=== PATIENT | male | born 1940 | race Caucasian/White ===

== ENCOUNTER → 2016-11-02 | Outpatient (CLI) | payer MEDICARE ==
[2016-11-02 12:49] LABS: Blood Urea Nitrogen 19 mg/dL (9-20); Non-African American GFR(MDRD) 57 (>60 ml/min/1.73 sqM)
--- NOTE | 2016-11-02 14:07 | CT ---
EXAMINATION TYPE: CT chest w con DATE OF EXAM: 11/02/2016 1:39 PM COMPARISON: 08/01/2016 HISTORY: Lung CA CT DLP: 489.7 mGycm Automated exposure control for dose reduction was used. CONTRAST: CT scan of the chest is performed with IV Contrast, patient injected with 80 mL of Visipaque 320. FINDINGS: LUNGS: Upper thoracic right paraspinal mass is again noted and currently measures 2.9 x 1.7 cm versus 2.8 x 1.7 cm previously. No additional paraspinal masses are seen. The lungs are grossly clear, ther e is no concerning parenchymal mass or nodule identified. Continued a partially loculated left-sided pleural effusion with associated pleural thickening. The tracheobronchial tree is patent. MEDIASTINUM: There are no greater than 1 cm hilar or mediastinal lymph nodes. No pericardial effusi on is seen. Thoracic aorta is of normal caliber. The heart is not enlarged. UPPER ABDOMEN: No significant abnormality appreciated. OTHER: 4.5 cm left renal cyst. IMPRESSION: 1. Essentially stable evaluation of the chest with stable right paraspinal mass and stable left basil ar partially loculated effusion.
== END | disposition home or self-care (01) ==
LOC: RADCTMAIN 12:01
PROVIDERS: ATTEND Internal Medicine Hematology & Oncology
DX: J90 Pleural effusion, not elsewhere classified (principal); C34.11 Malignant neoplasm of upper lobe, right bronchus or lung
CPT/HCPCS: 82565; 84520; 71260; 36415; Q9967

== ENCOUNTER → 2017-01-16 | Outpatient (CLI) | payer MEDICARE ==
[2017-01-16 09:24] LABS: Blood Urea Nitrogen 22 mg/dL (9-20); Non-African American GFR(MDRD) 59 (>60 ml/min/1.73 sqM)
--- NOTE | 2017-01-16 10:51 | CT ---
EXAMINATION TYPE: CT chest w con DATE OF EXAM: 01/16/2017 10:13 AM COMPARISON: 11/02/2016 HISTORY: Patient has no complaints at time of study. Follow up study for known lung CA. CT DLP: 424.3 mGycm, Automated exposure control for dose reduction was used. CONTRAST: Performed injected with 80 mL of Visipaque 320. TECHNIQUE: Axial images were obtained at 5 mm thick sections. Reconstructed images are reviewed on [facility] computer in the coronal plane. FINDINGS: Portion of the thyroid visualized is normal. There is a nodular density in the posterior medial right lung apex measuring 1.7 x 2.6 cm versus 2.9 x 1.7 previously. No enlargement is evident. There is a 1.0 cm lymph node anterior to the ascending thoracic aorta which is smaller from prior. T ascending aorta diameter at the level of the main pulmonary artery is 4.0 cm. The main pulmonary artery diameter at the bifurcation is 3.0 cm. Coronary artery calcifications present. There is a small left pleural fluid collection may be smaller than prior study. Limited CT sections are obtained through the upper abdomen. Abdomen is essentially unremarkable. IMPRESSIONS: 1. Slight diminished size of the paraspinal mass and borderline size superior mediastinal lymph node comparison of October 2016.
== END | disposition home or self-care (01) ==
LOC: RADCTMAIN 08:42
PROVIDERS: ATTEND Internal Medicine Hematology & Oncology
DX: C34.11 Malignant neoplasm of upper lobe, right bronchus or lung (principal)
CPT/HCPCS: 82565; 84520; 71260; 36415; Q9967

== ENCOUNTER → 2017-04-10 | Outpatient (CLI) | payer MEDICARE ==
--- NOTE | 2017-04-10 14:59 | CT ---
EXAMINATION TYPE: CT chest wo con DATE OF EXAM: 04/10/2017 COMPARISON: 01/16/2017 HISTORY: Patient complains of chest tightness with known history of chest CA. CT DLP: 452.[address] of the chest was performed with lung and mediastinal window settings submitted. Contras t was not utilized given abnormal renal function testing. The lack of contrast limits evaluation of t he vascular, mediastinal and parenchymal structures including the upper abdomen. LUNGS: Right paraspinal mass of indeterminate etiology is unchanged and measures 1.6 x 2.6 cm versus 2.6 x 1.7 cm previously. Stable loculated pleural effusion small in size left lower lobe and associat ed left basilar density. No evidence for left lower lobe mass. Stable right lower lobe pulmonary nodu le measuring 3 mm. No additional nodules seen at this time. MEDIASTINUM/HENRIETTA: Ectasia and atheromatous change of the thoracic aorta. The heart is mildly enlarged . No evidence for mediastinal mass. Stable mediastinal lymph nodes. UPPER ABDOMEN: No significant abnormality is seen. OTHER: No significant other abnormality. IMPRESSION: 1. Stable appearance of the chest with loculated left basilar effusion with adjacent parenchymal sca rring or atelectasis and mild pleural thickening. 2. Smoothly marginated right paraspinal mass is also unchanged as is a right lower lobe pulmonary nod ule.
== END | disposition home or self-care (01) ==
LOC: RADCTMAIN 13:20
PROVIDERS: ATTEND Internal Medicine Hematology & Oncology
DX: C34.11 Malignant neoplasm of upper lobe, right bronchus or lung (principal); J91.0 Malignant pleural effusion
CPT/HCPCS: 71250; 82565; 84520

== ENCOUNTER 2017-08-17 12:20 | Emergency (ER) | payer MEDICARE ==
[2017-08-17] MEDS ORDERED: SODIUM CHLORIDE 0.9% 500 ML IV ONE (12:48)
[2017-08-17] MEDS ORDERED: ACETAMINOPHEN TAB 325 MG TAB PO STA (12:48)
--- NOTE | 2017-08-17 12:48 | ED ---
URI HPI - General Chief Complaint: Upper Respiratory Infection Stated Complaint: COUGH/CA PT Time Seen by Provider: 08/17/17 12:28 Source: patient Mode of arrival: ambulatory Limitations: no limitations - History of Present Illness Initial Comments: 77-year-old male patient presents to the emergency department today for evaluation of cough, congestion, and upper respiratory symptoms. Patient states that symptoms started approximately 2 days ago. Patient states he has felt chilled and feverish with this. Patient states that his is sick with similar symptoms. He states that he does get mildly short of breath with activity. States he does have some left-sided chest pain with coughing. 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 His only treatment has been thoracentesis to drain fluid. He states that additionally at 1 month ago he slipped on the ice, breaking a rib on the left side. Patient reports that he is coughing of dark colored sputum. The states he does have nasal congestion. He denies taking anything for pain or fever today. He reports he does receive the influenza and pneumonia vaccines. Patient denies any recent rash, abdominal pain, nausea, vomiting, diarrhea, constipation, back pain, numbness, tingling, dizziness, weakness, hematuria, dysuria, urinary urgency, urinary frequency, headache, visual changes, or any other complaints. - Related Data Home Medications Medication Instructions Recorded Confirmed FLUoxetine HCL [PROzac] 20 mg PO DAILY 08/05/14 12/02/15 Fluticasone Propionate [Flonase] 1 - 2 spray EA NOSTRIL DAILY 08/05/14 12/02/15 Fluticasone/Salmeterol [Advair 1 inhalation PO BID 08/05/14 12/02/15 250-50 Diskus] Levothyroxine Sodium [Synthroid] 50 mcg PO DAILY 08/05/14 12/02/15 Montelukast [Singulair] 10 mg PO HS 08/05/14 12/02/15 Omeprazole [PriLOSEC] 40 mg PO DAILY 08/05/14 12/02/15 Pravastatin Sodium [Pravachol] 40 mg PO HS 08/05/14 12/02/15 Tamsulosin [Flomax] 0.4 mg PO DAILY 08/05/14 12/02/15 amLODIPine BESYLATE [Norvasc] 10 mg PO DAILY 08/05/14 12/02/15 Cetirizine HCl [Zyrtec] 10 mg PO DAILY 11/24/15 12/02/15 Clopidogrel Bisulfate [Clopidogrel] 75 mg PO DAILY 12/02/15 12/03/15 Previous Rx's Medication Instructions Recorded ALPRAZolam [Xanax] 0.25 mg PO Q8H PRN #20 tab 11/26/15 HYDROcodone/APAP 5-325MG [[place] 1 each PO Q6HR PRN #20 tab 11/26/15 5-325] Ipratropium Nebulized [Atrovent 0.5 mg INHALATION QID #120 neb 11/26/15 Nebulized] Levalbuterol Nebulized [Xopenex 1.25 mg INHALATION QID #120 ml 11/26/15 Nebulized] Multivitamins, Thera [Multivitamin 1 each PO DAILY@1200 #30 tab 11/26/15 (formulary)] Azithromycin [Zithromax] 500 mg PO DAILY #7 tab 11/27/15 Cefuroxime Axetil [Ceftin] 500 mg PO BID #14 tablet 11/27/15 predniSONE 10 mg PO DIRECTED #30 tab 11/27/15 Benzonatate [Tessalon Perles] 100 mg PO TID PRN #15 capsule 08/17/17 Oseltamivir [Tamiflu] 75 mg PO Q12HR #10 cap 08/17/17 Allergies Allergy/AdvReac Type Severity Reaction Status Date / Time No Known Allergies Allergy Verified 08/17/17 12:26 Review of Systems ROS Statement: Those systems with pertinent positive or pertinent negative responses have been documented in the HPI. ROS Other: All systems not noted in ROS Statement are negative. Past Medical History Past Medical History: Asthma, Cancer, COPD, GERD/Reflux, Osteoarthritis (OA), Pneumonia, Sleep Apnea/CPAP/BIPAP Additional Past Medical History / Comment(s): DIVERTICULITIS,GERD, PAST SMALL BOWEL OBSTRUCTION(HAS SX), BRONCHITIS, STATED HAS BEEN TO PAIN MANAGMENT FOR BACK PAIN, SHINGLES 1970'S, DOES'NT USE CPAP MACHINE FOR HIS SLEEP APNEA.PROSTATE CANCER 2006-HAD RADIATION [place] History of Any Multi-Drug Resistant Organisms: None Reported Past Surgical History: Bowel Resection, Heart Catheterization With Stent, Orthopedic Surgery, Tonsillectomy Additional Past Surgical History / Comment(s): SOL EAR SX,SINUS SX X2, PT STATED HE AHD SX FOR GERD/HIATAL HERNIA, BOWEL RESECTON D/T RUPTUR-HAD TEMPROARY COLOSTOMY-SINCE REVERSED, BOWEL SX FOR SBO, SOL SHOULDER REPLACMENT, SOL KNEE REPLACMENT. Past Anesthesia/Blood Transfusion Reactions: Motion Sickness Date of Last Stent Placement:: UNK Past Psychological History: No Psychological Hx Reported Smoking Status: Former smoker Past Alcohol Use History: Rare Past Drug Use History: None Reported - Past Family History Mother Family Medical History: Cancer Additional Family Medical History / Comment(s): MULTIPLE MEYLOMA Father Family Medical History: Cancer Additional Family Medical History / Comment(s): LUNG CANCER Sister(s) Family Medical History: Cancer Son(s) Family Medical History: Cancer General Exam Limitations: no limitations General appearance: alert, in no apparent distress, other (This is a well- developed, well-nourished elderly male patient in no acute distress. Vital signs upon presentation are temperature 99.0F, pulse 104, respirations 17, blood pressure 133/86, pulse ox 94% on room air.) Eye exam: Present: normal appearance, PERRL, EOMI. Absent: scleral icterus, conjunctival injection, periorbital swelling ENT exam: Present: normal exam, normal oropharynx, mucous membranes moist, TM's normal bilaterally Neck exam: Present: normal inspection. Absent: tenderness, meningismus, lymphadenopathy Respiratory exam: Present: normal lung sounds bilaterally, chest wall tenderness (Left sided). Absent: respiratory distress, wheezes, rales, rhonchi , stridor Cardiovascular Exam: Present: normal rhythm, tachycardia, normal heart sounds. Absent: systolic murmur, diastolic murmur, rubs, gallop, clicks GI/Abdominal exam: Present: soft, normal bowel sounds. Absent: distended, tenderness, guarding, rebound, rigid Neurological exam: Present: alert, oriented X3, CN II-XII intact Psychiatric exam: Present: normal affect, normal mood Skin exam: Present: warm, dry, intact, normal color. Absent: rash Course Vital Signs 08/17/17 08/17/17 08/17/17 12:21 13:00 14:19 Temperature 99.0 F 99 F Pulse Rate 104 H 100 95 Respiratory 17 24 18 Rate Blood Pressure 133/86 131/82 150/88 O2 Sat by Pulse 94 L 94 L 95 Oximetry Medical Decision Making - Medical Decision Making 77-year-old male patient presented to the emergency department today with complaints of upper respiratory symptoms and cough 2 days. Patient physical examination was unremarkable. Lungs are clear. Temperature was mildly elevated with some tachycardia. Patient was given IV fluids and antipyretics. Vital signs did improve during stay. Patient lab work was reviewed and did show a positive influenza A. Patient will be treated with Tamiflu and Tessalon Perles for cough. He is instructed to increase fluids, rest, and follow-up with his doctor in 2 days for recheck. He is instructed to return here immediate for any new, worsening, or concerning symptoms. He verbalizes understanding and agrees with this plan. - Lab Data Result diagrams: 08/17/17 12:55 08/17/17 12:55 Lab Results 08/17/17 08/17/17 08/17/17 Range/Units 12:55 12:55 12:55 WBC 7.1 (3.8-10.6) k/uL RBC 4.50 (4.30-5.90) m/uL Hgb 13.2 (13.0-17.5) gm/dL Hct 40.6 (39.0-53.0) % MCV 90.3 (80.0-100.0) fL MCH 29.3 (25.0-35.0) pg MCHC 32.4 (31.0-37.0) g/dL RDW 15.6 H (11.5-15.5) % Plt Count 172 (150-450) k/uL Neutrophils % 84 % Lymphocytes % 6 % Monocytes % 6 % Eosinophils % 3 % Basophils % 0 % Neutrophils # 5.9 (1.3-7.7) k/uL Lymphocytes # 0.4 L (1.0-4.8) k/uL Monocytes # 0.4 (0-1.0) k/uL Eosinophils # 0.2 (0-0.7) k/uL Basophils # 0.0 (0-0.2) k/uL Sodium 135 L (137-145) mmol/L Potassium 4.4 (3.5-5.1) mmol/L Chloride 102 (98-107) mmol/L Carbon Dioxide 23 (22-30) mmol/L Anion Gap 10 mmol/L BUN 15 (9-20) mg/dL Creatinine 1.10 (0.66-1.25) mg/dL Est GFR (MDRD) Af Amer >60 (>60 ml/min/1.73 sqM) Est GFR (MDRD) Non-Af >60 (>60 ml/min/1.73 sqM) Glucose 109 H (74-99) mg/dL Plasma Lactic Acid Vel (0.7-2.0) mmol/L Calcium 10.0 (8.4-10.2) mg/dL Influenza Type A RNA Detected H (Not Detectd) Influenza Type B (PCR) Not Detected (Not Detectd) 08/17/17 Range/Units 12:55 WBC (3.8-10.6) k/uL RBC (4.30-5.90) m/uL Hgb (13.0-17.5) gm/dL Hct (39.0-53.0) % MCV (80.0-100.0) fL MCH (25.0-35.0) pg MCHC (31.0-37.0) g/dL RDW (11.5-15.5) % Plt Count (150-450) k/uL Neutrophils % % Lymphocytes % % Monocytes % % Eosinophils % % Basophils % % Neutrophils # (1.3-7.7) k/uL Lymphocytes # (1.0-4.8) k/uL Monocytes # (0-1.0) k/uL Eosinophils # (0-0.7) k/uL Basophils # (0-0.2) k/uL Sodium (137-145) mmol/L Potassium (3.5-5.1) mmol/L Chloride (98-107) mmol/L Carbon Dioxide (22-30) mmol/L Anion Gap mmol/L BUN (9-20) mg/dL Creatinine (0.66-1.25) mg/dL Est GFR (MDRD) Af Amer (>60 ml/min/1.73 sqM) Est GFR (MDRD) Non-Af (>60 ml/min/1.73 sqM) Glucose (74-99) mg/dL Plasma Lactic Acid Vel 1.6 (0.7-2.0) mmol/L Calcium (8.4-10.2) mg/dL Influenza Type A RNA (Not Detectd) Influenza Type B (PCR) (Not Detectd) - Radiology Data Radiology results: report reviewed, image reviewed Two-view x-ray of the chest was obtained, impression by Dr. Cedillo shows chronic parenchymal change or tiny left pleural effusion associated left basilar scarring and/or atelectasis redemonstrated. No no infiltrate is seen. No significant change from the most recent study or CT noted. Disposition Clinical Impression: Influenza A Disposition: HOME SELF-CARE Condition: Good Instructions: Influenza (ED) Additional Instructions: Rest, increase fluids, take medications as directed. Follow-up with your primary care physician for recheck in 1-2 days. Return here immediately for any new, worsening, or concerning symptoms. Prescriptions: Benzonatate [Tessalon Perles] 100 mg PO TID PRN #15 capsule PRN Reason: Cough Oseltamivir [Tamiflu] 75 mg PO Q12HR #10 cap Referrals: Roxie Melendez DO [Primary Care Provider] - 1-2 days Time of Disposition: 13:53
[2017-08-17 13:13] LABS: Basophils % (A) 0 %; CH 30.5; CHCM 33.9; Eosinophils # (A) 0.2 k/uL (0-0.7); Eosinophils % (A) 3 %; HCT 40.6 % (39.0-53.0); HDW 2.55; HGB 13.2 gm/dL (13.0-17.5); Luc # (Auto) 0.11; Luc % (Auto) 2; Lymphocytes # (A) 0.4 k/uL (1.0-4.8); Lymphocytes % (A) 6 %; MCH 29.3 pg (25.0-35.0); MCHC 32.4 g/dL (31.0-37.0); MCV 90.3 fL (80.0-100.0); Mean Platelet Volume 7.4; Monocytes # (A) 0.4 k/uL (0-1.0); Monocytes % (A) 6 %; Neutrophils # (A) 5.9 k/uL (1.3-7.7); Neutrophils % (A) 84 %; RDW 15.6 % (11.5-15.5); WBC 7.1 k/uL (3.8-10.6); WBC (Perox) 7.26
--- NOTE | 2017-08-17 13:29 | XR ---
EXAMINATION TYPE: XR chest 2V DATE OF EXAM: 08/17/2017 COMPARISON: CT chest April 10, 2017 2 view chest x-ray January 20, 2016 HISTORY: Chest pain per order. Cough for a few days. TECHNIQUE: Frontal and lateral views of the chest are obtained. FINDINGS: Metallic hardware from bilateral shoulder surgery is partially imaged. Cardiac silhouette size is stable and upper limits of normal with atherosclerotic and ectatic thoracic aorta. There is c hronic parenchymal change with persistent tiny left pleural effusion and associated left basilar atel ectasis and/or scarring, this is improved from prior chest x-ray not significant change from recent C T. Right lung remains clear. IMPRESSION: Chronic parenchymal change with tiny left pleural effusion and associated left basilar s carring and/or atelectasis redemonstrated. No new infiltrate is seen. No significant change from most recent study or CT noted.
[2017-08-17 13:34] LABS: Anion Gap 10 mmol/L; Blood Urea Nitrogen 15 mg/dL (9-20); Carbon Dioxide 23 mmol/L (22-30); Chloride 102 mmol/L (98-107); Glucose 109 mg/dL (74-99); Non-African American GFR(MDRD) >60 (>60 ml/min/1.73 sqM); Potassium 4.4 mmol/L (3.5-5.1); Sodium 135 mmol/L (137-145)
[2017-08-17 14:20] VITALS: BP 150/88; PULSE 95; RESP 18; TEMP 99
== END 2017-08-17 14:19 | disposition home or self-care (01) ==
LOC: EC 12:20
DX: J10.1 Influenza due to other identified influenza virus with other respiratory manifestations (principal); R00.0 Tachycardia, unspecified; J44.9 Chronic obstructive pulmonary disease, unspecified; K21.9 Gastro-esophageal reflux disease without esophagitis; G47.30 Sleep apnea, unspecified; Z99.89 Dependence on other enabling machines and devices; Z85.46 Personal history of malignant neoplasm of prostate; Z87.891 Personal history of nicotine dependence; Z87.01 Personal history of pneumonia (recurrent); Z79.51 Long term (current) use of inhaled steroids; Z79.899 Other long term (current) drug therapy
CPT/HCPCS: 36415; 71020; 80048; 83605; 85025; 87040; 87502; 93005; 96360; 99284

== ENCOUNTER → 2017-09-04 | Outpatient (CLI) | payer MEDICARE ==
[2017-09-04 08:21] LABS: Blood Urea Nitrogen 25 mg/dL (9-20)
--- NOTE | 2017-09-04 09:19 | CT ---
EXAMINATION TYPE: CT chest w con DATE OF EXAM: 09/04/2017 COMPARISON: 04/10/2017 HISTORY: Lung cancer CT DLP: 527 mGycm Automated exposure control for dose reduction was used. CONTRAST: CT scan of the chest is performed with IV Contrast, patient injected with 100 ml mL of Omnipaque 300. FINDINGS: LUNGS: Right paraspinal mass of indeterminate etiology is unchanged and measures 1.6 x 2.6 cm versus 2.6 x 1.7 cm previously. Stable loculated pleural effusion small in size left lower lobe and associat ed left basilar density. No evidence for left lower lobe mass. Stable right lower lobe pulmonary nodu le measuring 3 mm. No additional nodules seen at this time. Additional 3 mm nodule in the right upper lobe and perihilar region stable relative to the previous axial image 30. Emphysematous changes sugg est COPD. MEDIASTINUM: Ectasia and atheromatous change of the thoracic aorta. The heart is mildly enlarged. No evidence for mediastinal mass. Stable mediastinal lymph nodes. Dense coronary artery calcification no moody and there is a trace of pericardial fluid or thickening. Shotty mediastinal and hilar adenopathy. OTHER: Hypertrophic and degenerative change of the spine. Stable upper pole left renal cyst measurin g 1 Hounsfield unit. Postsurgical change left shoulder. IMPRESSION: 1. Stable appearance of the chest with loculated left basilar effusion with adjacent parenchymal scar ring or atelectasis and mild pleural thickening. 2. Smoothly marginated right paraspinal mass is also unchanged as is a right lower lobe pulmonary nod ule.
== END | disposition home or self-care (01) ==
LOC: RADCTMAIN 07:40
PROVIDERS: ATTEND Internal Medicine Hematology & Oncology
DX: C34.11 Malignant neoplasm of upper lobe, right bronchus or lung (principal); J91.0 Malignant pleural effusion; R91.1 Solitary pulmonary nodule
CPT/HCPCS: 82565; 84520; 71260; 36415; Q9967

== ENCOUNTER 2018-02-12 09:44 | Emergency (ER) | payer MEDICARE ==
[2018-02-12 09:51] VITALS: BP 128/72; PULSE 64; RESP 20; TEMP 97.5
[2018-02-12] MEDS ORDERED: predniSONE 20 MG TAB PO STA (10:33)
[2018-02-12] MEDS ORDERED: FAMOTIDINE 20 MG TAB PO STA (10:33)
--- NOTE | 2018-02-12 10:36 | ED ---
General Adult HPI - General Chief complaint: Skin/Abscess/Foreign Body Stated complaint: swelling to back of neck Time Seen by Provider: 02/12/18 10:14 Source: patient Mode of arrival: ambulatory Limitations: no limitations - History of Present Illness Initial comments: Patient is a 77-year-old male who presents with a chief complaint of a skin rash and itching on the back of his neck. This has been going on since Monday when he went to a wedding. The patient cannot identify any inciting incidences though he does state he was wearing a collar sure that was buttoned tightly that he has not worn in several years. The patient denies knowledge of being stung or bit by anything. The patient states that he does not have any pain to the area however it is just itchy. Patient has tried Benadryl which is offered some relief. There are no aggravating or alleviating factors. The patient denies drainage, fever, nausea, vomiting - Related Data Home Medications Medication Instructions Recorded Confirmed FLUoxetine HCL [PROzac] 20 mg PO DAILY 08/05/14 12/02/15 Fluticasone Propionate [Flonase] 1 - 2 spray EA NOSTRIL DAILY 08/05/14 12/02/15 Fluticasone/Salmeterol [Advair 1 inhalation PO BID 08/05/14 12/02/15 250-50 Diskus] Levothyroxine Sodium [Synthroid] 50 mcg PO DAILY 08/05/14 12/02/15 Montelukast [Singulair] 10 mg PO HS 08/05/14 12/02/15 Omeprazole [PriLOSEC] 40 mg PO DAILY 08/05/14 12/02/15 Pravastatin Sodium [Pravachol] 40 mg PO HS 08/05/14 12/02/15 Tamsulosin [Flomax] 0.4 mg PO DAILY 08/05/14 12/02/15 amLODIPine BESYLATE [Norvasc] 10 mg PO DAILY 08/05/14 12/02/15 Cetirizine HCl [Zyrtec] 10 mg PO DAILY 11/24/15 12/02/15 Clopidogrel Bisulfate [Clopidogrel] 75 mg PO DAILY 12/02/15 12/03/15 Previous Rx's Medication Instructions Recorded ALPRAZolam [Xanax] 0.25 mg PO Q8H PRN #20 tab 11/26/15 HYDROcodone/APAP 5-325MG [[place] 1 each PO Q6HR PRN #20 tab 11/26/15 5-325] Ipratropium Nebulized [Atrovent 0.5 mg INHALATION QID #120 neb 11/26/15 Nebulized] Levalbuterol Nebulized [Xopenex 1.25 mg INHALATION QID #120 ml 11/26/15 Nebulized] Multivitamins, Thera [Multivitamin 1 each PO DAILY@1200 #30 tab 11/26/15 (formulary)] Azithromycin [Zithromax] 500 mg PO DAILY #7 tab 11/27/15 Cefuroxime Axetil [Ceftin] 500 mg PO BID #14 tablet 11/27/15 predniSONE 10 mg PO DIRECTED #30 tab 11/27/15 Benzonatate [Tessalon Perles] 100 mg PO TID PRN #15 capsule 08/17/17 Oseltamivir [Tamiflu] 75 mg PO Q12HR #10 cap 08/17/17 Allergies Allergy/AdvReac Type Severity Reaction Status Date / Time No Known Allergies Allergy Verified 02/12/18 09:51 Review of Systems ROS Statement: Those systems with pertinent positive or pertinent negative responses have been documented in the HPI. ROS Other: All systems not noted in ROS Statement are negative. Skin: Reports: rash, lesions Past Medical History Past Medical History: Asthma, Cancer, COPD, GERD/Reflux, Osteoarthritis (OA), Pneumonia, Sleep Apnea/CPAP/BIPAP Additional Past Medical History / Comment(s): DIVERTICULITIS,GERD, PAST SMALL BOWEL OBSTRUCTION(HAS SX), BRONCHITIS, STATED HAS BEEN TO PAIN MANAGMENT FOR BACK PAIN, SHINGLES , DOES'NT USE CPAP MACHINE FOR HIS SLEEP APNEA.PROSTATE CANCER 2006-HAD RADIATION [place] History of Any Multi-Drug Resistant Organisms: None Reported Past Surgical History: Bowel Resection, Heart Catheterization With Stent, Orthopedic Surgery, Tonsillectomy Additional Past Surgical History / Comment(s): SOL EAR SX,SINUS SX X2, PT STATED HE AHD SX FOR GERD/HIATAL HERNIA, BOWEL RESECTON D/T RUPTUR-HAD TEMPROARY COLOSTOMY-SINCE REVERSED, BOWEL SX FOR SBO, SOL SHOULDER REPLACMENT, SOL KNEE REPLACMENT. Past Anesthesia/Blood Transfusion Reactions: Motion Sickness Date of Last Stent Placement:: UNK Past Psychological History: No Psychological Hx Reported Smoking Status: Former smoker Past Alcohol Use History: Rare Past Drug Use History: None Reported - Past Family History Mother Family Medical History: Cancer Additional Family Medical History / Comment(s): MULTIPLE MEYLOMA Father Family Medical History: Cancer Additional Family Medical History / Comment(s): LUNG CANCER Sister(s) Family Medical History: Cancer Son(s) Family Medical History: Cancer General Exam Limitations: no limitations General appearance: alert, in no apparent distress Head exam: Present: atraumatic, normocephalic Eye exam: Present: normal appearance, PERRL ENT exam: Present: normal exam, mucous membranes moist Neck exam: Present: other (Patient has a mildly erythematous area spanning from C7 to the occiput. The affected area is limited to the posterior neck. There is no fluctuance, drainage, or warmth noted. There is a small lesion that is perhaps consistent with an insect bite or sting manipulation of the area is unable to produce any drainage.) Respiratory exam: Present: normal lung sounds bilaterally. Absent: respiratory distress Cardiovascular Exam: Present: regular rate, normal rhythm GI/Abdominal exam: Present: soft. Absent: distended, tenderness Rectal exam: Present: deferred Extremities exam: Present: normal inspection Back exam: Present: normal inspection Neurological exam: Present: alert, oriented X3 Psychiatric exam: Present: normal affect, normal mood Skin exam: Present: warm, dry, intact Course Vital Signs 02/12/18 09:49 Temperature 97.5 F L Pulse Rate 64 Respiratory 20 Rate Blood Pressure 128/72 O2 Sat by Pulse 96 Oximetry Medical Decision Making - Medical Decision Making Patient presents with a chief complaint of urticaria to the back of the neck. On initial evaluation, vitals are stable, patient is in no acute distress. Patient denies any fever, chills, night sweats, nausea or vomiting. The area is indurated however there is no warmth or extensive erythema. There is no tenderness to palpation of the area. There is no fluctuance noted. Physical exam is more consistent with an ALLERGIC process rather than an infectious process. At this time, the patient was instructed to continue taking Benadryl as needed. He was prescribed Pepcid, and prednisone, and was given his first dose of both of those medications in the emergency department. I do not believe that the area is infected however I did write a prescription for Bactrim and instructed the patient not to fill the prescription unless concerning signs arise, which point the patient should start taking the antibiotic and be immediately re-examined. Patient and his are agreeable with this care plan. Disposition Clinical Impression: Contact dermatitis, Urticaria Disposition: HOME SELF-CARE Condition: Good Instructions: Contact Dermatitis (ED) Is patient prescribed a controlled substance at d/c from ED?: No Referrals: Roxie Melendez DO [Primary Care Provider] - 1-2 days
== END 2018-02-12 10:56 | disposition home or self-care (01) ==
LOC: EC 09:44
DX: L25.9 Unspecified contact dermatitis, unspecified cause (principal); L50.9 Urticaria, unspecified; J44.9 Chronic obstructive pulmonary disease, unspecified; K21.9 Gastro-esophageal reflux disease without esophagitis; G47.30 Sleep apnea, unspecified; Z99.89 Dependence on other enabling machines and devices; Z85.46 Personal history of malignant neoplasm of prostate; Z95.5 Presence of coronary angioplasty implant and graft; Z87.891 Personal history of nicotine dependence; Z79.51 Long term (current) use of inhaled steroids; Z79.02 Long term (current) use of antithrombotics/antiplatelets; Z79.899 Other long term (current) drug therapy
CPT/HCPCS: 99283; J7512

== ENCOUNTER → 2018-02-26 | Outpatient (CLI) | payer MEDICARE ==
--- NOTE | 2018-02-26 10:03 | CT ---
EXAMINATION TYPE: CT chest w con DATE OF EXAM: 02/26/2018 COMPARISON: Prior chest CT 09/04/[address] 04/18/2016 HISTORY: Lung CA CT DLP: 658 mGycm Automated exposure control for dose reduction was used. CONTRAST: CT scan of the chest is performed with IV Contrast, patient injected with 80 mL of Isovue 300. FINDINGS: LUNGS: There is been interval development of bilateral groundglass nodules within the lingula and rig ht lower lobe axial image 43 on the right, 32 through 30 on the left. Left lower lobe shows thickened parenchymal bands, pleural thickening similar to prior exam, some scarring suggested. Axial image 41 shows a stable soft tissue nodule measuring 4 mm. There is some scarring at the right costophrenic a ngle. MEDIASTINUM: There are stable mediastinal lymph nodes. No pericardial effusion is seen. Suspect a small hiatal hernia. Coronary artery calcifications are present. AORTA: No additional significant abnormality is seen. OTHER: The right-sided paraspinal soft tissue mass is stable. Bilateral prosthetic noted within the shoulders. Old posterior right rib fractures on the right prior ununited at the ninth and 10th ribs. Cortical cyst again noted at the upper pole of the left kidney, liver shows low attenuation as on ander or. IMPRESSION: New groundglass nodules are present bilaterally, there is some increase in density at po ssible scarring at the left lung base or possibly post treatment change. Metastasis is not excluded.
== END | disposition home or self-care (01) ==
LOC: RADCTMAIN 08:12
PROVIDERS: ATTEND Internal Medicine Hematology & Oncology
DX: R91.8 Other nonspecific abnormal finding of lung field (principal); C34.11 Malignant neoplasm of upper lobe, right bronchus or lung; E78.2 Mixed hyperlipidemia
CPT/HCPCS: 80061; 82565; 84450; 84460; 84520; 71260; 36415; Q9967

== ENCOUNTER → 2018-08-24 | Outpatient (CLI) | payer MEDICARE ==
--- NOTE | 2018-08-24 10:44 | CT ---
EXAMINATION TYPE: CT chest w con DATE OF EXAM: 08/24/2018 COMPARISON: Prior chest CT February 26, [address] studies. HISTORY: Lung cancer diagnosed 3 years ago with history of chemotherapy CT DLP: 617 mGycm. Automated Exposure Control for Dose Reduction was Utilized. TECHNIQUE: CT scan of the thorax is performed following with IV Contrast, patient injected with 100 ml mL of Isovue 300. FINDINGS: LUNGS: There is persistent small to tiny left pleural effusion. There is worsening moderate left lowe r lobe peribronchial wall thickening with ill-defined opacities and consolidation throughout the left lower lobe becoming larger and more confluent in appearance. There is interval improvement or resolution of greater than 1 cm groundglass nodule right lower lobe axial image 43. Some reticulonodular opacities with more mild peribronchial wall thickening in the ri ght lower lung near diaphragm remains present with some progression identified from prior CT. A few s cattered micronodules are seen, for reference is 4 to 5 mm nodule superior posterior right lower lobe axial image 41 that is stable from 2016 CT presumed benign. MEDIASTINUM: There are no greater than 1 cm hilar or mediastinal lymph nodes. Stable small to tiny pe ricardial effusion is seen. Mild cardiomegaly is seen. Severe three-vessel coronary artery calcifica tions redemonstrated. Moderate calcified plaque throughout the aorta is redemonstrated. There is stable 1.9 x 1.5 cm right paravertebral mass axial image [address] presumed benign. OTHER: There is partial visualization of of metallic hardware in the bilateral shoulders causing stre ak artifact limiting evaluation of supraclavicular regions. Old posterior lower right rib fractures are redemonstrated. There is simple appearing exophytic 2.8 cm cyst upper pole level left kidney. Dep endent density in gallbladder favor small stones and/or gallbladder sludge. Liver remains hypodense s ystem with fatty infiltration. Small degree of bilateral gynecomastia is again seen. IMPRESSION: 1. Worsening left basilar moderate peribronchial wall thickening with ill-defined opacities and conso lidation becoming larger and more confluent, cannot exclude recurrent neoplasm. Correlate clinically to exclude acute infectious process. Consider bronchoscopy to further evaluate. Some worsening findin gs right lung base also noted but less prominent versus opposite left side.
== END ==
LOC: RADCTMAIN 08:24
PROVIDERS: ATTEND Internal Medicine Hematology & Oncology
DX: C34.11 Malignant neoplasm of upper lobe, right bronchus or lung (principal); R91.8 Other nonspecific abnormal finding of lung field
CPT/HCPCS: 82565; 84520; 71260; 36415; Q9967

== ENCOUNTER 2018-09-11 08:17 | Day surgery (SDC) | payer MEDICARE ==
[2018-09-10 12:41] VITALS: BMI 29.1
[~2018-09-11 08:17] MED LIST: LACTATED RINGERS 1,000 ML IV SCH; LIDOCAINE 1% 20 ML VIAL (10MG/ML) FOR IV START INTRADERMA PRN
[2018-09-11] MEDS: KETOROLAC 0.5% OPHTH DROPS 5 ML BTL OP ONE ×3 (09:11→09:29)
[2018-09-11] MEDS: PHENYLEPHRINE 10% OPHTH DROPS 5 ML BTL OP ONE ×3 (09:14→09:32)
[2018-09-11] MEDS: CYCLOPENTOLATE 1% OPHTH SOLN 2 ML BTL OP ONE ×3 (09:17→09:35)
[2018-09-11 09:29] VITALS: RESP 16; TEMP 97.8
[2018-09-11 09:39] LABS: Glucose,Whole Blood 95 mg/dL (75-99)
[2018-09-11] MEDS ORDERED: PROPOFOL 10 MG/ML 20 ML VIAL IV ONE (09:50)
[2018-09-11] MEDS ORDERED: HYALURONATE SODIUM INTRAOCULAR 1 EACH SYRINGE (10MG/ML) INTRAOCULA ONE (10:08)
[2018-09-11] MEDS ORDERED: BALANCED SALT IRRIG SOLN COMB2 15 ML IRRIG.SOLN IRRIGATION ONE (10:08)
[2018-09-11] MEDS ORDERED: EPINEPHrine (PF) 0.5 ML in BALANCED SALT IRRIG SOLN COMB2 500 ML IRRIGATION ONE (10:09)
--- NOTE | 2018-09-11 10:21 | P.OP ---
Date of Procedure: 09/11/18 Procedure(s) Performed: PREOPERATIVE DIAGNOSIS: Cataract, left eye. POSTOPERATIVE DIAGNOSIS: Cataract, left eye. OPERATION: Phacoemulsification of cataract, intraocular lens placement, left eye. DESCRIPTION OF PROCEDURE: The patient was taken to the operating room. Intravenous Propofol was given so as to bring about sedation. The following mixture was given for local anesthesia: 5 mL of 2% lidocaine, 5 mL of 0.75% Marcaine, and 1 mL of Wydase. Approximately 4 mL was injected in the retrobulbar space of the surgical eye. Additional 1 mL was then directed to the temporal area of the surgical eye. This was performed to allow adequate neurological block of the facial muscles. The patient was revived. The patient was prepped and draped in the usual sterile manner for the operative eye. A lid speculum was put into position. The conjunctiva was resected back from the limbus in the 12 o'clock position. Bleeding was controlled with electrocautery. A #69 blade was then used and a half-thickness scleral incision approximately 1-mm posterior to the limbus was made on bare sclera. This was shelved in the clear cornea using a crescent knife. Next a 15-degree blade was used to make a stab incision at the 3 o'clock position at the corneolimbal interface. A keratome blade was then used and the superior wound was extended into the anterior chamber. Viscoelastic was injected into the anterior chamber to maintain its form. A cystotome was used and a continuous anterior capsulotomy was made. Hydrodissection of the lens cortex using a blunt cannula and BSS was performed. A phaco probe was then introduced and a groove extending from 12 to 6 o'clock in the lens was created. A Deo wand was used through the stab incision and used to perform a divide and conquer dismantling of the cataract. An irrigation aspiration probe was utilized and any residual cortex was removed from the eye. Again, viscoelastic was injected into the anterior chamber. An Lucian posterior chamber lens implant was placed in a delivery cartridge and injected into the anterior chamber. A Sinskey hook was utilized to spin the lens into position within the capsular bag. The irrigation and aspiration probe was again introduced and any residual viscoelastic was removed from the eye. BSS was injected via blunt canula into the limbal stab incision and the anterior chamber was re-inflated. The conjunctiva was reapproximated using electrocautery. One drop of 0.25% Timoptic was placed over the corneal along with an antibiotic ophthalmic ointment. Two sterile patches and a Omalley eye shield were taped into position. The patient was transported to the recovery room in stable condition. Pathology: none sent Condition: stable Disposition: same day
[2018-09-11 10:39] VITALS: BP 160/97; PULSE 59
[2018-09-11] MEDS ORDERED: BUPIVACAINE (PF) 0.75% 5 ML, HYALURONIDASE, HUMAN RECOMB 150 UNIT, LIDOCAINE 2% (PF) 10... MISCELLANE ONE ×3 (23:00)
[2018-09-11] MEDS ORDERED: TIMOLOL 0.5% OPHTH DROPS 5 ML BTL OP ONE (23:00)
[2018-09-11] MEDS ORDERED: GENTAMICIN/PREDNISOL AC OPHTH OINT 3.5GM OPHTHALMIC ONE (23:00)
== END 2018-09-11 10:56 | disposition home or self-care (01) ==
LOC: OR 08:17
PROVIDERS: ATTEND Ophthalmology
DX: H26.9 Unspecified cataract (principal); I10 Essential (primary) hypertension; K21.9 Gastro-esophageal reflux disease without esophagitis; Z85.9 Personal history of malignant neoplasm, unspecified; F41.1 Generalized anxiety disorder; J44.9 Chronic obstructive pulmonary disease, unspecified; G47.33 Obstructive sleep apnea (adult) (pediatric); Z99.89 Dependence on other enabling machines and devices; N40.0 Benign prostatic hyperplasia without lower urinary tract symptoms; M19.90 Unspecified osteoarthritis, unspecified site; E07.9 Disorder of thyroid, unspecified; Z79.890 Hormone replacement therapy; Z79.899 Other long term (current) drug therapy
CPT/HCPCS: 66984; V2632; J3470; J2001; J0171; J2704

== ENCOUNTER 2018-10-23 10:44 | Day surgery (SDC) | payer MEDICARE ==
[2018-10-18 14:56] VITALS: BMI 28.7
[~2018-10-23 10:44] MED LIST changes: +ALBUTEROL NEB (CONC) 2.5 MG/0.5 ML INHALATION ONE; +LACTATED RINGERS 1,000 ML IV ONE; -LIDOCAINE 1% 20 ML VIAL (10MG/ML) FOR IV START INTRADERMA PRN; +LIDOCAINE 2% (PF) 20 MG/ML 10 ML AMP INHALATION ONE; +LIDOCAINE VISCOUS 2% 15 ML CUP MUCOUS MEM ONE
[2018-10-23] MEDS ORDERED: GLYCOPYRROLATE 0.2 MG/ML 2 ML VIAL ONE (12:05)
[2018-10-23] MEDS ORDERED: KETAMINE 10 MG/ML 20 ML VIAL ONE (12:05)
[2018-10-23] MEDS ORDERED: PROPOFOL 10 MG/ML 20 ML VIAL IV ONE (12:05)
[2018-10-23] MEDS ORDERED: MIDAZOLAM 2 MG/2 ML VIAL ONE (12:05)
[2018-10-23] MEDS ORDERED: LIDOCAINE 2% INJ 20 MG/ML INTRATRACH ONE (12:14)
[2018-10-23 12:49] VITALS: RESP 18; TEMP 98
--- NOTE | 2018-10-23 12:55 | XR ---
EXAMINATION TYPE: XR chest 1V DATE OF EXAM: 10/23/2018 COMPARISON: Prior chest x-ray dated 10/17/2018 HISTORY: Postop status post bronchoscopy TECHNIQUE: Single frontal view of the chest is obtained. FINDINGS: No evident pneumothorax. No sizable effusion. Heart size is stable. Interstitium is increa sed. Postop changes are noted in the shoulders. Basilar increased density shows a similar appearance. There are cardiac leads. IMPRESSION: No evident complication status post bronchoscopy.
--- NOTE | 2018-10-23 13:08 | PCN ---
PROCEDURE NOTE Operative report is a bronchoscopy, bronchoalveolar lavage of the left lower lobe, and multiple transbronchial biopsies of the left lower lobe using fluoroscopy, brushings from the left lower lobe. 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 POSTOPERATIVE DIAGNOSIS: History of adenocarcinoma of the lungs, possible recurrence. ANESTHESIA USED: IV conscious sedation. PROCEDURE: The patient was prepared according to the bronchoscopy protocol. O2 was applied via nasal cannula, patient was placed in the supine position, and we monitored his O2 saturation continuously, blood pressure was intermittently monitored, and cardiac rhythm was continuously monitored. After adequate IV conscious sedation, a few milliliters of lidocaine were instilled into the left naris, and the bronchoscope was advanced down to the area of the vocal cords. Vocal cords were patent, and free of any lesions. Lidocaine was applied over the vocal cords. The bronchoscope was advanced further down to the trachea. Thorough examination was done of the trachea, sloan, right upper lobe, right middle lobe, right lower lobe, left upper lobe, lingula and left lower lobe. There was no evidence of any endobronchial tumors in the airways. Then, lavage of the left lower lobe was done, and the lavage fluid was sent for different diagnostic studies. Brushings using fluoroscopy were also done from the left lower lobe. Then using fluoroscopy, multiple transbronchial biopsies were done from the left lower lobe multiple segments. The procedure was well tolerated. There was no evidence of any immediate complications. Chest x-ray postoperatively was ordered to rule out pneumothorax, and this is pending. MMODL / IJN: [id number] /
[2018-10-23 14:17] VITALS: BP 150/85; PULSE 76
== END 2018-10-23 14:35 | disposition home or self-care (01) ==
LOC: ORWHC2ENDO 10:44
PROVIDERS: ATTEND Internal Medicine
DX: C34.32 Malignant neoplasm of lower lobe, left bronchus or lung (principal)
CPT/HCPCS: 31628; 31623; 31624; 94640; 87798 ×3; 87496; 87498; 87529; 88104; 88108; 88305; 88342; 87252; 87502; 87634; 88341; 87070; 87205; 87116; 87102; 87206; 71045; J2001 ×2; J2250; J2704

== ENCOUNTER → 2018-11-08 | Outpatient (CLI) | payer MEDICARE ==
--- NOTE | 2018-11-08 09:47 | CT ---
EXAMINATION TYPE: CT ChestAbdPelvis w con DATE OF EXAM: 11/08/2018 COMPARISON: 08/24/2018 and 02/26/2018 HISTORY: 78-year-old male lung cancer, observe for metastases, Lung mass TECHNIQUE: Contiguous axial scanning of the chest, abdomen, and pelvis performed with IV Contrast, pa tient injected with 100 ml mL of Isovue 300. Delayed images through the kidneys were obtained. Coron al/sagittal reconstructions performed. CT DLP: 1538.70 mGycm Automated exposure control for dose reduction was used. FINDINGS: CHEST: Heart remains upper limits of normal in size with small pericardial effusion measuring 8 mm thick, un changed. Extensive coronary vessel calcifications are present. Ascending aorta is ectatic at 3.7 cm. Mild atherosclerotic arch calcifications with conventional arch vessel branching anatomy. Upper descending thoracic aorta mildly aneurysmal at 3.2 cm. Mildly enlarged caliber to the main right and left pulmonary arteries at 3.0 and 2.5 cm, respectively , suggesting underlying pulmonary arterial hypertension. Scattered nonenlarged and borderline size mediastinal lymph nodes are redemonstrated. These measure u p to 7 mm in the prevascular space and 8 mm in the AP window region. The AP window lymph node is stab le from 08/24/2018 but smaller from 02/26/2018. Left hilar lymph node stable at 9 mm. No enlarging thor acic lymphadenopathy seen. Continued small left pleural effusion versus chronic pleural thickening, unchanged from 08/24/2018. Patchy and confluent focal opacities are redemonstrated within the basilar left lower lobe with perib ronchial cuffing. This are largely unchanged from 08/24/2018 but noted to be increased from 02/26/2018. One of the more focal areas at the left base, axial image 50 is measured at 2.9 cm now versus approx imately 1.5 cm, previously, difficult to exclude slight increase. Some stable focal density peripheral right base, probably pleural parenchymal scarring. Also, stable 5 mm right lower lobe pulmonary nodule, axial image 43 Along with a stable 2.5 x 1.6 cm smooth, ovoid subpleural mass along the medial right hemithorax/posterior mediastinum, the right lung is relativel y clear. ABDOMEN: Small hiatal hernia. No focal liver lesion or biliary ductal dilatation. Portal venous system is grubbs nt. Gallbladder, adrenal glands, spleen, and pancreas appear within normal limits. Scattered subcentimeter hypodensities in both kidneys too small fractured CT characterization, probab le tiny cysts. A larger 2.5 cm cyst is present in the left upper pole. Moderate atherosclerotic calcifications abdominal aorta and iliac arteries without aneurysm. There is no excretion of contrast from the renal collecting systems on the delayed kidney images, probably du e to early scanning. No dilated small bowel, free fluid, or free air. No mesenteric or retroperitoneal lymphadenopathy. There is focal moderate fold thickening seen involving the cecum/lower ascending colon, refer to ko nal image 44 and axial image 100. Diffuse diverticulosis in the colon and mild overall stool burden. PELVIS: Bladder urine distended. Some brachytherapy seeds within the prostate gland. No abnormal fluid collec tion in the pelvis or pelvic lymphadenopathy. BONES: Degenerative changes lower lumbar spine and mild degenerative disc disease throughout the thoracic sp ine. No osseous destructive process. Bilateral shoulder arthroplasties are demonstrated. IMPRESSION: 1. RELATIVELY STABLE EXTENSIVE FOCAL PATCHY AND CONFLUENT AIRSPACE OPACITIES LEFT LOWER LOBE ( COMP ARED TO 08/24/2018, NOTED TO BE INCREASED FROM 02/26/2018). ONE OF THE MORE FOCAL DENSITIES (AXIAL IMAG E 50) IS MEASURED AT 2.9 CM NOW VERSUS 1.5 CM, PREVIOUSLY). SLIGHT INCREASE IS DIFFICULT TO EXCLUDE. 2. STABLE CHRONIC TRACE LEFT PLEURAL EFFUSION OR PLEURAL THICKENING AND SMALL PERICARDIAL EFFUSION. 3. STABLE 5 MM RIGHT LOWER LOBE PULMONARY NODULE AND SMOOTHLY MARGINATED 2.5 CM CHRONIC RIGHT PARASPI NAL MASS. 4. SOME FOCAL MODERATE FOLD THICKENING OF THE CECUM/LOWER ASCENDING COLON. CORRELATE WITH DIRECT VISU ALIZATION TO EXCLUDE NEOPLASM. 5. INCIDENTAL: CAD, PULMONARY arterial HYPERTENSION, SMALL HIATAL HERNIA, AND DIFFUSE COLONIC DIVERTI CULOSIS.
== END ==
LOC: RADCTMAIN 06:55
PROVIDERS: ATTEND Internal Medicine Hematology & Oncology
DX: I31.3 Pericardial effusion (noninflammatory) (principal); C34.11 Malignant neoplasm of upper lobe, right bronchus or lung
CPT/HCPCS: 82565; 84520; 71260; 74177; Q9967

== ENCOUNTER → 2018-11-28 | Outpatient (CLI) | payer MEDICARE ==
--- NOTE | 2018-11-28 13:10 | CT ---
EXAMINATION TYPE: CT chest w con DATE OF EXAM: 11/28/2018 COMPARISON: 11/08/2018 HISTORY: Shortness of breath. CT DLP: 553.5 mGycm, Automated exposure control for dose reduction was used. CONTRAST: Performed injected with 80 mL of Isovue 300. TECHNIQUE: Axial images were obtained at 5 mm thick sections. Reconstructed images are reviewed on allyve computer in the coronal plane. FINDINGS: Portion of the thyroid visualized is normal. There is a 1.7 x 2.8 cm nodule in the posterior medial right upper lobe. This previously measured 1.6 x 2.5 cm. Multiple small lymph nodes are through the mediastinum including anterior mediastinum aortopulmonic window and pretracheal space. There is a 1.2 cm enlarged lymph node in the lateral aortopulmonic wind ow region. Series 3 image 28. Note is made of a prominent retrocrural node measuring 1.1 cm. Series 3 , image 61. There is a consolidation left lower lobe. Correlate for pneumonia. Underlying neoplasm is not exclude d. Follow-up to clearing is recommended. This area appears larger than the comparison. The ascending aorta diameter at the level of the main pulmonary artery is cm. The main pulmonary artery diameter a t the bifurcation is cm. Limited CT sections are obtained through the upper abdomen. There may be some varicosities versus non dilated small bowel loops within the right upper quadrant. Cholelithiasis is likely present. IMPRESSIONS: 1. Increased size of a nodule in the posterior medial right apex. 2. Increasing consolidation left lower lobe. Underlying mass and neoplasm is not excluded. Follow-up to clearing is recommended. 3. Multiple scattered lymphadenopathy some of which is enlarged in the aortopulmonic window and retro crural regions discussed above
== END | disposition home or self-care (01) ==
LOC: RADCTMAIN 11:31
PROVIDERS: ATTEND Internal Medicine Hematology & Oncology
DX: R91.1 Solitary pulmonary nodule (principal); R59.0 Localized enlarged lymph nodes; C34.11 Malignant neoplasm of upper lobe, right bronchus or lung
CPT/HCPCS: 82565; 84520; 71260; 36415; Q9967

== ENCOUNTER 2018-12-26 20:22 | Inpatient (IN) | payer MEDICARE ==
[2018-12-26] MEDS ORDERED: IPRATROPIUM-ALBUTEROL 3 ML NEB INHALATION STA (20:33)
[2018-12-26] MEDS ORDERED: SODIUM CHLORIDE 0.9% 1,000 ML IV STA ×2 (20:33)
--- NOTE | 2018-12-26 20:48 | ED ---
Seizure HPI - General Stated Complaint: Difficulty Breathing Time Seen by Provider: 12/26/18 20:33 - Related Data Home Medications Medication Instructions Recorded Confirmed FLUoxetine HCL [PROzac] 50 mg PO DAILY 08/05/14 10/18/18 Levothyroxine Sodium [Synthroid] 50 mcg PO DAILY 08/05/14 10/18/18 Montelukast [Singulair] 10 mg PO HS 08/05/14 10/18/18 Omeprazole [PriLOSEC] 40 mg PO DAILY 08/05/14 10/18/18 Pravastatin Sodium [Pravachol] 40 mg PO HS 08/05/14 10/18/18 Tamsulosin [Flomax] 0.4 mg PO BID 08/05/14 10/18/18 Cetirizine HCl [Zyrtec] 10 mg PO DAILY 11/24/15 10/18/18 Folic Acid 1 mg PO DAILY 02/12/18 10/18/18 amLODIPine [Norvasc] 5 mg PO DAILY 02/12/18 10/18/18 Albuterol Inhaler [Ventolin Hfa 1 - 2 puff INHALATION RT-Q6H PRN 09/10/18 10/23/18 Inhaler] Albuterol Nebulized [Ventolin 2.5 mg INHALATION Q6H PRN 09/10/18 10/18/18 Nebulized] Aspirin [Adult Low Dose Aspirin EC] 81 mg PO DAILY 09/10/18 10/18/18 Cholecalciferol [Vitamin D3] 1,000 unit PO DAILY 09/10/18 10/18/18 L.acidoph,Paracasei, B.lactis 1 each PO DAILY 09/10/18 10/18/18 [Probiotic] Allergies Allergy/AdvReac Type Severity Reaction Status Date / Time No Known Allergies Allergy Verified 10/23/18 11:00 Review of Systems ROS Statement: Those systems with pertinent positive or pertinent negative responses have been documented in the HPI. ROS Other: All systems not noted in ROS Statement are negative. Past Medical History Past Medical History: Asthma, Cancer, COPD, GERD/Reflux, Hyperlipidemia, H ypertension, Osteoarthritis (OA), Pneumonia, Respiratory Disorder, Sleep Apnea/CPAP/BIPAP Additional Past Medical History / Comment(s): DIVERTICULITIS, HX GERD WITH SURGERY., HX SMALL BOWEL OBSTRUCTION WITH SURGERY., BRONCHITIS, BACK PAIN., SHINGLES 1970'S, SLEEP APNEA (NO MACHINE)., PROSTATE CANCER 2006-HAD RADIATION [place], LUNG CANCER 2014 WITH CHEMO [place]., changes on recent chest CT History of Any Multi-Drug Resistant Organisms: None Reported Past Surgical History: Bowel Resection, Heart Catheterization With Stent, Orth opedic Surgery, Tonsillectomy Additional Past Surgical History / Comment(s): SOL EAR SX,SINUS SX X2, GERD/HIATAL HERNIA SURGERY, BOWEL RESECTON D/T RUPTURE WITH COLOSTOMY-SINCE REVERSED, SOL SHOULDER REPLACEMENT, SOL KNEE REPLACMENT., left cataract removed Past Anesthesia/Blood Transfusion Reactions: No Reported Reaction, Motion Sickness Date of Last Stent Placement:: 2005 Smoking Status: Current some day smoker - Past Family History Mother Family Medical History: Cancer Additional Family Medical History / Comment(s): MULTIPLE MEYLOMA Father Family Medical History: Cancer Additional Family Medical History / Comment(s): LUNG CANCER Sister(s) Family Medical History: Cancer Son(s) Family Medical History: Cancer Medical Decision Making - EKG Data -: EKG Interpreted by Me (KG shows normal sinus rhythm rate of 93, NE 150, QRS 9 6, QTc 425) Disposition Referrals: Roxie Melendez DO [Primary Care Provider] - 1-2 days
--- NOTE | 2018-12-26 20:58 | ED ---
SOB HPI - General Stated Complaint: Difficulty Breathing Time Seen by Provider: 12/26/18 20:33 Source: RN notes reviewed, old records reviewed - History of Present Illness Initial Comments: This is an 78-year-old male the ER for evaluation. Presents today for evaluation regards to shortness of breath. Patient has severe shortness of breath worsening for a few days no significant history of COPD, history of recurrent episodes of similar episodes and shortness of breath. MD Complaint: shortness of breath, cough -: days(s) Radiation: other (Chest pain across chest which did resolve) Severity: moderate Severity scale (1-10): 6 Quality: aching Consistency: now resolved Improves With: oxygen, rest, bronchodilators, medication Worsens With: exertion, movement Known History Of: COPD, congestive heart failure, other (Cancer) Associated Symptoms: cough, sputum production Treatments Prior to Arrival: oxygen, bronchodilator - Related Data Home Medications Medication Instructions Recorded Confirmed FLUoxetine HCL [PROzac] 20 mg PO DAILY 08/05/14 12/26/18 Levothyroxine Sodium [Synthroid] 50 mcg PO DAILY 08/05/14 12/26/18 Montelukast [Singulair] 10 mg PO HS 08/05/14 12/26/18 Omeprazole [PriLOSEC] 40 mg PO DAILY 08/05/14 12/26/18 Pravastatin Sodium [Pravachol] 40 mg PO HS 08/05/14 12/26/18 Tamsulosin [Flomax] 0.4 mg PO DAILY 08/05/14 12/26/18 Cetirizine HCl [Zyrtec] 10 mg PO DAILY 11/24/15 12/26/18 Folic Acid 1 mg PO DAILY 02/12/18 12/26/18 amLODIPine [Norvasc] 5 mg PO DAILY 02/12/18 12/26/18 Fluticasone Nasal [place] [Flonase 2 spr EA NOSTRIL DAILY 12/26/18 12/26/18 Nasal [place]] Fluticasone/Salmeterol [Advair 1 puff INHALATION RT-BID 12/26/18 12/26/18 250-50 Diskus] Fluticasone/Salmeterol [Advair Hfa 2 puff INHALATION RT-BID PRN 12/26/18 12/26/18 230-21 Mcg Inhaler] Allergies Allergy/AdvReac Type Severity Reaction Status Date / Time No Known Allergies Allergy Verified 12/26/18 21:07 Review of Systems ROS Statement: Those systems with pertinent positive or pertinent negative responses have been documented in the HPI. ROS Other: All systems not noted in ROS Statement are negative. Past Medical History Past Medical History: Asthma, Cancer, COPD, GERD/Reflux, Hyperlipidemia, Hypertension, Osteoarthritis (OA), Pneumonia, Respiratory Disorder, Sleep Apnea/CPAP/BIPAP Additional Past Medical History / Comment(s): DIVERTICULITIS, HX GERD WITH SURGERY., HX SMALL BOWEL OBSTRUCTION WITH SURGERY., BRONCHITIS, BACK PAIN., SHINGLES , SLEEP APNEA (NO MACHINE)., PROSTATE CANCER 2006-HAD RADIATION [place], LUNG CANCER 2014 WITH CHEMO [place]., changes on recent chest CT History of Any Multi-Drug Resistant Organisms: None Reported Past Surgical History: Bowel Resection, Heart Catheterization With Stent, Orthopedic Surgery, Tonsillectomy Additional Past Surgical History / Comment(s): SOL EAR SX,SINUS SX X2, GERD/HIATAL HERNIA SURGERY, BOWEL RESECTON D/T RUPTURE WITH COLOSTOMY-SINCE REVERSED, SOL SHOULDER REPLACEMENT, SOL KNEE REPLACMENT., left cataract removed Past Anesthesia/Blood Transfusion Reactions: No Reported Reaction, Motion Sickness Date of Last Stent Placement:: 2005 Smoking Status: Current some day smoker - Past Family History Mother Family Medical History: Cancer Additional Family Medical History / Comment(s): MULTIPLE MEYLOMA Father Family Medical History: Cancer Additional Family Medical History / Comment(s): LUNG CANCER Sister(s) Family Medical History: Cancer Son(s) Family Medical History: Cancer General Exam General appearance: alert, anxious, in distress Head exam: Present: atraumatic, normocephalic, normal inspection Eye exam: Present: normal appearance, PERRL, EOMI. Absent: scleral icterus, conjunctival injection, periorbital swelling ENT exam: Present: normal exam, mucous membranes moist Neck exam: Present: normal inspection. Absent: tenderness, meningismus, lymphadenopathy Respiratory exam: Present: respiratory distress, wheezes, accessory muscle use, decreased breath sounds, prolonged expiratory. Absent: rales, rhonchi, stridor Cardiovascular Exam: Present: normal rhythm, tachycardia, normal heart sounds. Absent: systolic murmur, diastolic murmur, rubs, gallop, clicks GI/Abdominal exam: Present: soft, normal bowel sounds. Absent: distended, tenderness, guarding, rebound, rigid Extremities exam: Present: normal inspection, full ROM, normal capillary refill. Absent: tenderness, pedal edema, joint swelling, calf tenderness Back exam: Present: normal inspection Neurological exam: Present: alert, oriented X3, CN II-XII intact Psychiatric exam: Present: normal affect, normal mood Skin exam: Present: warm, dry, intact, normal color. Absent: rash Course Vital Signs 12/26/18 12/26/18 12/26/18 20:45 20:55 21:19 Temperature 99.2 F Pulse Rate 110 H 108 H 104 H Respiratory 28 H 32 H Rate Blood Pressure 110/48 93/67 O2 Sat by Pulse 83 L 86 L Oximetry 12/26/18 12/26/18 21:36 21:42 Temperature Pulse Rate 100 96 Respiratory 21 Rate Blood Pressure 119/71 O2 Sat by Pulse 91 L Oximetry - Reevaluation(s) Reevaluation #1: 12/26/18 22:05 Medical record is reviewed Reevaluation #2: 12/26/18 22:05 is continuing with severe hypoxia despite breathing treatments and supplemental O2 Medical Decision Making - Medical Decision Making 78-year-old male the ER for evaluation of severe respiratory distress. Patient presented with significant history of stress hypoxia history of severe COPD. Patient be admitted, placed on high-dose heparin for possible PE. Patient will have VQ scan the morning, will continue with COPD treatment - Lab Data Result diagrams: 12/26/18 20:52 12/26/18 20:52 Lab Results 12/26/18 12/26/18 12/26/18 Range/Units 20:52 20:52 20:52 WBC 5.7 (3.8-10.6) k/uL RBC 4.67 (4.30-5.90) m/uL Hgb 13.4 (13.0-17.5) gm/dL Hct 41.4 (39.0-53.0) % MCV 88.8 (80.0-100.0) fL MCH 28.6 (25.0-35.0) pg MCHC 32.3 (31.0-37.0) g/dL RDW 14.9 (11.5-15.5) % Plt Count 231 (150-450) k/uL Neutrophils % 89 % Lymphocytes % 5 % Monocytes % 3 % Eosinophils % 2 % Basophils % 0 % Neutrophils # 5.1 (1.3-7.7) k/uL Lymphocytes # 0.3 L (1.0-4.8) k/uL Monocytes # 0.2 (0-1.0) k/uL Eosinophils # 0.1 (0-0.7) k/uL Basophils # 0.0 (0-0.2) k/uL Manual Slide Review Performed PT 10.1 (9.0-12.0) sec INR 0.9 (<1.2) APTT 23.7 (22.0-30.0) sec D-Dimer 2.14 H (<0.60) mg/L FEU Sodium 140 (137-145) mmol/L Potassium 3.6 (3.5-5.1) mmol/L Chloride 109 H (98-107) mmol/L Carbon Dioxide 21 L (22-30) mmol/L Anion Gap 10 mmol/L BUN 19 (9-20) mg/dL Creatinine 1.74 H (0.66-1.25) mg/dL Est GFR (CKD-EPI)AfAm 42 (>60 ml/min/1.73 sqM) Est GFR (CKD-EPI)NonAf 36 (>60 ml/min/1.73 sqM) Glucose 88 (74-99) mg/dL Calcium 9.6 (8.4-10.2) mg/dL Magnesium 1.3 L (1.6-2.3) mg/dL Total Bilirubin 0.6 (0.2-1.3) mg/dL AST 14 L (17-59) U/L ALT 17 L (21-72) U/L Alkaline Phosphatase 109 (38-126) U/L Troponin I (0.000-0.034) ng/mL Total Protein 5.8 L (6.3-8.2) g/dL Albumin 3.3 L (3.5-5.0) g/dL 12/26/18 Range/Units 20:52 WBC (3.8-10.6) k/uL RBC (4.30-5.90) m/uL Hgb (13.0-17.5) gm/dL Hct (39.0-53.0) % MCV (80.0-100.0) fL MCH (25.0-35.0) pg MCHC (31.0-37.0) g/dL RDW (11.5-15.5) % Plt Count (150-450) k/uL Neutrophils % % Lymphocytes % % Monocytes % % Eosinophils % % Basophils % % Neutrophils # (1.3-7.7) k/uL Lymphocytes # (1.0-4.8) k/uL Monocytes # (0-1.0) k/uL Eosinophils # (0-0.7) k/uL Basophils # (0-0.2) k/uL Manual Slide Review PT (9.0-12.0) sec INR (<1.2) APTT (22.0-30.0) sec D-Dimer (<0.60) mg/L FEU Sodium (137-145) mmol/L Potassium (3.5-5.1) mmol/L Chloride (98-107) mmol/L Carbon Dioxide (22-30) mmol/L Anion Gap mmol/L BUN (9-20) mg/dL Creatinine (0.66-1.25) mg/dL Est GFR (CKD-EPI)AfAm (>60 ml/min/1.73 sqM) Est GFR (CKD-EPI)NonAf (>60 ml/min/1.73 sqM) Glucose (74-99) mg/dL Calcium (8.4-10.2) mg/dL Magnesium (1.6-2.3) mg/dL Total Bilirubin (0.2-1.3) mg/dL AST (17-59) U/L ALT (21-72) U/L Alkaline Phosphatase (38-126) U/L Troponin I <0.012 (0.000-0.034) ng/mL Total Protein (6.3-8.2) g/dL Albumin (3.5-5.0) g/dL - EKG Data -: EKG Interpreted by Me (EKG shows sinus tachycardia rate of 109, [place] 144, QRS 70, QTc 422) - Radiology Data Radiology results: report reviewed (Chest x-ray), image reviewed Critical Care Time Critical Care Time: Yes Total Critical Care Time: 31 Disposition Clinical Impression: Acute respiratory failure with hypoxia, Acute exacerbation of chronic obstructive pulmonary disease (COPD), Hypoxia Disposition: ADMITTED IP TO THIS [facility] Condition: Serious Is patient prescribed a controlled substance at d/c from ED?: No Referrals: Roxie Melendez DO [Primary Care Provider] - 1-2 days
[2018-12-26 21:13] LABS: Basophils % (A) 0 %; Eosinophils # (A) 0.1 k/uL (0-0.7); Eosinophils % (A) 2 %; HCT 41.4 % (39.0-53.0); HGB 13.4 gm/dL (13.0-17.5); Lymphocytes # (A) 0.3 k/uL (1.0-4.8); Lymphocytes % (A) 5 %; MCH 28.6 pg (25.0-35.0); MCHC 32.3 g/dL (31.0-37.0); MCV 88.8 fL (80.0-100.0); Mean Platelet Volume 6.9; Monocytes # (A) 0.2 k/uL (0-1.0); Monocytes % (A) 3 %; Neutrophils # (A) 5.1 k/uL (1.3-7.7); Neutrophils % (A) 89 %; Platelet Count 231 k/uL (150-450); RBC 4.67 m/uL (4.30-5.90); RDW 14.9 % (11.5-15.5); WBC 5.7 k/uL (3.8-10.6)
[2018-12-26 21:17] LABS: Albumin 3.3 g/dL (3.5-5.0); Calcium 9.6 mg/dL (8.4-10.2); Magnesium 1.3 mg/dL (1.6-2.3); Potassium 3.6 mmol/L (3.5-5.1); Total Bilirubin 0.6 mg/dL (0.2-1.3); Total Protein 5.8 g/dL (6.3-8.2)
[2018-12-26] MEDS ORDERED: methylPREDNISolone SOD SUCCI 125 MG/2 ML VIAL IV STA (21:21)
[2018-12-26] MEDS ORDERED: IPRATROPIUM 0.5 MG/2.5 ML NEBU INHALATION STA (21:21)
[2018-12-26] MEDS ORDERED: ALBUTEROL NEBULIZED 2.5 MG/3 ML INHALATION STA (21:21)
[2018-12-26 21:24] LABS: INR 0.9 (<1.2); Partial Thromboplastin Time 23.7 sec (22.0-30.0); Prothrombin Time 10.1 sec (9.0-12.0)
[2018-12-26 21:29] LABS: D-Dimer 2.14 mg/L FEU (<0.60)
[2018-12-26] MEDS ORDERED: NITROGLYCERIN SL TABS 0.4 MG TAB SUBLINGUAL PRN (22:06)
[2018-12-26] MEDS ORDERED: ASPIRIN 81 MG PO STA (22:06)
[2018-12-26] MEDS ORDERED: ALBUTEROL NEBULIZED 2.5 MG/3 ML INHALATION PRN (22:06)
[2018-12-26] MEDS ORDERED: HEPARIN SODIUM,PORCINE 10,000 UNIT/ML 1 ML VIAL IV ONE (22:11)
[2018-12-26] MEDS ORDERED: HEPARIN SODIUM,PORCINE 5,000 UNIT/ML 1 ML VIAL IV PRN (22:11)
--- NOTE | 2018-12-26 22:27 | XR ---
EXAM: XR Chest, 2 Views CLINICAL HISTORY: Cough. ITS.REASON XR Reason: Pain TECHNIQUE: Frontal and lateral views of the chest. COMPARISON: 12/06/18. FINDINGS: Lungs: Left greater than right lung opacities, increased compared to prior. Pleural space: Trace pleural effusions not excluded. No pneumothorax. Heart: Likely stable cardiomediastinal silhouette. Mediastinum: See above. Bones/joints: Postsurgical changes again noted at the bilateral shoulders. IMPRESSION: 1. Bilateral lung opacities, increased compared to prior. Correlate clinically regarding infection and/or edema. 2. Trace pleural effusions not excluded.
[2018-12-26] MEDS: MAGNESIUM SULFATE-D5W PMX 1 GM in DEXTROSE/WATER 1 100ML.BAG IVPB SCH (22:48)
[2018-12-26] MEDS: HEPARIN SOD,PORK IN 0.45% NACL 25,000 UNIT in 0.45% NACL 1 250ML.BAG IV SCH (23:19)
[2018-12-26] MEDS: SODIUM CHLORIDE 0.9% 1,000 ML IV SCH (23:24)
[2018-12-27] MEDS: MAGNESIUM SULFATE-D5W PMX 1 GM in DEXTROSE/WATER 1 100ML.BAG IVPB SCH (00:24)
[2018-12-27] MEDS: methylPREDNISolone SOD SUCCI 125 MG/2 ML VIAL IV SCH ×5 (00:24→23:31)
[2018-12-27 03:57] LABS: Basophils % (A) 0 %; Eosinophils # (A) 0.1 k/uL (0-0.7); Eosinophils % (A) 1 %; HGB 13.4 gm/dL (13.0-17.5); Lymphocytes # (A) 0.2 k/uL (1.0-4.8); Lymphocytes % (A) 2 %; MCH 29.3 pg (25.0-35.0); MCHC 32.6 g/dL (31.0-37.0); MCV 89.9 fL (80.0-100.0); Mean Platelet Volume 6.8; Monocytes # (A) 0.3 k/uL (0-1.0); Monocytes % (A) 3 %; Neutrophils # (A) 8.7 k/uL (1.3-7.7); Neutrophils % (A) 93 %; Platelet Count 211 k/uL (150-450); RBC 4.56 m/uL (4.30-5.90); RDW 14.8 % (11.5-15.5); WBC 9.4 k/uL (3.8-10.6)
[2018-12-27 04:26] LABS: Partial Thromboplastin Time 125.6 sec (22.0-30.0)
[2018-12-27 05:46] LABS: Cholesterol 125 mg/dL (<200); HDL Cholesterol 44 mg/dL (40-60); LDL Cholesterol,Calculated 71 mg/dL (0-99); Triglycerides 50 mg/dL (<150)
[2018-12-27] MEDS: INSULIN ASPART (NovoLOG) 100 UNIT/ML VIAL SQ SCH ×4 (06:39→20:44)
[2018-12-27] MEDS: IPRATROPIUM-ALBUTEROL 3 ML NEB INHALATION SCH ×4 (08:12→20:02)
--- NOTE | 2018-12-27 09:16 | NM ---
EXAMINATION TYPE: NM pul vent and perfuse DATE OF EXAM: 12/27/2018 COMPARISON: Chest x-ray 12/26/2018 HISTORY: Pulmonary embolism TECHNIQUE: Utilizing inhalation of 64.4 mCi Tc 99m DTPA aerosol and intravenous injection of 5.46 mC i of Tc 99m MAA, ventilation and perfusion images are acquired post injection in multiple projections . FINDINGS: There is diminished radiotracer accumulation throughout the left lung compared to the right. Moderate size defect in the left upper lobe appears to be present. Findings appear to be matched between vent ilation and perfusion. Moderate and large mismatched defects are not evident. Findings match the [facility] t x-ray findings. Small pleural effusion on the left is matched with perfusion and ventilation defect s. A triple matched defect as the low end of intermediate probability for pulmonary embolism, approxi mately 22%. IMPRESSION: Low end of intermediate probability for pulmonary embolism.
--- NOTE | 2018-12-27 09:48 | P.CRDCN ---
History of Present Illness Consult date: 12/27/18 Chief complaint: Chest discomfort History of present illness: This is a pleasant 78-year-old gentleman who I follow in the office as an outpatient with a past medical history significant for coronary artery disease and prior angioplasty was performed out of the town long time ago, hypertension, dyslipidemia, and history of lung cancer, presented to the hospital complaining of shortness of breath and chest pain. He was in his usual state of health yesterday when he ate his dinner and after that he started experiencing shortness of breath followed by chest discomfort, in the mid of the chest, as a burning sensation, without any radiation to the arm or neck or shoulders and without any associated symptoms of sweating, dizziness, heart racing, or syncope. The EKG showed sinus rhythm with mild sinus tachycardia. No ischemic ST or T-wave abnormalities. The chest x-ray did not show any acute findings. The BNP came in to be around 800 only. The patient underwent computed tomography scan which came in to be at low probability for PE. The CBC him in to be unremarkable. The creatinine is elevated and a GFR is 36. The troponin came in to be slightly elevated. I am concerned about severe coronary artery disease giving his symptoms as well as abnormal cardiac enzymes as well as prior history of coronary artery disease and prior angioplasty and stenting. Giving his abnormal troponin, would consider medical treatment today and potentially plan to pursue with a heart catheterization tomorrow hoping that his kidney function will improve by tomorrow. Meanwhile we will continue IV hydration. Obtain an echocardiogram was Doppler. Also start the patient on small dose of metoprolol. I will continue the aspirin. Past Medical History Past Medical History: Asthma, Cancer, COPD, GERD/Reflux, Hyperlipidemia, Hypertension, Osteoarthritis (OA), Pneumonia, Respiratory Disorder, Sleep Ap naomi/CPAP/BIPAP Additional Past Medical History / Comment(s): DIVERTICULITIS, HX GERD WITH SURGERY., HX SMALL BOWEL OBSTRUCTION WITH SURGERY., BRONCHITIS, BACK PAIN., SHINGLES 1969'S, SLEEP APNEA (NO MACHINE)., PROSTATE CANCER 2006-HAD RADIATION [place], LUNG CANCER 2014 WITH CHEMO [place]., changes on recent chest CT History of Any Multi-Drug Resistant Organisms: None Reported Past Surgical History: Bowel Resection, Heart Catheterization With Stent, Orthopedic Surgery, Tonsillectomy Additional Past Surgical History / Comment(s): SOL EAR SX,SINUS SX X2, GERD/HIATAL HERNIA SURGERY, BOWEL RESECTON D/T RUPTURE WITH COLOSTOMY-SINCE REVERSED, SOL SHOULDER REPLACEMENT, SOL KNEE REPLACMENT., left cataract removed Past Anesthesia/Blood Transfusion Reactions: No Reported Reaction, Motion Sickness Date of Last Stent Placement:: 2005 Past Psychological History: Depression Smoking Status: Current some day smoker Past Alcohol Use History: Occasional Additional Past Alcohol Use History / Comment(s): SMOKES OCCASIONAL CIGAR. STARTED SMOKING AT AGE 14 ,SMOKED TILL AGE 43 2PPD. Past Drug Use History: None Reported - Past Family History Mother Family Medical History: Cancer Additional Family Medical History / Comment(s): MULTIPLE MEYLOMA Father Family Medical History: Cancer Additional Family Medical History / Comment(s): LUNG CANCER Sister(s) Family Medical History: Cancer Son(s) Family Medical History: Cancer Medications and Allergies Home Medications Medication Instructions Recorded Confirmed Type FLUoxetine HCL [PROzac] 20 mg PO DAILY 08/05/14 12/26/18 History Levothyroxine Sodium [Synthroid] 50 mcg PO DAILY 08/05/14 12/26/18 History Montelukast [Singulair] 10 mg PO HS 08/05/14 12/26/18 History Omeprazole [PriLOSEC] 40 mg PO DAILY 08/05/14 12/26/18 History Pravastatin Sodium [Pravachol] 40 mg PO HS 08/05/14 12/26/18 History Tamsulosin [Flomax] 0.4 mg PO DAILY 08/05/14 12/26/18 History Cetirizine HCl [Zyrtec] 10 mg PO DAILY 11/24/15 12/26/18 History Folic Acid 1 mg PO DAILY 02/12/18 12/26/18 History amLODIPine [Norvasc] 5 mg PO DAILY 02/12/18 12/26/18 History Fluticasone Nasal [place] [Flonase 2 spr EA NOSTRIL DAILY 12/26/18 12/26/18 History Nasal [place]] Fluticasone/Salmeterol [Advair 1 puff INHALATION RT-BID 12/26/18 12/26/18 Histor y 250-50 Diskus] Fluticasone/Salmeterol [Advair Hfa 2 puff INHALATION RT-BID PRN 12/26/1809/15 History 230-21 Mcg Inhaler] Allergies Allergy/AdvReac Type Severity Reaction Status Date / Time No Known Allergies Allergy Verified 12/26/18 21:07 Physical Exam Vitals: Vital Signs Temp Pulse Pulse Resp BP BP Pulse Ox 12/27/18 08:00 98.0 F 90 20 159/99 95 12/27/18 04:55 80 20 12/27/18 04:00 98.1 F 79 19 95 12/27/18 03:00 82 22 150/81 97 12/27/18 02:00 80 23 151/94 95 12/27/18 01:00 87 19 144/87 93 L 12/27/18 00:00 93 26 H 125/77 89 L 12/26/18 23:40 97 12/26/18 23:25 97 12/26/18 23:15 25 H 12/26/18 23:10 98 12/26/18 23:00 98 23 113/68 91 L 12/26/18 22:54 100 12/26/18 22:53 98.2 F 80 21 174/90 94 L 12/26/18 22:00 24 102/72 89 L 12/26/18 21:42 96 12/26/18 21:36 100 21 119/71 91 L 12/26/18 21:19 104 H 12/26/18 21:00 112 H 34 H 98/67 86 L 12/26/18 20:56 110 H 23 12/26/18 20:55 108 H 32 H 93/67 86 L 12/26/18 20:45 99.2 F 110 H 28 H 110/48 83 L Intake and Output 12/26/18 12/27/18 12/27/18 22:59 06:59 14:59 Intake Total 341.281 Output Total 350 Balance -8.719 Intake: Intake, IV Titration 341.281 Amount Heparin Sod,Pork in 0.45% 91.281 NaCl 25,000 unit In 0.45 % NaCl 1 250ml.bag @ 18 UNITS/KG/HR 17.554 mls/hr IV .[id number] [facility] Rx#: [id number] Sodium Chloride 0.9% 1, 250 000 ml @ 100 mls/hr IV . Q10H [facility] Rx#:[id number] Output: Urine 350 Other: Weight 97.522 kg 97.6 kg - Constitutional General appearance: no acute distress - Respiratory Respiratory: bilateral: CTA - Cardiovascular Rhythm: regular Heart sounds: normal: S1, S2 Results 12/27/18 03:27 12/26/18 20:52 Cardiac Enzymes 12/26/18 12/26/18 12/27/18 Range/Units 20:52 20:52 03:22 AST 14 L (17-59) U/L Troponin I <0.012 0.038 H* (0.000-0.034) ng/mL Coagulation 12/26/18 12/27/18 Range/Units 20:52 03:27 PT 10.1 11.0 (9.0-12.0) sec APTT 23.7 125.6 H* (22.0-30.0) sec Lipids 12/27/18 Range/Units 03:27 Triglycerides 50 (<150) mg/dL Cholesterol 125 (<200) mg/dL HDL Cholesterol 44 (40-60) mg/dL CBC 12/26/18 12/27/18 Range/Units 20:52 03:27 WBC 5.7 9.4 (3.8-10.6) k/uL RBC 4.67 4.56 (4.30-5.90) m/uL Hgb 13.4 13.4 (13.0-17.5) gm/dL Hct 41.4 41.0 (39.0-53.0) % Plt Count 231 211 (150-450) k/uL Comprehensive Metabolic Panel 12/26/18 Range/Units 20:52 Sodium 140 (137-145) mmol/L Potassium 3.6 (3.5-5.1) mmol/L Chloride 109 H (98-107) mmol/L Carbon Dioxide 21 L (22-30) mmol/L BUN 19 (9-20) mg/dL Creatinine 1.74 H (0.66-1.25) mg/dL Glucose 88 (74-99) mg/dL Calcium 9.6 (8.4-10.2) mg/dL AST 14 L (17-59) U/L ALT 17 L (21-72) U/L Alkaline Phosphatase 109 (38-126) U/L Total Protein 5.8 L (6.3-8.2) g/dL Albumin 3.3 L (3.5-5.0) g/dL Current Medications Generic Name Dose Route Start Last Admin Trade Name Freq PRN Reason Stop Dose Admin Albuterol Sulfate 2.5 mg 12/26/18 22:06 Ventolin Nebulized INHALATION RT-QID PRN Shortness Of Breath Albuterol/Ipratropium 3 ml 12/27/18 08:00 12/27/18 08:12 Duoneb 0.5 Mg-3 Mg/3 Ml Soln INHALATION Not Given RT-QID [facility] Aspirin 325 mg 12/27/18 09:00 Aspirin PO DAILY [facility] Famotidine 20 mg 12/27/18 09:00 Pepcid IV DAILY [facility] Heparin Sodium (Porcine) 0 unit 12/26/18 22:11 Heparin IV PER PROTOCOL PRN Low PTT Protocol Heparin Sodium/Sodium Chloride 250 mls @ 17.554 mls/hr 12/26/18 22:15 12/27/18 06:44 25,000 unit/ Sodium Chloride IV 15 units/kg/hr .[id number] [facility] 14.628 mls/hr Titration Protocol 18 UNITS/KG/HR Sodium Chloride 1,000 mls @ 75 mls/hr 12/26/18 22:15 12/26/18 23:24 Saline 0.9% IV 100 mls/hr .[id number] [facility] Administration Insulin Aspart 0 unit 12/27/18 07:30 12/27/18 06:39 Novolog SQ Not Given ACHS [facility] Protocol Methylprednisolone Sodium Succinate 60 mg 12/27/18 00:00 12/27/18 06:17 Solu-Medrol IV Not Given Q6HR [facility] Metoprolol Tartrate 12.5 mg 12/27/18 21:00 Lopressor PO BID [facility] Nitroglycerin 0.4 mg 12/26/18 22:06 Nitrostat SUBLINGUAL Q5M PRN Chest Pain Intake and Output 12/26/18 12/27/18 12/27/18 22:59 06:59 14:59 Intake Total 341.281 Output Total 350 Balance -8.719 Intake: Intake, IV Titration 341.281 Amount Heparin Sod,Pork in 0.45% 91.281 NaCl 25,000 unit In 0.45 % NaCl 1 250ml.bag @ 18 UNITS/KG/HR 17.554 mls/hr IV .[id number] [facility] Rx#: [id number] Sodium Chloride 0.9% 1, 250 000 ml @ 100 mls/hr IV . Q10H [facility] Rx#:[id number] Output: Urine 350 Other: Weight 97.522 kg 97.6 kg 12/27/18 03:27 12/26/18 20:52 Assessment and Plan Assessment: Assessment #1 acute non-ST patient myocardial infarction #2 history of CAD and prior stenting #3 history of lung cancer #4 acute on chronic renal failure Plan #1 continue the aspirin as well as a statin #2 add metoprolol to the current medical regimen #3 obtain an echocardiogram was Doppler #4 plan to pursue with a coronary angiogram tomorrow, if the creatinine is better #5 follow-up with the patient
--- NOTE | 2018-12-27 10:58 | P.HPIM ---
History of Present Illness This is a pleasant 78 years old male with past medical history of asthma/COPD, GERD, hyperlipidemia, hypertension, osteoarthritis, sleep apnea on CPAP/BiPAP, history of lung cancer in 2015 status post chemotherapy. History of coronary artery disease status post stenting. Patient presents because of worsening dyspnea of one week duration after he got his immunotherapy last week. Also yesterday complains from some chest pain central radiating across the chest to the left side, about 6/10 in severity that lasted one day. And felt like a burn. Patient has a history of COPD but he is not on home oxygen. Patient denies abdominal pain. No change in urine or bowel habits. No fever. Vitals are reviewed, he is saturating 95% on high flow oxygen at 9 L, mild to moderate tachypnea. CBC unremarkable, BMP showing creatinine was 1.7, compared to baseline of 1.2-1.3. Magnesium 1.3. Liver enzymes are mildly elevated. Chest x-ray: Worsening consolidation. EKG showing sinus tachycardia at 109, with no significant ST-T changes Patient was started on aspirin and heparin drip. Also on IV steroids and fluids of normal saline at 100 mL per hour V/Q scan: low probability for PE. On admission Patient has been evaluated by [facility] and they're planning to do cardiac cath Review of Systems CONSTITUTIONAL: No fever, no malaise, no fatigue. HEENT: No recent visual problems or hearing problems. Denied any sore throat. CARDIOVASCULAR: No orthopnea, PND, no palpitations, no syncope. PULMONARY: No shortness of breath, no cough, no hemoptysis. GASTROINTESTINAL: No diarrhea, no nausea, no vomiting, no abdominal pain. Normoactive bowel sounds. NEUROLOGICAL: No headaches, no weakness, no numbness. HEMATOLOGICAL: Denies any bleeding or petechiae. GENITOURINARY: Denies any burning micturition, frequency, or urgency. MUSCULOSKELETAL/RHEUMATOLOGICAL: Denies any joint pain, swelling, or any muscle pain. ENDOCRINE: Denies any polyuria or polydipsia. Past Medical History Past Medical History: Asthma, Cancer, COPD, GERD/Reflux, Hyperlipidemia, Hypertension, Osteoarthritis (OA), Pneumonia, Respiratory Disorder, Sleep Apnea/CPAP/BIPAP Additional Past Medical History / Comment(s): DIVERTICULITIS, HX GERD WITH SURGERY., HX SMALL BOWEL OBSTRUCTION WITH SURGERY., BRONCHITIS, BACK PAIN., SHINGLES , SLEEP APNEA (NO MACHINE)., PROSTATE CANCER 2006-HAD RADIATION [place], LUNG CANCER 2014 WITH CHEMO [place]., changes on recent chest CT History of Any Multi-Drug Resistant Organisms: None Reported Past Surgical History: Bowel Resection, Heart Catheterization With Stent, Orthopedic Surgery, Tonsillectomy Additional Past Surgical History / Comment(s): SOL EAR SX,SINUS SX X2, GERD/HIATAL HERNIA SURGERY, BOWEL RESECTON D/T RUPTURE WITH COLOSTOMY-SINCE REVERSED, SOL SHOULDER REPLACEMENT, SOL KNEE REPLACMENT., left cataract removed Past Anesthesia/Blood Transfusion Reactions: No Reported Reaction, Motion Sickness Date of Last Stent Placement:: 2005 Past Psychological History: Depression Smoking Status: Current some day smoker Past Alcohol Use History: Occasional Additional Past Alcohol Use History / Comment(s): SMOKES OCCASIONAL CIGAR. STARTED SMOKING AT AGE 14 ,SMOKED TILL AGE 43 2PPD. Past Drug Use History: None Reported - Past Family History Mother Family Medical History: Cancer Additional Family Medical History / Comment(s): MULTIPLE MEYLOMA Father Family Medical History: Cancer Additional Family Medical History / Comment(s): LUNG CANCER Sister(s) Family Medical History: Cancer Son(s) Family Medical History: Cancer Medications and Allergies Home Medications Medication Instructions Recorded Confirmed Type FLUoxetine HCL [PROzac] 20 mg PO DAILY 08/05/14 12/26/18 History Levothyroxine Sodium [Synthroid] 50 mcg PO DAILY 08/05/14 12/26/18 History Montelukast [Singulair] 10 mg PO HS 08/05/14 12/26/18 History Omeprazole [PriLOSEC] 40 mg PO DAILY 08/05/14 12/26/18 History Pravastatin Sodium [Pravachol] 40 mg PO HS 08/05/14 12/26/18 History Tamsulosin [Flomax] 0.4 mg PO DAILY 08/05/14 12/26/18 History Cetirizine HCl [Zyrtec] 10 mg PO DAILY 11/24/15 12/26/18 History Folic Acid 1 mg PO DAILY 02/12/18 12/26/18 History amLODIPine [Norvasc] 5 mg PO DAILY 02/12/18 12/26/18 History Fluticasone Nasal [place] [Flonase 2 spr EA NOSTRIL DAILY 12/26/18 12/26/18 History Nasal [place]] Fluticasone/Salmeterol [Advair 1 puff INHALATION RT-BID 12/26/18 12/26/18 History 250-50 Diskus] Fluticasone/Salmeterol [Advair Hfa 2 puff INHALATION RT-BID PRN 12/26/18 12/26/18 History 230-21 Mcg Inhaler] Allergies Allergy/AdvReac Type Severity Reaction Status Date / Time No Known Allergies Allergy Verified 12/26/18 21:07 Physical Exam Vitals: Vital Signs Temp Pulse Pulse Resp BP BP Pulse Ox 12/27/18 04:55 80 20 12/27/18 04:00 98.1 F 79 19 95 12/27/18 03:00 82 22 150/81 97 12/27/18 02:00 80 23 151/94 95 12/27/18 01:00 87 19 144/87 93 L 12/27/18 00:00 93 26 H 125/77 89 L 12/26/18 23:40 97 12/26/18 23:25 97 12/26/18 23:15 25 H 12/26/18 23:10 98 12/26/18 23:00 98 23 113/68 91 L 12/26/18 22:54 100 12/26/18 22:53 98.2 F 80 21 174/90 94 L 12/26/18 22:00 24 102/72 89 L 12/26/18 21:42 96 12/26/18 21:36 100 21 119/71 91 L 12/26/18 21:19 104 H 12/26/18 21:00 112 H 34 H 98/67 86 L 12/26/18 20:56 110 H 23 12/26/18 20:55 108 H 32 H 93/67 86 L 12/26/18 20:45 99.2 F 110 H 28 H 110/48 83 L Intake and Output 12/26/18 12/27/18 12/27/18 22:59 06:59 14:59 Intake Total 341.281 Output Total 350 Balance -8.719 Intake: Intake, IV Titration 341.281 Amount Heparin Sod,Pork in 0.45% 91.281 NaCl 25,000 unit In 0.45 % NaCl 1 250ml.bag @ 18 UNITS/KG/HR 17.554 mls/hr IV .[id number] Rx#: [id number] Sodium Chloride 0.9% 1, 250 000 ml @ 100 mls/hr IV . Q10H [facility] Rx#:[id number] Output: Urine 350 Other: Weight 97.522 kg 97.6 kg GENERAL: The patient is alert and oriented x3, not in any acute distress. Well developed, well nourished. HEENT: Pupils are round and equally reacting to light. EOMI. No scleral icterus. No conjunctival pallor. Normocephalic, atraumatic. No pharyngeal erythema. No thyromegaly. CARDIOVASCULAR: S1 and S2 present. No murmurs, rubs, or gallops. PULMONARY: Chest is clear to auscultation, no wheezing or crackles. ABDOMEN: Soft, nontender, nondistended, normoactive bowel sounds. No palpable organomegaly. MUSCULOSKELETAL: No joint swelling or deformity. EXTREMITIES: No cyanosis, clubbing, or pedal edema. NEUROLOGICAL: Gross neurological examination did not reveal any focal deficits. SKIN: No rashes. Results CBC & Chem 7: 12/27/18 03:27 12/26/18 20:52 Labs: Abnormal Lab Results - Last 24 Hours (Table) 12/26/18 12/26/18 12/26/18 Range/Units 20:52 20:52 20:52 Neutrophils # (1.3-7.7) k/uL Lymphocytes # 0.3 L (1.0-4.8) k/uL APTT (22.0-30.0) sec D-Dimer 2.14 H (<0.60) mg/L FEU Chloride 109 H (98-107) mmol/L Carbon Dioxide 21 L (22-30) mmol/L Creatinine 1.74 H (0.66-1.25) mg/dL Magnesium 1.3 L (1.6-2.3) mg/dL AST 14 L (17-59) U/L ALT 17 L (21-72) U/L Troponin I (0.000-0.034) ng/mL Total Protein 5.8 L (6.3-8.2) g/dL Albumin 3.3 L (3.5-5.0) g/dL 12/27/18 12/27/18 12/27/18 Range/Units 03:22 03:27 03:27 Neutrophils # 8.7 H (1.3-7.7) k/uL Lymphocytes # 0.2 L (1.0-4.8) k/uL APTT 125.6 H* (22.0-30.0) sec D-Dimer (<0.60) mg/L FEU Chloride (98-107) mmol/L Carbon Dioxide (22-30) mmol/L Creatinine (0.66-1.25) mg/dL Magnesium (1.6-2.3) mg/dL AST (17-59) U/L ALT (21-72) U/L Troponin I 0.038 H* (0.000-0.034) ng/mL Total Protein (6.3-8.2) g/dL Albumin (3.5-5.0) g/dL Thrombosis Risk Factor Assmnt - Choose All That Apply Each Factor Represents 1 point: Abnormal pulmonary function (COPD), Heart failure (<1month) Each Risk Factor Represents 3 Points: Age 75 years or older, History of DVT/PE Other congenital or acquired thrombophilia - If yes, enter type in comment: No Thrombosis Risk Factor Assessment Total Risk Factor Score: 8 Thrombosis Risk Factor Assessment Level: High Risk Assessment and Plan Assessment: Acute non-ST elevation myocardial infarction Acute COPD exacerbation Worsening lung opacities, left more than right. Suspicious for pneumonia. Patient with no fever or leukocytosis. However neutrophils is elevated Elevated d-dimer, with VQ scan is low probability for pulmonary embolism Acute kidney injury on chronic kidney disease Chronic kidney disease stage III History of lung cancer status post chemotherapy History of coronary artery disease, status post stenting History of GERD Hypertension Hyperlipidemia Osteoarthritis History of sleep apnea on CPAP/BiPAP Plan: This is a pleasant 78 years old male who presents with worsening lung opacities with COPD and non-STEMI, possible pneumonia, patient was started on heparin drip on admission, continue with antibiotic, steroid treatment, breathing treatment and oxygen. Cardiology and pulmonary consult. VQ scan. Continue with IV fluids. Continue with aspirin. Start antibiotic. Sent for sputum and blood culture Labs and medication were reviewed.. Continue same treatment. Continue with symptomatic treatment. Resume home medication. Monitor lytes and vitals. DVT and GI prophylaxis. Further recommendations of the clinical course of the patient DVT prophylaxis: heparin GI Prophylaxis: Pepcid Prognosis is guarded
[2018-12-27 11:01] VITALS: BMI 29.2
[2018-12-27 11:26] LABS: Glucose,Whole Blood 197 mg/dL (75-99)
[2018-12-27 12:13] LABS: Calcium 9.9 mg/dL (8.4-10.2); Magnesium 1.9 mg/dL (1.6-2.3)
[2018-12-27] MEDS: SODIUM CHLORIDE 0.9% 1,000 ML IV SCH ×2 (12:15→20:44)
[2018-12-27] MEDS: ASPIRIN 325 MG TAB PO SCH (12:15)
[2018-12-27] MEDS: FAMOTIDINE 20 MG/2 ML VIAL IV SCH (12:16)
--- NOTE | 2018-12-27 15:55 | ECHOF ---
Referral Reason:nstemi MEASUREMENTS -------- HEIGHT: 182.9 cm WEIGHT: 97.5 kg BP: 159/99 IVSd: 1.4 cm (0.6 - 1.1) LVIDd: 4.3 cm (3.9 - 5.3) LVPWd: 1.3 cm (0.6 - 1.1) IVSs: 1.2 cm LVIDs: 4.7 cm LVPWs: 1.3 cm LA Diam: 3.9 cm (2.7 - 3.8) RVIDd: 2.9 cm (< 3.3) LAESV Index (A-L): 22.72 ml/m Ao Diam: 3.6 cm (2.0 - 3.7) AV Cusp: 1.5 cm (1.5 - 2.6) EPSS: 1.9 cm MV E Carl: 0.90 m/s MV DecT: 221 ms MV A Carl: 1.40 m/s MV E/A Ratio: 0.65 AV maxP.74 mmHg AV meanP.75 mmHg RAP: 5.00 mmHg RVSP: 40.44 mmHg MV EF SLOPE: 12.04 mm/s (70 - 150) MV EXCURSION: 6.18 mm (> 18.000) FINDINGS -------- Sinus rhythm. This was a technically adequate study. The left ventricular size is normal. There is moderate concentric left ventricular hypertrophy. O verall left ventricular systolic function is normal with, an EF between 60 - 65 %. The right ventricle is normal in size. Normal LA size by volume 22+/-6 ml/m2. The right atrium is normal in size. There is moderate aortic valve sclerosis. There is moderate aortic stenosis present. Peak/mean gr adient across the Aortic Valve is 34.74mmHg / 23.75mmHg. The mitral valve leaflets are mildly thickened. Mild mitral annular calcification present. Mild tricuspid regurgitation present. There is mild pulmonary hypertension. The right ventricular systolic pressure, as measured by Doppler, is 40.44mmHg. Trace/mild (physiologic) pulmonic regurgitation. The aortic root size is normal. Normal inferior vena cava with normal inspiratory collapse consistent with estimated right atrial pre ssure of 5 mmHg. The inferior vena cava is mildly dilated. There is no pericardial effusion. CONCLUSIONS -------- 1. Sinus rhythm. 2. This was a technically adequate study. 3. The left ventricular size is normal. 4. There is moderate concentric left ventricular hypertrophy. 5. Overall left ventricular systolic function is normal with, an EF between 60 - 65 %. 6. The right ventricle is normal in size. 7. Normal LA size by volume 22+/-6 ml/m2. 8. The right atrium is normal in size. 9. There is moderate aortic valve sclerosis. 10. There is moderate aortic stenosis present. 11. Peak/mean gradient across the Aortic Valve is 34.74mmHg / 23.75mmHg. 12. The mitral valve leaflets are mildly thickened. 13. Mild mitral annular calcification present. 14. Mild tricuspid regurgitation present. 15. There is mild pulmonary hypertension. 16. The right ventricular systolic pressure, as measured by Doppler, is 40.44mmHg. 17. Trace/mild (physiologic) pulmonic regurgitation. 18. The aortic root size is normal. 19. Normal inferior vena cava with normal inspiratory collapse consistent with estimated right atrial pressure of 5 mmHg. 20. The inferior vena cava is mildly dilated. 21. There is no pericardial effusion. PIN FEATHER MACHINE OPERATOR: Verona Burr RDCS
[2018-12-27 16:33] LABS: Glucose,Whole Blood 134 mg/dL (75-99)
[2018-12-27] MEDS: HEPARIN SOD,PORK IN 0.45% NACL 25,000 UNIT in 0.45% NACL 1 250ML.BAG IV SCH (16:57)
--- NOTE | 2018-12-27 19:14 | P.CNPUL ---
History of Present Illness Consult date: 12/27/18 Reason for consult: dyspnea, hypoxemia History of present illness: This is a 6-year-old male patient with known history of stage IV adenocarcinoma of the lung that was diagnosed initially in 2015. Back then the patient presented with a malignant plural effusion. The patient was given the diagnosis of stage IV adenocarcinoma of the lung. A PET scan that was done at that time showed a suspicious uptake in the right upper lobe with a 2.2 cm paraspinal mass. The MRI of the brain was negative. The patient received a combination of carboplatinum, Alimta and Avastin. That she was started on December 2015 and the patient completed 4 cycles of chemotherapy on 03/02/2016. Following that the patient was started on Alimta maintenance and this was started on 05/04/2016. Since then, the patient had multiple CAT scans demonstrating stability till the most recent CAT scan of the chest that was done on 08/24/2018 that showed multiple opacities in the left lower lobe with some increased infiltration consistent with lymphangitic spread. At that point, the possibility of disease progression was considered and the patient underwent a bronchoscopy and transbronchial biopsies of the left lower lobe confirmed the diagnosis of adenocarcinoma of the lung. At that point, the patient was started on immunotherapy and the patient has already received a total of 4 sessions of Opdivo. The patient is known to have COPD, hypertension, coronary artery disease and obstructive sleep apnea. He is also known to have history of prostate cancer and he has received radiation therapy to the prostate back in 2009. The patient has been having ongoing difficulties in breathing. He has required systemic steroids on multiple occasions and all of this was offered to him through Dr. Rutherford and Dr. Barrera on outpatient basis. The patient came into the emergency department yesterday because of 1 week worsening of shortness of breath. He was in our pulmonary office approximately 2 weeks ago and was doing relatively well. He has become progressively more hypoxic and he came in with increased dyspnea and some chest pain. The troponin was minimally elevated and the troponin level peaked at 0.038. The EKG showed sinus tachycardia otherwise it was a normal EKG. The echocardiogram showed ejection fraction of 60-65% with a moderate degree of aortic stenosis with a valve gradient of 34 mmHg. The chest x-ray showed bilateral lung opacities that has been increased compared to the previous chest x-ray. 12/06/2018. There is worsening of the pulmonary infiltrates patient left perihilar area and the infiltrates are left more than right. There is trace pleural effusion. VQ scan was of a low probability. Patient was placed on IV Rocephin. The patient was placed on IV heparin. The patient was started on IV Solu-Medrol. Currently is on 8 L of oxygen nasal cannula. The patient is going to undergo a cardiac catheterization upon the request of cardiology tomorrow. He is able to speak in full sentences. No pleurisy. No hemoptysis. Review of Systems All systems: negative Constitutional: Reports lethargy, Reports poor appetite, Reports weakness Ears: deny: decreased hearing, ear discharge, earache, tinnitus Ears, nose, mouth and throat: Denies headache, Denies sore throat Breasts: absent: as per HPI, gynecomastia Cardiovascular: Reports chest pain, Reports decreased exercise tolerance, Reports dyspnea on exertion, Reports shortness of breath Respiratory: Reports dyspnea, Reports wheezing (Nontender no) Gastrointestinal: Reports as per HPI Genitourinary: Reports as per HPI Musculoskeletal: Reports as per HPI (The patient is arthritis involving the shoulders and the patient has had bilateral shoulder replacement and the patient has undergone various arthroscopic knee surgeries.) Musculoskeletal: absent: ankle pain, ankle stiffness, ankle swelling, as per HPI, elbow pain, elbow stiffness, elbow swelling, foot pain, foot stiffness, jacy t swelling, hand pain, hand stiffness, hand swelling, hip pain, hip stiffness, hip swelling, knee pain, knee stiffness, knee swelling, shoulder pain, shoulder stiffness, shoulder swelling, wrist pain, wrist stiffness, wrist swelling Integumentary: Reports as per HPI Neurological: Reports as per HPI Psychiatric: Reports as per HPI Endocrine: Reports as per HPI Hematologic/Lymphatic: Reports as per HPI Allergic/Immunologic: Reports as per HPI Past Medical History Past Medical History: Asthma, Cancer, COPD, GERD/Reflux, Hyperlipidemia, Hypertension, Osteoarthritis (OA), Pneumonia, Respiratory Disorder, Sleep Apnea/CPAP/BIPAP Additional Past Medical History / Comment(s): Stage IV metastatic cancer of the lung/adenocarcinoma, history of malignant pleural effusion, COPD, history of prostate cancer treated by radiation therapy back in 2009, hypertension, COPD, obstructive sleep apnea, coronary artery disease, severe degenerative arthritis, acid reflux, history of small bowel obstruction requiring surgery, chronic back pain, remote history of shingles back in the 70s, history of diverticulosis, hyperlipidemia, hypertension History of Any Multi-Drug Resistant Organisms: None Reported Past Surgical History: Bowel Resection, Heart Catheterization With Stent, Orthopedic Surgery, Tonsillectomy Additional Past Surgical History / Comment(s): SOL EAR SX,SINUS SX X2, GERD/HIATAL HERNIA SURGERY, BOWEL RESECTON D/T RUPTURE WITH COLOSTOMY-SINCE REVERSED, SOL SHOULDER REPLACEMENT, SOL KNEE REPLACMENT., left cataract removed Past Anesthesia/Blood Transfusion Reactions: No Reported Reaction, Motion Sickness Date of Last Stent Placement:: 2005 Past Psychological History: Depression Smoking Status: Current some day smoker Past Alcohol Use History: Occasional Additional Past Alcohol Use History / Comment(s): SMOKES OCCASIONAL CIGAR. STARTED SMOKING AT AGE 14 ,SMOKED TILL AGE 43 2PPD. Past Drug Use History: None Reported - Past Family History Mother Family Medical History: Cancer Additional Family Medical History / Comment(s): MULTIPLE MEYLOMA Father Family Medical History: Cancer Additional Family Medical History / Comment(s): LUNG CANCER Sister(s) Family Medical History: Cancer Son(s) Family Medical History: Cancer Medications and Allergies Home Medications Medication Instructions Recorded Confirmed Type FLUoxetine HCL [PROzac] 20 mg PO DAILY 08/05/14 12/26/18 History Levothyroxine Sodium [Synthroid] 50 mcg PO DAILY 08/05/14 12/26/18 History Montelukast [Singulair] 10 mg PO HS 08/05/14 12/26/18 History Omeprazole [PriLOSEC] 40 mg PO DAILY 08/05/14 12/26/18 History Pravastatin Sodium [Pravachol] 40 mg PO HS 08/05/14 12/26/18 History Tamsulosin [Flomax] 0.4 mg PO DAILY 08/05/14 12/26/18 History Cetirizine HCl [Zyrtec] 10 mg PO DAILY 11/24/15 12/26/18 History Folic Acid 1 mg PO DAILY 02/12/18 12/26/18 History amLODIPine [Norvasc] 5 mg PO DAILY 02/12/18 12/26/18 History Fluticasone Nasal [place] [Flonase 2 spr EA NOSTRIL DAILY 12/26/18 12/26/18 History Nasal [place]] Fluticasone/Salmeterol [Advair 1 puff INHALATION RT-BID 12/26/18 12/26/18 History 250-50 Diskus] Fluticasone/Salmeterol [Advair Hfa 2 puff INHALATION RT-BID PRN 12/26/18 12/26/18 History 230-21 Mcg Inhaler] Allergies Allergy/AdvReac Type Severity Reaction Status Date / Time No Known Allergies Allergy Verified 12/26/18 21:07 Physical Exam Vitals: Vital Signs Temp Pulse Pulse Resp BP BP Pulse Ox 12/27/18 16:00 97.6 F 82 16 116/67 94 L 12/27/18 15:53 94 18 12/27/18 15:42 97 18 98 12/27/18 12:00 97.7 F 76 18 159/90 94 L 12/27/18 08:00 98.0 F 90 20 159/99 95 12/27/18 04:55 80 20 12/27/18 04:00 98.1 F 79 19 95 12/27/18 03:00 82 22 150/81 97 12/27/18 02:00 80 23 151/94 95 12/27/18 01:00 87 19 144/87 93 L 12/27/18 00:00 93 26 H 125/77 89 L 12/26/18 23:40 97 12/26/18 23:25 97 12/26/18 23:15 25 H 12/26/18 23:10 98 12/26/18 23:00 98 23 113/68 91 L 12/26/18 22:54 100 12/26/18 22:53 98.2 F 80 21 174/90 94 L 12/26/18 22:00 24 102/72 89 L 12/26/18 21:42 96 12/26/18 21:36 100 21 119/71 91 L 12/26/18 21:19 104 H 12/26/18 21:00 112 H 34 H 98/67 86 L 12/26/18 20:56 110 H 23 12/26/18 20:55 108 H 32 H 93/67 86 L 12/26/18 20:45 99.2 F 110 H 28 H 110/48 83 L Intake and Output 12/27/18 12/27/18 12/27/18 06:59 14:59 22:59 Intake Total 341.281 360 389.449 Output Total 350 350 Balance -8.719 10 389.449 Intake: Intake, IV Titration 341.281 149.449 Amount Heparin Sod,Pork in 0.45% 91.281 149.449 NaCl 25,000 unit In 0.45 % NaCl 1 250ml.bag @ 18 UNITS/KG/HR 17.554 mls/hr IV .[id number] [facility] Rx#: [id number] Sodium Chloride 0.9% 1, 250 000 ml @ 75 mls/hr IV . [id number] [facility] Rx#:[id number] Oral 360 240 Output: Urine 350 350 Other: Weight 97.6 kg 97.6 kg GENERAL: The patient is alert and oriented x3, not in any acute distress. Well developed, well nourished. HEENT: Pupils are round and equally reacting to light. EOMI. No scleral icterus. No conjunctival pallor. Normocephalic, atraumatic. No pharyngeal erythema. No thyromegaly. CARDIOVASCULAR: S1 and S2 present. No murmurs, rubs, or gallops. PULMONARY: Chest is clear to auscultation, some limited crackles in the mid lung areas left more than right. Few scattered expiratory wheezes. ABDOMEN: Soft, nontender, nondistended, normoactive bowel sounds. No palpable organomegaly. MUSCULOSKELETAL: No joint swelling or deformity. EXTREMITIES: No cyanosis, clubbing, or pedal edema. NEUROLOGICAL: Gross neurological examination did not reveal any focal deficits. SKIN: No rashes.Examination of the skin revealed no evidence of significant rashes, suspicious appearing nevi or other concerning lesions. Results - Laboratory Findings CBC and BMP: 12/27/18 03:27 12/27/18 11:26 PT/INR, D-dimer PT 11.0 sec (9.0-12.0) 12/27/18 03:27 INR 1.0 (<1.2) 12/27/18 03:27 D-Dimer 2.14 mg/L FEU (<0.60) H 12/26/18 20:52 Abnormal lab findings: Abnormal Labs 12/26/18 12/26/18 12/26/18 20:52 20:52 20:52 Neutrophils # Lymphocytes # 0.3 L APTT D-Dimer 2.14 H Chloride 109 H Carbon Dioxide 21 L BUN Creatinine 1.74 H Glucose POC Glucose (mg/dL) Magnesium 1.3 L AST 14 L ALT 17 L Troponin I Total Protein 5.8 L Albumin 3.3 L 12/27/18 12/27/18 12/27/18 03:22 03:27 03:27 Neutrophils # 8.7 H Lymphocytes # 0.2 L APTT 125.6 H* D-Dimer Chloride Carbon Dioxide BUN Creatinine Glucose POC Glucose (mg/dL) Magnesium AST ALT Troponin I 0.038 H* Total Protein Albumin 12/27/18 12/27/18 12/27/18 11:24 11:26 11:26 Neutrophils # Lymphocytes # APTT 59.7 H D-Dimer Chloride 108 H Carbon Dioxide 19 L BUN 21 H Creatinine Glucose 206 H POC Glucose (mg/dL) 197 H Magnesium AST ALT Troponin I Total Protein Albumin 12/27/18 16:32 Neutrophils # Lymphocytes # APTT D-Dimer Chloride Carbon Dioxide BUN Creatinine Glucose POC Glucose (mg/dL) 134 H Magnesium AST ALT Troponin I Total Protein Albumin - Diagnostic Findings Chest x-ray: image reviewed Assessment and Plan Plan: 1 acute hypoxic respiratory failure with development of bilateral pulmonary infiltrates left more than right. Consider pneumonia/infectious pneumonia. Consider interstitial lung disease related to immunotherapy. Cancer progression is felt to be less likely knowing that there has been significant progression the pulmonary infiltrates over the past 4 weeks. Heart failure is also felt to be less likely. 2 coronary artery disease with a component of non-STEMI and the patient is currently on IV heparin chest pain-free and the patient is going to undergo a cardiac catheterization tomorrow 3 stage IV adenocarcinoma of the lung with previous history of malignant pleural effusion 4 COPD 5 remote history of present cancer status post radiation therapy 6 no history of coronary artery disease with previous coronary intervention and stenting 7 hypothyroidism 8 hypertension 9 hyperlipidemia 10 obstructive sleep apnea 11 acute kidney injury improving and the patient's creatinine is down to 1.2 ELFEGO I'm highly suspicious that the patient has developed some ILD related to immunotherapy. Continued IV Solu Medrol for now. Continue bronchodilators. Empiric antibiotic coverage with Rocephin. Repeat chest x-ray on a daily basis to monitor the pulmonary infiltrates. Monitor the oxygenation and wean down the FiO2 to maintain a saturation above 90%. Continued IV heparin. Cardiac catheterization the morning. Oncology consultation. We'll continue to follow.
[2018-12-27] MEDS ORDERED: MELATONIN 5 MG TABLET PO PRN (20:24)
[2018-12-27 20:33] LABS: Glucose,Whole Blood 191 mg/dL (75-99)
[2018-12-27] MEDS: PRAVASTATIN SODIUM 40 MG TAB PO SCH (20:43)
[2018-12-27] MEDS: METOPROLOL TARTRATE 12.5 MG TAB PO SCH (20:43)
[2018-12-27] MEDS: DOXYCYCLINE 100 MG in SODIUM CHLORIDE 0.9% 100 ML IVPB SCH (23:31)
[2018-12-28] MEDS: HEPARIN SOD,PORK IN 0.45% NACL 25,000 UNIT in 0.45% NACL 1 250ML.BAG IV SCH ×2 (01:09→18:36)
[2018-12-28] MEDS: METOPROLOL TARTRATE 12.5 MG TAB PO SCH ×2 (04:13→20:56)
[2018-12-28] MEDS: methylPREDNISolone SOD SUCCI 125 MG/2 ML VIAL IV SCH ×4 (04:13→23:03)
[2018-12-28] MEDS: FAMOTIDINE 20 MG/2 ML VIAL IV SCH (04:14)
[2018-12-28] MEDS: ASPIRIN 325 MG TAB PO SCH (04:14)
[2018-12-28] MEDS: SODIUM CHLORIDE 0.9% 1,000 ML IV SCH ×2 (04:15→20:58)
[2018-12-28 05:32] LABS: Glucose,Whole Blood 150 mg/dL (75-99)
[2018-12-28] MEDS: INSULIN ASPART (NovoLOG) 100 UNIT/ML VIAL SQ SCH ×4 (05:34→20:56)
[2018-12-28 06:48] LABS: Basophils % (A) 0 %; Eosinophils % (A) 0 %; HCT 39.4 % (39.0-53.0); HGB 12.5 gm/dL (13.0-17.5); Lymphocytes # (A) 0.5 k/uL (1.0-4.8); Lymphocytes % (A) 5 %; MCH 28.8 pg (25.0-35.0); MCHC 31.7 g/dL (31.0-37.0); MCV 90.9 fL (80.0-100.0); Mean Platelet Volume 7.3; Monocytes # (A) 0.4 k/uL (0-1.0); Monocytes % (A) 4 %; Neutrophils # (A) 9.1 k/uL (1.3-7.7); Neutrophils % (A) 89 %; Platelet Count 244 k/uL (150-450); RBC 4.34 m/uL (4.30-5.90); RDW 14.8 % (11.5-15.5); WBC 10.1 k/uL (3.8-10.6)
[2018-12-28 06:59] LABS: INR 0.9 (<1.2); Partial Thromboplastin Time 29.2 sec (22.0-30.0); Prothrombin Time 9.8 sec (9.0-12.0)
[2018-12-28 07:01] LABS: Calcium 9.7 mg/dL (8.4-10.2); Magnesium 1.9 mg/dL (1.6-2.3); Potassium 4.8 mmol/L (3.5-5.1)
[2018-12-28] MEDS ORDERED: LIDOCAINE 1% INJ 10MG/ML (20 ML MDV) ONE (08:51)
[2018-12-28] MEDS ORDERED: VERAPAMIL 2.5 MG/ML 2 ML AMP ONE ×2 (09:00→09:28)
[2018-12-28] MEDS ORDERED: IV FLUID CONTINUATION 1,000 ML IV ONE (09:00)
[2018-12-28] MEDS: IPRATROPIUM-ALBUTEROL 3 ML NEB INHALATION SCH ×4 (09:14→19:09)
[2018-12-28] MEDS ORDERED: HEPARIN SODIUM 1,000 UN/ML (10ML VL) ONE (09:19)
[2018-12-28] MEDS ORDERED: LIDOCAINE 1% INJ 10MG/ML (20 ML MDV) SQ ONE (09:26)
[2018-12-28] MEDS ORDERED: MIDAZOLAM (PF) 2 MG/2 ML VIAL IV ONE (09:26)
[2018-12-28] MEDS: VERAPAMIL SYRINGE (5 MG/10 ML) INTRAARTER ONE ×2 (09:27→09:43)
[2018-12-28] MEDS ORDERED: IOPAMIDOL-370 125ML BTL INJ ONE (09:43)
[2018-12-28] MEDS ORDERED: RX INFO: IV CONTRAST WAS GIVEN 1 EACH MISC MISCELLANE PRN (09:49)
[2018-12-28] MEDS ORDERED: SODIUM CHLORIDE 0.9% 1,000 ML IV SCH (10:00)
[2018-12-28 11:23] LABS: Glucose,Whole Blood 163 mg/dL (75-99)
--- NOTE | 2018-12-28 11:27 | P.PN ---
Subjective This is a pleasant 78 years old male with past medical history of asthma/COPD, GERD, hyperlipidemia, hypertension, osteoarthritis, sleep apnea on CPAP/BiPAP, history of lung cancer in 2015 status post chemotherapy. History of coronary artery disease status post stenting. Patient presents because of worsening dyspnea of one week duration after he got his immunotherapy last week. Also yesterday complains from some chest pain central radiating across the chest to the left side, about 6/10 in severity that lasted one day. And felt like a bur n. Patient has a history of COPD but he is not on home oxygen. Patient denies abdominal pain. No change in urine or bowel habits. No fever. Vitals are reviewed, he is saturating 95% on high flow oxygen at 9 L, mild to moderate tachypnea. CBC unremarkable, BMP showing creatinine was 1.7, compared to baseline of 1.2-1.3. Magnesium 1.3. Liver enzymes are mildly elevated. Chest x-ray: Worsening consolidation. EKG showing sinus tachycardia at 109, with no significant ST-T changes Patient was started on aspirin and heparin drip. Also on IV steroids and fluids of normal saline at 100 mL per hour V/Q scan: low probability for PE. 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 He got some fluid for his dehydration state and to correct his creatinine. His creatinine looks better today, down from 1.23 to 1.14. His potassium and sodium are within normal limits. And his sugar is controlled. Magnesium 1.9. CBC is unremarkable, hemoglobin 12.5. Patient is going for cardiac cath this morning. Oncology team has been consulted for possible metastatic disease to the lung. Pulmonary team input is appreciated. Objective - Vital Signs Vital signs: Vital Signs Temp 97.7 F 12/28/18 10:00 Pulse 72 12/28/18 10:55 Resp 20 12/28/18 10:00 BP 145/78 12/28/18 10:00 Pulse Ox 90 L 12/28/18 10:45 Intake & Output 12/27/18 12/28/18 12/28/18 18:59 06:59 18:59 Intake Total 749.449 640 100 Output Total 350 1025 Balance 399.449 -385 100 Weight 97.6 kg 99.4 kg Intake: IV 100 Intake, IV Titration 149.449 400 Amount Doxycycline 100 mg In 100 Sodium Chloride 0.9% 100 ml @ 100 mls/hr IVPB Q12H [facility] Rx#:[id number] Heparin Sod,Pork in 0.45% 149.449 NaCl 25,000 unit In 0.45 % NaCl 1 250ml.bag @ 18 UNITS/KG/HR 17.554 mls/hr IV .[id number] [facility] Rx#: [id number] Sodium Chloride 0.9% 1, 300 000 ml @ 75 mls/hr IV . [id number] [facility] Rx#:[id number] Oral 600 240 Output: Urine 350 1025 Other: # Voids 1 - Exam GENERAL: The patient is alert and oriented x3, not in any acute distress. Well developed, well nourished. HEENT: Pupils are round and equally reacting to light. EOMI. No scleral icterus. No conjunctival pallor. Normocephalic, atraumatic. No pharyngeal erythema. No thyromegaly. CARDIOVASCULAR: S1 and S2 present. No murmurs, rubs, or gallops. PULMONARY: Chest is clear to auscultation, no wheezing or crackles. ABDOMEN: Soft, nontender, nondistended, normoactive bowel sounds. No palpable organomegaly. MUSCULOSKELETAL: No joint swelling or deformity. EXTREMITIES: No cyanosis, clubbing, or pedal edema. NEUROLOGICAL: Gross neurological examination did not reveal any focal deficits. SKIN: No rashes. - Labs CBC & Chem 7: 12/28/18 06:15 12/28/18 06:15 Labs: Abnormal Lab Results - Last 24 Hours (Table) 12/27/18 12/27/18 12/27/18 Range/Units 11:24 11:26 11:26 Hgb (13.0-17.5) gm/dL Neutrophils # (1.3-7.7) k/uL Lymphocytes # (1.0-4.8) k/uL APTT 59.7 H (22.0-30.0) sec Chloride 108 H (98-107) mmol/L Carbon Dioxide 19 L (22-30) mmol/L BUN 21 H (9-20) mg/dL Glucose 206 H (74-99) mg/dL POC Glucose (mg/dL) 197 H (75-99) mg/dL 12/27/18 12/27/18 12/28/18 Range/Units 16:32 20:31 05:30 Hgb (13.0-17.5) gm/dL Neutrophils # (1.3-7.7) k/uL Lymphocytes # (1.0-4.8) k/uL APTT (22.0-30.0) sec Chloride (98-107) mmol/L Carbon Dioxide (22-30) mmol/L BUN (9-20) mg/dL Glucose (74-99) mg/dL POC Glucose (mg/dL) 134 H 191 H 150 H (75-99) mg/dL 12/28/18 12/28/18 12/28/18 Range/Units 06:15 06:15 11:12 Hgb 12.5 L (13.0-17.5) gm/dL Neutrophils # 9.1 H (1.3-7.7) k/uL Lymphocytes # 0.5 L (1.0-4.8) k/uL APTT (22.0-30.0) sec Chloride 111 H (98-107) mmol/L Carbon Dioxide 19 L (22-30) mmol/L BUN 22 H (9-20) mg/dL Glucose 147 H (74-99) mg/dL POC Glucose (mg/dL) 163 H (75-99) mg/dL Assessment and Plan Assessment: Acute non-ST elevation myocardial infarction Acute COPD exacerbation Worsening lung opacities, left more than right. Suspicious for pneumonia. Patient with no fever or leukocytosis. However neutrophils is elevated Elevated d-dimer, with VQ scan is low probability for pulmonary embolism Acute kidney injury on chronic kidney disease Chronic kidney disease stage III History of lung cancer status post chemotherapy History of coronary artery disease, status post stenting History of GERD Hypertension Hyperlipidemia Osteoarthritis History of sleep apnea on CPAP/BiPAP Plan: This is a pleasant 78 years old male who presents with worsening lung opacities with COPD and non-STEMI, possible pneumonia, patient was started on heparin drip on admission, continue with antibiotic, steroid treatment, breathing treatment and oxygen. Cardiology and pulmonary consult. VQ scan. Continue with IV fluids. Continue with aspirin. Start antibiotic. Sent for sputum and blood culture Labs and medication were reviewed.. Continue same treatment. Continue with symptomatic treatment. Resume home medication. Monitor lytes and vitals. DVT and GI prophylaxis. Further recommendations of the clinical course of the patient DVT prophylaxis: heparin GI Prophylaxis: Pepcid Prognosis is guarded
[2018-12-28] MEDS: DOXYCYCLINE 100 MG in SODIUM CHLORIDE 0.9% 100 ML IVPB SCH ×2 (11:44→21:52)
--- NOTE | 2018-12-28 12:05 | CC ---
CARDIAC CATHETERIZATION REPORT DATE OF SERVICE: 12/28/2018 PERFORMING PHYSICIAN: Dexter Kong MD, Newspaper Photo Editor. PROCEDURE PERFORMED: Selective right and left coronary angiogram. INDICATION: This is a pleasant 78-year-old gentleman who presented to the hospital with chest discomfort and ruled in for acute non ST elevation myocardial infarction. Because of that, a coronary angiogram was advised. APPROACH: Right radial artery. COMPLICATION: None. LEVEL OF SEDATION: Moderate with sedation length of 19 minutes. PROCEDURE DESCRIPTION: After obtaining an informed consent, the patient was brought to the cardiac lab rep. The right radial artery was cannulated using micropuncture technique, the micropuncture wire passed easily, then I placed a 6-[place]gas[place] sheath 11 cm in the right radial artery. I gave the patient after that 10,000 units of heparin IV heparin and 2 mg of verapamil IA. Selective right and left coronary angiogram performed using JR4 and JL3.5 catheters. I did not performed left heart catheterization on the patient. The procedure was completed without any complication. SELECTIVE CORONARY ANGIOGRAM: 1. The right coronary artery is a large caliber vessel. It is a dominant vessel. The proximal RCA appeared to have mild disease only. The mid RCA has a lesion, appeared to be in the range of 60%.-70%. The RCA distally appeared to have mild disease only. It bifurcates into PDA and PLV branches, both appeared to be angiographically normal. 2. The left main is angiographically normal. It is calcified. It bifurcates into the left circumflex and left anterior descending artery. 3. The left circumflex is a large caliber vessel. It is a nondominant vessel. The proximal circumflex has mild disease only and gives rise into a medium caliber OM, which appeared to have mild disease only. The mid circumflex appeared to have mild disease only and gives rise into second OM, which appeared to be angiographically normal and the circumflex continued after that as a small-caliber vessel in the AV groove. 4. The LAD, the proximal LAD is stented with mild in-stent restenosis. The mid LAD has mild disease only and gives rise into a diagonal branch which is a medium caliber vessel with lesion appeared to be in the range of 60% to 70%. The LAD distally appeared to be angiographically normal. CONCLUSION: Intermediate to severe disease involving the right coronary artery and first diagonal branch of the LAD. POSTPROCEDURE MANAGEMENT: 1. I did recommend maximized medical treatment at this point of time. 2. If the patient continues to have chest discomfort, he will benefit probably from PCI of the diagonal branch and FFR with possible PCI of the right coronary artery. ALMA ROSA / SANDEE: [id number] /
--- NOTE | 2018-12-28 15:26 | P.CONS ---
History of Present Illness - Reason for Consult Consult date: 12/28/18 Metastatic non-small cell lung cancer Requesting physician: Reyes Rasheed - Chief Complaint Difficulty in breathing - History of Present Illness Mr. Lu is a very pleasant 78-year-old male patient of Dr. Rutherford who presented with progressive exertional dyspnea times a few months, chest x- ray was done followed by CT chest 10/06/2015. This revealed worsening left pleural effusion compared to a previous CT done in May 2014, there were stable right upper lobe lung nodules and slightly enlarged mediastinal lymph nodes. On 12/03/2015 he had diagnostic thoracentesis, cytology was positive for adenocarcinoma. Staging PET scan showed right upper lobe mass and left pleural effusion otherwise negative. MRI of the brain was negative. Molecular p rofiling could not be performed on pleural fluid. Carbo, Alimta and Avastin was started on 12/30/2015. He completed 4 cycles in February 2016. Treatment follow-up CT 04/18/2016 showed stable disease. He continued on maintenance Alimta in April 2016 he continued on the same with disease follow-up CTs showing stable disease. Maintenance Alimta was stopped October 2016 due to progressive fatigue. Patient did well until July 2018, he had symptoms of a persistent, progressive cough. Bronchoscopy 10/23/2018 showed a poorly differentiated adenocarcinoma, next generation sequencing was negative for targetable mutation. Patient started nivolumab 11/14/2018. He is status post 3 cycles. Patient has had episodes of shortness of breath similar to this with each cycle. Patient states progressive difficulty in breathing, cough, he is requiring oxygen to be comfortable, he has no activity tolerance. Patient denied fever, chills, nausea, vomiting, abdominal pain or cramping, diarrhea, constipation, swelling or pain. Patient had an echo that showed ejection fraction of 60-65%, VQ scan had a low probability for PE. CBC and CMP are overall unremarkable. Case was discussed with pulmonary. 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 Review of Systems 14 point ROS is negative except as stated in HPI Past Medical History Past Medical History: Asthma, Cancer, COPD, GERD/Reflux, Hyperlipidemia, Hype rtension, Osteoarthritis (OA), Pneumonia, Respiratory Disorder, Sleep Apnea/CPAP/BIPAP Additional Past Medical History / Comment(s): Stage IV metastatic cancer of the lung/adenocarcinoma, history of malignant pleural effusion, COPD, history of prostate cancer treated by radiation therapy back in 2009, hypertension, COPD, obstructive sleep apnea, coronary artery disease, severe degenerative arthritis, acid reflux, history of small bowel obstruction requiring surgery, chronic back pain, remote history of shingles back in the 70s, history of diverticulosis, hyperlipidemia, hypertension History of Any Multi-Drug Resistant Organisms: None Reported Past Surgical History: Bowel Resection, Heart Catheterization With Stent, Orthopedic Surgery, Tonsillectomy Additional Past Surgical History / Comment(s): SOL EAR SX,SINUS SX X2, GERD/HIATAL HERNIA SURGERY, BOWEL RESECTON D/T RUPTURE WITH COLOSTOMY-SINCE REVERSED, SOL SHOULDER REPLACEMENT, SOL KNEE REPLACMENT., left cataract removed Past Anesthesia/Blood Transfusion Reactions: No Reported Reaction, Motion Sickness Date of Last Stent Placement:: 2005 Past Psychological History: Depression Smoking Status: Current some day smoker Past Alcohol Use History: Occasional Additional Past Alcohol Use History / Comment(s): SMOKES OCCASIONAL CIGAR. STARTED SMOKING AT AGE 14 ,SMOKED TILL AGE 43 2PPD. Past Drug Use History: None Reported - Past Family History Mother Family Medical History: Cancer Additional Family Medical History / Comment(s): MULTIPLE MEYLOMA Father Family Medical History: Cancer Additional Family Medical History / Comment(s): LUNG CANCER Sister(s) Family Medical History: Cancer Son(s) Family Medical History: Cancer Medications and Allergies Home Medications Medication Instructions Recorded Confirmed Type FLUoxetine HCL [PROzac] 20 mg PO DAILY 08/05/14 12/26/18 History Levothyroxine Sodium [Synthroid] 50 mcg PO DAILY 08/05/14 12/26/18 History Montelukast [Singulair] 10 mg PO HS 08/05/14 12/26/18 History Omeprazole [PriLOSEC] 40 mg PO DAILY 08/05/14 12/26/18 History Pravastatin Sodium [Pravachol] 40 mg PO HS 08/05/14 12/26/18 History Tamsulosin [Flomax] 0.4 mg PO DAILY 08/05/14 12/26/18 History Cetirizine HCl [Zyrtec] 10 mg PO DAILY 11/24/15 12/26/18 History Folic Acid 1 mg PO DAILY 02/12/18 12/26/18 History amLODIPine [Norvasc] 5 mg PO DAILY 02/12/18 12/26/18 History Fluticasone Nasal [place] [Flonase 2 spr EA NOSTRIL DAILY 12/26/18 12/26/18 History Nasal [place]] Fluticasone/Salmeterol [Advair 1 puff INHALATION RT-BID 12/26/18 12/26/18 History 250-50 Diskus] Fluticasone/Salmeterol [Advair Hfa 2 puff INHALATION RT-BID PRN 12/26/18 12/26/18 History 230-21 Mcg Inhaler] Allergies Allergy/AdvReac Type Severity Reaction Status Date / Time No Known Allergies Allergy Verified 12/26/18 21:07 Physical Exam Vitals: Vital Signs Temp Pulse Pulse Resp BP BP Pulse Ox 12/28/18 15:12 66 18 95 12/28/18 13:45 14 144/68 12/28/18 12:45 87 14 150/75 95 12/28/18 12:00 16 12/28/18 11:45 16 148/68 12/28/18 11:15 68 22 152/86 95 12/28/18 10:55 72 12/28/18 10:45 68 72 22 143/67 90 L 12/28/18 10:30 70 20 144/86 94 L 12/28/18 10:15 68 22 143/86 95 12/28/18 10:00 97.7 F 68 20 145/78 94 L 12/28/18 08:00 98.2 F 68 22 143/84 96 12/28/18 04:00 98 F 77 20 146/87 94 L 12/28/18 00:00 98.0 F 70 20 150/90 97 12/27/18 20:14 90 18 12/27/18 20:02 92 18 12/27/18 20:00 98.1 F 78 20 153/94 98 12/27/18 16:00 97.6 F 82 16 116/67 94 L 12/27/18 15:53 94 18 12/27/18 15:42 97 18 98 Intake and Output 12/28/18 12/28/18 12/28/18 06:59 14:59 22:59 Intake Total 1620 Output Total 425 Balance -425 1620 Intake: IV 100 Intake, IV Titration 400 Amount Doxycycline 100 mg In 100 Sodium Chloride 0.9% 100 ml @ 100 mls/hr IVPB Q12H [facility] Rx#:[id number] Sodium Chloride 0.9% 1, 300 000 ml @ 75 mls/hr IV . [id number] [facility] Rx#:[id number] Oral 1120 Output: Urine 425 Other: # Voids 1 Weight 99.4 kg - Constitutional General appearance: average body habitus, cooperative, mild distress - EENT Eyes: anicteric sclerae, EOMI ENT: hearing grossly normal, normal oropharynx - Neck Neck: no lymphadenopathy - Respiratory Respiratory: bilateral: diminished, rhonchi, wheezing - Cardiovascular Rhythm: regular Heart sounds: normal: S1, S2 Abnormal Heart Sounds: no systolic murmur, no diastolic murmur, no rub, no S3 Gallop, no S4 Gallop, no click, no other leg Peripheral Edema: bilateral: None - Gastrointestinal General gastrointestinal: no absent bowel sounds, no decreased bowel sounds, no distended, no hepatomegaly, no hyperactive bowel sounds, normal bowel sounds, no organomegaly, no rigid, no scaphoid, soft, no splenomegaly, no tenderness, no umbilical hernia, no ventral hernia - Integumentary Integumentary: pale - Neurologic Neurologic: CNII-XII intact - Musculoskeletal Musculoskeletal: generalized weakness, strength equal bilaterally - Psychiatric Psychiatric: A&O x's 3, appropriate affect, intact judgment & insight Results CBC & Chem 7: 12/28/18 06:15 12/28/18 06:15 Labs: Abnormal Lab Results - Last 24 Hours (Table) 12/27/18 12/27/18 12/28/18 Range/Units 16:32 20:31 05:30 Hgb (13.0-17.5) gm/dL Neutrophils # (1.3-7.7) k/uL Lymphocytes # (1.0-4.8) k/uL Chloride (98-107) mmol/L Carbon Dioxide (22-30) mmol/L BUN (9-20) mg/dL Glucose (74-99) mg/dL POC Glucose (mg/dL) 134 H 191 H 150 H (75-99) mg/dL 12/28/18 12/28/18 12/28/18 Range/Units 06:15 06:15 11:12 Hgb 12.5 L (13.0-17.5) gm/dL Neutrophils # 9.1 H (1.3-7.7) k/uL Lymphocytes # 0.5 L (1.0-4.8) k/uL Chloride 111 H (98-107) mmol/L Carbon Dioxide 19 L (22-30) mmol/L BUN 22 H (9-20) mg/dL Glucose 147 H (74-99) mg/dL POC Glucose (mg/dL) 163 H (75-99) mg/dL Microbiology - Last 24 Hours (Table) 12/27/18 11:26 Blood Culture - Preliminary Blood No Growth after 24 hours Comments: VQ scan report reviewed Chest x-ray: report reviewed Assessment and Plan (1) Acute respiratory failure with hypoxia Narrative/Plan: Patient is being followed closely by Pulmonary. He is on oxygen with improvement in his saturation. VQ scan had a low probability for pulmonary embolism Echo shows a 60-65% ejection fraction. 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 Case was discussed with the Primary Oncologist, Pulmonary team and Pharmacist. The 60 mg of Solu-Medrol 4 times a day is adequate steroid coverage and > then the 1mg/kg of prednisone for immunotherapy side effects. CT of the chest without contrast has been ordered. Current Visit: Yes Status: Acute Priority: High Code(s): J96.01 - ACUTE RESPIRATORY FAILURE WITH HYPOXIA SNOMED Code(s): 13059046 (2) Non-small cell lung cancer (NSCLC) Narrative/Plan: Patient is status post 3 cycles of the volume abdomen. Patient has had similar episodes post treatment with each cycle. Patient and family asked me if ongoing recurrent side effects such as what he is having would prevent him from continuing to receive the immunotherapy. Unfortunately, yes, it will. Follow up with Primary Oncologist on discharge prior to receiving any more treatment. Current Visit: Yes Status: Chronic Priority: High Code(s): C34.90 - MALIGNANT NEOPLASM OF UNSP PART OF UNSP BRONCHUS OR LUNG SNOMED Code(s): 719775254
[2018-12-28 16:31] LABS: Glucose,Whole Blood 140 mg/dL (75-99)
--- NOTE | 2018-12-28 16:38 | P.PN ---
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 This is a 78-year-old male patient with known history of stage IV adenocarcinoma of the lung that was diagnosed initially in 2015. Back then the patient presented with a malignant plural effusion. The patient was given the diagnosis of stage IV adenocarcinoma of the lung. A PET scan that was done at that time showed a suspicious uptake in the right upper lobe with a 2.2 cm paraspinal mass. The MRI of the brain was negative. The patient received a combination of carboplatinum, Alimta and Avastin. That she was started on December 2015 and the patient completed 4 cycles of chemotherapy on 03/02/2016. Following that the patient was started on Alimta maintenance and this was started on 05/04/2016. Since then, the patient had multiple CAT scans demonstrating stability till the most recent CAT scan of the chest that was done on 08/24/2018 that showed multiple opacities in the left lower lobe with some increased infiltration consistent with lymphangitic spread. At that point, the possibility of disease progression was considered and the patient underwent a bronchoscopy and transbronchial biopsies of the left lower lobe confirmed the diagnosis of adenocarcinoma of the lung. At that point, the patient was started on immunotherapy and the patient has already received a total of 4 sessions of Opdivo. The patient is known to have COPD, hypertension, coronary artery disease and obstructive sleep apnea. He is also known to have history of prostate cancer and he has received radiation therapy to the prostate back in 2009. The patient has been having ongoing difficulties in breathing. He has required systemic steroids on multiple occasions and all of this was offered to him through Dr. Rutherford and Dr. Barrera on outpatient basis. The patient came into the emergency department yesterday because of 1 week worsening of shortness of breath. He was in our pulmonary office approximately 2 weeks ago and was doing relatively well. He has become progressively more hypoxic and he came in with increased dyspnea and some chest pain. The troponin was minimally elevated and the troponin level peaked at 0.038. The EKG showed sinus tachycardia otherwise it was a normal EKG. The echocardiogram showed ejection fraction of 60-65% with a moderate degree of aortic stenosis with a valve gradient of 34 mmHg. The chest x-ray showed bilateral lung opacities that has been increased compared to the previous chest x-ray. 12/06/2018. There is worsening of the pulmonary infiltrates patient left perihilar area and the infiltrates are left more than right. There is trace pleural effusion. VQ scan was of a low probability. Patient was placed on IV Rocephin. The patient was placed on IV heparin. The p atient was started on IV Solu-Medrol. Currently is on 8 L of oxygen nasal cannula. The patient is going to undergo a cardiac catheterization upon the request of cardiology tomorrow. He is able to speak in full sentences. No pleurisy. No hemoptysis. Patient was seen today 12/28/2018 in follow-up on the selective care unit. He is currently resting fairly comfortably in bed. Still quite dyspneic on minimal exertion. He is down to 4 L high flow nasal cannula to maintain O2 saturations in the 90s. He's been afebrile. Hemodynamically stable. Blood and sputum cultures are pending. White count 10.1. Hemoglobin 12.5. Creatinine 1.14. He remains on ceftriaxone and doxycycline. Appendectomy remains on IV Solu-Medrol for now. He did undergo cardiac catheterization this morning and was found to have intermediate severe disease involving the right coronary artery and first diagonal branch of the LAD. He is recommended medical therapy per cardiology. Objective - Vital Signs Vital signs: Vital Signs Temp 97.7 F 12/28/18 10:00 Pulse 68 12/28/18 15:27 Resp 18 12/28/18 15:27 BP 144/68 12/28/18 13:45 Pulse Ox 95 12/28/18 15:12 Intake & Output 12/27/18 12/28/18 12/28/18 18:59 06:59 18:59 Intake Total 749.081 283 7872 Output Total 350 1025 Balance 399.449 -385 1620 Weight 97.6 kg 99.4 kg Intake: IV 100 Intake, IV Titration 149.449 400 400 Amount Doxycycline 100 mg In 100 100 Sodium Chloride 0.9% 100 ml @ 100 mls/hr IVPB Q12H [facility] Rx#:[id number] Heparin Sod,Pork in 0.45% 149.449 NaCl 25,000 unit In 0.45 % NaCl 1 250ml.bag @ 18 UNITS/KG/HR 17.554 mls/hr IV .[id number] [facility] Rx#: [id number] Sodium Chloride 0.9% 1, 300 000 ml @ 75 mls/hr IV . [id number] [facility] Rx#:[id number] Sodium Chloride 0.9% 1, 300 000 ml @ 75 mls/hr IV . [id number] [facility] Rx#:[id number] Oral 204 214 5678 Output: Urine 350 1025 Other: # Voids 1 - Exam GENERAL: The patient is alert and oriented x3, not in any acute distress. Well developed, well nourished. On 4 L high flow nasal cannula. HEENT: Pupils are round and equally reacting to light. EOMI. No scleral icterus. No conjunctival pallor. Normocephalic, atraumatic. No pharyngeal erythema. No thyromegaly. CARDIOVASCULAR: S1 and S2 present. No murmurs, rubs, or gallops. PULMONARY: Chest is clear to auscultation, some limited crackles in the mid lung areas left more than right. Few scattered expiratory wheezes. ABDOMEN: Soft, nontender, nondistended, normoactive bowel sounds. No palpable organomegaly. MUSCULOSKELETAL: No joint swelling or deformity. EXTREMITIES: No cyanosis, clubbing, or pedal edema. NEUROLOGICAL: Gross neurological examination did not reveal any focal deficits. SKIN: No rashes.Examination of the skin revealed no evidence of significant rashes, suspicious appearing nevi or other concerning lesions. - Labs CBC & Chem 7: 12/28/18 06:15 12/28/18 06:15 Labs: Abnormal Lab Results - Last 24 Hours (Table) 12/27/18 12/27/18 12/28/18 Range/Units 16:32 20:31 05:30 Hgb (13.0-17.5) gm/dL Neutrophils # (1.3-7.7) k/uL Lymphocytes # (1.0-4.8) k/uL Chloride (98-107) mmol/L Carbon Dioxide (22-30) mmol/L BUN (9-20) mg/dL Glucose (74-99) mg/dL POC Glucose (mg/dL) 134 H 191 H 150 H (75-99) mg/dL 12/28/18 12/28/18 12/28/18 Range/Units 06:15 06:15 11:12 Hgb 12.5 L (13.0-17.5) gm/dL Neutrophils # 9.1 H (1.3-7.7) k/uL Lymphocytes # 0.5 L (1.0-4.8) k/uL Chloride 111 H (98-107) mmol/L Carbon Dioxide 19 L (22-30) mmol/L BUN 22 H (9-20) mg/dL Glucose 147 H (74-99) mg/dL POC Glucose (mg/dL) 163 H (75-99) mg/dL Microbiology - Last 24 Hours (Table) 12/28/18 10:45 Sputum Culture - Preliminary Sputum 12/27/18 11:26 Blood Culture - Preliminary Blood No Growth after 24 hours Assessment and Plan Assessment: Impression: 1 acute hypoxic respiratory failure with development of bilateral pulmonary infiltrates left more than right. Consider pneumonia/infectious pneumonia. Consider interstitial lung disease related to immunotherapy. Cancer progression is felt to be less likely knowing that there has been significant progression the pulmonary infiltrates over the past 4 weeks. Heart failure is also felt to be less likely. 2 coronary artery disease with a component of non-STEMI and the patient is currently on IV heparin chest pain-free. Cardiac catheterization today revealed intermediate to severe disease involving the right coronary artery and first diagonal branch of the LAD.. The plan is for medical therapy unless the patient has any further chest discomfort. 3 stage IV adenocarcinoma of the lung with previous history of malignant pleural effusion 4 COPD 5 remote history of present cancer status post radiation therapy 6 no history of coronary artery disease with previous coronary intervention and stenting 7 hypothyroidism 8 hypertension 9 hyperlipidemia 10 obstructive sleep apnea 11 acute kidney injury improving and the patient's creatinine is down to 1.14 Plan: The patient was seen and evaluated by Dr. Sigala. We'll continue with steroids for now. 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 Oncology has been consulted and plans to switch to high-dose prednisone tomorrow. We'll continue to titrate down the FiO2 as tolerated. We'll continue to follow make further recommendations based on his clinical status. I, the cosigning physician, performed a history & physical examination of the patient. Lungs sounds with bilateral end expiratory wheeze, few scattered rhonchi, crackles in posterior bases. Maintaining good O2 saturations in the 90s on 4 L high flow nasal cannula. I discussed the assessment and plan of care with my nurse practitioner, America Saunders. I attest to the above note as dictated by her.
--- NOTE | 2018-12-28 16:53 | CT ---
EXAMINATION TYPE: CT chest wo con DATE OF EXAM: 12/28/2018 COMPARISON: Chest CT November 28, 2018 HISTORY: Difficulty breathing. CT DLP: 537.9 mGycm. Automated Exposure Control for Dose Reduction was Utilized. TECHNIQUE: CT scan of the thorax is performed without IV contrast. FINDINGS: LUNGS: There is background mild emphysematous change. There is increasing groundglass opacity with ar eas of consolidation left mid to lower lung most prominent in the left lower lobe but to a lesser ext ent involving the right lower lung. There is tiny left pleural fluid collection redemonstrated. MEDIASTINUM: Lack of IV contrast is noted to limit evaluation for mediastinal and especially hilar ad enopathy. There are no definitive greater than 1 cm hilar or mediastinal lymph nodes. No cardiomega ly or pericardial effusion is seen. Moderate coronary artery calcification is seen which is more mirian ed underlying coronary artery disease. OTHER: Dependent density in gallbladder is felt to reflect small sludge and/or gallstones. Mild multi level spurring in thoracic spine is present. Metallic artifact bilateral shoulder surgery is partiall y imaged causing streak artifact limiting evaluation of the supraclavicular region. IMPRESSION: Increasing bilateral lower lung infiltrates and/or consolidation on background chronic pa renchymal change, left greater than right.
[2018-12-28 20:21] LABS: Glucose,Whole Blood 202 mg/dL (75-99)
[2018-12-28] MEDS: PRAVASTATIN SODIUM 40 MG TAB PO SCH (20:55)
[2018-12-28] MEDS: ZOLPIDEM 5 MG TAB PO PRN (20:55)
[2018-12-29 05:53] LABS: Glucose,Whole Blood 141 mg/dL (75-99)
[2018-12-29 06:04] LABS: Basophils % (A) 0 %; Eosinophils % (A) 0 %; HCT 38.3 % (39.0-53.0); HGB 12.1 gm/dL (13.0-17.5); Lymphocytes # (A) 0.4 k/uL (1.0-4.8); Lymphocytes % (A) 5 %; MCH 28.2 pg (25.0-35.0); MCHC 31.7 g/dL (31.0-37.0); MCV 88.9 fL (80.0-100.0); Mean Platelet Volume 7.9; Monocytes # (A) 0.3 k/uL (0-1.0); Monocytes % (A) 3 %; Neutrophils # (A) 7.8 k/uL (1.3-7.7); Neutrophils % (A) 90 %; Platelet Count 271 k/uL (150-450); RBC 4.31 m/uL (4.30-5.90); RDW 15.1 % (11.5-15.5); WBC 8.6 k/uL (3.8-10.6)
[2018-12-29] MEDS: methylPREDNISolone SOD SUCCI 125 MG/2 ML VIAL IV SCH ×4 (06:05→22:34)
[2018-12-29] MEDS: INSULIN ASPART (NovoLOG) 100 UNIT/ML VIAL SQ SCH ×4 (06:05→20:54)
[2018-12-29 06:14] LABS: Prothrombin Time 10.4 sec (9.0-12.0)
--- NOTE | 2018-12-29 06:25 | XR ---
EXAMINATION TYPE: XR chest 1V portable DATE OF EXAM: 12/29/2018 HISTORY: CHF. REFERENCE: Previous study dated 12/26/2018. FINDINGS: Bilateral shoulder arthroplasties are in place. The heart is enlarged. There is worsening left-sided airspace disease. There is a left effusion and p erhaps a small right effusion. The overall appearance has worsened. I suspect underlying COPD. IMPRESSION: 1. COPD. 2. CARDIOMEGALY. 3. WORSENING LEFT-SIDED AIRSPACE DISEASE. 4. LEFT-SIDED EFFUSION WITH PERHAPS A SMALL RIGHT-SIDED EFFUSION.
[2018-12-29] MEDS: IPRATROPIUM-ALBUTEROL 3 ML NEB INHALATION SCH ×4 (07:47→19:09)
[2018-12-29] MEDS: FAMOTIDINE 20 MG/2 ML VIAL IV SCH (08:25)
[2018-12-29] MEDS: METOPROLOL TARTRATE 12.5 MG TAB PO SCH (08:25)
[2018-12-29] MEDS: ASPIRIN 325 MG TAB PO SCH (08:25)
--- NOTE | 2018-12-29 09:01 | P.PN ---
Subjective Progress Note Date: 12/29/18 Principal diagnosis: Shortness of breath This is a pleasant 78-year-old gentleman was known history of coronary artery disease and prior stenting of the LAD, hypertension, dyslipidemia, and history of lung cancer currently on immunotherapy, presented to the hospital with shortness of breath. He was diagnosed with pneumonia and currently he is on antibiotic. Beside that he ruled in for acute coronary syndrome. Because of that he underwent a heart catheterization which revealed intermediate to severe disease without any high grade stenosis. Maximize medical treatment was advised. The echocardiogram showed normal LV function with moderate aortic stenosis. On follow-up with him today, he stated that he is feeling better internal shortness of breath. No chest pain at this point. He is a slightly hypertensive and tachycardic and because of that I would increase the dose of the metoprolol. Beside that continue the aspirin and statin. Continue following up with the patient. Objective - Vital Signs Vital signs: Vital Signs Temp 98.1 F 12/29/18 08:00 Pulse 79 12/29/18 08:00 Resp 19 12/29/18 03:35 BP 147/86 12/29/18 08:00 Pulse Ox 93 L 12/29/18 08:00 Intake & Output 12/28/18 12/29/18 12/29/18 18:59 06:59 18:59 Intake Total 2430 320 240 Balance 2430 320 240 Weight 98.9 kg Intake: IV 100 Intake, IV Titration 550 320 Amount Doxycycline 100 mg In 100 Sodium Chloride 0.9% 100 ml @ 100 mls/hr IVPB Q12H [facility] Rx#:[id number] Sodium Chloride 0.9% 1, 320 000 ml @ 40 mls/hr IV . Q24H [facility] Rx#:[id number] Sodium Chloride 0.9% 1, 450 000 ml @ 75 mls/hr IV . [id number] [facility] Rx#:[id number] Oral 1780 240 Other: Voiding Method Urinal # Voids 1 - Constitutional General appearance: Present: no acute distress - Respiratory Respiratory: bilateral: CTA - Cardiovascular Rhythm: regular Heart sounds: normal: S1, S2 Abnormal Heart Sounds: Present: systolic murmur - Labs CBC & Chem 7: 12/29/18 05:17 12/29/18 05:17 Labs: Abnormal Lab Results - Last 24 Hours (Table) 12/28/18 12/28/1812/28/19 Range/Units 11:12 16:29 20:19 Hgb (13.0-17.5) gm/dL Hct (39.0-53.0) % Neutrophils # (1.3-7.7) k/uL Lymphocytes # (1.0-4.8) k/uL Carbon Dioxide (22-30) mmol/L BUN (9-20) mg/dL Glucose (74-99) mg/dL POC Glucose (mg/dL) 163 H 140 H 202 H (75-99) mg/dL 12/29/18 12/29/18 12/29/18 Range/Units 05:17 05:17 05:52 Hgb 12.1 L (13.0-17.5) gm/dL Hct 38.3 L (39.0-53.0) % Neutrophils # 7.8 H (1.3-7.7) k/uL Lymphocytes # 0.4 L (1.0-4.8) k/uL Carbon Dioxide 21 L (22-30) mmol/L BUN 30 H (9-20) mg/dL Glucose 137 H (74-99) mg/dL POC Glucose (mg/dL) 141 H (75-99) mg/dL Microbiology - Last 24 Hours (Table) 12/28/18 10:45 Gram Stain - Preliminary Sputum Sputum Culture - Preliminary 12/27/18 11:26 Blood Culture - Preliminary Blood No Growth after 24 hours Assessment and Plan Assessment: Assessment #1 acute non-ST patient myocardial infarction #2 history of CAD and prior stenting #3 history of lung cancer #4 acute on chronic renal failure Plan #1 continue the aspirin as well as a statin #2 increase the dose of metoprolol #3 follow-up with the patient
[2018-12-29] MEDS: METOPROLOL TARTRATE 25 MG TAB PO SCH ×2 (10:17→20:54)
[2018-12-29 11:31] LABS: Glucose,Whole Blood 150 mg/dL (75-99)
[2018-12-29] MEDS: DOXYCYCLINE 100 MG in SODIUM CHLORIDE 0.9% 100 ML IVPB SCH ×2 (11:43→22:34)
[2018-12-29] MEDS: SODIUM CHLORIDE 0.9% 1,000 ML IV SCH (11:44)
--- NOTE | 2018-12-29 14:42 | P.PN ---
Subjective This is a pleasant 78 years old male with past medical history of asthma/COPD, GERD, hyperlipidemia, hypertension, osteoarthritis, sleep apnea on CPAP/BiPAP, history of lung cancer in 2015 status post chemotherapy. History of coronary artery disease status post stenting. Patient presents because of worsening dyspnea of one week duration after he got his immunotherapy last week. Also yesterday complains from some chest pain central radiating across the chest to the left side, about 6/10 in severity that lasted one day. And felt like a bur n. Patient has a history of COPD but he is not on home oxygen. Patient denies abdominal pain. No change in urine or bowel habits. No fever. Vitals are reviewed, he is saturating 95% on high flow oxygen at 9 L, mild to moderate tachypnea. CBC unremarkable, BMP showing creatinine was 1.7, compared to baseline of 1.2-1.3. Magnesium 1.3. Liver enzymes are mildly elevated. Chest x-ray: Worsening consolidation. EKG showing sinus tachycardia at 109, with no significant ST-T changes Patient was started on aspirin and heparin drip. Also on IV steroids and fluids of normal saline at 100 mL per hour V/Q scan: low probability for PE. On admission Patient has been evaluated by russian history professor and they're planning to do cardiac cath 12/28/2018 Patient has dyspnea this morning but no chest pain. He got some fluid for his dehydration state and to correct his creatinine. His creatinine looks better today, down from 1.23 to 1.14. His potassium and sodium are within normal limits. And his sugar is controlled. Magnesium 1.9. CBC is unremarkable, hemoglobin 12.5. Patient is going for cardiac cath this morning. Oncology team has been consulted for possible metastatic disease to the lung. Pulmonary team input is appreciated. 12/29/2018 Patient today feels better, although he still dyspneic. No chest pain. No abdominal pain. He still have some dry cough. Escalator Mechanic evaluated the patient. Increase metoprolol for his high blood pressure and tachycardia. Possible interstitial lung disease secondary to immunotherapy. And oncology team has been consulted whether recommended high-dose of prednisone. Objective - Vital Signs Vital signs: Vital Signs Temp 98.1 F 12/29/18 08:00 Pulse 68 12/29/18 11:45 Resp 19 12/29/18 03:35 BP 147/86 12/29/18 08:00 Pulse Ox 93 L 12/29/18 08:00 Intake & Output 12/28/18 12/29/18 12/29/18 18:59 06:59 18:59 Intake Total 2430 320 240 Output Total 300 Balance 2430 320 -60 Weight 98.9 kg Intake: IV 100 Intake, IV Titration 550 320 Amount Doxycycline 100 mg In 100 Sodium Chloride 0.9% 100 ml @ 100 mls/hr IVPB Q12H [facility] Rx#:[id number] Sodium Chloride 0.9% 1, 320 000 ml @ 40 mls/hr IV . Q24H [facility] Rx#:[id number] Sodium Chloride 0.9% 1, 450 000 ml @ 75 mls/hr IV . [id number] [facility] Rx#:[id number] Oral 1780 240 Output: Urine 300 Other: Voiding Method Urinal # Voids 1 - Exam GENERAL: The patient is alert and oriented x3, not in any acute distress. Well developed, well nourished. HEENT: Pupils are round and equally reacting to light. EOMI. No scleral icterus. No conjunctival pallor. Normocephalic, atraumatic. No pharyngeal erythema. No thyromegaly. CARDIOVASCULAR: S1 and S2 present. No murmurs, rubs, or gallops. PULMONARY: Chest is clear to auscultation, no wheezing or crackles. ABDOMEN: Soft, nontender, nondistended, normoactive bowel sounds. No palpable organomegaly. MUSCULOSKELETAL: No joint swelling or deformity. EXTREMITIES: No cyanosis, clubbing, or pedal edema. NEUROLOGICAL: Gross neurological examination did not reveal any focal deficits. SKIN: No rashes. - Labs CBC & Chem 7: 12/29/18 05:17 12/29/18 05:17 Labs: Abnormal Lab Results - Last 24 Hours (Table) 12/28/18 12/28/18 12/29/18 Range/Units 16:29 20:19 05:17 Hgb 12.1 L (13.0-17.5) gm/dL Hct 38.3 L (39.0-53.0) % Neutrophils # 7.8 H (1.3-7.7) k/uL Lymphocytes # 0.4 L (1.0-4.8) k/uL Carbon Dioxide (22-30) mmol/L BUN (9-20) mg/dL Glucose (74-99) mg/dL POC Glucose (mg/dL) 140 H 202 H (75-99) mg/dL 12/29/18 12/29/18 12/29/18 Range/Units 05:17 05:52 11:30 Hgb (13.0-17.5) gm/dL Hct (39.0-53.0) % Neutrophils # (1.3-7.7) k/uL Lymphocytes # (1.0-4.8) k/uL Carbon Dioxide 21 L (22-30) mmol/L BUN 30 H (9-20) mg/dL Glucose 137 H (74-99) mg/dL POC Glucose (mg/dL) 141 H 150 H (75-99) mg/dL Microbiology - Last 24 Hours (Table) 12/27/18 11:26 Blood Culture - Preliminary Blood No Growth after 48 hours 12/28/18 10:45 Gram Stain - Preliminary Sputum Sputum Culture - Preliminary Assessment and Plan Assessment: Acute non-ST elevation myocardial infarction Acute COPD exacerbation Worsening lung opacities, left more than right. Suspicious for pneumonia. Patient with no fever or leukocytosis. However neutrophils is elevated Elevated d-dimer, with VQ scan is low probability for pulmonary embolism Acute kidney injury on chronic kidney disease Chronic kidney disease stage III History of lung cancer status post chemotherapy History of coronary artery disease, status post stenting History of GERD Hypertension Hyperlipidemia Osteoarthritis History of sleep apnea on CPAP/BiPAP Plan: This is a pleasant 78 years old male who presents with worsening lung opacities with COPD and non-STEMI, possible pneumonia, patient was started on heparin drip on admission, continue with antibiotic, steroid treatment, breathing treatment and oxygen. Cardiology and pulmonary consult. VQ scan. Continue with IV fluids. Continue with aspirin. Start antibiotic. Sent for sputum and blood culture Labs and medication were reviewed.. Continue same treatment. Continue with symptomatic treatment. Resume home medication. Monitor lytes and vitals. DVT and GI prophylaxis. Further recommendations of the clinical course of the patient DVT prophylaxis: heparin GI Prophylaxis: Pepcid Prognosis is guarded
--- NOTE | 2018-12-29 15:19 | P.PN ---
Subjective Progress Note Date: 12/29/18 Principal diagnosis: Acute hypoxic respiratory failure secondary to suspected infectious pneumonia versus interstitial lung disease secondary to immunotherapy. This is a 78-year-old male patient with known history of stage IV adenocarcinoma of the lung that was diagnosed initially in 2015. Back then the patient presented with a malignant plural effusion. The patient was given the diagnosis of stage IV adenocarcinoma of the lung. A PET scan that was done at that time showed a suspicious uptake in the right upper lobe with a 2.2 cm paraspinal mass. The MRI of the brain was negative. The patient received a combination of carboplatinum, Alimta and Avastin. That she was started on December 2015 and the patient completed 4 cycles of chemotherapy on 03/02/2016. Following that the patient was started on Alimta maintenance and this was started on 05/04/2016. Since then, the patient had multiple CAT scans demonstrating stability till the most recent CAT scan of the chest that was done on 08/24/2018 that showed multiple opacities in the left lower lobe with some increased infiltration consistent with lymphangitic spread. At that point, the possibility of disease progression was considered and the patient underwent a bronchoscopy and transbronchial biopsies of the left lower lobe confirmed the diagnosis of adenocarcinoma of the lung. At that point, the patient was started on immunotherapy and the patient has already received a total of 4 sessions of Opdivo. The patient is known to have COPD, hypertension, coronary artery disease and obstructive sleep apnea. He is also known to have history of prostate cancer and he has received radiation therapy to the prostate back in 2009. The patient has been having ongoing difficulties in breathing. He has required systemic steroids on multiple occasions and all of this was offered to him through Dr. Rutherford and Dr. Barrera on outpatient basis. The patient came into the emergency department yesterday because of 1 week worsening of shortness of breath. He was in our pulmonary office approximately 2 weeks ago and was doing relatively well. He has become progressively more hypoxic and he came in with increased dyspnea and some chest pain. The troponin was minimally elevated and the troponin level peaked at 0.038. The EKG showed sinus tachycardia otherwise it was a normal EKG. The echocardiogram showed ejection fraction of 60-65% with a moderate degree of aortic stenosis with a valve gradient of 34 mmHg. The chest x-ray showed bilateral lung opacities that has been increased compared to the previous chest x-ray. 12/06/2018. There is worsening of the pulmonary infiltrates patient left perihilar area and the infiltrates are left more than right. There is trace pleural effusion. VQ scan was of a low probability. Patient was placed on IV Rocephin. The patient was placed on IV heparin. The p atient was started on IV Solu-Medrol. Currently is on 8 L of oxygen nasal cannula. The patient is going to undergo a cardiac catheterization upon the request of cardiology tomorrow. He is able to speak in full sentences. No pleurisy. No hemoptysis. Patient was seen today 12/28/2018 in follow-up on the selective care unit. He is currently resting fairly comfortably in bed. Still quite dyspneic on minimal exertion. He is down to 4 L high flow nasal cannula to maintain O2 saturations in the 90s. He's been afebrile. Hemodynamically stable. Blood and sputum cultures are pending. White count 10.1. Hemoglobin 12.5. Creatinine 1.14. He remains on ceftriaxone and doxycycline. Appendectomy remains on IV Solu-Medrol for now. He did undergo cardiac catheterization this morning and was found to have intermediate severe disease involving the right coronary artery and first diagonal branch of the LAD. He is recommended medical therapy per cardiology. The patient is seen today in 12/29/2018 in follow-up on the selective care unit. He is currently resting quite comfortably in bed. Awake and alert in no acute distress. Breathing easier today as compared to yesterday. Almost back to his baseline. Maintaining O2 saturations in the high 90s on 2 L/m per nasal cannula. He is afebrile. Hemodynamically stable. Blood and sputum cultures reveal no growth. White count 8.6. Hemoglobin 12.1. Creatinine 1.09. Remains on DuoNeb inhalations, IV Solu-Medrol, antibiotics in the form of doxycycline and ceftriaxone. Objective - Vital Signs Vital signs: Vital Signs Temp 98.1 F 12/29/18 12:00 Pulse 60 12/29/18 12:00 Resp 18 12/29/18 12:00 BP 176/80 12/29/18 12:00 Pulse Ox 99 12/29/18 12:00 Intake & Output 12/28/18 12/29/18 12/29/18 18:59 06:59 18:59 Intake Total 2430 320 240 Output Total 300 Balance 2430 320 -60 Weight 98.9 kg Intake: IV 100 Intake, IV Titration 550 320 Amount Doxycycline 100 mg In 100 Sodium Chloride 0.9% 100 ml @ 100 mls/hr IVPB Q12H [facility] Rx#:[id number] Sodium Chloride 0.9% 1, 320 000 ml @ 40 mls/hr IV . Q24H [facility] Rx#:[id number] Sodium Chloride 0.9% 1, 450 000 ml @ 75 mls/hr IV . [id number] [facility] Rx#:[id number] Oral 1780 240 Output: Urine 300 Other: Voiding Method Urinal # Voids 1 - Exam GENERAL: The patient is alert and oriented x3, not in any acute distress. Well developed, well nourished. On 2 L high flow nasal cannula. HEENT: Pupils are round and equally reacting to light. EOMI. No scleral icterus. No conjunctival pallor. Normocephalic, atraumatic. No pharyngeal erythema. No thyromegaly. CARDIOVASCULAR: S1 and S2 present. No murmurs, rubs, or gallops. PULMONARY: Chest is clear to auscultation, some limited crackles in the mid lung areas left more than right. Few scattered expiratory wheezes. ABDOMEN: Soft, nontender, nondistended, normoactive bowel sounds. No palpable organomegaly. MUSCULOSKELETAL: No joint swelling or deformity. EXTREMITIES: No cyanosis, clubbing, or pedal edema. NEUROLOGICAL: Gross neurological examination did not reveal any focal deficits. SKIN: No rashes.Examination of the skin revealed no evidence of significant rashes, suspicious appearing nevi or other concerning lesions. - Labs CBC & Chem 7: 12/29/18 05:17 12/29/18 05:17 Labs: Abnormal Lab Results - Last 24 Hours (Table) 12/28/18 12/28/18 12/29/18 Range/Units 16:29 20:19 05:17 Hgb 12.1 L (13.0-17.5) gm/dL Hct 38.3 L (39.0-53.0) % Neutrophils # 7.8 H (1.3-7.7) k/uL Lymphocytes # 0.4 L (1.0-4.8) k/uL Carbon Dioxide (22-30) mmol/L BUN (9-20) mg/dL Glucose (74-99) mg/dL POC Glucose (mg/dL) 140 H 202 H (75-99) mg/dL 12/29/18 12/29/18 12/29/18 Range/Units 05:17 05:52 11:30 Hgb (13.0-17.5) gm/dL Hct (39.0-53.0) % Neutrophils # (1.3-7.7) k/uL Lymphocytes # (1.0-4.8) k/uL Carbon Dioxide 21 L (22-30) mmol/L BUN 30 H (9-20) mg/dL Glucose 137 H (74-99) mg/dL POC Glucose (mg/dL) 141 H 150 H (75-99) mg/dL Microbiology - Last 24 Hours (Table) 12/27/18 11:26 Blood Culture - Preliminary Blood No Growth after 48 hours 12/28/18 10:45 Gram Stain - Preliminary Sputum Sputum Culture - Preliminary Assessment and Plan Assessment: Impression: 1 acute hypoxic respiratory failure with development of bilateral pulmonary infiltrates left more than right. Consider pneumonia/infectious pneumonia. Consider interstitial lung disease related to immunotherapy. Cancer progression is felt to be less likely knowing that there has been significant progression the pulmonary infiltrates over the past 4 weeks. Heart failure is also felt to be less likely. 2 coronary artery disease with a component of non-STEMI and the patient is currently on IV heparin chest pain-free. Cardiac catheterization today revealed intermediate to severe disease involving the right coronary artery and first diagonal branch of the LAD.. The plan is for medical therapy unless the patient has any further chest discomfort. 3 stage IV adenocarcinoma of the lung with previous history of malignant pleural effusion, currently on immunotherapy. 4 COPD 5 remote history of present cancer status post radiation therapy 6 no history of coronary artery disease with previous coronary intervention and stenting 7 hypothyroidism 8 hypertension 9 hyperlipidemia 10 obstructive sleep apnea 11 acute kidney injury improving and the patient's creatinine is down to 1.14 Plan: The patient was seen and evaluated by Dr. Sigala. CAT scan and chest x-rays were reviewed. Continues with slightly worsened left-sided airspace disease. A left-sided effusion. We'll continue with the current treatment plan. We'll co ntinue to titrate down the FiO2 as tolerated. We'll talk to oncology regarding continuing on the immunotherapy. We'll continue to follow and make further recommendations based on his clinical status. I, the cosigning physician, performed a history & physical examination of the p atient. Lungs sounds with bilateral end expiratory wheeze, few scattered rhonchi, crackles in posterior bases. Maintaining good O2 saturations in the 90s on 2 L high flow nasal cannula. I discussed the assessment and plan of care with my nurse practitioner, America Saunders. I attest to the above note as dictated by her.
[2018-12-29 16:44] LABS: Glucose,Whole Blood 208 mg/dL (75-99)
[2018-12-29 20:40] LABS: Glucose,Whole Blood 181 mg/dL (75-99)
[2018-12-29] MEDS: PRAVASTATIN SODIUM 40 MG TAB PO SCH (20:54)
[2018-12-29] MEDS: ZOLPIDEM 5 MG TAB PO PRN (20:54)
[2018-12-30] MEDS ORDERED: FUROSEMIDE 10 MG/ML 4 ML VIAL IV STA (05:50)
[2018-12-30] MEDS: methylPREDNISolone SOD SUCCI 125 MG/2 ML VIAL IV SCH ×3 (06:03→18:13)
[2018-12-30 06:10] LABS: Glucose,Whole Blood 139 mg/dL (75-99)
[2018-12-30] MEDS: INSULIN ASPART (NovoLOG) 100 UNIT/ML VIAL SQ SCH ×4 (06:10→21:49)
[2018-12-30 06:17] LABS: Calcium 10.2 mg/dL (8.4-10.2); Potassium 4.5 mmol/L (3.5-5.1)
[2018-12-30 06:18] LABS: INR 0.9 (<1.2); Prothrombin Time 10.2 sec (9.0-12.0)
--- NOTE | 2018-12-30 06:38 | XR ---
EXAM: XR Chest, 1 View CLINICAL HISTORY: ITS.REASON XR Reason: SOB TECHNIQUE: Frontal view of the chest. COMPARISON: 12/26/18 x-ray IMPRESSION: Cardiomegaly. Continued opacification of the left lung, possibly related to edema. Trace left pleural effusion.
[2018-12-30 06:39] LABS: Basophils % (A) 0 %; Eosinophils % (A) 0 %; HCT 39.5 % (39.0-53.0); HGB 12.8 gm/dL (13.0-17.5); Lymphocytes # (A) 0.5 k/uL (1.0-4.8); Lymphocytes % (A) 7 %; MCH 28.7 pg (25.0-35.0); MCHC 32.4 g/dL (31.0-37.0); MCV 88.6 fL (80.0-100.0); Mean Platelet Volume 7.7; Monocytes # (A) 0.3 k/uL (0-1.0); Monocytes % (A) 4 %; Neutrophils # (A) 6.3 k/uL (1.3-7.7); Neutrophils % (A) 87 %; Platelet Count 268 k/uL (150-450); RBC 4.46 m/uL (4.30-5.90); WBC 7.3 k/uL (3.8-10.6)
[2018-12-30] MEDS: IPRATROPIUM-ALBUTEROL 3 ML NEB INHALATION SCH ×4 (09:02→19:53)
--- NOTE | 2018-12-30 09:12 | P.PN ---
Subjective Progress Note Date: 12/30/18 Principal diagnosis: Shortness of breath This is a pleasant 78-year-old gentleman was known history of coronary artery disease and prior stenting of the LAD, hypertension, dyslipidemia, and history of lung cancer currently on immunotherapy, presented to the hospital with shortness of breath. He was diagnosed with pneumonia and currently he is on antibiotic. Beside that he ruled in for acute coronary syndrome. Because of that he underwent a heart catheterization which revealed intermediate to severe disease without any high grade stenosis. Maximize medical treatment was advised. The echocardiogram showed normal LV function with moderate aortic stenosis. On follow-up with the patient today, December 302018, he did develop acute respiratory distress last night. He was given one dose of Lasix IV. After that he was restarted on oxygen. He was feeling better yesterday morning before that happened. No chest pain or chest discomfort. A chest x-ray was performed and showed what it seems to be possible pulmonary edema. I'm going to start the patient on Lasix IV at 40 mg twice a day. Continue monitor the kidney function and electrolytes. Also obtain BNP. Objective - Vital Signs Vital signs: Vital Signs Temp 98.0 F 12/30/18 04:00 Pulse 60 12/30/18 09:02 Resp 20 12/30/18 05:54 BP 161/97 12/30/18 04:00 Pulse Ox 90 L 12/30/18 04:00 Intake & Output 12/29/18 12/30/18 12/30/18 18:59 06:59 18:59 Intake Total 462 240 Output Total 300 Balance 162 240 Weight 98.4 kg Intake: Oral 462 240 Output: Urine 300 Other: Voiding Method Urinal # Voids 1 - Constitutional General appearance: Present: no acute distress - Respiratory Respiratory: bilateral: rhonchi, wheezing - Cardiovascular Rhythm: regular Heart sounds: normal: S1, S2 Abnormal Heart Sounds: Present: systolic murmur - Labs CBC & Chem 7: 12/30/18 05:48 12/30/18 05:48 Labs: Abnormal Lab Results - Last 24 Hours (Table) 12/29/18 12/29/18 12/29/18 Range/Units 11:30 16:41 20:36 Hgb (13.0-17.5) gm/dL Lymphocytes # (1.0-4.8) k/uL BUN (9-20) mg/dL Glucose (74-99) mg/dL POC Glucose (mg/dL) 150 H 208 H 181 H (75-99) mg/dL 12/30/18 12/30/18 12/30/18 Range/Units 05:48 05:48 06:08 Hgb 12.8 L (13.0-17.5) gm/dL Lymphocytes # 0.5 L (1.0-4.8) k/uL BUN 30 H (9-20) mg/dL Glucose 147 H (74-99) mg/dL POC Glucose (mg/dL) 139 H (75-99) mg/dL Microbiology - Last 24 Hours (Table) 12/28/18 10:45 Gram Stain - Final Sputum Sputum Culture - Final 12/27/18 11:26 Blood Culture - Preliminary Blood No Growth after 48 hours Assessment and Plan Assessment: Assessment #1 acute non-ST patient myocardial infarction #2 history of CAD and prior stenting #3 history of lung cancer #4 congestive heart failure exacerbation secondary to diastole dysfunction Plan #1 continue the aspirin as well as a statin #2 start Lasix IV #3 obtain BMP #4 follow-up with the patient
[2018-12-30] MEDS: FAMOTIDINE 20 MG TAB PO SCH (09:49)
[2018-12-30] MEDS: ASPIRIN 325 MG TAB PO SCH (09:49)
[2018-12-30] MEDS: METOPROLOL TARTRATE 25 MG TAB PO SCH ×2 (09:49→21:47)
[2018-12-30] MEDS: SODIUM CHLORIDE 0.9% 1,000 ML IV SCH (09:51)
[2018-12-30 11:11] LABS: Glucose,Whole Blood 150 mg/dL (75-99)
[2018-12-30] MEDS: DOXYCYCLINE 100 MG in SODIUM CHLORIDE 0.9% 100 ML IVPB SCH ×2 (12:50→23:11)
--- NOTE | 2018-12-30 13:58 | P.PN ---
Subjective Progress Note Date: 12/30/18 Today's evaluation of 12/30/2018 the patient is doing well. The patient on room air oxygen. Pulse oxing 94-95% PEEP chest x-ray still showing breath and pulmonary infiltrates more so in the left perihilar area. Dr. Ortez so these abnormalities and the patient was given a dose of Lasix 40 mg IV push and the patient was started on IV Lasix 40 mg every 12 hours. We'll monitor the electrolytes. We'll obtain a BMP level. 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 No new complaints otherwise for now. His overall improved. Echocardiogram showed a moderate degree of aortic stenosis with a normal LV function. No fever. No chills. No other significant events overnight. He is sitting up on a chair and is calm and comfortable. Objective - Vital Signs Vital signs: Vital Signs Temp 97.9 F 12/30/18 08:00 Pulse 64 12/30/18 12:40 Resp 18 12/30/18 08:00 BP 152/85 12/30/18 08:00 Pulse Ox 92 L 12/30/18 08:00 Intake & Output 12/29/18 12/30/18 12/30/18 18:59 06:59 18:59 Intake Total 462 440 Output Total 300 600 Balance 162 -160 Weight 98.4 kg Intake: Oral 462 440 Output: Urine 300 600 Other: Voiding Method Urinal # Voids 1 - Exam GENERAL: The patient is alert and oriented x3, not in any acute distress. Well developed, well nourished. On 2 L high flow nasal cannula. HEENT: Pupils are round and equally reacting to light. EOMI. No scleral icterus. No conjunctival pallor. Normocephalic, atraumatic. No pharyngeal erythema. No thyromegaly. CARDIOVASCULAR: S1 and S2 present. No murmurs, rubs, or gallops. PULMONARY: Chest is clear to auscultation, some limited crackles in the mid lung areas left more than right. Few scattered expiratory wheezes. ABDOMEN: Soft, nontender, nondistended, normoactive bowel sounds. No palpable organomegaly. MUSCULOSKELETAL: No joint swelling or deformity. EXTREMITIES: No cyanosis, clubbing, or pedal edema. NEUROLOGICAL: Gross neurological examination did not reveal any focal deficits. SKIN: No rashes.Examination of the skin revealed no evidence of significant rashes, suspicious appearing nevi or other concerning lesions. - Labs CBC & Chem 7: 12/30/18 05:48 12/30/18 05:48 Labs: Abnormal Lab Results - Last 24 Hours (Table) 12/29/18 12/29/18 12/30/18 Range/Units 16:41 20:36 05:48 Hgb 12.8 L (13.0-17.5) gm/dL Lymphocytes # 0.5 L (1.0-4.8) k/uL BUN (9-20) mg/dL Glucose (74-99) mg/dL POC Glucose (mg/dL) 208 H 181 H (75-99) mg/dL 12/30/18 12/30/18 12/30/18 Range/Units 05:48 06:08 11:10 Hgb (13.0-17.5) gm/dL Lymphocytes # (1.0-4.8) k/uL BUN 30 H (9-20) mg/dL Glucose 147 H (74-99) mg/dL POC Glucose (mg/dL) 139 H 150 H (75-99) mg/dL Microbiology - Last 24 Hours (Table) 12/27/18 11:26 Blood Culture - Preliminary Blood No Growth after 72 hours 12/28/18 10:45 Gram Stain - Final Sputum Sputum Culture - Final Assessment and Plan Plan: 1 acute hypoxic respiratory failure with development of bilateral pulmonary infiltrates left more than right. Consider pneumonia/infectious pneumonia. Consider interstitial lung disease related to immunotherapy. Cancer progression is felt to be less likely knowing that there has been significant progression t he pulmonary infiltrates over the past 4 weeks. Heart failure is also felt to be less likely. 2 coronary artery disease with a component of non-STEMI and the patient is currently on IV heparin chest pain-free. Cardiac catheterization today revealed intermediate to severe disease involving the right coronary artery and first diagonal branch of the LAD.. The plan is for medical therapy unless the patient has any further chest discomfort. 3 stage IV adenocarcinoma of the lung with previous history of malignant pleural effusion, currently on immunotherapy. 4 COPD 5 remote history of present cancer status post radiation therapy 6 no history of coronary artery disease with previous coronary intervention and stenting 7 hypothyroidism 8 hypertension 9 hyperlipidemia 10 obstructive sleep apnea 11 acute kidney injury improving and the patient's creatinine is down to 1.2 Plan Continue IV Solu-Medrol. Oxygenation in general is improved and the patient is currently on room air. Chest x-ray is showing bilateral pulmonary infiltration which probably is a interstitial pneumonia. The patient was started on IV Lasix in addition. The patient was also on IV Rocephin and doxycycline. My impression is that the patient is having immunotherapy related interstitial lung disease. This needs to be discussed further with cardiology. Repeat chest x- ray in the morning. Clinically improved.
[2018-12-30 16:23] LABS: Glucose,Whole Blood 163 mg/dL (75-99)
[2018-12-30 19:50] LABS: Glucose,Whole Blood 185 mg/dL (75-99)
[2018-12-30] MEDS ORDERED: MONTELUKAST 10 MG TAB PO SCH (21:00)
--- NOTE | 2018-12-30 21:05 | PN ---
PROGRESS NOTE DATE OF SERVICE: 12/30/18. PRESENTING COMPLAINT: Tired. 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 The patient did tolerate a diet. Did get up to the bathroom. Breathing is better. REVIEW OF SYSTEMS: Done for constitutional, cardiovascular, GI, pulmonary; relevant findings as above. CURRENT MEDICATIONS: Include DuoNeb, IV ceftriaxone, doxycycline, IV Solu-Medrol, IV fluids, aspirin. PHYSICAL EXAMINATION: Temperature 97.8, pulse 67, respiratory 18, blood pressure 160/85, pulse ox 98% on room air. GENERAL APPEARANCE: Sitting up, awake. EYES: Pupils equal. Conjunctivae pale. NECK: JVD not raised. Mass not palpable. RESPIRATORY: Effort increased. LUNGS: Diminished breath sounds. CARDIOVASCULAR: First and second sounds normal, no edema. ABDOMEN: Soft, nontender. Liver and spleen not palpable. PSYCHIATRY: Alert and oriented x3. Mood and affect normal. INVESTIGATIONS: White count 7.3, hemoglobin 12.8, potassium 4.5, BUN 30, creatinine 1.21. ProBNP 5740. ASSESSMENT: 1. 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 2. Acute non ST elevation myocardial infarction with coronary artery disease, status post cardiac catheterization for medical management. 3. Stage IV adenocarcinoma of the lung, currently on immunotherapy. 4. Chronic obstructive pulmonary disease. 5. Hypothyroidism. 6. Essential hypertension. 7. Hyperlipidemia. 8. Obstructive sleep apnea. 9. Acute kidney injury probably acute tubular necrosis. Creatinine is down to 1.2. 10.Acute congestive heart failure exacerbation from diastolic dysfunction, EF 60-65 percent from underlying coronary artery disease. 11.Moderate aortic stenosis with sclerosis nonrheumatic. PLAN: Continue current medication and treatment plan. Patient overall feeling better. We will cut back the dose of Solu-Medrol. Follow with Cardiology and Pulmonary. Patient remains on IV Lasix. MMODL / IJN: [id number] /
[2018-12-30] MEDS: ZOLPIDEM 5 MG TAB PO PRN (21:47)
[2018-12-30] MEDS: PRAVASTATIN SODIUM 40 MG TAB PO SCH (21:47)
[2018-12-30] MEDS: TAMSULOSIN 0.4 MG CAP.ER.24H PO SCH (21:47)
[2018-12-30] MEDS: FUROSEMIDE 10 MG/ML 4 ML VIAL IV SCH (21:49)
[2018-12-30] MEDS: FLUoxetine HCL 20 MG CAP PO SCH (21:49)
[2018-12-30] MEDS: FOLIC ACID 1 MG TAB PO SCH (21:49)
[2018-12-30] MEDS: LEVOTHYROXINE 50 MCG TAB PO SCH (21:50)
[2018-12-30] MEDS: methylPREDNISolone SOD SUCCI 40 MG/ML 1 ML VIAL IV SCH (23:11)
[2018-12-31 06:00] LABS: Glucose,Whole Blood 158 mg/dL (75-99)
[2018-12-31 06:14] LABS: Basophils % (A) 0 %; Eosinophils % (A) 0 %; HCT 40.8 % (39.0-53.0); HGB 13.6 gm/dL (13.0-17.5); Lymphocytes # (A) 0.6 k/uL (1.0-4.8); Lymphocytes % (A) 9 %; MCH 29.2 pg (25.0-35.0); MCHC 33.4 g/dL (31.0-37.0); MCV 87.2 fL (80.0-100.0); Mean Platelet Volume 7.3; Monocytes # (A) 0.4 k/uL (0-1.0); Monocytes % (A) 6 %; Neutrophils # (A) 5.5 k/uL (1.3-7.7); Neutrophils % (A) 83 %; Platelet Count 283 k/uL (150-450); RBC 4.68 m/uL (4.30-5.90); RDW 14.5 % (11.5-15.5); WBC 6.7 k/uL (3.8-10.6)
[2018-12-31 06:25] LABS: Calcium 10.1 mg/dL (8.4-10.2); Potassium 3.8 mmol/L (3.5-5.1)
[2018-12-31] MEDS: LEVOTHYROXINE 50 MCG TAB PO SCH (06:34)
[2018-12-31] MEDS: INSULIN ASPART (NovoLOG) 100 UNIT/ML VIAL SQ SCH ×2 (06:34→11:48)
[2018-12-31] MEDS: IPRATROPIUM-ALBUTEROL 3 ML NEB INHALATION SCH ×2 (07:06→10:35)
[2018-12-31] MEDS ORDERED: PANTOPRAZOLE 40 MG TABLET PO SCH (07:30)
[2018-12-31 07:55] VITALS: RESP 16; TEMP 97
[2018-12-31] MEDS: methylPREDNISolone SOD SUCCI 40 MG/ML 1 ML VIAL IV SCH (08:46)
[2018-12-31] MEDS: FAMOTIDINE 20 MG TAB PO SCH (08:47)
[2018-12-31] MEDS: ASPIRIN 325 MG TAB PO SCH (08:47)
[2018-12-31] MEDS: TAMSULOSIN 0.4 MG CAP.ER.24H PO SCH (08:47)
[2018-12-31] MEDS: FUROSEMIDE 10 MG/ML 4 ML VIAL IV SCH (08:47)
[2018-12-31] MEDS: FOLIC ACID 1 MG TAB PO SCH (08:47)
[2018-12-31] MEDS: FLUoxetine HCL 20 MG CAP PO SCH (08:47)
[2018-12-31] MEDS: METOPROLOL TARTRATE 25 MG TAB PO SCH (08:47)
--- NOTE | 2018-12-31 11:18 | P.PN ---
Subjective Progress Note Date: 12/31/18 Principal diagnosis: Shortness of breath This is a pleasant 78-year-old gentleman was known history of coronary artery disease and prior stenting of the LAD, hypertension, dyslipidemia, and history of lung cancer currently on immunotherapy, presented to the hospital with shortness of breath. He was diagnosed with pneumonia and currently he is on antibiotic. Beside that he ruled in for acute coronary syndrome. Because of that he underwent a heart catheterization which revealed intermediate to severe disease without any high grade stenosis. Maximize medical treatment was advised. The echocardiogram showed normal LV function with moderate aortic stenosis. On follow-up with the patient today, December [id number], he is feeling better in terms of shortness of breath. He is off oxygen. Yesterday he was started on Lasix IV. I am going to DC the Lasix IV, start the patient on Lasix by mouth. From the cardiac standpoint, he can be discharged home. Objective - Vital Signs Vital signs: Vital Signs Temp 97.0 F L 12/31/18 07:50 Pulse 65 12/31/18 07:50 Resp 16 12/31/18 07:50 BP 153/89 12/31/18 07:50 Pulse Ox 91 L 12/31/18 07:50 Intake & Output 12/30/18 12/31/18 12/31/18 18:59 06:59 18:59 Intake Total 440 780 240 Output Total 600 1600 Balance -160 -820 240 Weight 94.6 kg Intake: Oral 440 780 240 Output: Urine 600 1600 Other: Voiding Method Urinal # Voids 1 - Constitutional General appearance: Present: no acute distress - Respiratory Respiratory: bilateral: diminished - Cardiovascular Rhythm: regular Heart sounds: normal: S1, S2 Abnormal Heart Sounds: Present: systolic murmur - Labs CBC & Chem 7: 12/31/18 05:56 12/31/18 05:56 Labs: Abnormal Lab Results - Last 24 Hours (Table) 12/30/18 12/30/18 12/31/18 Range/Units 16:21 19:48 05:56 Lymphocytes # 0.6 L (1.0-4.8) k/uL BUN (9-20) mg/dL Glucose (74-99) mg/dL POC Glucose (mg/dL) 163 H 185 H (75-99) mg/dL 12/31/18 12/31/18 Range/Units 05:56 05:59 Lymphocytes # (1.0-4.8) k/uL BUN 34 H (9-20) mg/dL Glucose 162 H (74-99) mg/dL POC Glucose (mg/dL) 158 H (75-99) mg/dL Microbiology - Last 24 Hours (Table) 12/27/18 11:26 Blood Culture - Preliminary Blood No Growth after 72 hours 12/28/18 10:45 Gram Stain - Final Sputum Sputum Culture - Final Assessment and Plan Assessment: Assessment #1 acute non-ST patient myocardial infarction #2 history of CAD and prior stenting #3 history of lung cancer #4 congestive heart failure exacerbation secondary to diastole dysfunction Plan #1 DC Lasix IV and start the patient on Lasix by mouth #2 from the cardiac standpoint he can be discharged home
[2018-12-31 11:28] LABS: Glucose,Whole Blood 138 mg/dL (75-99)
[2018-12-31 11:32] VITALS: BP 169/96; PULSE 58
[2018-12-31] MEDS ORDERED: amLODIPine 5 MG TAB PO SCH (11:45)
[2018-12-31] MEDS: DOXYCYCLINE 100 MG in SODIUM CHLORIDE 0.9% 100 ML IVPB SCH (11:48)
--- NOTE | 2018-12-31 13:22 | XR ---
EXAMINATION TYPE: XR chest 2V DATE OF EXAM: 12/31/2018 COMPARISON: Chest x-ray from yesterday. CT chest from 3 days ago. HISTORY: History of lung cancer and COPD. Difficulty in breathing. TECHNIQUE: Frontal and lateral views of the chest are obtained. FINDINGS: There is chronic painful changes with persistent left basilar opacity. Some improved aera tion left midlung is felt present. The cardiac silhouette size is stable and enlarged with atheroscle rotic aorta. Surgical change of bilateral shoulders is partially imaged. IMPRESSION: Cardiomegaly and chronic parenchymal changes with persistent left lower lung infiltrate and/or atelectasis all felt stable. Some resolving left midlung infiltrate and/or atelectasis is felt present.
--- NOTE | 2018-12-31 13:32 | P.PN ---
Subjective Progress Note Date: 12/31/18 Principal diagnosis: Acute hypoxemic respiratory failure with development of bilateral pulmonary infiltrates left greater than the right, rule out pneumonia/infectious pneumonia versus interstitial lung disease related to immunotherapy. Today's evaluation of 12/30/2018 the patient is doing well. The patient on room air oxygen. Pulse oxing 94-95% PEEP chest x-ray still showing breath and pulmonary infiltrates more so in the left perihilar area. Dr. Ortez so these abnormalities and the patient was given a dose of Lasix 40 mg IV push and the patient was started on IV Lasix 40 mg every 12 hours. We'll monitor the electrolytes. We'll obtain a BMP level. 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 No new complaints otherwise for now. His overall improved. Echocardiogram showed a moderate degree of aortic stenosis with a normal LV function. No fever. No chills. No other significant events overnight. He is sitting up on a chair and is calm and comfortable. On 12/31/2018 patient seen in follow-up on selective care unit, he is awake and alert, he is fully dressed, he is sitting up in the recliner getting ready to be discharged home. He is on room air. His pulse ox is 92%, patient is afebrile, today's follow-up chest x-ray shows chronic parenchymal changes with persistent left lower lung infiltrate are stable, and a resolving left mid lung infiltrate. Likely patient is completely asymptomatic, no complains of dyspnea, or chest pain, no fever or chills. Blood and sputum cultures have been negative. Patient has been ambulating, tolerating evolution well, been treated with a com bination of Rocephin, and doxycycline, IV steroids, and IV Lasix. On today's exam patient is calm and comfortable, sitting up in the recliner, no cough or congestion, there is minimal crackles at bilateral bases, no rhonchi or wheezing. Objective - Vital Signs Vital signs: Vital Signs Temp 97.0 F L 12/31/18 11:28 Pulse 58 L 12/31/18 11:28 Resp 16 12/31/18 11:28 BP 169/96 12/31/18 11:28 Pulse Ox 92 L 12/31/18 11:28 Intake & Output 12/30/18 12/31/1812/31/19 18:59 06:59 18:59 Intake Total 440 780 580 Output Total 600 1600 Balance -160 -820 580 Weight 94.6 kg Intake: Intake, IV Titration 100 Amount Doxycycline 100 mg In 100 Sodium Chloride 0.9% 100 ml @ 100 mls/hr IVPB Q12H [facility] Rx#:[id number] Oral 440 780 480 Output: Urine 600 1600 Other: Voiding Method Urinal # Voids 1 - Exam GENERAL EXAM: Alert, pleasant, 78-year-old white male, comfortable in no apparent distress. HEAD: Normocephalic/atraumatic. EYES: Normal reaction of pupils, equal size. Conjunctiva pink, sclera white. NOSE: Clear with pink turbinates. THROAT: No erythema or exudates. NECK: No masses, no JVD, no thyroid enlargement, no adenopathy. CHEST: No chest wall deformity. Symmetrical expansion. LUNGS: Equal air entry with minimal crackles at the bases CVS: Regular rate and rhythm, normal S1 and S2, no gallops, no murmurs, no rubs ABDOMEN: Soft, nontender. No hepatosplenomegaly, normal bowel sounds, no guarding or rigidity. EXTREMITIES: No clubbing, no edema, no cyanosis, 2+ pulses and upper and lower extremities. MUSCULOSKELETAL: Muscle strength and tone normal. SPINE: No scoliosis or deformity SKIN: No rashes CENTRAL NERVOUS SYSTEM: Alert and oriented -3. No focal deficits, tone is no rmal in all 4 extremities. PSYCHIATRIC: Alert and oriented -3. Appropriate affect. Intact judgment and insight. - Labs CBC & Chem 7: 12/31/18 05:56 12/31/18 05:56 Labs: Abnormal Lab Results - Last 24 Hours (Table) 12/30/18 12/30/18 12/31/18 Range/Units 16:21 19:48 05:56 Lymphocytes # 0.6 L (1.0-4.8) k/uL BUN (9-20) mg/dL Glucose (74-99) mg/dL POC Glucose (mg/dL) 163 H 185 H (75-99) mg/dL 12/31/18 12/31/18 12/31/18 Range/Units 05:56 05:59 11:23 Lymphocytes # (1.0-4.8) k/uL BUN 34 H (9-20) mg/dL Glucose 162 H (74-99) mg/dL POC Glucose (mg/dL) 158 H 138 H (75-99) mg/dL Microbiology - Last 24 Hours (Table) 12/27/18 11:26 Blood Culture - Preliminary Blood No Growth after 72 hours Assessment and Plan Plan: Assessment: 1 acute hypoxic respiratory failure with development of bilateral pulmonary infiltrates left more than right. Consider pneumonia/infectious pneumonia. Consider interstitial lung disease related to immunotherapy. Cancer progression is felt to be less likely knowing that there has been significant progression the pulmonary infiltrates over the past 4 weeks. Heart failure is also felt to be less likely. 2 coronary artery disease with a component of non-STEMI and the patient is currently on IV heparin chest pain-free. Cardiac catheterization today revealed intermediate to severe disease involving the right coronary artery and first ramona gonal branch of the LAD.. The plan is for medical therapy unless the patient has any further chest discomfort. 3 stage IV adenocarcinoma of the lung with previous history of malignant pleural effusion, currently on immunotherapy. 4 COPD 5 remote history of present cancer status post radiation therapy 6 no history of coronary artery disease with previous coronary intervention and stenting 7 hypothyroidism 8 hypertension 9 hyperlipidemia 10 obstructive sleep apnea 11 acute kidney injury, recovered Plan: Follow-up chest x-ray shows resolving of the left mid lung infiltrate, clinically patient is asymptomatic, no fever or chills, no cough or congestion, no acute events overnight, patient is tolerating ambulation, cultures have been negative. From pulmonary perspective patient is stable for discharge home today on oral course of antibiotics, prednisone taper, breathing treatments, patient will need follow-up with Dr. Kenney in the office in 7-10 days I performed a history & physical examination of the patient and discussed their management with my nurse practitioner, Ladan Awad. I reviewed the nurse practitioner's note and agree with the documented findings and plan of care. Lung sounds are positive for minimal bibasilar rales. The findings and the impression was discussed with the patient. I attest to the documentation by the nurse practitioner. Time with Patient: Less than 30
[2019-01-01] MEDS ORDERED: FUROSEMIDE 40 MG TAB PO SCH (09:00)
--- NOTE | 2019-01-01 10:10 | DS ---
DISCHARGE SUMMARY DATE OF ADMISSION: 12/26/2018 DATE OF DISCHARGE: 12/31/2018 FINAL DIAGNOSES: 1. Acute non-ST elevation myocardial infarction with coronary artery disease, status post cardiac cath for medical management. 2. 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 3. Possible pneumonia. 4. Stage IV adenocarcinoma of the lung, currently on immunotherapy. 5. Chronic obstructive pulmonary disease. 6. Hypothyroidism. 7. Essential hypertension. 8. Hyperlipidemia. 9. Obstructive sleep apnea. 10.Acute kidney injury, probably from acute tubular necrosis. 11.Acute congestive heart failure exacerbation from diastolic dysfunction, ejection fraction 60% to 65% from underlying coronary artery disease. 12.Moderate aortic stenosis and sclerosis, nonrheumatic. CONSULTATIONS: Dr. Sigala and colleagues from Pulmonary; Dr. Kong and colleagues from Cardiology; Dr. Medellin from Oncology. HOSPITAL COURSE: This patient presented with chest pain, did undergo a cardiac catheterization, found to have intermediate to severe disease involving the right coronary artery and first diagonal branch of the LAD. It was decided to manage the patient medically. The patient did also have a V/Q scan that was low probability for PE. The patient also did have a chest CT scan that showed increasing infiltrate/consolidation. It was Dr. 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 Antibiotics were also given since pneumonia could not be ruled out. The patient did have a 2-D echocardiogram that showed EF of 60% to 65%, moderate aortic stenosis with sclerosis. The patient is feeling better today, tolerating a diet, up and about. On examination, temperature 97, pulse 58, respiration 16, blood pressure 153/89, pulse ox 92% in room air. LUNGS: Decreased breath sounds. CARDIOVASCULAR: First and second sounds normal. INVESTIGATIONS: Potassium 3.8. BUN 34, creatinine 1.18 down from 1.74. DISCHARGE MEDICATIONS: 1. Prozac 20 mg a day. 2. Synthroid 50 mcg a day. 3. Singulair 10 mg q.h.s. 4. Prilosec 40 mg a day. 5. Pravachol 40 mg q.h.s. 6. Flomax 0.4 mg a day. 7. Folic acid 1 mg a day. 8. Norvasc 5 mg a day. 9. Advair 250/50 one puff b.i.d. 10.Aspirin 81 mg a day. 11.Lasix 40 mg a day. 12.DuoNeb t.i.d. 13.Lopressor 25 mg b.i.d. 14.Bactrim DS 1 tablet p.o. q.12, ten tablets. 15.Prednisone taper. Follow up with Dr. Sheppard on 01/11/2019; Dr. Kong on 01/10/2019; Dr. Roxie Melendez in 3 to 5 days; Dr. Rutherford on 01/02/2019. MMODL / IJN: [id number] /
== END 2018-12-31 13:35 | disposition home or self-care (01) | DRG 280 ==
LOC: EC 20:22 → 3SCARD 22:11
PROVIDERS: ADMIT Hospitalist; ATTEND Hospitalist
PROC: B2111ZZ Fluoroscopy of Multiple Coronary Arteries using Low Osmolar Contrast (ICD-10-PCS; 2018-12-28)
PROC: 4A023N7 Measurement of Cardiac Sampling and Pressure, Left Heart, Percutaneous Approach (ICD-10-PCS; principal; 2018-12-28 09:00)
DX: I21.4 Non-ST elevation (NSTEMI) myocardial infarction (principal); J96.01 Acute respiratory failure with hypoxia; N17.0 Acute kidney failure with tubular necrosis; I50.33 Acute on chronic diastolic (congestive) heart failure; J18.9 Pneumonia, unspecified organism; J44.1 Chronic obstructive pulmonary disease with (acute) exacerbation; I13.0 Hypertensive heart and chronic kidney disease with heart failure and stage 1 through stage 4 chronic kidney disease, or unspecified chronic kidney disease; J44.0 Chronic obstructive pulmonary disease with (acute) lower respiratory infection; C34.11 Malignant neoplasm of upper lobe, right bronchus or lung; E86.0 Dehydration; B02.9 Zoster without complications; I35.0 Nonrheumatic aortic (valve) stenosis; N18.3 Chronic kidney disease, stage 3 (moderate); M19.90 Unspecified osteoarthritis, unspecified site; K21.9 Gastro-esophageal reflux disease without esophagitis; G47.33 Obstructive sleep apnea (adult) (pediatric); E78.5 Hyperlipidemia, unspecified; F17.200 Nicotine dependence, unspecified, uncomplicated; I25.10 Atherosclerotic heart disease of native coronary artery without angina pectoris; R00.0 Tachycardia, unspecified; F32.9 Major depressive disorder, single episode, unspecified; E03.9 Hypothyroidism, unspecified; J70.4 Drug-induced interstitial lung disorders, unspecified; T45.1X5A Adverse effect of antineoplastic and immunosuppressive drugs, initial encounter; Z79.899 Other long term (current) drug therapy; Z79.890 Hormone replacement therapy; Z85.46 Personal history of malignant neoplasm of prostate; Z85.118 Personal history of other malignant neoplasm of bronchus and lung; Z92.3 Personal history of irradiation; Z92.21 Personal history of antineoplastic chemotherapy; Z87.01 Personal history of pneumonia (recurrent); Z90.49 Acquired absence of other specified parts of digestive tract; Z96.611 Presence of right artificial shoulder joint; Z96.612 Presence of left artificial shoulder joint; Z96.653 Presence of artificial knee joint, bilateral; Z98.42 Cataract extraction status, left eye; Z95.5 Presence of coronary angioplasty implant and graft; Z80.1 Family history of malignant neoplasm of trachea, bronchus and lung
CPT/HCPCS: 36415; 71045; 71046; 71250; 78582; 80048; 80053; 80061; 83735; 83880; 84145; 84484; 85025; 85379; 85610; 85730; 87040; 87070; 87205; 93005; 93306; 93458; 94640; 94644; 94760; 96361; 96365; 96366; 96375; 96376; 99291

== ENCOUNTER 2019-01-07 10:53 | Day surgery (SDC) | payer MEDICARE ==
[2019-01-03 15:28] VITALS: BMI 28.5
[~2019-01-07 10:53] MED LIST changes: -LACTATED RINGERS 1,000 ML IV ONE; +LIDOCAINE 1% 20 ML VIAL (10MG/ML) FOR IV START INTRADERMA PRN; -LIDOCAINE 2% (PF) 20 MG/ML 10 ML AMP INHALATION ONE; +LIDOCAINE 2% (PF) 20 MG/ML 5 ML VIAL INHALATION ONE; -LIDOCAINE VISCOUS 2% 15 ML CUP MUCOUS MEM ONE; +LIDOCAINE VISCOUS 300 MG/15 ML CUP MUCOUS MEM ONE; +SODIUM CHLORIDE 0.9% 1,000 ML IV SCH
[2019-01-07 11:15] VITALS: TEMP 96.7
[2019-01-07 11:37] LABS: Glucose,Whole Blood 74 mg/dL (75-99)
[2019-01-07] MEDS ORDERED: LIDOCAINE 1% INJ 10MG/ML (20 ML MDV) ONE (12:30)
[2019-01-07] MEDS ORDERED: PROPOFOL 10 MG/ML 20 ML VIAL IV ONE (12:30)
[2019-01-07] MEDS ORDERED: LIDOCAINE 2% INJ 20 MG/ML INTRATRACH ONE (12:46)
--- NOTE | 2019-01-07 12:53 | P.PCN ---
Date of Procedure: 01/07/19 Preoperative Diagnosis: Metastatic adenocarcinoma of the lung, rule out LLL pneumonia Postoperative Diagnosis: Metastatic adenocarcinoma of the lung, rule out LLL pneumonia Procedure(s) Performed: Flexible bronchoscopy, LLL bronchioalveolar lavage Anesthesia: MAC Surgeon: Alissa Siagla Pathology: other Condition: stable Disposition: same day Operative Findings: This is a flexible bronchoscopy done under conscious sedation. The patient is known history of metastatic adenocarcinoma of the lung. He was hospitalized for acute respiratory failure and acute hypoxic respiratory failure, possibilities include l pneumonia versus ILD secondary to immunotherapy. For that reason, a flexible bronchoscopy was done with the bronchioloalveolar lavage of the left lower lobe This procedure was done under conscious sedation. After achieving adequate sedation the flexible bronchoscope was inserted through the left nostril and was advanced to the upper airway. Examination of the posterior oropharynx, larynx, epiglottis and vocal cords was done and these airways were quite patent within normal limits. Epiglottis was sharp in the midline. The arytenoids and the vallecula and the cords were all visualized and they were all within normal limits. A total of 2 mL of 1% lidocaine was applied to the vocal cords and following that the bronchoscope was advanced into the upper trachea. 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 Some looseness for secretions were obtained within the patient's airway. At this point, an airway inspection was completed and the visualized airways included the trachea, bilateral mainstem br onchi, right upper lobe bronchus, right middle lobe bronchus, right lower lobe bronchus, left upper lobe bronchus and left lower lobe bronchus along with various segments and subsegments. These airways were quite patient. Symmetric changes in the mucosa of the left upper and left lower lobe bronchi was seen. No endobronchial tumors. Bronchoscope was wedged in the left lower lobe and the bronchioloalveolar lavage was done. A total of 80 mL of fluid was infused and 35 mL was suctioned back. The patient encounter some coughing following the procedure. Bronchoscope was removed. The samples will be sent for microbial analysis and cultures. The patient will be transferred recovery in stable condition. The oxygenation remained above 90% throughout.
[2019-01-07 13:06] VITALS: RESP 18
[2019-01-07 13:20] VITALS: BP 112/64; PULSE 57
== END 2019-01-07 13:35 | disposition home or self-care (01) ==
LOC: ORWHC2ENDO 10:53
PROVIDERS: ATTEND Internal Medicine Critical Care Medicine
DX: C78.00 Secondary malignant neoplasm of unspecified lung (principal); J44.9 Chronic obstructive pulmonary disease, unspecified
CPT/HCPCS: 94640; 87798 ×3; 87496; 87498; 87529; 87252; 87502; 87634; 87070; 87205; 87116; 87102; 87206; 31624; J2001 ×3; J2704

== ENCOUNTER → 2019-01-16 | Outpatient (CLI) | payer MEDICARE ==
--- NOTE | 2019-01-16 15:52 | XR ---
EXAMINATION TYPE: XR chest 2V DATE OF EXAM: 01/16/2019 COMPARISON: 12/31/2018 HISTORY: Congestion, known lung cancer TECHNIQUE: Frontal and lateral views of the chest are obtained. FINDINGS: There is increasing prominence of the left hilum and worsening left basilar consolidation with bronchograms seen. Remainder the lungs are clear and hyperaerated with underlying emphysematous change and flattening of the diaphragms. Mild multilevel degenerative changes of the spine are seen. Reverse left humeral arthroplasty and right humeral arthroplasty are partially visualized. Eventratio n of the right hemidiaphragm is noted. Cardiomediastinal silhouette is mildly enlarged. IMPRESSION: Continued worsening of the left perihilar prominence and left lower lobe airspace diseas e. Bronchoscopy could be considered.
== END | disposition home or self-care (01) ==
LOC: RADXRMAIN 14:53
PROVIDERS: ATTEND Internal Medicine Hematology & Oncology
DX: J98.4 Other disorders of lung (principal); C34.11 Malignant neoplasm of upper lobe, right bronchus or lung; J44.9 Chronic obstructive pulmonary disease, unspecified; I10 Essential (primary) hypertension; E78.5 Hyperlipidemia, unspecified
CPT/HCPCS: 71046

== ENCOUNTER 2019-02-04 09:06 | Inpatient (IN) | payer MEDICARE ==
[2019-02-04] MEDS ORDERED: PANTOPRAZOLE 40 MG/10 ML VIAL IVP STA (09:48)
[2019-02-04] MEDS ORDERED: NALOXONE 0.4 MG/ML 1 ML VIAL IV PRN (09:57)
--- NOTE | 2019-02-04 09:57 | ED ---
General Adult HPI - General Chief complaint: GI Bleed Stated complaint: GI bleed Time Seen by Provider: 02/04/19 09:21 Source: patient, RN notes reviewed Mode of arrival: wheelchair Limitations: no limitations - History of Present Illness Initial comments: Patient is a pleasant 78-year-old male presenting to the emergency Department with concerns for bleeding. Patient has had some lightheadedness over the past week. Patient is a known stage IV lung cancer patient and does receive chemotherapy with Dr. Rutherford. Last was approximately 10 days ago. Patient started having black stools with occasional bloody stools yesterday. Patient has some abdominal cramping. No abdominal discomfort or pain at this time. No nausea vomiting. Patient has been fatigued. Patient has experienced exertional dyspnea today. Patient did have outpatient blood work done with hemoglobin dropping from approximately 14-9 over the past 10 days or so. This was done by Dr. Rutherford's office. - Related Data Home Medications Medication Instructions Recorded Confirmed FLUoxetine HCL [PROzac] 20 mg PO DAILY 08/05/14 02/04/19 Levothyroxine Sodium [Synthroid] 50 mcg PO DAILY 08/05/14 02/04/19 Montelukast [Singulair] 10 mg PO HS 08/05/14 02/04/19 Omeprazole [PriLOSEC] 40 mg PO DAILY 08/05/14 02/04/19 Pravastatin Sodium [Pravachol] 40 mg PO HS 08/05/14 02/04/19 Tamsulosin [Flomax] 0.4 mg PO DAILY 08/05/14 02/04/19 Folic Acid 1 mg PO DAILY 02/12/18 02/04/19 Fluticasone/Salmeterol [Advair 1 puff INHALATION RT-BID 12/26/18 02/04/19 250-50 Diskus] Metoprolol Tartrate 12.5 mg PO BID 01/03/19 02/04/19 Ipratropium-Albuterol Nebulize 3 ml INHALATION RT-TID 02/04/19 02/04/19 [Duoneb 0.5 mg-3 mg/3 ml Soln] Previous Rx's Medication Instructions Recorded Aspirin 81 mg PO DAILY #30 chewable 12/31/18 Furosemide [Lasix] 40 mg PO DAILY #30 tab 12/31/18 Allergies Allergy/AdvReac Type Severity Reaction Status Date / Time No Known Allergies Allergy Verified 02/04/19 10:15 Review of Systems ROS Statement: Those systems with pertinent positive or pertinent negative responses have been documented in the HPI. ROS Other: All systems not noted in ROS Statement are negative. Constitutional: Denies: fever Eyes: Denies: eye pain ENT: Denies: ear pain Respiratory: Reports: as per HPI. 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, history of malignant pleural effusion, COPD, history of prostate cancer treated by radiation therapy back in 2009, hypertension, COPD, obstructive sleep apnea, coronary artery disease, severe degenerative arthritis, acid reflux, history of small bowel obstruction requiring surgery, chronic back pain, remote history of shingles back in the 70s, history of diverticulosis, hyperlipidemia, hypertension History of Any Multi-Drug Resistant Organisms: None Reported Past Surgical History: Bowel Resection, Heart Catheterization With Stent, Orthopedic Surgery, Tonsillectomy Additional Past Surgical History / Comment(s): SOL EAR SX,SINUS SX X2, GERD/HIATAL HERNIA SURGERY, BOWEL RESECTON D/T RUPTURE WITH COLOSTOMY-SINCE REVERSED, SOL SHOULDER REPLACEMENT, SOL KNEE REPLACMENT., left cataract removed Past Anesthesia/Blood Transfusion Reactions: No Reported Reaction, Motion Sickness Date of Last Stent Placement:: 2005 Past Psychological History: Depression Smoking Status: Former smoker Past Alcohol Use History: None Reported Past Drug Use History: None Reported - Past Family History Mother Family Medical History: Cancer Additional Family Medical History / Comment(s): MULTIPLE MEYLOMA Father Family Medical History: Cancer Additional Family Medical History / Comment(s): LUNG CANCER Sister(s) Family Medical History: Cancer Son(s) Family Medical History: Cancer General Exam Limitations: no limitations General appearance: alert, in no apparent distress Head exam: Present: atraumatic Eye exam: Present: normal appearance, PERRL ENT exam: Present: normal oropharynx Neck exam: Present: normal inspection Respiratory exam: Present: normal lung sounds bilaterally Cardiovascular Exam: Present: regular rate, normal rhythm GI/Abdominal exam: Present: soft. Absent: distended, tenderness Extremities exam: Present: normal inspection. Absent: pedal edema, calf tenderness Neurological exam: Present: alert Psychiatric exam: Present: normal affect, normal mood Skin exam: Present: normal color Course Vital Signs 02/04/19 09:09 Temperature 98.1 F Pulse Rate 86 Respiratory 22 Rate Blood Pressure 121/81 O2 Sat by Pulse 97 Oximetry Medical Decision Making - Medical Decision Making Patient and family are updated on plan. Dr. Mina has been paged for admission, covering for Dr. Melendez. Consults will be placed with both GI and oncology. - Lab Data Result diagrams: 02/04/19 09:40 02/04/19 09:40 Lab Results 02/04/19 02/04/19 02/04/19 Range/Units 09:40 09:40 09:40 WBC 2.6 L (3.8-10.6) k/uL RBC 3.06 L (4.30-5.90) m/uL Hgb 8.9 L D (13.0-17.5) gm/dL Hct 26.5 L (39.0-53.0) % MCV 86.7 (80.0-100.0) fL MCH 29.0 (25.0-35.0) pg MCHC 33.4 (31.0-37.0) g/dL RDW 16.1 H (11.5-15.5) % Plt Count 183 (150-450) k/uL Neutrophils % 59 % Lymphocytes % 23 % Monocytes % 12 % Eosinophils % 2 % Basophils % 1 % Neutrophils # 1.5 (1.3-7.7) k/uL Lymphocytes # 0.6 L (1.0-4.8) k/uL Monocytes # 0.3 (0-1.0) k/uL Eosinophils # 0.1 (0-0.7) k/uL Basophils # 0.0 (0-0.2) k/uL Anisocytosis Slight PT 9.8 (9.0-12.0) sec INR 0.9 (<1.2) APTT 23.3 (22.0-30.0) sec Sodium 139 (137-145) mmol/L Potassium 4.1 (3.5-5.1) mmol/L Chloride 108 H (98-107) mmol/L Carbon Dioxide 24 (22-30) mmol/L Anion Gap 7 mmol/L BUN 27 H (9-20) mg/dL Creatinine 1.36 H (0.66-1.25) mg/dL Est GFR (CKD-EPI)AfAm 56 (>60 ml/min/1.73 sqM) Est GFR (CKD-EPI)NonAf 49 (>60 ml/min/1.73 sqM) Glucose 110 H (74-99) mg/dL Calcium 9.1 (8.4-10.2) mg/dL Total Bilirubin 0.2 (0.2-1.3) mg/dL AST 20 (17-59) U/L ALT 29 (21-72) U/L Alkaline Phosphatase 78 (38-126) U/L Total Protein 5.7 L (6.3-8.2) g/dL Albumin 3.3 L (3.5-5.0) g/dL Disposition Clinical Impression: Lower gastrointestinal hemorrhage Disposition: ADMITTED IP TO THIS HOSP Is patient prescribed a controlled substance at d/c from ED?: No Decision Time: 09:57
[2019-02-04 09:58] LABS: Anisocytosis Slight; Basophils % (A) 1 %; Eosinophils # (A) 0.1 k/uL (0-0.7); Eosinophils % (A) 2 %; HCT 26.5 % (39.0-53.0); Lymphocytes # (A) 0.6 k/uL (1.0-4.8); Lymphocytes % (A) 23 %; MCHC 33.4 g/dL (31.0-37.0); MCV 86.7 fL (80.0-100.0); Mean Platelet Volume 7.5; Monocytes # (A) 0.3 k/uL (0-1.0); Monocytes % (A) 12 %; Neutrophils # (A) 1.5 k/uL (1.3-7.7); Neutrophils % (A) 59 %; Platelet Count 183 k/uL (150-450); RBC 3.06 m/uL (4.30-5.90); RDW 16.1 % (11.5-15.5); WBC 2.6 k/uL (3.8-10.6)
[2019-02-04 10:09] LABS: HGB 8.9 gm/dL (13.0-17.5)
[2019-02-04 10:10] LABS: Albumin 3.3 g/dL (3.5-5.0); Calcium 9.1 mg/dL (8.4-10.2); Potassium 4.1 mmol/L (3.5-5.1); Total Bilirubin 0.2 mg/dL (0.2-1.3); Total Protein 5.7 g/dL (6.3-8.2)
[2019-02-04 10:13] LABS: INR 0.9 (<1.2); Partial Thromboplastin Time 23.3 sec (22.0-30.0); Prothrombin Time 9.8 sec (9.0-12.0)
[2019-02-04] MEDS: PANTOPRAZOLE 40 MG/10 ML VIAL IV SCH ×2 (11:23→20:30)
[2019-02-04] MEDS: SODIUM CHLORIDE 0.9% 1,000 ML IV SCH (11:35)
[2019-02-04 12:19] VITALS: BMI 28.0
[2019-02-04 17:13] LABS: Anisocytosis Slight; Basophils % (A) 1 %; Eosinophils # (A) 0.1 k/uL (0-0.7); Eosinophils % (A) 2 %; HCT 25.5 % (39.0-53.0); HGB 8.9 gm/dL (13.0-17.5); Lymphocytes # (A) 0.7 k/uL (1.0-4.8); Lymphocytes % (A) 25 %; MCHC 35.1 g/dL (31.0-37.0); MCV 85.6 fL (80.0-100.0); Mean Platelet Volume 7.9; Monocytes # (A) 0.4 k/uL (0-1.0); Monocytes % (A) 14 %; Neutrophils # (A) 1.6 k/uL (1.3-7.7); Neutrophils % (A) 54 %; Platelet Count 146 k/uL (150-450); RBC 2.97 m/uL (4.30-5.90); RDW 19.2 % (11.5-15.5); WBC 2.9 k/uL (3.8-10.6)
[2019-02-04] MEDS: METOPROLOL TARTRATE 12.5 MG TAB PO SCH (21:51)
[2019-02-04] MEDS: MONTELUKAST 10 MG TAB PO SCH (21:51)
--- NOTE | 2019-02-04 22:31 | HP ---
HISTORY AND PHYSICAL DATE OF ADMISSION: February 04, 2019. DATE OF SERVICE: February 04, 2019. PRESENTING COMPLAINT: Bloody stools. This is a pleasant 78-year-old patient who follows with Dr. Roxie Melendez. Her maritime engineer is Dr. Kong and oncologist is Dr. Rutherford. Chronic stable medical conditions include acute elevation myocardial infarction in December of this year, status post cardiac cath for medical management, stage IV adenocarcinoma of the lung on immunotherapy, COPD, hypothyroid, hypertension, hyperlipidemia, obstructive sleep apnea, congestive heart failure with EF 60-65 percent, moderate aortic stenosis and sclerosis. Last chemotherapy was about 11 days ago. The patient does take aspirin at home at home. On Monday that is 3 days ago, the patient noticed some fresh blood and dark stools. The patient became dizzy, lightheaded. The patient just decided patient to wait and watch. Yesterday he had again dark stools and some fresh blood and then finally decided to come in to the ER. No abdominal pain. Patient does take aspirin at home. The patient has had prior bowel surgeries including a colostomy and also small bowel surgery. The patient also had hiatal hernia surgery. It failed initially. Second was done at [facility]. The patient just does feel weak, tired and rundown. REVIEW OF SYSTEMS: CONSTITUTIONAL: Tired. HEENT: Decreased hearing with hearing aid. RESPIRATORY: Short of breath. CARDIOVASCULAR: No chest pain. GASTROINTESTINAL as above. No abdominal pain. GENITOURINARY: None. MUSCULOSKELETAL: Pain in the joints. DERMATOLOGICAL, HEMATOLOGIC, LYMPHATICS: none. PSYCHIATRY none. NEUROLOGICAL: None. PAST MEDICAL HISTORY: Coronary artery disease with stent, congestive heart failure, diastolic dysfunction, EF 50-55 percent, COPD, GERD, hypertension, hyperlipidemia, primary osteoarthritis, obstructive sleep apnea, lung adenocarcinoma with malignant pleural effusion, currently getting chemotherapy, last 1 about 10 days ago, diverticulosis, small bowel obstruction, resection and colostomy with reversal of the same, prostate cancer, radiation treatment, skin cancer removed, face hypothyroid and acute OH 5 weeks ago. PAST SURGICAL HISTORY: Bowel resection, cardiac cath with stent, last stent was 2006, bilateral reconstructive ear surgery and gland removed on the jaw, bowel resection due to rupture with colostomy that was reversed, left cataract removed, Grabiel fundoplasty, bilateral total knee, shoulder, left knee arthroscopy, EGD, colonoscopy, prostate biopsy, bilateral excision, gynecomastia, skin cancer removed. SOCIAL HISTORY: . Started smoking at the age of 14. Smoked until age of 81. Alcohol none. Retired. FAMILY HISTORY: Sister had rectal cancer. HOME MEDICATIONS: 1. Pravachol 40 mg q.h.s. 2. Singulair 10 mg q.h.s. 3. Aspirin 81 mg p.o. daily. 4. Flomax 0.4 mg p.o. daily. 5. Prilosec 40 mg p.o. daily. 6. Metoprolol 12.5 p.o. b.i.d. 7. Synthroid 50 mcg a day. 8. DuoNeb t.i.d. 9. Lasix 40 mg a day. 10.Folic acid 1 mg a day. 11.Advair 250/50 one puff b.i.d. 12.Prozac 20 mg p.o. daily. ALLERGIES: None. PHYSICAL EXAMINATION: VITAL SIGNS: Vital signs on presentation: Temperature 97, pulse 65, respiration 16, blood pressure 143/89, pulse 91% on room air. GENERAL APPEARANCE: Average built, lying in bed, tired-appearing. EYES: Pupils equal. Conjunctivae pale. HEENT: External appearance of nose and ears normal. Oral cavity normal. Decreased hearing. Hearing aids. NECK: JVD unable to assess. Mass not palpable. RESPIRATORY: Effort normal. LUNGS: Diminished breath sounds. CARDIOVASCULAR: 1st and 2nd sounds no edema. ABDOMEN: Multiple scar tissues. No tenderness. Liver and spleen not palpable. LYMPHATICS: No lymph nodes palpable in the neck and axilla. PSYCHIATRY: Alert and oriented x3. Mood and affect normal. NEUROLOGICAL: Pupils equal. Cranial nerves grossly intact. Power and sensation grossly intact. INVESTIGATIONS: White count 2.6, hemoglobin 8.9, hemoglobin was 13.6 on December 31, 2018, potassium 4.1, BUN 27, creatinine 1.36. It was 34/1.18 on December 31, 2018. ASSESSMENT: 1. Acute severe blood loss anemia from gastrointestinal bleed. The patient is on aspirin and prior history of Grabiel fundoplication. 2. Coronary artery disease with recent acute non ST elevation myocardial infarction that was managed medically status post cardiac cath. 3. Stage IV adenocarcinoma of the lung on immunotherapy. 4. Chronic obstructive pulmonary disease in an ex-smoker. 5. Hypothyroidism. 6. Essential hypertension. 7. Hyperlipidemia. 8. Obstructive sleep apnea. 9. Chronic congestive heart failure from diastolic dysfunction. Ejection fraction 50- 65%, from underlying coronary artery disease. 10.Moderate aortic stenosis and sclerosis, nonrheumatic. PLAN: Home medications will be resumed. Aspirin has been held. The patient is put on IV PPI. Will consult Dr. Pineda given the history of hiatal hernia with a view to EGD. Care was discussed with the patient. Questions were answered. Copy to Dr. Roxie Melendez. MMBIRDIEL / IJN: [id number] /
[2019-02-05] MEDS: SODIUM CHLORIDE 0.9% 1,000 ML IV SCH ×2 (00:20→10:46)
[2019-02-05] MEDS ORDERED: CALCIUM CARBONATE 500 MG CHEWABLE PO PRN (03:37)
[2019-02-05] MEDS: LEVOTHYROXINE 50 MCG TAB PO SCH (04:29)
[2019-02-05 07:36] LABS: Anisocytosis Slight; Basophils % (A) 1 %; Eosinophils # (A) 0.1 k/uL (0-0.7); Eosinophils % (A) 3 %; HGB 9.3 gm/dL (13.0-17.5); Lymphocytes # (A) 0.5 k/uL (1.0-4.8); Lymphocytes % (A) 23 %; MCH 28.8 pg (25.0-35.0); MCV 89.8 fL (80.0-100.0); Mean Platelet Volume 7.2; Monocytes # (A) 0.3 k/uL (0-1.0); Monocytes % (A) 13 %; Neutrophils # (A) 1.2 k/uL (1.3-7.7); Neutrophils % (A) 56 %; Platelet Count 175 k/uL (150-450); RBC 3.22 m/uL (4.30-5.90); RDW 16.9 % (11.5-15.5); WBC 2.2 k/uL (3.8-10.6)
[2019-02-05 08:00] LABS: Calcium 9.3 mg/dL (8.4-10.2); Potassium 4.3 mmol/L (3.5-5.1)
[2019-02-05] MEDS: PANTOPRAZOLE 40 MG/10 ML VIAL IV SCH ×2 (09:04→20:28)
[2019-02-05] MEDS: FLUoxetine HCL 20 MG CAP PO SCH (09:04)
[2019-02-05] MEDS: FOLIC ACID 1 MG TAB PO SCH (09:04)
[2019-02-05] MEDS: METOPROLOL TARTRATE 12.5 MG TAB PO SCH ×2 (09:04→20:28)
[2019-02-05] MEDS: TAMSULOSIN 0.4 MG CAP.ER.24H PO SCH (09:04)
[2019-02-05] MEDS: SYMBICORT 80-4.5 MCG INHALER INHALATION SCH ×2 (09:42→20:56)
[2019-02-05] MEDS: IPRATROPIUM-ALBUTEROL 3 ML NEB INHALATION SCH ×3 (09:42→20:56)
--- NOTE | 2019-02-05 12:11 | P.GSCN ---
History of Present Illness Consult date: 02/05/19 Reason for Consult: GI bleed Requesting physician: Tres Mina History of present illness: CHIEF COMPLAINT: GI bleeding HISTORY OF PRESENT ILLNESS: 78-year-old male who is currently undergoing chemotherapy secondary to adenocarcinoma of the lung. Patient report s his last chemotherapy was approximately 11 days ago. He states about 3 days after his chemotherapy began having nonbloody diarrhea. [place] had a dark tarry stool with some bright red blood. He reports on Monday he had 5-6 episodes of dark stools with areas of bright red blood. He reports fatigue, lightheadedness, shortness of breath with exertion, and decreased endurance. He denies nausea. Patient denies the use of anticoagulation. He is on baby aspirin daily. He has not taken aspirin since Monday. He reports he was taking Plavix daily but that was stopped approximately 3 years ago. He denies history of ulcers. He has a history of GERD and has been taking omeprazole 20 mg daily at home. Patient reports his last colonoscopy was approximately 4 years ago and was normal to his knowledge. P AST MEDICAL HISTORY: See list. PAST SURGICAL HISTORY: Reports history of perforated colon requiring bowel resection and colostomy and eventual reversal of colostomy. Reports history of Demetra fundoplication. Patient states first surgery did not take and patient required second surgery at [facility] in [place]. See list for additional surgery. SOCIAL HISTORY: No illicit drug use. REVIEW OF SYSTEMS: CONSTITUTIONAL: Denies fever or chills. HEENT: Denies blurred vision, vision changes, or eye pain. Denies hemoptysis CARDIOVASCULAR: Denies chest pain or pressure. RESPIRATORY: Reports shortness of breath with exertion. GASTROINTESTINAL: Refer to HPI for pertinent findings HEMATOLOGIC: Denies bleeding disorders. GENITOURINARY: Denies any blood in urine. SKIN: Denies pruitis. Denies rash. PHYSICAL EXAM: VITAL SIGNS: Reviewed. GENERAL: Well-developed in no acute distress. HEENT: No sclera icterus. Extraocular movements grossly intact. Moist buccal mucosa. Head is atraumatic, normocephalic. ABDOMEN: Soft. Nondistended. Nontender. Multiple scars throughout abdomen. NEUROLOGIC: Alert and oriented. Cranial nerves II through XII grossly intact. LABORATORY DATA: Hemoglobin on admission 8.9. Repeat this morning 9.3. Hemoglobin obtained last month on 12/31/2018 was 13.6. ASSESSMENT: 1. Acute GI bleed, patient presents with dark stools and bright red blood per rectum 2. Acute blood loss anemia, secondary to above 3. History of Demetra fundoplication 4. History of GERD 5. History of bowel resection with colostomy secondary to perforated colon 6. History of colostomy reversal 7. History of diverticulosis, no evidence of acute diverticulitis PLAN: 1. Continue to hold aspirin 2. SCDs and ambulation for DVT prophylaxis. No heparin or Lovenox 3. Continue Protonix 40 mg IV twice a day 4. Clear liquid diet today. Nothing by mouth after midnight 5. GoLYTELY bowel prep today 6. EGD/colonoscopy tomorrow with Dr. Pineda Nurse practitioner note has been reviewed by physician. Signing provider agrees with the documented findings, assessment, and plan of care. 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, 07/2018 SOB with exertion/cat scan showed multiple opacities L lower lung-had bronch/BAL and is currently being treated with chemotherapy again with last dose about 10 days ago, diverticular disease, SBO with resection/colostomy/reversal of colostomy, prostate cancer with radiation tx, skin cancer removed from face, hypothyroid, occasional low back pain, pt denies [facility] admission dated 12/26/18 as including diagnosis of FL/CHF History of Any Multi-Drug Resistant Organisms: None Reported Past Surgical History: Bowel Resection, Heart Catheterization, Heart Catheterization With Stent, Orthopedic Surgery, Tonsillectomy Additional Past Surgical History / Comment(s): 01/07/19 bronchoscopy with BAL, past bronchoscopies/bx, PCI with stent 2006, bilateral reconstructive ear surgery and gland removed under jaw, bowel resection d/t rupture with colostomy later reversed, L cataract removal, demetra fundoloplasty, bilateral total shou lders/knees, L knee arthroscopy x 2, EGD, colonoscopy, prostate bx, bilateral exiscion gynecomastia, skin cancer removals. Past Anesthesia/Blood Transfusion Reactions: No Reported Reaction, Motion Sickness Date of Last Stent Placement:: 2006 Smoking Status: Former smoker - Past Family History Mother Family Medical History: Cancer Additional Family Medical History / Comment(s): MULTIPLE MEYLOMA Father Family Medical History: Cancer Additional Family Medical History / Comment(s): LUNG CANCER Sister(s) Family Medical History: Cancer Additional Family Medical History / Comment(s): sister had rectal cancer. Son(s) Family Medical History: Cancer Additional Family Medical History / Comment(s): Son has hodgkins lymphoma Medications and Allergies Home Medications Medication Instructions Recorded Confirmed Type FLUoxetine HCL [PROzac] 20 mg PO DAILY 08/05/14 02/04/19 History Levothyroxine Sodium [Synthroid] 50 mcg PO DAILY 08/05/14 02/04/19 History Montelukast [Singulair] 10 mg PO HS 08/05/14 02/04/19 History Omeprazole [PriLOSEC] 40 mg PO DAILY 08/05/14 02/04/19 History Pravastatin Sodium [Pravachol] 40 mg PO HS 08/05/14 02/04/19 History Tamsulosin [Flomax] 0.4 mg PO DAILY 08/05/14 02/04/19 History Folic Acid 1 mg PO DAILY 02/12/18 02/04/19 History Fluticasone/Salmeterol [Advair 1 puff INHALATION RT-BID 12/26/18 02/04/19 History 250-50 Diskus] Aspirin 81 mg PO DAILY #30 chewable 12/31/18 02/04/19 Rx Furosemide [Lasix] 40 mg PO DAILY #30 tab 12/31/18 02/04/19 Rx Metoprolol Tartrate 12.5 mg PO BID 01/03/19 02/04/19 History Ipratropium-Albuterol Nebulize 3 ml INHALATION RT-BID 02/04/19 02/05/19 History [Duoneb 0.5 mg-3 mg/3 ml Soln] Allergies Allergy/AdvReac Type Severity Reaction Status Date / Time No Known Allergies Allergy Verified 02/04/19 10:15 Surgical - Exam Vital Signs Temp Pulse Resp BP Pulse Ox 98.1 F 86 22 121/81 97 02/04/19 09:09 02/04/19 09:09 02/04/19 09:09 02/04/19 09:09 02/04/19 09:09 Results - Labs 02/05/19 07:01 02/05/19 07:01 Abnormal Lab Results - Last 24 Hours (Table) 02/04/19 02/05/19 02/05/19 Range/Units 16:26 07:01 07:01 WBC 2.9 L 2.2 L (3.8-10.6) k/uL RBC 2.97 L 3.22 L (4.30-5.90) m/uL Hgb 8.9 L 9.3 L (13.0-17.5) gm/dL Hct 25.5 L 29.0 L (39.0-53.0) % RDW 19.2 H 16.9 H (11.5-15.5) % Plt Count 146 L (150-450) k/uL Neutrophils # 1.2 L (1.3-7.7) k/uL Lymphocytes # 0.7 L 0.5 L (1.0-4.8) k/uL Chloride 111 H (98-107) mmol/L Carbon Dioxide 21 L (22-30) mmol/L Diabetes panel 02/05/19 Range/Units 07:01 Sodium 140 (137-145) mmol/L Potassium 4.3 (3.5-5.1) mmol/L Chloride 111 H (98-107) mmol/L Carbon Dioxide 21 L (22-30) mmol/L BUN 18 (9-20) mg/dL Creatinine 1.18 (0.66-1.25) mg/dL Glucose 96 (74-99) mg/dL Calcium 9.3 (8.4-10.2) mg/dL Calcium panel 02/05/19 Range/Units 07:01 Calcium 9.3 (8.4-10.2) mg/dL Pituitary panel 02/05/19 Range/Units 07:01 Sodium 140 (137-145) mmol/L Potassium 4.3 (3.5-5.1) mmol/L Chloride 111 H (98-107) mmol/L Carbon Dioxide 21 L (22-30) mmol/L BUN 18 (9-20) mg/dL Creatinine 1.18 (0.66-1.25) mg/dL Glucose 96 (74-99) mg/dL Calcium 9.3 (8.4-10.2) mg/dL Adrenal panel 02/05/19 Range/Units 07:01 Sodium 140 (137-145) mmol/L Potassium 4.3 (3.5-5.1) mmol/L Chloride 111 H (98-107) mmol/L Carbon Dioxide 21 L (22-30) mmol/L BUN 18 (9-20) mg/dL Creatinine 1.18 (0.66-1.25) mg/dL Glucose 96 (74-99) mg/dL Calcium 9.3 (8.4-10.2) mg/dL
[2019-02-05] MEDS ORDERED: PEG 3350-NA SULF,BICARB,CL/KCL 4,000 ML BOTTLE PO ONE (14:00)
--- NOTE | 2019-02-05 15:23 | P.CONS ---
History of Present Illness - Reason for Consult Consult date: 02/05/19 Adenocarcinoma of the Lung on Treatment Requesting physician: Stefan Lopez - Chief Complaint SOB - History of Present Illness Mr. Lu is a very pleasant male patient well known to us when he originally presented with progressive exertional dyspnea for a few months had a chest x-ray followed by CAT scan in September 2015 this revealed worsening of the left pleural effusion compared to prior scans which was originally found in 2013. On his scan 2015 there was also a right upper lobe nodule that was slightly increased with likely associated enlarged mediastinal lymph nodes on 12/03/2015 he underwent a diagnostic thoracentesis cytology showed positive for adenocarci noma the lung on 12/12/2015 he had a PET scan which revealed suspicious uptake in that right upper lobe 2.2 paraspinal mass left pleural effusion otherwise negative on 12/16/2015 MRI of the brain was negative locular profile cannot be performed due to the cytology from the pleural fluid was not concentrated in the patient did not want a week for further molecular profiling or a repeat biopsy therefore we decided to initiate treatment at that time with carboplatin and Alimta and Avastin this was started on 12/30/2015 he completed 4 cycles which she tolerated well his repeat diagnostic imaging revealed stable disease possible slight progression in left pleural effusion he was initiated on main tenance Alimta and April 2016 his follow-up restaging exams in June 2016 showed no evidence of progression he continued to do well until July 2018 which his computed tomography scan of the chest revealed a mild stable left pleural effusion with some inflammatory changes in his left lower lung however he also complained at that time of worsening cough referred to Dr. Barrera our underwent a bronchoscopy on 10/23/2018 and a transbronchial biopsy was taken and the pathology revealed poorly differentiated adenocarcinoma at this time his molecular testing with next GEN sequencing was negative for any targeted mutations including but not limited to ALK and ROS unfortunately at that time PDL 1 could not be obtained. In October 2018 he was started on Opdivo (Immune Therapy) November 28 he continued to have worsening shortness of breath CAT scan of the chest revealed increasing size of right upper lobe nodule and increasing left lower lobe consolidation he was started on prednisone and symptoms improved he resumed Optivar on 12/05/2018 continued with 3 more treatments 12/26/2018 he was referred to the emergency department for sudden chills dyspnea and acute hypoxic respiratory failure the CT of the scan at that time revealed worsening bilateral lower lung infiltrate and consolidation treated with antibiotic steroids discharged on 12/31/2018 on 01/07/2019 he had a bronchoscopy biopsy which was negative he continues to recover from his emergency visit in early December he is now off prednisone and completed antibiotics as of the first week in January although his nonproductive cough shortness of breath overall fatigue and diffuse joint pain has appeared to become progressively worse. I've Divo was therefore stopped and on 01/25/2019 he began his first cycle of Carbo and Alimta. He presented to the office on 02/04/2019 for a follow-up visit and blood check with complaints of black tarry stools and a drop in his hemoglobin therefore he was referred to emergency for further workup and evaluation. On presentation he stated that on Monday he noted some fresh blood with the bowel movement which later over the weekend became dark black stools he has had associated dizziness and lightheadedness he does take aspirin at home and he does have a history of prior bowel surgeries including colostomy and small bowel surgery as well as hiatal hernia surgery this was done at [facility] at bedside during evaluation, currently doing prep. still dark water blood tinged Review of Systems A 14 point review of systems was assessed and completed all negative except for HPI 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, 07/2018 SOB with exertion/cat scan showed multiple opacities L lower lung-had bronch/BAL and is currently being treated with chemotherapy again with last dose about 10 days ago, diverticular disease, SBO with resection/colostomy/reversal of colostomy, prostate cancer with radiation tx, skin cancer removed from face, hypothyroid, occasional low back pain, pt denies [facility] admission dated 12/26/18 as including diagnosis of MS/CHF History of Any Multi-Drug Resistant Organisms: None Reported Past Surgical History: Bowel Resection, Heart Catheterization, Heart Catheterization With Stent, Orthopedic Surgery, Tonsillectomy Additional Past Surgical History / Comment(s): 01/07/19 bronchoscopy with BAL, past bronchoscopies/bx, PCI with stent 2006, bilateral reconstructive ear surgery and gland removed under jaw, bowel resection d/t rupture with colostomy later reversed, L cataract removal, demetra fundoloplasty, bilateral total shoulders/knees, L knee arthroscopy x 2, EGD, colonoscopy, prostate bx, bilateral exiscion gynecomastia, skin cancer removals. Past Anesthesia/Blood Transfusion Reactions: No Reported Reaction, Motion Sickness Date of Last Stent Placement:: 2006 Smoking Status: Former smoker - Past Family History Mother Family Medical History: Cancer Additional Family Medical History / Comment(s): MULTIPLE MEYLOMA Father Family Medical History: Cancer Additional Family Medical History / Comment(s): LUNG CANCER Sister(s) Family Medical History: Cancer Additional Family Medical History / Comment(s): sister had rectal cancer. Son(s) Family Medical History: Cancer Additional Family Medical History / Comment(s): Son has hodgkins lymphoma Medications and Allergies Home Medications Medication Instructions Recorded Confirmed Type FLUoxetine HCL [PROzac] 20 mg PO DAILY 08/05/14 02/04/19 History Levothyroxine Sodium [Synthroid] 50 mcg PO DAILY 08/05/14 02/04/19 History Montelukast [Singulair] 10 mg PO HS 08/05/14 02/04/19 History Omeprazole [PriLOSEC] 40 mg PO DAILY 08/05/14 02/04/19 History Pravastatin Sodium [Pravachol] 40 mg PO HS 08/05/14 02/04/19 History Tamsulosin [Flomax] 0.4 mg PO DAILY 08/05/14 02/04/19 History Folic Acid 1 mg PO DAILY 02/12/18 02/04/19 History Fluticasone/Salmeterol [Advair 1 puff INHALATION RT-BID 12/26/18 02/04/19 History 250-50 Diskus] Aspirin 81 mg PO DAILY #30 chewable 12/31/18 02/04/19 Rx Furosemide [Lasix] 40 mg PO DAILY #30 tab 12/31/18 02/04/19 Rx Metoprolol Tartrate 12.5 mg PO BID 01/03/19 02/04/19 History Ipratropium-Albuterol Nebulize 3 ml INHALATION RT-BID 02/04/19 02/05/19 History [Duoneb 0.5 mg-3 mg/3 ml Soln] Allergies Allergy/AdvReac Type Severity Reaction Status Date / Time No Known Allergies Allergy Verified 02/04/19 10:15 Physical Exam Vitals: Vital Signs Temp Pulse Pulse Resp BP BP Pulse Ox 02/05/19 12:47 70 02/05/19 12:37 70 02/05/19 11:35 97.4 F L 70 16 124/77 96 02/05/19 09:56 66 02/05/19 09:44 64 02/05/19 04:43 97.8 F 65 16 122/70 94 L 02/05/19 00:00 16 02/04/19 21:00 97.6 F 82 16 127/75 94 L 02/04/19 17:15 97.8 F 78 17 133/74 98 02/04/19 16:48 89 16 129/87 96 Intake and Output 02/05/19 02/05/19 02/05/19 06:59 14:59 22:59 Intake Total 720 600 Balance 720 600 Intake: Intake, IV Titration 600 600 Amount Sodium Chloride 0.9% 1, 600 600 000 ml @ 75 mls/hr IV . [id number] [facility] Rx#:[id number] Oral 120 Other: # Voids 1 General: Awake and Alert, No acute Distress HEENT: Normal Cephalic, Atraumatic. Non-icteric Sclera Mouth: No Thrush, Dry Mucus Membranes Neck: supple, trachea midline. Lymph Nodes: No cervical, supraclavicular, or Axillary Lymphadenopathy on palpation Heart: RRR, S1S2 Lungs: Increased respiratory Effort Noted, Bilateral bibasilar diminishedl Abdomen: Soft, Non-distended, Non-tender Extremities: Strength is equal bilateral upper and lower, No edema noted Skin: No rashes or lesions noted Neurological: No sensory or motor deficits. Psychiatric: Cooperative, appropriate mood & affect, normal judgment. Results CBC & Chem 7: 02/05/19 07:01 02/05/19 07:01 Labs: Abnormal Lab Results - Last 24 Hours (Table) 02/04/19 02/05/19 02/05/19 Range/Units 16:26 07:01 07:01 WBC 2.9 L 2.2 L (3.8-10.6) k/uL RBC 2.97 L 3.22 L (4.30-5.90) m/uL Hgb 8.9 L 9.3 L (13.0-17.5) gm/dL Hct 25.5 L 29.0 L (39.0-53.0) % RDW 19.2 H 16.9 H (11.5-15.5) % Plt Count 146 L (150-450) k/uL Neutrophils # 1.2 L (1.3-7.7) k/uL Lymphocytes # 0.7 L 0.5 L (1.0-4.8) k/uL Chloride 111 H (98-107) mmol/L Carbon Dioxide 21 L (22-30) mmol/L Assessment and Plan (1) Adenocarcinoma of left lung, stage 4 Current Visit: No Status: Acute Code(s): C34.92 - MALIGNANT NEOPLASM OF UNSP PART OF LEFT BRONCHUS OR LUNG SNOMED Code(s): 46317309801082118 (2) Non-small cell lung cancer (NSCLC) Current Visit: No Status: Chronic Priority: High Code(s): C34.90 - MALIGNANT NEOPLASM OF UNSP PART OF UNSP BRONCHUS OR LUNG SNOMED Code(s): 276309681 Plan: Assessment Recommendations: Non-Small Cell Lung Cancer: - Details and History reviewed in HPI - Recently Treated with Immune Therapy (opdivo), Stopped 12/19/18 - Status Post Cycle One of carboplatin and Almta on 01/25/19 Black Tarry Stools: - Concern for GI Bleeding - Surgery Evaluation - Monitoring CBC - last colonoscopy 4 years ago, per surgery consultation plan is for EGD and COlonoscopy on 02/06/19 Normocytic Anemia: - Component of recent Chemotherapy although with evidence of Black Tarry Stools Acute GI Blood Loss Anemia considered contributing factor - Monitor CBC daily and transfuse if less than 7 - Hold Anticoagulation and anti-platlets until resolution of Bleeding Leukopenia: Secondary to chemotherapy: - He is approaching his jennifer, if ANC drops to less than 1 will initiate growth factor daily while inpatient - Platlets are stable at greater ginger 150K
[2019-02-05] MEDS: MONTELUKAST 10 MG TAB PO SCH (20:28)
[2019-02-05] MEDS ORDERED: ZOLPIDEM 10 MG TAB PO SCH (21:00)
[2019-02-05] MEDS ORDERED: PRAVASTATIN SODIUM 40 MG TAB PO SCH (21:00)
[2019-02-06] MEDS: SODIUM CHLORIDE 0.9% 1,000 ML IV SCH (00:32)
[2019-02-06 01:36] LABS: Iron Saturation 15.02 (15.00-50.00)
--- NOTE | 2019-02-06 06:14 | PN ---
PROGRESS NOTE DATE OF SERVICE: 02/05/2019 PRESENTING COMPLAINT: Bloody stools. HISTORY OF PRESENTING COMPLAINT: This patient was on aspirin, presented with bloody stools. Also getting treated for adenocarcinoma of the lung stage IV for multiple other medical problems. No further bleeding today. Seen by Surgery who is doing a bowel prep for possible endoscopy tomorrow. is present. Does feel tired and rundown. REVIEW OF SYSTEMS: Done for constitutional, cardiovascular, GI, pulmonary; relevant findings as above. CURRENT MEDICATIONS: Current medications are reviewed that include IV Protonix. PHYSICAL EXAMINATION: On examination, temperature 97.4, pulse 70, respiration 16, blood pressure 124/77, pulse ox 96% on room air. GENERAL APPEARANCE: Sitting up, awake. EYES: Pupils equal. Conjunctivae pale. NECK: JVD unable to assess. Mass not palpable. RESPIRATORY: Effort normal. LUNGS: Decreased breath sounds. CARDIOVASCULAR: First and second sounds normal. No edema. ABDOMEN: Soft, nontender. Liver and spleen not palpable. PSYCHIATRY: Alert and oriented x3. Mood and affect normal. INVESTIGATIONS: Hemoglobin 9.3. Potassium 4.3. ASSESSMENT: 1. Acute severe blood loss anemia from gastrointestinal bleed. The patient is on aspirin and a prior history of Grabiel fundoplication. 2. Coronary artery disease with recent acute non-ST elevation myocardial infarction that was managed medically, status post cardiac cath. 3. Stage IV adenocarcinoma of the lung on current treatment. 4. Chronic obstructive pulmonary disease in an ex-smoker. 5. Hypothyroidism. 6. Essential hypertension. 7. Hyperlipidemia. 8. Obstructive sleep apnea. 9. Chronic congestive heart failure from diastolic dysfunction. Ejection fraction 50% to 65% from underlying coronary artery disease. 10.Moderate aortic stenosis with sclerosis, nonrheumatic. PLAN: Continue current medication and treatment plan. Continue with PPIs. Awaiting EGD and colonoscopy tomorrow by Dr. Pineda. MMODL / IJN: [id number] /
[2019-02-06] MEDS: LEVOTHYROXINE 50 MCG TAB PO SCH (07:37)
--- NOTE | 2019-02-06 07:59 | P.HPADDEND ---
H&P Addendum H&P Addendum Date: 02/06/19 For history of gastrointestinal bleed, we'll proceed with both upper and lower endoscopies.
[2019-02-06] MEDS: TAMSULOSIN 0.4 MG CAP.ER.24H PO SCH (08:05)
[2019-02-06] MEDS: FOLIC ACID 1 MG TAB PO SCH (08:05)
[2019-02-06] MEDS: FLUoxetine HCL 20 MG CAP PO SCH (08:05)
[2019-02-06] MEDS: METOPROLOL TARTRATE 12.5 MG TAB PO SCH (08:05)
[2019-02-06] MEDS: PANTOPRAZOLE 40 MG/10 ML VIAL IV SCH (08:05)
[2019-02-06] MEDS: SYMBICORT 80-4.5 MCG INHALER INHALATION SCH (09:05)
[2019-02-06] MEDS: IPRATROPIUM-ALBUTEROL 3 ML NEB INHALATION SCH (09:05)
[2019-02-06 10:13] VITALS: RESP 17
[2019-02-06] MEDS ORDERED: PROPOFOL 10 MG/ML 20 ML VIAL IV ONE (10:18)
[2019-02-06] MEDS ORDERED: LIDOCAINE 1% INJ 10MG/ML (20 ML MDV) ONE (10:18)
[2019-02-06] MEDS ORDERED: IV FLUID CONTINUATION 1,000 ML IV ONE (10:21)
[2019-02-06 10:30] LABS: Anisocytosis Slight; HCT 28.6 % (39.0-53.0); HGB 8.9 gm/dL (13.0-17.5); MCH 27.4 pg (25.0-35.0); MCV 88.7 fL (80.0-100.0); Mean Platelet Volume 6.9; Platelet Count 180 k/uL (150-450); RBC 3.23 m/uL (4.30-5.90); RDW 16.9 % (11.5-15.5); WBC 2.4 k/uL (3.8-10.6)
--- NOTE | 2019-02-06 10:47 | P.PCN ---
Date of Procedure: 02/06/19 Description of Procedure: PREOPERATIVE DIAGNOSIS: Gastrointestinal bleed Acute blood loss anemia Lung cancer on chemotherapy History of Grabiel fundoplasty POSTOPERATIVE DIAGNOSIS: Gastrointestinal bleed Acute blood loss anemia Lung cancer on chemotherapy History of Grabiel fundoplasty OPERATION: Esophagogastroduodenoscopy SURGEON: Rose Mary Pineda MD ANESTHESIA: MAC. INDICATIONS: The patient is a 78-year-old male who presents with a history of anemia, lung cancer currently chemotherapy, gastrointestinal bleed. Benefits and risks of the procedure were described. Informed consent was obtained. DESCRIPTION: The patient was brought into the endoscopy suite and laid in the left lateral decubitus position. An Olympus gastroscope was passed along the posterior oropharynx down to the distal esophagus where the squamocolumnar junction was encountered at 45 cm from the incisors. The stomach was entered and minimal bile reflux was found. Additional findings are listed below. The first through third portion of the duodenum was examined and unremarkable. Retroflexion of the scope confirmed Hill grade 3 lower esophageal valve. The squamocolumnar junction demonstrated LA grade B erosive esophagitis. The stomach was desufflated. The patient tolerated the procedure well. FINDINGS: Squamocolumnar junction 45 cm from the incisors. Diaphragmatic hiatus at 45 cm. Hill grade 3 lower esophageal valve. Findings of fundoplication, loose wrap LA grade B erosive esophagitis, chronic No active duodenitis or duodenal ulcers No peptic ulcers or gastritis identified RECOMMENDATIONS: Upper endoscopy as needed.
[2019-02-06] MEDS ORDERED: SODIUM CHLORIDE 0.9% 1,000 ML IV ONE (11:01)
--- NOTE | 2019-02-06 11:04 | P.OP ---
Date of Procedure: 02/06/19 Description of Procedure: PREOPERATIVE DIAGNOSIS: Acute blood anemia Gastrointestinal bleed of unclear etiology History of lung cancer on chemo radiation POSTOPERATIVE DIAGNOSIS: Acute blood anemia Gastrointestinal bleed of unclear etiology History of lung cancer on chemo radiation Severe pandiverticulosis Mild focal colitis proximal transverse colon OPERATION: Colonoscopy to the ileocecal valve and appendiceal orifice. SURGEON: Rose Mary Pineda MD. ANESTHESIA: MAC. INDICATIONS: The patient is a 78-year-old male who presented with gastrointestinal bleed. Benefits and risks were described and informed consent was obtained. DESCRIPTION OF PROCEDURE: The patient had undergone Golytely prep. He had been brought into the operating room and laid in the left lateral decubitus position. After adequate intravenous sedation, the rectum was examined with 2% lidocaine jelly. No external hemorrhoids were encountered. The rectal tone was within normal limits. No lesions were palpated in the rectal vault. An Olympus colonoscope was advanced until the ileocecal valve and appendiceal orifice were clearly viewed. The prep was good with clear visualization of the mucosal folds. Few remnants of dark blood was found at the transverse proximal colon. Superficial mild proximal transverse colitis was identified. No active bleeding was found. The scope was removed with visualization of each mucosal fold. Severe pandiverticulosis was encountered. No tubular adenomas were found. No evidence of focal colitis was found. The colon was desufflated. The patient had tolerated the procedure well. Withdrawal time was over 6 minutes. FINDINGS: Aronchick preparation quality scale 1 (1-5) Internal hemorrhoids, grade 1 No external prolapsed hemorrhoids. No arteriovenous malformations. No large adenomatous polyps. Few remnants of dark blood was found at the transverse proximal colon Superficial mild proximal transverse colitis was identified. Severe pandiverticulosis RECOMMENDATIONS: Lower endoscopy as needed. Expectant management May start liquid diet
[2019-02-06 11:08] LABS: Lymphocytes # (M) 0.46 k/uL (1.0-4.8); Monocytes # (M) 0.36 k/uL (0-1.0); Neutrophils # (M) 1.49 k/uL (1.3-7.7); Neutrophils % (M) 62 %; Nucleated Red Blood Cells 0 /100 WBC (0-0); Total Cells Counted 100
[2019-02-06 11:09] LABS: Polychromasia Present
--- NOTE | 2019-02-06 11:11 | P.PN ---
Progress Note - Text Progress Note Date: 02/06/19 Patient stable from a surgical standpoint for discharge when medically stable.
[2019-02-06 12:17] VITALS: TEMP 98.1
[2019-02-06 12:18] VITALS: BP 156/88; PULSE 67
--- NOTE | 2019-02-06 14:17 | P.PN ---
Subjective Progress Note Date: 02/06/19 Principal diagnosis: GI Bleeding Scope EGD and colonoscopy today. He really wants to go home, at bedside Objective - Vital Signs Vital signs: Vital Signs Temp 98.1 F 02/06/19 11:19 Pulse 67 02/06/19 12:04 Resp 17 02/06/19 11:19 BP 156/88 02/06/19 12:04 Pulse Ox 97 02/06/19 11:19 Intake & Output 02/05/19 02/06/19 02/06/19 18:59 06:59 18:59 Intake Total 600 300 100 Balance 600 300 100 Weight 93.894 kg 93.5 kg Intake: IV 100 Intake, IV Titration 600 300 Amount Sodium Chloride 0.9% 1, 600 300 000 ml @ 75 mls/hr IV . [id number] [facility] Rx#:[id number] Oral 0 Other: # Voids 2 - Exam General: Awake and Alert, No acute Distress HEENT: Normal Cephalic, Atraumatic. Non-icteric Sclera Mouth: No Thrush, Dry Mucus Membranes Neck: supple, trachea midline. Lymph Nodes: No cervical, supraclavicular, or Axillary Lymphadenopathy on palpation Heart: RRR, S1S2 Lungs: Increased respiratory Effort Noted, Bilateral bibasilar diminishedl Abdomen: Soft, Non-distended, Non-tender Extremities: Strength is equal bilateral upper and lower, No edema noted Skin: No rashes or lesions noted Neurological: No sensory or motor deficits. Psychiatric: Cooperative, appropriate mood & affect, normal judgment - Labs CBC & Chem 7: 02/06/19 09:31 02/05/19 07:01 Labs: Abnormal Lab Results - Last 24 Hours (Table) 02/05/19 02/06/19 Range/Units 07:01 09:31 WBC 2.4 L (3.8-10.6) k/uL RBC 3.23 L (4.30-5.90) m/uL Hgb 8.9 L (13.0-17.5) gm/dL Hct 28.6 L (39.0-53.0) % RDW 16.9 H (11.5-15.5) % Lymphocytes # (Manual) 0.46 L (1.0-4.8) k/uL Iron 44 L (65-175) ug/dL Assessment and Plan (1) Adenocarcinoma of left lung, stage 4 Status: Acute Code(s): C34.92 - MALIGNANT NEOPLASM OF UNSP PART OF LEFT BRONCHUS OR LUNG SNOMED Code(s): 18539542405015041 (2) Non-small cell lung cancer (NSCLC) Status: Chronic Priority: High Code(s): C34.90 - MALIGNANT NEOPLASM OF UNSP PART OF UNSP BRONCHUS OR LUNG SNOMED Code(s): 358116689 Plan: Assessment Recommendations: Non-Small Cell Lung Cancer: - Details and History reviewed in HPI - Recently Treated with Immune Therapy (opdivo), Stopped 12/19/18 - Status Post Cycle One of carboplatin and Almta on 01/25/19 Black Tarry Stools: - Concern for GI Bleeding - Surgery Evaluation - Monitoring CBC - last colonoscopy 4 years ago, per surgery consultation plan is for EGD and COlonoscopy on 02/06/19 Normocytic Anemia: - Component of recent Chemotherapy although with evidence of Black Tarry Stools Acute GI Blood Loss Anemia considered contributing factor - Monitor CBC daily and transfuse if less than 7 - Hold Anticoagulation and anti-platlets until resolution of Bleeding Leukopenia: Secondary to chemotherapy: - He is approaching his jennifer, if ANC drops to less than 1 will initiate growth factor daily while inpatient - Platlets are stable at greater ginger 150K Await results of GI Evaluation Plan to follow-up with Dr. Rutherford prior to next treatment
--- NOTE | 2019-02-07 11:49 | DS ---
DISCHARGE SUMMARY DATE OF ADMISSION: 02/04/2019 DATE OF DISCHARGE: 02/06/2019 FINAL DIAGNOSES: 1. Acute severe blood loss anemia from gastrointestinal tract exact source unknown. 2. Coronary artery with stent with recent acute [id number] myocardial infarction that was managed medically, status post cardiac cath. 3. Stage IV adenocarcinoma of the lung, on current treatment. 4. History of Grabiel fundoplication. 5. Chronic obstructive pulmonary disease in an ex-smoker. 6. Hypothyroidism. 7. Essential hypertension. 8. Hyperlipidemia. 9. Obstructive sleep apnea. 10.Chronic congestive heart failure from diastolic dysfunction. Ejection fraction 50% to 65% from underlying coronary artery disease. 11.Moderate aortic stenosis with sclerosis, nonrheumatic. HOSPITAL COURSE: This very pleasant gentleman with 2 prior Grabiel fundoplication procedures presented with fresh blood, dark stools rectally and then again a second episode. The patient's hemoglobin on presentation was 8.9, remains the same. The patient did undergo EGD by Dr. Pineda and no specific findings were present. She okayed the patient to be discharged. The patient remained hemodynamically stable. On day of discharge, care was discussed with the patient and . Questions were answered. The patient was told to witness his stools regularly and return if any symptoms were to develop. The patient's TSH was normal. PHYSICAL EXAMINATION: On examination, temperature 98.1, pulse 67, respiration 17, blood pressure 114/69, pulse ox 97% on room air. ABDOMEN: Soft, nontender. INVESTIGATIONS: Hemoglobin 8.9. DISCHARGE MEDICATIONS: 1. Prozac 20 mg p.o. daily. 2. Synthroid 50 mcg p.o. daily. 3. Singulair 10 mg p.o. at bedtime. 4. Prilosec 40 mg p.o. daily. 5. Pravachol 40 mg at bedtime. 6. Flomax 0.4 mg p.o. daily. 7. Folic acid 1 mg p.o. daily. 8. Advair 250/50 one puff b.i.d. 9. Aspirin 81 mg p.o. daily. 10.Lasix 40 mg p.o. daily. 11.Metoprolol tartrate 12.5 p.o. b.i.d. 12.DuoNeb b.i.d. Follow up with Dr. Roxie Melendez in 3 days. Follow up with Dr. Pineda as needed. LABS: CBC within the week. Discussion and discharge planning more than 35 minutes. MMODL / IJN: [id number] /
== END 2019-02-06 15:45 | disposition home or self-care (01) | DRG 378 ==
LOC: EC 09:06 → INTOOBSV 09:57 → OBSVTOIN 09:57 → 3NMEDONC 09:57 → 3SCARD 02-05 22:53 → 3NMEDONC 02-05 22:53 → 3SCARD 02-05 22:55 → 3NMEDONC 02-05 22:55
PROVIDERS: ADMIT Hospitalist; ATTEND Hospitalist
PROC: 0DJD8ZZ Inspection of Lower Intestinal Tract, Via Natural or Artificial Opening Endoscopic (ICD-10-PCS; principal; 2019-02-06 12:30)
PROC: 0DJ08ZZ Inspection of Upper Intestinal Tract, Via Natural or Artificial Opening Endoscopic (ICD-10-PCS; 2019-02-06 12:30)
DX: K57.33 Diverticulitis of large intestine without perforation or abscess with bleeding (principal); D62 Acute posthemorrhagic anemia; C34.92 Malignant neoplasm of unspecified part of left bronchus or lung; C79.9 Secondary malignant neoplasm of unspecified site; I50.32 Chronic diastolic (congestive) heart failure; K22.10 Ulcer of esophagus without bleeding; E03.9 Hypothyroidism, unspecified; E78.5 Hyperlipidemia, unspecified; G47.33 Obstructive sleep apnea (adult) (pediatric); I11.0 Hypertensive heart disease with heart failure; I25.10 Atherosclerotic heart disease of native coronary artery without angina pectoris; I25.2 Old myocardial infarction; I35.0 Nonrheumatic aortic (valve) stenosis; J44.9 Chronic obstructive pulmonary disease, unspecified; K21.9 Gastro-esophageal reflux disease without esophagitis; K44.9 Diaphragmatic hernia without obstruction or gangrene; K52.9 Noninfective gastroenteritis and colitis, unspecified; K64.0 First degree hemorrhoids; Z79.82 Long term (current) use of aspirin; Z79.890 Hormone replacement therapy; Z79.899 Other long term (current) drug therapy; Z80.0 Family history of malignant neoplasm of digestive organs; Z80.1 Family history of malignant neoplasm of trachea, bronchus and lung; Z85.46 Personal history of malignant neoplasm of prostate; Z85.828 Personal history of other malignant neoplasm of skin; Z86.19 Personal history of other infectious and parasitic diseases; Z87.891 Personal history of nicotine dependence; Z90.49 Acquired absence of other specified parts of digestive tract; Z95.5 Presence of coronary angioplasty implant and graft; Z96.611 Presence of right artificial shoulder joint; Z96.612 Presence of left artificial shoulder joint; Z98.42 Cataract extraction status, left eye; Z96.653 Presence of artificial knee joint, bilateral; Z80.7 Family history of other malignant neoplasms of lymphoid, hematopoietic and related tissues; Z92.3 Personal history of irradiation; M19.90 Unspecified osteoarthritis, unspecified site; Z99.89 Dependence on other enabling machines and devices
CPT/HCPCS: 36415; 43235; 45378; 80048; 80053; 82150; 82728; 83540; 83550; 83690; 84443; 85025; 85610; 85730; 86850; 86900; 86901; 94640; 96374; 99285

== ENCOUNTER → 2019-02-26 | Outpatient (CLI) | payer MEDICARE ==
[~2019-02-26] MED LIST changes: -ALBUTEROL NEB (CONC) 2.5 MG/0.5 ML INHALATION ONE; +COSYNTROPIN 0.25 MG VIAL IVP ONE; -LACTATED RINGERS 1,000 ML IV SCH; -LIDOCAINE 1% 20 ML VIAL (10MG/ML) FOR IV START INTRADERMA PRN; -LIDOCAINE 2% (PF) 20 MG/ML 5 ML VIAL INHALATION ONE; -LIDOCAINE VISCOUS 300 MG/15 ML CUP MUCOUS MEM ONE; -SODIUM CHLORIDE 0.9% 1,000 ML IV SCH; +SODIUM CHLORIDE 0.9% 500 ML 500 ML in EMPTY BAG 1 BAG IV PRN
[2019-02-26 08:37] VITALS: BP 105/68; PULSE 85; RESP 16; TEMP 97.6
== END | disposition home or self-care (01) ==
LOC: PROCWHC3 08:11
PROVIDERS: ATTEND Internal Medicine Hematology & Oncology
DX: E27.1 Primary adrenocortical insufficiency (principal); C34.11 Malignant neoplasm of upper lobe, right bronchus or lung
CPT/HCPCS: 82533; 82024; 96374; 36415; J0834

== ENCOUNTER → 2019-03-11 | Outpatient (CLI) | payer MEDICARE ==
--- NOTE | 2019-03-11 17:59 | CT ---
EXAMINATION TYPE: CT ChestAbdPelvis w con DATE OF EXAM: 03/11/2019 INDICATION: Follow up lung cancer COMPARISON: 12/28/2018 CT DLP: 1304 mGycm CONTRAST: Performed with Oral Contrast and with IV Contrast, patient injected with 100 mL of Isovue 300. TECHNIQUE: Axial images at 5 mm thick sections. Reconstructed images in the coronal plane. Delayed images through the kidneys. FINDINGS: CT CHEST: Thyroid is poorly visualized. There is a 0.6 cm nodule posterior left upper lung field. Series 4 image 24. Filtrate extends through the lingula in the perihilar region. Some peribronchial thickening is presen t in the lingula. Consolidation is in the left lower lobe. Small left pleural effusion is present. So me compressive atelectasis is adjacent to the pleural effusion. There is a 1.1 cm density within the superior segment right lower lobe. Series 4 image 40. There is a consolidation at the left lung base. This is new. Pneumonitis or mass at the lateral right lung base above the diaphragm measures 1.3 cm. Series 4 imag e 53. Was present previously. A 0.5 cm nodule in the posterior right midlung. Series 4 image 44. This was present previously. There is a 1.6 x 2.6 cm nodule along the pleural margin of the posterior medial right apex. Series 3 image 14. This is similar to the previous exam. No enlarged mediastinal or hilar adenopathy is evident. The ascending aorta diameter at the level of the main pulmonary artery is 3.8 cm. The main pulmonary artery diameter at the bifurcation is 2.7 cm. Coronary artery calcifications present. CT ABDOMEN: Liver: Normal Spleen: Normal Pancreas: Normal Adrenal glands: The adrenal glands are normal. Gallbladder: Contracted Kidneys: No masses are evident. No hydronephrosis is present. No cysts are present. Delayed images were obtained through the kidneys, which remain unremarkable. Aorta: Vascular calcification is within the aorta. Inferior vena cava: Normal. CT PELVIS: Small bowel loops distended with oral contrast within the lower pelvis are slightly prominent. Correl ate for ileus. No obstruction is evident. Oral contrast extends to the distal small bowel. Scattered diverticuli may be near the cecum. Couple of diverticuli within the sigmoid colon. There are loops of bowel which are incompletely distended or lack oral contrast limiting their evaluation. Appendix: Not visualized, There appears to be a prior appendectomy Urinary bladder: Normal. Genitourinary structures: Prostate contains markers. There is mild prominence of the prostate Osseous structures: No suspicious lytic or sclerotic lesions. Degenerative disc changes and facet hyp ertrophy are present through the lumbar spine. IMPRESSIONS: 1. Consolidation right lower lobe could be postradiation changes. Pneumonia could be considered. Mila ent's reported lung cancer is also within the differential. This area appears less consolidated than previous. 2. Scattered nodules present previously or new and enlarged from comparison study. 3. Mild ileus distal small bowel without evidence of obstruction.
== END | disposition home or self-care (01) ==
LOC: RADCTMAIN 10:59
PROVIDERS: ATTEND Internal Medicine Hematology & Oncology
DX: C34.11 Malignant neoplasm of upper lobe, right bronchus or lung (principal)
CPT/HCPCS: 82565; 84520; 71260; 74177; 36415; Q9967

== ENCOUNTER → 2019-06-05 | Outpatient (CLI) | payer MEDICARE ==
--- NOTE | 2019-06-05 16:02 | CT ---
EXAMINATION TYPE: CT ChestAbdPelvis w con DATE OF EXAM: 06/05/2019 COMPARISON: Previous CT 03/11/2019 HISTORY: Lung CA CT DLP: 1523.3 mGycm Automated exposure control for dose reduction was used. CONTRAST: CT scan of the chest, abdomen and pelvis is performed with Oral Contrast and with IV Contrast, patien t injected with 100 mL of Isovue 300. FINDINGS: LUNGS: The lungs show a similar appearance. There is a nodular density present on axial image 46 in t he subpleural location shows a similar appearance. There is a nodule present on axial image 19 which appears less dense possibly due to volume averaging and measures only 5 mm in size. The pleural-paren chymal changes are similar to prior exam, there is some improvement in aeration at the left lung base however the interstitium remains coarsened there is likely some chronic pleural reaction. Nodular de nsity at the costophrenic angle on the right may represent scarring and shows a similar appearance. T he nodular density seen on axial image 40 on previous exam is seen on axial image 32 and is also less dense compared to prior. The subpleural soft tissue nodule in the paraspinal location in the right u pper lobe is stable. There is no pleural effusion or pneumothorax seen. The tracheobronchial tree is patent. MEDIASTINUM: There are no greater than 1 cm hilar or mediastinal lymph nodes. No pericardial effusi on is seen. AORTA: No significant abnormality is seen. OTHER: There are dense coronary artery calcifications present. LIVER/GB: Stable in appearance. There may be some small gallstones present. PANCREAS: No significant abnormality is seen. SPLEEN: No significant abnormality is seen. ADRENALS: No significant abnormality is seen. KIDNEYS: No significant interval change is seen. REPRODUCTIVE ORGANS: No gross abnormality seen. BOWEL: No significant abnormality is seen. FREE AIR: No Free Air visible. ASCITES: None seen. RETROPERITONEAL ADENOPATHY: No retroperitoneal adenopathy is seen. LYMPH NODES: No greater than 1 cm abdominal or pelvic lymph nodes are appreciated. URINARY BLADDER: No significant abnormality is seen. PELVIC ADENOPATHY: None visualized. OSSEOUS STRUCTURES: Stable. IMPRESSION: Improvement in lung nodules as described.
== END | disposition home or self-care (01) ==
LOC: RADCTMAIN 10:29
PROVIDERS: ATTEND Internal Medicine Hematology & Oncology
DX: Z03.89 Encounter for observation for other suspected diseases and conditions ruled out (principal); R91.8 Other nonspecific abnormal finding of lung field; C34.11 Malignant neoplasm of upper lobe, right bronchus or lung
CPT/HCPCS: 82565; 84520; 71260; 74177; 36415; Q9967

== ENCOUNTER 2019-06-12 03:07 | Inpatient (IN) | payer MEDICARE ==
[2019-06-12] MEDS ORDERED: MORPHINE SULFATE 4 MG/ML SYRINGE ONE (03:38)
[2019-06-12] MEDS ORDERED: LIDOCAINE URO-JET JELLY 2% 5 ML KIT ONE (03:38)
[2019-06-12] MEDS ORDERED: HYDROmorphone 0.5 MG/0.5 ML SYRINGE ONE ×2 (03:38)
[2019-06-12] MEDS ORDERED: HYDROmorphone 1 MG/ML 1 ML SYRINGE ONE (03:38)
[2019-06-12] MEDS ORDERED: SODIUM CHLORIDE 0.9% 500 ML BAG ONE (03:38)
[2019-06-12] MEDS ORDERED: ONDANSETRON 4 MG/2 ML VIAL ONE (03:38)
[2019-06-12] MEDS ORDERED: SODIUM CHLORIDE 0.9% 1,000 ML BAG ONE (03:38)
--- NOTE | 2019-06-12 10:17 | XR ---
EXAM: XR Abdomen, 2 Views CLINICAL HISTORY: ng tube TECHNIQUE: Frontal view of the abdomen/pelvis with upright view of the abdomen. COMPARISON: No relevant prior studies available. FINDINGS: Lower thorax: Left basilar airspace disease. Intraperitoneal space: No free air. Gastrointestinal tract: Multiple air-fluid levels and dilated small bowel loops. Organs: Contrast in the bladder. Bones/joints: Unremarkable. Tubes, lines and devices: NG tube, tip projecting over the left upper to mid abdomen likely in the stomach. Other findings: Moderate retained stool. IMPRESSION: NG tube, tip likely in the stomach.
[2019-06-12 10:54] LABS: Albumin 4.4 g/dL (3.5-5.0); Calcium 10.5 mg/dL (8.4-10.2); Potassium 5.1 mmol/L (3.5-5.1); Total Bilirubin 0.3 mg/dL (0.2-1.3); Total Protein 7.6 g/dL (6.3-8.2)
[2019-06-12 11:17] LABS: Anisocytosis Slight; HCT 35.3 % (39.0-53.0); HGB 11.6 gm/dL (13.0-17.5); MCH 32.6 pg (25.0-35.0); MCHC 32.8 g/dL (31.0-37.0); MCV 99.6 fL (80.0-100.0); Macrocytosis Slight; Mean Platelet Volume 6.9; Platelet Count 186 k/uL (150-450); RBC 3.54 m/uL (4.30-5.90); RDW 18.1 % (11.5-15.5); WBC 8.9 k/uL (3.8-10.6)
[2019-06-12] MEDS ORDERED: NALOXONE 0.4 MG/ML 1 ML VIAL IV PRN (11:54)
[2019-06-12] MEDS ORDERED: MORPHINE SULFATE 4 MG/ML SYRINGE IV PRN (11:55)
[2019-06-12] MEDS ORDERED: ONDANSETRON 4 MG/2 ML VIAL IVP PRN (11:55)
[2019-06-12 12:43] LABS: Band Neutrophils % 9 %; Eosinophils # (M) 0.09 k/uL (0-0.7); Lymphocytes # (M) 1.07 k/uL (1.0-4.8); Metamyelocytes # (M) 0.36 k/uL (0); Metamyelocytes % 4 %; Monocytes # (M) 0.89 k/uL (0-1.0); Myelocytes # (M) 0.09 k/uL (0); Myelocytes % 1 %; Neutrophils % (M) 63 %; Nucleated Red Blood Cells 0 /100 WBC (0-0); Total Cells Counted 100
[2019-06-12 12:45] LABS: Polychromasia Present
[2019-06-12 12:46] LABS: Poikilocytosis (M) Present
--- NOTE | 2019-06-12 13:00 | CT ---
EXAM: CT Abdomen With Intravenous Contrast CLINICAL HISTORY: Abdominal pain TECHNIQUE: Axial computed tomography images of the abdomen with intravenous contrast. CTDI is 14.8 mGy and DLP is 1500.2 mGy-cm. This CT exam was performed using one or more of the following dose reduction techniques: automated exposure control, adjustment of the mA and/or kV according to patient size, and/or use of iterative reconstruction technique. CONTRAST: 80mL of isovue 300 COMPARISON: No prior FINDINGS: Lung bases: Bibasilar atelectasis/airspace disease, right worse than left. Heart: Coronary artery calcification. Mild pericardial thickening versus tiny pericardial fluid. Liver: Unremarkable. No mass. Gallbladder and bile ducts: Cholelithiasis. No CT evidence for acute cholecystitis. No ductal dilation. Pancreas: Unremarkable. No mass. No ductal dilation. Spleen: Unremarkable. No splenomegaly. Adrenals: Unremarkable. No mass. Kidneys and ureters: Small right renal lesion measuring less than 1 cm, probably benign cyst. 2 cm cyst in the upper left kidney. Nonspecific perinephric soft tissue stranding. Stomach and bowel: Diverticulosis. No CT evidence for acute diverticulitis. Moderate gastric distention. Multiple fluid-filled dilated small bowel loops scattered throughout the abdomen and pelvis. Decompressed distal small bowel loops in the right side of the abdomen. Suspect luminal caliber change in the right lower abdomen. Markedly dilated bowel loop in the pelvis associated with surgical sutures which may reflect [id number] anastomosis and postsurgical change. Appendix: Appendix not well-visualized. No secondary signs for appendicitis. Intraperitoneal space: Unremarkable. No free air. No significant fluid collection. Bones/joints: Degenerative changes in the visualized spine. No acute fracture. No dislocation. Soft tissues: Small fat-containing inguinal hernias bilaterally. Vasculature: Vascular calcification in the left renal hilum. Atherosclerotic calcification in the abdominal aorta. Vascular congestion suspected. No abdominal aortic aneurysm. Lymph nodes: Unremarkable. No enlarged lymph nodes. IMPRESSION: 1. Findings consistent with distal small bowel obstruction. 2. Gastric distention filled with fluid/ingested material. 3. No free fluid or free air. 4. Diverticulosis. No CT evidence for acute diverticulitis. <MYCVCSECTION> [employer] 06/12/19 05:42 Verify Receipt Verified receipt with CAT for Dr. Liu on 06/12 05:42 (-04:00)
[2019-06-12] MEDS ORDERED: MORPHINE SULFATE 4 MG/ML SYRINGE IVP PRN (13:49)
[2019-06-12] MEDS: HYDROmorphone 1 MG/ML 1 ML SYRINGE IVP PRN (19:36)
[2019-06-12] MEDS: SODIUM CHLORIDE 0.9% 1,000 ML IV SCH ×3 (19:37→22:00)
--- NOTE | 2019-06-12 22:53 | P.HPIM ---
History of Present Illness H&P Date: 06/12/19 Chief Complaint: abdominal distention History present complaint: This is a pleasant 79-year-old patient of Dr. Roxie Melendez. Chronic stable medical conditions include coronary artery disease, CHF with EF of 50-65%, moderate aortic stenosis with sclerosis, COPD, GERD, hyperlipidemia, hypertension, primary [place] arthritis,(s) sleep apnea, hypothyroid. 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 Patient is currently being treated with chemotherapy for the last dose. 2 weeks ago. History of Demetra fundoplication, As in the past has had small bowel obstruction with resection colostomy and reversal of the same. Also had prostate cancer treated with radiation.. Yesterday evening after supper patient started having increasing abdominal pain and distention aggressively became much worse. Had nausea and not able to throw up. Presented to the ER. Patient is found to have small bowel obstruction per computed tomography scan. NG tube was placed. When I saw the patient does morning he had possible status. Abdomen is slightly less distended. Dr. Pineda from general surgery was consulted. No fever no chills. Review of systems: GEN.: Tired EYES: None HEENT: None NECK: None RESPIRATORY: Baselines of shortness of breath CARDIOVASCULAR: None GASTROINTESTINAL: As above GENITOURINARY: None MUSCULOSKELETAL: Some pain in the joints LYMPHATICS: None HEMATOLOGICAL: None PSYCHIATRY: None NEUROLOGICAL: None Past medical history: Include Coronary artery disease with stent and acute RI earlier this year, stage IV adenocarcinoma of the lung on chemotherapy, history of Demetra fundoplication, COPD in an ex-smoker, hypothyroidism, essential hypertension, hyperlipidemia, obstructive sleep apnea, CHF with diastolic dysfunction, moderate aortic stenosis with sclerosis. In January of this year had a GI bleed. EGD was unremarkable. Social history: . Smoked from age of 14 through age of 81. [employer]. Retired. Family history: sister had rectal cancer Physical examination: VITAL SIGNS: 98.2, 91, 16, 131/91, 93% room air GENERAL: Average built, laying in bed, tired appearing with NG tube. EYES: Pupils equal. Conjunctiva normal. HEENT: External appearance of nose and ears normal, oral cavity dry with NG tube. NECK: JVD not raised; masses not palpable. HEART: First and second heart sounds are normal; no edema. LUNGS: Respiratory rate normal; decreased breath sounds. ABDOMEN: Soft, distended, hyperactive bowel sounds, mildly tender, liver spleen not palpable, no masses palpable. PSYCH: Alert and oriented x3; mood and affect normal. NEUROLOGICAL: Cranial nerves grossly intact; no facial asymmetry, power and sensation grossly intact. LYMPHATICS: No lymph nodes palpable in the axilla and neck INVESTIGATIONS, reviewed in the clinical context: White count 8.9, hemoglobin 11.6, weight is 186, Potassium 5.1 bun 27 crit in 1.55 Patient's bun/creatinine unit of this year was 18/1.18 Computed tomography scan-of the abdomen-distal small bowel obstruction, gastric distention, colonic diverticulosis Assessment: -Acute small bowel obstruction in a patient's a prior small bowel obstruction with surgery resection, likely from fibrotic bands -Chronic diverticulosis, asymptomatic -Acute gastric distention and a patient with this and fundoplication -Coronary artery disease with a prior history of stent and acute RI in January of this year. -Stage IV adenocarcinoma of the lung on chemotherapy -COPD in an ex-smoker -Hypothyroidism -Essential hypertension -Hyperlipidemia -Obstructive sleep apnea -Chronic congestive heart failure from gastric dysfunction EF 50-60% -Moderate aortic stenosis with sclerosis nonrheumatic - Plan: -Patient is put on NG tube. To suction. Getting IV fluids. Dr. Pineda was consulted. Due to prophylaxis. Switch Synthroid to IV. And IV Pepcid. There is some clinical response. Decreased distention of the abdomen and some possible status. Care was discussed with the patient. Questions were answered. They sit up as tolerated. 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, 07/2018 SOB with exertion/cat scan showed multiple opacities L lower lung-had bronch/BAL and is currently being treated with chemotherapy again with last dose 2 weeks ago, diverticular dis ease, SBO with resection/colostomy/reversal of colostomy, prostate cancer with radiation tx, skin cancer removed from face, hypothyroid, occasional low back pain, pt and spouse denied [facility] admission dated 12/26/18 as including diagnosis of RI/CHF History of Any Multi-Drug Resistant Organisms: None Reported Past Surgical History: Bowel Resection, Heart Catheterization, Heart Catheterization With Stent, Orthopedic Surgery, Tonsillectomy Additional Past Surgical History / Comment(s): 01/07/19 bronchoscopy with BAL, past bronchoscopies/bx, PCI with stent 2006, bilateral reconstructive ear surgery and gland removed under jaw, bowel resection d/t rupture with colostomy later reversed, L cataract removal, demetra fundoloplasty, bilateral total shoulders/knees, L knee arthroscopy x 2, EGD, colonoscopy, prostate bx, bilateral exciscion gynecomastia, skin cancer removals. Past Anesthesia/Blood Transfusion Reactions: No Reported Reaction, Motion Sickness Date of Last Stent Placement:: 2006 Smoking Status: Former smoker - Past Family History Mother Family Medical History: Cancer Additional Family Medical History / Comment(s): MULTIPLE MEYLOMA Father Family Medical History: Cancer Additional Family Medical History / Comment(s): LUNG CANCER Sister(s) Family Medical History: Cancer Additional Family Medical History / Comment(s): sister had rectal cancer. Son(s) Family Medical History: Cancer Additional Family Medical History / Comment(s): Son has hodgkins lymphoma Medications and Allergies Home Medications Medication Instructions Recorded Confirmed Type FLUoxetine HCL [PROzac] 20 mg PO DAILY 08/05/14 06/12/19 History Levothyroxine Sodium [Synthroid] 50 mcg PO DAILY 08/05/14 06/12/19 History Montelukast [Singulair] 10 mg PO HS 08/05/14 06/12/19 History Omeprazole [PriLOSEC] 40 mg PO DAILY 08/05/14 06/12/19 History Pravastatin Sodium [Pravachol] 40 mg PO HS 08/05/14 06/12/19 History Tamsulosin [Flomax] 0.4 mg PO DAILY 08/05/14 06/12/19 History Folic Acid 1 mg PO DAILY 02/12/18 06/12/19 History Fluticasone/Salmeterol [Advair 1 puff INHALATION RT-BID 12/26/18 06/12/19 History 250-50 Diskus] Fluticasone/Salmeterol [Advair Hfa 2 puff INHALATION RT-DAILY PRN 06/12/19 06/12/19 History 230-21 Mcg Inhaler] amLODIPine [Norvasc] 5 mg PO DAILY 06/12/19 06/12/19 History Allergies Allergy/AdvReac Type Severity Reaction Status Date / Time No Known Allergies Allergy Verified 06/12/19 07:35 Physical Exam Vitals: Vital Signs Temp Pulse Pulse Resp BP BP Pulse Ox 06/12/19 18:54 98.3 F 83 18 153/83 90 L 06/12/19 15:02 98.8 F 64 18 154/63 94 L 06/12/19 11:00 90 18 142/92 93 L 06/12/19 10:00 93 L 06/12/19 09:33 98.2 F 91 16 131/91 93 L 06/12/19 08:03 91 16 136/97 93 L Intake and Output 06/12/19 06/12/19 06/12/19 06:59 14:59 22:59 Intake Total 125 Output Total 750 Balance -625 Intake: Intake, IV Titration 125 Amount Sodium Chloride 0.9% 1, 125 000 ml @ 125 mls/hr IV . Q8H [facility] Rx#:[id number] Output: Gastric Drainage 450 Urine 300 Other: Voiding Method Urinal # Voids 1 Weight 96 kg Results CBC & Chem 7: 06/12/19 03:33 06/12/19 03:33 Labs: Abnormal Lab Results - Last 24 Hours (Table) 06/12/19 06/12/19 Range/Units 03:33 03:33 RBC 3.54 L (4.30-5.90) m/uL Hgb 11.6 L (13.0-17.5) gm/dL Hct 35.3 L (39.0-53.0) % RDW 18.1 H (11.5-15.5) % Metamyelocytes # (Man) 0.36 H (0) k/uL Myelocytes # (Manual) 0.09 H (0) k/uL BUN 27 H (9-20) mg/dL Creatinine 1.55 H (0.66-1.25) mg/dL Glucose 153 H (74-99) mg/dL Calcium 10.5 H (8.4-10.2) mg/dL ALT 78 H (21-72) U/L Alkaline Phosphatase 128 H (38-126) U/L Amylase 117 H (30-110) U/L Lipase 512 H (23-300) U/L Thrombosis Risk Factor Assmnt - Choose All That Apply Any of the Below Risk Factors Present?: Yes Each Factor Represents 1 point: Abnormal pulmonary function (COPD), Obesity (BMI >25) Other Risk Factors: Yes Each Risk Factor Represents 2 Points: Malignancy Each Risk Factor Represents 3 Points: Age 75 years or older Other congenital or acquired thrombophilia - If yes, enter type in comment: No Thrombosis Risk Factor Assessment Total Risk Factor Score: 7 Thrombosis Risk Factor Assessment Level: High Risk
[2019-06-13] MEDS: HYDROmorphone 1 MG/ML 1 ML SYRINGE IVP PRN ×2 (00:03→05:28)
[2019-06-13] MEDS: ENOXAPARIN 40 MG/0.4 ML SYRINGE SQ SCH ×2 (00:03→19:53)
[2019-06-13] MEDS: IPRATROPIUM-ALBUTEROL 3 ML NEB INHALATION SCH ×5 (01:03→20:49)
[2019-06-13] MEDS ORDERED: LEVOTHYROXINE IVP 100 MCG/5 ML VIAL IV SCH (06:30)
[2019-06-13] MEDS: SODIUM CHLORIDE 0.9% 1,000 ML IV SCH ×4 (07:20→22:39)
[2019-06-13 08:27] LABS: Anisocytosis Slight; HCT 29.8 % (39.0-53.0); Hypochromasia Slight; MCH 33.7 pg (25.0-35.0); MCHC 32.8 g/dL (31.0-37.0); MCV 102.8 fL (80.0-100.0); Macrocytosis Moderate; Platelet Count 154 k/uL (150-450); RDW 18.1 % (11.5-15.5); WBC 5.7 k/uL (3.8-10.6)
[2019-06-13 08:31] LABS: HGB 9.8 gm/dL (13.0-17.5)
[2019-06-13 08:32] LABS: Calcium 9.1 mg/dL (8.4-10.2); Potassium 4.7 mmol/L (3.5-5.1)
--- NOTE | 2019-06-13 08:52 | P.GSCN ---
History of Present Illness Consult date: 06/12/19 History of present illness: Seen and evaluated. HE comes in with small bowel obstruction. NGT present. He has started to pass some flatus at least 3 times. Multiple images reviewed consistent with distal small bowel obstruction. Will re-evaluated with repeat AXR. Ideally conservative management with current medical history. Past Medical History Past Medical History: Asthma, Coronary Artery Disease (CAD), Cancer, Heart Failu re, COPD, GERD/Reflux, Hyperlipidemia, Hypertension, Osteoarthritis (OA), Pneumonia, Respiratory Disorder, Sleep Apnea/CPAP/BIPAP, Thyroid Disorder Additional Past Medical History / Comment(s): 2015 L lung adenocarcinoma/malignant pleural effusion, 07/2018 SOB with exertion/cat scan showed multiple opacities L lower lung-had bronch/BAL and is currently being treated with chemotherapy again with last dose 2 weeks ago, diverticular disease, SBO with resection/colostomy/reversal of colostomy, prostate cancer with radiation tx, skin cancer removed from face, hypothyroid, occasional low back pain, pt and spouse denied [facility] admission dated 12/26/18 as including diagnosis of SD/CHF History of Any Multi-Drug Resistant Organisms: None Reported Past Surgical History: Bowel Resection, Heart Catheterization, Heart Catheterization With Stent, Orthopedic Surgery, Tonsillectomy Additional Past Surgical History / Comment(s): 01/07/19 bronchoscopy with BAL, past bronchoscopies/bx, PCI with stent 2006, bilateral reconstructive ear surgery and gland removed under jaw, bowel resection d/t rupture with colostomy later reversed, L cataract removal, demetra fundoloplasty, bilateral total shoulders/knees, L knee arthroscopy x 2, EGD, colonoscopy, prostate bx, bilateral exciscion gynecomastia, skin cancer removals. Past Anesthesia/Blood Transfusion Reactions: No Reported Reaction, Motion Sickness Date of Last Stent Placement:: 2006 Smoking Status: Former smoker - Past Family History Mother Family Medical History: Cancer Additional Family Medical History / Comment(s): MULTIPLE MEYLOMA Father Family Medical History: Cancer Additional Family Medical History / Comment(s): LUNG CANCER Sister(s) Family Medical History: Cancer Additional Family Medical History / Comment(s): sister had rectal cancer. Son(s) Family Medical History: Cancer Additional Family Medical History / Comment(s): Son has hodgkins lymphoma Medications and Allergies Home Medications Medication Instructions Recorded Confirmed Type FLUoxetine HCL [PROzac] 20 mg PO DAILY 08/05/14 06/12/19 History Levothyroxine Sodium [Synthroid] 50 mcg PO DAILY 08/05/14 06/12/19 History Montelukast [Singulair] 10 mg PO HS 08/05/14 06/12/19 History Omeprazole [PriLOSEC] 40 mg PO DAILY 08/05/14 06/12/19 History Pravastatin Sodium [Pravachol] 40 mg PO HS 08/05/14 06/12/19 History Tamsulosin [Flomax] 0.4 mg PO DAILY 08/05/14 06/12/19 History Folic Acid 1 mg PO DAILY 02/12/18 06/12/19 History Fluticasone/Salmeterol [Advair 1 puff INHALATION RT-BID 12/26/18 06/12/19 History 250-50 Diskus] Fluticasone/Salmeterol [Advair Hfa 2 puff INHALATION RT-DAILY PRN 06/12/19 06/12/19 History 230-21 Mcg Inhaler] amLODIPine [Norvasc] 5 mg PO DAILY 06/12/19 06/12/19 History Allergies Allergy/AdvReac Type Severity Reaction Status Date / Time No Known Allergies Allergy Verified 06/12/19 07:35 Surgical - Exam Vital Signs Pulse Resp BP Pulse Ox 91 16 136/97 93 L 06/12/19 08:03 06/12/19 08:03 06/12/19 08:03 06/12/19 08:03 Results - Labs 06/13/19 07:31 06/13/19 07:31 Abnormal Lab Results - Last 24 Hours (Table) 06/12/19 06/12/19 Range/Units 03:33 03:33 RBC 3.54 L (4.30-5.90) m/uL Hgb 11.6 L (13.0-17.5) gm/dL Hct 35.3 L (39.0-53.0) % RDW 18.1 H (11.5-15.5) % Metamyelocytes # (Man) 0.36 H (0) k/uL Myelocytes # (Manual) 0.09 H (0) k/uL BUN 27 H (9-20) mg/dL Creatinine 1.55 H (0.66-1.25) mg/dL Glucose 153 H (74-99) mg/dL Calcium 10.5 H (8.4-10.2) mg/dL ALT 78 H (21-72) U/L Alkaline Phosphatase 128 H (38-126) U/L Amylase 117 H (30-110) U/L Lipase 512 H (23-300) U/L Diabetes panel 06/12/19 Range/Units 03:33 Sodium 138 (137-145) mmol/L Potassium 5.1 (3.5-5.1) mmol/L Chloride 103 (98-107) mmol/L Carbon Dioxide 24 (22-30) mmol/L BUN 27 H (9-20) mg/dL Creatinine 1.55 H (0.66-1.25) mg/dL Glucose 153 H (74-99) mg/dL Calcium 10.5 H (8.4-10.2) mg/dL AST 56 (17-59) U/L ALT 78 H (21-72) U/L Alkaline Phosphatase 128 H (38-126) U/L Total Protein 7.6 (6.3-8.2) g/dL Albumin 4.4 (3.5-5.0) g/dL Calcium panel 06/12/19 Range/Units 03:33 Calcium 10.5 H (8.4-10.2) mg/dL Albumin 4.4 (3.5-5.0) g/dL Pituitary panel 06/12/19 Range/Units 03:33 Sodium 138 (137-145) mmol/L Potassium 5.1 (3.5-5.1) mmol/L Chloride 103 (98-107) mmol/L Carbon Dioxide 24 (22-30) mmol/L BUN 27 H (9-20) mg/dL Creatinine 1.55 H (0.66-1.25) mg/dL Glucose 153 H (74-99) mg/dL Calcium 10.5 H (8.4-10.2) mg/dL Adrenal panel 06/12/19 Range/Units 03:33 Sodium 138 (137-145) mmol/L Potassium 5.1 (3.5-5.1) mmol/L Chloride 103 (98-107) mmol/L Carbon Dioxide 24 (22-30) mmol/L BUN 27 H (9-20) mg/dL Creatinine 1.55 H (0.66-1.25) mg/dL Glucose 153 H (74-99) mg/dL Calcium 10.5 H (8.4-10.2) mg/dL Total Bilirubin 0.3 (0.2-1.3) mg/dL AST 56 (17-59) U/L ALT 78 H (21-72) U/L Alkaline Phosphatase 128 H (38-126) U/L Total Protein 7.6 (6.3-8.2) g/dL Albumin 4.4 (3.5-5.0) g/dL
--- NOTE | 2019-06-13 10:50 | XR ---
EXAMINATION TYPE: XR abdomen 2V DATE OF EXAM: 06/13/2019 COMPARISON: 06/12/2019 earlier exam INDICATION: Small bowel obstruction TECHNIQUE: Single view abdomen upright view FINDINGS: There is a nonspecific bowel gas pattern. The small bowel loops with air-fluid levels have diminished . Some nonspecific colonic bowel gas is present. Nasogastric tube is within the proximal left upper q uadrant of the abdomen. Psoas margins are normal. No organomegaly is present. IMPRESSION: 1. Resolving small bowel gas. Some residual remains within the mid abdomen with an air-fluid level. C ontinued follow-up is recommended. 2. Nasogastric tube tip is in the proximal left upper quadrant of the abdomen. Consider some advancem ent of approximately 6 cm.
--- NOTE | 2019-06-13 14:07 | P.PN ---
Subjective Progress Note Date: 06/13/19 CHIEF COMPLAINT: Abdominal pain HISTORY OF PRESENT ILLNESS: Patient seen and examined this morning at the bedside. Patient reports passing flatus. He reports having multiple soft bowel movements overnight and a liquid stool this morning. He denies abdominal pain. Denies nausea. NG tube to low intermittent suction. Nursing reports less than 200 mL output from NG. Abdominal x-ray completed today reveals small bowel loops with air-fluid levels but have diminished from previous examination. Some nonspecific colonic bowel gas is present. PHYSICAL EXAM: VITAL SIGNS: Reviewed. GENERAL: Well-developed in no acute distress. HEENT: NG tube low intermittent suction. No sclera icterus. Extraocular movements grossly intact. Moist buccal mucosa. Head is atraumatic, normocephalic. Hears conversational speech. No nasal drainage. NECK: Supple without lymphadenopathy. CHEST: Non-labored respirations and equal bilateral excursions. CARDIOVASCULAR: Regular rate with regular rhythm. Palpable 2+ radial pulses. ABDOMEN: Soft. Nondistended. Nontender. Positive bowel sounds. MUSCULOSKELETAL: No clubbing, cyanosis or edema. NEUROLOGIC: No focal or lateralizing signs. Cranial nerves II through XII grossly intact. PSYCH: Appropriate affect. Alert and oriented to person, place and time. SKIN: Well perfused. Good skin turgor. ASSESSMENT: 1. Small bowel obstruction, resolving PLAN: 1. Discontinue NG tube 2. Begin clear liquid diet Nurse practitioner note has been reviewed by physician. Signing provider agrees with the documented findings, assessment, and plan of care. Objective - Vital Signs Vital signs: Vital Signs Temp 98.6 F 06/13/19 07:33 Pulse 80 06/13/19 08:02 Resp 16 06/13/19 07:33 BP 159/93 06/13/19 07:33 Pulse Ox 95 06/13/19 07:33 Intake & Output 06/12/19 06/13/19 06/13/19 18:59 06:59 18:59 Intake Total 2125 Output Total 350 920 Balance -350 1205 Weight 96 kg Intake: Intake, IV Titration 2125 Amount Sodium Chloride 0.9% 1, 5 000 ml @ 125 mls/hr IV . Q8H JUSTEN Rx#:[id number] Output: Gastric Drainage 350 200 Urine 720 Other: Voiding Method Urinal Urinal # Voids 1 # Bowel Movements 3 - Labs CBC & Chem 7: 06/13/19 07:31 06/13/19 07:31 Labs: Abnormal Lab Results - Last 24 Hours (Table) 06/13/19 06/13/19 Range/Units 07:31 07:31 RBC 2.90 L (4.30-5.90) m/uL Hgb 9.8 L D (13.0-17.5) gm/dL Hct 29.8 L (39.0-53.0) % MCV 102.8 H (80.0-100.0) fL RDW 18.1 H (11.5-15.5) % Chloride 110 H (98-107) mmol/L BUN 25 H (9-20) mg/dL Assessment and Plan (1) Small bowel obstruction Current Visit: Yes Status: Acute Code(s): K56.609 - UNSP INTESTNL OBST, UNSP TO PARTIAL VERSUS COMPLETE OBST SNOMED Code(s): 573256493
[2019-06-13] MEDS ORDERED: SALMETEROL INHALATION PRN (20:59)
[2019-06-13] MEDS ORDERED: FLUTICASONE INHALATION PRN (20:59)
[2019-06-13] MEDS ORDERED: PRAVASTATIN SODIUM 40 MG TAB PO SCH (21:00)
[2019-06-13] MEDS ORDERED: MONTELUKAST 10 MG TAB PO SCH (21:00)
[2019-06-13] MEDS: amLODIPine 5 MG TAB PO SCH (21:59)
[2019-06-13] MEDS: FOLIC ACID 1 MG TAB PO SCH (21:59)
[2019-06-13] MEDS: TAMSULOSIN 0.4 MG CAP.ER.24H PO SCH (21:59)
[2019-06-13] MEDS: FLUoxetine HCL 20 MG CAP PO SCH (21:59)
[2019-06-13] MEDS: PANTOPRAZOLE 40 MG TABLET PO SCH (22:00)
--- NOTE | 2019-06-13 22:34 | P.PN ---
Progress Note - Text Progress Note Date: 06/13/19 Chief Complaint: abdominal distention History present complaint: This is a pleasant 79-year-old patient of Dr. Roxie Melendez. Chronic stable medical conditions include coronary artery disease, CHF with EF of 50-65%, moderate aortic stenosis with sclerosis, COPD, GERD, hyperlipidemia, hypertension, primary [place] arthritis,(s) sleep apnea, hypothyroid. 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 Patient is currently being treated with chemotherapy for the last dose. 2 weeks ago. History of Grabiel fundoplication, As in the past has had small bowel obstruction with resection colostomy and reversal of the same. Also had prostate cancer treated with radiation.. Yesterday evening after supper patient started having increasing abdominal pain and distention aggressively became much worse. Had nausea and not able to throw up. Presented to the ER. Patient is found to have small bowel obstruction per computed tomography scan. NG tube was placed. When I saw the patient does morning he had possible status. Abdomen is slightly less distended. Dr. Pineda from general surgery was consulted. No fever no chills. Admitted with-acute small bowel obstruction, felt to be from scar tissue from prior abdominal surgery, acute gastric distention. NG tube was placed. Today-feeling much better. Seen by surgery earlier today. X-ray was looking better. NG tube was discontinued. Started on clear liquid. Patient passed flatus. No nausea vomiting up to the bathroom. Review of systems: Was done for constitutional, cardiovascular, GI, pulmonary. relevant finding as above Active Medications Albuterol/Ipratropium (Duoneb 0.5 Mg-3 Mg/3 Ml Soln) 3 ml INHALATION RT-QID [facility] Last Admin: 06/13/19 20:49 Dose: 3 ml Documented by: Amlodipine Besylate (Norvasc) 5 mg PO DAILY [facility] Last Admin: 06/13/19 21:59 Dose: 5 mg Documented by: Budesonide/Formoterol Fumarate (Symbicort 80-4.5 Mcg Inhaler) 2 puff INHALATION RT-BID [facility] Enoxaparin Sodium (Lovenox) 40 mg SQ DAILY@2100 [facility] Last Admin: 06/13/19 19:53 Dose: 40 mg Documented by: Fluoxetine HCl (Prozac) 20 mg PO DAILY [facility] Last Admin: 06/13/19 21:59 Dose: 20 mg Documented by: Folic Acid (Folic Acid) 1 mg PO DAILY [facility] Last Admin: 06/13/19 21:59 Dose: 1 mg Documented by: Hydromorphone HCl (Dilaudid) 1 mg IVP Q3HR PRN PRN Reason: Severe Pain Last Admin: 06/13/19 05:28 Dose: 1 mg Documented by: Sodium Chloride (Saline 0.9%) 1,000 mls @ 125 mls/hr IV .Q8H [facility] Last Admin: 06/13/19 22:03 Dose: Not Given Documented by: Levothyroxine Sodium (Synthroid Ivp) 50 mcg IV Q48H [facility] Last Admin: 06/13/19 06:06 Dose: 50 mcg Documented by: Montelukast Sodium (Singulair) 10 mg PO HS [facility] Last Admin: 06/13/19 21:59 Dose: 10 mg Documented by: Morphine Sulfate (Morphine Sulfate (Inj)) 4 mg IVP Q4HR PRN PRN Reason: SEVERE PAIN Naloxone HCl (Narcan) 0.2 mg IV Q2M PRN PRN Reason: OPIOID REVERSAL Ondansetron HCl (Zofran) 4 mg IVP Q8HR PRN PRN Reason: NAUSEA AND VOMITING Pantoprazole Sodium (Protonix) 40 mg PO DAILY [facility] Last Admin: 06/13/19 22:00 Dose: 40 mg Documented by: Pravastatin Sodium (Pravachol) 40 mg PO HS [facility] Last Admin: 06/13/19 21:59 Dose: 40 mg Documented by: Tamsulosin HCl (Flomax) 0.4 mg PO DAILY [facility] Last Admin: 06/13/19 21:59 Dose: 0.4 mg Documented by: Physical examination: VITAL SIGNS: 98.6, 74, 16, 159/93, 95% room air GENERAL: Laying in bed, comfortable EYES: Pupils equal. Conjunctiva normal. HEENT: External appearance of nose and ears normal, oral cavity normal NECK: JVD not raised; masses not palpable. HEART: First and second heart sounds are normal; no edema. LUNGS: Respiratory rate normal; decreased breath sounds. ABDOMEN: Soft, nontender, soft, liver spleen not palpable, no masses palpable. PSYCH: Alert and oriented x3; mood and affect normal. INVESTIGATIONS, reviewed in the clinical context: White count 5.7 hemoglobin 9.8 pressure 4.7 creatinine 1.08 Abdominal x-ray film improving obstruction Previous testing White count 8.9, hemoglobin 11.6, weight is 186, Potassium 5.1 bun 27 crit in 1.55 Patient's bun/creatinine unit of this year was 18/1.18 Computed tomography scan-of the abdomen-distal small bowel obstruction, gastric distention, colonic diverticulosis Assessment: -Acute small bowel obstruction in a patient's a prior small bowel obstruction with surgery resection, likely from fibrotic bands, responded well to NG tube now discontinued -Chronic diverticulosis, asymptomatic -Acute gastric distention and a patient with Grabiel fundoplication, clinically improved -Coronary artery disease with a prior history of stent and acute LA in January of this year. -Stage IV adenocarcinoma of the lung on chemotherapy -COPD in an ex-smoker -Hypothyroidism -Essential hypertension -Hyperlipidemia -Obstructive sleep apnea -Chronic congestive heart failure from gastric dysfunction EF 50-60% -Moderate aortic stenosis with sclerosis nonrheumatic - Plan: Doing better. NG tube is out. Started on clear liquids. Diet is being advanced. Encouraged to ambulate. Seen by general surgery. Home medications will be resumed.
[2019-06-14 07:23] VITALS: BP 179/93; RESP 16; TEMP 98
[2019-06-14] MEDS: IPRATROPIUM-ALBUTEROL 3 ML NEB INHALATION SCH ×2 (07:32→11:25)
[2019-06-14] MEDS ORDERED: SYMBICORT 80-4.5 MCG INHALER INHALATION SCH (08:00)
[2019-06-14] MEDS: PANTOPRAZOLE 40 MG TABLET PO SCH (08:36)
[2019-06-14] MEDS: amLODIPine 5 MG TAB PO SCH (08:36)
[2019-06-14] MEDS: FLUoxetine HCL 20 MG CAP PO SCH (08:36)
[2019-06-14] MEDS: TAMSULOSIN 0.4 MG CAP.ER.24H PO SCH (08:36)
[2019-06-14] MEDS: FOLIC ACID 1 MG TAB PO SCH (08:36)
--- NOTE | 2019-06-14 09:43 | P.PN ---
Subjective Progress Note Date: 06/14/19 Okay to discharge from surgery standpoint. He tolerated regular diet. Objective - Vital Signs Vital signs: Vital Signs Temp 98.0 F 06/14/19 07:22 Pulse 76 06/14/19 08:03 Resp 16 06/14/19 07:22 BP 179/93 06/14/19 07:22 Pulse Ox 93 L 06/14/19 07:22 Intake & Output 06/13/19 06/14/19 06/14/19 18:59 06:59 18:59 Other: Voiding Method Urinal Urinal # Voids 2 1 - Labs CBC & Chem 7: 06/13/19 07:31 06/13/19 07:31
[2019-06-14 11:37] VITALS: PULSE 76
[2019-06-15] MEDS ORDERED: LEVOTHYROXINE 50 MCG TAB PO SCH (06:30)
== END 2019-06-14 12:57 | disposition home or self-care (01) | DRG 389 ==
LOC: EC 03:07 → 4SSUR 05:50 → EC 05:50 → 4SSUR 12:15
PROVIDERS: ADMIT Hospitalist; ATTEND Hospitalist
DX: K56.50 Intestinal adhesions [bands], unspecified as to partial versus complete obstruction (principal); C34.92 Malignant neoplasm of unspecified part of left bronchus or lung; I50.32 Chronic diastolic (congestive) heart failure; I11.0 Hypertensive heart disease with heart failure; J44.9 Chronic obstructive pulmonary disease, unspecified; I35.0 Nonrheumatic aortic (valve) stenosis; E03.9 Hypothyroidism, unspecified; E78.5 Hyperlipidemia, unspecified; G47.33 Obstructive sleep apnea (adult) (pediatric); I25.10 Atherosclerotic heart disease of native coronary artery without angina pectoris; I25.2 Old myocardial infarction; K21.9 Gastro-esophageal reflux disease without esophagitis; K57.30 Diverticulosis of large intestine without perforation or abscess without bleeding; M19.90 Unspecified osteoarthritis, unspecified site; Z79.51 Long term (current) use of inhaled steroids; Z79.890 Hormone replacement therapy; Z79.899 Other long term (current) drug therapy; Z85.46 Personal history of malignant neoplasm of prostate; Z85.828 Personal history of other malignant neoplasm of skin; Z87.891 Personal history of nicotine dependence; Z92.3 Personal history of irradiation; Z95.5 Presence of coronary angioplasty implant and graft; Z90.49 Acquired absence of other specified parts of digestive tract; Z98.42 Cataract extraction status, left eye; Z96.1 Presence of intraocular lens; Z96.653 Presence of artificial knee joint, bilateral; Z96.612 Presence of left artificial shoulder joint; Z96.611 Presence of right artificial shoulder joint; Z87.01 Personal history of pneumonia (recurrent); Z80.0 Family history of malignant neoplasm of digestive organs; Z80.1 Family history of malignant neoplasm of trachea, bronchus and lung; Z80.7 Family history of other malignant neoplasms of lymphoid, hematopoietic and related tissues
CPT/HCPCS: 74018; 74019; 74177; 80048; 80053; 82150; 83605; 83690; 85025; 85027; 94640; 96361; 96374; 96375; 96376; 99285

== ENCOUNTER → 2019-09-04 | Outpatient (CLI) | payer MEDICARE ==
--- NOTE | 2019-09-04 15:47 | CT ---
EXAMINATION TYPE: CT chest w con DATE OF EXAM: 09/04/2019 COMPARISON: 06/05/2019 and 03/11/2019 HISTORY: 79-year-old male observation for metastases, Lung cancer. TECHNIQUE: Contiguous axial scanning of the chest after the administration of 80 mL of Isovue 300. C oronal/sagittal reconstructions performed. CT DLP: 468.5mGycm. Automatic exposure control utilized for a dose reduction. FINDINGS: Heart normal size with a small pericardial effusion measuring up to 9 mm thick posteriorly. Three-ves lindy coronary artery calcifications are present. Aortic valvular calcifications. Ascending aorta ectatic at 3.7 cm. Mild atherosclerotic calcifications with conventional arch vessel branching anatomy. Moderate atherosclerotic plaque and calcifications throughout the descending thora cic aorta. Prominent 1 cm prevascular space lymph node is unchanged. Otherwise, no thoracic lymphadenopathy. Large caliber to the main right and left pulmonary arteries measuring up to 2.9 cm suggesting underly ing pulmonary arterial hypertension. Chronic pleural parenchymal scarring left base with overall similar to slightly improved interstitial thickening throughout the basilar left lower lobe. 1.3 cm subpleural nodule peripheral right base, axial image 50 unchanged from 03/11/2019. Subpleural nodule right paraspinal region along the right upper lobe measures 2.8 x 1.6 cm, unchanged . Minimal emphysematous change. Visualized upper abdomen shows partial visualization of a cyst upper pole left kidney. Bones: No osseous destructive process. Right shoulder arthroplasty and reverse left shoulder arthropl asty. IMPRESSION: 1. Patchy and interstitial changes throughout the left lower lobe similar to minimally improved from 06/05/2019, probable posttreatment change. 2. 1.3 cm peripheral right basilar pulmonary nodule and a 2.8 x 1.6 cm subpleural paraspinal nodule a long the right upper lobe are unchanged. A prominent 1 cm prevascular space lymph node is also stable . 3. No new or enlarging nodules. 4. CAD and persisting small pericardial effusion.
== END | disposition home or self-care (01) ==
LOC: RADCTMAIN 13:02
PROVIDERS: ATTEND Internal Medicine Hematology & Oncology
DX: I25.10 Atherosclerotic heart disease of native coronary artery without angina pectoris (principal); I31.3 Pericardial effusion (noninflammatory); C34.11 Malignant neoplasm of upper lobe, right bronchus or lung
CPT/HCPCS: 82565; 84520; 71260; 36415; Q9967

== ENCOUNTER → 2019-10-24 | Outpatient (CLI) | payer MEDICARE ==
--- NOTE | 2019-10-25 13:58 | MR ---
"EXAMINATION TYPE: MR brain wo/w con DATE OF EXAM: 10/24/2019 COMPARISON: NONE HISTORY: Dizziness, diplopia, hx lung ca TECHNIQUE: Multiplanar, multisequence images of the brain and brainstem is performed without and with IV contras t, utilizing 10 mL intravenous Gadavist . FINDINGS: There is a 5 mm abnormal focus of restricted diffusion within the precentral gyrus of the p osterior right frontal lobe. This has corresponding low signal on ADC map representing a punctate lac unar infarct that is acute. There is no extra-axial fluid collection. Few foci of nonspecific white matter change are scattered t hroughout the periventricular and subcortical white matter that are T2/FLAIR hyperintense more conflu ent in the periventricular white matter. Overall mild to moderate burden. Gliosis in the left tempora l lobe is seen from prior lacunar injury with central FLAIR CSF attenuation. The ventricular system and cisternal spaces are symmetrically prominent compatible with age-related volume loss. Midline structures demonstrate normal morphology. There is a nonenhancing 2 mm pineal gland cyst. Pr ominent arachnoid granulation is incidentally seen in the sagittal sinus. The craniocervical junction appears within normal limits. Post contrast images demonstrate no abnormal enhancement. The dural v enous sinuses appear patent. The visualized sinuses demonstrate mild circumferential mucosal thickeni ng of the maxillary and ethmoid sinuses as well as of the sphenoid sinus. Scant mucosal thickening in the frontal sinus. The right mastoid air cells are well aerated. Left mastoid air cells contain a sm all amount of fluid. Left ocular lenses surgically absent. IMPRESSION: 1. Punctate 4 mm acute lacunar infarct of the right posterior frontal lobe in the precentral gyrus. 2. No abnormal intracranial enhancement to suggest metastasis. 3. Old left temporal lacunar injury and mild to moderate burden nonspecific white matter change, like ly on the basis of chronic microangiopathy. A Yellow level critical message alert has been initiated for Kehinde Rutherford MD via the [employer] 0 | Critical Results System on 10/25/2019 1:55 PM. This message alert has been sent to Kehinde Rutherford MD via the preferences provided by the clinician for the receipt of Radiology Critical Findings. [facility] ID [id number]."
== END | disposition home or self-care (01) ==
LOC: RADMRIMAIN 15:43
PROVIDERS: ATTEND Internal Medicine Hematology & Oncology
DX: I63.81 Other cerebral infarction due to occlusion or stenosis of small artery (principal); Z85.118 Personal history of other malignant neoplasm of bronchus and lung
CPT/HCPCS: 70553; A9585

== ENCOUNTER 2019-11-18 14:37 | Inpatient (IN) | payer MEDICARE ==
[2019-11-18 15:01] VITALS: RESP 18
[2019-11-18] MEDS ORDERED: SODIUM CHLORIDE 0.9% 500 ML 500 ML IV STA (15:03)
[2019-11-18 15:16] LABS: Basophils % (A) 0 %; Eosinophils # (A) 0.2 k/uL (0-0.7); Eosinophils % (A) 3 %; HCT 36.2 % (39.0-53.0); Lymphocytes # (A) 0.8 k/uL (1.0-4.8); Lymphocytes % (A) 13 %; MCH 31.5 pg (25.0-35.0); MCHC 33.3 g/dL (31.0-37.0); MCV 94.6 fL (80.0-100.0); Mean Platelet Volume 8.3; Monocytes # (A) 0.1 k/uL (0-1.0); Monocytes % (A) 2 %; Neutrophils # (A) 4.9 k/uL (1.3-7.7); Neutrophils % (A) 81 %; Platelet Count 176 k/uL (150-450); RBC 3.82 m/uL (4.30-5.90); RDW 14.9 % (11.5-15.5)
--- NOTE | 2019-11-18 15:19 | XR ---
EXAMINATION TYPE: XR chest 2V DATE OF EXAM: 11/18/2019 COMPARISON: 01/16/2019 HISTORY: Chest pain, shortness of breath, and dizziness. Dysrhythmia. A strip COPD and CHF. TECHNIQUE: Frontal and lateral views of the chest are obtained. FINDINGS: There is no focal air space opacity, pleural effusion, or pneumothorax seen. Mild pulmona ry vascular congestion is seen, greater on the left than right given slight patient rotation. Interst itial changes are noted on the CT of 09/04/2019 on the left. The 1.3 cm peripheral right basilar pulmon mauro nodule is better seen on CT as well as a 2.8 cm subpleural paraspinal nodule along the right uppe r lobe. The cardiac silhouette size is mildly enlarged. The osseous structures are intact. Bilatera l humeral arthroplasties are seen. IMPRESSION: 1. Mild pulmonary vascular congestion exaggerated on the left given slight rotation. This appears sim ilar to the prior. Mildly enlarged cardiac mediastinal silhouette. Consider congestive heart failure. 2. The known right-sided pulmonary nodules are better seen on the prior CT.
[2019-11-18 15:24] LABS: INR 0.9 (<1.2); Partial Thromboplastin Time 23.5 sec (22.0-30.0); Prothrombin Time 9.5 sec (9.0-12.0)
[2019-11-18] MEDS ORDERED: DILTIAZEM DRIP BOLUS FROM BAG 1 MG SOLN IV ONE (15:25)
[2019-11-18 15:30] LABS: Albumin 3.7 g/dL (3.5-5.0); Calcium 9.2 mg/dL (8.4-10.2); Magnesium 1.6 mg/dL (1.6-2.3); Potassium 4.3 mmol/L (3.5-5.1); Total Bilirubin 0.4 mg/dL (0.2-1.3); Total Protein 6.7 g/dL (6.3-8.2)
[2019-11-18] MEDS ORDERED: DILTIAZEM 125 MG in SODIUM CHLORIDE 0.9% 100 ML IV SCH (15:30)
--- NOTE | 2019-11-18 15:53 | ED ---
General Adult HPI - General Chief complaint: Dizziness Stated complaint: SOB Time Seen by Provider: 11/18/19 14:45 Source: patient, RN notes reviewed, old records reviewed Mode of arrival: wheelchair Limitations: no limitations - History of Present Illness Initial comments: 79 -year-old male presents for evaluation of lightheadedness, episode of palpita tion and dyspnea and associated chest discomfort. Patient was at the hospital for an outpatient MRI, patient had received an MRI brain and MRI of his left orbit for ptosis of the left eyelid and very patient which is been ongoing and he has been evaluated by his oncologist for this over the past several weeks. He felt off warm flushed feeling across his chest and had exertional dyspnea as well as palpitations. No fever. No significant cough. No abdominal pain nausea vomiting. No URI symptoms. No history of arrhythmia. - Related Data Home Medications Medication Instructions Recorded Confirmed FLUoxetine HCL [PROzac] 20 mg PO DAILY 08/05/14 06/12/19 Levothyroxine Sodium [Synthroid] 50 mcg PO DAILY 08/05/14 06/12/19 Montelukast [Singulair] 10 mg PO HS 08/05/14 06/12/19 Omeprazole [PriLOSEC] 40 mg PO DAILY 08/05/14 06/12/19 Pravastatin Sodium [Pravachol] 40 mg PO HS 08/05/14 06/12/19 Tamsulosin [Flomax] 0.4 mg PO DAILY 08/05/14 06/12/19 Folic Acid 1 mg PO DAILY 02/12/18 06/12/19 Fluticasone/Salmeterol [Advair 1 puff INHALATION RT-BID 12/26/18 06/12/19 250-50 Diskus] Fluticasone/Salmeterol [Advair Hfa 2 puff INHALATION RT-DAILY PRN 06/12/19 06/12/19 230-21 Mcg Inhaler] amLODIPine [Norvasc] 5 mg PO DAILY 06/12/19 06/12/19 Allergies Allergy/AdvReac Type Severity Reaction Status Date / Time No Known Allergies Allergy Verified 11/18/19 14:42 Review of Systems ROS Statement: Those systems with pertinent positive or pertinent negative responses have been documented in the HPI. ROS Other: All systems not noted in ROS Statement are negative. 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, 07/2018 SOB with exertion/cat scan showed multiple opacities L lower lung-had bronch/BAL and is currently being treated with chemotherapy again with last dose 2 weeks ago, diverticular disease, SBO with resection/colostomy/reversal of colostomy, prostate cancer with radiation tx, skin cancer removed from face, hypothyroid, occasional low back pain, pt and spouse denied [facility] admission dated 12/26/18 as including diagnosis of DC/CHF History of Any Multi-Drug Resistant Organisms: None Reported Past Surgical History: Bowel Resection, Heart Catheterization, Heart Catheterization With Stent, Orthopedic Surgery, Tonsillectomy Additional Past Surgical History / Comment(s): 01/07/19 bronchoscopy with BAL, past bronchoscopies/bx, PCI with stent 2006, bilateral reconstructive ear brennon greg and gland removed under jaw, bowel resection d/t rupture with colostomy later reversed, L cataract removal, demetra fundoloplasty, bilateral total shoulders/knees, L knee arthroscopy x 2, EGD, colonoscopy, prostate bx, bilateral exciscion gynecomastia, skin cancer removals. Past Anesthesia/Blood Transfusion Reactions: No Reported Reaction, Motion Sickness Date of Last Stent Placement:: 2006 Past Psychological History: No Psychological Hx Reported Smoking Status: Former smoker Past Alcohol Use History: Occasional Past Drug Use History: None Reported - Past Family History Mother Family Medical History: Cancer Additional Family Medical History / Comment(s): MULTIPLE MEYLOMA Father Family Medical History: Cancer Additional Family Medical History / Comment(s): LUNG CANCER Sister(s) Family Medical History: Cancer Additional Family Medical History / Comment(s): sister had rectal cancer. Son(s) Family Medical History: Cancer Additional Family Medical History / Comment(s): Son has hodgkins lymphoma General Exam Limitations: no limitations General appearance: alert, in no apparent distress Head exam: Present: atraumatic, normocephalic Eye exam: Present: other (Ptosis left thigh, pupil is 3 mm and sluggish). Absent: normal appearance, PERRL ENT exam: Present: normal exam Neck exam: Present: normal inspection. Absent: tenderness, meningismus Respiratory exam: Present: rales. Absent: respiratory distress, wheezes Cardiovascular Exam: Present: tachycardia, irregular rhythm GI/Abdominal exam: Present: soft. Absent: distended, tenderness, guarding Extremities exam: Present: normal inspection, normal capillary refill. Absent: pedal edema, calf tenderness Neurological exam: Present: alert, oriented X3, CN II-XII intact. Absent: motor sensory deficit Psychiatric exam: Present: normal affect, normal mood Course Vital Signs 11/18/19 11/18/19 11/18/19 14:42 14:55 14:58 Temperature 97.3 F L Pulse Rate 65 125 H Respiratory 18 22 18 Rate Blood Pressure 117/77 71/46 O2 Sat by Pulse 97 97 98 Oximetry 11/18/19 11/18/19 11/18/19 15:00 15:10 15:20 Temperature Pulse Rate 130 H 115 H Respiratory 22 18 Rate Blood Pressure 71/46 96/73 120/90 O2 Sat by Pulse 99 97 Oximetry 11/18/19 11/18/19 11/18/19 15:30 15:40 16:00 Temperature Pulse Rate 117 H 137 H 111 H Respiratory 18 18 Rate Blood Pressure 120/90 103/84 O2 Sat by Pulse 99 98 98 Oximetry - Reevaluation(s) Reevaluation #1: 11/18/19 16:16 Patient denying melena or rectal bleeding. EKG Findings - EKG Comments: EKG Findings:: EKG: Atrial fibrillation with RVR, rate of 141, QRS duration 92, QTC 502, no ST segment elevation. Medical Decision Making - Medical Decision Making 79-year-old male presents and new-onset atrial fibrillation with RVR. Workup in the emergency department reveals x-ray showing mild pulmonary edema worse on the left. Also, 6.0 which is normal, hemoglobin is 12 which is improved for this patient. Patient has mild elevation in serum creatinine at 1.4 from a baseline of 1.2. Troponin is negative. He is started on Cardizem with significant improvement and rate, blood pressure is stable. He is resting comfortably while in the emergency department. He will be admitted for telemetry, evaluation by cardiology. Case is discussed with admitting physician. - Lab Data Result diagrams: 11/18/19 15:06 11/18/19 15:06 Lab Results 11/18/19 11/18/19 11/18/19 Range/Units 15:06 15:06 15:06 WBC 6.0 (3.8-10.6) k/uL RBC 3.82 L (4.30-5.90) m/uL Hgb 12.0 L (13.0-17.5) gm/dL Hct 36.2 L (39.0-53.0) % MCV 94.6 (80.0-100.0) fL MCH 31.5 (25.0-35.0) pg MCHC 33.3 (31.0-37.0) g/dL RDW 14.9 (11.5-15.5) % Plt Count 176 (150-450) k/uL Neutrophils % 81 % Lymphocytes % 13 % Monocytes % 2 % Eosinophils % 3 % Basophils % 0 % Neutrophils # 4.9 (1.3-7.7) k/uL Lymphocytes # 0.8 L (1.0-4.8) k/uL Monocytes # 0.1 (0-1.0) k/uL Eosinophils # 0.2 (0-0.7) k/uL Basophils # 0.0 (0-0.2) k/uL PT 9.5 (9.0-12.0) sec INR 0.9 (<1.2) APTT 23.5 (22.0-30.0) sec Sodium 134 L (137-145) mmol/L Potassium 4.3 (3.5-5.1) mmol/L Chloride 103 (98-107) mmol/L Carbon Dioxide 24 (22-30) mmol/L Anion Gap 7 mmol/L BUN 27 H (9-20) mg/dL Creatinine 1.40 H (0.66-1.25) mg/dL Est GFR (CKD-EPI)AfAm 54 (>60 ml/min/1.73 sqM) Est GFR (CKD-EPI)NonAf 47 (>60 ml/min/1.73 sqM) Glucose 124 H (74-99) mg/dL Calcium 9.2 (8.4-10.2) mg/dL Magnesium 1.6 (1.6-2.3) mg/dL Total Bilirubin 0.4 (0.2-1.3) mg/dL AST 38 (17-59) U/L ALT 32 (4-49) U/L Alkaline Phosphatase 109 (38-126) U/L Troponin I (0.000-0.034) ng/mL Total Protein 6.7 (6.3-8.2) g/dL Albumin 3.7 (3.5-5.0) g/dL 11/18/19 Range/Units 15:06 WBC (3.8-10.6) k/uL RBC (4.30-5.90) m/uL Hgb (13.0-17.5) gm/dL Hct (39.0-53.0) % MCV (80.0-100.0) fL MCH (25.0-35.0) pg MCHC (31.0-37.0) g/dL RDW (11.5-15.5) % Plt Count (150-450) k/uL Neutrophils % % Lymphocytes % % Monocytes % % Eosinophils % % Basophils % % Neutrophils # (1.3-7.7) k/uL Lymphocytes # (1.0-4.8) k/uL Monocytes # (0-1.0) k/uL Eosinophils # (0-0.7) k/uL Basophils # (0-0.2) k/uL PT (9.0-12.0) sec INR (<1.2) APTT (22.0-30.0) sec Sodium (137-145) mmol/L Potassium (3.5-5.1) mmol/L Chloride (98-107) mmol/L Carbon Dioxide (22-30) mmol/L Anion Gap mmol/L BUN (9-20) mg/dL Creatinine (0.66-1.25) mg/dL Est GFR (CKD-EPI)AfAm (>60 ml/min/1.73 sqM) Est GFR (CKD-EPI)NonAf (>60 ml/min/1.73 sqM) Glucose (74-99) mg/dL Calcium (8.4-10.2) mg/dL Magnesium (1.6-2.3) mg/dL Total Bilirubin (0.2-1.3) mg/dL AST (17-59) U/L ALT (4-49) U/L Alkaline Phosphatase (38-126) U/L Troponin I 0.034 (0.000-0.034) ng/mL Total Protein (6.3-8.2) g/dL Albumin (3.5-5.0) g/dL Critical Care Time Critical Care Time: Yes Total Critical Care Time: 35 Disposition Clinical Impression: Non-small cell lung cancer (NSCLC), Renal insufficiency, Atrial fibrillation with RVR Disposition: ADMITTED IP TO THIS [facility] Condition: Stable Is patient prescribed a controlled substance at d/c from ED?: No Referrals: Kehinde Rutherford MD [Primary Care Provider] - 1-2 days Decision to Admit Reason: Admit from EC Decision Date: 11/18/19 Decision Time: 16:17
[2019-11-18] MEDS ORDERED: ACETAMINOPHEN TAB 325 MG TAB PO PRN (16:18)
[2019-11-18] MEDS ORDERED: NALOXONE 0.4 MG/ML 1 ML VIAL IV PRN (16:18)
[2019-11-18] MEDS ORDERED: HEPARIN SODIUM,PORCINE 5,000 UNIT/ML 1 ML VIAL IV ONE (16:20)
[2019-11-18] MEDS ORDERED: HEPARIN SODIUM,PORCINE 5,000 UNIT/ML 1 ML VIAL IV PRN (16:20)
[2019-11-18] MEDS: HEPARIN SOD,PORK IN 0.45% NACL 25,000 UNIT in 0.45% NACL 1 250ML.BAG IV SCH (16:31)
[2019-11-18 18:56] LABS: Appearance,Urine Clear (Clear); Bilirubin,Urine Negative (Negative); Blood,Urine Negative (Negative); Color,Urine Yellow; Glucose,Urine (UA) Negative (Negative); Ketones,Urine Negative (Negative); Leukocyte Esterase,Urine Negative (Negative); Nitrite,Urine Negative (Negative); Protein,Urine Trace (Negative); Specific Gravity,Urine 1.015 (1.001-1.035)
[2019-11-18] MEDS: FOLIC ACID 1 MG TAB PO SCH (20:54)
[2019-11-19 04:50] LABS: Calcium 9.1 mg/dL (8.4-10.2); Potassium 4.3 mmol/L (3.5-5.1)
[2019-11-19 05:34] LABS: Basophils % (A) 0 %; Eosinophils # (A) 0.1 k/uL (0-0.7); Eosinophils % (A) 3 %; HCT 32.1 % (39.0-53.0); HGB 10.9 gm/dL (13.0-17.5); Lymphocytes # (A) 0.8 k/uL (1.0-4.8); Lymphocytes % (A) 18 %; MCH 31.8 pg (25.0-35.0); MCHC 33.9 g/dL (31.0-37.0); MCV 93.9 fL (80.0-100.0); Mean Platelet Volume 9.2; Monocytes # (A) 0.1 k/uL (0-1.0); Monocytes % (A) 2 %; Neutrophils # (A) 3.2 k/uL (1.3-7.7); Neutrophils % (A) 73 %; Platelet Count 156 k/uL (150-450); RBC 3.42 m/uL (4.30-5.90); WBC 4.3 k/uL (3.8-10.6)
[2019-11-19] MEDS: FOLIC ACID 1 MG TAB PO SCH (09:22)
--- NOTE | 2019-11-19 09:31 | ECHOF ---
Referral Reason:chf MEASUREMENTS -------- HEIGHT: 182.9 cm WEIGHT: 98.4 kg BP: 152/73 IVSd: 1.3 cm (0.6 - 1.1) LVIDd: 5.1 cm (3.9 - 5.3) LVPWd: 1.5 cm (0.6 - 1.1) IVSs: 1.2 cm LVIDs: 3.8 cm LVPWs: 1.7 cm LA Diam: 5.5 cm (2.7 - 3.8) LAESV Index (A-L): 44.37 ml/m MV E Carl: 0.35 m/s MV DecT: 376 ms MV A Carl: 0.81 m/s MV E/A Ratio: 0.43 AV maxP.15 mmHg AV meanP.67 mmHg FINDINGS -------- Sinus rhythm. This was a techncally difficult study with suboptimal views, , Lumason utilized for enhancement of im ages. The left ventricular size is normal. There is mild concentric left ventricular hypertrophy. Overa ll left ventricular systolic function is mildly impaired with, an EF between 45 - 50 %. The right ventricle is normal in size. The left atrium is moderately dilated. LA is moderately dilated 34-39 ml/m2 The right atrial size is normal. 5.0mg OF Lumason UTLIZED: 2 OR MORE WALL SEGMENTS NOT VISUALIZED. The aortic valve was not well visualized. There is [id number] aortic stenosis present. Pe ak/mean gradient across the Aortic Valve is 56.15mmHg / 35.67mmHg. Mild mitral annular calcification present. Mild mitral regurgitation is present. Mild tricuspid regurgitation present. Right ventricular systolic pressure is normal at < 35 mmHg. There is no evidence of pulmonary hypertension. There is no pulmonic regurgitation present. The aortic root size is normal. There is no pericardial effusion. CONCLUSIONS -------- 1. Sinus rhythm. 2. This was a techncally difficult study with suboptimal views, , Lumason utilized for enhancement of images. 3. The left ventricular size is normal. 4. There is mild concentric left ventricular hypertrophy. 5. Overall left ventricular systolic function is mildly impaired with, an EF between 45 - 50 %. 6. The right ventricle is normal in size. 7. The left atrium is moderately dilated. 8. LA is moderately dilated 34-39 ml/m2 9. The right atrial size is normal. 10. 5.0mg OF Lumason UTLIZED: 2 OR MORE WALL SEGMENTS NOT VISUALIZED. 11. The aortic valve was not well visualized. 12. There is onujwxoc-gw-woqjzz aortic stenosis present. 13. Peak/mean gradient across the Aortic Valve is 56.15mmHg / 35.67mmHg. 14. Mild mitral annular calcification present. 15. Mild mitral regurgitation is present. 16. Mild tricuspid regurgitation present. 17. Right ventricular systolic pressure is normal at < 35 mmHg. 18. There is no evidence of pulmonary hypertension. 19. There is no pulmonic regurgitation present. 20. The aortic root size is normal. 21. There is no pericardial effusion. GROOVER RUNNER: Jenifer Ferrell RDCS
--- NOTE | 2019-11-19 10:37 | P.CONS ---
History of Present Illness - Reason for Consult Consult date: 11/18/19 Lung Cancer Requesting physician: Narciso Casanova - Chief Complaint Neurological symptoms - History of Present Illness Mr. Lu is a very pleasant male patient well known to us when he originally presented with progressive exertional dyspnea for a few months had a chest x-ray followed by CAT scan in September 2015 this revealed worsening of the left pleural effusion compared to prior scans which was originally found in 2013. On his scan 2015 there was also a right upper lobe nodule that was slightly increased with likely associated enlarged mediastinal lymph nodes on 12/03/2015 he underwent a diagnostic thoracentesis cytology showed positive for adenocarcin neeru the lung on 12/12/2015 he had a PET scan which revealed suspicious uptake in that right upper lobe 2.2 paraspinal mass left pleural effusion otherwise negative on 12/16/2015 MRI of the brain was negative locular profile cannot be performed due to the cytology from the pleural fluid was not concentrated in the patient did not want a week for further molecular profiling or a repeat biopsy therefore we decided to initiate treatment at that time with carboplatin and Alimta and Avastin this was started on 12/30/2015 he completed 4 cycles which she tolerated well his repeat diagnostic imaging revealed stable disease possible slight progression in left pleural effusion he was initiated on maint enance Alimta and April 2016 his follow-up restaging exams in June 2016 showed no evidence of progression he continued to do well until July 2018 which his computed tomography scan of the chest revealed a mild stable left pleural effusion with some inflammatory changes in his left lower lung however he also complained at that time of worsening cough referred to Dr. Barrera our underwent a bronchoscopy on 10/23/2018 and a transbronchial biopsy was taken and the pathology revealed poorly differentiated adenocarcinoma at this time his molecular testing with next GEN sequencing was negative for any targeted mutations including but not limited to ALK and ROS unfortunately at that time PDL 1 could not be obtained. In October 2018 he was started on Opdivo (Immune Therapy) November 28 he continued to have worsening shortness of breath CAT scan of the chest revealed increasing size of right upper lobe nodule and increasing left lower lobe consolidation he was started on prednisone and symptoms improved he resumed Optivar on 12/05/2018 continued with 3 more treatments 12/26/2018 he was referred to the emergency department for sudden chills dyspnea and acute hypoxic respiratory failure the CT of the scan at that time revealed worsening bilateral lower lung infiltrate and consolidation treated with antibiotic steroids discharged on 12/31/2018 on 01/07/2019 he had a bronchoscopy biopsy which was negative he continues to recover from his emergency visit in early December he is now off prednisone and completed antibiotics as of the first week in January although his nonproductive cough shortness of breath overall fatigue and diffuse joint pain has appeared to become progressively worse. I've Divo was therefore stopped and on 01/25/2019 he began his first cycle of Carbo and Alimta. On 02/04/2019 he was admitted to [facility] with complaints of black tarry stools and a drop in his hemoglobin therefore he was referred to emergency for further workup and evaluation. Admitted with GI Bleed with known history of prior bowel surgeries including colostomy and small bowel surgery as well as hiatal hernia surgery this was done at [facility]. On 03/11/2019,repeat CT scan of chest/abdomen/pelvis revealed relatively stable disease. He completed 4 cycles of carboplatin/alimta on 03/29/[address] scan on 06/05/2019 revealed improvement in his disease. Repeat CT scan of chest on 09/04/2019 revealed stable disease. He continues with alimta every 3 weeks He feels tired,has his chronic exertional dyspnea,sinus drainage and fatigue improved significantly with prednisone,currently on 5 mg/day,appetite is fine,however,he felt more dizzy and had double vision over the last week. An MRI was ordered with these complaints and revealed a punctate 4mm acute lacunar infarct of the right posterior frontal lobe. No metastatic disease was identified. 11/18/19-1128 am-Seeing pt via telehealth/[facility] for acute visit. After his last chemo, the next morning, felt like sinus pressure/ache around eye, painful, then the pain went away but, the eye wont open on its own now, no vision loss, blurred vision, black spots, denies dysphagia, odynophagia, he has yeast inf ection in mouth, takes diflucan, no F, C, N, chest pain, SOB, indigestion a few nights ago, no acute changes in bowel or bladder, no incontinence, no numbness or tingling in hands/feet, strength in extremities is equal, he is having dizziness, he is unsteady, per which is new. completed 1200 pm. He did have a repeat MRI of the brain 11/17 which did not show evidence of metastatic disease, although revealing undulation of the left optic nerve and slight prominence of optic nerve perineural fluid which can be seen with increased intracranal pressure. 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, 07/2018 SOB with exertion/cat scan showed multiple opacities L lower lung-had bronch/BAL and is currently being treated with chemotherapy again with last dose 2 weeks ago, diverticular disease, SBO with resection/colostomy/reversal of colostomy, prostate cancer with radiation tx, skin cancer removed from face, hypothyroid, occasional low back pain, pt and spouse denied [facility] admission dated 12/26/18 as including diagnosis of AR/CHF History of Any Multi-Drug Resistant Organisms: None Reported Past Surgical History: Bowel Resection, Heart Catheterization, Heart Catheterization With Stent, Orthopedic Surgery, Tonsillectomy Additional Past Surgical History / Comment(s): 01/07/19 bronchoscopy with BAL, past bronchoscopies/bx, PCI with stent 2006, bilateral reconstructive ear surgery and gland removed under jaw, bowel resection d/t rupture with colostomy later reversed, L cataract removal, demetra fundoloplasty, bilateral total shoulders/knees, L knee arthroscopy x 2, EGD, colonoscopy, prostate bx, bilateral exciscion gynecomastia, skin cancer removals. Past Anesthesia/Blood Transfusion Reactions: No Reported Reaction, Motion Sickness Date of Last Stent Placement:: 2006 Past Psychological History: No Psychological Hx Reported Additional Psychological History / Comment(s): Pt resides with his spouse. He has a nebulizer. He drives. Smoking Status: Former smoker Past Alcohol Use History: Occasional Additional Past Alcohol Use History / Comment(s): SMOKED OCCASIONAL CIGAR. STARTED SMOKING AT AGE 14 ,SMOKED TILL 1982 Past Drug Use History: None Reported - Past Family History Mother Family Medical History: Cancer Additional Family Medical History / Comment(s): MULTIPLE MEYLOMA Father Family Medical History: Cancer Additional Family Medical History / Comment(s): LUNG CANCER Sister(s) Family Medical History: Cancer Additional Family Medical History / Comment(s): sister had rectal cancer. Son(s) Family Medical History: Cancer Additional Family Medical History / Comment(s): Son has hodgkins lymphoma Medications and Allergies Home Medications Medication Instructions Recorded Confirmed Type FLUoxetine HCL [PROzac] 20 mg PO HS 08/05/14 11/18/19 History Levothyroxine Sodium [Synthroid] 50 mcg PO DAILY 08/05/14 11/18/19 History Montelukast [Singulair] 10 mg PO HS 08/05/14 11/18/19 History Omeprazole [PriLOSEC] 40 mg PO HS 08/05/14 11/18/19 History Pravastatin Sodium [Pravachol] 40 mg PO HS 08/05/14 11/18/19 History Tamsulosin [Flomax] 0.4 mg PO DAILY 08/05/14 11/18/19 History Folic Acid 1 mg PO HS 02/12/18 11/18/19 History amLODIPine [Norvasc] 5 mg PO DAILY 06/12/19 11/18/19 History Fluticasone Nasal [place] [Flonase 1 spray EA NOSTRIL DAILY 11/18/19 11/18/19 History Nasal [place]] Fluticasone Propion/Salmeterol 1 puff PO RT-BID 11/18/19 11/18/19 History [Wixela 250-50 Inhub] Fluticasone/Umeclidin/Vilanter 1 puff INHALATION RT-DAILY 11/18/19 11/18/19 History [Trelegy Ellipta 100-62.5-25] Lisinopril [Zestril] 2.5 mg PO DAILY 11/18/19 11/18/19 History predniSONE 5 mg PO DAILY 11/18/19 11/18/19 History Allergies Allergy/AdvReac Type Severity Reaction Status Date / Time No Known Allergies Allergy Verified 11/18/19 17:08 Physical Exam Vitals: Vital Signs Temp Pulse Pulse Resp BP BP Pulse Ox 11/18/19 18:15 98.3 F 99 18 100/67 98 11/18/19 16:41 97.3 F L 129 H 18 93/68 97 11/18/19 16:35 129 H 18 93/68 97 11/18/19 16:00 111 H 18 103/84 98 11/18/19 15:40 137 H 98 11/18/19 15:30 117 H 18 120/90 99 11/18/19 15:20 115 H 18 120/90 97 11/18/19 15:10 22 96/73 11/18/19 15:00 130 H 71/46 99 11/18/19 14:58 125 H 18 71/46 98 11/18/19 14:55 22 97 11/18/19 14:42 97.3 F L 65 18 117/77 97 Intake and Output 11/18/19 11/18/19 11/18/19 06:59 14:59 22:59 Intake Total 15 240 Output Total 400 Balance -385 240 Intake: Intake, IV Titration 15 Amount Diltiazem 125 mg In 5 Sodium Chloride 0.9% 100 ml @ 5 MG/HR 5 mls/hr IV .Q24H JUSTEN Rx#:[id number] Heparin Sod,Pork in 0.45% 10 NaCl 25,000 unit In 0.45 % NaCl 1 250ml.bag @ 10. 254 UNITS/KG/HR 10 mls/hr IV .Q24H JUSTEN Rx#: [id number] Oral 240 Output: Urine 400 Other: Weight 97.522 kg 97.522 kg General: Awake and Alert, No acute Distress HEENT: Normal Cephalic, Atraumatic. Non-icteric Sclera Left eye movement limited when looking up Mouth: No Thrush, Dry Mucus Membranes Neck: supple, trachea midline. Lymph Nodes: No cervical, supraclavicular, or Axillary Lymphadenopathy on palpation Heart: irregular, irregular Lungs: Increased respiratory Effort Noted, Bilateral bibasilar diminishedl Abdomen: Soft, Non-distended, Non-tender Extremities: Strength is equal bilateral upper and lower, No edema noted Skin: No rashes or lesions noted Neurological: No sensory or motor deficits. Psychiatric: Cooperative, appropriate mood & affect, normal judgment Results CBC & Chem 7: 11/19/19 04:16 11/19/19 04:16 Labs: Abnormal Lab Results - Last 24 Hours (Table) 11/18/19 11/18/19 11/18/19 Range/Units 15:06 15:06 18:45 RBC 3.82 L (4.30-5.90) m/uL Hgb 12.0 L (13.0-17.5) gm/dL Hct 36.2 L (39.0-53.0) % Lymphocytes # 0.8 L (1.0-4.8) k/uL Sodium 134 L (137-145) mmol/L BUN 27 H (9-20) mg/dL Creatinine 1.40 H (0.66-1.25) mg/dL Glucose 124 H (74-99) mg/dL Urine Protein Trace H (Negative) MRI - head: report reviewed Assessment and Plan Plan: Assessment and Recommendations: Non-Small Cell Lung Cancer: - Details and History reviewed in HPI - Recently Treated with Immune Therapy (opdivo), Stopped 12/19/18 - Status Post treatment with carboplatin and Almta x4 - currently on maintenace almta Neurological Symptoms: - Isolated third nerve palsy, MRA and neurology consult per primary team - Recent MRI 09/2019 concern for acute infarct - MRI today reviewed without evidence of metastatic disease - Opthomology to assess for potential papiledema - COntinue Folic acid as patient is on Almta maintenance Acute Renal Insufficiency: - Likely prerenal - Monitor BMP - Gentle Hydration Discussed case with primary team, planning MRA and probable plan for discharge in am Thank you for allowing us to participate in the care of this patient we will follow along with you Paige RIVAS
[2019-11-19] MEDS: predniSONE 5 MG TAB PO SCH (10:38)
[2019-11-19] MEDS: LEVOTHYROXINE 50 MCG TAB PO SCH (10:38)
[2019-11-19] MEDS: HEPARIN SOD,PORK IN 0.45% NACL 25,000 UNIT in 0.45% NACL 1 250ML.BAG IV SCH (10:38)
[2019-11-19] MEDS: METOPROLOL TARTRATE 50 MG TAB PO SCH ×2 (10:38→20:58)
[2019-11-19] MEDS: TAMSULOSIN 0.4 MG CAP.ER.24H PO SCH (10:40)
--- NOTE | 2019-11-19 10:55 | P.HPIM ---
History of Present Illness 79-year-old male was having lightheadedness and generalized weakness along with mild chest discomfort in any of found to have been atrial fibrillation with rapid ventricular rate. Patient is present is sinus rhythm rate controlled. Patient was also having double vision without any problems and acute effusion. Patient is unable to open his left eye. Doesn't have any other facial weakness doesn't have any other weakness or tingling and numbness anywhere in the body. Patient appears to have isolated third nerve palsy patient had an MRI of the orbits and the MRI of the brain which did not show any third nerve lesion. Patient appears to have some papilledema. Patient does have weakness of the medial rectus muscle and cannot move his eye superiorly either probably superior oblique palsy. Patient in any of 40 with 50% Review of Systems REVIEW OF SYSTEMS: CONSTITUTIONAL: No fever, no malaise, no fatigue. HEENT: No recent visual problems or hearing problems. Denied any sore throat. CARDIOVASCULAR: No chest pain, orthopnea, PND, no palpitations, no syncope. PULMONARY: No shortness of breath, no cough, no hemoptysis. GASTROINTESTINAL: No diarrhea, no nausea, no vomiting, no abdominal pain. NEUROLOGICAL: No headaches, no numbness. We will lesion as mentioned above HEMATOLOGICAL: Denies any bleeding or petechiae. GENITOURINARY: Denies any burning micturition, frequency, or urgency. MUSCULOSKELETAL/RHEUMATOLOGICAL: Denies any joint pain, swelling, or any muscle pain. ENDOCRINE: Denies any polyuria or polydipsia. The rest of the 14-point review of systems is negative. 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, 07/2018 SOB with exertion/cat scan showed multiple opacities L lower lung-had bronch/BAL and is currently being treated with chemotherapy again with last dose 2 weeks ago, diverticular d isease, SBO with resection/colostomy/reversal of colostomy, prostate cancer with radiation tx, skin cancer removed from face, hypothyroid, occasional low back pain, pt and spouse denied [facility] admission dated 12/26/18 as including diagnosis of UT/CHF History of Any Multi-Drug Resistant Organisms: None Reported Past Surgical History: Bowel Resection, Heart Catheterization, Heart Catheterization With Stent, Orthopedic Surgery, Tonsillectomy Additional Past Surgical History / Comment(s): 01/07/19 bronchoscopy with BAL, past bronchoscopies/bx, PCI with stent 2006, bilateral reconstructive ear surgery and gland removed under jaw, bowel resection d/t rupture with colostomy later reversed, L cataract removal, demetra fundoloplasty, bilateral total shoulders/knees, L knee arthroscopy x 2, EGD, colonoscopy, prostate bx, bilatera l exciscion gynecomastia, skin cancer removals. Past Anesthesia/Blood Transfusion Reactions: No Reported Reaction, Motion Sickness Date of Last Stent Placement:: 2006 Past Psychological History: No Psychological Hx Reported Additional Psychological History / Comment(s): Pt resides with his spouse. He has a nebulizer. He drives. Smoking Status: Former smoker Past Alcohol Use History: Occasional Additional Past Alcohol Use History / Comment(s): SMOKED OCCASIONAL CIGAR. STARTED SMOKING AT AGE 14 ,SMOKED TILL 1982 Past Drug Use History: None Reported - Past Family History Mother Family Medical History: Cancer Additional Family Medical History / Comment(s): MULTIPLE MEYLOMA Father Family Medical History: Cancer Additional Family Medical History / Comment(s): LUNG CANCER Sister(s) Family Medical History: Cancer Additional Family Medical History / Comment(s): sister had rectal cancer. Son(s) Family Medical History: Cancer Additional Family Medical History / Comment(s): Son has hodgkins lymphoma Medications and Allergies Home Medications Medication Instructions Recorded Confirmed Type FLUoxetine HCL [PROzac] 20 mg PO HS 08/05/14 11/18/19 History Levothyroxine Sodium [Synthroid] 50 mcg PO DAILY 08/05/14 11/18/19 History Montelukast [Singulair] 10 mg PO HS 08/05/14 11/18/19 History Omeprazole [PriLOSEC] 40 mg PO HS 08/05/14 11/18/19 History Pravastatin Sodium [Pravachol] 40 mg PO HS 08/05/14 11/18/19 History Tamsulosin [Flomax] 0.4 mg PO DAILY 08/05/14 11/18/19 History Folic Acid 1 mg PO HS 02/12/18 11/18/19 History amLODIPine [Norvasc] 5 mg PO DAILY 06/12/19 11/18/19 History Fluticasone Nasal [place] [Flonase 1 spray EA NOSTRIL DAILY 11/18/19 11/18/19 History Nasal [place]] Fluticasone Propion/Salmeterol 1 puff PO RT-BID 11/18/19 11/18/19 History [Wixela 250-50 Inhub] Fluticasone/Umeclidin/Vilanter 1 puff INHALATION RT-DAILY 11/18/19 11/18/19 History [Trelegy Ellipta 100-62.5-25] Lisinopril [Zestril] 2.5 mg PO DAILY 11/18/19 11/18/19 History predniSONE 5 mg PO DAILY 11/18/19 11/18/19 History Allergies Allergy/AdvReac Type Severity Reaction Status Date / Time No Known Allergies Allergy Verified 11/18/19 17:08 Physical Exam Vitals: Vital Signs Temp Pulse Pulse Resp BP BP Pulse Ox 11/19/19 04:00 97.8 F 70 18 152/73 98 11/19/19 00:00 97.6 F 77 18 110/65 97 11/18/19 20:00 98.9 F 84 18 126/72 97 11/18/19 18:15 98.3 F 99 18 100/67 98 11/18/19 16:41 97.3 F L 129 H 18 93/68 97 11/18/19 16:35 129 H 18 93/68 97 11/18/19 16:00 111 H 18 103/84 98 11/18/19 15:40 137 H 98 11/18/19 15:30 117 H 18 120/90 99 11/18/19 15:20 115 H 18 120/90 97 11/18/19 15:10 22 96/73 11/18/19 15:00 130 H 71/46 99 11/18/19 14:58 125 H 18 71/46 98 11/18/19 14:55 22 97 11/18/19 14:42 97.3 F L 65 18 117/77 97 Intake and Output 11/18/19 11/19/19 11/19/19 22:59 06:59 14:59 Intake Total 240 69.667 378.838 Output Total 480 400 Balance 240 -410.333 -21.162 Intake: Intake, IV Titration 69.667 138.838 Amount Heparin Sod,Pork in 0.45% 69.667 138.838 NaCl 25,000 unit In 0.45 % NaCl 1 250ml.bag @ 10. 254 UNITS/KG/HR 10 mls/hr IV .Q24H JUSTEN Rx#: [id number] Oral 240 240 Output: Urine 480 400 Other: # Voids 2 Weight 97.522 kg 98.8 kg PHYSICAL EXAMINATION: GENERAL: The patient is alert and oriented x3, not in any acute distress. Well developed, well nourished. HEENT: Pupils are round and equally reacting to light. EOMI. No scleral icterus. No conjunctival pallor. Normocephalic, atraumatic. No pharyngeal erythema. No thyromegaly. CARDIOVASCULAR: S1 and S2 present. No murmurs, rubs, or gallops. PULMONARY: Chest is clear to auscultation, no wheezing or crackles. ABDOMEN: Soft, nontender, nondistended, normoactive bowel sounds. No palpable organomegaly. MUSCULOSKELETAL: No joint swelling or deformity. EXTREMITIES: No cyanosis, clubbing, or pedal edema. NEUROLOGICAL: Gross neurological examination did not reveal any focal deficits except for unable to open the left eye and the medial rectus palsy along with superior oblique palsy which is consistent with isolated third nerve palsy is no facial nerve involvement. SKIN: No rashes. Results CBC & Chem 7: 11/19/19 04:16 11/19/19 04:16 Labs: Abnormal Lab Results - Last 24 Hours (Table) 11/18/19 11/18/19 11/18/19 Range/Units 15:06 15:06 18:45 RBC 3.82 L (4.30-5.90) m/uL Hgb 12.0 L (13.0-17.5) gm/dL Hct 36.2 L (39.0-53.0) % Lymphocytes # 0.8 L (1.0-4.8) k/uL APTT (22.0-30.0) sec Sodium 134 L (137-145) mmol/L Carbon Dioxide (22-30) mmol/L BUN 27 H (9-20) mg/dL Creatinine 1.40 H (0.66-1.25) mg/dL Glucose 124 H (74-99) mg/dL Urine Protein Trace H (Negative) 11/18/19 11/19/19 11/19/19 Range/Units 22:28 04:16 04:16 RBC 3.42 L (4.30-5.90) m/uL Hgb 10.9 L (13.0-17.5) gm/dL Hct 32.1 L (39.0-53.0) % Lymphocytes # 0.8 L (1.0-4.8) k/uL APTT 35.0 H (22.0-30.0) sec Sodium 134 L (137-145) mmol/L Carbon Dioxide 20 L (22-30) mmol/L BUN 24 H (9-20) mg/dL Creatinine 1.31 H (0.66-1.25) mg/dL Glucose (74-99) mg/dL Urine Protein (Negative) 11/19/19 Range/Units 04:16 RBC (4.30-5.90) m/uL Hgb (13.0-17.5) gm/dL Hct (39.0-53.0) % Lymphocytes # (1.0-4.8) k/uL APTT 32.8 H (22.0-30.0) sec Sodium (137-145) mmol/L Carbon Dioxide (22-30) mmol/L BUN (9-20) mg/dL Creatinine (0.66-1.25) mg/dL Glucose (74-99) mg/dL Urine Protein (Negative) Thrombosis Risk Factor Assmnt - Choose All That Apply Any of the Below Risk Factors Present?: Yes Each Factor Represents 1 point: Abnormal pulmonary function (COPD) Each Risk Factor Represents 2 Points: Malignancy Each Risk Factor Represents 3 Points: Age 75 years or older Thrombosis Risk Factor Assessment Total Risk Factor Score: 6 Thrombosis Risk Factor Assessment Level: High Risk Assessment and Plan Plan: -Atrial fibrillation presently rate controlled presently sinus rhythm heparin will risk and your patient will be started on metoprolol -Isolated third nerve palsy patient will need an MRI most probably but will leave this decision to neurology neurology was consulted continue with heparin for now -Congestive heart failure mildly depressed ejection fraction unsure whether it's acute or chronic chronic systolic dysfunction although patient is not in acute heart failure exacerbation this heart failure can be acute from atrial fibrillation -Hyponatremia probably secondary to ascites from a non-small cell lung cancer patient need to be on fluid restricted diet -Non-small cell lung cancer on chemotherapy -Renal failure appears to be mostly acute renal failure probably prerenal azotemia . Will repeat BMP tomorrow no further intervention at this time. -COPD without any acute exacerbation -[place] artery disease -Gastroesophageal reflux disease -Hyperlipidemia -Hypertension and-hypothyroidism -Sleep apnea For above-mentioned chronic medical problems patient will be resumed on appropriate home medications
--- NOTE | 2019-11-19 10:57 | CONS ---
CONSULTATION CHIEF COMPLAINT: Atrial fibrillation with rapid ventricular rate. Yunier is an 79-year-old gentleman with history of hypertension, coronary artery disease, status post prior angioplasty, hypothyroidism, depression, and non- small cell lung cancer for which he is currently on chemotherapy, presented to the hospital complaining of dizziness and not feeling well. The patient initially developed swelling around the left eye and had a droopy eyelid. He was sent to the hospital for an MRI. Following the MRI, he was not feeling well, sent to the emergency room from where he is admitted to the hospital. An EKG done in the ER showed atrial fibrillation with rapid ventricular rate with a heart rate of 140 beats per minute. The patient states that he has had dizziness for a long time. An echo done on this admission revealed an ejection fraction of 45% to 50%. The patient has known aortic stenosis that is currently being monitored. He has moderate to severe aortic stenosis on an echocardiogram. The patient had a cardiac catheterization in December of 2018. The patient is currently receiving intravenous heparin and intravenous Cardizem and is also being worked up for possible CVA. From my standpoint, I want to control his heart rate and start him on an anticoagulant. If covered, I am going to put him on Eliquis 2.5 b.i.d., but I am going to wait for the neurologist to give an opinion as to whether he is a candidate for long-term anticoagulation or not and as to what is the reason as to why he had the possible paralysis of the left eye muscles. PAST MEDICAL HISTORY: Significant for CAD, status post angioplasty, hypothyroidism, carcinoma, dyslipidemia, hypertension. MEDICATIONS: Medications include Norvasc 5 q. daily, Flomax, Pravachol 40 q. daily, Prilosec, Singulair, Zestril Synthroid, folic acid, and Prozac. ALLERGIES: There are no known drug allergies. FAMILY HISTORY: Negative for premature coronary artery disease. SOCIAL HISTORY: Negative for smoking, EtOH abuse, or drug abuse. REVIEW OF SYSTEMS: HEENT is unremarkable. CARDIAC: As described above. RESPIRATORY: As described above. GI: Negative. GENITOURINARY: Negative. ALLERGY/IMMUNOLOGY: Negative. SKIN: Negative. MUSCULOSKELETAL: Significant for arthritis. PSYCHOSOCIAL: Negative. DERM: Negative. CONSTITUTIONAL: Negative. ONCOLOGICAL: Significant for cancer. PHYSICAL EXAMINATION: On exam, patient is comfortable at rest. Heart rate is 70 beats per minute. Blood pressure is 150/70. Respiratory rate is 18. Afebrile. There is no jugular venous distention. Carotid upstroke is diminished. There is no bruit. Chest exam reveals good air entry bilaterally. Heart exam reveals first and second heart sounds. No gallop. Irregular rhythm and ESM in aortic area Abdomen is soft. Exam of extremities did not reveal any edema. Peripheral pulses are felt. LABS: Labs show a hemoglobin of 10.9, platelet count is 156, potassium is 4.3, creatinine is 1.3. ASSESSMENT: 1. Persistent atrial fibrillation with poorly controlled ventricular rate. 2. 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 3. Non-small cell lung cancer. 4. Coronary artery disease, status post angioplasty. 5. Moderate aortic stenosis PLAN: I will start the patient on Eliquis 2.5 b.i.d. when okay with the neurologist. MMBIRDIEL / GIANN: [id number] / MTDD
--- NOTE | 2019-11-19 13:35 | P.CNNES ---
History of Present Illness Consult date: 11/19/19 Requesting physician: Moody Ha Reason for Consult: Possible third nerve palsy History of Present Illness: Patient is a 79-year-old male, with history of metastatic lung cancer, however doing well came to the hospital for acute onset of left third nerve palsy. Patient states that his symptoms started on Monday night, 11/13/2019, with pain in the left orbital region. It was an aching pain, that lasted for couple hours and then went away. Next morning on , when he woke up, he had complete left ptosis. Patient denied any headache, and the left orbital aching had resolved. No other focal symptoms whatsoever. Patient underwent an MRI of the brain with and without contrast with orbits, yesterday, which revealed no acute infarct, midline shift or mass effect. No abnormal intracranial enhanc ement. No evidence of intracranial metastasis. Undulation of the left optic nerve and slight prominence of optic nerve very fluid, which can be seen in increased intracranial pressure. No other MR evidence of intracranial pressure. Correlate with ophthalmologic exam couldn't showed no papilledema. Left ocular lens appear surgically absent. Trace amount of fluid in the left mastoid air cells that may clinically correlate with mastoiditis. Mild pansinusitis. Chest x-ray showed mild pulmonary is clear congestion exaggerated on the left, given slight rotation. This appears similar to the prior. Mildly enlarged cardiac mediastinal cyst". A sitter congestive heart failure. EKG showed atrial fibrillation with rapid ventricular rate. Nonspecific ST abnormality. 2-D echo showed sinus rhythm. Mild concentric LVH. EF is 45-50%. Left atrium is moderately dilated. There is moderate to severe aortic stenosis. Patient's last hemoglobin A1c 5.9 on 11/26/2015. Lipids are normal. Patient states that about a month ago he had an episode of double vision, that lasted for about 2 hours and then went away. Patient has a diagnosis of lung cancer since 12/12/2015. Patient underwent c hemotherapy. Patient had bronchoscopy on 10/23/2018, and the biopsy revealed poorly differentiated adenocarcinoma. Patient subsequently underwent repeat 4 cycles of carboplatin/Alimta on 03/29/2019. Patient has history of smoking 2 packs per day for 40 years, quit in 1983. He drinks alcohol once in a while. Patient denies any family history of cerebral aneurysms. Review of Systems As above in detail. Otherwise completely unremarkable. 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, 07/2018 SOB with exertion/cat scan showed multiple opacities L lower lung-had bronch/BAL and is currently being treated with chemotherapy again with last dose 2 weeks ago, diverticular disease, SBO with resection/colostomy/reversal of colostomy, prostate cancer with radiation tx, skin cancer removed from face, hypothyroid, occasional low back pain, pt and spouse denied [facility] admission dated 12/26/18 as including diagnosis of SD/CHF History of Any Multi-Drug Resistant Organisms: None Reported Past Surgical History: Bowel Resection, Heart Catheterization, Heart Catheterization With Stent, Orthopedic Surgery, Tonsillectomy Additional Past Surgical History / Comment(s): 01/07/19 bronchoscopy with BAL, past bronchoscopies/bx, PCI with stent 2006, bilateral reconstructive ear surgery and gland removed under jaw, bowel resection d/t rupture with colostomy later reversed, L cataract removal, demetra fundoloplasty, bilateral total should ers/knees, L knee arthroscopy x 2, EGD, colonoscopy, prostate bx, bilateral exciscion gynecomastia, skin cancer removals. Past Anesthesia/Blood Transfusion Reactions: No Reported Reaction, Motion Sickness Date of Last Stent Placement:: 2006 Past Psychological History: No Psychological Hx Reported Additional Psychological History / Comment(s): Pt resides with his spouse. He has a nebulizer. He drives. Smoking Status: Former smoker Past Alcohol Use History: Occasional Additional Past Alcohol Use History / Comment(s): SMOKED OCCASIONAL CIGAR. STARTED SMOKING AT AGE 14 ,SMOKED TILL 1982 Past Drug Use History: None Reported - Past Family History Mother Family Medical History: Cancer Additional Family Medical History / Comment(s): MULTIPLE MEYLOMA Father Family Medical History: Cancer Additional Family Medical History / Comment(s): LUNG CANCER Sister(s) Family Medical History: Cancer Additional Family Medical History / Comment(s): sister had rectal cancer. Son(s) Family Medical History: Cancer Additional Family Medical History / Comment(s): Son has hodgkins lymphoma Medications and Allergies Home Medications Medication Instructions Recorded Confirmed Type FLUoxetine HCL [PROzac] 20 mg PO HS 08/05/14 11/18/19 History Levothyroxine Sodium [Synthroid] 50 mcg PO DAILY 08/05/14 11/18/19 History Montelukast [Singulair] 10 mg PO HS 08/05/14 11/18/19 History Omeprazole [PriLOSEC] 40 mg PO HS 08/05/14 11/18/19 History Pravastatin Sodium [Pravachol] 40 mg PO HS 08/05/14 11/18/19 History Tamsulosin [Flomax] 0.4 mg PO DAILY 08/05/14 11/18/19 History Folic Acid 1 mg PO HS 02/12/18 11/18/19 History amLODIPine [Norvasc] 5 mg PO DAILY 06/12/19 11/18/19 History Fluticasone Nasal [place] [Flonase 1 spray EA NOSTRIL DAILY 11/18/19 11/18/19 History Nasal [place]] Fluticasone Propion/Salmeterol 1 puff PO RT-BID 11/18/19 11/18/19 History [Wixela 250-50 Inhub] Fluticasone/Umeclidin/Vilanter 1 puff INHALATION RT-DAILY 11/18/19 11/18/19 History [Trelegy Ellipta 100-62.5-25] Lisinopril [Zestril] 2.5 mg PO DAILY 11/18/19 11/18/19 History predniSONE 5 mg PO DAILY 11/18/19 11/18/19 History Allergies Allergy/AdvReac Type Severity Reaction Status Date / Time No Known Allergies Allergy Verified 11/18/19 17:08 Physical Examination - Vital Signs Vital Signs: Vital Signs Temp Pulse Pulse Resp BP BP Pulse Ox 11/19/19 08:10 98.9 F 71 18 129/74 96 11/19/19 04:00 97.8 F 70 18 152/73 98 11/19/19 00:00 97.6 F 77 18 110/65 97 11/18/19 20:00 98.9 F 84 18 126/72 97 11/18/19 18:15 98.3 F 99 18 100/67 98 11/18/19 16:41 97.3 F L 129 H 18 93/68 97 11/18/19 16:35 129 H 18 93/68 97 11/18/19 16:00 111 H 18 103/84 98 11/18/19 15:40 137 H 98 11/18/19 15:30 117 H 18 120/90 99 11/18/19 15:20 115 H 18 120/90 97 11/18/19 15:10 22 96/73 11/18/19 15:00 130 H 71/46 99 11/18/19 14:58 125 H 18 71/46 98 11/18/19 14:55 22 97 11/18/19 14:42 97.3 F L 65 18 117/77 97 Intake and Output 11/18/19 11/19/19 11/19/19 22:59 06:59 14:59 Intake Total 240 69.667 378.838 Output Total 480 400 Balance 240 -410.333 -21.162 Intake: Intake, IV Titration 69.667 138.838 Amount Heparin Sod,Pork in 0.45% 69.667 138.838 NaCl 25,000 unit In 0.45 % NaCl 1 250ml.bag @ 10. 254 UNITS/KG/HR 10 mls/hr IV .Q24H JUSTEN Rx#: [id number] Oral 240 240 Output: Urine 480 400 Other: # Voids 2 Weight 97.522 kg 98.8 kg Patient is an elderly male, in no distress. Patient is alert and awake, fully oriented to time place and person. Speech and language functions are normal. Attention and concentration fund of knowledge adequate. On cranial examination patient has slightly dilated left pupil. Patient has left third nerve palsy, with almost complete ophthalmoparesis, except for intact lateral rectus. Face is symmetric and tongue protrudes the midline. Palatal elevation and sensation normal. Muscle strength testing there is no pronator drift and the strength is normal in arms and legs distally and proximally. Reflexes symmetric and plantars downgoing sensory touch is equal. No ataxia for [id number] testing. Tone and bulk of muscles normal. Gait deferred. No bruit or murmur. Peripheral pulses present. Results - Laboratory Findings CBC and BMP: 11/19/19 04:16 11/19/19 04:16 Abnormal Lab Findings: Abnormal Labs 11/18/19 11/18/19 11/18/19 15:06 15:06 18:45 RBC 3.82 L Hgb 12.0 L Hct 36.2 L Lymphocytes # 0.8 L APTT Sodium 134 L Carbon Dioxide BUN 27 H Creatinine 1.40 H Glucose 124 H Urine Protein Trace H 11/18/19 11/19/19 11/19/19 22:28 04:16 04:16 RBC 3.42 L Hgb 10.9 L Hct 32.1 L Lymphocytes # 0.8 L APTT 35.0 H Sodium 134 L Carbon Dioxide 20 L BUN 24 H Creatinine 1.31 H Glucose Urine Protein 11/19/19 11/19/19 04:16 10:57 RBC Hgb Hct Lymphocytes # APTT 32.8 H 41.3 H Sodium Carbon Dioxide BUN Creatinine Glucose Urine Protein Assessment and Plan Assessment: * Acute, isolated left third nerve palsy, unclear etiology, possibly due to small vessel disease. No evidence of other cranial nerve dysfunction. No evidence of acute stroke noted on MRI of the brain. * Metastatic lung cancer, stable. Plan: * Patient's MRI of the brain is normal, with no evidence of meningeal carcinomatosis, or an acute stroke. * Awaiting Ophthalmology consultation. * I would suggest starting aspirin 81 mg daily if no medical contraindication due to his recent history of GI bleed. * Also would suggest a course of steroids, if okay with [employer], and if no medical contraindications. * We'll check carotid Doppler to complete the workup. Addendum: Discussed with [employer]. No indication for antiplatelets, or steroids. It usually resolves spontaneously. Because there is involvement of the pupil, therefore need to rule out PCOM aneurysm. We will check MRA of the brain to rule out aneurysm, and a carotid Doppler. If above test negative, then would be clear for discharge.
--- NOTE | 2019-11-19 14:36 | US ---
EXAMINATION TYPE: US carotid duplex BILAT DATE OF EXAM: 11/19/2019 COMPARISON: NONE CLINICAL HISTORY: Right third nerve palsy, rule out CVA. EXAM MEASUREMENTS: RIGHT: Peak Systolic Velocity (PSV) cm/sec ----- Right CCA: 61.6 ----- Right ICA: 133.8 ----- Right ECA: 125.9 ICA/CCA ratio: 2.2 RIGHT: End Diastole cm/sec ----- Right CCA: 14.6 ----- Right ICA: 37.2 ----- Right ECA: 7.7 LEFT: Peak Systolic Velocity (PSV) cm/sec ----- Left CCA: 57.1 ----- Left ICA: 76.4 ----- Left ECA: 95.4 ICA/CCA ratio: 1.3 LEFT: End Diastole cm/sec ----- Left CCA: 12.0 ----- Left ICA: 23.6 ----- Left ECA: 9.7 VERTEBRALS (direction of flow): Right Vertebral: Antegrade Left Vertebral: Antegrade Rhythm: Normal Moderate atherosclerotic changes with slight velocity increase seen on right and no significant velo city increases seen on left. IMPRESSION: No hemodynamically significant stenosis appreciated at this time. Criteria for Assigning % of Stenosis / Diameter reduction (Estimation based on the indirect measurements of the internal carotid artery velocities (ICA PSV). 1. Normal (no stenosis)=ICA PSV < 125 cm/s: ratio < 2.0: ICA EDV<40 cm/s. 2. Less than 50% stenosis=ICA PSV < 125 cm/s: ratio < 2.0: ICA EDV<40 cm/s. 3. 50 to 69% stenosis=ICA PSV of 125 to 230 cm/s: ration 2.0 ? 4.0: ICA EDV 40-100 cm/s. 4. Greater than 70% stenosis to near occlusion= ICA PSV > 230 cm/s: ratio > 4.0: ICA EDV > 100 cm/s. 5. Near occlusion= ICA PSV velocities may be low or undetectable: variable ratio and ICA EDV. 6. Total occlusion=unable to detect flow.
--- NOTE | 2019-11-19 16:12 | MR ---
EXAMINATION TYPE: MR angio head wo con DATE OF EXAM: 11/19/2019 COMPARISON: MRI brain 11/18/2019 and 10/24/2019 HISTORY: 79-year-old male Right third nerve palsy, rule out aneurysm, Unable to open lt eye TECHNIQUE: High-resolution 3-D [id number] images focusing on the [place] were performed without contrast. Rotational 3-D reconstructions generated on a dedicated independent workstation. FINDINGS: Vertebral and basilar arteries are patent. However, there is variable mild and moderate irregular ath erosclerotic narrowing within the V4 segment left vertebral artery spanning approximately 9 mm. This corresponds to some irregular enhancement on the postcontrast axial images of the brain from 0. The appearance is unchanged compared to the enhancement seen on 10/24/2019. The bilateral internal carotid arteries are patent. Slightly hypoplastic A1 segment left anterior cer ebral artery Otherwise, anterior and posterior circulations are patent. No aneurysmal changes identified. IMPRESSION: 1. No aneurysmal change. 2. Mild and moderate atherosclerotic narrowing involving a 9 mm long span of the V4 segment left vert ebral artery. 3. Otherwise, no significant stenosis or intracranial occlusion seen.
--- NOTE | 2019-11-19 16:44 | CONS ---
CONSULTATION HISTORY: This is an 79-year-old white male who complained that on the morning of 11/17, he woke up feeling pain and sinus pressure around his left eye. The patient stated that the pain eventually left but he was unable to open his left eye ever since then with the lid drooping since the 17 of November. The patient does not complain of vision loss and states that when his lid is lifted manually he can still see fine. EXAMINATION: Visual acuity with correction measured 20/40 OD and 20/25 OS. The pupils were asymmetric with the right being 2 mm and reactive and the left being 3 mm and reactive. There was no significant afferent pupillary defect, however. On penlight examination, there was an obvious complete ptosis of the left upper lid. The conjunctiva was quiet bilaterally. The corneas were clear. The anterior chambers were deep and well formed. The irises were normal. There were moderate cataract changes in the right eye and a posterior chamber lens implant in the left. Fundus examination revealed normal- appearing maculae, vessels, and disks. Extraocular movements revealed a restriction of the left eye in superior nasal and inferior gaze. The left lateral gaze was intact. The right eye exhibited normal extraocular movements in all gaze positions. Diplopia was elicited in primary gaze and was resolved with the patient looking in extreme left gaze. IMPRESSION: 1. Third cranial nerve palsy, left side. This patient has a very obvious third nerve palsy and the possibility of this being due to an aneurysm must be considered. The patient had an MRI scan of the brain 11/18/2019 which did not show evidence of metastatic disease. Most spontaneous third nerve palsies are due to microvascular disease and resolve spontaneously; however, a small percentage can be due to an aneurysm of the posterior communicating artery. The aneurysms typically involve the pupil of the affected side; however, because of this patient's previous cataract surgery on the left side, it is very possible that his slightly larger pupil diameter in the left was due to stretching procedure that was done during commission of previous cataract surgery. In order to be safe, I would recommend an MRA of the brain with special attention to the brain stem in the origin of the third cranial nerve in order to rule out the possibility of an aneurysm that would be causing this. If this can be ruled out, the patient will likely recover spontaneously at home with over 90% of these improving on their own. 2. Cataract, right eye. We will follow up with this at a later date when the patient is medically stable. I will be happy to see this patient upon discharge. MMODL / IJN: [id number] /
[2019-11-19] MEDS: FLUTICASONE PROPION PO SCH (20:18)
[2019-11-19] MEDS: SALMETEROL PO SCH (20:18)
[2019-11-19] MEDS: APIXABAN 2.5 MG TABLET PO SCH (20:58)
[2019-11-19] MEDS ORDERED: PRAVASTATIN SODIUM 40 MG TAB PO SCH (21:00)
[2019-11-19] MEDS ORDERED: PANTOPRAZOLE 40 MG TABLET PO SCH (21:00)
[2019-11-19] MEDS ORDERED: MONTELUKAST 10 MG TAB PO SCH (21:00)
[2019-11-19] MEDS ORDERED: FLUoxetine HCL 20 MG CAP PO SCH (21:00)
[2019-11-20] MEDS ORDERED: LEVOTHYROXINE 50 MCG TAB PO SCH (06:30)
[2019-11-20 06:35] LABS: Basophils % (A) 1 %; Eosinophils # (A) 0.1 k/uL (0-0.7); Eosinophils % (A) 2 %; HCT 32.3 % (39.0-53.0); Lymphocytes # (A) 0.8 k/uL (1.0-4.8); Lymphocytes % (A) 22 %; MCH 32.3 pg (25.0-35.0); MCV 95.1 fL (80.0-100.0); Mean Platelet Volume 7.6; Monocytes # (A) 0.1 k/uL (0-1.0); Monocytes % (A) 4 %; Neutrophils # (A) 2.4 k/uL (1.3-7.7); Neutrophils % (A) 68 %; Platelet Count 160 k/uL (150-450); RBC 3.39 m/uL (4.30-5.90); RDW 14.8 % (11.5-15.5); WBC 3.5 k/uL (3.8-10.6)
[2019-11-20] MEDS: LEVOTHYROXINE 50 MCG TAB PO SCH (07:40)
[2019-11-20] MEDS: APIXABAN 2.5 MG TABLET PO SCH (08:10)
[2019-11-20] MEDS: TAMSULOSIN 0.4 MG CAP.ER.24H PO SCH (08:10)
[2019-11-20] MEDS: SALMETEROL PO SCH (08:10)
[2019-11-20] MEDS: predniSONE 5 MG TAB PO SCH (08:10)
[2019-11-20] MEDS: FLUTICASONE PROPION PO SCH (08:10)
[2019-11-20] MEDS: FOLIC ACID 1 MG TAB PO SCH (08:10)
[2019-11-20] MEDS: METOPROLOL TARTRATE 50 MG TAB PO SCH (08:10)
[2019-11-20] MEDS ORDERED: predniSONE 5 MG TAB PO SCH (09:00)
[2019-11-20] MEDS ORDERED: APIXABAN 2.5 MG TABLET PO STA (09:26)
[2019-11-20 11:24] VITALS: BP 141/86; PULSE 55; TEMP 98.2
--- NOTE | 2019-11-20 12:16 | P.DS ---
Providers Date of admission: 11/18/19 16:18 Attending physician: Sky Mccormick Consults: 11/18/19 16:19 Consult Physician Routine Consulting Provider: Wili Quinn Consult Reason/Comments: New-onset A. fib with RVR Do you want consulting provider notified?: Yes 11/18/19 16:54 Consult Physician Routine Consulting Provider: Kehinde Rutherford Consult Reason/Comments: Lung CA on chemo Do you want consulting provider notified?: Yes 11/18/19 20:22 Consult Physician Routine Consulting Provider: Paolo Dooley Consult Reason/Comments: Assess for papilledema. Do you want consulting provider notified?: Yes 11/19/19 09:42 Consult Physician Routine Consulting Provider: Darien Garcia Consult Reason/Comments: possible 3 rd nerve plasy Do you want consulting provider notified?: Yes Primary care physician: [facility] Course: 79-year-old male was having lightheadedness and generalized weakness along with mild chest discomfort in any of found to have been atrial fibrillation with rapid ventricular rate. Patient is present is sinus rhythm rate controlled. Patient was also having double vision without any problems and acute effusion. Patient is unable to open his left eye. Doesn't have any other facial weakness doesn't have any other weakness or tingling and numbness anywhere in the body. Patient appears to have isolated third nerve palsy patient had an MRI of the orbits and the MRI of the brain which did not show any third nerve lesion. Patient appears to have some papilledema. Patient does have weakness of the medial rectus muscle and cannot move his eye superiorly either probably superior oblique palsy. Patient had ejection fraction of around 45-50% 11/20/2019 Patient does have paternal palsy MRA of the head did not show any aneurysm patient is not diabetic patient will be started on Eliquis and beta ava will be discharged today. There is no metastatic disease to the brain either. PHYSICAL EXAMINATION: GENERAL: The patient is alert and oriented x3, not in any acute distress. Well developed, well nourished. HEENT: Pupils are round and equally reacting to light. EOMI. No scleral icterus. No conjunctival pallor. Normocephalic, atraumatic. No pharyngeal erythema. No thyromegaly. CARDIOVASCULAR: S1 and S2 present. No murmurs, rubs, or gallops. PULMONARY: Chest is clear to auscultation, no wheezing or crackles. ABDOMEN: Soft, nontender, nondistended, normoactive bowel sounds. No palpable organomegaly. MUSCULOSKELETAL: No joint swelling or deformity. EXTREMITIES: No cyanosis, clubbing, or pedal edema. NEUROLOGICAL: Gross neurological examination did not reveal any focal deficits. Cranial nerve palsy patient is unable to lift his left eyelid with mild pupillary dilatation lung with medial rectus superior probably can superior rectus palsy on the left side SKIN: No rashes. Assessment and Plan Plan: -Atrial fibrillation presently rate controlled presently sinus rhythm patient will be discharged on metoprolol and Eliquis -Isolated third nerve palsy etiology is not known although there is no aneurysm can be still microangiopathy without evidence for rectus -Congestive heart failure mildly decreased ejection fraction unsure whether it's acute or chronic chronic systolic dysfunction although patient is not in acute heart failure exacerbation this heart failure can be acute from atrial fibrillation -Hyponatremia probably secondary to ascites from a non-small cell lung cancer patient need to be on fluid restricted diet -Non-small cell lung cancer on chemotherapy -Renal failure appears to be mostly acute renal failure probably prerenal azotemia . -COPD without any acute exacerbation -Coronary artery disease -Gastroesophageal reflux disease -Hyperlipidemia -Hypertension and-hypothyroidism -Sleep apnea Patient Condition at Discharge: Stable Plan - Discharge Summary Discharge Rx Participant: No New Discharge Prescriptions: New Metoprolol Tartrate [Lopressor] 50 mg PO BID #60 tab Rivaroxaban [Xarelto] 20 mg PO DAILY 30 Days #30 tab Continue Montelukast [Singulair] 10 mg PO HS Levothyroxine Sodium [Synthroid] 50 mcg PO DAILY FLUoxetine HCL [PROzac] 20 mg PO HS Tamsulosin [Flomax] 0.4 mg PO DAILY Pravastatin Sodium [Pravachol] 40 mg PO HS Omeprazole [PriLOSEC] 40 mg PO HS Folic Acid 1 mg PO HS Fluticasone Nasal Gaastra [Flonase Nasal Gaastra] 1 spray EA NOSTRIL DAILY predniSONE 5 mg PO DAILY Fluticasone/Umeclidin/Vilanter [Trelegy Ellipta 100-62.5-25] 1 puff INHALATION RT-DAILY Fluticasone Propion/Salmeterol [Wixela 250-50 Inhub] 1 puff PO RT-BID Lisinopril [Zestril] 2.5 mg PO DAILY Discontinued amLODIPine [Norvasc] 5 mg PO DAILY Discharge Medication List FLUoxetine HCL [PROzac] 20 mg PO HS 08/05/14 [History] Levothyroxine Sodium [Synthroid] 50 mcg PO DAILY 08/05/14 [History] Montelukast [Singulair] 10 mg PO HS 08/05/14 [History] Omeprazole [PriLOSEC] 40 mg PO HS 08/05/14 [History] Pravastatin Sodium [Pravachol] 40 mg PO HS 08/05/14 [History] Tamsulosin [Flomax] 0.4 mg PO DAILY 08/05/14 [History] Folic Acid 1 mg PO HS 02/12/18 [History] Fluticasone Nasal Gaastra [Flonase Nasal Gaastra] 1 spray EA NOSTRIL DAILY 11/18/19 [History] Fluticasone Propion/Salmeterol [Wixela 250-50 Inhub] 1 puff PO RT-BID 11/18/19 [History] Fluticasone/Umeclidin/Vilanter [Trelegy Ellipta 100-62.5-25] 1 puff INHALATION RT-DAILY 11/18/19 [History] Lisinopril [Zestril] 2.5 mg PO DAILY 11/18/19 [History] predniSONE 5 mg PO DAILY 11/18/19 [History] Metoprolol Tartrate [Lopressor] 50 mg PO BID #60 tab 11/20/19 [Rx] Rivaroxaban [Xarelto] 20 mg PO DAILY 30 Days #30 tab 11/20/19 [Rx] Follow up Appointment(s)/Referral(s): Raul Lima MD [STAFF PHYSICIAN] - 2 Weeks Kehinde Rutherford MD [Primary Care Provider] - 1-2 days Discharge Disposition: HOME SELF-CARE
--- NOTE | 2019-11-20 12:16 | P.PN ---
Subjective Progress Note Date: 11/20/19 This is a pleasant 79-year-old gentleman who follows regularly with Dr. Ortez in the office. He has a known history of hypertension, hyperlipidemia, coronary artery disease with prior stent placement, hypothyroidism, non-small cell lung cancer on chemotherapy, presented to the hospital with symptoms of weakness, was sent over to undergo an MRI, patient was found to be in A. fib with RVR and for this reason a cardiology consultation was requested. The patient's echocardiogram with Doppler study revealed an ejection fraction of 45-50%. He also has known aortic stenosis which Dr. Ortez has been following in the office. Patient also was complaining of drooping of his left eye on presentation here. At the time of my examination this morning, patient is sitting up in bed, he continues to have drooping of the left eye but overall feels well. He states he was having some dizziness prior to coming to the hospital but this morning denies any dizziness. His heart rate is in the 80s to 90s today, he continues to be in atrial fibrillation. We did check on coverage for the patient, he is not covered for Eliquis but the patient is covered for xarelto which we will initiate today. Blood pressure 140/80, heart rate in the 70s to 80s. White blood cell count 3.5, hemoglobin of 11.0. Objective - Vital Signs Vital signs: Vital Signs Temp 98.2 F 11/20/19 11:00 Pulse 55 L 11/20/19 11:00 Resp 18 11/20/19 11:00 BP 141/86 11/20/19 11:00 Pulse Ox 92 L 11/20/19 11:00 Intake & Output 11/19/19 11/20/19 11/20/19 18:59 06:59 18:59 Intake Total 858.838 240 Output Total 700 280 Balance 158.838 -280 240 Weight 102.5 kg Intake: Intake, IV Titration 138.838 Amount Heparin Sod,Pork in 0.45% 138.838 NaCl 25,000 unit In 0.45 % NaCl 1 250ml.bag @ 10. 254 UNITS/KG/HR 10 mls/hr IV .Q24H JUSTEN Rx#: [id number] Oral 720 240 Output: Urine 700 280 Other: Voiding Method Toilet # Voids 1 1 1 - Exam PHYSICAL EXAMINATION: GENERAL: 79-year-old gentleman in no acute distress at the time of my examination HEENT: Head is atraumatic, normocephalic. Pupils equal, round. Sclera anicteric. Conjunctiva are clear. Left droopy eyelid. Mucous membranes of the m outh are moist. Neck is supple. There is no elevated jugular venous pressure. No carotid bruit is heard. HEART EXAMINATION: Heart S1 and S2 irregularly irregular a systolic murmur is heard CHEST EXAMINATION: Lungs are clear to auscultation and precussion. No chest wall tenderness is noted on palpation or with deep breathing. ABDOMEN: Soft, nontender. Bowel sounds are heard. No organomegaly noted. EXTREMITIES: 2+ peripheral pulses with no evidence of peripheral edema and no calf tenderness noted. NEUROLOGIC patient is awake, alert and oriented 3 . . - Labs CBC & Chem 7: 11/20/19 05:55 11/19/19 04:16 Labs: Abnormal Lab Results - Last 24 Hours (Table) 11/20/19 Range/Units 05:55 WBC 3.5 L (3.8-10.6) k/uL RBC 3.39 L (4.30-5.90) m/uL Hgb 11.0 L (13.0-17.5) gm/dL Hct 32.3 L (39.0-53.0) % Lymphocytes # 0.8 L (1.0-4.8) k/uL Assessment and Plan Plan: Assessment and plan #1-Atrial fibrillation , persistent, heart rate in the 80s today #2-Isolated third nerve palsy , with left eye drooping #3-Non-small cell lung cancer on chemotherapy #4-Renal failure #5-COPD without any acute exacerbation #6 coronary artery disease with prior stent placement #7 Gastroesophageal reflux disease #8-Hyperlipidemia #9-Hypertension #10-hypothyroidism #11-Sleep apnea Plan Patient was not covered for Eliquis, we will start him on xarelto, continue current dose of beta ava. From our perspective he may be able to be discharged home and follow-up with Dr. Ortez in the office post discharge. DNP note has been reviewed, I agree with a documented findings and plan of care. Patient was seen and examined.
--- NOTE | 2019-11-20 12:39 | XR ---
EXAMINATION TYPE: XR chest 1V DATE OF EXAM: 11/20/2019 COMPARISON: 11/18/2019 HISTORY: Congestive heart failure TECHNIQUE: Single frontal view of the chest is obtained. FINDINGS: Mild pulmonary vascular congestion throughout appears slightly more exaggerated in the lef t hemithorax than right as seen on the prior possibly due to mild rotation. Cardia mediastinal silhou ette is enlarged. Minimal blunting of the costophrenic angles suggests very trace pleural effusions. No sizable pneumothorax. Bilateral humeral arthroplasties, reverse arthroplasty in the left.. The kno wn right pulmonary nodules seen on the prior CT of [address] than radiograph. IMPRESSION: Mild diffuse pulmonary vascular congestion and very trace pleural effusions
--- NOTE | 2019-11-20 13:10 | P.PN ---
Subjective Progress Note Date: 11/20/19 Principal diagnosis: nerve paralysis Neurology did evaluate patient and recommended ASA 81mg and steroid taper, agree Objective - Vital Signs Vital signs: Vital Signs Temp 98.2 F 11/20/19 11:00 Pulse 55 L 11/20/19 11:00 Resp 18 11/20/19 11:00 BP 141/86 11/20/19 11:00 Pulse Ox 92 L 11/20/19 11:00 Intake & Output 11/19/19 11/20/19 11/20/19 18:59 06:59 18:59 Intake Total 858.838 480 Output Total 700 280 Balance 158.838 -280 480 Weight 102.5 kg Intake: Intake, IV Titration 138.838 Amount Heparin Sod,Pork in 0.45% 138.838 NaCl 25,000 unit In 0.45 % NaCl 1 250ml.bag @ 10. 254 UNITS/KG/HR 10 mls/hr IV .Q24H JUSTEN Rx#: [id number] Oral 720 480 Output: Urine 700 280 Other: Voiding Method Toilet # Voids 1 1 1 - Labs CBC & Chem 7: 11/20/19 05:55 11/19/19 04:16 Labs: Abnormal Lab Results - Last 24 Hours (Table) 11/20/19 Range/Units 05:55 WBC 3.5 L (3.8-10.6) k/uL RBC 3.39 L (4.30-5.90) m/uL Hgb 11.0 L (13.0-17.5) gm/dL Hct 32.3 L (39.0-53.0) % Lymphocytes # 0.8 L (1.0-4.8) k/uL Assessment and Plan Plan: Assessment and Recommendations: Non-Small Cell Lung Cancer: - Details and History reviewed in HPI - Recently Treated with Immune Therapy (opdivo), Stopped 12/19/18 - Status Post treatment with carboplatin and Almta x4 - currently on maintenace almta Neurological Symptoms: - Isolated third nerve palsy, MRA and neurology consult per primary team - Recent MRI 09/2019 concern for acute infarct - MRI today reviewed without evidence of metastatic disease - Opthomology to assess for potential papiledema - COntinue Folic acid as patient is on Almta maintenance Acute Renal Insufficiency: - Likely prerenal - Monitor BMP - Gentle Hydration Did review neurology note to restart his 81mg aspirin and start steroid taper, agre with both Can follow up in office after discharge. Physician Attestation: I have performed the full physical examination and reviewed the full history of this patient, as well as pertinent findings. I have created the compled impression and recommendations. I agree with the above dictation by ROB Domingo. This dictation has been written as a scribe.
--- NOTE | 2019-11-20 14:12 | P.PN ---
Subjective Progress Note Date: 11/20/19 Patient states his left eye is getting better. No new focal symptoms. Objective - Vital Signs Vital signs: Vital Signs Temp 98.2 F 11/20/19 11:00 Pulse 55 L 11/20/19 11:00 Resp 18 11/20/19 11:00 BP 141/86 11/20/19 11:00 Pulse Ox 92 L 11/20/19 11:00 Intake & Output 11/19/19 11/20/19 11/20/19 18:59 06:59 18:59 Intake Total 858.838 480 Output Total 700 280 Balance 158.838 -280 480 Weight 102.5 kg Intake: Intake, IV Titration 138.838 Amount Heparin Sod,Pork in 0.45% 138.838 NaCl 25,000 unit In 0.45 % NaCl 1 250ml.bag @ 10. 254 UNITS/KG/HR 10 mls/hr IV .Q24H JUSTEN Rx#: [id number] Oral 720 480 Output: Urine 700 280 Other: Voiding Method Toilet # Voids 1 1 1 - Exam Continues to have left third nerve palsy. Patient able to elevate his left eyelid slightly better than yesterday. The rest of the examination unchanged. - Labs CBC & Chem 7: 11/20/19 05:55 11/19/19 04:16 Labs: Abnormal Lab Results - Last 24 Hours (Table) 11/20/19 Range/Units 05:55 WBC 3.5 L (3.8-10.6) k/uL RBC 3.39 L (4.30-5.90) m/uL Hgb 11.0 L (13.0-17.5) gm/dL Hct 32.3 L (39.0-53.0) % Lymphocytes # 0.8 L (1.0-4.8) k/uL Assessment and Plan Assessment: * Acute, isolated left third nerve palsy, unclear etiology, possibly due to small vessel disease. No evidence of other cranial nerve dysfunction. No evidence of acute stroke noted on MRI of the brain. * Metastatic lung cancer, stable. Plan: * Patient's MRI of the brain is normal, with no evidence of meningeal carcinomatosis, or an acute stroke. * Ophthalmology input appreciated. * MRA of the brain showed no evidence of aneurysm. Mild to moderate atherosclerotic narrowing involving a 9 mm long span of V4 segment left vertebral artery. * I would suggest starting aspirin 81 mg daily if no medical contraindication. * Carotid Doppler showed no hemodynamically significant stenosis. Antegrade flow in both vertebral arteries. * Neurologically clear for discharge with the above recommendations. Follow-up with ophthalmology as outpatient.
[2019-11-20] MEDS ORDERED: RIVAROXABAN 20 MG TAB PO SCH (17:30)
[2019-11-20] MEDS ORDERED: APIXABAN 5 MG TAB PO SCH (21:00)
--- NOTE | 2019-11-29 06:05 | CDI ---
Documentation Clarification Form Date: 11/29/2019 05:39:51 AM From: Adela Andersen Phone: If you have a question about this query, please contact Shalonda Ardon [employer] Supervisor at [phone] between 8am and 5pm. Admit Date: 11/18/2019 04:18:00 PM Patient Name: Yunier Lu Visit Number: [id number] Discharge Date: 11/20/2019 02:06:00 PM ATTENTION: The Clinical Documentation Specialists (CDI) and [facility] Coding Staff appreciate your assistance in clarifying documentation. Please respond to the clarification below the line at the bottom and electronically sign. The CDI & [facility] Coding staff will review the response and follow-up if needed. Please note: Queries are made part of the Legal Health Record. If you have any questions, please contact the author of this message via ITS. Dr. Moody Ha CHF is documented in the DCS "CHF mildly depressed EF unsure whether its acute or chronic systolic dysfunction although patient is not in acute heart failure exacerbation this heart failure can be acute from atrial fib." Please clarify if patient's systolic CHF was acute due to persistent atrial fib. History/Risk Factors:dizziness, SOB, exertional dyspnea, palpitations. Hx of CAD, heart failure, HTN, lung CA, Atrial fib with RVR, lung cancer Clinical Indicators: VS/Pulse OX: 97.3F, 11/17 - 130 bpm, 22 SOB cough tachypnea, 177/77, 97%RA Echocardiogram Results: EF 45-50% LVH Aortic stenosis Chest X Ray: mild vascular congestion exaggerated on the left. Mildly enlarged cardiac mediastinal silhouette. Consider CHF. Treatment: Cardizem In your professional opinion, can you please clarify the acuity and type of CHF if known? Systolic Heart Failure: Acute Chronic Acute on Chronic Other Unable to determine __ Unable to determine, already dictated in my note. And this query is not necessary MTDD
== END 2019-11-20 14:06 | disposition home or self-care (01) | DRG 309 ==
LOC: EC 14:37 → 3SCARD 16:18
PROVIDERS: ADMIT Internal Medicine; ATTEND Internal Medicine
DX: I48.19 Other persistent atrial fibrillation (principal); E87.1 Hypo-osmolality and hyponatremia; H47.10 Unspecified papilledema; N17.9 Acute kidney failure, unspecified; R18.8 Other ascites; C34.92 Malignant neoplasm of unspecified part of left bronchus or lung; C78.01 Secondary malignant neoplasm of right lung; I50.22 Chronic systolic (congestive) heart failure; E03.9 Hypothyroidism, unspecified; E78.5 Hyperlipidemia, unspecified; G47.30 Sleep apnea, unspecified; Z99.89 Dependence on other enabling machines and devices; H02.402 Unspecified ptosis of left eyelid; H26.9 Unspecified cataract; H49.02 Third [oculomotor] nerve palsy, left eye; I11.0 Hypertensive heart disease with heart failure; I25.10 Atherosclerotic heart disease of native coronary artery without angina pectoris; I35.0 Nonrheumatic aortic (valve) stenosis; J32.4 Chronic pansinusitis; J44.9 Chronic obstructive pulmonary disease, unspecified; K21.9 Gastro-esophageal reflux disease without esophagitis; Z87.19 Personal history of other diseases of the digestive system; Z79.890 Hormone replacement therapy; Z79.899 Other long term (current) drug therapy; Z80.0 Family history of malignant neoplasm of digestive organs; Z80.1 Family history of malignant neoplasm of trachea, bronchus and lung; Z85.118 Personal history of other malignant neoplasm of bronchus and lung; Z85.46 Personal history of malignant neoplasm of prostate; Z85.828 Personal history of other malignant neoplasm of skin; Z87.891 Personal history of nicotine dependence; Z95.5 Presence of coronary angioplasty implant and graft; Z98.42 Cataract extraction status, left eye; Z96.1 Presence of intraocular lens; F32.9 Major depressive disorder, single episode, unspecified; Z92.3 Personal history of irradiation; Z87.01 Personal history of pneumonia (recurrent)
CPT/HCPCS: 36415; 70543; 70544; 70553; 71045; 71046; 80048; 80053; 81003; 83735; 84484; 85025; 85610; 85730; 93005; 93306; 93880; 96365; 96375; 96376; 99291

== ENCOUNTER → 2019-11-18 | Outpatient (CLI) | payer MEDICARE ==
--- NOTE | 2019-11-18 14:41 | MR ---
EXAMINATION TYPE: MR brain/orbits wo/w con DATE OF EXAM: 11/18/2019 COMPARISON: NONE HISTORY: Lung Cancer/ Facial Drooping, Diplopia TECHNIQUE: Multiplanar, multisequence images of the orbits, brain and brainstem is performed without and with IV contrast, utilizing 10 mL intravenous Gadavist . FINDINGS: Diffusion weighted images demonstrate no evidence of a recent infarct or other diffusion ab normality. There is no extra-axial fluid collection. Mild burden nonspecific white matter changes se en in the periventricular and subcortical white matter demonstrated as foci of T2/FLAIR hyperintensit y. The ventricular system and cisternal spaces are moderately prominent compatible with age-related v olume loss. Midline structures demonstrate normal morphology. There is a small 3 mm nonenhancing pineal gland cys t. No narrowing of the cerebral aqueduct. Prominent perivascular spaces are incidentally seen at the level inferior basal ganglia. The craniocervical junction appears within normal limits. Post contra st images demonstrate no abnormal enhancement. The dural venous sinuses appear patent. The visualized sinuses demonstrate mild mucosal thickening throughout. The globes are intact. The left ocular lens appears surgically absent. There is trace fluid in the left mastoid air cells. Right mastoid air cell s are well aerated. There is undulation of the left optic nerve is slightly prominent perineural flui d. IMPRESSION: 1. No acute infarct, midline shift or mass effect. No abnormal intracranial enhancement. No evidence of intracranial metastasis. 2. Undulation of the left optic nerve and slight prominence of optic nerve perineural fluid, which ca n be seen in increased intracranial pressure. No other MR evidence of intracranial pressure. Correlat e with ophthalmologic exam to ensure no papilledema. 3. Left ocular lens appears surgically absent. Ensure surgical history is fitting. 4. Trace amount of fluid in the left mastoid air cells that may clinically correlate with mastoiditis . Mild pansinusitis. 5. Mild burden nonspecific white matter change, most commonly on the basis of chronic microangiopathy .
== END | disposition home or self-care (01) ==
LOC: RADMRIMAIN 13:18
PROVIDERS: ATTEND Internal Medicine Hematology & Oncology
DX: R90.89 Other abnormal findings on diagnostic imaging of central nervous system (principal); I73.9 Peripheral vascular disease, unspecified; J32.4 Chronic pansinusitis; H53.2 Diplopia
CPT/HCPCS: 70543; 70553; A9585

== ENCOUNTER 2019-12-10 08:39 | Day surgery (SDC) | payer MEDICARE ==
[2019-12-10 09:10] LABS: Mean Platelet Volume 7.9; Platelet Count 221 k/uL (150-450)
[2019-12-10] MEDS ORDERED: ALPRAZolam 0.25 MG TAB PO ONE (09:17)
[2019-12-10 09:24] LABS: Prothrombin Time 10.2 sec (9.0-12.0)
[2019-12-10 09:40] VITALS: TEMP 97.8
[2019-12-10 10:09] VITALS: PULSE 60; RESP 16
[2019-12-10 10:56] VITALS: BP 187/100
== END 2019-12-10 10:40 | disposition home or self-care (01) ==
LOC: RADPROMAIN 08:39
PROVIDERS: ATTEND Internal Medicine Hematology & Oncology
DX: C34.90 Malignant neoplasm of unspecified part of unspecified bronchus or lung (principal); Z53.09 Procedure and treatment not carried out because of other contraindication; R03.0 Elevated blood-pressure reading, without diagnosis of hypertension; H53.2 Diplopia
CPT/HCPCS: 36415; 85049; 85610

== ENCOUNTER 2019-12-16 07:37 | Day surgery (SDC) | payer MEDICARE ==
[2019-12-16 08:34] VITALS: TEMP 97.2
[2019-12-16] MEDS ORDERED: ALPRAZolam 0.25 MG TAB PO STA (08:40)
[2019-12-16 11:04] LABS: Total Protein,CSF 47 mg/dL (12-60)
[2019-12-16 11:07] LABS: Appearance,CSF Clear; CSF Tube Number 4; Nucleated Cells, CSF 0 u/L (0-5); Red Blood Cell,CSF 2 u/L (0-10)
[2019-12-16] MEDS ORDERED: hydrALAZINE HCL 20 MG/ML 1 ML VIAL IVP STA (13:00)
[2019-12-16 17:54] VITALS: RESP 16
[2019-12-16 17:59] VITALS: BP 156/78; PULSE 55
--- NOTE | 2019-12-16 20:07 | FL ---
EXAMINATION TYPE: FL guided lumbar puncture LP DATE OF EXAM: 12/16/2019 COMPARISON: NONE HISTORY: New onset proptosis and diplopia, history of advanced lung cancer. TECHNIQUE: Fluoroscopic assisted lumbar puncture. A total of 2 minutes 52 seconds of fluoroscopic jacky e utilized during procedure. 0 spot images saved to PACS. FINDINGS: Fluoroscopic guidance was provided during lumbar puncture procedure to obtain CSF performe d by myself. Oncologist provided desired laboratory orders. Vital signs monitored before during and after procedure. Hypertension noted especially when patient i s in prone position. Benefits alternatives and risks were discussed. Informed consent was obtained. Overlying skin is cleansed with Betadine. Lidocaine is used as local anesthetic into the skin and marina per tissue. Under fluoroscopic guidance, first attempts are unsuccessful at L2-L3 level utilizing 22- gauge spinal needle. Subsequent second attempt utilizing 20-gauge spinal needle is successful. Approx imately 10 cc of clear CSF was obtained. At this point needle is withdrawn. Patient tolerated procedure well without complication. The patient kept in the hospital for shortly a fter procedure and discharged home in stable condition. IMPRESSION: Successful uncomplicated fluoroscopically assisted lumbar puncture for CSF analysis.
== END 2019-12-16 12:53 | disposition home or self-care (01) ==
LOC: RADPROMAIN 07:37
PROVIDERS: ATTEND Internal Medicine Hematology & Oncology
DX: H53.2 Diplopia (principal); C34.11 Malignant neoplasm of upper lobe, right bronchus or lung
CPT/HCPCS: 88108; 84157; 89050; 62328; J0360; J2001

== ENCOUNTER → 2020-01-22 | Outpatient (CLI) | payer MEDICARE ==
--- NOTE | 2020-01-22 14:22 | CT ---
EXAMINATION TYPE: CT ChestAbdPelvis w con DATE OF EXAM: 01/22/2020 COMPARISON: 09/04/19 HISTORY: follow up lung cancer CT DLP: 1545.2 mGycm CONTRAST: CT scan of the chest, abdomen and pelvis is performed with Oral Contrast and with IV Contrast, patien t injected with 100 mL of Isovue 300. CT Chest: LUNGS: Subpleural nodule right upper lobe paraspinal region is again noted and currently measures 2.4 x 2.5 x 1.5 cm versus 2.8 x 1.6 cm. Right basilar subpleural nodule measures 1.1 cm versus 1.2 cm pr eviously axial image 53 at the costophrenic angle region. Pleural-parenchymal scarring left lower lob e no new nodules or masses seen. MEDIASTINUM: Thoracic aorta is of normal caliber. The heart is not enlarged. No evidence for media stinal mass or adenopathy. HILAR STRUCTURES: No evidence for mass. No hilar adenopathy is appreciated. OTHER: No significant abnormality. CONTRAST CT ABDOMEN AND PELVIS FINDINGS: LIVER/GB: Soft gallstones noted. Mild hepatic steatosis. No space occupying hepatic lesion. Biliary t ree is of normal caliber. PANCREAS: No inflammation. No distinct mass. SPLEEN: No splenic enlargement. No lesion seen. ADRENALS: No nodule. No thickening. KIDNEYS/BLADDER: No hydronephrosis. No nephrolithiasis. Renal cystic changes redemonstrated. BOWEL: Normal appendix. Normal bowel caliber. No inflammation. GENITAL ORGANS: No gross abnormality. LYMPH NODES: No greater than 1cm abdominal or pelvic lymph nodes are appreciated. AORTA: No significant abnormality. OSSEOUS STRUCTURES: No significant abnormality is seen. OTHER: No significant additional abnormality is seen. IMPRESSION: 1. Subpleural nodules right lung persist although have decreased slightly in size. No new nodules see n. 2. Pleural parenchymal thickening left lung is also unchanged. 3. No evidence for metastatic disease to the abdomen or pelvis at this time.
== END | disposition home or self-care (01) ==
LOC: RADCTMAIN 10:26
PROVIDERS: ATTEND Internal Medicine Hematology & Oncology
DX: R91.8 Other nonspecific abnormal finding of lung field (principal); J92.9 Pleural plaque without asbestos; C34.11 Malignant neoplasm of upper lobe, right bronchus or lung
CPT/HCPCS: 82565; 84520; 71260; 74177; 36415; Q9967

== ENCOUNTER 2020-02-25 22:58 | Emergency (ER) | payer MEDICARE ==
[2020-02-25 23:06] VITALS: RESP 20
[2020-02-25] MEDS ORDERED: HYDROmorphone 1 MG/ML 1 ML SYRINGE IM STA (23:40)
--- NOTE | 2020-02-25 23:40 | ED ---
Fall HPI - General Chief Complaint: Fall Stated Complaint: Fall, RT rib pain Time Seen by Provider: 02/25/20 23:19 Source: patient, RN notes reviewed, old records reviewed Mode of arrival: wheelchair Limitations: no limitations - History of Present Illness Initial Comments: This is an 79-year-old male presented for a few hours after fall. Patient with a ball playing softball in his right ribs. Patient has severe pain throughout the night worse when he takes deep breath worsening cough. Denying fevers. Is having increased cough but no other significant shortness of breath or fevers, no symptoms no sick contacts. 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 Witnessed: no Place Fall Occurred: street Loss of Consciousness: none Prolonged Down Time?: no Symptoms Prior to Fall: none, chest pain Severity: mild Severity scale (1-10): 3 Quality: crushing, aching Context: tripped/slipped Associated Symptoms: denies - Related Data Home Medications Medication Instructions Recorded Confirmed FLUoxetine HCL [PROzac] 20 mg PO HS 08/05/14 03/01/20 Levothyroxine Sodium [Synthroid] 50 mcg PO DAILY 08/05/14 03/01/20 Omeprazole [PriLOSEC] 40 mg PO HS 08/05/14 03/01/20 Tamsulosin [Flomax] 0.4 mg PO HS 08/05/14 03/01/20 Folic Acid 1 mg PO HS 02/12/18 03/01/20 Fluticasone/Umeclidin/Vilanter 1 puff INHALATION RT-DAILY 11/18/19 03/01/20 [Trelegy Ellipta 100-62.5-25] predniSONE 5 mg PO DAILY 11/18/19 03/01/20 Cholecalciferol [Vitamin D3 (25 1,000 unit PO DAILY 03/01/20 03/01/20 Mcg = 1000 Iu)] L.acidoph,Paracasei, B.lactis 1 tab PO DAILY 03/01/20 03/01/20 [Probiotic] Metoprolol Tartrate [Lopressor] 25 mg PO BID 03/01/20 03/01/20 Rivaroxaban [Xarelto] 20 mg PO HS 03/01/20 03/01/20 Previous Rx's Medication Instructions Recorded Budesonide [Pulmicort] 1 mg INHALATION RT-BID #60 ml 03/06/20 Cefuroxime Axetil [Ceftin] 500 mg PO BID 3 Days #6 tab 03/06/20 Ipratropium-Albuterol Nebulize 0 ml INHALATION QID #120 neb 03/06/20 [Duoneb 0.5 mg-3 mg/3 ml Soln] Lisinopril-Hctz 10-12.5 mg 1 each PO DAILY #30 tab 03/06/20 [Zestoretic 10-12.5] Oxymetazoline 0.05% Nasl [place] 3 spray NASAL BID #1 bottle 03/06/20 [Afrin 0.05% Nasal [place]] amLODIPine [Norvasc] 10 mg PO DAILY #30 tab 03/06/20 guaiFENesin [Mucinex] 1,200 mg PO Q12HR tablet.er 03/06/20 predniSONE 10 mg PO DAILY #30 tab 03/06/20 Allergies Allergy/AdvReac Type Severity Reaction Status Date / Time No Known Allergies Allergy Verified 03/01/20 16:02 Review of Systems ROS Statement: Those systems with pertinent positive or pertinent negative responses have been documented in the HPI. ROS Other: All systems not noted in ROS Statement are negative. 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 admission dated 12/26/18 as including diagnosis of OK/CHF History of Any Multi-Drug Resistant Organisms: None Reported Past Surgical History: Bowel Resection, Heart Catheterization, Heart Catheterization With Stent, Orthopedic Surgery, Tonsillectomy Additional Past Surgical History / Comment(s): 01/07/19 bronchoscopy with BAL, past bronchoscopies/bx, PCI with stent 2007, bilateral reconstructive ear surgery and gland removed under jaw, bowel resection d/t rupture with colostomy later reversed, L cataract removal, demetra fundoloplasty, bilateral total shoulders/knees, L knee arthroscopy x 2, EGD, colonoscopy, prostate bx, bilateral exciscion gynecomastia, skin cancer removals. Past Anesthesia/Blood Transfusion Reactions: No Reported Reaction, Motion Sickness Date of Last Stent Placement:: 2006 Past Psychological History: No Psychological Hx Reported Smoking Status: Former smoker Past Alcohol Use History: Occasional Past Drug Use History: None Reported - Past Family History Mother Family Medical History: Cancer Additional Family Medical History / Comment(s): MULTIPLE MEYLOMA Father Family Medical History: Cancer Additional Family Medical History / Comment(s): LUNG CANCER Sister(s) Family Medical History: Cancer Additional Family Medical History / Comment(s): sister had rectal cancer. Son(s) Family Medical History: Cancer Additional Family Medical History / Comment(s): Son has hodgkins lymphoma General Exam Limitations: no limitations General appearance: alert, in no apparent distress Head exam: Present: atraumatic, normocephalic, normal inspection Eye exam: Present: normal appearance, PERRL, EOMI. Absent: scleral icterus, conjunctival injection, periorbital swelling ENT exam: Present: normal exam, mucous membranes moist Neck exam: Present: normal inspection. Absent: tenderness, meningismus, lympha denopathy Respiratory exam: Present: normal lung sounds bilaterally. Absent: respiratory distress, wheezes, rales, rhonchi, stridor Cardiovascular Exam: Present: regular rate, normal rhythm, normal heart sounds. Absent: systolic murmur, diastolic murmur, rubs, gallop, clicks GI/Abdominal exam: Present: soft, normal bowel sounds. Absent: distended, tenderness, guarding, rebound, rigid Extremities exam: Present: normal inspection, full ROM, normal capillary refill. Absent: tenderness, pedal edema, joint swelling, calf tenderness Back exam: Present: normal inspection Neurological exam: Present: alert, oriented X3, CN II-XII intact Psychiatric exam: Present: normal affect, normal mood Skin exam: Present: warm, dry, intact, normal color. Absent: rash Course Vital Signs 02/25/20 02/26/20 02/26/20 23:03 01:06 02:27 Temperature 98.1 F 98.2 F Pulse Rate 60 88 78 Respiratory 20 20 20 Rate Blood Pressure 189/97 138/78 161/88 O2 Sat by Pulse 94 L 96 97 Oximetry - Reevaluation(s) Reevaluation #1: Medical records reviewed Patient states his chest pain is improved, no shortness of breath Medical Decision Making - Medical Decision Making 79-year-old male status post fall playing softball. Patient does sustain right- sided rib fracture hasn't subtle finding of pneumonia we'll choose antibiotics and discharged home - Radiology Data Radiology results: report reviewed (Chest x-ray shows right-sided rib fracture left-sided pneumonia), image reviewed Disposition Clinical Impression: Fall, Right rib fracture, Community acquired bacterial pneumonia Disposition: HOME SELF-CARE Condition: Good Instructions (If sedation given, give patient instructions): Rib Fracture (ED), Community Acquired Pneumonia (ED) Is patient prescribed a controlled substance at d/c from ED?: No Referrals: Roxie Melendez DO [Primary Care Provider] - 1-2 days
--- NOTE | 2020-02-26 00:46 | XR ---
EXAMINATION TYPE: XR ribs RT w pa chest xray DATE OF EXAM: 02/26/2020 COMPARISON: Chest x-ray 11/20/2019 HISTORY: Fall. Rib pain. TECHNIQUE: 5 views FINDINGS: There is some coarse interstitial infiltrate in the left lower lobe. There is mild pleural thickening on the left lateral chest wall. There is bilateral shoulder prosthesis. There is no heart failure. Thoracic aorta is atheromatous. There is nondisplaced fracture of the right lateral fifth an d sixth ribs. IMPRESSION: Fibrotic changes and pleural scarring in the left lower lobe. Acute pneumonia left lower lobe is also present. Left pulmonary infiltrates significantly increased compared to last exam. No he art failure. Acute fractures of right ribs.
[2020-02-26] MEDS ORDERED: CEPHALEXIN 500MG STARTER PACK 4 CAP BTL PO STA (01:55)
[2020-02-26] MEDS ORDERED: AZITHROMYCIN 500 MG TAB PO STA (01:55)
[2020-02-26] MEDS ORDERED: Acetaminophen-Codeine 300-30mg TAB PO STA (01:55)
[2020-02-26] MEDS ORDERED: cefTRIAXone 1,000 MG VIAL (IM USE) IM STA (01:55)
[2020-02-26] MEDS ORDERED: ACET/COD 300 MG/30 MG STARTER PACK 6 TAB BTL PO STA (01:55)
[2020-02-26 02:29] VITALS: BP 161/88; PULSE 78; TEMP 98.2
== END 2020-02-26 02:27 | disposition home or self-care (01) ==
LOC: EC 22:58
DX: S22.31XA Fracture of one rib, right side, initial encounter for closed fracture (principal); J15.9 Unspecified bacterial pneumonia; J44.9 Chronic obstructive pulmonary disease, unspecified; I48.91 Unspecified atrial fibrillation; I25.10 Atherosclerotic heart disease of native coronary artery without angina pectoris; I11.0 Hypertensive heart disease with heart failure; I50.9 Heart failure, unspecified; E78.5 Hyperlipidemia, unspecified; K21.9 Gastro-esophageal reflux disease without esophagitis; M19.90 Unspecified osteoarthritis, unspecified site; G47.30 Sleep apnea, unspecified; E07.9 Disorder of thyroid, unspecified; Z79.01 Long term (current) use of anticoagulants; Z79.51 Long term (current) use of inhaled steroids; Z79.890 Hormone replacement therapy; Z79.899 Other long term (current) drug therapy; Z85.118 Personal history of other malignant neoplasm of bronchus and lung; Z99.89 Dependence on other enabling machines and devices; Z95.5 Presence of coronary angioplasty implant and graft; Z87.891 Personal history of nicotine dependence; Z98.890 Other specified postprocedural states; Z85.46 Personal history of malignant neoplasm of prostate; Z85.828 Personal history of other malignant neoplasm of skin; Z80.1 Family history of malignant neoplasm of trachea, bronchus and lung; Z80.8 Family history of malignant neoplasm of other organs or systems; Z80.7 Family history of other malignant neoplasms of lymphoid, hematopoietic and related tissues; W18.30XA Fall on same level, unspecified, initial encounter; Y93.64 Activity, baseball
CPT/HCPCS: 71101; 99284; 96372 ×2; J0696; J1170

== ENCOUNTER 2020-03-01 09:26 | Inpatient (IN) | payer MEDICARE ==
[2020-03-01] MEDS ORDERED: SODIUM CHLORIDE 0.9% 500 ML 500 ML IV STA (09:44)
[2020-03-01] MEDS ORDERED: IPRATROPIUM-ALBUTEROL 3 ML NEB INHALATION STA (09:44)
[2020-03-01] MEDS ORDERED: KETOROLAC 60 MG/2 ML VIAL IVP STA (09:45)
--- NOTE | 2020-03-01 09:47 | ED ---
General Adult HPI - General Chief complaint: Shortness of Breath Stated complaint: SOB Time Seen by Provider: 03/01/20 09:30 Source: patient, RN notes reviewed, old records reviewed Mode of arrival: wheelchair Limitations: no limitations - History of Present Illness Initial comments: This is an 79-year-old male who presents emergency Department who had a fall earlier in the week and was diagnosed with 3 rib fractures as well as pneumonia. Patient was sent home on Tylenol with Codeine and antibiotics. Patient states it is getting more more difficult to breathing especially at night. Patient states the Tylenol threes also her take care of his pain. Patient denies any anterior chest pain. Patient denies any fever or chills. Patient denies any lightheadedness or dizziness. Patient denies any abdominal pain. Patient states the pain is right ribs. - Related Data Home Medications Medication Instructions Recorded Confirmed FLUoxetine HCL [PROzac] 20 mg PO HS 08/05/14 12/10/19 Levothyroxine Sodium [Synthroid] 50 mcg PO DAILY 08/05/14 12/10/19 Omeprazole [PriLOSEC] 40 mg PO HS 08/05/14 12/10/19 Tamsulosin [Flomax] 0.4 mg PO DAILY 08/05/14 12/10/19 Folic Acid 1 mg PO HS 02/12/18 12/10/19 Fluticasone Nasal [place] [Flonase 1 spray EA NOSTRIL DAILY 11/18/19 12/10/19 Nasal [place]] Fluticasone Propion/Salmeterol 1 puff PO RT-BID 11/18/19 12/10/19 [[place]ixela 250-50 [place]] Fluticasone/Umeclidin/Vilanter 1 puff INHALATION RT-DAILY 11/18/19 12/10/19 [Trelegy Ellipta 100-62.5-25] Lisinopril [Zestril] 2.5 mg PO DAILY 11/18/19 12/10/19 predniSONE 5 mg PO DAILY 11/18/19 12/10/19 Previous Rx's Medication Instructions Recorded Metoprolol Tartrate [Lopressor] 50 mg PO BID #60 tab 11/20/19 Rivaroxaban [Xarelto] 20 mg PO DAILY 30 Days #30 tab 11/20/19 Azithromycin [Zithromax Z-pack] 0 mg PO DIRECTED #1 pack 02/26/20 Allergies Allergy/AdvReac Type Severity Reaction Status Date / Time No Known Allergies Allergy Verified 03/01/20 09:29 Review of Systems ROS Statement: Those systems with pertinent positive or pertinent negative responses have been documented in the HPI. ROS Other: All systems not noted in ROS Statement are negative. Past Medical History Past Medical History: Atrial Fibrillation, Asthma, Coronary Artery Disease (CAD), Cancer, Heart Failure, COPD, GERD/Reflux, Hyperlipidemia, Hypertension, Osteoarthritis (OA), Pneumonia, Respiratory Disorder, Sleep Apnea/CPAP/BIPAP, Thyroid Disorder Additional Past Medical History / Comment(s): 2015 L lung adenoc arcinoma/malignant pleural effusion, 07/2018 SOB with exertion/cat scan showed multiple opacities L lower lung-had bronch/BAL and is currently being treated with chemotherapy again with last dose 2 weeks ago, diverticular disease, SBO with resection/colostomy/reversal of colostomy, prostate cancer with radiation tx, skin cancer removed from face, hypothyroid, occasional low back pain, pt and spouse denied [facility] admission dated 12/26/18 as including diagnosis of ID/CHF History of Any Multi-Drug Resistant Organisms: None Reported Past Surgical History: Bowel Resection, Heart Catheterization, Heart Catheterization With Stent, Orthopedic Surgery, Tonsillectomy Additional Past Surgical History / Comment(s): 01/07/19 bronchoscopy with BAL, past bronchoscopies/bx, PCI with stent 2006, bilateral reconstructive ear surgery and gland removed under jaw, bowel resection d/t rupture with colostomy later reversed, L cataract removal, demetra fundoloplasty, bilateral total shoulders/knees, L knee arthroscopy x 2, EGD, colonoscopy, prostate bx, bilateral exciscion gynecomastia, skin cancer removals. Past Anesthesia/Blood Transfusion Reactions: No Reported Reaction, Motion Sickness Date of Last Stent Placement:: 2006 Past Psychological History: No Psychological Hx Reported Smoking Status: Former smoker Past Alcohol Use History: Occasional Past Drug Use History: None Reported - Past Family History Mother Family Medical History: Cancer Additional Family Medical History / Comment(s): MULTIPLE MEYLOMA Father Family Medical History: Cancer Additional Family Medical History / Comment(s): LUNG CANCER Sister(s) Family Medical History: Cancer Additional Family Medical History / Comment(s): sister had rectal cancer. Son(s) Family Medical History: Cancer Additional Family Medical History / Comment(s): Son has hodgkins lymphoma General Exam - General Exam Comments Initial Comments: GENERAL: Patient is well-developed and well-nourished. Patient is nontoxic and well- hydrated and is in mild distress. ENT: Neck is soft and supple. No significant lymphadenopathy is noted. Oropharynx is clear. Moist mucous membranes. Neck has full range of motion without eliciting any pain. EYES: The sclera were anicteric and conjunctiva were pink and moist. Extraocular movements were intact and pupils were equal round and reactive to light. Eyelids were unremarkable. PULMONARY: Unlabored respirations. Good breath sounds bilaterally. No audible rales rhonchi or wheezing was noted. CARDIOVASCULAR: There is a regular rate and rhythm without any murmurs gallops or rubs. Patient has right rib pain laterally ABDOMEN: Soft and nontender with normal bowel sounds. SKIN: Skin is clear with no lesions or rashes and otherwise unremarkable. NEUROLOGIC: Patient is alert and oriented x3. Cranial nerves II through XII are grossly intact. Motor and sensory are also intact. Normal speech, volume and content. Symmetrical smile. MUSCULOSKELETAL: Normal extremities with adequate strength and full range of motion. LYMPHATICS: No significant lymphadenopathy is noted PSYCHIATRIC: Normal psychiatric evaluation. Limitations: no limitations Course Vital Signs 03/01/20 03/01/20 03/01/20 09:28 10:25 10:31 Temperature 97.7 F Pulse Rate 59 L 53 L 53 L Respiratory 18 18 18 Rate Blood Pressure 170/96 178/102 O2 Sat by Pulse 94 L 92 L Oximetry 03/01/20 03/01/20 03/01/20 10:40 10:41 12:19 Temperature Pulse Rate 58 L 54 L Respiratory 18 18 20 Rate Blood Pressure 154/109 O2 Sat by Pulse 92 L Oximetry Medical Decision Making - Medical Decision Making EKG shows sinus bradycardia 57 bpm TN interval is on a 74 QRS is 92 QT interval is 454 QTC is 441. Patient's EKG shows no ST segment elevation or depression. X-ray shows a left basilar infiltrate. I started the patient antibiotics. I spoke with Dr. Mina agreed to admit the patient admitted the patient wrote admitting orders. - Lab Data Result diagrams: 03/01/20 10:02 03/01/20 10:02 Lab Results 07/01/1403/01/20 03/01/20 Range/Units 10:02 10:02 10:02 WBC 6.3 (3.8-10.6) k/uL RBC 4.02 L (4.30-5.90) m/uL Hgb 12.0 L (13.0-17.5) gm/dL Hct 37.4 L (39.0-53.0) % MCV 93.0 (80.0-100.0) fL MCH 29.9 (25.0-35.0) pg MCHC 32.1 (31.0-37.0) g/dL RDW 14.4 (11.5-15.5) % Plt Count 182 (150-450) k/uL Neutrophils % 64 % Lymphocytes % 18 % Monocytes % 7 % Eosinophils % 7 % Basophils % 1 % Neutrophils # 4.0 (1.3-7.7) k/uL Lymphocytes # 1.2 (1.0-4.8) k/uL Monocytes # 0.4 (0-1.0) k/uL Eosinophils # 0.5 (0-0.7) k/uL Basophils # 0.1 (0-0.2) k/uL PT 10.6 (9.0-12.0) sec INR 1.0 (<1.2) APTT 28.4 (22.0-30.0) sec D-Dimer 1.18 H (<0.60) mg/L FEU Sodium 137 (137-145) mmol/L Potassium 4.7 (3.5-5.1) mmol/L Chloride 107 (98-107) mmol/L Carbon Dioxide 22 (22-30) mmol/L Anion Gap 8 mmol/L BUN 27 H (9-20) mg/dL Creatinine 1.26 H (0.66-1.25) mg/dL Est GFR (CKD-EPI)AfAm 61 (>60 ml/min/1.73 sqM) Est GFR (CKD-EPI)NonAf 53 (>60 ml/min/1.73 sqM) Glucose 90 (74-99) mg/dL Plasma Lactic Acid Vel (0.7-2.0) mmol/L Calcium 9.4 (8.4-10.2) mg/dL Magnesium 1.7 (1.6-2.3) mg/dL Total Bilirubin 0.4 (0.2-1.3) mg/dL AST 20 (17-59) U/L ALT 14 (4-49) U/L Alkaline Phosphatase 95 (38-126) U/L Troponin I (0.000-0.034) ng/mL NT-Pro-B Natriuret Pep pg/mL Total Protein 6.4 (6.3-8.2) g/dL Albumin 3.7 (3.5-5.0) g/dL 03/01/20 03/01/20 03/01/20 Range/Units 10:02 10:02 10:02 WBC (3.8-10.6) k/uL RBC (4.30-5.90) m/uL Hgb (13.0-17.5) gm/dL Hct (39.0-53.0) % MCV (80.0-100.0) fL MCH (25.0-35.0) pg MCHC (31.0-37.0) g/dL RDW (11.5-15.5) % Plt Count (150-450) k/uL Neutrophils % % Lymphocytes % % Monocytes % % Eosinophils % % Basophils % % Neutrophils # (1.3-7.7) k/uL Lymphocytes # (1.0-4.8) k/uL Monocytes # (0-1.0) k/uL Eosinophils # (0-0.7) k/uL Basophils # (0-0.2) k/uL PT (9.0-12.0) sec INR (<1.2) APTT (22.0-30.0) sec D-Dimer (<0.60) mg/L FEU Sodium (137-145) mmol/L Potassium (3.5-5.1) mmol/L Chloride (98-107) mmol/L Carbon Dioxide (22-30) mmol/L Anion Gap mmol/L BUN (9-20) mg/dL Creatinine (0.66-1.25) mg/dL Est GFR (CKD-EPI)AfAm (>60 ml/min/1.73 sqM) Est GFR (CKD-EPI)NonAf (>60 ml/min/1.73 sqM) Glucose (74-99) mg/dL Plasma Lactic Acid Vel 1.7 (0.7-2.0) mmol/L Calcium (8.4-10.2) mg/dL Magnesium (1.6-2.3) mg/dL Total Bilirubin (0.2-1.3) mg/dL AST (17-59) U/L ALT (4-49) U/L Alkaline Phosphatase (38-126) U/L Troponin I <0.012 (0.000-0.034) ng/mL NT-Pro-B Natriuret Pep 2100 pg/mL Total Protein (6.3-8.2) g/dL Albumin (3.5-5.0) g/dL Disposition Clinical Impression: Pneumonia, Failure of outpatient treatment Disposition: ADMITTED IP TO THIS HOSP Referrals: Roxie Melendez DO [Primary Care Provider] - 1-2 days Time of Disposition: 13:18
[2020-03-01 10:09] LABS: Basophils # (A) 0.1 k/uL (0-0.2); Basophils % (A) 1 %; Eosinophils # (A) 0.5 k/uL (0-0.7); Eosinophils % (A) 7 %; HCT 37.4 % (39.0-53.0); Lymphocytes # (A) 1.2 k/uL (1.0-4.8); Lymphocytes % (A) 18 %; MCH 29.9 pg (25.0-35.0); MCHC 32.1 g/dL (31.0-37.0); Mean Platelet Volume 7.6; Monocytes # (A) 0.4 k/uL (0-1.0); Monocytes % (A) 7 %; Neutrophils % (A) 64 %; Platelet Count 182 k/uL (150-450); RBC 4.02 m/uL (4.30-5.90); RDW 14.4 % (11.5-15.5); WBC 6.3 k/uL (3.8-10.6)
[2020-03-01 10:23] LABS: Albumin 3.7 g/dL (3.5-5.0); Calcium 9.4 mg/dL (8.4-10.2); Magnesium 1.7 mg/dL (1.6-2.3); Potassium 4.7 mmol/L (3.5-5.1); Total Bilirubin 0.4 mg/dL (0.2-1.3); Total Protein 6.4 g/dL (6.3-8.2)
--- NOTE | 2020-03-01 10:24 | XR ---
EXAMINATION TYPE: XR chest 2V DATE OF EXAM: 03/01/2020 COMPARISON: 02/26/2020 TECHNIQUE: PA and lateral views submitted. HISTORY: Difficulty breathing FINDINGS: Diffuse interstitial changes are seen with cardiomegaly and left lower subsegmental consolidation. Bi apical pleural thickening. Postsurgical change and shoulders. Heart is enlarged IMPRESSION: 1. COPD with suspected chronic interstitial lung disease and left basilar infiltrate. Correlate for s uperimposed venous congestion or pneumonitis..
[2020-03-01 10:29] LABS: Partial Thromboplastin Time 28.4 sec (22.0-30.0); Prothrombin Time 10.6 sec (9.0-12.0)
[2020-03-01 10:36] LABS: D-Dimer 1.18 mg/L FEU (<0.60)
--- NOTE | 2020-03-01 11:51 | CT ---
EXAMINATION TYPE: CT chest angio for PE DATE OF EXAM: 03/01/2020 COMPARISON: 01/22/2020 HISTORY: SOB< broken ribs, elevated d-dimer CT DLP: 716.4 mGycm Automated exposure control for dose reduction was used. CONTRAST: CT Chest for pulmonary embolism performed with without and with IV Contrast, patient injected with 10 0 ml mL of Isovue 370. FINDINGS: Exam limited by motion artifact. LUNGS: Subpleural nodule right upper lobe paraspinal region is again noted and currently measures 2.4 x 2.5 x 1.5 cm versus 2.8 x 1.6 cm. Right basilar subpleural nodule measures 1.1 cm versus 1.2 cm pr eviously axial image 53 at the costophrenic angle region. Pleural-parenchymal consolidation involving the left lower lobe is again noted trace amount of pleural fluid. No new nodules or masses seen. Increase coarsened interstitium and groundglass changes are seen great er involving the left lung. Changes of bronchiectasis noted. Peribronchial wall thickening noted. Hea rt is enlarged and there is small pericardial effusion. Changes of COPD. MEDIASTINUM: There is satisfactory enhancement of the pulmonary artery and its branches, there is no CT evidence for pulmonary embolism. There is a lymph node noted in the prevascular space measuring 1. 1 cm in short axis and similar to the prior exam.. The heart is enlarged and there is a small pericar dial effusion. Dense coronary artery calcification noted. Atherosclerotic changes of the aorta. OTHER: Hypertrophic and degenerative change of the spine. There is sclerosis of the lower margin the sternum. There are acute fractures involving the right rib cage the proximal level of the right fift h and sixth ribs. Prosthetic shoulders are noted. Tiny gallstones noted. IMPRESSION: 1. No diagnostic evidence of pulmonary embolism 2. Bilateral interstitial prominence greater on the left with peribronchial thickening and left basil ar consolidation and small effusion. Could be on the basis of bronchitis with superimposed interstiti al pneumonitis. Correlate clinically to exclude pneumonia or venous congestion. 3. There are acute fractures involving the right rib cage with no sizable pneumothorax. 4. Previous described masses involving the right lung are stable. Single pathologic lymph node is see n in the prevascular space similar to the prior exam. 5. Cardiomegaly with dense coronary artery calcification. 6. Cholelithiasis
[2020-03-01] MEDS ORDERED: PNEUMONIA PROTOCOL UTILIZED 1 EACH MISC PO PRN (13:23)
[2020-03-01] MEDS ORDERED: LEVOFLOXACIN 750MG-D5W PMX 750 MG in DEXTROSE/WATER 1 150ML.BAG IVPB STA (14:02)
[2020-03-01] MEDS ORDERED: METOPROLOL TARTRATE 25 MG TAB PO SCH (17:15)
[2020-03-01] MEDS: LISINOPRIL 2.5 MG TAB PO SCH (17:26)
[2020-03-01] MEDS ORDERED: LACTULOSE 20 GM/30 ML CUP PO PRN (17:27)
[2020-03-01] MEDS ORDERED: ACETAMINOPHEN TAB 325 MG TAB PO PRN (17:27)
[2020-03-01] MEDS ORDERED: CALCIUM CARBONATE 500 MG CHEWABLE PO PRN (17:27)
[2020-03-01] MEDS ORDERED: ONDANSETRON 4 MG/2 ML VIAL IVP PRN (17:27)
[2020-03-01] MEDS ORDERED: MAGNESIUM HYDROXIDE 2,400 MG/10 ML CUP PO PRN (17:27)
[2020-03-01] MEDS ORDERED: MELATONIN 3 MG TABLET PO PRN (17:27)
[2020-03-01] MEDS ORDERED: MAG HYDROX/AL HYDROX/SIMETH 30 ML CUP PO PRN (17:27)
[2020-03-01] MEDS ORDERED: NALOXONE 0.4 MG/ML 1 ML VIAL IV PRN (17:27)
--- NOTE | 2020-03-01 17:32 | P.HPIM ---
History of Present Illness H&P Date: 03/01/20 Chief Complaint: Cough History present complaint: This is a pleasant 79-year-old patient of Dr. Roxie Melendez. Chronic stable medical conditions include coronary artery disease, CHF with EF of 50-65%, moderate aortic stenosis with sclerosis, COPD, GERD, hyperlipidemia, hypert ension, primary [place] arthritis,(s) sleep apnea, hypothyroid. 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 treated with chemotherapy -being followed with Dr. Rutherford.. History of Grabiel fundoplication, As in the past has had small bowel obstruction with resection colostomy and reversal of the same. Also had prostate cancer treated with radiation.. Patient was recently in the hospital on February 25 with a fall. Found to have right lateral fifth and sixth rib fracture. Sent home from the ER. Patient presents with worsening cough. Sputum yellow-green in color. Tired. Appetite is okay. Some shortness of breath and wheezing. Checks x-ray showing infiltrate. Chest CTA shows-shows venous prominence versus pneumonitis. Tiny gallstones noted. Review of systems: GEN.: Tired EYES: None HEENT: None NECK: None RESPIRATORY: As above CARDIOVASCULAR: None GASTROINTESTINAL: As above GENITOURINARY: None MUSCULOSKELETAL: Pain at the fracture site LYMPHATICS: None HEMATOLOGICAL: None PSYCHIATRY: None NEUROLOGICAL: None Past medical history: Include Coronary artery disease with stent , stage IV adenocarcinoma of the lung on chemotherapy, history of Grabiel fundoplication, COPD in an ex-smoker, hypothyroidism, essential hypertension, hyperlipidemia, obstructive sleep apnea, CHF with diastolic dysfunction, moderate aortic stenosis with sclerosis. In January of this year had a GI bleed. EGD was unremarkable. Recent right fifth and sixth rib fracture Social history: . Smoked from age of 14 through 1982 alcohol occasionally. Retired. Family history: sister had rectal cancer Physical examination: VITAL SIGNS: 97.7, 59, 18, 170/96, 94% room air GENERAL: BMI 29.8, propped in bed, tired EYES: Pupils equal. Conjunctiva normal. HEENT: External appearance of nose and ears normal, oral cavity dry with NG tube. NECK: JVD not raised; masses not palpable. HEART: First and second heart sounds are normal; no edema. LUNGS: Respiratory rate increased, decreased breath sounds questionable crackles. ABDOMEN: Soft, distended, hyperactive bowel sounds, mildly tender, liver spleen not palpable, no masses palpable. PSYCH: Alert and oriented x3; mood and affect normal. NEUROLOGICAL: Cranial nerves grossly intact; no facial asymmetry, power and sensation grossly intact. LYMPHATICS: No lymph nodes palpable in the axilla and neck INVESTIGATIONS, reviewed in the clinical context: White count 6.3 hemoglobin 12 platelets 182 bun 27 creatinine 1.26 Chest x-ray film reviewed by me shows infiltrate, also pneumonitis Computed tomography scan chest-results noted including right fifth and sixth left fracture Assessment: -Pneumonia, suspect gram-negative organism, POA -Right fifth and sixth rib fracture 4 days ago was -Chronic diverticulosis, asymptomatic -Chronic Grabiel fundoplication, -Coronary artery disease with a prior history of stent -Stage IV adenocarcinoma of the lung on chemotherapy -Normocytic anemia likely secondary to malignancy and chemotherapy -COPD in an ex-smoker -Hypothyroidism -Essential hypertension -Hyperlipidemia -Obstructive sleep apnea -Chronic congestive heart failure from diastolic dysfunction EF 50-60% -Moderate aortic stenosis with sclerosis nonrheumatic -Chronic kidney disease. 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 - Plan: Past Medical History Past Medical History: Atrial Fibrillation, Asthma, Coronary Artery Disease (CAD), Cancer, COPD, GERD/Reflux, Hyperlipidemia, Hypertension, Osteoarthritis (OA), Pneumonia, Respiratory Disorder, Sleep Apnea/CPAP/BIPAP, Thyroid Disorder Additional Past Medical History / Comment(s): Lung Cancer, currently on hold of treatment, last chemo was in November/2019, to have chemo again in 2 months. diverticular disease, SBO with resection/colostomy/reversal of colostomy, p rostate cancer with radiation tx, skin cancer removed from face, hypothyroid History of Any Multi-Drug Resistant Organisms: None Reported Past Surgical History: Bowel Resection, Heart Catheterization, Heart Catheterization With Stent, Orthopedic Surgery, Tonsillectomy Additional Past Surgical History / Comment(s): 01/07/19 bronchoscopy with BAL, past bronchoscopies/bx, PCI with stent 2006, bilateral reconstructive ear surg joe and gland removed under jaw, bowel resection d/t rupture with colostomy later reversed, L cataract removal, grabiel fundoloplasty, bilateral total shoulders/knees, L knee arthroscopy x 2, EGD, colonoscopy, prostate bx, bilateral exciscion gynecomastia, skin cancer removals. Past Anesthesia/Blood Transfusion Reactions: No Reported Reaction, Motion Sickness Date of Last Stent Placement:: 2006 Past Psychological History: No Psychological Hx Reported Additional Psychological History / Comment(s): Pt resides with his spouse. He has a nebulizer. He drives. Smoking Status: Former smoker Past Alcohol Use History: Occasional Additional Past Alcohol Use History / Comment(s): SMOKED OCCASIONAL CIGAR. STARTED SMOKING AT AGE 14 ,SMOKED TILL 1982 Past Drug Use History: None Reported - Past Family History Mother Family Medical History: Cancer Additional Family Medical History / Comment(s): MULTIPLE MEYLOMA Father Family Medical History: Cancer Additional Family Medical History / Comment(s): LUNG CANCER Sister(s) Family Medical History: Cancer Additional Family Medical History / Comment(s): sister had rectal cancer. Son(s) Family Medical History: Cancer Additional Family Medical History / Comment(s): Son has hodgkins lymphoma Medications and Allergies Home Medications Medication Instructions Recorded Confirmed Type FLUoxetine HCL [PROzac] 20 mg PO HS 08/05/14 03/01/20 History Levothyroxine Sodium [Synthroid] 50 mcg PO DAILY 08/05/14 03/01/20 History Omeprazole [PriLOSEC] 40 mg PO HS 08/05/14 03/01/20 History Tamsulosin [Flomax] 0.4 mg PO HS 08/05/14 03/01/20 History Folic Acid 1 mg PO HS 02/12/18 03/01/20 History Fluticasone Nasal [place] [Flonase 1 spray EA NOSTRIL DAILY PRN 11/18/19 03/01/20 History Nasal [place]] Fluticasone/Umeclidin/Vilanter 1 puff INHALATION RT-DAILY 11/18/19 03/01/20 History [Trelegy Ellipta 100-62.5-25] Lisinopril [Zestril] 2.5 mg PO DAILY 11/18/19 03/01/20 History predniSONE 5 mg PO DAILY 11/18/19 03/01/20 History Cholecalciferol [Vitamin D3 (25 1,000 unit PO DAILY 03/01/20 03/01/20 History Mcg = 1000 Iu)] L.acidoph,Paracasei, B.lactis 1 tab PO DAILY 03/01/20 03/01/20 History [Probiotic] Metoprolol Tartrate [Lopressor] 25 mg PO BID 03/01/20 03/01/20 History Rivaroxaban [Xarelto] 20 mg PO HS 03/01/20 03/01/20 History Allergies Allergy/AdvReac Type Severity Reaction Status Date / Time No Known Allergies Allergy Verified 03/01/20 16:02 Physical Exam Vitals: Vital Signs Temp Pulse Pulse Resp BP BP BP 03/01/20 17:01 210/104 03/01/20 16:41 97.6 F 56 L 18 216/108 220/113 03/01/20 16:23 54 L 16 150/99 03/01/20 14:18 52 L 16 144/94 03/01/20 13:28 53 L 18 166/102 03/01/20 12:19 54 L 20 154/109 03/01/20 10:41 58 L 18 03/01/20 10:40 18 03/01/20 10:31 53 L 18 03/01/20 10:25 53 L 18 178/102 03/01/20 09:28 97.7 F 59 L 18 170/96 Pulse Ox 03/01/20 17:01 03/01/20 16:41 94 L 03/01/20 16:23 93 L 03/01/20 14:18 94 L 03/01/20 13:28 92 L 03/01/20 12:19 92 L 03/01/20 10:41 03/01/20 10:40 03/01/20 10:31 03/01/20 10:25 92 L 03/01/20 09:28 94 L Intake and Output 03/01/20 03/01/20 03/01/20 06:59 14:59 22:59 Other: Weight 99.79 kg 99.79 kg Results CBC & Chem 7: 03/01/20 10:02 03/01/20 10:02 Labs: Abnormal Lab Results - Last 24 Hours (Table) 03/01/20 03/01/20 03/01/20 Range/Units 10:02 10:02 10:02 RBC 4.02 L (4.30-5.90) m/uL Hgb 12.0 L (13.0-17.5) gm/dL Hct 37.4 L (39.0-53.0) % D-Dimer 1.18 H (<0.60) mg/L FEU BUN 27 H (9-20) mg/dL Creatinine 1.26 H (0.66-1.25) mg/dL
[2020-03-01] MEDS: INSULIN ASPART (NovoLOG) 100 UNIT/ML VIAL SQ SCH ×2 (17:55→21:22)
[2020-03-01] MEDS: methylPREDNISolone SOD SUCCI 40 MG/ML 1 ML VIAL IV SCH (17:58)
[2020-03-01] MEDS: amLODIPine 10 MG TAB PO SCH (17:58)
[2020-03-01] MEDS: IPRATROPIUM-ALBUTEROL 3 ML NEB INHALATION SCH ×3 (18:12→23:55)
[2020-03-01] MEDS: ALPRAZolam 0.25 MG TAB PO PRN (19:43)
[2020-03-01 19:59] LABS: Glucose,Whole Blood 143 mg/dL (75-99)
[2020-03-01] MEDS ORDERED: BUDESONIDE 1 MG/2 ML NEBU INHALATION SCH (20:00)
[2020-03-01] MEDS: cloNIDine HCL 0.2 MG TAB PO SCH (21:17)
[2020-03-01] MEDS: LORATADINE 10 MG TAB PO SCH (21:18)
[2020-03-01] MEDS: FOLIC ACID 1 MG TAB PO SCH (21:19)
[2020-03-01] MEDS: TAMSULOSIN 0.4 MG CAP.ER.24H PO SCH (21:19)
[2020-03-01] MEDS: FLUoxetine HCL 20 MG CAP PO SCH (21:20)
[2020-03-01] MEDS: RIVAROXABAN 20 MG TAB PO SCH (21:20)
[2020-03-01] MEDS: CEFEPIME 1 GM in SODIUM CHLORIDE 0.9% 50 ML IVPB SCH (21:21)
[2020-03-01] MEDS: PANTOPRAZOLE 40 MG TABLET PO SCH (21:22)
[2020-03-01] MEDS: traMADol 50 MG TAB PO PRN (21:26)
[2020-03-02] MEDS: methylPREDNISolone SOD SUCCI 40 MG/ML 1 ML VIAL IV SCH ×3 (00:03→23:56)
[2020-03-02] MEDS: cloNIDine HCL 0.2 MG TAB PO SCH ×3 (01:02→16:41)
[2020-03-02] MEDS: IPRATROPIUM-ALBUTEROL 3 ML NEB INHALATION SCH ×3 (03:36→08:33)
[2020-03-02] MEDS: LEVOTHYROXINE 50 MCG TAB PO SCH (06:21)
[2020-03-02 07:26] LABS: Glucose,Whole Blood 156 mg/dL (75-99)
[2020-03-02] MEDS ORDERED: IPRATROPIUM 0.5 MG/2.5 ML NEBU INHALATION SCH (08:00)
[2020-03-02] MEDS ORDERED: SYMBICORT 80-4.5 MCG INHALER INHALATION SCH (08:00)
[2020-03-02] MEDS: LISINOPRIL 2.5 MG TAB PO SCH (08:11)
[2020-03-02] MEDS: LORATADINE 10 MG TAB PO SCH ×2 (08:11→20:22)
[2020-03-02] MEDS: amLODIPine 10 MG TAB PO SCH (08:11)
[2020-03-02] MEDS: INSULIN ASPART (NovoLOG) 100 UNIT/ML VIAL SQ SCH ×4 (08:12→20:23)
[2020-03-02] MEDS: CEFEPIME 1 GM in SODIUM CHLORIDE 0.9% 50 ML IVPB SCH ×2 (08:12→20:17)
--- NOTE | 2020-03-02 08:50 | XR ---
EXAMINATION TYPE: XR chest 1V DATE OF EXAM: 03/02/2020 COMPARISON: Prior chest x-ray 03/01/[address] 03/01/2020 HISTORY: Pneumonia TECHNIQUE: Single frontal view of the chest is obtained. FINDINGS: The bilateral shoulder arthroplasties are present. Heart size is stable. There is basilar increased attenuation on the left, air bronchograms are present. No evident pneumothorax. Difficult t o exclude small effusion. Aorta is dense, borderline aneurysmal. Heart size is stable. Interstitium i s increased in the left lung. Patient's rib fractures are not well seen on plain film. IMPRESSION: Findings are similar to prior exam, correlate for pneumonia.
[2020-03-02] MEDS: methylPREDNISolone SOD SUCCI 125 MG/2 ML VIAL IV SCH ×2 (11:13→17:26)
[2020-03-02 11:18] LABS: Glucose,Whole Blood 150 mg/dL (75-99)
[2020-03-02] MEDS: traMADol 50 MG TAB PO PRN ×2 (11:24→17:33)
[2020-03-02] MEDS: IPRATROPIUM-ALBUTEROL 3 ML NEB INHALATION PRN ×3 (12:02→19:37)
[2020-03-02] MEDS ORDERED: PSEUDOEPHEDRINE 30 MG TAB PO SCH (12:46)
[2020-03-02] MEDS ORDERED: GABAPENTIN 300 MG CAP PO STA (13:16)
[2020-03-02] MEDS: OXYMETAZOLINE 0.05% NASL SPRAY 1 SPRAY BOTTLE NASAL SCH ×2 (13:30→22:08)
[2020-03-02] MEDS ORDERED: LEVOFLOXACIN 750MG-D5W PMX 750 MG in DEXTROSE/WATER 1 150ML.BAG IVPB SCH (16:00)
[2020-03-02] MEDS: BENZONATATE 100 MG CAP PO SCH ×2 (16:25→20:22)
[2020-03-02 17:01] LABS: Glucose,Whole Blood 221 mg/dL (75-99)
[2020-03-02] MEDS: BUDESONIDE 1 MG/2 ML NEBU INHALATION SCH (19:37)
[2020-03-02] MEDS: FORMOTEROL FUMARATE 20 MCG/2 ML NEBU INHALATION SCH (19:37)
--- NOTE | 2020-03-02 19:58 | CONS ---
CONSULTATION PULMONARY/CRITICAL CARE CONSULTATION: DATE OF SERVICE: 03/02/2020 REASON FOR CONSULTATION: Shortness of breath. This is an 79-year-old male who presented to the emergency department on March 01. He apparently came in complaining of shortness of breath. He apparently had fallen earlier in the week and was diagnosed as having 3 rib fractures as well as possible pneumonia. He was sent home with Tylenol and codeine as well as with antibiotics. He apparently complained of a tickle in his throat and a cough which was aggravating him. Combined with the fact that he was becoming more short of breath, this caused him to come in to be evaluated. He states that the cough and shortness of breath seem to be worse at nighttime. Anyway, he does see Dr. Sheppard, my partner, for his underlying chronic lung disease. He does not use oxygen at home. He does use a combination of long-acting beta agonist/inhaled corticosteroid combination as well as some short- acting beta agonists. He also takes prednisone 5 mg a day. Currently he is feeling about the same. HOME MEDICATIONS: His home medications are reviewed. They include Prozac, Synthroid, Prilosec, Flomax, folic acid, Flonase nasal spray, Advair generic, lisinopril, prednisone, albuterol, metoprolol, Xarelto and Z-Avtar. ALLERGIES: DENIED. PAST MEDICAL HISTORY: Past medical history includes atrial fibrillation, COPD/asthma, CAD, heart failure, GERD, hyperlipidemia, hypertension, DJD, pneumonia, sleep apnea syndrome, hypothyroidism and lung cancer. The lung cancer apparently involves the pleural space or the pleural lining on the left side. Apparently he had an effusion that was malignant and it was drained. It apparently showed small-cell lung cancer. He did take chemotherapy for a prolonged period of time and apparently stopped chemotherapy or completed chemotherapy 2 months ago. Other medical problems include small bowel obstruction with previous resection and colostomy with reversal, prostate cancer, status post radiation treatment, skin cancer, status post excision, and previous myocardial infarction. SURGICAL HISTORY: His surgical history includes bowel resection, heart catheterization, stent placement, tonsillectomy, bronchoscopy with BAL, reconstructive ear surgery, colostomy reversal, left cataract removal, Grabiel fundoplication, bilateral total shoulder and knee surgery, EGD, colonoscopy, prostate biopsy, excision of gynecomastia and skin cancer removal. SOCIAL HISTORY: Positive for previous heavy tobacco use. He does not smoke currently. He does drink alcohol occasionally. Denies any illicit drug use. FAMILY HISTORY: Positive for mother with multiple myeloma, father with lung cancer, a sister with rectal cancer and a son with Hodgkin's lymphoma. REVIEW OF SYSTEMS: CONSTITUTIONAL: Negative. NEUROLOGIC: Negative. HEENT: Negative. CARDIOVASCULAR: Negative. PULMONARY: Shortness of breath, chest congestion, cough, chest tightness, phlegm production. GI: Negative. : Negative. RHEUMATOLOGIC: Negative. IMMUNOLOGIC: Negative. ENDOCRINOLOGIC: Negative. DERMATOLOGIC: Negative. PHYSICAL EXAMINATION: VITAL SIGNS: Current vital signs are reviewed. Temperature 97.7, heart rate 70, respiratory rate 16, blood pressure 134/84, mean 100, and two-liter saturation of 93%. GENERAL APPEARANCE: Appears in no acute distress. No respiratory distress. No audible wheezing, use of accessory muscles or conversational dyspnea. HEENT: Examination is grossly unremarkable. Mucous membranes are moist. Nasal oxygen noted. NECK: Supple. Full range of motion. No adenopathy. Neck veins are flat. CARDIOVASCULAR: Examination reveals regular rhythm and rate. Heart rate 70. S1, S2 normal. No S3, S4 or murmur. LUNGS: Lungs reveal some expiratory and inspiratory coarse rhonchi and wheezes. Breath sounds are diminished. His breath sounds are rather coarse. No crackles. ABDOMEN: Soft. Bowel sounds are heard. EXTREMITIES: Intact. No cyanosis, clubbing or edema. SKIN: Without rash. NEUROLOGIC: Neurologic examination is brief but nonfocal. LABS: Reviewed. White count 6.3, hemoglobin 12, hematocrit 37.4, platelet count normal. PT, INR, PTT all normal. D-dimer 1.18. Sodium, potassium, chloride, CO2 all normal. Anion gap is 8. BUN and creatinine were 27 and 1.26. N-terminal proBNP is 2100. Troponin was negative. Microbiology is currently negative. Chest x-ray shows changes of COPD and some chronic interstitial changes and a possible left basilar infiltrate. CT angiogram was negative for PE. It did show bilateral interstitial prominence, greater on the left, with peribronchial thickening and left basilar consolidation and small effusion. Could be consistent with either venous congestion or interstitial pneumonitis. There were some right rib cage fractures without a pneumothorax, and previously described masses involving the right lung are stable. Medications are reviewed. The patient was placed on Pulmicort, formoterol, DuoNeb, Solu-Medrol, and he is currently on cefepime. Other medications are reviewed. ASSESSMENT: 1. Chronic obstructive pulmonary disease exacerbation complicated by purulent tracheobronchitis and possible bronchopneumonia, left lower lobe. 2. History of lung cancer, small cell, status post chemotherapy. 3. History of atrial fibrillation. 4. History of coronary artery disease with previous myocardial infarction and previous stent placement. 5. Prostate cancer. 6. History of skin cancer. 7. Congestive heart failure. 8. Gastroesophageal reflux disease. 9. Hyperlipidemia. 10.History of hypertension. 11.History of pneumonia. 12.History of sleep apnea syndrome. 13.Hypothyroidism. 14.Previous small-bowel obstruction with resection, colostomy and colostomy reversal. 15.Status post Grabiel fundoplication. 16.Multiple other medical problems and comorbidities. PLAN: Currently the patient looks relatively stable. We added DuoNeb q.i.d. p.r.n., Pulmicort 1 mg mixed with Perforomist twice a day, and Solu-Medrol 60 mg every six hours. He is already on cefepime. Additional recommendations and suggestions are forthcoming. Prognosis is guarded. We will continue to follow. He does have a history of lung cancer, small-cell type, involving the left pleural space. Additional recommendations and suggestions are forthcoming. MMODL / IJN: [id number] / MTDD
[2020-03-02 20:03] LABS: Glucose,Whole Blood 288 mg/dL (75-99)
[2020-03-02] MEDS: PANTOPRAZOLE 40 MG TABLET PO SCH (20:22)
[2020-03-02] MEDS: FLUoxetine HCL 20 MG CAP PO SCH (20:22)
[2020-03-02] MEDS: FOLIC ACID 1 MG TAB PO SCH (20:22)
[2020-03-02] MEDS: TAMSULOSIN 0.4 MG CAP.ER.24H PO SCH (20:22)
[2020-03-02] MEDS: RIVAROXABAN 20 MG TAB PO SCH (20:28)
--- NOTE | 2020-03-02 21:29 | P.CONS ---
History of Present Illness - Reason for Consult Consult date: 03/02/20 Lung Cancer Requesting physician: Tres Mina - Chief Complaint Pain - History of Present Illness Mr. Lu is a very pleasant male patient well known to us when he originally presented with progressive exertional dyspnea for a few months had a chest x-ray followed by CAT scan in September 2015 this revealed worsening of the left pleural effusion compared to prior scans which was originally found in 2013. On his scan 2015 there was also a right upper lobe nodule that was slightly increased with likely associated enlarged mediastinal lymph nodes on 12/03/2015 he underwent a diagnostic thoracentesis cytology showed positive for adenocarcinoma the lung on 12/12/2015 he had a PET scan which revealed suspicious uptake in that right upper lobe 2.2 paraspinal mass left pleural effusion otherwise negative on 12/16/2015 MRI of the brain was negative locular profile cannot be performed due to the cytology from the pleural fluid was not concentrated in the patient did not want a week for further molecular profiling or a repeat biopsy therefore we decided to initiate treatment at that time with carboplatin and Alimta and Avastin this was started on 12/30/2015 he completed 4 cycles which she tolerated well his repeat diagnostic imaging revealed stable disease possible slight progression in left pleural effusion he was initiated on maintenance Alimta therefore and April 2016 his follow-up restaging exams in June 2016 showed no evidence of progression he continued to do well until July 2018 which his computed tomography scan of the chest revealed a mild stable left pleural effusion with some inflammatory changes in his left lower lung however he also complained at that time of worsening cough referred to Dr. Barrera our underwent a bronchoscopy on 10/23/2018 and a transbronchial biopsy was taken and the pathology revealed poorly differentiated adenocarcinoma at this time his molecular testing with next GEN sequencing was negative for any targeted mutations including but not limited to ALK and ROS unfortunately at that time PDL 1 could not be obtained. In October 2018 he was started on Opdivo (Immune Therapy) November 28 he continued to have worsening shortness of breath CAT scan of the chest revealed increasing size of right upper lobe nodule and increasing left lower lobe consolidation he was started on prednisone and symptoms improved he resumed Optivar on 12/05/2018 continued with 3 more treatments 12/26/2018 he was referred to the emergency department for sudden chills dyspnea and acute hypoxic respiratory failure the CT of the scan at that time revealed worsening bilateral lower lung infiltrate and consolidation treated with antibiotic steroids discharged on 12/31/2018 on 01/07/2019 he had a bronchoscopy biopsy which was negative he continues to recover from his emergency visit in early December he is now off prednisone and completed antibiotics as of the first week in January although his nonproductive cough shortness of breath overall fatigue and diffuse joint pain has appeared to become progressively worse. I've Divo was therefore stopped and on 01/25/2019 he began his first cycle of Carbo and Alimta. On 02/04/2019 he was admitted to [facility] with complaints of black tarry stools and a drop in his hemoglobin therefore he was referred to emergency for further workup and evaluation. Admitted with GI Bleed with known history of prior bowel surgeries including colostomy and small bowel surgery as well as hiatal hernia surgery this was done at [facility]. On 03/11/2019,repeat CT scan of chest/abdomen/pelvis revealed relatively stable disease. He completed 4 cycles of carboplatin/alimta on 03/29/[address] scan on 06/05/2019 revealed improvement in his disease. Repeat CT scan of chest on 09/04/2019 revealed stable disease. He continues with alimta every 3 weeks He feels tired,has his chronic exertional dyspnea,sinus drainage and fatigue improved significantly with prednisone,currently on 5 mg/day,appetite is fine,however,he felt more dizzy and had double vision over the last week. An MRI was ordered with these complaints and revealed a punctate 4mm acute lacunar infarct of the right posterior frontal lobe. No metastatic disease was identified. He did have a repeat MRI of the brain 11/17 which did not show evidence of metastatic disease, although revealing undulation of the left optic nerve and slight prominence of optic nerve perineural fluid which can be seen with increased intracranal pressure. Opthomology exam was recommended On 11/18/2019,he developed diplopia,he could not open left eye and significant dizzyness. 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 On 12/16/2019,LP and cytology on CSF was negative. On 01/22/[address] scan of chest/abdomen/pelvis revealed no evidence of progression. He now presents 03/01/20 to [facility] emergency Department after having a fall earlier in the week and was diagnosed with 3 rib fractures as well as pneumonia. Patient was sent home on Tylenol with Codeine and antibiotics. Patient states it is getting more more difficult to breathing especially at night. The pain is worsening, not relieved as well as it was from T3 Review of Systems A 14 point review of systems assessed and completed and all negative except HPI Past Medical History Past Medical History: Atrial Fibrillation, Asthma, Coronary Artery Disease (CAD), Cancer, COPD, GERD/Reflux, Hyperlipidemia, Hypertension, Osteoarthritis (OA), Pneumonia, Respiratory Disorder, Sleep Apnea/CPAP/BIPAP, Thyroid Disorder Additional Past Medical History / Comment(s): Lung Cancer, currently on hold of treatment, last chemo was in November/2019, to have chemo again in 2 months. diverticular disease, SBO with resection/colostomy/reversal of colostomy, prostate cancer with radiation tx, skin cancer removed from face, hypothyroid History of Any Multi-Drug Resistant Organisms: None Reported Past Surgical History: Bowel Resection, Heart Catheterization, Heart Catheterization With Stent, Orthopedic Surgery, Tonsillectomy Additional Past Surgical History / Comment(s): 01/07/19 bronchoscopy with BAL, past bronchoscopies/bx, PCI with stent 2006, bilateral reconstructive ear surgery and gland removed under jaw, bowel resection d/t rupture with colostomy later reversed, L cataract removal, demetra fundoloplasty, bilateral total shoulders/knees, L knee arthroscopy x 2, EGD, colonoscopy, prostate bx, bilateral exciscion gynecomastia, skin cancer removals. Past Anesthesia/Blood Transfusion Reactions: No Reported Reaction, Motion Sickness Date of Last Stent Placement:: 2006 Past Psychological History: No Psychological Hx Reported Additional Psychological History / Comment(s): Pt resides with his spouse. He has a nebulizer. He drives. Smoking Status: Former smoker Past Alcohol Use History: Occasional Additional Past Alcohol Use History / Comment(s): SMOKED OCCASIONAL CIGAR. STARTED SMOKING AT AGE 14 ,SMOKED TILL 1982 Past Drug Use History: None Reported - Past Family History Mother Family Medical History: Cancer Additional Family Medical History / Comment(s): MULTIPLE MEYLOMA Father Family Medical History: Cancer Additional Family Medical History / Comment(s): LUNG CANCER Sister(s) Family Medical History: Cancer Additional Family Medical History / Comment(s): sister had rectal cancer. Son(s) Family Medical History: Cancer Additional Family Medical History / Comment(s): Son has hodgkins lymphoma Medications and Allergies Home Medications Medication Instructions Recorded Confirmed Type FLUoxetine HCL [PROzac] 20 mg PO HS 08/05/14 03/01/20 History Levothyroxine Sodium [Synthroid] 50 mcg PO DAILY 08/05/14 03/01/20 History Omeprazole [PriLOSEC] 40 mg PO HS 08/05/14 03/01/20 History Tamsulosin [Flomax] 0.4 mg PO HS 08/05/14 03/01/20 History Folic Acid 1 mg PO HS 02/12/18 03/01/20 History Fluticasone Nasal [place] [Flonase 1 spray EA NOSTRIL DAILY PRN 11/18/19 03/01/20 History Nasal [place]] Fluticasone/Umeclidin/Vilanter 1 puff INHALATION RT-DAILY 11/18/19 03/01/20 History [Trelegy Ellipta 100-62.5-25] Lisinopril [Zestril] 2.5 mg PO DAILY 11/18/19 03/01/20 History predniSONE 5 mg PO DAILY 11/18/19 03/01/20 History Cholecalciferol [Vitamin D3 (25 1,000 unit PO DAILY 03/01/20 03/01/20 History Mcg = 1000 Iu)] L.acidoph,Paracasei, B.lactis 1 tab PO DAILY 03/01/20 03/01/20 History [Probiotic] Metoprolol Tartrate [Lopressor] 25 mg PO BID 03/01/20 03/01/20 History Rivaroxaban [Xarelto] 20 mg PO HS 03/01/20 03/01/20 History Allergies Allergy/AdvReac Type Severity Reaction Status Date / Time No Known Allergies Allergy Verified 03/01/20 16:02 Physical Exam Vitals: Vital Signs Temp Pulse Pulse Resp BP BP BP 03/02/20 12:17 74 03/02/20 12:03 70 16 03/02/20 10:16 97.7 F 77 134/84 03/02/20 08:50 74 03/02/20 08:34 78 18 03/02/20 07:00 81 17 170/92 03/02/20 03:55 60 03/02/20 03:47 60 03/02/20 00:39 98.2 F 59 L 16 156/84 03/01/20 20:00 97.4 F L 56 L 20 210/107 03/01/20 19:53 59 L 03/01/20 19:48 56 L 03/01/20 17:01 210/104 03/01/20 16:41 97.6 F 56 L 18 216/108 220/113 03/01/20 16:23 54 L 16 150/99 Pulse Ox 03/02/20 12:17 03/02/20 12:03 03/02/20 10:16 03/02/20 08:50 03/02/20 08:34 93 L 03/02/20 07:00 96 03/02/20 03:55 03/02/20 03:47 03/02/20 00:39 94 L 03/01/20 20:00 94 L 03/01/20 19:53 03/01/20 19:48 03/01/20 17:01 03/01/20 16:41 94 L 03/01/20 16:23 93 L Intake and Output 03/01/20 03/02/20 03/02/20 22:59 06:59 14:59 Intake Total 230 540 Balance 230 540 Intake: Intake, IV Titration 50 Amount Cefepime 1 gm In Sodium 50 Chloride 0.9% 50 ml @ 100 mls/hr IVPB Q12HR [facility] Rx #:[id number] Oral 180 540 Other: Voiding Method Toilet Toilet # Voids 1 1 2 Weight 99.79 kg General: Awake and Alert, No acute Distress HEENT: Normal Cephalic, Atraumatic. Non-icteric Sclera Left eye movement limited when looking up Mouth: No Thrush, Dry Mucus Membranes Neck: supple, trachea midline. Lymph Nodes: No cervical, supraclavicular, or Axillary Lymphadenopathy on palpation Heart: irregular, irregular Lungs: Increased respiratory Effort Noted, Bilateral bibasilar diminishedl Abdomen: Soft, Non-distended, Non-tender Extremities: Strength is equal bilateral upper and lower, No edema noted Skin: No rashes or lesions noted Neurological: No sensory or motor deficits. Psychiatric: Cooperative, appropriate mood & affect, normal judgment Results CBC & Chem 7: 03/01/20 10:02 03/01/20 10:02 Labs: Abnormal Lab Results - Last 24 Hours (Table) 03/01/20 03/02/20 03/02/20 Range/Units 19:56 07:24 11:16 POC Glucose (mg/dL) 143 H 156 H 150 H (75-99) mg/dL Microbiology - Last 24 Hours (Table) 03/01/20 10:02 Blood Culture - Preliminary Blood No Growth after 24 hours Chest x-ray: report reviewed CT scan - chest: report reviewed Assessment and Plan Plan: Assessment and Recommendations: Non-Small Cell Lung Cancer: - Details and History reviewed in HPI - Recently Treated with Immune Therapy (opdivo), Stopped 12/19/18 - Status Post treatment with carboplatin and Almta x4 - Maintenance Almta held due to simulataneous neurological effects, unknown cause Recent Fall, Acute Rib Fractures, Pain: - COntinue pain management and supportive care Acute Renal Insufficiency: Stable -monitor Increased Shortness of breath: - Pulmonary following - pneumonia versus interstitial pneumonia Continue supportive care at this time and resolution of acute symptoms. Restaging after completion of abx Physician Attestation: I have performed the full physical examination and reviewed the full history of this patient, as well as pertinent findings. I have created the compled impression and recommendations. I agree with the above dictation by ROB Domingo. This dictation has been written as a scribe.
[2020-03-02] MEDS ORDERED: cloNIDine HCL 0.1 MG TAB PO SCH (22:00)
--- NOTE | 2020-03-02 23:12 | P.PN ---
Progress Note - Text Progress Note Date: 03/02/20 Chief Complaint: Cough History present complaint: This is a pleasant 79-year-old patient of Dr. Roxie Melendez. Chronic stable medical conditions include coronary artery disease, CHF with EF of 50-65%, moderate aortic stenosis with sclerosis, COPD, GERD, hyperlipidemia, h ypertension, primary [place] arthritis,(s) sleep apnea, hypothyroid. 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 treated with chemotherapy -being followed with Dr. Rutherford.. History of Grabiel fundoplication, As in the past has had small bowel obstruction with resection colostomy and reversal of the same. Also had prostate cancer treated with radiation.. Patient was recently in the hospital on February 25 with a fall. Found to have right lateral fifth and sixth rib fracture. Sent home from the ER. Patient presents with worsening cough. Sputum yellow-green in color. Tired. Appetite is okay. Some shortness of breath and wheezing. Checks x-ray showing infiltrate. Chest CTA shows-shows venous prominence versus pneumonitis. Tiny gallstones noted. Admitted with pneumonia-started on ceftriaxone. Today-patient feels a bit better. Trouble with his chronic sinus symptoms. Started on Claritin last night. Some cough. Did tolerate some diet. Cough is present. Review of systems: Was done for constitutional, cardiovascular, GI, pulmonary. relevant finding as above Active Medications Acetaminophen (Tylenol Tab) 650 mg PO Q6HR PRN PRN Reason: Mild Pain or Fever > 100.5 Al Hydroxide/Mg Hydroxide (Maalox) 15 ml PO Q6HR PRN PRN Reason: Indigestion Albuterol/Ipratropium (Duoneb 0.5 Mg-3 Mg/3 Ml Soln) 3 ml INHALATION RT-Q2H PRN PRN Reason: Shortness Of Breath Or Wheezing Last Admin: 03/02/20 19:37 Dose: 3 ml Documented by: Alprazolam (Xanax) 0.25 mg PO Q6HR PRN PRN Reason: Anxiety Last Admin: 03/01/20 19:43 Dose: 0.25 mg Documented by: Amlodipine Besylate (Norvasc) 10 mg PO DAILY [facility] Last Admin: 03/02/20 08:11 Dose: 10 mg Documented by: Benzonatate (Tessalon Perles) 100 mg PO TID [facility] Last Admin: 03/02/20 20:22 Dose: 100 mg Documented by: Budesonide (Pulmicort) 1 mg INHALATION RT-BID [facility] Last Admin: 03/02/20 19:37 Dose: 1 mg Documented by: Calcium Carbonate/Glycine (Tums) 1,000 mg PO Q4HR PRN PRN Reason: Dyspepsia Clonidine (Catapres) 0.1 mg PO TID [facility] Last Admin: 03/02/20 20:23 Dose: Not Given Documented by: Fluoxetine HCl (Prozac) 20 mg PO [facility] Last Admin: 03/02/20 20:22 Dose: 20 mg Documented by: Folic Acid (Folic Acid) 1 mg PO HS [facility] Last Admin: 03/02/20 20:22 Dose: 1 mg Documented by: Formoterol Fumarate (Perforomist) 20 mcg INHALATION RT-BID [facility] Last Admin: 03/02/20 19:37 Dose: 20 mcg Documented by: Cefepime HCl 1 gm/ Sodium (Chloride) 50 mls @ 100 mls/hr IVPB Q12HR [facility] Last Admin: 03/02/20 20:17 Dose: 100 mls/hr Documented by: Insulin Aspart (Novolog) 0 unit SQ [facility]; Protocol Last Admin: 03/02/20 20:23 Dose: 5 unit Documented by: Lactulose (Cephulac) 20 gm PO DAILY PRN PRN Reason: Constipation Levothyroxine Sodium (Synthroid) 50 mcg PO DAILY@0630 [facility] Last Admin: 03/02/20 06:21 Dose: 50 mcg Documented by: Lisinopril (Zestril) 2.5 mg PO DAILY [facility] Last Admin: 03/02/20 08:11 Dose: 2.5 mg Documented by: Loratadine (Claritin) 5 mg PO Q12HR [facility] Last Admin: 03/02/20 20:22 Dose: 5 mg Documented by: Magnesium Hydroxide (Milk Of Magnesia) 2,400 mg PO DAILY PRN PRN Reason: Constipation Melatonin (Melatonin) 3 mg PO HS PRN PRN Reason: Insomnia Methylprednisolone Sodium Succinate (Solu-Medrol) 60 mg IV Q6HR [facility] Last Admin: 03/02/20 17:26 Dose: 60 mg Documented by: Miscellaneous Information (Pneumonia Protocol Utilized) 1 each PO ONCE PRN PRN Reason: Per Protocol Naloxone HCl (Narcan) 0.2 mg IV Q2M PRN PRN Reason: Opioid Reversal Ondansetron HCl (Zofran) 4 mg IVP Q8HR PRN PRN Reason: Nausea And Vomiting Oxymetazoline HCl (Afrin 0.05% Nasal [place]) 3 spray NASAL BID [facility] Last Admin: 03/02/20 22:08 Dose: Not Given Documented by: Pantoprazole Sodium (Protonix) 40 mg PO [facility] Last Admin: 03/02/20 20:22 Dose: 40 mg Documented by: Rivaroxaban (Xarelto) 20 mg PO [facility] Last Admin: 03/02/20 20:28 Dose: 20 mg Documented by: Tamsulosin HCl (Flomax) 0.4 mg PO [facility] Last Admin: 03/02/20 20:22 Dose: 0.4 mg Documented by: Tramadol HCl (Ultram) 50 mg PO QID PRN PRN Reason: Breakthrough Pain Last Admin: 03/02/20 17:33 Dose: 50 mg Documented by: Physical examination: VITAL SIGNS: 96.5, 80, 17, 103/65, 97% room air GENERAL: BMI 29.8, sitting up in a chair, looks somewhat better. EYES: Pupils equal. Conjunctiva normal. HEENT: External appearance of nose and ears normal, oral cavity dry with NG tube. NECK: JVD not raised; masses not palpable. HEART: First and second heart sounds are normal; no edema. LUNGS: Respiratory rate increased, decreased breath sounds, some wheezing ABDOMEN: Soft, distended, hyperactive bowel sounds, mildly tender, liver spleen not palpable, no masses palpable. PSYCH: Alert and oriented x3; mood and affect normal. INVESTIGATIONS, reviewed in the clinical context: Pro calcitonin 0.04 Previous testing White count 6.3 hemoglobin 12 platelets 182 bun 27 creatinine 1.26 Chest x-ray film reviewed by me shows infiltrate, also pneumonitis Computed tomography scan chest-results noted including right fifth and sixth left fracture Assessment: -Pneumonia, suspect gram-negative organism, POA -Right fifth and sixth rib fracture 4 days ago was -Chronic diverticulosis, asymptomatic -Chronic Grabiel fundoplication, -Coronary artery disease with a prior history of stent -Stage IV adenocarcinoma of the lung on chemotherapy -Normocytic anemia likely secondary to malignancy and chemotherapy -Acute COPD exacerbation in an [id number] diagnosis -Hypothyroidism -Essential hypertension -Hyperlipidemia -Obstructive sleep apnea -Chronic congestive heart failure from diastolic dysfunction EF 50-60% -Moderate aortic stenosis with sclerosis nonrheumatic -Chronic kidney disease. 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 - Plan: IV steroids added. Continue with cefepime. Afrin nasal spray is being added. Other medications to continue. Discussed with the patient. Check labs in the morning. Patient already on inhaled steroids.
[2020-03-03] MEDS: IPRATROPIUM-ALBUTEROL 3 ML NEB INHALATION PRN ×5 (03:28→20:29)
[2020-03-03] MEDS: LEVOTHYROXINE 50 MCG TAB PO SCH (05:55)
[2020-03-03 06:53] LABS: Glucose,Whole Blood 153 mg/dL (75-99)
[2020-03-03 07:53] LABS: Basophils % (A) 0 %; Eosinophils % (A) 0 %; HCT 38.3 % (39.0-53.0); HGB 11.9 gm/dL (13.0-17.5); Lymphocytes # (A) 0.5 k/uL (1.0-4.8); Lymphocytes % (A) 5 %; MCH 29.1 pg (25.0-35.0); MCV 93.9 fL (80.0-100.0); Mean Platelet Volume 7.5; Monocytes # (A) 0.4 k/uL (0-1.0); Monocytes % (A) 4 %; Neutrophils # (A) 8.9 k/uL (1.3-7.7); Neutrophils % (A) 89 %; Platelet Count 209 k/uL (150-450); RBC 4.08 m/uL (4.30-5.90); RDW 14.5 % (11.5-15.5)
[2020-03-03 08:11] LABS: Calcium 10.6 mg/dL (8.4-10.2); Potassium 4.5 mmol/L (3.5-5.1); Total Bilirubin 0.4 mg/dL (0.2-1.3); Total Protein 6.8 g/dL (6.3-8.2)
[2020-03-03] MEDS: INSULIN ASPART (NovoLOG) 100 UNIT/ML VIAL SQ SCH ×4 (08:22→21:51)
[2020-03-03] MEDS: LORATADINE 10 MG TAB PO SCH ×2 (08:23→21:51)
[2020-03-03] MEDS: methylPREDNISolone SOD SUCCI 40 MG/ML 1 ML VIAL IV SCH ×2 (08:23→15:05)
[2020-03-03] MEDS: METOPROLOL TARTRATE 25 MG TAB PO SCH ×2 (08:24→21:50)
[2020-03-03] MEDS: amLODIPine 10 MG TAB PO SCH (08:24)
[2020-03-03] MEDS: LISINOPRIL-HCTZ 10-12.5 MG 1 EACH TAB PO SCH (08:24)
[2020-03-03] MEDS: BENZONATATE 100 MG CAP PO SCH ×4 (08:24→21:56)
[2020-03-03] MEDS: guaiFENesin 600 MG TABLET.ER PO SCH ×2 (08:24→21:50)
[2020-03-03] MEDS: CEFEPIME 1 GM in SODIUM CHLORIDE 0.9% 50 ML IVPB SCH ×3 (08:27→21:48)
[2020-03-03] MEDS: OXYMETAZOLINE 0.05% NASL SPRAY 1 SPRAY BOTTLE NASAL SCH ×2 (08:30→21:52)
[2020-03-03] MEDS ORDERED: PROMETHAZINE HCL 6.25 MG/5 ML CUP PO PRN (08:44)
[2020-03-03] MEDS: BUDESONIDE 1 MG/2 ML NEBU INHALATION SCH ×2 (08:53→20:29)
[2020-03-03] MEDS: FORMOTEROL FUMARATE 20 MCG/2 ML NEBU INHALATION SCH ×2 (08:53→20:29)
--- NOTE | 2020-03-03 10:28 | P.PN ---
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 Room air pulse ox 95%, hemodynamically stable, afebrile. Pro-calcitonin level came back negative at 0.04, proBNP is elevated at 2100. Troponin was less than 0.012. Today's labs have been reviewed, white blood cell count is 10, 11 is 11.9, sodium is 136, potassium is 4.5, CO2 is 21, B1 is 32 creatinine is 1.38. Patient is on Pulmicort and Perforomist, DuoNeb breathing treatments, yesterday chest x-ray showed increased attenuation at the left base with air bronchograms, possibility of bronchopneumonia. No fever or chills. Objective - Vital Signs Vital signs: Vital Signs Temp 96.5 F L 03/03/20 07:00 Pulse 84 03/03/20 09:20 Resp 18 03/03/20 07:00 BP 159/81 03/03/20 07:00 Pulse Ox 95 03/03/20 07:00 Intake & Output 03/02/20 03/03/20 03/03/20 18:59 06:59 18:59 Intake Total 540 120 Balance 540 120 Intake: Oral 540 120 Other: Voiding Method Toilet Toilet # Voids 2 1 - Exam GENERAL EXAM: Alert, very pleasant, 79-year-old white male, on room air, with a pulse ox of 95%, comfortable in no apparent distress. HEAD: Normocephalic/atraumatic. EYES: Normal reaction of pupils, equal size. Conjunctiva pink, sclera white. NOSE: Clear with pink turbinates. THROAT: No erythema or exudates. NECK: No masses, no JVD, no thyroid enlargement, no adenopathy. CHEST: No chest wall deformity. Symmetrical expansion. LUNGS: Equal air entry with no crackles, some scattered wheezes CVS: Regular rate and rhythm, normal S1 and S2, no gallops, no murmurs, no rubs ABDOMEN: Soft, nontender. No hepatosplenomegaly, normal bowel sounds, no guarding or rigidity. EXTREMITIES: No clubbing, no edema, no cyanosis, 2+ pulses and upper and lower extremities. MUSCULOSKELETAL: Muscle strength and tone normal. SPINE: No scoliosis or deformity SKIN: No rashes CENTRAL NERVOUS SYSTEM: Alert and oriented -3. No focal deficits, tone is normal in all 4 extremities. PSYCHIATRIC: Alert and oriented -3. Appropriate affect. Intact judgment and insight. - Labs CBC & Chem 7: 03/03/20 07:17 03/03/20 07:17 Labs: Abnormal Lab Results - Last 24 Hours (Table) 03/02/20 03/02/20 03/02/20 Range/Units 11:16 17:00 20:01 RBC (4.30-5.90) m/uL Hgb (13.0-17.5) gm/dL Hct (39.0-53.0) % Neutrophils # (1.3-7.7) k/uL Lymphocytes # (1.0-4.8) k/uL Sodium (137-145) mmol/L Carbon Dioxide (22-30) mmol/L BUN (9-20) mg/dL Creatinine (0.66-1.25) mg/dL Glucose (74-99) mg/dL POC Glucose (mg/dL) 150 H 221 H 288 H (75-99) mg/dL Calcium (8.4-10.2) mg/dL 03/03/20 03/03/20 03/03/20 Range/Units 06:52 07:17 07:17 RBC 4.08 L (4.30-5.90) m/uL Hgb 11.9 L (13.0-17.5) gm/dL Hct 38.3 L (39.0-53.0) % Neutrophils # 8.9 H (1.3-7.7) k/uL Lymphocytes # 0.5 L (1.0-4.8) k/uL Sodium 136 L (137-145) mmol/L Carbon Dioxide 21 L (22-30) mmol/L BUN 32 H (9-20) mg/dL Creatinine 1.38 H (0.66-1.25) mg/dL Glucose 150 H (74-99) mg/dL POC Glucose (mg/dL) 153 H (75-99) mg/dL Calcium 10.6 H (8.4-10.2) mg/dL Microbiology - Last 24 Hours (Table) 03/01/20 10:02 Blood Culture - Preliminary Blood No Growth after 24 hours Assessment and Plan Plan: Assessment: #1. Acute exacerbation of COPD complicated by purulent tracheobronchitis and possible bronchopneumonia at the left lower lobe. CTA chest showed bilateral interstitial prominence greater on the left with peribronchial thickening and left basilar consolidation and small effusion could be on the basis of bronchitis with superimposed interstitial pneumonitis. Pro-calcitonin level was negative at 0.04 suggesting absence of bacterial pneumonia #2. History of lung cancer, small cell, status post chemotherapy #3. History of atrial fibrillation #4. History of CAD with previous myocardial infarction and previous stent placement #5. Prostate cancer #6. History of skin cancer #7. Chronic congestive heart failure #8. GERD/reflux #9. Hyperlipidemia #10. History of hypertension #11. History of pneumonia #12. History of sleep apnea syndrome #13. Hypothyroidism #14. Previous small bowel obstruction with resection, colostomy and colostomy reversal #15. Status post Grabiel fundoplication #16. Multiple other medical problems and comorbidities Plan: Continue current antibiotics, left lower lobe changes could be related to interstitial pneumonitis, low ProCalcitonin level suggesting absence of bacterial pneumonia. Patient continues on cefepime, he has been afebrile, continue IV steroids, we'll increase the Tessalon Perles to 200 mg 3 times a day, we'll add Phenergan cough syrup. 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 We'll continue to follow I performed a history & physical examination of the patient and discussed their management with my nurse practitioner, Ladan Awad. I reviewed the nurse practitioner's note and agree with the documented findings and plan of care. Lung sounds are positive for scattered wheezes. The findings and the impression was discussed with the patient. I attest to the documentation by the nurse practitioner. Time with Patient: Less than 30
[2020-03-03 11:24] LABS: Glucose,Whole Blood 152 mg/dL (75-99)
[2020-03-03 16:39] LABS: Glucose,Whole Blood 138 mg/dL (75-99)
--- NOTE | 2020-03-03 19:23 | P.PN ---
Progress Note - Text Progress Note Date: 03/03/20 Chief Complaint: Cough History present complaint: This is a pleasant 79-year-old patient of Dr. Roxie Melendez. Chronic stable medical conditions include coronary artery disease, CHF with EF of 50-65%, moderate aortic stenosis with sclerosis, COPD, GERD, hyperlipidemia, h ypertension, primary Bairon arthritis,(s) sleep apnea, hypothyroid. 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 treated with chemotherapy -being followed with Dr. Rutherford.. History of Grabiel fundoplication, As in the past has had small bowel obstruction with resection colostomy and reversal of the same. Also had prostate cancer treated with radiation.. Patient was recently in the hospital on February 25 with a fall. Found to have right lateral fifth and sixth rib fracture. Sent home from the ER. Patient presents with worsening cough. Sputum yellow-green in color. Tired. Appetite is okay. Some shortness of breath and wheezing. Checks x-ray showing infiltrate. Chest CTA shows-shows venous prominence versus pneumonitis. Tiny gallstones noted. Admitted with pneumonia-started on ceftriaxone. COPD exacerbation. Steroids bronchodilators added. Today-did tolerate her diet. Still congested in the chest. Some cough or sputum. Did tolerate some diet. Review of systems: Was done for constitutional, cardiovascular, GI, pulmonary. relevant finding as above Active Medications Acetaminophen (Tylenol Tab) 650 mg PO Q6HR PRN PRN Reason: Mild Pain or Fever > 100.5 Al Hydroxide/Mg Hydroxide (Maalox) 15 ml PO Q6HR PRN PRN Reason: Indigestion Albuterol/Ipratropium (Duoneb 0.5 Mg-3 Mg/3 Ml Soln) 3 ml INHALATION RT-Q2H PRN PRN Reason: Shortness Of Breath Or Wheezing Last Admin: 03/03/20 16:22 Dose: 3 ml Documented by: Alprazolam (Xanax) 0.25 mg PO Q6HR PRN PRN Reason: Anxiety Last Admin: 03/01/20 19:43 Dose: 0.25 mg Documented by: Amlodipine Besylate (Norvasc) 10 mg PO DAILY [facility] Last Admin: 03/03/20 08:24 Dose: 10 mg Documented by: Benzonatate (Tessalon Perles) 200 mg PO TID [facility] Last Admin: 03/03/20 15:05 Dose: 200 mg Documented by: Budesonide (Pulmicort) 1 mg INHALATION RT-BID [facility] Last Admin: 03/03/20 08:53 Dose: 1 mg Documented by: Calcium Carbonate/Glycine (Tums) 1,000 mg PO Q4HR PRN PRN Reason: Dyspepsia Fluoxetine HCl (Prozac) 20 mg PO [facility] Last Admin: 03/02/20 20:22 Dose: 20 mg Documented by: Folic Acid (Folic Acid) 1 mg PO [facility] Last Admin: 03/02/20 20:22 Dose: 1 mg Documented by: Formoterol Fumarate (Perforomist) 20 mcg INHALATION RT-BID [facility] Last Admin: 03/03/20 08:53 Dose: 20 mcg Documented by: Guaifenesin (Mucinex) 1,200 mg PO Q12HR [facility] Last Admin: 03/03/20 08:24 Dose: 1,200 mg Documented by: Lisinopril/HCTZ (Zestoretic 10-12.5) 1 each PO DAILY [facility] Last Admin: 03/03/20 08:24 Dose: 1 each Documented by: Cefepime HCl 1 gm/ Sodium (Chloride) 50 mls @ 100 mls/hr IVPB Q12HR [facility] Last Admin: 03/03/20 08:27 Dose: 100 mls/hr Documented by: Insulin Aspart (Novolog) 0 unit SQ [facility]; Protocol Last Admin: 03/03/20 17:05 Dose: Not Given Documented by: Lactulose (Cephulac) 20 gm PO DAILY PRN PRN Reason: Constipation Levothyroxine Sodium (Synthroid) 50 mcg PO DAILY@0630 [facility] Last Admin: 03/03/20 05:55 Dose: 50 mcg Documented by: Loratadine (Claritin) 5 mg PO Q12HR [facility] Last Admin: 03/03/20 08:23 Dose: 5 mg Documented by: Magnesium Hydroxide (Milk Of Magnesia) 2,400 mg PO DAILY PRN PRN Reason: Constipation Melatonin (Melatonin) 3 mg PO HS PRN PRN Reason: Insomnia Methylprednisolone Sodium Succinate (Solu-Medrol) 40 mg IV Q8HR [facility] Last Admin: 03/03/20 15:05 Dose: 40 mg Documented by: Metoprolol Tartrate (Lopressor) 25 mg PO BID [facility] Last Admin: 03/03/20 08:24 Dose: 25 mg Documented by: Miscellaneous Information (Pneumonia Protocol Utilized) 1 each PO ONCE PRN PRN Reason: Per Protocol Naloxone HCl (Narcan) 0.2 mg IV Q2M PRN PRN Reason: Opioid Reversal Ondansetron HCl (Zofran) 4 mg IVP Q8HR PRN PRN Reason: Nausea And Vomiting Oxymetazoline HCl (Afrin 0.05% Nasal [place]) 3 spray NASAL BID [facility] Last Admin: 03/03/20 08:30 Dose: Not Given Documented by: Pantoprazole Sodium (Protonix) 40 mg PO HS [facility] Last Admin: 03/02/20 20:22 Dose: 40 mg Documented by: Promethazine HCl (Phenergan Syrup) 6.25 mg PO Q6H PRN PRN Reason: Nausea And Vomiting Rivaroxaban (Xarelto) 20 mg PO [facility] Last Admin: 03/02/20 20:28 Dose: 20 mg Documented by: Tamsulosin HCl (Flomax) 0.4 mg PO [facility] Last Admin: 03/02/20 20:22 Dose: 0.4 mg Documented by: Tramadol HCl (Ultram) 50 mg PO QID PRN PRN Reason: Breakthrough Pain Last Admin: 03/02/20 17:33 Dose: 50 mg Documented by: Physical examination: VITAL SIGNS: 97.8, 72, 19, 120/70, 93% room air GENERAL: Laying bed, but tired. EYES: Pupils equal. Conjunctiva normal. HEENT: External appearance of nose and ears normal, oral cavity dry with NG tube. NECK: JVD not raised; masses not palpable. HEART: First and second heart sounds are normal; no edema. LUNGS: Respiratory rate increased, decreased breath sounds, some wheezing ABDOMEN: Soft, distended, hyperactive bowel sounds, mildly tender, liver spleen not palpable, no masses palpable. PSYCH: Alert and oriented x3; mood and affect normal. INVESTIGATIONS, reviewed in the clinical context: White count and hemoglobin 11.9 potassium 4.5 bun 32 crit 138 Previous testing White count 6.3 hemoglobin 12 platelets 182 bun 27 creatinine 1.26 Chest x-ray film reviewed by me shows infiltrate, also pneumonitis Computed tomography scan chest-results noted including right fifth and sixth left fracture Assessment: -Pneumonia, suspect gram-negative organism, POA -Significant congested in the chest -Right fifth and sixth rib fracture 4 days ago was -Chronic diverticulosis, asymptomatic -Chronic Grabiel fundoplication, -Coronary artery disease with a prior history of stent -Stage IV adenocarcinoma of the lung on chemotherapy -Normocytic anemia likely secondary to malignancy and chemotherapy -Acute COPD exacerbation in an oa-egaucu-sci diagnosis -Hypothyroidism -Essential hypertension -Hyperlipidemia -Obstructive sleep apnea -Chronic congestive heart failure from diastolic dysfunction EF 50-60% -Moderate aortic stenosis with sclerosis nonrheumatic -Chronic kidney disease. 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 - Plan: -Continue current medication treatment plan. Including antibiotic steroids. Mucinex added. I did communicate Dr. Aguilar for a possible bronchoscopy with lavage. Discussed with the patient.
[2020-03-03 20:52] LABS: Glucose,Whole Blood 227 mg/dL (75-99)
[2020-03-03] MEDS: FOLIC ACID 1 MG TAB PO SCH (21:50)
[2020-03-03] MEDS: PANTOPRAZOLE 40 MG TABLET PO SCH (21:50)
[2020-03-03] MEDS: FLUoxetine HCL 20 MG CAP PO SCH (21:50)
[2020-03-03] MEDS: RIVAROXABAN 20 MG TAB PO SCH (21:51)
[2020-03-03] MEDS: TAMSULOSIN 0.4 MG CAP.ER.24H PO SCH (21:51)
[2020-03-04] MEDS: methylPREDNISolone SOD SUCCI 40 MG/ML 1 ML VIAL IV SCH ×3 (00:03→18:00)
[2020-03-04] MEDS: ALPRAZolam 0.25 MG TAB PO PRN (00:03)
[2020-03-04] MEDS: LEVOTHYROXINE 50 MCG TAB PO SCH (05:47)
[2020-03-04 07:55] LABS: Glucose,Whole Blood 135 mg/dL (75-99)
[2020-03-04] MEDS: INSULIN ASPART (NovoLOG) 100 UNIT/ML VIAL SQ SCH ×3 (08:01→18:00)
[2020-03-04] MEDS: FORMOTEROL FUMARATE 20 MCG/2 ML NEBU INHALATION SCH ×2 (08:47→20:34)
[2020-03-04] MEDS: IPRATROPIUM-ALBUTEROL 3 ML NEB INHALATION PRN (08:47)
[2020-03-04] MEDS: BUDESONIDE 1 MG/2 ML NEBU INHALATION SCH ×2 (08:47→20:34)
[2020-03-04] MEDS: LISINOPRIL-HCTZ 10-12.5 MG 1 EACH TAB PO SCH (09:24)
[2020-03-04] MEDS: guaiFENesin 600 MG TABLET.ER PO SCH (09:24)
[2020-03-04] MEDS: CEFEPIME 1 GM in SODIUM CHLORIDE 0.9% 50 ML IVPB SCH (09:24)
[2020-03-04] MEDS: BENZONATATE 100 MG CAP PO SCH ×2 (09:25→18:00)
[2020-03-04] MEDS: amLODIPine 10 MG TAB PO SCH (09:25)
[2020-03-04] MEDS: METOPROLOL TARTRATE 25 MG TAB PO SCH (09:25)
[2020-03-04] MEDS: LORATADINE 10 MG TAB PO SCH (09:25)
[2020-03-04] MEDS: OXYMETAZOLINE 0.05% NASL SPRAY 1 SPRAY BOTTLE NASAL SCH (09:25)
[2020-03-04] MEDS: traMADol 50 MG TAB PO PRN (09:38)
[2020-03-04 11:57] LABS: Glucose,Whole Blood 128 mg/dL (75-99)
--- NOTE | 2020-03-04 15:27 | PN ---
PROGRESS NOTE DATE OF SERVICE: 03/04/2020 This is a very pleasant 79-year-old gentleman who is seen in followup on the selective care unit. He is awake and alert. No acute distress. He is sitting up at the bedside. He has a loose congested cough still. 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 He also has tracheal bronchomalacia. He has been slow to progress. The plan will be for bronchoscopy with BAL tomorrow. The patient is agreeable. PHYSICAL EXAMINATION: CONSTITUTIONAL: Awake and alert. Oriented 79-year-old gentleman in no acute distress. HEAD: Normocephalic. Sclerae anicteric. NECK: Supple. Trachea midline. LUNGS: Lungs have bilateral scattered rhonchi. HEART: His heart is regular S1, S2. ABDOMEN: Soft, nontender. Bowel sounds are present. EXTREMITIES: There is trace peripheral edema. No clubbing. No cyanosis. Peripheral pulses are intact. NEUROLOGIC: Alert and oriented x3. No focal deficits. INVESTIGATIONS: Labs reviewed. Medications reviewed. IMPRESSION: 1. Acute exacerbation of chronic obstructive pulmonary disease complicated by history of tracheobronchomalacia and small-cell lung cancer. 2. Multiple medical problems, as mentioned in our previous note. PLAN: The patient was seen and evaluated by Dr. Aguilar. We will continue with the current treatment plan. We will plan for bronchoscopy with BAL tomorrow. Increase his activity as tolerated. We will continue to follow. I, the cosigning physician, performed a history and physical examination on the patient. Lung sounds with bilateral scattered rhonchi. Maintain oxygen saturation in the 90s on room air. I discussed the assessment and plan of care with my nurse practitioner, America Saunders. I attest to the above note as dictated by her. MMODL / IJN: [id number] /
--- NOTE | 2020-03-04 15:37 | P.PN ---
Subjective Progress Note Date: 03/04/20 Principal diagnosis: COPD exacerbation In f/u pt is feeling about the same, cough in worse in AM and at night, he denies hemoptysis or fever. He is in good spirits Objective - Vital Signs Vital signs: Vital Signs Temp 97.9 F 03/04/20 15:00 Pulse 64 03/04/20 15:00 Resp 20 03/04/20 15:00 BP 130/77 03/04/20 15:00 Pulse Ox 92 L 03/04/20 15:00 Intake & Output 03/03/20 03/04/20 03/04/20 18:59 06:59 18:59 Intake Total 540 1060 Balance 540 1060 Intake: Oral 540 1060 Other: Voiding Method Toilet Toilet Toilet # Voids 3 1 - Constitutional General appearance: Present: average body habitus, cooperative, no acute distress - EENT Eyes: Present: anicteric sclerae, EOMI - Neurologic Neurologic: Present: CNII-XII intact - Musculoskeletal Musculoskeletal: Present: strength equal bilaterally - Psychiatric Psychiatric: Present: A&O x's 3, appropriate affect, intact judgment & insight - Labs CBC & Chem 7: 03/03/20 07:17 03/03/20 07:17 Labs: Abnormal Lab Results - Last 24 Hours (Table) 03/03/20 03/03/20 03/04/20 Range/Units 16:38 20:42 07:37 POC Glucose (mg/dL) 138 H 227 H 135 H (75-99) mg/dL 03/04/20 Range/Units 11:55 POC Glucose (mg/dL) 128 H (75-99) mg/dL Microbiology - Last 24 Hours (Table) 03/01/20 10:02 Blood Culture - Preliminary Blood No Growth after 72 hours Assessment and Plan (1) Acute exacerbation of chronic obstructive pulmonary disease (COPD) Narrative/Plan: Pulmonary reviewed plan, bronch tomorrow for airway evaluation and cultures. Current Visit: Yes Status: Acute Priority: High Code(s): J44.1 - CHRONIC OBSTRUCTIVE PULMONARY DISEASE W (ACUTE) EXACERBATION SNOMED Code(s): 635756154 (2) Non-small cell lung cancer (NSCLC) Narrative/Plan: Recent scans show NANY. He is not on treatment for almost 3 months now. Cont f/u and scans Q 3-4 months Current Visit: No Status: Chronic Priority: Medium Code(s): C34.90 - MALIGNANT NEOPLASM OF UNSP PART OF UNSP BRONCHUS OR LUNG SNOMED Code(s): 375914747
[2020-03-04 16:56] LABS: Glucose,Whole Blood 138 mg/dL (75-99)
[2020-03-04 21:10] LABS: Glucose,Whole Blood 160 mg/dL (75-99)
--- NOTE | 2020-03-04 22:38 | P.PN ---
Progress Note - Text Progress Note Date: 03/04/20 Chief Complaint: Cough History present complaint: This is a pleasant 79-year-old patient of Dr. Roxie Melendez. Chronic stable medical conditions include coronary artery disease, CHF with EF of 50-65%, moderate aortic stenosis with sclerosis, COPD, GERD, hyperlipidemia, h ypertension, primary Bairon arthritis,(s) sleep apnea, hypothyroid. 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 treated with chemotherapy -being followed with Dr. Rutherford.. History of Grabiel fundoplication, As in the past has had small bowel obstruction with resection colostomy and reversal of the same. Also had prostate cancer treated with radiation.. Patient was recently in the hospital on February 25 with a fall. Found to have right lateral fifth and sixth rib fracture. Sent home from the ER. Patient presents with worsening cough. Sputum yellow-green in color. Tired. Appetite is okay. Some shortness of breath and wheezing. Checks x-ray showing infiltrate. Chest CTA shows-shows venous prominence versus pneumonitis. Tiny gallstones noted. Admitted with pneumonia-started on ceftriaxone. COPD exacerbation. Steroids bronchodilators added. Today-did tolerate her diet. Still congested in the chest. Not able to expectorate. Short of breath. Sinus congestion.. Review of systems: Was done for constitutional, cardiovascular, GI, pulmonary. relevant finding as above Active Medications Acetaminophen (Tylenol Tab) 650 mg PO Q6HR PRN PRN Reason: Mild Pain or Fever > 100.5 Al Hydroxide/Mg Hydroxide (Maalox) 15 ml PO Q6HR PRN PRN Reason: Indigestion Albuterol/Ipratropium (Duoneb 0.5 Mg-3 Mg/3 Ml Soln) 3 ml INHALATION RT-Q2H PRN PRN Reason: Shortness Of Breath Or Wheezing Last Admin: 03/04/20 08:47 Dose: 3 ml Documented by: Alprazolam (Xanax) 0.25 mg PO Q6HR PRN PRN Reason: Anxiety Last Admin: 03/04/20 00:03 Dose: 0.25 mg Documented by: Amlodipine Besylate (Norvasc) 10 mg PO DAILY [facility] Last Admin: 03/04/20 09:25 Dose: 10 mg Documented by: Benzonatate (Tessalon Perles) 200 mg PO TID [facility] Last Admin: 03/04/20 18:00 Dose: Not Given Documented by: Budesonide (Pulmicort) 1 mg INHALATION RT-BID [facility] Last Admin: 03/04/20 20:34 Dose: Not Given Documented by: Calcium Carbonate/Glycine (Tums) 1,000 mg PO Q4HR PRN PRN Reason: Dyspepsia Fluoxetine HCl (Prozac) 20 mg PO [facility] Last Admin: 03/03/20 21:50 Dose: 20 mg Documented by: Folic Acid (Folic Acid) 1 mg PO [facility] Last Admin: 03/03/20 21:50 Dose: 1 mg Documented by: Formoterol Fumarate (Perforomist) 20 mcg INHALATION RT-BID [facility] Last Admin: 03/04/20 20:34 Dose: Not Given Documented by: Guaifenesin (Mucinex) 1,200 mg PO Q12HR [facility] Last Admin: 03/04/20 09:24 Dose: 1,200 mg Documented by: Lisinopril/HCTZ (Zestoretic 10-12.5) 1 each PO DAILY [facility] Last Admin: 03/04/20 09:24 Dose: 1 each Documented by: Cefepime HCl 1 gm/ Sodium (Chloride) 50 mls @ 100 mls/hr IVPB Q12HR [facility] Last Admin: 03/04/20 09:24 Dose: 100 mls/hr Documented by: Insulin Aspart (Novolog) 0 unit SQ [facility]; Protocol Last Admin: 03/04/20 18:00 Dose: Not Given Documented by: Lactulose (Cephulac) 20 gm PO DAILY PRN PRN Reason: Constipation Levothyroxine Sodium (Synthroid) 50 mcg PO DAILY@0630 [facility] Last Admin: 03/04/20 05:47 Dose: 50 mcg Documented by: Loratadine (Claritin) 5 mg PO Q12HR [facility] Last Admin: 03/04/20 09:25 Dose: 5 mg Documented by: Magnesium Hydroxide (Milk Of Magnesia) 2,400 mg PO DAILY PRN PRN Reason: Constipation Melatonin (Melatonin) 3 mg PO HS PRN PRN Reason: Insomnia Last Admin: 03/04/20 00:03 Dose: 3 mg Documented by: Methylprednisolone Sodium Succinate (Solu-Medrol) 40 mg IV Q8HR [facility] Last Admin: 03/04/20 18:00 Dose: Not Given Documented by: Metoprolol Tartrate (Lopressor) 25 mg PO BID [facility] Last Admin: 03/04/20 09:25 Dose: 25 mg Documented by: Miscellaneous Information (Pneumonia Protocol Utilized) 1 each PO ONCE PRN PRN Reason: Per Protocol Naloxone HCl (Narcan) 0.2 mg IV Q2M PRN PRN Reason: Opioid Reversal Ondansetron HCl (Zofran) 4 mg IVP Q8HR PRN PRN Reason: Nausea And Vomiting Oxymetazoline HCl (Afrin 0.05% Nasal [place]) 3 spray NASAL BID [facility] Last Admin: 03/04/20 09:25 Dose: Not Given Documented by: Pantoprazole Sodium (Protonix) 40 mg PO [facility] Last Admin: 03/03/20 21:50 Dose: 40 mg Documented by: Promethazine HCl (Phenergan Syrup) 6.25 mg PO Q6H PRN PRN Reason: Nausea And Vomiting Rivaroxaban (Xarelto) 20 mg PO [facility] Last Admin: 03/03/20 21:51 Dose: 20 mg Documented by: Sodium Bicarbonate (Sodium Bicarbonate Tab) 650 mg PO TID [facility] Tamsulosin HCl (Flomax) 0.4 mg PO [facility] Last Admin: 03/03/20 21:51 Dose: 0.4 mg Documented by: Tramadol HCl (Ultram) 50 mg PO QID PRN PRN Reason: Breakthrough Pain Last Admin: 03/04/20 09:38 Dose: 50 mg Documented by: Physical examination: VITAL SIGNS: 97.8, 65, 16, 155/93, 94% room air GENERAL: Laying bed, tired. EYES: Pupils equal. Conjunctiva normal. HEENT: External appearance of nose and ears normal, oral cavity dry with NG tube. NECK: JVD not raised; masses not palpable. HEART: First and second heart sounds are normal; no edema. LUNGS: Respiratory rate increased, decreased breath sounds, some wheezing ABDOMEN: Soft, distended, hyperactive bowel sounds, mildly tender, liver spleen not palpable, no masses palpable. PSYCH: Alert and oriented x3; mood and affect normal. INVESTIGATIONS, reviewed in the clinical context: White count and hemoglobin 11.9 potassium 4.5 bun 32 crit 138 Previous testing White count 6.3 hemoglobin 12 platelets 182 bun 27 creatinine 1.26 Chest x-ray film reviewed by me shows infiltrate, also pneumonitis Computed tomography scan chest-results noted including right fifth and sixth left fracture Assessment: -Pneumonia, suspect gram-negative organism, POA -Significant congested in the chest-needs to watch -Right fifth and sixth rib fracture 4 days ago was -Chronic diverticulosis, asymptomatic -Chronic Grabiel fundoplication, -Coronary artery disease with a prior history of stent -Stage IV adenocarcinoma of the lung on chemotherapy -Normocytic anemia likely secondary to malignancy and chemotherapy -Acute COPD exacerbation in an [id number] diagnosis -Hypothyroidism -Essential hypertension -Hyperlipidemia -Obstructive sleep apnea -Chronic congestive heart failure from diastolic dysfunction EF 50-60% -Moderate aortic stenosis with sclerosis nonrheumatic -Chronic kidney disease. 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 - Plan: -Continue current medication treatment plan. Discussed with the patient. Dr. Aguilar is proceeding with a bronchoscopy and lavage tomorrow. Add Claritin-D.
[2020-03-05] MEDS: FLUoxetine HCL 20 MG CAP PO SCH ×2 (03:26→20:27)
[2020-03-05] MEDS: CEFEPIME 1 GM in SODIUM CHLORIDE 0.9% 50 ML IVPB SCH ×3 (03:26→20:26)
[2020-03-05] MEDS: INSULIN ASPART (NovoLOG) 100 UNIT/ML VIAL SQ SCH ×5 (03:26→20:27)
[2020-03-05] MEDS: guaiFENesin 600 MG TABLET.ER PO SCH ×3 (03:26→20:27)
[2020-03-05] MEDS: FOLIC ACID 1 MG TAB PO SCH ×2 (03:26→20:27)
[2020-03-05] MEDS: OXYMETAZOLINE 0.05% NASL SPRAY 1 SPRAY BOTTLE NASAL SCH ×3 (03:27→20:26)
[2020-03-05] MEDS: RIVAROXABAN 20 MG TAB PO SCH ×2 (03:27→20:27)
[2020-03-05] MEDS: PANTOPRAZOLE 40 MG TABLET PO SCH ×2 (03:27→20:27)
[2020-03-05] MEDS: METOPROLOL TARTRATE 25 MG TAB PO SCH ×3 (03:27→20:27)
[2020-03-05] MEDS: TAMSULOSIN 0.4 MG CAP.ER.24H PO SCH ×2 (03:27→20:27)
[2020-03-05] MEDS: BENZONATATE 100 MG CAP PO SCH ×4 (03:28→22:17)
[2020-03-05] MEDS: methylPREDNISolone SOD SUCCI 40 MG/ML 1 ML VIAL IV SCH ×3 (03:28→16:20)
[2020-03-05] MEDS: LORATADINE 10 MG TAB PO SCH (03:29)
[2020-03-05] MEDS: SODIUM BICARBONATE TAB 650 MG TAB PO SCH ×4 (05:39→22:17)
[2020-03-05] MEDS: LEVOTHYROXINE 50 MCG TAB PO SCH (05:51)
[2020-03-05] MEDS: traMADol 50 MG TAB PO PRN ×3 (06:16→20:32)
[2020-03-05 07:29] LABS: Glucose,Whole Blood 140 mg/dL (75-99)
[2020-03-05] MEDS: amLODIPine 10 MG TAB PO SCH (07:50)
[2020-03-05] MEDS: ALPRAZolam 0.25 MG TAB PO PRN ×2 (07:51→13:57)
[2020-03-05] MEDS: LISINOPRIL-HCTZ 10-12.5 MG 1 EACH TAB PO SCH (07:57)
[2020-03-05] MEDS: IPRATROPIUM-ALBUTEROL 3 ML NEB INHALATION PRN (08:45)
[2020-03-05] MEDS: FORMOTEROL FUMARATE 20 MCG/2 ML NEBU INHALATION SCH ×2 (08:45→20:35)
[2020-03-05] MEDS: BUDESONIDE 1 MG/2 ML NEBU INHALATION SCH ×2 (08:45→20:35)
[2020-03-05] MEDS ORDERED: LORATADINE-PSEUDOEPH 5-120 MG 1 EACH TAB.ER.12H PO SCH (09:00)
--- NOTE | 2020-03-05 11:04 | P.PN ---
Subjective Progress Note Date: 03/05/20 Principal diagnosis: Acute exacerbation of COPD, Gabitril and tracheobronchitis and possible bronchopneumonia in the left lower lobe On 03/03/2020 patient seen in follow-up on general medical floor, still having harsh coughing, not bringing up much sputum, his cough is characteristic of tracheal bronchomalacia, yesterday we started Tessalon Perles, patient remains on IV steroids and antibiotics. Room air pulse ox 95%, hemodynamically stable, afebrile. Pro-calcitonin level came back negative at 0.04, proBNP is elevated at 2100. Troponin was less than 0.012. Today's labs have been reviewed, white blood cell count is 10, 11 is 11.9, sodium is 136, potassium is 4.5, CO2 is 21, B1 is 32 creatinine is 1.38. Patient is on Pulmicort and Perforomist, DuoNeb breathing treatments, yesterday chest x-ray showed increased attenuation at the left base with air bronchograms, possibility of bronchopneumonia. No fever or chills. On 03/05/2020 patient seen in follow-up on general medical floor. Still bronchospastic and congested, not bringing up much sputum. Patient has been maximized on medical treatment, remains on IV steroids, antibiotics, Tessalon Perles, breathing treatments. Vital signs have been stable, room air pulse ox is 93%. His pro-calcitonin level was low at 0.04, patient remains on empiric antibiotics in the form of cefepime for possibility of purulent tracheobronchitis. No new labs today. Otherwise no acute events overnight, patient has been ambulating in the room and to the bathroom, tolerating activity well, although does have exertional dyspnea. He has been nothing by mouth after midnight for bronchoscopy with BAL today Objective - Vital Signs Vital signs: Vital Signs Temp 97.6 F 03/05/20 07:00 Pulse 69 03/05/20 09:12 Resp 18 03/05/20 07:00 BP 170/107 03/05/20 07:00 Pulse Ox 93 L 03/05/20 07:00 Intake & Output 03/04/20 03/05/20 03/05/20 18:59 06:59 18:59 Other: Voiding Method Toilet # Voids 6 2 - Exam GENERAL EXAM: Alert, very pleasant, 79-year-old white male, on room air, with a pulse ox of 93%, comfortable in no apparent distress. HEAD: Normocephalic/atraumatic. EYES: Normal reaction of pupils, equal size. Conjunctiva pink, sclera white. NOSE: Clear with pink turbinates. THROAT: No erythema or exudates. NECK: No masses, no JVD, no thyroid enlargement, no adenopathy. CHEST: No chest wall deformity. Symmetrical expansion. LUNGS: Equal air entry with diffuse rhonchi some scattered wheezes CVS: Regular rate and rhythm, normal S1 and S2, no gallops, no murmurs, no rubs ABDOMEN: Soft, nontender. No hepatosplenomegaly, normal bowel sounds, no guarding or rigidity. EXTREMITIES: No clubbing, no edema, no cyanosis, 2+ pulses and upper and lower extremities. MUSCULOSKELETAL: Muscle strength and tone normal. SPINE: No scoliosis or deformity SKIN: No rashes CENTRAL NERVOUS SYSTEM: Alert and oriented -3. No focal deficits, tone is normal in all 4 extremities. PSYCHIATRIC: Alert and oriented -3. Appropriate affect. Intact judgment and insight. - Labs CBC & Chem 7: 03/03/20 07:17 03/03/20 07:17 Labs: Abnormal Lab Results - Last 24 Hours (Table) 03/04/20 03/04/20 03/04/20 Range/Units 11:55 16:53 21:09 POC Glucose (mg/dL) 128 H 138 H 160 H (75-99) mg/dL 03/05/20 Range/Units 07:22 POC Glucose (mg/dL) 140 H (75-99) mg/dL Microbiology - Last 24 Hours (Table) 03/01/20 10:02 Blood Culture - Preliminary Blood No Growth after 72 hours Assessment and Plan Plan: Assessment: #1. Acute exacerbation of COPD complicated by purulent tracheobronchitis and possible bronchopneumonia at the left lower lobe. CTA chest showed bilateral interstitial prominence greater on the left with peribronchial thickening and left basilar consolidation and small effusion could be on the basis of bronc hitis with superimposed interstitial pneumonitis. Pro-calcitonin level was negative at 0.04 suggesting absence of bacterial pneumonia #2. History of lung cancer, small cell, status post chemotherapy #3. History of atrial fibrillation #4. History of CAD with previous myocardial infarction and previous stent placement #5. Prostate cancer #6. History of skin cancer #7. Chronic congestive heart failure #8. GERD/reflux #9. Hyperlipidemia #10. History of hypertension #11. History of pneumonia #12. History of sleep apnea syndrome #13. Hypothyroidism #14. Previous small bowel obstruction with resection, colostomy and colostomy reversal #15. Status post Grabiel fundoplication #16. Multiple other medical problems and comorbidities Plan: Patient has been nothing by mouth after midnight for bronchoscopy with BAL today with Dr. Aguilar. Continue current medical treatment, IV steroids, antibiotics, breathing treatments and Tessalon Perles. Vital signs have been stable overnight, no acute complaints. Does have exertional dyspnea and persistent harsh nonproductive cough. Proceed with bronchoscopy with BAL today to assess for possibility of tracheobronchomalacia, and lower airway lavage and sputum sampling. We'll follow I performed a history & physical examination of the patient and discussed their management with my nurse practitioner, Ladan Awad. I reviewed the nurse practitioner's note and agree with the documented findings and plan of care. Lung sounds are positive for scattered wheezes. The findings and the impression was discussed with the patient. I attest to the documentation by the nurse practitioner. Time with Patient: Less than 30
[2020-03-05] MEDS ORDERED: fentaNYL (PF) 50 MCG/ML 2 ML AMP ONE (11:57)
[2020-03-05] MEDS ORDERED: MIDAZOLAM 2 MG/2 ML VIAL ONE (11:57)
[2020-03-05] MEDS ORDERED: LIDOCAINE 1% INJ 10MG/ML (20 ML MDV) ONE (11:57)
[2020-03-05] MEDS ORDERED: PROPOFOL 10 MG/ML 20 ML VIAL IV ONE (11:57)
[2020-03-05] MEDS ORDERED: KETAMINE 10 MG/ML 20 ML VIAL ONE (11:57)
[2020-03-05] MEDS ORDERED: IV FLUID CONTINUATION 800 ML IV ONE (11:58)
[2020-03-05] MEDS ORDERED: LIDOCAINE 2% INJ 20 MG/ML INTRATRACH ONE (11:59)
[2020-03-05 12:39] LABS: Glucose,Whole Blood 143 mg/dL (75-99)
--- NOTE | 2020-03-05 15:53 | P.GSCN ---
History of Present Illness Consult date: 03/05/20 History of present illness: This is an 79-year-old gentleman known to me for prostate cancer last seen in July 2016. He is previously treated with radiation therapy and LHRH therapy in 2008. His PSA had been relatively stable and the lip was last measured at 0.3 which is appropriate post radiation therapy. The patient developed lung cancer and has been treated with this. He has significant lung cancer such that only chemotherapies instituted. The chemo therapy has stabilized to cancer but not cured. The patient is in the hospital pulmonary issues. He has complained of urinary frequency, daytime stress incontinence and nocturnal enuresis and for this reason we are asked to see the patient. The patient has not been evaluated for his prostate cancer since 2015. He has no urinalysis on the chart. There is no PSA on the chart. There is no other urologic history that can be given. He denies hematuria or dysuria. Review of Systems - Constitutional Reports anorexia - Genitourinary Reports as per HPI Past Medical History Past Medical History: Atrial Fibrillation, Asthma, Coronary Artery Disease (CAD), Cancer, COPD, GERD/Reflux, Hyperlipidemia, Hypertension, Osteoarthritis (OA), Pneumonia, Respiratory Disorder, Sleep Apnea/CPAP/BIPAP, Thyroid Disorder Additional Past Medical History / Comment(s): Lung Cancer, currently on hold of treatment, last chemo was in November/2019, to have chemo again in 2 months. diverticular disease, SBO with resection/colostomy/reversal of colostomy, prostate cancer with radiation tx, skin cancer removed from face, hypothyroid History of Any Multi-Drug Resistant Organisms: None Reported Past Surgical History: Bowel Resection, Heart Catheterization, Heart Catheterization With Stent, Orthopedic Surgery, Tonsillectomy Additional Past Surgical History / Comment(s): 01/07/19 bronchoscopy with BAL, past bronchoscopies/bx, PCI with stent 2006, bilateral reconstructive ear surgery and gland removed under jaw, bowel resection d/t rupture with colostomy later reversed, L cataract removal, demetra fundoloplasty, bilateral total shoulders/knees, L knee arthroscopy x 2, EGD, colonoscopy, prostate bx, bilateral exciscion gynecomastia, skin cancer removals. Past Anesthesia/Blood Transfusion Reactions: No Reported Reaction, Motion Sickness Date of Last Stent Placement:: 2006 Past Psychological History: No Psychological Hx Reported Additional Psychological History / Comment(s): Pt resides with his spouse. He has a nebulizer. He drives. Smoking Status: Former smoker Past Alcohol Use History: Occasional Additional Past Alcohol Use History / Comment(s): SMOKED OCCASIONAL CIGAR. STARTED SMOKING AT AGE 14 ,SMOKED TILL 1982 Past Drug Use History: None Reported - Past Family History Mother Family Medical History: Cancer Additional Family Medical History / Comment(s): MULTIPLE MEYLOMA Father Family Medical History: Cancer Additional Family Medical History / Comment(s): LUNG CANCER Sister(s) Family Medical History: Cancer Additional Family Medical History / Comment(s): sister had rectal cancer. Son(s) Family Medical History: Cancer Additional Family Medical History / Comment(s): Son has hodgkins lymphoma Medications and Allergies Home Medications Medication Instructions Recorded Confirmed Type FLUoxetine HCL [PROzac] 20 mg PO HS 08/05/14 03/01/20 History Levothyroxine Sodium [Synthroid] 50 mcg PO DAILY 08/05/14 03/01/20 History Omeprazole [PriLOSEC] 40 mg PO HS 08/05/14 03/01/20 History Tamsulosin [Flomax] 0.4 mg PO HS 08/05/14 03/01/20 History Folic Acid 1 mg PO HS 02/12/18 03/01/20 History Fluticasone Nasal [place] [Flonase 1 spray EA NOSTRIL DAILY PRN 11/18/19 03/01/20 History Nasal [place]] Fluticasone/Umeclidin/Vilanter 1 puff INHALATION RT-DAILY 11/18/19 03/01/20 History [Trelegy Ellipta 100-62.5-25] Lisinopril [Zestril] 2.5 mg PO DAILY 11/18/19 03/01/20 History predniSONE 5 mg PO DAILY 11/18/19 03/01/20 History Cholecalciferol [Vitamin D3 (25 1,000 unit PO DAILY 03/01/20 03/01/20 History Mcg = 1000 Iu)] L.acidoph,Paracasei, B.lactis 1 tab PO DAILY 03/01/20 03/01/20 History [Probiotic] Metoprolol Tartrate [Lopressor] 25 mg PO BID 03/01/20 03/01/20 History Rivaroxaban [Xarelto] 20 mg PO HS 03/01/20 03/01/20 History Allergies Allergy/AdvReac Type Severity Reaction Status Date / Time No Known Allergies Allergy Verified 03/01/20 16:02 Surgical - Exam Vital Signs Temp Pulse Resp BP Pulse Ox 97.7 F 59 L 18 170/96 94 L 03/01/20 09:28 03/01/20 09:28 03/01/20 09:28 03/01/20 09:28 03/01/20 09:28 - General well developed, well nourished, no distress - Eyes PERRL - ENT no hearing loss - Neck trachea midline - Respiratory normal expansion, normal respiratory effort - Cardiovascular Rhythm: regular - Abdomen Abdomen: soft, non tender - Genitourinary normal penis with no external lesions, testicles present - Integumentary no rash, no growths - Neurologic normal coordination, normal sensation - Musculoskeletal normal gait, normal posture - Psychiatric oriented to time, oriented to person, oriented to place, speech is normal, memory intact Results - Labs 03/03/20 07:17 03/03/20 07:17 Abnormal Lab Results - Last 24 Hours (Table) 03/04/20 03/04/20 03/05/20 Range/Units 16:53 21:09 07:22 POC Glucose (mg/dL) 138 H 160 H 140 H (75-99) mg/dL 03/05/20 Range/Units 12:37 POC Glucose (mg/dL) 143 H (75-99) mg/dL Microbiology - Last 24 Hours (Table) 03/01/20 10:02 Blood Culture - Preliminary Blood No Growth after 96 hours Assessment and Plan Assessment: Impression: Lung cancer with respiratory issues. Prostate cancer asked to evaluate in 2016. Urinary incontinence both stress incontinence and enuresis by history. Recommendations: Obtain a urinalysis, postvoid residual and PSA. The results of these as further urologic recommendations. Most of this can be done as an outpatient.
[2020-03-05 17:23] LABS: Glucose,Whole Blood 126 mg/dL (75-99)
--- NOTE | 2020-03-05 18:18 | P.PN ---
Progress Note - Text Progress Note Date: 03/05/20 Chief Complaint: Cough History present complaint: This is a pleasant 79-year-old patient of Dr. Roxie Melendez. Chronic stable medical conditions include coronary artery disease, CHF with EF of 50-65%, moderate aortic stenosis with sclerosis, COPD, GERD, hyperlipidemia, h ypertension, primary [place] arthritis,(s) sleep apnea, hypothyroid. 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 treated with chemotherapy -being followed with Dr. Rutherford.. History of Grabiel fundoplication, As in the past has had small bowel obstruction with resection colostomy and reversal of the same. Also had prostate cancer treated with radiation.. Patient was recently in the hospital on February 25 with a fall. Found to have right lateral fifth and sixth rib fracture. Sent home from the ER. Patient presents with worsening cough. Sputum yellow-green in color. Tired. Appetite is okay. Some shortness of breath and wheezing. Checks x-ray showing infiltrate. Chest CTA shows-shows venous prominence versus pneumonitis. Tiny gallstones noted. Admitted with pneumonia-started on ceftriaxone. COPD exacerbation. Steroids bronchodilators added. Today-earlier today patient underwent a bronchoscopy and lavage. Official report is not present. Patient still feels a bit congested in the chest. No better. Review of systems: Was done for constitutional, cardiovascular, GI, pulmonary. relevant finding as above Active Medications Acetaminophen (Tylenol Tab) 650 mg PO Q6HR PRN PRN Reason: Mild Pain or Fever > 100.5 Al Hydroxide/Mg Hydroxide (Maalox) 15 ml PO Q6HR PRN PRN Reason: Indigestion Albuterol/Ipratropium (Duoneb 0.5 Mg-3 Mg/3 Ml Soln) 3 ml INHALATION RT-Q2H PRN PRN Reason: Shortness Of Breath Or Wheezing Last Admin: 03/05/20 08:45 Dose: 3 ml Documented by: Alprazolam (Xanax) 0.25 mg PO Q6HR PRN PRN Reason: Anxiety Last Admin: 03/05/20 13:57 Dose: 0.25 mg Documented by: Amlodipine Besylate (Norvasc) 10 mg PO DAILY [facility] Last Admin: 03/05/20 07:50 Dose: 10 mg Documented by: Benzonatate (Tessalon Perles) 200 mg PO TID [facility] Last Admin: 03/05/20 16:19 Dose: 200 mg Documented by: Budesonide (Pulmicort) 1 mg INHALATION RT-BID [facility] Last Admin: 03/05/20 08:45 Dose: 1 mg Documented by: Calcium Carbonate/Glycine (Tums) 1,000 mg PO Q4HR PRN PRN Reason: Dyspepsia Fluoxetine HCl (Prozac) 20 mg PO [facility] Last Admin: 03/05/20 03:26 Dose: Not Given Documented by: Folic Acid (Folic Acid) 1 mg PO HS [facility] Last Admin: 03/05/20 03:26 Dose: Not Given Documented by: Formoterol Fumarate (Perforomist) 20 mcg INHALATION RT-BID [facility] Last Admin: 03/05/20 08:45 Dose: 20 mcg Documented by: Guaifenesin (Mucinex) 1,200 mg PO Q12HR [facility] Last Admin: 03/05/20 07:56 Dose: 1,200 mg Documented by: Lisinopril/HCTZ (Zestoretic 10-12.5) 1 each PO DAILY [facility] Last Admin: 03/05/20 07:57 Dose: 1 each Documented by: Cefepime HCl 1 gm/ Sodium (Chloride) 50 mls @ 100 mls/hr IVPB Q12HR [facility] Last Admin: 03/05/20 07:53 Dose: 100 mls/hr Documented by: Insulin Aspart (Novolog) 0 unit SQ ACHS [facility]; Protocol Last Admin: 03/05/20 17:34 Dose: Not Given Documented by: Lactulose (Cephulac) 20 gm PO DAILY PRN PRN Reason: Constipation Levothyroxine Sodium (Synthroid) 50 mcg PO DAILY@0630 [facility] Last Admin: 03/05/20 05:51 Dose: 50 mcg Documented by: Loratadine/Pseudoephedrine Sulfate (Claritin-D 12 Hr) 1 each PO DAILY [facility] Last Admin: 03/05/20 07:51 Dose: 1 each Documented by: Magnesium Hydroxide (Milk Of Magnesia) 2,400 mg PO DAILY PRN PRN Reason: Constipation Melatonin (Melatonin) 3 mg PO HS PRN PRN Reason: Insomnia Last Admin: 03/04/20 00:03 Dose: 3 mg Documented by: Methylprednisolone Sodium Succinate (Solu-Medrol) 40 mg IV Q8HR [facility] Last Admin: 03/05/20 16:20 Dose: 40 mg Documented by: Metoprolol Tartrate (Lopressor) 25 mg PO BID [facility] Last Admin: 03/05/20 07:50 Dose: 25 mg Documented by: Miscellaneous Information (Pneumonia Protocol Utilized) 1 each PO ONCE PRN PRN Reason: Per Protocol Naloxone HCl (Narcan) 0.2 mg IV Q2M PRN PRN Reason: Opioid Reversal Ondansetron HCl (Zofran) 4 mg IVP Q8HR PRN PRN Reason: Nausea And Vomiting Oxymetazoline HCl (Afrin 0.05% Nasal [place]) 3 spray NASAL BID [facility] Last Admin: 03/05/20 07:51 Dose: 3 spray Documented by: Pantoprazole Sodium (Protonix) 40 mg PO [facility] Last Admin: 03/05/20 03:27 Dose: Not Given Documented by: Promethazine HCl (Phenergan Syrup) 6.25 mg PO Q6H PRN PRN Reason: Nausea And Vomiting Rivaroxaban (Xarelto) 20 mg PO [facility] Last Admin: 03/05/20 03:27 Dose: Not Given Documented by: Sodium Bicarbonate (Sodium Bicarbonate Tab) 650 mg PO TID [facility] Last Admin: 03/05/20 16:20 Dose: 650 mg Documented by: Tamsulosin HCl (Flomax) 0.4 mg PO [facility] Last Admin: 03/05/20 03:27 Dose: Not Given Documented by: Tramadol HCl (Ultram) 50 mg PO QID PRN PRN Reason: Breakthrough Pain Last Admin: 03/05/20 13:56 Dose: 50 mg Documented by: Physical examination: VITAL SIGNS: 98.2, 64, 18, 178-100, 93% room air GENERAL: Laying in bed, awake EYES: Pupils equal. Conjunctiva normal. HEENT: External appearance of nose and ears normal, oral cavity dry with NG tube. NECK: JVD not raised; masses not palpable. HEART: First and second heart sounds are normal; no edema. LUNGS: Respiratory rate increased, decreased breath sounds, some wheezing ABDOMEN: Soft, distended, hyperactive bowel sounds, mildly tender, liver spleen not palpable, no masses palpable. PSYCH: Alert and oriented x3; mood and affect normal. INVESTIGATIONS, reviewed in the clinical context: White count and hemoglobin 11.9 potassium 4.5 bun 32 crit 138 Previous testing White count 6.3 hemoglobin 12 platelets 182 bun 27 creatinine 1.26 Chest x-ray film reviewed by me shows infiltrate, also pneumonitis Computed tomography scan chest-results noted including right fifth and sixth left fracture Assessment: -Pneumonia, suspect gram-negative organism, POA -Significant congested in the status post bronchoscopy with lavage -Right fifth and sixth rib fracture 4 days prior to admission -Chronic diverticulosis, asymptomatic -Chronic Grabiel fundoplication, -Coronary artery disease with a prior history of stent -Stage IV adenocarcinoma of the lung on chemotherapy -Normocytic anemia likely secondary to malignancy and chemotherapy -Acute COPD exacerbation in an [id number] diagnosis -Hypothyroidism -Essential hypertension -Hyperlipidemia -Obstructive sleep apnea -Chronic congestive heart failure from diastolic dysfunction EF 50-60% -Moderate aortic stenosis with sclerosis nonrheumatic -Chronic kidney disease. 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 - Plan: -Care was discussed with the patient. Continue current medication for plan. Await bronchoscopy results. Discussed with the patient. Follow with pulmonary. Increase Lopressor to 50 mg twice a day.
[2020-03-05] MEDS: predniSONE 20 MG TAB PO SCH (19:22)
[2020-03-05 20:10] LABS: Glucose,Whole Blood 177 mg/dL (75-99)
--- NOTE | 2020-03-05 20:27 | PCN ---
PROCEDURE NOTE PROCEDURE: Bronchoscopy, airway examination, therapeutic lavage, BAL. OPERATORS: Dr. Aguilar, Dr. Saunders and Brittni Awad. PREOPERATIVE DIAGNOSIS: Severe tracheobronchomalacia. POSTOPERATIVE DIAGNOSIS: Severe tracheobronchomalacia. There was informed consent and universal timeout. The patient's procedure took place in room #1. Anesthesia provided general anesthesia. PROCEDURE DESCRIPTION: After the patient was adequately sedated and being fully monitored, the bronchoscope was inserted through the right nostril. It passed through the right nasopharynx into the oropharynx. The hypopharynx was identified. All the important structures were identified and found to be normal, including anterior commissure, true cords, false cords, arytenoids, piriform sinuses, right and left valleculae, epiglottis and even the frenulum of the tongue. Next, after topicalization, the bronchoscope was inserted through the glottic opening into the trachea. Immediately noted was the fact that the patient had severe tracheomalacia. There were secretions noted throughout the trachea. They were suctioned. The right and left mainstem were topicalized. The tracheal sloan was sharp. The right upper lobe and its 3 segments, the right middle lobe and its 2 segments, the right lower lobe and its 5 segments, the left upper lobe proper and its 2 segments, the lingula and its 2 segments, and the left lower lobe and its 4 segments all had similar findings of diffuse airway erythema and hyperemia. There was mucosal friability and vascular engorgement. There were thick secretions noted throughout. Likewise, the patient had severe bronchomalacia. The airways were very collapsible. I would grade it as being moderately severe to severe. The bronchoscope was then wedged into the right middle lobe. The BAL took place. The patient tolerated the procedure well. There were no immediate complications. Thirty mL of fluid was recovered. The fluid was sent for analysis. The patient tolerated procedure well and will be recovered go back to his room. The fluid was sent for evaluation. MMODL / IJN: [id number] /
[2020-03-05 22:27] LABS: Appearance,BF Hazy; Color,BF Pink; Nucleated Cells, Body Fluid 50 /uL
[2020-03-05 22:29] LABS: RBC, Body Fluid 17150 /uL
[2020-03-05 22:39] LABS: Mononuclear WBC,Body Fluid 76 %; Polynuclear WBC,Body Fluid 23 %; Total Cells Counted,Body Fluid 200
[2020-03-06] MEDS: traMADol 50 MG TAB PO PRN (05:46)
[2020-03-06] MEDS: LEVOTHYROXINE 50 MCG TAB PO SCH (05:47)
[2020-03-06 07:22] LABS: Glucose,Whole Blood 128 mg/dL (75-99)
[2020-03-06] MEDS: INSULIN ASPART (NovoLOG) 100 UNIT/ML VIAL SQ SCH ×2 (07:33→12:11)
[2020-03-06] MEDS: BENZONATATE 100 MG CAP PO SCH (07:43)
[2020-03-06] MEDS: predniSONE 20 MG TAB PO SCH (07:43)
[2020-03-06] MEDS: SODIUM BICARBONATE TAB 650 MG TAB PO SCH (07:43)
[2020-03-06] MEDS: LISINOPRIL-HCTZ 10-12.5 MG 1 EACH TAB PO SCH (07:44)
[2020-03-06] MEDS: CEFEPIME 1 GM in SODIUM CHLORIDE 0.9% 50 ML IVPB SCH (07:44)
[2020-03-06] MEDS: METOPROLOL TARTRATE 25 MG TAB PO SCH (07:44)
[2020-03-06] MEDS: amLODIPine 10 MG TAB PO SCH (07:44)
[2020-03-06] MEDS: guaiFENesin 600 MG TABLET.ER PO SCH (07:44)
[2020-03-06] MEDS: OXYMETAZOLINE 0.05% NASL SPRAY 1 SPRAY BOTTLE NASAL SCH (07:45)
[2020-03-06 08:28] VITALS: PULSE 68
[2020-03-06] MEDS: FORMOTEROL FUMARATE 20 MCG/2 ML NEBU INHALATION SCH (08:30)
[2020-03-06] MEDS: BUDESONIDE 1 MG/2 ML NEBU INHALATION SCH (08:30)
[2020-03-06 08:32] VITALS: BP 156/95; TEMP 97.7
[2020-03-06 08:56] VITALS: RESP 18
[2020-03-06 10:46] VITALS: BMI 29.8
--- NOTE | 2020-03-06 11:44 | P.PN ---
Subjective Progress Note Date: 03/06/20 Principal diagnosis: Acute exacerbation of COPD, Gabitril and tracheobronchitis and possible bronchopneumonia in the left lower lobe On 03/03/2020 patient seen in follow-up on general medical floor, still having harsh coughing, not bringing up much sputum, his cough is characteristic of tracheal bronchomalacia, yesterday we started Tessalon Perles, patient remains on IV steroids and antibiotics. Room air pulse ox 95%, hemodynamically stable, afebrile. Pro-calcitonin level came back negative at 0.04, proBNP is elevated at 2100. Troponin was less than 0.012. Today's labs have been reviewed, white blood cell count is 10, 11 is 11.9, sodium is 136, potassium is 4.5, CO2 is 21, B1 is 32 creatinine is 1.38. Patient is on Pulmicort and Perforomist, DuoNeb breathing treatments, yesterday chest x-ray showed increased attenuation at the left base with air bronchograms, possibility of bronchopneumonia. No fever or chills. On 03/05/2020 patient seen in follow-up on general medical floor. Still bronchospastic and congested, not bringing up much sputum. Patient has been maximized on medical treatment, remains on IV steroids, antibiotics, Tessalon Perles, breathing treatments. Vital signs have been stable, room air pulse ox is 93%. His pro-calcitonin level was low at 0.04, patient remains on empiric antibiotics in the form of cefepime for possibility of purulent tracheobronchitis. No new labs today. Otherwise no acute events overnight, patient has been ambulating in the room and to the bathroom, tolerating activity well, although does have exertional dyspnea. He has been nothing by mouth after midnight for bronchoscopy with BAL today On 03/06/2020 patient seen in follow-up on general medical floor. Patient is status post bronchoscopy with BAL today, bronchial lavage Gram stain showed rare PMNs, moderate gram-positive cocci, and rare gram-positive bacilli. Final culture is pending, pro-calcitonin was negative, 0.04. Vital signs have been stable. No fever or chills, room air pulse ox is 92%, patient is in the waiting room, tolerated activity well, empiric antibiotics with cefepime, breathing treatments, steroids, clinically improving, stable for discharge home today. Objective - Vital Signs Vital signs: Vital Signs Temp 97.7 F 03/06/20 07:00 Pulse 68 03/06/20 07:00 Resp 18 03/06/20 07:50 BP 156/95 03/06/20 07:00 Pulse Ox 92 L 03/06/20 07:00 Intake & Output 03/05/20 03/06/20 03/06/20 18:59 06:59 18:59 Intake Total 145 100 Balance 145 100 Weight 99.79 kg Intake: IV 100 Intake, IV Titration 100 Amount Cefepime 1 gm In Sodium 100 Chloride 0.9% 50 ml @ 100 mls/hr IVPB Q12HR [facility] Rx #:[id number] Oral 45 Other: Voiding Method Toilet Toilet # Voids 1 - Exam GENERAL EXAM: Alert, very pleasant, 79-year-old white male, on room air, with a pulse ox of 92%, comfortable in no apparent distress. HEAD: Normocephalic/atraumatic. EYES: Normal reaction of pupils, equal size. Conjunctiva pink, sclera white. NOSE: Clear with pink turbinates. THROAT: No erythema or exudates. NECK: No masses, no JVD, no thyroid enlargement, no adenopathy. CHEST: No chest wall deformity. Symmetrical expansion. LUNGS: Equal air entry with minimal rhonchi CVS: Regular rate and rhythm, normal S1 and S2, no gallops, no murmurs, no rubs ABDOMEN: Soft, nontender. No hepatosplenomegaly, normal bowel sounds, no guarding or rigidity. EXTREMITIES: No clubbing, no edema, no cyanosis, 2+ pulses and upper and lower extremities. MUSCULOSKELETAL: Muscle strength and tone normal. SPINE: No scoliosis or deformity SKIN: No rashes CENTRAL NERVOUS SYSTEM: Alert and oriented -3. No focal deficits, tone is normal in all 4 extremities. PSYCHIATRIC: Alert and oriented -3. Appropriate affect. Intact judgment and insight. - Labs CBC & Chem 7: 03/03/20 07:17 03/03/20 07:17 Labs: Abnormal Lab Results - Last 24 Hours (Table) 03/05/20 03/05/20 03/05/20 Range/Units 12:37 17:17 20:08 POC Glucose (mg/dL) 143 H 126 H 177 H (75-99) mg/dL 03/06/20 Range/Units 07:20 POC Glucose (mg/dL) 128 H (75-99) mg/dL Microbiology - Last 24 Hours (Table) 03/05/20 12:00 Gram Stain - Preliminary Bronchoalviolar Lavage - Right Bronchial Washings Culture - Preliminary 03/05/20 12:00 Fungal Culture - Preliminary Bronchoalviolar Lavage - Right 03/05/20 12:00 Acid Fast Bacilli Culture - Preliminary Bronchoalviolar Lavage - Right 03/01/20 10:02 Blood Culture - Preliminary Blood No Growth after 96 hours Assessment and Plan Plan: Assessment: #1. Acute exacerbation of COPD complicated by purulent tracheobronchitis and possible bronchopneumonia at the left lower lobe. CTA chest showed bilateral interstitial prominence greater on the left with peribronchial thickening and left basilar consolidation and small effusion could be on the basis of bronchitis with superimposed interstitial pneumonitis. Pro-calcitonin level was negative at 0.04 suggesting absence of bacterial pneumonia #2. History of lung cancer, small cell, status post chemotherapy #3. History of atrial fibrillation #4. History of CAD with previous myocardial infarction and previous stent placement #5. Prostate cancer #6. History of skin cancer #7. Chronic congestive heart failure #8. GERD/reflux #9. Hyperlipidemia #10. History of hypertension #11. History of pneumonia #12. History of sleep apnea syndrome #13. Hypothyroidism #14. Previous small bowel obstruction with resection, colostomy and colostomy reversal #15. Status post Grabiel fundoplication #16. Multiple other medical problems and comorbidities Plan: Patient is improving, breathing easier, vital signs are stable, patient is afebrile, bronchial lavage cultures are pending, no acute events overnight, patient has been treated with empiric antibiotics, IV steroids, breathing treatments, significantly improved, tolerating ambulation, stable for discharge home today with follow-up with Dr. Kenney in the office in 7-10 days I performed a history & physical examination of the patient and discussed their management with my nurse practitioner, Ladan Awad. I reviewed the nurse practitioner's note and agree with the documented findings and plan of care. Lung sounds are positive for scattered wheezes. The findings and the impression was discussed with the patient. I attest to the documentation by the nurse practitioner. Time with Patient: Less than 30
--- NOTE | 2020-03-07 23:56 | P.DS ---
Providers Date of admission: 03/01/20 13:23 Expected date of discharge: 03/06/20 Attending physician: Tres Mina Consults: 03/01/20 13:23 Consult Physician Routine Consulting Provider: Anthony Sheppard Consult Reason/Comments: Pneumonia Do you want consulting provider notified?: Yes 03/01/20 17:27 Consult Physician Routine Consulting Provider: Kehinde Rutherford Consult Reason/Comments: Lung cancer Do you want consulting provider notified?: Yes 03/05/20 07:13 Consult Physician Routine Consulting Provider: Jose Luis Cramen Consult Reason/Comments: nocturnal enuresis Do you want consulting provider notified?: Yes Primary care physician: Roxie Melendez [facility] Course: Chief Complaint: Cough History present complaint: This is a pleasant 79-year-old patient of Dr. Roxie Melendez. Chronic stable medical conditions include coronary artery disease, CHF with EF of 50-65%, moderate aortic stenosis with sclerosis, COPD, GERD, hyperlipidemia, hyperten jarrod, primary [place] arthritis,(s) sleep apnea, hypothyroid. 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 treated with chemotherapy -being followed with Dr. Rutherford.. History of Grabiel fundoplication, As in the past has had small bowel obstruction with resection colostomy and reversal of the same. Also had prostate cancer treated with radiation.. Patient was recently in the hospital on February 25 with a fall. Found to have right lateral fifth and sixth rib fracture. Sent home from the ER. Patient presents with worsening cough. Sputum yellow-green in color. Tired. Appetite is okay. Some shortness of breath and wheezing. Checks x-ray showing infiltrate. Chest CTA shows-shows venous prominence versus pneumonitis. Tiny gallstones noted. Admitted with pneumonia-started on ceftriaxone. COPD exacerbation. Steroids bronchodilators added.underwent a bronchoscopy and lavage-felt better following that. Found to have severe inflammation and secretions. Today-Feeling better. Appetite better. Cleared by pulmonary. Medications discussed with the patient. Questions answered. Bronchial lavage cultures- pending. Dr. Valdovinos will follow the patient as an outpatient. Discussion and discharge planning more than 35 minutes Consultation: Dr. Aguilar from pulmonary Dr. Valdovinos from urology Dr. [place]ellin from oncology Physical examination: VITAL SIGNS: 97.7, 68, 18, 156/95, 92% on room air GENERAL: Sitting or chills, more comfortable EYES: Pupils equal. Conjunctiva normal. HEENT: External appearance of nose and ears normal, oral cavity dry with NG tube. NECK: JVD not raised; masses not palpable. HEART: First and second heart sounds are normal; no edema. LUNGS: Respiratory rate increased, decreased breath sounds, minimal wheezing ABDOMEN: Soft, distended, hyperactive bowel sounds, mildly tender, liver spleen not palpable, no masses palpable. PSYCH: Alert and oriented x3; mood and affect normal. INVESTIGATIONS, reviewed in the clinical context: White count and hemoglobin 11.9 potassium 4.5 bun 32 crit 138 Bronchial cultures-pending Previous testing White count 6.3 hemoglobin 12 platelets 182 bun 27 creatinine 1.26 Chest x-ray film reviewed by me shows infiltrate, also pneumonitis Computed tomography scan chest-results noted including right fifth and sixth left fracture Total PSA is less than 0.1 Assessment: -Pneumonia, suspect gram-negative organism, POA -Significant congested in the lungs-post bronchoscopy with lavage -Right fifth and sixth rib fracture 4 days prior to admission -Chronic diverticulosis, asymptomatic -Chronic Grabiel fundoplication, -Coronary artery disease with a prior history of stent -Stage IV adenocarcinoma of the lung on chemotherapy -Normocytic anemia likely secondary to malignancy and chemotherapy -Acute COPD exacerbation in an [id number] -Hypothyroidism -Essential hypertension -Hyperlipidemia -Obstructive sleep apnea -Chronic congestive heart failure from diastolic dysfunction EF 50-60% -Moderate aortic stenosis with sclerosis nonrheumatic -Chronic kidney disease. 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 - Disposition: Home Patient Condition at Discharge: Stable Plan - Discharge Summary New Discharge Prescriptions: New Oxymetazoline 0.05% Nasl [place] [Afrin 0.05% Nasal [place]] 3 spray NASAL BID #1 bottle Cefuroxime Axetil [Ceftin] 500 mg PO BID 3 Days #6 tab guaiFENesin [Mucinex] 1,200 mg PO Q12HR tablet.er amLODIPine [Norvasc] 10 mg PO DAILY #30 tab predniSONE 10 mg PO DAILY #30 tab Budesonide [Pulmicort] 1 mg INHALATION RT-BID #60 ml Lisinopril-Hctz 10-12.5 mg [Zestoretic 10-12.5] 1 each PO DAILY #30 tab Ipratropium-Albuterol Nebulize [Duoneb 0.5 mg-3 mg/3 ml Soln] 0 ml INHALATION QID #120 neb Continue Levothyroxine Sodium [Synthroid] 50 mcg PO DAILY FLUoxetine HCL [PROzac] 20 mg PO HS Tamsulosin [Flomax] 0.4 mg PO HS Omeprazole [PriLOSEC] 40 mg PO HS Folic Acid 1 mg PO HS predniSONE 5 mg PO DAILY Fluticasone/Umeclidin/Vilanter [Trelegy Ellipta 100-62.5-25] 1 puff INHALATION RT-DAILY Metoprolol Tartrate [Lopressor] 25 mg PO BID Rivaroxaban [Xarelto] 20 mg PO HS Cholecalciferol [Vitamin D3 (25 Mcg = 1000 Iu)] 1,000 unit PO DAILY L.acidoph,Paracasei, B.lactis [Probiotic] 1 tab PO DAILY Discontinued Fluticasone Nasal [place] [Flonase Nasal [place]] 1 spray EA NOSTRIL DAILY PRN PRN Reason: Allergy Symptoms Lisinopril [Zestril] 2.5 mg PO DAILY Discharge Medication List FLUoxetine HCL [PROzac] 20 mg PO HS 08/05/14 [History] Levothyroxine Sodium [Synthroid] 50 mcg PO DAILY 08/05/14 [History] Omeprazole [PriLOSEC] 40 mg PO HS 08/05/14 [History] Tamsulosin [Flomax] 0.4 mg PO HS 08/05/14 [History] Folic Acid 1 mg PO HS 02/12/18 [History] Fluticasone/Umeclidin/Vilanter [Trelegy Ellipta 100-62.5-25] 1 puff INHALATION RT-DAILY 11/18/19 [History] predniSONE 5 mg PO DAILY 11/18/19 [History] Cholecalciferol [Vitamin D3 (25 Mcg = 1000 Iu)] 1,000 unit PO DAILY 03/01/20 [History] L.acidoph,Paracasei, B.lactis [Probiotic] 1 tab PO DAILY 03/01/20 [History] Metoprolol Tartrate [Lopressor] 25 mg PO BID 03/01/20 [History] Rivaroxaban [Xarelto] 20 mg PO HS 03/01/20 [History] Budesonide [Pulmicort] 1 mg INHALATION RT-BID #60 ml 03/06/20 [Rx] Cefuroxime Axetil [Ceftin] 500 mg PO BID 3 Days #6 tab 03/06/20 [Rx] Ipratropium-Albuterol Nebulize [Duoneb 0.5 mg-3 mg/3 ml Soln] 0 ml INHALATION QID #120 neb 03/06/20 [Rx] Lisinopril-Hctz 10-12.5 mg [Zestoretic 10-12.5] 1 each PO DAILY #30 tab 03/06/20 [Rx] Oxymetazoline 0.05% Nasl [place] [Afrin 0.05% Nasal [place]] 3 spray NASAL BID #1 bottle 03/06/20 [Rx] amLODIPine [Norvasc] 10 mg PO DAILY #30 tab 03/06/20 [Rx] guaiFENesin [Mucinex] 1,200 mg PO Q12HR tablet.er 03/06/20 [Rx] predniSONE 10 mg PO DAILY #30 tab 03/06/20 [Rx] Follow up Appointment(s)/Referral(s): Roxie Melendez DO [Primary Care Provider] - 1-2 days (PLEASE CALL OFFICE TO SCHEDULE YOUR APPOINTMENT. THANK YOU) Narciso Aguilar DO [Doctor of Osteopathic Medicine] - 03/20/20 1:00 pm () Kehinde Rutherford MD [STAFF PHYSICIAN] - 03/25/20 9:30 am Patient Instructions/Handouts: Pneumonia (DC) Discharge Disposition: HOME SELF-CARE
== END 2020-03-06 12:36 | disposition home or self-care (01) | DRG 178 ==
LOC: EC 09:26 → 4SSUR 13:23
PROVIDERS: ADMIT Hospitalist; ATTEND Hospitalist
PROC: 0B9D8ZZ Drainage of Right Middle Lung Lobe, Via Natural or Artificial Opening Endoscopic (ICD-10-PCS; principal; 2020-03-05 07:30)
DX: J15.6 Pneumonia due to other Gram-negative bacteria (principal); S22.41XA Multiple fractures of ribs, right side, initial encounter for closed fracture; C34.11 Malignant neoplasm of upper lobe, right bronchus or lung; I13.0 Hypertensive heart and chronic kidney disease with heart failure and stage 1 through stage 4 chronic kidney disease, or unspecified chronic kidney disease; I50.32 Chronic diastolic (congestive) heart failure; J44.0 Chronic obstructive pulmonary disease with (acute) lower respiratory infection; J44.1 Chronic obstructive pulmonary disease with (acute) exacerbation; Z87.891 Personal history of nicotine dependence; Z85.46 Personal history of malignant neoplasm of prostate; Z20.828 Contact with and (suspected) exposure to other viral communicable diseases; D63.0 Anemia in neoplastic disease; E03.9 Hypothyroidism, unspecified; E78.5 Hyperlipidemia, unspecified; G47.33 Obstructive sleep apnea (adult) (pediatric); H53.2 Diplopia; I25.10 Atherosclerotic heart disease of native coronary artery without angina pectoris; I25.2 Old myocardial infarction; I35.0 Nonrheumatic aortic (valve) stenosis; I48.91 Unspecified atrial fibrillation; J39.8 Other specified diseases of upper respiratory tract; J98.09 Other diseases of bronchus, not elsewhere classified; K21.9 Gastro-esophageal reflux disease without esophagitis; K57.90 Diverticulosis of intestine, part unspecified, without perforation or abscess without bleeding; M19.91 Primary osteoarthritis, unspecified site; N18.2 Chronic kidney disease, stage 2 (mild); N39.3 Stress incontinence (female) (male); N39.44 Nocturnal enuresis; Z79.01 Long term (current) use of anticoagulants; Z79.890 Hormone replacement therapy; Z79.899 Other long term (current) drug therapy; Z80.0 Family history of malignant neoplasm of digestive organs; Z80.1 Family history of malignant neoplasm of trachea, bronchus and lung; Z80.7 Family history of other malignant neoplasms of lymphoid, hematopoietic and related tissues; Z85.828 Personal history of other malignant neoplasm of skin; Z87.01 Personal history of pneumonia (recurrent); Z92.21 Personal history of antineoplastic chemotherapy; Z92.3 Personal history of irradiation; Z95.5 Presence of coronary angioplasty implant and graft; Z98.42 Cataract extraction status, left eye; Z79.52 Long term (current) use of systemic steroids; Z90.49 Acquired absence of other specified parts of digestive tract; G47.30 Sleep apnea, unspecified; Z99.89 Dependence on other enabling machines and devices; Z91.81 History of falling
CPT/HCPCS: 31624; 36415; 71045; 71046; 71275; 80053; 83605; 83735; 83880; 84145; 84153; 84484; 85025; 85379; 85610; 85730; 87040; 87070; 87102; 87116; 87205; 87206; 87252; 87496; 87498; 87502; 87529; 87634; 87798; 88108; 88305; 89050; 93005; 94640; 94760; 96361; 96365; 96375; 99285

== ENCOUNTER 2020-04-05 19:48 | Inpatient (IN) | payer MEDICARE ==
[2020-04-05] MEDS ORDERED: SODIUM CHLORIDE 0.9% 500 ML 500 ML IV STA (20:10)
--- NOTE | 2020-04-05 20:15 | ED ---
General Adult HPI - General Chief complaint: Recheck/Abnormal Lab/Rx Stated complaint: High BP Time Seen by Provider: 04/05/20 20:00 Source: patient Mode of arrival: ambulatory Limitations: no limitations - History of Present Illness Initial comments: Dictation was produced using [employer] dictation software. please excuse any grammatical, word or spelling errors. This patient was cared for during a federal and state declared state of emergency secondary to Covid 19 Chief Complaint: 80-year-old male presents with hypotension History of Present Illness: 80-year-old male who has past nuchal history of hypertension, atrial fibrillation, COPD and pneumonia. Chin states that he was recently admitted to the hospital for pneumonia. During that hospital stay patient had really have blood pressures with systolic pressure in the 200. He had at that time his blood pressure medications increased. He had a relatively benign hospital course. Since being discharged he is known that he's been having low blood pressures. He reports that he had his blood pressure medications decreased after having continuous high blood pressures. Patient takes Flomax, metoprolol, amlodipine. Patient has no pain complaints at this time. He does report feeling lightheaded especially when he exerts himself or when he stands up. Patient and his have been checking her blood pressures at home with consistent systolics measuring in the 90s. This is low compared to patient's baseline. He does have history of valvular disease. The ROS documented in this emergency department record has been reviewed and confirmed by me. Those systems with pertinent positive or negative responses have been documented in the HPI. All other systems are other negative and/or noncontributory. PHYSICAL EXAM: General Impression: Alert and oriented x3, not in acute distress HEENT: Normocephalic atraumatic, extra-ocular movements intact, pupils equal and reactive to light bilaterally, mucous membranes moist. Cardiovascular: Heart regular rate and rhythm Chest: Able to complete full sentences, no retractions, no tachypnea Abdomen: abdomen soft, non-tender, non-distended, no organomegaly Musculoskeletal: Pulses present and equal in all extremities, no peripheral edema Motor: no focal deficits noted Neurological: CN II-XII grossly intact, no focal motor or sensory deficits noted Skin: Intact with no visualized rashes Psych: Normal affect and mood ED course: 80-year-old male presents to hypotension. Vital signs in triage his blood pressure of 89/55, rest of vital signs within acceptable limits. Admits that his blood pressure was rechecked with systolic measuring 129. Laboratory evaluation obtained. CBC is unremarkable. Hemoglobin is 11.8 which is around patient's baseline. Coag panel is negative. Metabolic panel shows anion gap acidosis. Patient's lactic acid level is elevated at 3.5. Magnesium 1.4. Rest metabolic panel is unremarkable. X-ray shows interstitial pulmonary infiltrates in the left mid and lower lung field. Considering patient's complete clinical picture with lactic acidosis, hypotension and positive radiogr aphic images concern of pneumonia sepsis. Patient given intravenous fluids based on ideal body weight. Patient started on pneumonia antibiotics. Patient will be admitted to [facility]. I believe patient's symptoms are multifactorial. We will hold patient's blood pressure medications for now. EKG interpretation: Ventricular rate 56, sinus bradycardia, NV interval 164, QRS 96, QTC 445. No NV prolongation, no QTC prolongation, no ST or T-wave changes noted. EKG compared to 03/01/2020 showing no changes. Overall, this EKG is unremarkable - Related Data Home Medications Medication Instructions Recorded Confirmed FLUoxetine HCL [PROzac] 20 mg PO HS 08/05/14 03/01/20 Levothyroxine Sodium [Synthroid] 50 mcg PO DAILY 08/05/14 03/01/20 Omeprazole [PriLOSEC] 40 mg PO HS 08/05/14 03/01/20 Tamsulosin [Flomax] 0.4 mg PO HS 08/05/14 03/01/20 Folic Acid 1 mg PO HS 02/12/18 03/01/20 Fluticasone/Umeclidin/Vilanter 1 puff INHALATION RT-DAILY 11/18/19 03/01/20 [Trelegy Ellipta 100-62.5-25] predniSONE 5 mg PO DAILY 11/18/19 03/01/20 Cholecalciferol [Vitamin D3 (25 1,000 unit PO DAILY 03/01/20 03/01/20 Mcg = 1000 Iu)] L.acidoph,Paracasei, B.lactis 1 tab PO DAILY 03/01/20 03/01/20 [Probiotic] Metoprolol Tartrate [Lopressor] 25 mg PO BID 03/01/20 03/01/20 Rivaroxaban [Xarelto] 20 mg PO HS 03/01/20 03/01/20 Previous Rx's Medication Instructions Recorded Budesonide [Pulmicort] 1 mg INHALATION RT-BID #60 ml 03/06/20 Cefuroxime Axetil [Ceftin] 500 mg PO BID 3 Days #6 tab 03/06/20 Ipratropium-Albuterol Nebulize 0 ml INHALATION QID #120 neb 03/06/20 [Duoneb 0.5 mg-3 mg/3 ml Soln] Lisinopril-Hctz 10-12.5 mg 1 each PO DAILY #30 tab 03/06/20 [Zestoretic 10-12.5] Oxymetazoline 0.05% Nasl [place] 3 spray NASAL BID #1 bottle 03/06/20 [Afrin 0.05% Nasal [place]] amLODIPine [Norvasc] 10 mg PO DAILY #30 tab 03/06/20 guaiFENesin [Mucinex] 1,200 mg PO Q12HR tablet.er 03/06/20 predniSONE 10 mg PO DAILY #30 tab 03/06/20 Allergies Allergy/AdvReac Type Severity Reaction Status Date / Time No Known Allergies Allergy Verified 04/05/20 19:57 Review of Systems ROS Statement: Those systems with pertinent positive or pertinent negative responses have been documented in the HPI. ROS Other: All systems not noted in ROS Statement are negative. Past Medical History Past Medical History: Atrial Fibrillation, Asthma, Coronary Artery Disease (CAD), Cancer, COPD, GERD/Reflux, Hyperlipidemia, Hypertension, Osteoarthritis (OA), Pneumonia, Respiratory Disorder, Sleep Apnea/CPAP/BIPAP, Thyroid Disorder Additional Past Medical History / Comment(s): Lung Cancer, currently on hold of treatment, last chemo was in November/2019, to have chemo again in 2 months. diverticular disease, SBO with resection/colostomy/reversal of colostomy, prostate cancer with radiation tx, skin cancer removed from face, hypothyroid History of Any Multi-Drug Resistant Organisms: None Reported Past Surgical History: Bowel Resection, Heart Catheterization, Heart Catheterization With Stent, Orthopedic Surgery, Tonsillectomy Additional Past Surgical History / Comment(s): 01/07/19 bronchoscopy with BAL, past bronchoscopies/bx, PCI with stent 2006, bilateral reconstructive ear surgery and gland removed under jaw, bowel resection d/t rupture with colostomy later reversed, L cataract removal, demetra fundoloplasty, bilateral total shoulders/knees, L knee arthroscopy x 2, EGD, colonoscopy, prostate bx, bilateral exciscion gynecomastia, skin cancer removals. Past Anesthesia/Blood Transfusion Reactions: No Reported Reaction, Motion Sickness Date of Last Stent Placement:: 2006 Past Psychological History: No Psychological Hx Reported Smoking Status: Former smoker Past Alcohol Use History: Occasional Past Drug Use History: None Reported - Past Family History Mother Family Medical History: Cancer Additional Family Medical History / Comment(s): MULTIPLE MEYLOMA Father Family Medical History: Cancer Additional Family Medical History / Comment(s): LUNG CANCER Sister(s) Family Medical History: Cancer Additional Family Medical History / Comment(s): sister had rectal cancer. Son(s) Family Medical History: Cancer Additional Family Medical History / Comment(s): Son has hodgkins lymphoma General Exam Limitations: no limitations Course Vital Signs 04/05/20 04/05/20 04/05/20 19:55 20:03 20:25 Temperature 98.1 F Pulse Rate 62 56 L 55 L Respiratory 16 18 16 Rate Blood Pressure 89/55 129/74 99/53 O2 Sat by Pulse 95 98 99 Oximetry 04/05/20 04/05/20 20:40 21:20 Temperature Pulse Rate 56 L 60 Respiratory 18 16 Rate Blood Pressure 107/64 126/75 O2 Sat by Pulse 99 97 Oximetry Medical Decision Making - Lab Data Result diagrams: 04/05/20 20:38 04/05/20 20:38 Lab Results 04/05/20 04/05/20 04/05/20 Range/Units 20:38 20:38 20:38 WBC 5.6 (3.8-10.6) k/uL RBC 3.92 L (4.30-5.90) m/uL Hgb 11.8 L (13.0-17.5) gm/dL Hct 35.4 L (39.0-53.0) % MCV 90.3 (80.0-100.0) fL MCH 30.0 (25.0-35.0) pg MCHC 33.3 (31.0-37.0) g/dL RDW 14.3 (11.5-15.5) % Plt Count 275 (150-450) k/uL PT 10.6 (9.0-12.0) sec INR 1.0 (<1.2) APTT 29.6 (22.0-30.0) sec Sodium 134 L (137-145) mmol/L Potassium 4.7 (3.5-5.1) mmol/L Chloride 104 (98-107) mmol/L Carbon Dioxide 13 L (22-30) mmol/L Anion Gap 17 mmol/L BUN 33 H (9-20) mg/dL Creatinine 1.78 H (0.66-1.25) mg/dL Est GFR (CKD-EPI)AfAm 40 (>60 ml/min/1.73 sqM) Est GFR (CKD-EPI)NonAf 35 (>60 ml/min/1.73 sqM) Glucose 115 H (74-99) mg/dL Plasma Lactic Acid Vel (0.7-2.0) mmol/L Calcium 9.6 (8.4-10.2) mg/dL Magnesium 1.4 L (1.6-2.3) mg/dL Total Bilirubin 0.3 (0.2-1.3) mg/dL AST 20 (17-59) U/L ALT 14 (4-49) U/L Alkaline Phosphatase 88 (38-126) U/L Troponin I (0.000-0.034) ng/mL Total Protein 6.3 (6.3-8.2) g/dL Albumin 3.8 (3.5-5.0) g/dL 04/05/20 04/05/20 Range/Units 20:38 20:38 WBC (3.8-10.6) k/uL RBC (4.30-5.90) m/uL Hgb (13.0-17.5) gm/dL Hct (39.0-53.0) % MCV (80.0-100.0) fL MCH (25.0-35.0) pg MCHC (31.0-37.0) g/dL RDW (11.5-15.5) % Plt Count (150-450) k/uL PT (9.0-12.0) sec INR (<1.2) APTT (22.0-30.0) sec Sodium (137-145) mmol/L Potassium (3.5-5.1) mmol/L Chloride (98-107) mmol/L Carbon Dioxide (22-30) mmol/L Anion Gap mmol/L BUN (9-20) mg/dL Creatinine (0.66-1.25) mg/dL Est GFR (CKD-EPI)AfAm (>60 ml/min/1.73 sqM) Est GFR (CKD-EPI)NonAf (>60 ml/min/1.73 sqM) Glucose (74-99) mg/dL Plasma Lactic Acid Vel 3.5 H* (0.7-2.0) mmol/L Calcium (8.4-10.2) mg/dL Magnesium (1.6-2.3) mg/dL Total Bilirubin (0.2-1.3) mg/dL AST (17-59) U/L ALT (4-49) U/L Alkaline Phosphatase (38-126) U/L Troponin I <0.012 (0.000-0.034) ng/mL Total Protein (6.3-8.2) g/dL Albumin (3.5-5.0) g/dL Disposition Clinical Impression: Hypotension, Abnormal x-ray Disposition: ADMITTED IP TO THIS [facility] Condition: Fair Referrals: Roxie Melendez DO [Primary Care Provider] - 1-2 days Decision Time: 21:42
[2020-04-05 20:59] LABS: Albumin 3.8 g/dL (3.5-5.0); Calcium 9.6 mg/dL (8.4-10.2); Magnesium 1.4 mg/dL (1.6-2.3); Potassium 4.7 mmol/L (3.5-5.1); Total Bilirubin 0.3 mg/dL (0.2-1.3); Total Protein 6.3 g/dL (6.3-8.2)
--- NOTE | 2020-04-05 21:12 | XR ---
EXAMINATION TYPE: XR chest 2V DATE OF EXAM: 04/05/2020 COMPARISON: 03/02/2020 HISTORY: Lung cancer. Hypotension. TECHNIQUE: 2 views FINDINGS: There is some coarse interstitial density in the left lower lobe. There is no heart failure . There is bilateral shoulder prosthesis. Heart size is normal. There is no heart failure. There is s light blunting left costophrenic angle. There are chest leads. Bony thorax is intact. IMPRESSION: Interstitial pulmonary infiltrates with pleural thickening in the left mid and lower lung field not significantly different than recent exam. No heart failure seen.
[2020-04-05 21:25] LABS: HCT 35.4 % (39.0-53.0); HGB 11.8 gm/dL (13.0-17.5); MCHC 33.3 g/dL (31.0-37.0); MCV 90.3 fL (80.0-100.0); Mean Platelet Volume 7.2; Platelet Count 275 k/uL (150-450); RBC 3.92 m/uL (4.30-5.90); RDW 14.3 % (11.5-15.5); WBC 5.6 k/uL (3.8-10.6)
[2020-04-05 21:32] LABS: Partial Thromboplastin Time 29.6 sec (22.0-30.0); Prothrombin Time 10.6 sec (9.0-12.0)
[2020-04-05] MEDS ORDERED: SODIUM CHLORIDE 0.9% 1,000 ML IV STA ×2 (21:35→21:40)
[2020-04-05] MEDS ORDERED: MAGNESIUM OXIDE 400 MG TAB PO STA (21:36)
[2020-04-05 21:40] LABS: Anisocytosis (M) Present; Band Neutrophils % 7 %; Monocytes # (M) 0.62 k/uL (0-1.0); Neutrophils % (M) 57 %; Nucleated Red Blood Cells 0 /100 WBC (0-0); Polychromasia Present; Total Cells Counted 100
[2020-04-05] MEDS ORDERED: AZITHROMYCIN 500 MG in SODIUM CHLORIDE 0.9% 250 ML IVPB STA (21:40)
[2020-04-05] MEDS ORDERED: ACETAMINOPHEN TAB 325 MG TAB PO PRN (21:42)
[2020-04-05] MEDS ORDERED: NALOXONE 0.4 MG/ML 1 ML VIAL IV PRN (21:42)
[2020-04-05] MEDS: SODIUM CHLORIDE 0.9% 1,000 ML IV SCH (23:11)
[2020-04-06] MEDS: SODIUM CHLORIDE 0.9% 1,000 ML IV SCH ×2 (07:38→13:15)
[2020-04-06] MEDS ORDERED: guaiFENesin 600 MG TABLET.ER PO PRN (09:50)
[2020-04-06] MEDS ORDERED: OXYMETAZOLINE 0.05% NASL SPRAY 1 SPRAY BOTTLE NASAL PRN (09:50)
[2020-04-06] MEDS ORDERED: LEVOTHYROXINE 50 MCG TAB PO SCH (10:00)
[2020-04-06] MEDS: IPRATROPIUM-ALBUTEROL 3 ML NEB INHALATION PRN ×2 (11:52→15:05)
[2020-04-06 12:04] VITALS: RESP 16; TEMP 97.6
--- NOTE | 2020-04-06 13:07 | P.CNPUL ---
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 And subsequently in July 2018 computed tomography scan of the chest showed reoccurrence of malignancy with left pleural effusion with i nflammatory changes in the left lower lung, repeat bronchoscopy in 2018 with a transbronchial biopsy showed poorly differentiated adenocarcinoma, and patient was treated with Opdivo. His most recent computed tomography scan of the chest/abdomen and pelvis from December 2019 revealed no evidence of progression of pulmonary adenocarcinoma, showing subpleural nodules in the right lung having decreased slightly in size, no new nodules, pleural parenchymal thickening in the left lung unchanged, and no evidence for metastatic disease to the abdomen and pelvis. Patient had a recent hospitalization from 03/01/2020 to 03/07/2020 for shortness of breath related to acute exacerbation of COPD with purulent tracheobronchitis and possible bronchopneumonia in the left lower lobe. Note that the pro-calcitonin level was negative at 0.04, patient underwent bronchoscopy with bronchoalveolar lavage on 03/05/2020, and bronchial lavage cultures showed no growth. Patient was medically treated, and discharged home in stable condition on 03/07/2020. Patient also has underlying history of COPD his baseline FEV1 is 69% of predicted based on the spirometer done in 2019. He has been off treatment for his stage IV adenocarcinoma of the lung, without evidence of interval progression however he remains under surveillance every 3-4 months with repeated CAT scans. Most recent MRI of the brain showed no evidence of any metastasis. During his previous admission patient was hypertensive with systolic blood pressure in the 200s, and was started on Norvasc 10 mg daily, Zestoretic 10-12.5 milligrams daily, in addition to metoprolol. On only 2019 patient came into the hospital with complaints of lightheadedness, and when he checked his blood pressure a was 89/50, he denied any fever or chills, denied any cough or congestion, no hemoptysis, no complaints of chest pain, no lower extremity swelling. Does have a history of atrial fibrillation on Xarelto, currently in sinus bradycardia, and valvular heart disease with moderate to severe aortic stenosis, mild MR, mild TR and EF of 45-50% based on the most recent echocardiogram from 11/19/2019. Chest x-ray was completed showing interstitial pulmonary infiltrates with pleural thickening in the left mid and lower lung field not significantly different than his most recent exam from 03/02/2020, no evidence of heart failure. Lab work showed white blood cell count of 5.6, hemoglobin of 11.8, INR is 1.0, sodium is 134, potassium is 4.7, chloride is 104, CO2 is 13, BUN is 33 creatinine is 1.78, plasma lactic acid was 3.5, magnesium was 1.4, troponin was negative at 0.012, LFTs were within normal limits. Patient has been afebrile, she was given to a half liters and fluid boluses and his maintenance IV fluids infusing at a rate of 75 ML per hour, he was started on empiric antibiotics with the concern of possibility of left lower lobe pneumonia. On today's examination patient is calm and comfortable, he sitting up on the edge of the bed, room air pulse ox 95%, blood pressures have improved and up to 165/89, all of his blood pressure does remain on hold, eyes any fever or chills, no chest tightness, no cough, he has been afebrile, resp irations are nonlabored. Review of Systems All systems: negative Constitutional: Reports fatigue, Denies chills, Denies fever Eyes: denies blurred vision, denies pain Ears, nose, mouth and throat: Denies headache, Denies sore throat Cardiovascular: Denies chest pain, Denies shortness of breath Respiratory: Denies cough Gastrointestinal: Denies abdominal pain, Denies diarrhea, Denies nausea, Denies vomiting Musculoskeletal: Denies myalgias Integumentary: Denies pruritus, Denies rash Neurological: Denies numbness, Denies weakness Psychiatric: Denies anxiety, Denies depression Endocrine: Denies fatigue, Denies weight change Past Medical History Past Medical History: Atrial Fibrillation, Asthma, Coronary Artery Disease (CAD), Cancer, COPD, GERD/Reflux, Hyperlipidemia, Hypertension, Osteoarthritis (OA), Pneumonia, Respiratory Disorder, Sleep Apnea/CPAP/BIPAP, Thyroid Disorder Additional Past Medical History / Comment(s): Lung Cancer, currently on hold of treatment, last chemo was in November/2019, diverticular disease, SBO with resection/colostomy/reversal of colostomy, prostate cancer with radiation tx, skin cancer removed from face, hypothyroid History of Any Multi-Drug Resistant Organisms: None Reported Past Surgical History: Bowel Resection, Heart Catheterization, Heart Catheterization With Stent, Orthopedic Surgery, Tonsillectomy Additional Past Surgical History / Comment(s): 01/07/19 bronchoscopy with BAL, past bronchoscopies/bx, PCI with stent 2006, bilateral reconstructive ear surgery and gland removed under jaw, bowel resection d/t rupture with colostomy later reversed, L cataract removal, demetra fundoloplasty, bilateral total shoulders/knees, L knee arthroscopy x 2, EGD, colonoscopy, prostate bx, bilateral exciscion gynecomastia, skin cancer removals. Past Anesthesia/Blood Transfusion Reactions: No Reported Reaction, Motion Sickness Date of Last Stent Placement:: 2006 Past Psychological History: No Psychological Hx Reported Additional Psychological History / Comment(s): Pt resides with his spouse. He has a nebulizer. He drives. Smoking Status: Former smoker Past Alcohol Use History: Occasional Additional Past Alcohol Use History / Comment(s): SMOKED OCCASIONAL CIGAR. STARTED SMOKING AT AGE 14 ,SMOKED TILL 1982 Past Drug Use History: None Reported - Past Family History Mother Family Medical History: Cancer Additional Family Medical History / Comment(s): MULTIPLE MEYLOMA Father Family Medical History: Cancer Additional Family Medical History / Comment(s): LUNG CANCER Sister(s) Family Medical History: Cancer Additional Family Medical History / Comment(s): sister had rectal cancer. Son(s) Family Medical History: Cancer Additional Family Medical History / Comment(s): Son has hodgkins lymphoma Medications and Allergies Home Medications Medication Instructions Recorded Confirmed Type FLUoxetine HCL [PROzac] 20 mg PO HS 08/05/14 04/05/20 History Levothyroxine Sodium [Synthroid] 50 mcg PO DAILY 08/05/14 04/05/20 History Omeprazole [PriLOSEC] 40 mg PO HS 08/05/14 04/05/20 History Tamsulosin [Flomax] 0.4 mg PO HS 08/05/14 04/05/20 History Folic Acid 1 mg PO HS 02/12/18 04/05/20 History Fluticasone/Umeclidin/Vilanter 1 puff INHALATION RT-DAILY 11/18/19 04/05/20 History [Trelegy Ellipta 100-62.5-25] predniSONE 5 mg PO DAILY 11/18/19 04/05/20 History Cholecalciferol [Vitamin D3 (25 1,000 unit PO DAILY 03/01/20 04/05/20 History Mcg = 1000 Iu)] L.acidoph,Paracasei, B.lactis 1 tab PO DAILY 03/01/20 04/05/20 History [Probiotic] Metoprolol Tartrate [Lopressor] 50 mg PO BID 03/01/20 04/05/20 History Rivaroxaban [Xarelto] 20 mg PO HS 03/01/20 04/05/20 History Budesonide [Pulmicort] 1 mg INHALATION RT-BID #60 ml 03/06/20 Rx Lisinopril-Hctz 10-12.5 mg 1 each PO DAILY #30 tab 03/06/20 04/05/20 Rx [Zestoretic 10-12.5] Ipratropium-Albuterol Nebulize 3 ml INHALATION QID PRN 04/05/20 04/05/20 History [Duoneb 0.5 mg-3 mg/3 ml Soln] Montelukast Sodium [Singulair] 10 mg PO HS 04/05/20 04/05/20 History Oxymetazoline 0.05% Nasl [place] 3 spray NASAL BID PRN 04/05/20 04/05/20 History [Afrin 0.05% Nasal [place]] amLODIPine [Norvasc] 5 mg PO DAILY 04/05/20 04/05/20 History guaiFENesin [Mucinex] 1,200 mg PO Q12HR PRN 04/05/20 04/05/20 History Allergies Allergy/AdvReac Type Severity Reaction Status Date / Time No Known Allergies Allergy Verified 04/05/20 22:39 Physical Exam Vitals: Vital Signs Temp Pulse Pulse Pulse Pulse Resp BP 04/06/20 11:59 77 04/06/20 11:54 76 04/06/20 11:13 97.6 F 64 16 04/06/20 04:37 97.1 F L 67 18 04/05/20 23:00 97.7 F 70 18 04/05/20 22:44 97.8 F 64 18 126/73 04/05/20 21:55 98.5 F 60 18 125/92 04/05/20 21:35 61 62 55 L 20 04/05/20 21:20 60 16 126/75 04/05/20 20:40 56 L 18 107/64 04/05/20 20:25 55 L 16 99/53 04/05/20 20:03 56 L 18 129/74 04/05/20 19:55 98.1 F 62 16 89/55 BP BP BP Pulse Ox 04/06/20 11:59 04/06/20 11:54 04/06/20 11:13 165/89 95 04/06/20 04:37 135/71 96 04/05/20 23:00 139/80 96 04/05/20 22:44 98 04/05/20 21:55 100 04/05/20 21:35 110/73 121/71 114/68 04/05/20 21:20 97 04/05/20 20:40 99 04/05/20 20:25 99 04/05/20 20:03 98 04/05/20 19:55 95 Intake and Output 04/05/20 04/06/20 04/06/20 22:59 06:59 14:59 Intake Total 650 Output Total 800 800 Balance -150 -800 Intake: Intake, IV Titration 650 Amount Sodium Chloride 0.9% 1, 650 000 ml @ 130 mls/hr IV . Q7H42M [facility] Rx#:[id number] Output: Urine 800 800 Other: Voiding Method Toilet Urinal Weight 98.43 kg 98.43 kg GENERAL EXAM: Alert, very pleasant, 80-year-old white male, on room air, with a pulse ox of 95%, comfortable in no apparent distress. HEAD: Normocephalic/atraumatic. EYES: Normal reaction of pupils, equal size. Conjunctiva pink, sclera white. NOSE: Clear with pink turbinates. THROAT: No erythema or exudates. NECK: No masses, no JVD, no thyroid enlargement, no adenopathy. CHEST: No chest wall deformity. Symmetrical expansion. LUNGS: Equal air entry with no crackles, wheeze, rhonchi or dullness. CVS: Regular rate and rhythm, normal S1 and S2, no gallops, no murmurs, no rubs ABDOMEN: Soft, nontender. No hepatosplenomegaly, normal bowel sounds, no guarding or rigidity. EXTREMITIES: No clubbing, no edema, no cyanosis, 2+ pulses and upper and lower extremities. MUSCULOSKELETAL: Muscle strength and tone normal. SPINE: No scoliosis or deformity SKIN: No rashes CENTRAL NERVOUS SYSTEM: Alert and oriented -3. No focal deficits, tone is normal in all 4 extremities. PSYCHIATRIC: Alert and oriented -3. Appropriate affect. Intact judgment and insight. Results - Laboratory Findings CBC and BMP: 04/05/20 20:38 04/05/20 20:38 PT/INR, D-dimer PT 10.6 sec (9.0-12.0) 04/05/20 20:38 INR 1.0 (<1.2) 04/05/20 20:38 Abnormal lab findings: Abnormal Labs 04/05/20 04/05/20 04/05/20 20:38 20:38 20:38 RBC 3.92 L Hgb 11.8 L Hct 35.4 L Sodium 134 L Carbon Dioxide 13 L BUN 33 H Creatinine 1.78 H Glucose 115 H Plasma Lactic Acid Vel 3.5 H* Magnesium 1.4 L - Diagnostic Findings Chest x-ray: report reviewed, image reviewed Additional studies: EKG reviewed, most recent echocardiogram from October 2019 reviewed Assessment and Plan Plan: Assessment: #1. Hypotension, lightheadedness, likely related to recent increase in blood pressure medications with addition of Norvasc, Zestoretic in addition to metoprolol in view of recent history of hypertension, responded well to IV fluids. No evidence of pulmonary infiltrates, no leukocytosis, to suggest evidence of pneumonia, or infection #2. Mild lactic acidosis, not related to abscess, likely related to dehydration, hypotension related to recent blood pressure medication increase, responded well to IV fluids #3. Acute kidney injury related to hypotension and dehydration #4. Recent history of hospitalization for COPD exacerbation with tracheobronchitis and possible bronchopneumonia, status post bronchoscopy with bronchoalveolar lavage, with negative lavage cultures #5. Known history of metastatic primary pulmonary adenocarcinoma, diagnosed in 2015, initially treated with carboplatin and Alimta, with reoccurrence in [facility] 2018, treated with Opdivo, and most recent CT of the chest/abdomen and pelvis on 01/22/2020 showed no evidence of disease progression, most recent MRI of the brain from 10/24/2019 showed no evidence of metastasis #6. History of paroxysmal atrial fibrillation, currently in sinus bradycardia, on Xarelto #7. History of CAD with previous myocardial infarction and previous stent placement #8. Chronic congestive heart failure with mildly impaired LV function and history of valvular heart disease with moderately severe aortic stenosis, mild MR and mild TR and no evidence of pulmonary hypertension #9. History of hypertension #10. History of sleep apnea syndrome #11. Hypothyroidism #12. Previous to small bowel obstruction and resection, colostomy and colostomy reversal #13. Chronic obstructive pulmonary disease with FEV1 of 69% of predicted, stage II COPD Plan: Chest x-ray has been reviewed, lab work has been reviewed, patient was evaluated along with Dr. Kenney, left lower lobe findings are similar to his most previous chest x-ray from January 2020, no suspicion for underlying pneumonia, or sepsis. Blood pressure has improved with fluid resuscitation, no fever or chi lls, no pulmonary complaints. Hypotension and lightheadedness likely related to his most recent increase in his blood pressure medications and dehydration. Has been stable overnight, from pulmonary perspective he stable for discharge home today with outpatient follow-up with Dr. Aguilar in the office in 7-10 days, no need for antibiotics. He can resume his normal COPD treatments including Trelegy, DuoNeb. I performed a history & physical examination of the patient and discussed their management with my nurse practitioner, Ladan Awad. I reviewed the nurse practitioner's note and agree with the documented findings and plan of care. Lung sounds are positive for diminished breath sounds. The findings and the impression was discussed with the patient. I attest to the documentation by the nurse practitioner. Time with Patient: Greater than 30
[2020-04-06] MEDS ORDERED: METOPROLOL TARTRATE 25 MG TAB PO SCH (13:30)
[2020-04-06] MEDS ORDERED: lisinopriL 5 MG TAB PO SCH (13:30)
[2020-04-06 14:20] VITALS: BP 158/83
[2020-04-06 15:59] VITALS: PULSE 64
[2020-04-06] MEDS ORDERED: BUDESONIDE 1 MG/2 ML NEBU INHALATION SCH (20:00)
[2020-04-06] MEDS ORDERED: FLUoxetine HCL 20 MG CAP PO SCH (21:00)
[2020-04-06] MEDS ORDERED: PANTOPRAZOLE 40 MG TABLET PO SCH (21:00)
[2020-04-06] MEDS ORDERED: RIVAROXABAN 20 MG TAB PO SCH (21:00)
[2020-04-06] MEDS ORDERED: MONTELUKAST 10 MG TAB PO SCH (21:00)
[2020-04-06] MEDS ORDERED: FOLIC ACID 1 MG TAB PO SCH (21:00)
[2020-04-06] MEDS ORDERED: TAMSULOSIN 0.4 MG CAP.ER.24H PO SCH (21:00)
[2020-04-07] MEDS ORDERED: CHOLECALCIFEROL 1,000 UNIT TAB PO SCH (09:00)
--- NOTE | 2020-04-20 11:51 | P.HPIM ---
History of Present Illness H&P Date: 04/06/20 Chief Complaint: Dizziness Patient is a 28-year-old male with a known history of COPD, atrial fibrillation on Xarelto, valvular heart disease with moderate to severe aortic stenosis, mild MR and mild TR and ejection fraction 45 to 50%., Metastatic adenocarcinoma of the lung diagnosed in 2016 with diagnostic thoracentesis with cytology positive for adenocarcinoma, recent admission with shortness of breath and CT abdomen chest/abdomen pelvis in December 2019 revealed no evidence of progression of pulmonary adenocarcinoma. Patient underwent bronchoscopy with bronchoalveolar cultures on 03/05/2020 showed no growth. Patient was treated medically and discharged home on 03/07/2020. During hospital stay patient did have high blood pressure with SBP greater than 200 and the blood pressure medications were increased at this time. Patient states that since discharge he has been having low blood pressures and dizziness. Patient also takes Flomax metoprolol and amlodipine. Otherwise denied any fever or chills. Patient felt lightheaded especially when he exerts himself and when he stands up. Patient has been checking his blood pressure with consistent systolic pressures in the 90s. Chest x-ray showed interstitial pulmonary infiltrates with pleural thickening in the left mid and lower lung field not significantly different on the most recent exam 03/02/2020. Laboratory data showed WBC 5.6, hemoglobin 9.8 and INR 1.0, sodium 134, potassium 4.7, chloride 104, bicarb 39 BUN 33 and creatinine 1.78 plasma lactic acid was 3.5 and magnesium 1.4 troponin negative at 0.012 Liver Elevated Patient was being continued on IV hydration. He was also started on antibiotics for possible left lower lobe pneumonia. Currently patient did improve symptomatically. Review of Systems Constitutional: Patient denies any fever or chills . No generalized weakness or weight loss. Abdomen: Patient denied nausea vomiting and diarrhea and abdominal pain. Cardiovascular: Patient denies any chest pain or short of breath no palpitati ons. Respiratory: patient denied any cough is from production. No shortness of breath Neurologic: Patient denied any numbness or tingling headache. Patient did have dizziness and lightheadedness Musculoskeletal: Patient denies any complaints of joint swelling or deformity. Skin: Negative Psychiatric: Negative Endocrine: No heat or cold intolerance. No recent weight gain. Genitourinary: No dysuria or hematuria. All other 14 point ROS negative except the above Past Medical History Past Medical History: Atrial Fibrillation, Asthma, Coronary Artery Disease (CAD), Cancer, COPD, GERD/Reflux, Hyperlipidemia, Hypertension, Osteoarthritis (OA), Pneumonia, Respiratory Disorder, Sleep Apnea/CPAP/BIPAP, Thyroid Disorder Additional Past Medical History / Comment(s): Lung Cancer, currently on hold of treatment, last chemo was in November/2019, diverticular disease, SBO with resection/colostomy/reversal of colostomy, prostate cancer with radiation tx, skin cancer removed from face, hypothyroid History of Any Multi-Drug Resistant Organisms: None Reported Past Surgical History: Bowel Resection, Heart Catheterization, Heart Catheterization With Stent, Orthopedic Surgery, Tonsillectomy Additional Past Surgical History / Comment(s): 01/07/19 bronchoscopy with BAL, past bronchoscopies/bx, PCI with stent 2006, bilateral reconstructive ear surgery and gland removed under jaw, bowel resection d/t rupture with colostomy later reversed, L cataract removal, demetra fundoloplasty, bilateral total shoulders/knees, L knee arthroscopy x 2, EGD, colonoscopy, prostate bx, bilateral exciscion gynecomastia, skin cancer removals. Past Anesthesia/Blood Transfusion Reactions: No Reported Reaction, Motion Si ckness Date of Last Stent Placement:: 2006 Past Psychological History: No Psychological Hx Reported Additional Psychological History / Comment(s): Pt resides with his spouse. He has a nebulizer. He drives. Smoking Status: Former smoker Past Alcohol Use History: Occasional Additional Past Alcohol Use History / Comment(s): SMOKED OCCASIONAL CIGAR. S TARTED SMOKING AT AGE 14 ,SMOKED TILL 1982 Past Drug Use History: None Reported - Past Family History Mother Family Medical History: Cancer Additional Family Medical History / Comment(s): MULTIPLE MEYLOMA Father Family Medical History: Cancer Additional Family Medical History / Comment(s): LUNG CANCER Sister(s) Family Medical History: Cancer Additional Family Medical History / Comment(s): sister had rectal cancer. Son(s) Family Medical History: Cancer Additional Family Medical History / Comment(s): Son has hodgkins lymphoma Medications and Allergies Home Medications Medication Instructions Recorded Confirmed Type FLUoxetine HCL [PROzac] 20 mg PO HS 08/05/14 04/05/20 History Levothyroxine Sodium [Synthroid] 50 mcg PO DAILY 08/05/14 04/05/20 History Omeprazole [PriLOSEC] 40 mg PO HS 08/05/14 04/05/20 History Tamsulosin [Flomax] 0.4 mg PO HS 08/05/14 04/05/20 History Folic Acid 1 mg PO HS 02/12/18 04/05/20 History Fluticasone/Umeclidin/Vilanter 1 puff INHALATION RT-DAILY 11/18/19 04/05/20 History [Trelegy Ellipta 100-62.5-25] predniSONE 5 mg PO DAILY 11/18/19 04/05/20 History Cholecalciferol [Vitamin D3 (25 1,000 unit PO DAILY 03/01/20 04/05/20 History Mcg = 1000 Iu)] L.acidoph,Paracasei, B.lactis 1 tab PO DAILY 03/01/20 04/05/20 History [Probiotic] Rivaroxaban [Xarelto] 20 mg PO HS 03/01/20 04/05/20 History Budesonide [Pulmicort] 1 mg INHALATION RT-BID #60 ml 03/06/20 Rx Ipratropium-Albuterol Nebulize 3 ml INHALATION QID PRN 04/05/20 04/05/20 History [Duoneb 0.5 mg-3 mg/3 ml Soln] Montelukast Sodium [Singulair] 10 mg PO HS 04/05/20 04/05/20 History Oxymetazoline 0.05% Nasl [place] 3 spray NASAL BID PRN 04/05/20 04/05/20 History [Afrin 0.05% Nasal [place]] guaiFENesin [Mucinex] 1,200 mg PO Q12HR PRN 04/05/20 04/05/20 History Metoprolol Tartrate [Lopressor] 25 mg PO BID #60 tab 04/06/20 Rx lisinopriL [Zestril] 5 mg PO DAILY #30 tablet 04/06/20 Rx Allergies Allergy/AdvReac Type Severity Reaction Status Date / Time No Known Allergies Allergy Verified 04/05/20 22:39 Physical Exam Vitals: Vital Signs Temp Pulse Pulse Pulse Pulse Resp BP 04/06/20 04:37 97.1 F L 67 18 04/05/20 23:00 97.7 F 70 18 04/05/20 22:44 97.8 F 64 18 126/73 04/05/20 21:55 98.5 F 60 18 125/92 04/05/20 21:35 61 62 55 L 20 04/05/20 21:20 60 16 126/75 04/05/20 20:40 56 L 18 107/64 04/05/20 20:25 55 L 16 99/53 04/05/20 20:03 56 L 18 129/74 04/05/20 19:55 98.1 F 62 16 89/55 BP BP BP Pulse Ox 04/06/20 04:37 135/71 96 04/05/20 23:00 139/80 96 04/05/20 22:44 98 04/05/20 21:55 100 04/05/20 21:35 110/73 121/71 114/68 04/05/20 21:20 97 04/05/20 20:40 99 04/05/20 20:25 99 04/05/20 20:03 98 04/05/20 19:55 95 Intake and Output 04/05/20 04/06/20 04/06/20 22:59 06:59 14:59 Intake Total 650 Output Total 800 800 Balance -150 -800 Intake: Intake, IV Titration 650 Amount Sodium Chloride 0.9% 1, 650 000 ml @ 130 mls/hr IV . Q7H42M [facility] Rx#:[id number] Output: Urine 800 800 Other: Voiding Method Toilet Urinal Weight 98.43 kg 98.43 kg PHYSICAL EXAMINATION: Patient is lying in the bed comfortably, no acute distress, awake alert and oriented.. HEENT: Normocephalic. Neck is supple. Pupils reactive. Nostrils clear. Oral cavity is moist. Ears reveal no drainage. Neck reveals no JVD, carotid bruits, or thyromegaly. CHEST EXAMINATION: Trachea is central. Symmetrical expansion. Lung li clear to auscultation and percussion. CARDIAC: Normal S1, S2 with no gallops. No murmurs ABDOMEN: Soft. Bowel sounds normal. No organomegaly. No abdominal bruits. Extremities: reveal no edema. No clubbing or cyanosis Neurologically awake, alert, oriented x3 with well-coordinated movements. No focal deficits noted Skin: No rash or skin lesions. Psychiatric: Coperative. Nonsuicidal Musculoskeletal: No joint swelling or deformity. Normal range of motion. Results CBC & Chem 7: 04/05/20 20:38 04/05/20 20:38 Labs: Abnormal Lab Results - Last 24 Hours (Table) 04/05/20 04/05/20 04/05/20 Range/Units 20:38 20:38 20:38 RBC 3.92 L (4.30-5.90) m/uL Hgb 11.8 L (13.0-17.5) gm/dL Hct 35.4 L (39.0-53.0) % Sodium 134 L (137-145) mmol/L Carbon Dioxide 13 L (22-30) mmol/L BUN 33 H (9-20) mg/dL Creatinine 1.78 H (0.66-1.25) mg/dL Glucose 115 H (74-99) mg/dL Plasma Lactic Acid Vel 3.5 H* (0.7-2.0) mmol/L Magnesium 1.4 L (1.6-2.3) mg/dL Thrombosis Risk Factor Assmnt - DVT/VTE Prophylaxis DVT/VTE Prophylaxis: Pharmacologic Prophylaxis ordered - Choose All That Apply Any of the Below Risk Factors Present?: Yes Each Factor Represents 1 point: Abnormal pulmonary function (COPD), Obesity (BMI >25), Serious lung disease incl. pneumonia (< 1month) Other Risk Factors: Yes Each Risk Factor Represents 3 Points: Age 75 years or older Thrombosis Risk Factor Assessment Total Risk Factor Score: 6 Thrombosis Risk Factor Assessment Level: High Risk Assessment and Plan Assessment: Dizziness and lightheadedness likely to due to hypotension. No evidence of infection noted. Mild lactic acidosis secondary to volume depletion improved with IV hydration Acute kidney injury secondary to hypotension and dehydration. Improved now Recent history of COPD exacerbation and bronchial culture showed no growth. Recent history of hypertensive urgency and was started multiple blood pressure medications Prolactin replacement currently in sinus rhythm. Anticoagulation with Xarelto Coronary artery disease with history of NV and stent placement Chronic CHF with mildly impaired systolic dysfunction and valvular heart disease. Hypertension Obstructive sleep apnea Hypothyroidism History of bowel obstruction and resection, colostomy and colostomy reversal DVT prophylaxis patient is already on full anticoagulation. Plan: Patient will be continued on IV hydration and blood pressure medications on hold. Patient was seen by pulmonary and his left lower lobe lung findings are similar to his previous exam and no evidence of pneumonia noted. Patient did improve symptomatically. Continue the home medications and follow-up closely. Patient was initially started on antibiotics for possible left lower pneumonia. Time with Patient: Greater than 30
--- NOTE | 2020-04-20 11:53 | P.DS ---
Providers Date of admission: 04/05/20 21:43 Expected date of discharge: 04/06/20 Attending physician: Melo Brock Consults: 04/06/20 11:31 Consult Physician Routine Consulting Provider: Anthony Sheppard Consult Reason/Comments: Pulmonary infiltrates / Lung CA Do you want consulting provider notified?: Yes Primary care physician: Roxie Melendez Hospital Course: Discharge diagnosis Dizziness and lightheadedness likely to due to hypotension. No evidence of infection noted. Mild lactic acidosis secondary to volume depletion improved with IV hydration Acute kidney injury secondary to hypotension and dehydration. Improved now Recent history of COPD exacerbation and bronchial culture showed no growth. Recent history of hypertensive urgency and was started multiple blood pressure medications Prolactin replacement currently in sinus rhythm. Anticoagulation with Xarelto Coronary artery disease with history of PR and stent placement Chronic CHF with mildly impaired systolic dysfunction and valvular heart disease. Hypertension Obstructive sleep apnea Hypothyroidism History of bowel obstruction and resection, colostomy and colostomy reversal DVT prophylaxis patient is already on full anticoagulation. Hospital course Patient is a 28-year-old male with a known history of COPD, atrial fibrillation on Xarelto, valvular heart disease with moderate to severe aortic stenosis, mild MR and mild TR and ejection fraction 45 to 50%., Metastatic adenocarcinoma of the lung diagnosed in 2015 with diagnostic thoracentesis with cytology positive for adenocarcinoma, recent admission with shortness of breath and CT abdomen chest/abdomen pelvis in December 2019 revealed no evidence of progression of pulmonary adenocarcinoma. Patient underwent bronchoscopy with bronchoalveolar cultures on 03/05/2020 showed no growth. Patient was treated medically and discharged home on 03/07/2020. During hospital stay patient did have high blood pressure with SBP greater than 200 and the blood pressure medications were increased at this time. Patient states that since discharge he has been having low blood pressures and dizziness. Patient also takes Flomax metoprolol and amlodipine. Otherwise denied any fever or chills. Patient felt lightheaded especially when he exerts himself and when he stands up. Patient has been checking his blood pres sure with consistent systolic pressures in the 90s. Chest x-ray showed interstitial pulmonary infiltrates with pleural thickening in the left mid and lower lung field not significantly different on the most recent exam 03/02/2020. Laboratory data showed WBC 5.6, hemoglobin 9.8 and INR 1.0, sodium 134, potassium 4.7, chloride 104, bicarb 39 BUN 33 and creatinine 1.78 plasma lactic acid was 3.5 and magnesium 1.4 troponin negative at 0.012 Liver Elevated Patient was being continued on IV hydration. He was also started on antibiotics for possible left lower lobe pneumonia. Currently patient did improve symptomatically With IV hydration and holding on blood pressure medications. Patient was started on empiric antibiotics for left lower lobe pneumonia. Patient was seen by pulmonary and recommended no antibiotics at this time and his chest x-ray findings are similar to previous exam. Patient wishes to be discharged home now.. Discharge physical examination was done and vitals reviewed. Patient Condition at Discharge: Fair Plan - Discharge Summary Discharge Rx Participant: No New Discharge Prescriptions: New Metoprolol Tartrate [Lopressor] 25 mg PO BID #60 tab lisinopriL [Zestril] 5 mg PO DAILY #30 tablet Continue Levothyroxine Sodium [Synthroid] 50 mcg PO DAILY FLUoxetine HCL [PROzac] 20 mg PO HS Tamsulosin [Flomax] 0.4 mg PO HS Omeprazole [PriLOSEC] 40 mg PO HS Folic Acid 1 mg PO HS predniSONE 5 mg PO DAILY Fluticasone/Umeclidin/Vilanter [Trelegy Ellipta 100-62.5-25] 1 puff INHALATION RT-DAILY Rivaroxaban [Xarelto] 20 mg PO HS Cholecalciferol [Vitamin D3 (25 Mcg = 1000 Iu)] 1,000 unit PO DAILY L.acidoph,Paracasei, B.lactis [Probiotic] 1 tab PO DAILY Budesonide [Pulmicort] 1 mg INHALATION RT-BID #60 ml Ipratropium-Albuterol Nebulize [Duoneb 0.5 mg-3 mg/3 ml Soln] 3 ml INHALATION QID PRN PRN Reason: Shortness Of Breath guaiFENesin [Mucinex] 1,200 mg PO Q12HR PRN PRN Reason: Sinus Symptoms Oxymetazoline 0.05% Nasl [place] [Afrin 0.05% Nasal [place]] 3 spray NASAL BID PRN PRN Reason: Sinus Symptoms Montelukast Sodium [Singulair] 10 mg PO HS Discontinued Metoprolol Tartrate [Lopressor] 50 mg PO BID Lisinopril-Hctz 10-12.5 mg [Zestoretic 10-12.5] 1 each PO DAILY #30 tab amLODIPine [Norvasc] 5 mg PO DAILY Discharge Medication List FLUoxetine HCL [PROzac] 20 mg PO HS 08/05/14 [History] Levothyroxine Sodium [Synthroid] 50 mcg PO DAILY 08/05/14 [History] Omeprazole [PriLOSEC] 40 mg PO HS 08/05/14 [History] Tamsulosin [Flomax] 0.4 mg PO HS 08/05/14 [History] Folic Acid 1 mg PO HS 02/12/18 [History] Fluticasone/Umeclidin/Vilanter [Trelegy Ellipta 100-62.5-25] 1 puff INHALATION RT-DAILY 11/18/19 [History] predniSONE 5 mg PO DAILY 11/18/19 [History] Cholecalciferol [Vitamin D3 (25 Mcg = 1000 Iu)] 1,000 unit PO DAILY 03/01/20 [History] L.acidoph,Paracasei, B.lactis [Probiotic] 1 tab PO DAILY 03/01/20 [History] Rivaroxaban [Xarelto] 20 mg PO HS 03/01/20 [History] Budesonide [Pulmicort] 1 mg INHALATION RT-BID #60 ml 03/06/20 [Rx] Ipratropium-Albuterol Nebulize [Duoneb 0.5 mg-3 mg/3 ml Soln] 3 ml INHALATION QID PRN 04/05/20 [History] Montelukast Sodium [Singulair] 10 mg PO HS 04/05/20 [History] Oxymetazoline 0.05% Nasl [place] [Afrin 0.05% Nasal [place]] 3 spray NASAL BID PRN 04/05/20 [History] guaiFENesin [Mucinex] 1,200 mg PO Q12HR PRN 04/05/20 [History] Metoprolol Tartrate [Lopressor] 25 mg PO BID #60 tab 04/06/20 [Rx] lisinopriL [Zestril] 5 mg PO DAILY #30 tablet 04/06/20 [Rx] Follow up Appointment(s)/Referral(s): Roxie Melendez DO [Primary Care Provider] - 1-2 days (please call office to set up appt.) Activity/Diet/Wound Care/Special Instructions: Take your blood pressure before taking your medications. Hold your Metoprolol if your systolic blood pressure (the top number) is less than 110, or your heart rate is less than 60. Discharge Disposition: HOME SELF-CARE
== END 2020-04-06 16:35 | disposition home or self-care (01) | DRG 312 ==
LOC: EC 19:48 → 5NMEDONC 21:43
PROVIDERS: ADMIT Hospitalist; ATTEND Hospitalist
DX: I95.2 Hypotension due to drugs (principal); E87.2 Acidosis; N17.9 Acute kidney failure, unspecified; C34.32 Malignant neoplasm of lower lobe, left bronchus or lung; T46.1X5A Adverse effect of calcium-channel blockers, initial encounter; T46.4X5A Adverse effect of angiotensin-converting-enzyme inhibitors, initial encounter; E03.9 Hypothyroidism, unspecified; E78.5 Hyperlipidemia, unspecified; E86.0 Dehydration; I08.3 Combined rheumatic disorders of mitral, aortic and tricuspid valves; I48.0 Paroxysmal atrial fibrillation; I50.9 Heart failure, unspecified; I25.2 Old myocardial infarction; I25.10 Atherosclerotic heart disease of native coronary artery without angina pectoris; I11.0 Hypertensive heart disease with heart failure; Z87.01 Personal history of pneumonia (recurrent); J44.9 Chronic obstructive pulmonary disease, unspecified; Z79.01 Long term (current) use of anticoagulants; K57.90 Diverticulosis of intestine, part unspecified, without perforation or abscess without bleeding; Z90.49 Acquired absence of other specified parts of digestive tract; G47.30 Sleep apnea, unspecified; Z99.89 Dependence on other enabling machines and devices; R91.8 Other nonspecific abnormal finding of lung field; Z85.46 Personal history of malignant neoplasm of prostate; Z85.828 Personal history of other malignant neoplasm of skin; Z87.891 Personal history of nicotine dependence; Z95.5 Presence of coronary angioplasty implant and graft; Z98.42 Cataract extraction status, left eye; Z80.1 Family history of malignant neoplasm of trachea, bronchus and lung; Z80.0 Family history of malignant neoplasm of digestive organs; Z79.899 Other long term (current) drug therapy; Z79.890 Hormone replacement therapy; Z80.7 Family history of other malignant neoplasms of lymphoid, hematopoietic and related tissues; Z92.21 Personal history of antineoplastic chemotherapy; Z92.3 Personal history of irradiation; Z90.89 Acquired absence of other organs; M19.90 Unspecified osteoarthritis, unspecified site; Z96.653 Presence of artificial knee joint, bilateral; Z96.612 Presence of left artificial shoulder joint; Z96.611 Presence of right artificial shoulder joint
CPT/HCPCS: 36415; 71046; 80053; 83605; 83735; 84484; 85025; 85610; 85730; 87040; 93005; 94640; 96365; 99285

== ENCOUNTER → 2020-06-01 | Outpatient (CLI) | payer MEDICARE ==
--- NOTE | 2020-06-01 14:21 | CT ---
EXAMINATION TYPE: CT ChestAbdPelvis w con DATE OF EXAM: 06/01/2020 COMPARISON: 01/22/2020 HISTORY: LUNG CA CT DLP: 1713.1 mGycm CONTRAST: CT scan of the chest, abdomen and pelvis is performed with Oral Contrast and with IV Contrast, patien t injected with 100 mL of Isovue 300. CT Chest: LUNGS: Subpleural nodule right upper lobe paraspinal region is again noted and currently measures 2. x 2.5 x 1.4 cm versus 2.4 x 2.5 x 1.5 cm. right basilar subpleural nodule measures 1.1 cm versus 1.1 cm previously axial image 49 at the costophrenic angle region. Additional small stable pulmonary nodu le right lower lobe image 43 measures 4 mm. Pleural-parenchymal scarring left lower lobe no new nodul es or masses seen. MEDIASTINUM: Thoracic aorta is of normal caliber. The heart is not enlarged. No evidence for media stinal mass or adenopathy. HILAR STRUCTURES: No evidence for mass. No hilar adenopathy is appreciated. OTHER: No significant abnormality. CONTRAST CT ABDOMEN AND PELVIS FINDINGS: LIVER/GB: Small gallstones are identified. No evidence for wall thickening. No space occupying hepati c lesion. Biliary tree is of normal caliber. PANCREAS: No inflammation. No distinct mass. SPLEEN: No splenic enlargement. No lesion seen. ADRENALS: No nodule. No thickening. KIDNEYS/BLADDER: No hydronephrosis. No nephrolithiasis. Simple appearing cyst upper pole left kidne y is unchanged. BOWEL: Normal appendix. Normal bowel caliber. No inflammation. GENITAL ORGANS: No gross abnormality. LYMPH NODES: No greater than 1cm abdominal or pelvic lymph nodes are appreciated. AORTA: No significant abnormality. OSSEOUS STRUCTURES: No significant abnormality is seen. OTHER: No significant additional abnormality is seen. IMPRESSION: 1. Stable right-sided pulmonary nodularity. Stable postoperative changes left lower lobe.
== END | disposition home or self-care (01) ==
LOC: RADCTMAIN 12:24
PROVIDERS: ATTEND Internal Medicine Hematology & Oncology
DX: C34.11 Malignant neoplasm of upper lobe, right bronchus or lung (principal); Z98.890 Other specified postprocedural states
CPT/HCPCS: 82565; 84520; 71260; 74177; 36415; Q9967

== ENCOUNTER 2020-06-11 15:27 | Inpatient (IN) | payer MEDICARE ==
[2020-06-11] MEDS ORDERED: IPRATROPIUM-ALBUTEROL 3 ML NEB INHALATION STA (16:00)
[2020-06-11] MEDS ORDERED: methylPREDNISolone SOD SUCCI 125 MG/2 ML VIAL IV STA (16:00)
--- NOTE | 2020-06-11 16:04 | ED ---
SOB HPI - General Chief Complaint: Shortness of Breath Stated Complaint: Cough, SOB Time Seen by Provider: 06/11/20 15:47 Source: patient, family, RN notes reviewed Mode of arrival: wheelchair Limitations: no limitations - History of Present Illness Initial Comments: This is an 80-year-old male history of COPD lung cancer asthma who states he also was diagnosed with pneumonia recently states he had total by a CAT scan recently that was negative for any acute findings who has been having a cough with exertional dyspnea or last week or so. He's had a cough with some rhinorrhea no fevers chills or sweats no phlegm production he states is a dry cough no chest pain no other modifying factors MD Complaint: shortness of breath, cough - Related Data Home Medications Medication Instructions Recorded Confirmed FLUoxetine HCL [PROzac] 20 mg PO HS 08/05/14 06/11/20 Levothyroxine Sodium [Synthroid] 50 mcg PO DAILY 08/05/14 06/11/20 Omeprazole [PriLOSEC] 40 mg PO HS 08/05/14 06/11/20 Folic Acid 1 mg PO HS 02/12/18 06/11/20 Fluticasone/Umeclidin/Vilanter 1 puff INHALATION RT-DAILY 11/18/19 06/11/20 [Trelegy Ellipta 100-62.5-25] predniSONE 5 mg PO DAILY 11/18/19 06/11/20 Cholecalciferol [Vitamin D3 (25 1,000 unit PO DAILY 03/01/20 06/11/20 Mcg = 1000 Iu)] L.acidoph,Paracasei, B.lactis 1 tab PO DAILY 03/01/20 06/11/20 [Probiotic] Rivaroxaban [Xarelto] 20 mg PO HS 03/01/20 06/11/20 Ipratropium-Albuterol Nebulize 3 ml INHALATION QID PRN 04/05/20 06/11/20 [Duoneb 0.5 mg-3 mg/3 ml Soln] Montelukast Sodium [Singulair] 10 mg PO HS 04/05/20 06/11/20 Oxymetazoline 0.05% Nasl [place] 3 spray NASAL BID PRN 04/05/20 06/11/20 [Afrin 0.05% Nasal [place]] Losartan Potassium 50 mg PO DAILY 06/11/20 06/11/20 amLODIPine [Norvasc] 10 mg PO DAILY 06/11/20 06/11/20 traZODone HCL 50 mg PO HS 06/11/20 06/11/20 Previous Rx's Medication Instructions Recorded Budesonide [Pulmicort] 1 mg INHALATION RT-BID #60 ml 03/06/20 Metoprolol Tartrate [Lopressor] 25 mg PO BID #60 tab 04/06/20 Allergies Allergy/AdvReac Type Severity Reaction Status Date / Time No Known Allergies Allergy Verified 06/11/20 17:34 Review of Systems ROS Statement: Those systems with pertinent positive or pertinent negative responses have been documented in the HPI. ROS Other: All systems not noted in ROS Statement are negative. Past Medical History Past Medical History: Atrial Fibrillation, Asthma, Coronary Artery Disease (CAD), Cancer, COPD, GERD/Reflux, Hyperlipidemia, Hypertension, Osteoarthritis (OA), Pneumonia, Respiratory Disorder, Sleep Apnea/CPAP/BIPAP, Thyroid Disorder Additional Past Medical History / Comment(s): Lung Cancer, currently on hold of treatment, last chemo was in November/2019, diverticular disease, SBO with resection/colostomy/reversal of colostomy, prostate cancer with radiation tx, skin cancer removed from face, hypothyroid History of Any Multi-Drug Resistant Organisms: None Reported Past Surgical History: Bowel Resection, Heart Catheterization, Heart Catheterization With Stent, Orthopedic Surgery, Tonsillectomy Additional Past Surgical History / Comment(s): 01/07/19 bronchoscopy with BAL, past bronchoscopies/bx, PCI with stent 2006, bilateral reconstructive ear surgery and gland removed under jaw, bowel resection d/t rupture with colostomy later reversed, L cataract removal, demetra fundoloplasty, bilateral total shoulders/knees, L knee arthroscopy x 2, EGD, colonoscopy, prostate bx, bilateral exciscion gynecomastia, skin cancer removals. Past Anesthesia/Blood Transfusion Reactions: No Reported Reaction, Motion Sickness Date of Last Stent Placement:: 2006 Past Psychological History: No Psychological Hx Reported Smoking Status: Former smoker Past Alcohol Use History: Occasional Past Drug Use History: None Reported - Past Family History Mother Family Medical History: Cancer Additional Family Medical History / Comment(s): MULTIPLE MEYLOMA Father Family Medical History: Cancer Additional Family Medical History / Comment(s): LUNG CANCER Sister(s) Family Medical History: Cancer Additional Family Medical History / Comment(s): sister had rectal cancer. Son(s) Family Medical History: Cancer Additional Family Medical History / Comment(s): Son has hodgkins lymphoma General Exam - General Exam Comments Initial Comments: This is a well-developed well-nourished awake alert oriented times female Limitations: no limitations General appearance: alert, in no apparent distress Head exam: Present: atraumatic, normocephalic, normal inspection Eye exam: Present: normal appearance, PERRL, EOMI. Absent: scleral icterus, conjunctival injection, periorbital swelling ENT exam: Present: normal exam, mucous membranes moist Neck exam: Present: normal inspection, full ROM, other (No stridor JVD or bruits). Absent: tenderness, meningismus, lymphadenopathy Respiratory exam: Present: decreased breath sounds. Absent: respiratory distress, wheezes, rales, rhonchi, stridor Cardiovascular Exam: Present: regular rate, normal rhythm, normal heart sounds. Absent: systolic murmur, diastolic murmur, rubs, gallop, clicks GI/Abdominal exam: Present: soft, normal bowel sounds. Absent: distended, tenderness, guarding, rebound, rigid Extremities exam: Present: normal inspection, full ROM, normal capillary refill. Absent: tenderness, pedal edema, joint swelling, calf tenderness Back exam: Present: normal inspection Neurological exam: Present: alert, oriented X3, CN II-XII intact Psychiatric exam: Present: normal affect, normal mood Skin exam: Present: warm, dry, intact, normal color. Absent: rash Course Vital Signs 06/11/20 06/11/20 06/11/20 15:32 15:59 16:00 Temperature 98.0 F Pulse Rate 60 58 L 58 L Respiratory 24 18 16 Rate Blood Pressure 173/106 O2 Sat by Pulse 89 L 98 98 Oximetry 06/11/20 06/11/20 06/11/20 16:08 16:23 16:30 Temperature Pulse Rate 58 L 58 L Respiratory Rate Blood Pressure O2 Sat by Pulse 99 100 Oximetry 06/11/20 06/11/20 06/11/20 16:34 17:00 17:30 Temperature Pulse Rate 58 L 52 L 56 L Respiratory 18 Rate Blood Pressure 173/107 181/98 O2 Sat by Pulse 96 96 Oximetry 06/11/20 18:00 Temperature Pulse Rate 55 L Respiratory 18 Rate Blood Pressure 179/98 O2 Sat by Pulse 95 Oximetry - Reevaluation(s) Reevaluation #1: 06/11/20 18:29 ALLERGIES the patient reveals he feels somewhat better after the updraft treatment he has increased aeration though he does have left lower lobe crackles. Elevation of his BNP. Salsa relate that he's had about a 15 pound weight gain in the last few months. Medical Decision Making - Medical Decision Making Patient does have improved aeration though diminished breath sounds with some left sided rales. Patient will be admitted there does appear to be accommodation of heart failure with COPD exacerbation. The case is discussed with Dr. Mina - Lab Data Result diagrams: 06/11/20 16:08 06/11/20 16:08 Lab Results 06/11/20 06/11/20 06/11/20 Range/Units 16:08 16:08 16:08 WBC 6.7 (3.8-10.6) k/uL RBC 4.46 (4.30-5.90) m/uL Hgb 13.7 (13.0-17.5) gm/dL Hct 41.8 (39.0-53.0) % MCV 93.7 (80.0-100.0) fL MCH 30.6 (25.0-35.0) pg MCHC 32.6 (31.0-37.0) g/dL RDW 14.6 (11.5-15.5) % Plt Count 180 (150-450) k/uL Neutrophils % 67 % Lymphocytes % 21 % Monocytes % 7 % Eosinophils % 3 % Basophils % 1 % Neutrophils # 4.5 (1.3-7.7) k/uL Lymphocytes # 1.4 (1.0-4.8) k/uL Monocytes # 0.5 (0-1.0) k/uL Eosinophils # 0.2 (0-0.7) k/uL Basophils # 0.1 (0-0.2) k/uL PT 9.9 (9.0-12.0) sec INR 0.9 (<1.2) APTT 25.7 (22.0-30.0) sec Sodium 140 (137-145) mmol/L Potassium 4.0 (3.5-5.1) mmol/L Chloride 109 H (98-107) mmol/L Carbon Dioxide 25 (22-30) mmol/L Anion Gap 6 mmol/L BUN 20 (9-20) mg/dL Creatinine 1.50 H (0.66-1.25) mg/dL Est GFR (CKD-EPI)AfAm 50 (>60 ml/min/1.73 sqM) Est GFR (CKD-EPI)NonAf 43 (>60 ml/min/1.73 sqM) Glucose 101 H (74-99) mg/dL Plasma Lactic Acid Vel (0.7-2.0) mmol/L Calcium 9.8 (8.4-10.2) mg/dL Magnesium 1.7 (1.6-2.3) mg/dL Total Bilirubin 0.3 (0.2-1.3) mg/dL AST 18 (17-59) U/L ALT 13 (4-49) U/L Alkaline Phosphatase 99 (38-126) U/L Creatine Kinase 50 L (55-170) U/L Troponin I (0.000-0.034) ng/mL NT-Pro-B Natriuret Pep pg/mL Total Protein 6.4 (6.3-8.2) g/dL Albumin 3.8 (3.5-5.0) g/dL 06/11/20 06/11/20 06/11/20 Range/Units 16:08 16:08 16:08 WBC (3.8-10.6) k/uL RBC (4.30-5.90) m/uL Hgb (13.0-17.5) gm/dL Hct (39.0-53.0) % MCV (80.0-100.0) fL MCH (25.0-35.0) pg MCHC (31.0-37.0) g/dL RDW (11.5-15.5) % Plt Count (150-450) k/uL Neutrophils % % Lymphocytes % % Monocytes % % Eosinophils % % Basophils % % Neutrophils # (1.3-7.7) k/uL Lymphocytes # (1.0-4.8) k/uL Monocytes # (0-1.0) k/uL Eosinophils # (0-0.7) k/uL Basophils # (0-0.2) k/uL PT (9.0-12.0) sec INR (<1.2) APTT (22.0-30.0) sec Sodium (137-145) mmol/L Potassium (3.5-5.1) mmol/L Chloride (98-107) mmol/L Carbon Dioxide (22-30) mmol/L Anion Gap mmol/L BUN (9-20) mg/dL Creatinine (0.66-1.25) mg/dL Est GFR (CKD-EPI)AfAm (>60 ml/min/1.73 sqM) Est GFR (CKD-EPI)NonAf (>60 ml/min/1.73 sqM) Glucose (74-99) mg/dL Plasma Lactic Acid Vel 1.3 (0.7-2.0) mmol/L Calcium (8.4-10.2) mg/dL Magnesium (1.6-2.3) mg/dL Total Bilirubin (0.2-1.3) mg/dL AST (17-59) U/L ALT (4-49) U/L Alkaline Phosphatase (38-126) U/L Creatine Kinase (55-170) U/L Troponin I <0.012 (0.000-0.034) ng/mL NT-Pro-B Natriuret Pep 2910 pg/mL Total Protein (6.3-8.2) g/dL Albumin (3.5-5.0) g/dL - EKG Data -: EKG Interpreted by Ak EKG shows normal: sinus rhythm (Sinus bradycardia 59. A 164 QRS duration 92 QT since QTC of 436/[address]-T wave configuration) - Radiology Data Radiology results: report reviewed (Review the x-ray shows evidence of possible CHF.), image reviewed Disposition Clinical Impression: Congestive heart failure, Acute exacerbation of chronic obstructive pulmonary disease Disposition: ADMITTED IP TO THIS HOSP Condition: Fair Referrals: Roxie Melendez DO [Primary Care Provider] - 1-2 days
--- NOTE | 2020-06-11 16:24 | XR ---
EXAMINATION TYPE: XR chest 2V DATE OF EXAM: 06/11/2020 COMPARISON: 04/05/2020 HISTORY: 80 year-old male shortness of breath, difficulty breathing TECHNIQUE: AP and lateral views FINDINGS: Right total shoulder arthroplasty partially visualized. Partially visualized reverse left shoulder pl asty. Moderate cardiomegaly. Diffuse interstitial prominence. Trace left pleural effusion. Some mild patchy density at the left lower lung. IMPRESSION: Correlate for CHF with pulmonary vascular congestion. Trace left effusion.
[2020-06-11 16:27] LABS: Basophils # (A) 0.1 k/uL (0-0.2); Basophils % (A) 1 %; Eosinophils # (A) 0.2 k/uL (0-0.7); Eosinophils % (A) 3 %; HCT 41.8 % (39.0-53.0); HGB 13.7 gm/dL (13.0-17.5); Lymphocytes # (A) 1.4 k/uL (1.0-4.8); Lymphocytes % (A) 21 %; MCH 30.6 pg (25.0-35.0); MCHC 32.6 g/dL (31.0-37.0); MCV 93.7 fL (80.0-100.0); Mean Platelet Volume 7.8; Monocytes # (A) 0.5 k/uL (0-1.0); Monocytes % (A) 7 %; Neutrophils # (A) 4.5 k/uL (1.3-7.7); Neutrophils % (A) 67 %; Platelet Count 180 k/uL (150-450); RBC 4.46 m/uL (4.30-5.90); RDW 14.6 % (11.5-15.5); WBC 6.7 k/uL (3.8-10.6)
[2020-06-11 16:34] LABS: INR 0.9 (<1.2); Partial Thromboplastin Time 25.7 sec (22.0-30.0); Prothrombin Time 9.9 sec (9.0-12.0)
[2020-06-11 16:37] LABS: Albumin 3.8 g/dL (3.5-5.0); Calcium 9.8 mg/dL (8.4-10.2); Magnesium 1.7 mg/dL (1.6-2.3); Total Bilirubin 0.3 mg/dL (0.2-1.3); Total Protein 6.4 g/dL (6.3-8.2)
[2020-06-11] MEDS ORDERED: METOPROLOL TARTRATE 25 MG TAB PO STA (18:26)
[2020-06-11] MEDS ORDERED: LOSARTAN 50 MG TAB PO STA (18:26)
[2020-06-11] MEDS ORDERED: FUROSEMIDE 10 MG/ML 4 ML VIAL IV STA (18:27)
[2020-06-11] MEDS ORDERED: amLODIPine 10 MG TAB PO STA (18:27)
[2020-06-11] MEDS ORDERED: OXYMETAZOLINE 0.05% NASL SPRAY 1 SPRAY BOTTLE NASAL PRN (18:40)
[2020-06-11] MEDS ORDERED: IPRATROPIUM-ALBUTEROL 3 ML NEB INHALATION PRN (19:08)
[2020-06-11] MEDS ORDERED: IPRATROPIUM-ALBUTEROL 3 ML NEB INHALATION SCH (20:00)
[2020-06-11] MEDS: FORMOTEROL FUMARATE 20 MCG/2 ML NEBU INHALATION SCH (20:49)
[2020-06-11] MEDS: BUDESONIDE 1 MG/2 ML NEBU INHALATION SCH (20:49)
[2020-06-11] MEDS: IPRATROPIUM-ALBUTEROL 3 ML NEB INHALATION SCH (20:49)
[2020-06-11] MEDS ORDERED: MONTELUKAST 10 MG TAB PO SCH (21:00)
[2020-06-11] MEDS ORDERED: traZODone HCL 50 MG TAB PO SCH (21:00)
[2020-06-11] MEDS ORDERED: FLUoxetine HCL 20 MG CAP PO SCH (21:00)
[2020-06-11] MEDS ORDERED: FOLIC ACID 1 MG TAB PO SCH (21:00)
[2020-06-11] MEDS ORDERED: PANTOPRAZOLE 40 MG TABLET PO SCH (21:00)
[2020-06-11] MEDS ORDERED: RIVAROXABAN 20 MG TAB PO SCH (21:00)
[2020-06-11] MEDS: methylPREDNISolone SOD SUCCI 125 MG/2 ML VIAL IV SCH (21:53)
[2020-06-12 05:00] VITALS: RESP 18
[2020-06-12] MEDS: methylPREDNISolone SOD SUCCI 125 MG/2 ML VIAL IV SCH (06:04)
[2020-06-12] MEDS: INSULIN ASPART (NovoLOG) 100 UNIT/ML VIAL SQ SCH ×3 (06:21→13:23)
[2020-06-12 06:26] LABS: Glucose,Whole Blood 186 mg/dL (75-99)
[2020-06-12] MEDS ORDERED: LEVOTHYROXINE 50 MCG TAB PO SCH (06:30)
[2020-06-12] MEDS ORDERED: NON FORMULARY DRUG (Fluticasone/Umeclidin/Vilanter [Trelegy Ellipta 100-62.5-25] 1 EACH Bl INHALATION SCH (08:00)
[2020-06-12] MEDS: IPRATROPIUM-ALBUTEROL 3 ML NEB INHALATION SCH ×2 (08:15→11:30)
[2020-06-12] MEDS: BUDESONIDE 1 MG/2 ML NEBU INHALATION SCH (08:15)
[2020-06-12] MEDS: FORMOTEROL FUMARATE 20 MCG/2 ML NEBU INHALATION SCH (08:15)
[2020-06-12] MEDS ORDERED: LOSARTAN 50 MG TAB PO SCH (09:00)
[2020-06-12] MEDS ORDERED: CHOLECALCIFEROL 1,000 UNIT TAB PO SCH (09:00)
[2020-06-12] MEDS ORDERED: FUROSEMIDE 10 MG/ML 4 ML VIAL IV SCH (09:00)
[2020-06-12] MEDS ORDERED: METOPROLOL TARTRATE 25 MG TAB PO SCH (09:00)
[2020-06-12] MEDS ORDERED: amLODIPine 10 MG TAB PO SCH (09:00)
[2020-06-12] MEDS ORDERED: LACTOBACILLUS ACIDOPH & BULGAR 1 EACH PACKET PO SCH (09:00)
[2020-06-12] MEDS ORDERED: LORATADINE-PSEUDOEPH 5-120 MG 1 EACH TAB.ER.12H PO SCH (12:00)
[2020-06-12 12:18] LABS: Glucose,Whole Blood 162 mg/dL (75-99)
[2020-06-12 12:37] VITALS: BP 147/81; PULSE 76; TEMP 97
--- NOTE | 2020-06-12 19:12 | P.HPIM ---
History of Present Illness H&P Date: 06/12/20 Chief Complaint: Cough Chief Complaint: Cough History present complaint: This is a pleasant 80-year-old patient of Dr. Roxie Melendez. Chronic stable m edical conditions include coronary artery disease, CHF with EF of 50-65%, moderate aortic stenosis with sclerosis, COPD, GERD, hyperlipidemia, hypertension, primary osteoarthritis,(s) sleep apnea, hypothyroid. 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 treated with chemotherapy -being followed with Dr. Rutherford. Patient received last chemotherapy in October of this year.. History of Demetra fundoplication, As in the past has had small bowel obstruction with resection colostomy and reversal of the same. Also had prostate cancer treated with radiation.. Since October of this year patient is put on about 15 pounds. Patient been having increasing cough for at least to 3 weeks. Cough is dry. No fever no chills. Appetite is good. Denies any reflux symptoms. 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 Not with much help. Patient has chronic sinus trouble always bothering him and has a postnasal drip. Denies any edema. Always uses one or 2 pillows. No fever or chills. Baseline some shortness of breath. Patient's cough is the biggest botheration. Review of systems: GEN.: A bit tired EYES: None HEENT: None NECK: None RESPIRATORY: As above CARDIOVASCULAR: None GASTROINTESTINAL: As above GENITOURINARY: None MUSCULOSKELETAL: Some joint pains LYMPHATICS: None HEMATOLOGICAL: None PSYCHIATRY: None NEUROLOGICAL: None Past medical history: Include Coronary artery disease with stent , stage IV adenocarcinoma of the lung on chemotherapy-last time in October 2019, history of Demetra fundoplication, COPD in an ex-smoker, hypothyroidism, essential hypertension, hyperlipidemia, obstructive sleep apnea, CHF with diastolic dysfunction, moderate aortic stenosis with sclerosis. January 2020 - GI bleed. EGD was unremarkable. Recent right fifth and sixth rib fracture Social history: . Smoked from age of 14 through 1982 alcohol occasionally. Retired. Family history: sister had rectal cancer Physical examination: VITAL SIGNS: 98, 60, 24, 152/92, GENERAL: BMI 29.4, sitting up in a chair, awake comfortable EYES: Pupils equal. Conjunctiva normal. HEENT: External appearance of nose and ears normal, oral cavity dry with NG tube. NECK: JVD not raised; masses not palpable. HEART: First and second heart sounds are normal; no edema. LUNGS: Respiratory rate increased, decreased breath sounds. ABDOMEN: Soft, distended, , liver spleen not palpable, no masses palpable. PSYCH: Alert and oriented x3; mood and affect normal. NEUROLOGICAL: Cranial nerves grossly intact; no facial asymmetry, power and sensation grossly intact. LYMPHATICS: No lymph nodes palpable in the axilla and neck INVESTIGATIONS, reviewed in the clinical context: White count 6.7 hemoglobin 13.7 platelets was 18 potassium 4 creatinine 1.5 Troponin I less than 0.012 proBNP 2910 EKG tracing personally reviewed by me-poor baseline in some leads, sinus rhythm Chest x-ray film personally reviewed by me-questionable venous prominence Assessment: -This is a patient with to 3 weeks of persistent cough. Patient is bothered by a postnasal drip with chronic sinus that seems to be the causative reason. Patient does not have any new orthopnea. No edema. Patient some elevation of BNP in the setting of elevated creatinines not significant. Patient has no sputum production no fever no chills. Cough is felt to be from postnasal drip. Patient is an outpatient treatment with steroids antibiotics with Dr. Sheppard no change in symptoms. -Chronic diverticulosis, asymptomatic -Chronic Demetra fundoplication, -Coronary artery disease with a prior history of stent -Stage IV adenocarcinoma of the lung on chemotherapy-last admin October of this year.-Follows with Dr. Rutherford -Normocytic anemia likely secondary to malignancy and chemotherapy -COPD in an ex-smoker- -Hypothyroidism -Essential hypertension -Hyperlipidemia -Obstructive sleep apnea -Chronic congestive heart failure from diastolic dysfunction EF 50-60%. No acute exacerbation. -Moderate aortic stenosis with sclerosis nonrheumatic -Chronic kidney disease. 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 - Plan: Discussed with the patient. DC IV Lasix. Had a lengthy talk with the patient. We'll start the patient on Claritin-D. Home medications be continued. If does well later this afternoon patient can be discharged home. Discussed with the patient questions answered Past Medical History Past Medical History: Atrial Fibrillation, Asthma, Coronary Artery Disease (CAD), Cancer, COPD, GERD/Reflux, Hyperlipidemia, Hypertension, Osteoarthritis (OA), Pneumonia, Respiratory Disorder, Sleep Apnea/CPAP/BIPAP, Thyroid Disorder Additional Past Medical History / Comment(s): Lung Cancer, currently on hold of treatment, last chemo was in November/2019, diverticular disease, SBO with resection/colostomy/reversal of colostomy, prostate cancer with radiation tx, skin cancer removed from face, hypothyroid History of Any Multi-Drug Resistant Organisms: None Reported Past Surgical History: Bowel Resection, Heart Catheterization, Heart Catheterization With Stent, Orthopedic Surgery, Tonsillectomy Additional Past Surgical History / Comment(s): 01/07/19 bronchoscopy with BAL, past bronchoscopies/bx, PCI with stent 2006, bilateral reconstructive ear surgery and gland removed under jaw, bowel resection d/t rupture with colostomy later reversed, L cataract removal, demetra fundoloplasty, bilateral total shoulders/knees, L knee arthroscopy x 2, EGD, colonoscopy, prostate bx, bilateral exciscion gynecomastia, skin cancer removals. Past Anesthesia/Blood Transfusion Reactions: No Reported Reaction, Motion Sickness Date of Last Stent Placement:: 2006 Past Psychological History: No Psychological Hx Reported Additional Psychological History / Comment(s): Pt resides with his spouse. He has a nebulizer. He drives. Smoking Status: Former smoker Past Alcohol Use History: Occasional Additional Past Alcohol Use History / Comment(s): SMOKED OCCASIONAL CIGAR. STARTED SMOKING AT AGE 14 ,SMOKED TILL 1982 Past Drug Use History: None Reported - Past Family History Mother Family Medical History: Cancer Additional Family Medical History / Comment(s): MULTIPLE MEYLOMA Father Family Medical History: Cancer Additional Family Medical History / Comment(s): LUNG CANCER Sister(s) Family Medical History: Cancer Additional Family Medical History / Comment(s): sister had rectal cancer. Son(s) Family Medical History: Cancer Additional Family Medical History / Comment(s): Son has hodgkins lymphoma Medications and Allergies Home Medications Medication Instructions Recorded Confirmed Type FLUoxetine HCL [PROzac] 20 mg PO HS 08/05/14 06/11/20 History Levothyroxine Sodium [Synthroid] 50 mcg PO DAILY 08/05/14 06/11/20 History Omeprazole [PriLOSEC] 40 mg PO HS 08/05/14 06/11/20 History Folic Acid 1 mg PO HS 02/12/18 06/11/20 History Fluticasone/Umeclidin/Vilanter 1 puff INHALATION RT-DAILY 11/18/19 06/11/20 History [Trelegy Ellipta 100-62.5-25] predniSONE 5 mg PO DAILY 11/18/19 06/11/20 History Cholecalciferol [Vitamin D3 (25 1,000 unit PO DAILY 03/01/20 06/11/20 History Mcg = 1000 Iu)] L.acidoph,Paracasei, B.lactis 1 tab PO DAILY 03/01/20 06/11/20 History [Probiotic] Rivaroxaban [Xarelto] 20 mg PO HS 03/01/20 06/11/20 History Budesonide [Pulmicort] 1 mg INHALATION RT-BID #60 ml 03/06/20 06/11/20 Rx Ipratropium-Albuterol Nebulize 3 ml INHALATION QID PRN 04/05/20 06/11/20 History [Duoneb 0.5 mg-3 mg/3 ml Soln] Montelukast Sodium [Singulair] 10 mg PO HS 04/05/20 06/11/20 History Oxymetazoline 0.05% Nasl [place] 3 spray NASAL BID PRN 04/05/20 06/11/20 History [Afrin 0.05% Nasal [place]] Metoprolol Tartrate [Lopressor] 25 mg PO BID #60 tab 04/06/20 06/11/20 Rx Losartan Potassium 50 mg PO DAILY 06/11/20 06/11/20 History amLODIPine [Norvasc] 10 mg PO DAILY 06/11/20 06/11/20 History traZODone HCL 50 mg PO HS 06/11/20 06/11/20 History Loratadine-Pseudoeph 5-120 mg 1 each PO Q12HR #10 tab.er.12h 06/12/20 Rx [Claritin-D 12 Hour] Allergies Allergy/AdvReac Type Severity Reaction Status Date / Time No Known Allergies Allergy Verified 06/11/20 17:34 Physical Exam Vitals: Vital Signs Temp Pulse Pulse Resp BP BP Pulse Ox 06/12/20 08:48 97.7 F 88 18 144/77 95 06/12/20 08:35 66 06/12/20 08:28 60 06/12/20 08:18 64 06/12/20 04:00 66 18 144/90 96 06/12/20 00:00 98.2 F 63 20 148/77 95 06/11/20 21:10 66 06/11/20 21:09 66 19 137/107 98 06/11/20 21:01 60 06/11/20 20:49 60 06/11/20 19:11 63 06/11/20 19:07 98.5 F 95 20 152/92 94 L 06/11/20 18:00 55 L 18 179/98 95 06/11/20 17:30 56 L 18 181/98 96 06/11/20 17:00 52 L 173/107 96 06/11/20 16:34 58 L 06/11/20 16:30 58 L 100 06/11/20 16:23 58 L 06/11/20 16:08 99 06/11/20 16:00 58 L 16 98 06/11/20 15:59 58 L 18 98 06/11/20 15:32 98.0 F 60 24 173/106 89 L Intake and Output 06/11/20 06/12/20 06/12/20 22:59 06:59 14:59 Intake Total 480 250 Output Total 300 Balance 180 250 Intake: Oral 480 250 Output: Urine 300 Other: Voiding Method Toilet # Voids 2 Weight 98.4 kg 98.4 kg Results CBC & Chem 7: 06/11/20 16:08 06/11/20 16:08 Labs: Abnormal Lab Results - Last 24 Hours (Table) 06/11/20 06/12/20 Range/Units 16:08 06:20 Chloride 109 H (98-107) mmol/L Creatinine 1.50 H (0.66-1.25) mg/dL Glucose 101 H (74-99) mg/dL POC Glucose (mg/dL) 186 H (75-99) mg/dL Creatine Kinase 50 L (55-170) U/L Thrombosis Risk Factor Assmnt - Choose All That Apply Each Factor Represents 1 point: Abnormal pulmonary function (COPD), Heart failure (<1month) Other Risk Factors: Yes Each Risk Factor Represents 3 Points: Age 75 years or older Thrombosis Risk Factor Assessment Total Risk Factor Score: 5 Thrombosis Risk Factor Assessment Level: High Risk
--- NOTE | 2020-06-12 23:59 | P.DS ---
Providers Date of admission: 06/11/20 18:38 Expected date of discharge: 06/12/20 Attending physician: Tres Mina Primary care physician: Roxie Melendez [facility] Course: Chief Complaint: Cough History present complaint: This is a pleasant 80-year-old patient of Dr. Roxie Melendez. Chronic stable medical conditions include coronary artery disease, CHF with EF of 50-65%, moderate aortic stenosis with sclerosis, COPD, GERD, hyperlipidemia, hypertension, primary osteoarthritis,(s) sleep apnea, hypothyroid. 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 treated with chemotherapy -being followed with Dr. Rutherford. Patient received last chemotherapy in October of this year.. History of Grabiel fundoplication, As in the past has had small bowel obstruction with resection colostomy and reversal of the same. Also had prostate cancer treated with radiation.. Since October of this year patient is put on about 15 pounds. Patient been having increasing cough for at least to 3 weeks. Cough is dry. No fever no chills. Appetite is good. Denies any reflux symptoms. He did follow with his doll maker get out of the office was given antibiotics and steroids. Not with much help. Patient has chronic sinus trouble always bothering him and has a postnasal drip. Denies any edema. Always uses one or 2 pillows. No fever or chills. Baseline some shortness of breath. Patient's cough is the biggest botheration. -Patient is bothered by a postnasal drip with chronic sinus that seems to be the causative reason. Patient does not have any new orthopnea. No edema. Patient some elevation of BNP in the setting of elevated creatinines not significant. Patient has no sputum production no fever no chills. Cough is felt to be from postnasal drip. Patient is an outpatient treatment with steroids antibiotics with Dr. Sheppard no change in symptoms. Claritin-D's been added. Lasix discontinued. Patient does not felt to have CHF exacerbation. Patient follow- up with his doll maker Dr. Sheppard and swatch checker Dr. Kong. Discussed at length with the patient. Physical examination: VITAL SIGNS: 97, 76, 18, 147/81, 95% room air GENERAL: BMI 29.4, sitting up in a chair, awake comfortable EYES: Pupils equal. Conjunctiva normal. NECK: JVD not raised; masses not palpable. HEART: First and second heart sounds are normal; no edema. LUNGS: Respiratory rate increased, decreased breath sounds. ABDOMEN: Soft, distended, , liver spleen not palpable, no masses palpable. PSYCH: Alert and oriented x3; mood and affect normal. INVESTIGATIONS, reviewed in the clinical context: White count 6.7 hemoglobin 13.7 platelets was 18 potassium 4 creatinine 1.5 Troponin I less than 0.012 proBNP 2910 EKG tracing personally reviewed by me-poor baseline in some leads, sinus rhythm Chest x-ray film personally reviewed by me-questionable venous prominence Assessment: -Persistent cough dry from postnasal drip, POA -Chronic diverticulosis, asymptomatic -Chronic Grabiel fundoplication, -Coronary artery disease with a prior history of stent -Stage IV adenocarcinoma of the lung on chemotherapy-last admin October of this year.-Follows with Dr. Rutherford -Normocytic anemia likely secondary to malignancy and chemotherapy -COPD in an ex-smoker- -Hypothyroidism -Essential hypertension -Hyperlipidemia -Obstructive sleep apnea -Chronic congestive heart failure from diastolic dysfunction EF 50-60%. No acute exacerbation. -Moderate aortic stenosis with sclerosis nonrheumatic -Chronic kidney disease. 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 - Disposition: Home Patient Condition at Discharge: Stable Plan - Discharge Summary Discharge Rx Participant: No New Discharge Prescriptions: New Loratadine-Pseudoeph 5-120 mg [Claritin-D 12 Hour] 1 each PO Q12HR #10 tab.er.12h Continue Levothyroxine Sodium [Synthroid] 50 mcg PO DAILY FLUoxetine HCL [PROzac] 20 mg PO HS Omeprazole [PriLOSEC] 40 mg PO HS Folic Acid 1 mg PO HS predniSONE 5 mg PO DAILY Fluticasone/Umeclidin/Vilanter [Trelegy Ellipta 100-62.5-25] 1 puff INHALAT ION RT-DAILY Rivaroxaban [Xarelto] 20 mg PO HS Cholecalciferol [Vitamin D3 (25 Mcg = 1000 Iu)] 1,000 unit PO DAILY L.acidoph,Paracasei, B.lactis [Probiotic] 1 tab PO DAILY Budesonide [Pulmicort] 1 mg INHALATION RT-BID #60 ml Ipratropium-Albuterol Nebulize [Duoneb 0.5 mg-3 mg/3 ml Soln] 3 ml INHALATION QID PRN PRN Reason: Shortness Of Breath Oxymetazoline 0.05% Nasl Christiana [Afrin 0.05% Nasal Christiana] 3 spray NASAL BID PRN PRN Reason: Sinus Symptoms Montelukast Sodium [Singulair] 10 mg PO HS Metoprolol Tartrate [Lopressor] 25 mg PO BID #60 tab Losartan Potassium 50 mg PO DAILY traZODone HCL 50 mg PO HS amLODIPine [Norvasc] 10 mg PO DAILY Discharge Medication List FLUoxetine HCL [PROzac] 20 mg PO HS 08/05/14 [History] Levothyroxine Sodium [Synthroid] 50 mcg PO DAILY 08/05/14 [History] Omeprazole [PriLOSEC] 40 mg PO HS 08/05/14 [History] Folic Acid 1 mg PO HS 02/12/18 [History] Fluticasone/Umeclidin/Vilanter [Trelegy Ellipta 100-62.5-25] 1 puff INHALATION RT-DAILY 11/18/19 [History] predniSONE 5 mg PO DAILY 11/18/19 [History] Cholecalciferol [Vitamin D3 (25 Mcg = 1000 Iu)] 1,000 unit PO DAILY 03/01/20 [History] L.acidoph,Paracasei, B.lactis [Probiotic] 1 tab PO DAILY 03/01/20 [History] Rivaroxaban [Xarelto] 20 mg PO HS 03/01/20 [History] Budesonide [Pulmicort] 1 mg INHALATION RT-BID #60 ml 03/06/20 [Rx] Ipratropium-Albuterol Nebulize [Duoneb 0.5 mg-3 mg/3 ml Soln] 3 ml INHALATION QID PRN 04/05/20 [History] Montelukast Sodium [Singulair] 10 mg PO HS 04/05/20 [History] Oxymetazoline 0.05% Nasl Christiana [Afrin 0.05% Nasal Christiana] 3 spray NASAL BID PRN 04/05/20 [History] Metoprolol Tartrate [Lopressor] 25 mg PO BID #60 tab 04/06/20 [Rx] Losartan Potassium 50 mg PO DAILY 06/11/20 [History] amLODIPine [Norvasc] 10 mg PO DAILY 06/11/20 [History] traZODone HCL 50 mg PO HS 06/11/20 [History] Loratadine-Pseudoeph 5-120 mg [Claritin-D 12 Hour] 1 each PO Q12HR #10 tab.er.12h 06/12/20 [Rx] Follow up Appointment(s)/Referral(s): Anthony Sheppard MD [STAFF PHYSICIAN] - 06/24/20 1:30 pm (MONDAY) Dexter Kong MD [STAFF PHYSICIAN] - 06/22/20 9:30 am (MONDAY ) Roxie Melendez DO [Primary Care Provider] - 06/16/20 1:30 pm (MONDAY) Patient Instructions/Handouts: Postnasal Drip (DC) Activity/Diet/Wound Care/Special Instructions: incentive spirometry - send home fluid restrict - 2000 cc/day Discharge Disposition: HOME SELF-CARE
== END 2020-06-12 13:50 | disposition home or self-care (01) | DRG 155 ==
LOC: EC 15:27 → 3SCARD 18:38
PROVIDERS: ADMIT Hospitalist; ATTEND Hospitalist
DX: J34.9 Unspecified disorder of nose and nasal sinuses (principal); I13.0 Hypertensive heart and chronic kidney disease with heart failure and stage 1 through stage 4 chronic kidney disease, or unspecified chronic kidney disease; I50.32 Chronic diastolic (congestive) heart failure; C34.90 Malignant neoplasm of unspecified part of unspecified bronchus or lung; C78.2 Secondary malignant neoplasm of pleura; Z87.891 Personal history of nicotine dependence; G47.33 Obstructive sleep apnea (adult) (pediatric); Z20.828 Contact with and (suspected) exposure to other viral communicable diseases; D63.0 Anemia in neoplastic disease; D64.81 Anemia due to antineoplastic chemotherapy; T45.1X5A Adverse effect of antineoplastic and immunosuppressive drugs, initial encounter; Z85.46 Personal history of malignant neoplasm of prostate; Z92.21 Personal history of antineoplastic chemotherapy; Z92.3 Personal history of irradiation; E03.9 Hypothyroidism, unspecified; E78.5 Hyperlipidemia, unspecified; I25.10 Atherosclerotic heart disease of native coronary artery without angina pectoris; I35.0 Nonrheumatic aortic (valve) stenosis; I48.91 Unspecified atrial fibrillation; J44.9 Chronic obstructive pulmonary disease, unspecified; K21.9 Gastro-esophageal reflux disease without esophagitis; K57.90 Diverticulosis of intestine, part unspecified, without perforation or abscess without bleeding; M19.91 Primary osteoarthritis, unspecified site; N18.2 Chronic kidney disease, stage 2 (mild); Z79.01 Long term (current) use of anticoagulants; Z79.890 Hormone replacement therapy; Z79.899 Other long term (current) drug therapy; Z80.0 Family history of malignant neoplasm of digestive organs; Z80.1 Family history of malignant neoplasm of trachea, bronchus and lung; Z85.828 Personal history of other malignant neoplasm of skin; Z95.5 Presence of coronary angioplasty implant and graft; Z98.42 Cataract extraction status, left eye; Z90.89 Acquired absence of other organs; Z96.653 Presence of artificial knee joint, bilateral; Z96.612 Presence of left artificial shoulder joint; Z96.611 Presence of right artificial shoulder joint; Z90.49 Acquired absence of other specified parts of digestive tract; Z87.81 Personal history of (healed) traumatic fracture; Z80.7 Family history of other malignant neoplasms of lymphoid, hematopoietic and related tissues; Z87.19 Personal history of other diseases of the digestive system
CPT/HCPCS: 36415; 71046; 80053; 82550; 83605; 83735; 83880; 84484; 85025; 85610; 85730; 87040; 93005; 94640; 96374; 96375; 99285

== ENCOUNTER 2020-07-06 07:57 | Day surgery (SDC) | payer MEDICARE ==
[2020-07-03 13:29] VITALS: BMI 29.4
[~2020-07-06 07:57] MED LIST changes: +ALPRAZolam 0.25 MG TAB PO PRN; +ALPRAZolam 0.5 MG TAB PO PRN; +ASPIRIN 325 MG TAB PO STA; +ATORVASTATIN 80 MG TAB PO STA; -COSYNTROPIN 0.25 MG VIAL IVP ONE; +NITROGLYCERIN SL TABS 0.4 MG TAB SUBLINGUAL PRN; +SODIUM CHLORIDE 0.9% 1,000 ML in EMPTY BAG 1 BAG IV ONE; -SODIUM CHLORIDE 0.9% 500 ML 500 ML in EMPTY BAG 1 BAG IV PRN
[2020-07-06] MEDS ORDERED: SODIUM CHLORIDE 0.9% 1,000 ML IV ONE (08:22)
[2020-07-06 08:25] VITALS: TEMP 97.8
[2020-07-06] MEDS ORDERED: fentaNYL (PF) 50 MCG/ML 2 ML AMP ONE (10:29)
[2020-07-06] MEDS ORDERED: MIDAZOLAM 2 MG/2 ML VIAL IV ONE ×2 (10:45→11:22)
[2020-07-06] MEDS ORDERED: BENZOCAINE SPRAY 1 CAN MUCOUS MEM ONE (10:45)
[2020-07-06] MEDS ORDERED: fentaNYL (PF) 50 MCG/ML 2 ML AMP IV ONE (10:45)
[2020-07-06] MEDS ORDERED: LIDOCAINE 1% INJ 10MG/ML (20 ML MDV) ONE (10:49)
[2020-07-06] MEDS ORDERED: IV FLUID CONTINUATION 1,000 ML IV ONE (10:59)
[2020-07-06] MEDS ORDERED: LIDOCAINE 1% INJ 10MG/ML (20 ML MDV) SQ ONE (11:18)
--- NOTE | 2020-07-06 11:36 | ECHOT ---
TRANSESOPHAGEAL ECHOCARDIOGRAM DATE OF SERVICE: 07/06/2020 PERFORMING PHYSICIAN: Dexter Kong MD. PROCEDURE PERFORMED: Transesophageal echocardiogram. INDICATION: Aortic stenosis. COMPLICATION: None. LEVEL OF SEDATION: Moderate with sedation length of 15 minutes. PROCEDURE DESCRIPTION: After obtaining an informed consent, the patient was brought to the transesophageal echocardiogram suite. A pulse oximetry and heart rate monitors were attached to the patient. Subsequently, the transesophageal echocardiogram probe was advanced through the bite guard to the mid esophageal where 2D echocardiogram images as well as color Doppler and pulse Doppler, and continuous-wave Dopplers were obtained from multiple angles. Particular attention was made to the aortic valve. The procedure was completed without any complication. FINDING: The left ventricular dimension and systolic function appeared to be within normal limits. The ejection fraction appeared to be in the range of 60%. The right ventricle appeared to be of normal size and function. The left atrium and right atrium are severely dilated. The left atrial appendage appeared to be free from any thrombus. The interatrial septum appeared to be intact. The aortic valve appeared to be thickened and calcified with evidence of moderate to severe aortic stenosis with a mean gradient of 36 and peak of 58 mmHg. The mitral valve seems to be also thickened with moderate MR. There was mild tricuspid regurgitation seen and mild pulmonic insufficiency seen. CONCLUSION: 1. Normal left ventricular dimension and systolic function. 2. Normal right ventricular dimension and systolic function. 3. Severe biatrial enlargement. 4. Aortic sclerosis with moderate to severe aortic stenosis with a mean gradient of 36 and peak of 58 mmHg. 5. Thickened mitral valve leaflets with moderate to severe MR. 6. Normal tricuspid valve and pulmonic valve. 7. No evidence of pericardial effusion. MMODL / IJN: [id number] /
[2020-07-06] MEDS ORDERED: BIVALIRUDIN 250 MG VIAL IV ONE (11:45)
[2020-07-06] MEDS ORDERED: SODIUM CHLORIDE 0.9% 50 ML BAG ONE (11:45)
[2020-07-06] MEDS ORDERED: BIVALIRUDIN BOLUS 250 MG/50 ML IV ONE (11:45)
[2020-07-06] MEDS ORDERED: IOPAMIDOL-370 125ML BTL INJ ONE (11:51)
[2020-07-06] MEDS ORDERED: RX INFO: IV CONTRAST WAS GIVEN 1 EACH MISC MISCELLANE PRN (11:54)
[2020-07-06] MEDS ORDERED: SODIUM CHLORIDE 0.9% 1,000 ML IV SCH (12:00)
[2020-07-06] MEDS ORDERED: hydrALAZINE HCL 20 MG/ML 1 ML VIAL IVP STA (13:52)
[2020-07-06] MEDS ORDERED: ACETAMINOPHEN TAB 325 MG TAB PO PRN (18:09)
--- NOTE | 2020-07-06 20:30 | CC ---
CARDIAC CATHETERIZATION REPORT DATE OF SERVICE: 07/06/2020 PERFORMING PHYSICIAN: Dexter Kong M.D. PROCEDURES PERFORMED: 1. Selective right and left coronary angiogram. 2. Right heart catheterization. INDICATION: This is an 80-year-old gentleman with history of lung cancer, currently in remission, as well as known aortic stenosis, who was experiencing increasing shortness of breath with exertion. He was brought today to undergo a ALEA and heart catheterization. He underwent a ALEA which showed evidence of moderate to severe aortic stenosis with a mean gradient of 38 mmHg, and he was brought today to undergo heart catheterization. APPROACH: Right common femoral vein and right common femoral artery. COMPLICATIONS: None. LEVEL OF SEDATION: Moderate, with sedation length of 31 minutes. And please add to the procedure performed is right heart catheterization. PROCEDURE DESCRIPTION: After obtaining informed consent, the patient was brought to the cardiac calibration laboratory technician. The right common femoral vein was cannulated using micropuncture technique. The micropuncture wire passed easily. Then I placed a 6-Lao sheath at the vein. After that I placed a 6-Lao sheath in the right common femoral artery after the right common femoral artery was cannulated using the same technique. Right heart catheterization was performed using a 6-Lao Kendall catheter. Selective right and left coronary angiogram was performed using JR4 and JL3.5 catheters. The procedure was completed without any complication. HEMODYNAMICS: 1. The pulmonary capillary wedge pressure was 11 mmHg. 2. PA pressures were as follows: Systolic 30 and diastolic 7 and mean of 18 mmHg. 3. RV pressures were as follows: Systolic 34 and end-diastolic of 8 mmHg. 4. RA pressure was 4 mmHg. 5. Aortic pressure was 180 systolic over 77 diastolic. SELECTIVE CORONARY ANGIOGRAM: 1. The right coronary artery is a large-caliber vessel. It is a dominant vessel. The RCA is calcified. The RCA in the mid portion has intermediate to severe lesion that appeared to be in the range of 60% to 70%. Distally it appeared to be normal and bifurcates into PDA and PLV branches. Both appeared to be angiographically normal. 2. The left main is angiographically normal. It bifurcates into LCX and ramus intermedius and left anterior descending artery. 3. The left circumflex is a large-caliber vessel. It is a nondominant vessel. The left circumflex itself appeared to have mild disease only and in the mid portion gives rise to OM1, which has mild disease only. 4. The ramus intermedius appeared to be a large-caliber vessel with a tight lesion in the mid portion that appeared to be in the range of 70%. 5. The LAD. The proximal LAD appeared to have mild disease only. The mid LAD appeared to have mild disease only as well, and the LAD distally appeared to be normal. The LAD gives rise to a large diagonal branch which has a tight lesion that appeared to be in the range of 70% to 80%. Please note that the left coronary system is extremely calcified as well. CONCLUSION: 1. Calcified right and left coronary systems. 2. Intermediate to severe disease involving the RCA in the mid portion. 3. Severe disease involving the ramus intermedius coronary artery. 4. Severe disease involving the first diagonal branch of the LAD which is a large- caliber vessel. POST-PROCEDURE MANAGEMENT: 1. Evaluate the patient for CABG. 2. Consider PCI of the ramus intermedius as well as diagonal branch if the patient is going for CABG. 3. FFR of the RCA as well. MMODL / IJN: [id number] /
[2020-07-06 21:04] VITALS: BP 162/81; PULSE 52; RESP 18
== END 2020-07-06 22:19 ==
LOC: CATHCVL 07:57 → 3NCARDOBS 15:00 → CATHCVL 22:19
PROVIDERS: ATTEND Internal Medicine Interventional Cardiology
DX: I08.0 Rheumatic disorders of both mitral and aortic valves (principal); I25.10 Atherosclerotic heart disease of native coronary artery without angina pectoris; I48.0 Paroxysmal atrial fibrillation; I11.0 Hypertensive heart disease with heart failure; I50.33 Acute on chronic diastolic (congestive) heart failure; E78.5 Hyperlipidemia, unspecified; F17.210 Nicotine dependence, cigarettes, uncomplicated; F17.290 Nicotine dependence, other tobacco product, uncomplicated; Z86.73 Personal history of transient ischemic attack (TIA), and cerebral infarction without residual deficits; Z85.118 Personal history of other malignant neoplasm of bronchus and lung; Z79.890 Hormone replacement therapy; Z79.899 Other long term (current) drug therapy; Z79.01 Long term (current) use of anticoagulants; Z82.49 Family history of ischemic heart disease and other diseases of the circulatory system
CPT/HCPCS: 93312; 93320; 93325; 93456; C1887; C1751; C1894; C1769 ×2; J2250; J0360; J2001; J3010; J0583; Q9967

== ENCOUNTER 2020-07-31 09:43 | Day surgery (SDC) | payer MEDICARE ==
[2020-07-30 13:00] VITALS: BMI 29.4
[2020-07-31] MEDS ORDERED: LIDOCAINE 1% INJ 10MG/ML (20 ML MDV) ONE (10:22)
[2020-07-31 10:32] LABS: Basophils # (A) 0.1 k/uL (0-0.2); Basophils % (A) 1 %; Eosinophils # (A) 0.2 k/uL (0-0.7); Eosinophils % (A) 2 %; HCT 43.5 % (39.0-53.0); HGB 14.7 gm/dL (13.0-17.5); Lymphocytes # (A) 1.8 k/uL (1.0-4.8); Lymphocytes % (A) 21 %; MCH 30.4 pg (25.0-35.0); MCHC 33.7 g/dL (31.0-37.0); MCV 90.2 fL (80.0-100.0); Mean Platelet Volume 7.2; Monocytes # (A) 0.6 k/uL (0-1.0); Monocytes % (A) 7 %; Neutrophils # (A) 5.7 k/uL (1.3-7.7); Neutrophils % (A) 68 %; Platelet Count 206 k/uL (150-450); RBC 4.82 m/uL (4.30-5.90); WBC 8.4 k/uL (3.8-10.6)
[2020-07-31 10:49] LABS: Calcium 10.2 mg/dL (8.4-10.2)
[2020-07-31] MEDS ORDERED: MIDAZOLAM 2 MG/2 ML VIAL IV ONE (11:00)
[2020-07-31] MEDS ORDERED: LIDOCAINE 1% INJ 10MG/ML (20 ML MDV) SQ ONE (11:01)
[2020-07-31] MEDS ORDERED: BIVALIRUDIN BOLUS 250 MG/50 ML IV ONE (11:14)
[2020-07-31] MEDS ORDERED: BIVALIRUDIN 250 MG in SODIUM CHLORIDE 0.9% 50 ML IV ONE ×2 (11:14→11:59)
[2020-07-31] MEDS: MIDAZOLAM 2 MG/2 ML VIAL IV ONE ×2 (11:20→11:30)
[2020-07-31] MEDS ORDERED: niCARdipine 25 MG/10 ML VIAL ONE (11:22)
[2020-07-31] MEDS ORDERED: fentaNYL (PF) 50 MCG/ML 2 ML AMP ONE (11:23)
[2020-07-31] MEDS ORDERED: fentaNYL (PF) 50 MCG/ML 2 ML AMP IV ONE (11:26)
[2020-07-31] MEDS ORDERED: NITROGLYCERIN SL TABS 0.4 MG TAB SUBLINGUAL ONE ×2 (11:28→11:30)
[2020-07-31] MEDS ORDERED: hydrALAZINE HCL 20 MG/ML 1 ML VIAL ONE ×2 (11:33→13:56)
[2020-07-31] MEDS ORDERED: ENALAPRILAT 1.25 MG/ML 1 ML VIAL ONE (11:33)
[2020-07-31] MEDS ORDERED: hydrALAZINE HCL 20 MG/ML 1 ML VIAL IV ONE (11:37)
[2020-07-31] MEDS ORDERED: ENALAPRILAT 1.25 MG/ML 1 ML VIAL IV ONE (11:38)
[2020-07-31] MEDS ORDERED: CLOPIDOGREL 75 MG TAB ONE (11:42)
[2020-07-31] MEDS: NITROGLYCERIN 1000MCG/10ML SYRINGE INTRACORON ONE ×2 (11:47→12:09)
[2020-07-31] MEDS ORDERED: niCARdipine Syringe (1,000 mcg/10 mL) INTRACORON ONE (11:47)
[2020-07-31] MEDS ORDERED: CLOPIDOGREL 75 MG TAB PO ONE (11:52)
[2020-07-31] MEDS ORDERED: IOPAMIDOL-370 125ML BTL INJ ONE (12:10)
[2020-07-31] MEDS ORDERED: OXYMETAZOLINE 0.05% NASL SPRAY 1 SPRAY BOTTLE NASAL PRN (12:22)
[2020-07-31] MEDS ORDERED: IPRATROPIUM-ALBUTEROL 3 ML NEB INHALATION PRN (12:22)
[2020-07-31] MEDS ORDERED: NITROGLYCERIN SL TABS 0.4 MG TAB SUBLINGUAL PRN (12:23)
[2020-07-31] MEDS ORDERED: ATROPINE SULFATE 0.1 MG/ML 10ML SYRINGE IV PRN (12:23)
[2020-07-31] MEDS ORDERED: RX INFO: IV CONTRAST WAS GIVEN 1 EACH MISC MISCELLANE PRN (12:23)
[2020-07-31] MEDS ORDERED: ZOLPIDEM 5 MG TAB PO PRN (12:23)
[2020-07-31] MEDS ORDERED: MAG HYDROX/AL HYDROX/SIMETH 30 ML CUP PO PRN (12:23)
[2020-07-31] MEDS ORDERED: SODIUM CHLORIDE 0.9% 1,000 ML IV SCH (12:30)
--- NOTE | 2020-07-31 12:53 | PTCA ---
PERCUTANEOUSTRANS CORORONARY ANGIOGRAPHY DATE OF SERVICE: 07/31/2020. PERFORMING PHYSICIAN: Dexter Kong MD. PROCEDURE PERFORMED: 1. Atherectomy of the right coronary artery using the orbital atherectomy device from [facility]. 2. Successful stenting of the mid right coronary artery using 3.0 x 23 and 3.5 x 28 mm Xience drug-eluting stent with an excellent angiographic results. 3. Successful stenting of the first diagonal branch of the LAD using 2.0 x 12 mm [place] drug-eluting stent with an excellent angiographic results. 4. Selective right common femoral artery angiogram. INDICATION: This is an 80-year-old gentleman who was diagnosed recently with severe symptomatic aortic stenosis who underwent a heart catheterization which showed extremely calcified right and left coronary systems with severe disease involving the RCA and critical disease involving the diagonal branch. He was brought today to undergo an angioplasty. APPROACH: Right common femoral artery. COMPLICATION: None. LEVEL OF SEDATION: Moderate with sedation length of 76 minutes. PROCEDURE DESCRIPTION: After obtaining an informed consent, the patient was brought to the cardiac cath lab tech. The right common femoral artery was cannulated using micropuncture technique, the micropuncture wire passed easily, then I placed a 6-Greenlandic sheath 23 cm at the right common femoral artery. I did also place a temporary pacemaker in the right ventricle through the sheath in the right common femoral vein. After that, the temporary pacemaker was advanced through the venous sheath all the way to the right ventricle where the pacemaker was placed on a backup of 50 beats per minute and amp of 5. Subsequently, I did engage the RCA using JR4 guide. I did selective right coronary angiogram. I did wire the RCA using the IRL Connecter Advantage wire. Atherectomy of the RCA was performed using the orbital atherectomy device under low speed x2. After that, I did balloon angioplasty using 3.0 x 15 mm balloon. Subsequently, I deployed in the mid RCA 3 drug-eluting stents. Distally, I deployed a 3 0 x 23 and then proximal to that I deployed 3.5 x 28 mm. The following angiogram showed excellent angiographic results. For the diagonal, I did engage the left main using JL4.5 guide. I did wire the diagonal using a run-through and wire the LAD using a whisper wire. After that, I did balloon angioplasty using 2.0 x 12 mm balloon before I deployed 2.0 x 12 mm [place] drug- eluting stent where the stent also was positioned under fluoroscopy guidance and deployed under its nominal pressure. The following angiogram showed excellent angiographic results and the procedure was completed without any complication. POSTPROCEDURE MANAGEMENT: 1. Dual anti-platelet therapy. 2. Risk factor modifications. 3. Follow up with the patient. ALMA ROSA / SANDEE: [id number] /
[2020-07-31] MEDS ORDERED: hydrALAZINE HCL 20 MG/ML 1 ML VIAL IVP STA (14:00)
[2020-07-31] MEDS ORDERED: ACETAMINOPHEN TAB 325 MG TAB ONE (15:08)
[2020-07-31] MEDS ORDERED: ACETAMINOPHEN TAB 325 MG TAB PO PRN (18:47)
[2020-07-31] MEDS: METOPROLOL TARTRATE 25 MG TAB PO SCH (20:48)
[2020-07-31] MEDS: LORATADINE-PSEUDOEPH 5-120 MG 1 EACH TAB.ER.12H PO SCH (20:51)
[2020-07-31] MEDS ORDERED: ATORVASTATIN 40 MG TAB PO SCH (21:00)
[2020-07-31] MEDS ORDERED: PANTOPRAZOLE 40 MG TABLET PO SCH (21:00)
[2020-07-31] MEDS ORDERED: LACTOBACILLUS ACIDOPH & BULGAR 1 EACH PACKET PO SCH (21:00)
[2020-07-31] MEDS ORDERED: FOLIC ACID 1 MG TAB PO SCH (21:00)
[2020-07-31] MEDS ORDERED: MONTELUKAST 10 MG TAB PO SCH (21:00)
[2020-08-01 04:30] VITALS: TEMP 97.8
[2020-08-01] MEDS ORDERED: LEVOTHYROXINE 50 MCG TAB PO SCH (06:30)
[2020-08-01 07:48] LABS: Basophils # (A) 0.1 k/uL (0-0.2); Basophils % (A) 1 %; Eosinophils # (A) 0.1 k/uL (0-0.7); Eosinophils % (A) 2 %; HCT 42.2 % (39.0-53.0); HGB 14.2 gm/dL (13.0-17.5); Lymphocytes # (A) 1.6 k/uL (1.0-4.8); Lymphocytes % (A) 21 %; MCH 30.2 pg (25.0-35.0); MCHC 33.6 g/dL (31.0-37.0); MCV 89.8 fL (80.0-100.0); Mean Platelet Volume 7.2; Monocytes # (A) 0.5 k/uL (0-1.0); Monocytes % (A) 6 %; Neutrophils # (A) 5.3 k/uL (1.3-7.7); Neutrophils % (A) 69 %; Platelet Count 179 k/uL (150-450); RDW 13.9 % (11.5-15.5); WBC 7.8 k/uL (3.8-10.6)
[2020-08-01 07:59] VITALS: PULSE 68
[2020-08-01 08:00] LABS: Potassium 4.3 mmol/L (3.5-5.1)
[2020-08-01] MEDS ORDERED: SYMBICORT 80-4.5 MCG INHALER INHALATION SCH (08:00)
[2020-08-01] MEDS ORDERED: IPRATROPIUM 0.5 MG/2.5 ML NEBU INHALATION SCH (08:00)
[2020-08-01] MEDS ORDERED: NON FORMULARY DRUG (Fluticasone/Umeclidin/Vilanter [Trelegy Ellipta 100-62.5-25] 1 EACH Bl INHALATION SCH (08:00)
[2020-08-01 08:23] VITALS: BP 157/91; RESP 16
[2020-08-01] MEDS: METOPROLOL TARTRATE 25 MG TAB PO SCH (08:28)
[2020-08-01] MEDS: LORATADINE-PSEUDOEPH 5-120 MG 1 EACH TAB.ER.12H PO SCH (08:29)
[2020-08-01] MEDS ORDERED: FLUoxetine HCL 20 MG CAP PO SCH (09:00)
[2020-08-01] MEDS ORDERED: POTASSIUM CHLORIDE ER 10 MEQ TAB.ER.PRT PO SCH (09:00)
[2020-08-01] MEDS ORDERED: LOSARTAN 50 MG TAB PO SCH (09:00)
[2020-08-01] MEDS ORDERED: predniSONE 5 MG TAB PO SCH (09:00)
[2020-08-01] MEDS ORDERED: CHOLECALCIFEROL 1,000 UNIT TAB PO SCH (09:00)
[2020-08-01] MEDS ORDERED: FUROSEMIDE 20 MG TAB PO SCH (09:00)
[2020-08-01] MEDS ORDERED: ASPIRIN 81 MG PO STA (10:30)
--- NOTE | 2020-08-01 11:41 | DS ---
DISCHARGE SUMMARY ADMISSION DATE: July 31, 2020. DISCHARGE DATE: August 01, 2020. BRIEF HISTORY: This is a pleasant 80-year-old gentleman with known severe aortic stenosis, as well as coronary artery disease, who was admitted yesterday and underwent successful atherectomy and stenting of the RCA along with successful stenting of the diagonal branch of the LAD with excellent angiographic results and without any complication from right groin approach. The patient was seen this morning. He is asymptomatic from a cardiovascular standpoint of view. The right groin is soft and nontender and without any bruises. The patient is going to be discharged home on dual anti-platelet therapy along with a lower dose of oral anticoagulation with Xarelto. He is going to be seen in the office next week. PLAN: The long-term plan is to proceed with TAVR. ALMA ROSA / SANDEE: [id number] /
[2020-08-01] MEDS ORDERED: CLOPIDOGREL 75 MG TAB PO SCH (12:00)
[2020-08-02] MEDS ORDERED: ASPIRIN 81 MG PO SCH (09:00)
== END 2020-08-01 10:50 ==
LOC: CATHCVL 09:43 → 1SOBS 15:49 → CATHCVL 08-01 10:50
PROVIDERS: ATTEND Internal Medicine Interventional Cardiology
DX: I25.10 Atherosclerotic heart disease of native coronary artery without angina pectoris (principal); I25.84 Coronary atherosclerosis due to calcified coronary lesion; I10 Essential (primary) hypertension; I35.0 Nonrheumatic aortic (valve) stenosis; I65.29 Occlusion and stenosis of unspecified carotid artery; Z86.73 Personal history of transient ischemic attack (TIA), and cerebral infarction without residual deficits; Z82.49 Family history of ischemic heart disease and other diseases of the circulatory system; E78.5 Hyperlipidemia, unspecified; Z79.01 Long term (current) use of anticoagulants; Z79.890 Hormone replacement therapy; Z79.899 Other long term (current) drug therapy
CPT/HCPCS: 94640 ×2; 80048 ×2; 85025 ×2; C9600; C9602; C1769 ×7; C1887 ×3; C1725; C1894 ×2; C1724; C1874 ×2; J2250; J0360; J2001; J3010; J0583; J7512; Q9967

== ENCOUNTER → 2021-01-19 | Outpatient (CLI) | payer MEDICARE ==
--- NOTE | 2021-01-19 11:41 | CT ---
EXAMINATION TYPE: CT ChestAbdPelvis wo con DATE OF EXAM: 01/19/2021 COMPARISON: 06/01/2020 HISTORY: Follow up lung cancer CT DLP: 1192.6mGycm Unenhanced CT of the Chest, Abdomen and Pelvis Unenhanced CT of the chest ,abdomen and pelvis is performed. The lack of intravenous contrast limits evaluation of the solid and hollow viscera. Oral contrast: Yes CT Chest: LUNGS: Left lower lobe parenchymal scarring is unchanged. Subpleural nodule right upper lobe medially measures 2.7 cm versus 2.6 cm previously. Right basilar subpleural nodular density image 52 is uncha nged at 1.2 cm. 3 mm right lower lobe pulmonary nodule unchanged. Groundglass density right infrahilar region may reflect infiltrate of infectious etiology. Correlate clinically. MEDIASTINUM: Thoracic aorta is of normal caliber. The heart is not enlarged. No evidence for media stinal mass or adenopathy. HILAR STRUCTURES: No evidence for mass. No hilar adenopathy is appreciated. OTHER: No significant abnormality. CONTRAST CT ABDOMEN AND PELVIS: LIVER/GB: Small gallstones noted. No space occupying hepatic lesion. Biliary tree is of normal calibe r. PANCREAS: No inflammation. No distinct mass. SPLEEN: No splenic enlargement. No lesion seen. ADRENALS: No nodule. No thickening. KIDNEYS/BLADDER: No hydronephrosis. No nephrolithiasis. Simple cyst left kidney unchanged. BOWEL: Normal appendix. Normal bowel caliber. No inflammation. GENITAL ORGANS: No gross abnormality. LYMPH NODES: No greater than 1cm abdominal or pelvic lymph nodes are appreciated. AORTA: No significant abnormality. OSSEOUS STRUCTURES: Degenerative changes OTHER: No significant additional abnormality is seen. IMPRESSION: 1. Stable right upper lobe subpleural nodule and additional nodules as noted. No new nodules seen.
== END | disposition home or self-care (01) ==
LOC: RADCTMAIN 09:05
PROVIDERS: ATTEND Internal Medicine Hematology & Oncology
DX: C34.11 Malignant neoplasm of upper lobe, right bronchus or lung (principal); R91.8 Other nonspecific abnormal finding of lung field
CPT/HCPCS: 36415; 71250; 74176; 82565; 84520

== ENCOUNTER 2021-03-31 11:39 | Day surgery (SDC) | payer MEDICARE ==
[2021-03-26 14:52] VITALS: BMI 29.8
[~2021-03-31 11:39] MED LIST changes: +ALBUTEROL NEB (CONC) 2.5 MG/0.5 ML INHALATION ONE; -ALPRAZolam 0.25 MG TAB PO PRN; -ALPRAZolam 0.5 MG TAB PO PRN; -ASPIRIN 325 MG TAB PO STA; -ATORVASTATIN 80 MG TAB PO STA; +LACTATED RINGERS 1,000 ML IV SCH; +LIDOCAINE 2% (PF) 20 MG/ML 5 ML VIAL INHALATION ONE; +LIDOCAINE VISCOUS 300 MG/15 ML CUP MUCOUS MEM ONE; -NITROGLYCERIN SL TABS 0.4 MG TAB SUBLINGUAL PRN; -SODIUM CHLORIDE 0.9% 1,000 ML in EMPTY BAG 1 BAG IV ONE
[2021-03-31 12:02] VITALS: TEMP 96
[2021-03-31] MEDS ORDERED: GLYCOPYRROLATE 0.2 MG/ML 2 ML VIAL ONE (12:50)
[2021-03-31] MEDS ORDERED: PROPOFOL 10 MG/ML 20 ML VIAL IV ONE (12:50)
[2021-03-31] MEDS ORDERED: KETAMINE 10 MG/ML 20 ML VIAL ONE (12:50)
[2021-03-31] MEDS ORDERED: MIDAZOLAM 2 MG/2 ML VIAL ONE (12:50)
[2021-03-31] MEDS ORDERED: LIDOCAINE 1% INJ 10MG/ML (20 ML MDV) ONE (12:50)
[2021-03-31] MEDS ORDERED: LIDOCAINE 2% (PF) 20 MG/ML 2 ML VIAL MISCELLANE ONE (13:05)
[2021-03-31 13:16] VITALS: PULSE 96
[2021-03-31 13:32] VITALS: BP 128/85; RESP 20
--- NOTE | 2021-03-31 15:46 | OP ---
OPERATIVE REPORT PROCEDURE: Bronchoscopy and bronchoalveolar lavage of the left lower lobe. PREOPERATIVE DIAGNOSIS: History of lung cancer, recurrent left lower lobe pneumonia, possible recurrent malignancy involving the left lower lobe. POSTOPERATIVE DIAGNOSIS: History of lung cancer, recurrent left lower lobe pneumonia, possible recurrent malignancy involving the left lower lobe. ANESTHESIA USED: IV conscious sedation by COMMERCIAL CREDIT OFFICER. DESCRIPTION: The patient was prepared according to the bronchoscopy protocol. He was brought into suite #1, and he was placed in the supine position, O2 was applied via nasal cannula, and we monitored his O2 saturation continuously via pulse oximetry. We will also monitored his cardiac rhythm continuously and blood pressure intermittently. After adequate IV conscious sedation, lidocaine was applied in the left naris, and the bronchoscope was advanced through the left nares all the way down to the vocal cords. The vocal cords were noted to be patent, no evidence of any lesions on the vocal cords. Lidocaine was applied over the vocal cords, and the bronchoscope was advanced further down, and a thorough examination was done of the trachea, sloan, right upper lobe, right middle lobe, right lower lobe, left upper lobe lingula and left lower lobe. There was evidence of bronchomalacia, however, there was no evidence of endobronchial tumors anywhere in the lungs. There was minimal redness in the left lower lobe bronchus, and seems to be friable, lavage of the left lower lobe was done, and the fluid from the left lower lobe was sent for different diagnostic studies. Again, there were no significant secretions, and no significant endobronchial pathology except for the mucosa being hyperemic and fragile/friable. The procedure was tolerated. No complications. MMODL / IJN: [id number] /
[2021-03-31 20:52] LABS: Appearance,BF Hazy; RBC, Body Fluid 510 /uL
[2021-03-31 20:53] LABS: Nucleated Cells, Body Fluid 55 /uL
[2021-03-31 20:56] LABS: Mononuclear WBC,Body Fluid 89 %; Polynuclear WBC,Body Fluid 11 %; Total Cells Counted,Body Fluid 100
== END 2021-03-31 14:04 | disposition home or self-care (01) ==
LOC: ORWHC2ENDO 11:39
PROVIDERS: ATTEND Internal Medicine
DX: Z87.01 Personal history of pneumonia (recurrent) (principal); I25.10 Atherosclerotic heart disease of native coronary artery without angina pectoris; I10 Essential (primary) hypertension; E78.5 Hyperlipidemia, unspecified; J44.9 Chronic obstructive pulmonary disease, unspecified; G47.33 Obstructive sleep apnea (adult) (pediatric); Z85.118 Personal history of other malignant neoplasm of bronchus and lung; Z85.46 Personal history of malignant neoplasm of prostate; F41.8 Other specified anxiety disorders; Z79.01 Long term (current) use of anticoagulants; Z99.81 Dependence on supplemental oxygen
CPT/HCPCS: 87798 ×3; 87496; 87498; 87529; 88108; 88305; 89050; 87252; 87502; 87634; 87070; 87205; 87116; 87102; 87206; 31624; J2250; J2001 ×2; J2704

== ENCOUNTER 2021-04-12 07:15 | Inpatient (IN) | payer MEDICARE ==
[2021-04-12 08:10] LABS: Basophils # (A) 0.1 k/uL (0-0.2); Basophils % (A) 1 %; Eosinophils # (A) 0.3 k/uL (0-0.7); Eosinophils % (A) 4 %; HCT 38.2 % (39.0-53.0); Lymphocytes # (A) 1.2 k/uL (1.0-4.8); Lymphocytes % (A) 18 %; Mean Platelet Volume 7.9; Monocytes # (A) 0.5 k/uL (0-1.0); Monocytes % (A) 7 %; Neutrophils # (A) 4.4 k/uL (1.3-7.7); Neutrophils % (A) 66 %; Platelet Count 217 k/uL (150-450); RDW 15.1 % (11.5-15.5); WBC 6.7 k/uL (3.8-10.6)
[2021-04-12 08:19] LABS: Albumin 3.8 g/dL (3.5-5.0); Calcium 10.1 mg/dL (8.4-10.2); Magnesium 1.4 mg/dL (1.6-2.3); Potassium 4.5 mmol/L (3.5-5.1); Total Bilirubin 0.4 mg/dL (0.2-1.3); Total Protein 6.4 g/dL (6.3-8.2)
[2021-04-12 08:21] LABS: INR 0.9 (<1.2); Partial Thromboplastin Time 25.2 sec (22.0-30.0); Prothrombin Time 10.2 sec (9.0-12.0)
--- NOTE | 2021-04-12 08:36 | XR ---
EXAMINATION TYPE: XR chest 2V DATE OF EXAM: 04/12/2021 COMPARISON: 03/24/2021 HISTORY: Shortness of breath TECHNIQUE: Frontal and lateral views of the chest are obtained. FINDINGS: Scattered senescent parenchymal changes noted. Hyperinflation compatible with COPD. Chronic appearing density left lower lobe although there is increasing left perihilar density which m ay reflect developing infiltrate. Correlate clinically. Heart size is stable. Mediastinal structures are stable and grossly unremarkable. No evidence for hilar prominence. Degenerative changes dorsal spine. IMPRESSION: 1. Chronic appearing density left lower lobe although there is increasing left perihilar density whic h may reflect developing infiltrate. Correlate clinically.
[2021-04-12] MEDS ORDERED: hydrALAZINE HCL 20 MG/ML 1 ML VIAL IVP STA (08:41)
[2021-04-12] MEDS ORDERED: ONDANSETRON 4 MG/2 ML VIAL IVP STA (09:05)
[2021-04-12] MEDS ORDERED: NITROGLYCERIN SL TABS 0.4 MG TAB SUBLINGUAL PRN (09:09)
--- NOTE | 2021-04-12 09:09 | ED ---
General Adult HPI - General Chief complaint: Shortness of Breath Stated complaint: JULIANNA Time Seen by Provider: 04/12/21 07:29 Source: patient, family, RN notes reviewed Mode of arrival: wheelchair Limitations: physical limitation - History of Present Illness Initial comments: This 81-year-old male presents emergency Department chief complaint of shortness breath, cough congestion. Patient states her bronchoscopy by Dr. Najera 2 weeks ago. He's had increasing symptoms since this. Patient states he feels like he has pneumonia again patient states he felt like he needed his oxygen at home. Pulse ox around [id number]. Patient states he has some chest discomfort along with this. No noted fever but states he felt that he's had a fever. - Related Data Home Medications Medication Instructions Recorded Confirmed FLUoxetine HCL [PROzac] 20 mg PO QAM 08/05/14 04/12/21 Levothyroxine Sodium [Synthroid] 50 mcg PO QAM 08/05/14 04/12/21 Omeprazole [PriLOSEC] 40 mg PO HS 08/05/14 04/12/21 Folic Acid 1 mg PO HS 02/12/18 04/12/21 Fluticasone/Umeclidin/Vilanter 1 puff INHALATION RT-DAILY 11/18/19 04/12/21 [Trelegy Ellipta 100-62.5-25] L.acidoph,Paracasei, B.lactis 1 cap PO HS 03/01/20 04/12/21 [Probiotic] Ipratropium-Albuterol Nebulize 3 ml INHALATION RT-QID PRN 04/05/20 04/12/21 [Duoneb 0.5 mg-3 mg/3 ml Soln] Montelukast Sodium [Singulair] 10 mg PO HS 04/05/20 04/12/21 Oxymetazoline 0.05% Nasl [place] 3 spray NASAL BID PRN 04/05/20 04/12/21 [Afrin 0.05% Nasal [place]] Losartan Potassium 50 mg PO QAM 06/11/20 04/12/21 Furosemide [Lasix] 20 mg PO QAM 06/30/20 04/12/21 Potassium Chloride 10 meq PO DAILY 06/30/20 04/12/21 Metoprolol Tartrate [Lopressor] 12.5 mg PO DAILY 03/26/21 04/12/21 Clopidogrel [Plavix] 75 mg PO DAILY 03/31/21 04/12/21 Albuterol Inhaler [Ventolin Hfa 1 - 2 puff INHALATION RT-QID PRN 04/12/21 04/12/21 Inhaler] Cholecalciferol [Vitamin D3 (25 25 mcg PO DAILY 04/12/21 04/12/21 Mcg = 1000 Iu)] Loratadine-Pseudoeph 5-120 mg 1 tab PO Q12HR PRN 04/12/21 04/12/21 [Claritin-D 12 Hour] Previous Rx's Medication Instructions Recorded Atorvastatin [Lipitor] 40 mg PO HS #90 tab 08/01/20 Rivaroxaban [Xarelto] 15 mg PO HS #0 08/01/20 Allergies Allergy/AdvReac Type Severity Reaction Status Date / Time No Known Allergies Allergy Verified 04/12/21 08:20 Review of Systems ROS Statement: Those systems with pertinent positive or pertinent negative responses have been documented in the HPI. ROS Other: All systems not noted in ROS Statement are negative. Past Medical History Past Medical History: Atrial Fibrillation, Asthma, Coronary Artery Disease (CAD), Cancer, COPD, GERD/Reflux, Hearing Disorder / Deafness, Hyperlipidemia, Hypertension, Osteoarthritis (OA), Pneumonia, Respiratory Disorder, Sleep Apnea/CPAP/BIPAP, Thyroid Disorder Additional Past Medical History / Comment(s): Lung Cancer, cond stable, currently tx on hold, last chemo was in November/2019, diverticular disease, hx SBO w/ resection/colostomy/reversal, prostate cancer w/ radiation tx, skin cancer removed from face, hypothyroid. Hearing aids. Aortic stenosis History of Any Multi-Drug Resistant Organisms: None Reported Past Surgical History: Bowel Resection, Heart Catheterization, Heart Catheterization With Stent, Orthopedic Surgery, Tonsillectomy Additional Past Surgical History / Comment(s): 01/07/19 bronchoscopy w/ BAL, past bronchoscopies/bx, PCI with stent 2006, bilat reconstructive ear surgery/gland removed under jaw, bowel resection d/t rupture with colostomy later reversed, L cataract removal, demetra fundoloplasty, bilat total shoulders/knees, L knee arthroscopy x 2, EGD, colonoscopy, prostate bx, bilat exciscion gynecomastia, skin cancer removals. Heart cath, ALEA 07/06/20 Past Anesthesia/Blood Transfusion Reactions: No Reported Reaction, Motion Sickness Date of Last Stent Placement:: 2006 Past Psychological History: No Psychological Hx Reported Smoking Status: Former smoker Past Alcohol Use History: None Reported Past Drug Use History: None Reported - Past Family History Mother Family Medical History: Cancer Additional Family Medical History / Comment(s): MULTIPLE MEYLOMA Father Family Medical History: Cancer Additional Family Medical History / Comment(s): LUNG CANCER Sister(s) Family Medical History: Cancer Additional Family Medical History / Comment(s): sister had rectal cancer. Son(s) Family Medical History: Cancer Additional Family Medical History / Comment(s): Son has hodgkins lymphoma General Exam Limitations: physical limitation General appearance: alert, in no apparent distress Head exam: Present: atraumatic, normocephalic, normal inspection Eye exam: Present: normal appearance, PERRL, EOMI. Absent: scleral icterus, conjunctival injection, periorbital swelling ENT exam: Present: normal exam, normal oropharynx, mucous membranes moist Neck exam: Present: normal inspection, full ROM. Absent: tenderness, meningismus, lymphadenopathy Respiratory exam: Present: rhonchi. Absent: normal lung sounds bilaterally, respiratory distress, wheezes, rales, stridor Cardiovascular Exam: Present: regular rate, normal rhythm, normal heart sounds, systolic murmur. Absent: diastolic murmur, rubs, gallop, clicks GI/Abdominal exam: Present: soft, normal bowel sounds. Absent: distended, tenderness, guarding, rebound, rigid Course Vital Signs 04/12/21 04/12/21 04/12/21 07:15 08:00 08:32 Temperature 97.5 F L Pulse Rate 82 79 Respiratory 22 18 Rate Blood Pressure 179/104 206/113 O2 Sat by Pulse 91 L 92 L Oximetry EKG Findings - EKG Comments: EKG Findings:: EKG performed at 17:33 normal sinus rhythm rate of 77 [place] 186 QRS 98 QT/QTC 424/479 Medical Decision Making - Lab Data Result diagrams: 04/12/21 07:58 04/12/21 07:58 Lab Results 04/12/21 04/12/21 04/12/21 Range/Units 07:58 07:58 07:58 WBC 6.7 (3.8-10.6) k/uL RBC 4.20 L (4.30-5.90) m/uL Hgb 13.0 (13.0-17.5) gm/dL Hct 38.2 L (39.0-53.0) % MCV 91.0 (80.0-100.0) fL MCH 31.0 (25.0-35.0) pg MCHC 34.0 (31.0-37.0) g/dL RDW 15.1 (11.5-15.5) % Plt Count 217 (150-450) k/uL MPV 7.9 Neutrophils % 66 % Lymphocytes % 18 % Monocytes % 7 % Eosinophils % 4 % Basophils % 1 % Neutrophils # 4.4 (1.3-7.7) k/uL Lymphocytes # 1.2 (1.0-4.8) k/uL Monocytes # 0.5 (0-1.0) k/uL Eosinophils # 0.3 (0-0.7) k/uL Basophils # 0.1 (0-0.2) k/uL PT 10.2 (9.0-12.0) sec INR 0.9 (<1.2) APTT 25.2 (22.0-30.0) sec Sodium 130 L (137-145) mmol/L Potassium 4.5 (3.5-5.1) mmol/L Chloride 99 (98-107) mmol/L Carbon Dioxide 21 L (22-30) mmol/L Anion Gap 10 mmol/L BUN 23 H (9-20) mg/dL Creatinine 1.44 H (0.66-1.25) mg/dL Est GFR (CKD-EPI)AfAm 52 (>60 ml/min/1.73 sqM) Est GFR (CKD-EPI)NonAf 45 (>60 ml/min/1.73 sqM) Glucose 95 (74-99) mg/dL Plasma Lactic Acid Vel (0.7-2.0) mmol/L Calcium 10.1 (8.4-10.2) mg/dL Magnesium 1.4 L (1.6-2.3) mg/dL Total Bilirubin 0.4 (0.2-1.3) mg/dL AST 24 (17-59) U/L ALT 12 (4-49) U/L Alkaline Phosphatase 131 H (38-126) U/L Troponin I (0.000-0.034) ng/mL NT-Pro-B Natriuret Pep pg/mL Total Protein 6.4 (6.3-8.2) g/dL Albumin 3.8 (3.5-5.0) g/dL 04/12/21 04/12/21 04/12/21 Range/Units 07:58 07:58 07:58 WBC (3.8-10.6) k/uL RBC (4.30-5.90) m/uL Hgb (13.0-17.5) gm/dL Hct (39.0-53.0) % MCV (80.0-100.0) fL MCH (25.0-35.0) pg MCHC (31.0-37.0) g/dL RDW (11.5-15.5) % Plt Count (150-450) k/uL MPV Neutrophils % % Lymphocytes % % Monocytes % % Eosinophils % % Basophils % % Neutrophils # (1.3-7.7) k/uL Lymphocytes # (1.0-4.8) k/uL Monocytes # (0-1.0) k/uL Eosinophils # (0-0.7) k/uL Basophils # (0-0.2) k/uL PT (9.0-12.0) sec INR (<1.2) APTT (22.0-30.0) sec Sodium (137-145) mmol/L Potassium (3.5-5.1) mmol/L Chloride (98-107) mmol/L Carbon Dioxide (22-30) mmol/L Anion Gap mmol/L BUN (9-20) mg/dL Creatinine (0.66-1.25) mg/dL Est GFR (CKD-EPI)AfAm (>60 ml/min/1.73 sqM) Est GFR (CKD-EPI)NonAf (>60 ml/min/1.73 sqM) Glucose (74-99) mg/dL Plasma Lactic Acid Vel 1.1 (0.7-2.0) mmol/L Calcium (8.4-10.2) mg/dL Magnesium (1.6-2.3) mg/dL Total Bilirubin (0.2-1.3) mg/dL AST (17-59) U/L ALT (4-49) U/L Alkaline Phosphatase (38-126) U/L Troponin I 0.050 H* (0.000-0.034) ng/mL NT-Pro-B Natriuret Pep 741 pg/mL Total Protein (6.3-8.2) g/dL Albumin (3.5-5.0) g/dL Disposition Clinical Impression: Pneumonia, Elevated troponin, Dyspnea Disposition: ADMITTED IP TO THIS HOSP Condition: Fair Referrals: Roxie Melendez DO [Primary Care Provider] - 1-2 days
[2021-04-12] MEDS ORDERED: AZITHROMYCIN 500 MG in SODIUM CHLORIDE 0.9% 250 ML IVPB STA (09:13)
[2021-04-12] MEDS ORDERED: IPRATROPIUM-ALBUTEROL 3 ML NEB INHALATION PRN (09:25)
[2021-04-12] MEDS ORDERED: HYDROmorphone 0.5 MG/0.5 ML SYRINGE IVP STA (09:43)
[2021-04-12] MEDS ORDERED: OXYMETAZOLINE 0.05% NASL SPRAY 1 SPRAY BOTTLE NASAL PRN (10:55)
--- NOTE | 2021-04-12 11:58 | P.HPIM ---
History of Present Illness H&P Date: 04/12/21 Chief Complaint: Congested chest History present complaint: This is a pleasant 81-year-old patient of Dr. Roxie Melendez. Chronic stable medical conditions include coronary artery disease, CHF with EF of 50-65%, moderate aortic stenosis with sclerosis, COPD, GERD, hyperlipidemia, hypertension, primary osteoarthritis,(s) sleep apnea, hypothyroid. 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 treated with chemotherapy -being followed with Dr. Rutherfodr. Patient received last chemotherapy in October 2019 History of Grabiel fundoplication, has had small bowel obstruction with resection colostomy and reversal of the same. prostate cancer treated with radiation.. On 03/31/2021, patient underwent bronchoscopy with lavage by Dr. Sheppard for recurrent pneumonia of the left lower lobe. Found to have bronchomalacia, some hyperemia and fragile mucosa, and pathology came back negative for malignant cells. Cultures were positive for Shirin albicans and Rhodotorula mucilaginosa Patient now presents that since the procedures been having increasing amount of congestion cough. Wheezing. Decreased appetite no phlegm. Some fever. Has had some dizziness also having intermittent chest tightness with coughing. And some chest pain. No radiation. Decided to come in. Tired rundown. Review of systems: GEN.: A bit tired, decreased appetite EYES: None HEENT: None NECK: None RESPIRATORY: As above CARDIOVASCULAR: As above GASTROINTESTINAL: None GENITOURINARY: None MUSCULOSKELETAL: Some joint pains LYMPHATICS: None HEMATOLOGICAL: None PSYCHIATRY: None NEUROLOGICAL: None Past medical history: Include Coronary artery disease with stent , stage IV adenocarcinoma of the lung on chemotherapy-last time in October 2019, history of Grabiel fundoplication, COPD in an ex-smoker, hypothyroidism, essential hypertension, hyperlipidemia, obstructive sleep apnea, CHF with diastolic dysfunction, moderate aortic stenosis with sclerosis. January 2020 - GI bleed. EGD was unremarkable. Bronchomalacia Social history: . Smoked from age of 14 through 1982 . alcohol occasionally. Retired. Family history: sister had rectal cancer Physical examination: VITAL SIGNS: 97.5, 82, 22, 179/104, 92% on 2 L upon presentation GENERAL: BMI 29.2, reclining in bed, tired, EYES: Pupils equal. Conjunctiva normal. HEENT: External appearance of nose and ears normal, oral cavity normal. NECK: JVD not raised; masses not palpable. HEART: First and second heart sounds are normal; no edema. LUNGS: Respiratory rate increased, decreased breath sounds. ABDOMEN: Soft, distended, , liver spleen not palpable, no masses palpable. PSYCH: Alert and oriented x3; mood and affect anxious NEUROLOGICAL: Cranial nerves grossly intact; no facial asymmetry, power and sensation grossly intact. LYMPHATICS: No lymph nodes palpable in the axilla and neck INVESTIGATIONS, reviewed in the clinical context: WBC 6.7 hemoglobin 13 platelets 217 sodium 1:30 potassium 4.5 BUN 23 creatinine 1.44 Troponin I 0.050, 0.058 ProBNP 741 EKG tracing personally reviewed by me-normal sinus rhythm Chest x-ray film personally reviewed by me-haziness on the left base. Vascular interstitial prominence. Assessment and plan: -Positive troponin with chest pains. Somewhat atypical presentation. Given the history of coronary artery disease to be followed. Consult cardiology -Likely pneumonia. Recent BAL results showed Shirin albicans and Rhodotorula mucilaginosa Antibiotics per pulmonary. Add Diflucan. -Chronic tracheal bronchomalacia -Colonic diverticulosis, asymptomatic - Grabiel fundoplication, -Coronary artery disease with a prior history of stent Aspirin, Lopressor, Lipitor -Stage IV adenocarcinoma of the lung on chemotherapy Follows with oncology to, Dr. Rutherford -Acute COPD exacerbation in an ex-smoker- Inhaled steroids. Nebulized bronchodilators. -Hypothyroidism Synthroid 50 g daily -Essential hypertension Cozaar 50 mg daily, Lopressor 12.5 daily, -Hyperlipidemia Lipitor 40 mg daily at bedtime -Obstructive sleep apnea -Chronic congestive heart failure from diastolic dysfunction EF 50-60%. No acute exacerbation. Follow clinically -Moderate aortic stenosis with sclerosis nonrheumatic Follow clinically -Primary osteoarthritis multiple joints Use. Medications as needed -Chronic kidney disease. 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 Follow clinically -Paroxysmal atrial fibrillation, currently in sinus rhythm On Lopressor. Xarelto Care was discussed with the patient. Questions answered. Consult cardiology pulmonary. Nebulized bronchitis, inhaled steroids, inhaled long-acting beta agonist. Add Diflucan. Antibiotics per pulmonary. Given the complexity and severity of patient's condition expect the patient to be in the hospital at least for 2 overnights Past Medical History Past Medical History: Atrial Fibrillation, Asthma, Coronary Artery Disease (CAD), Cancer, COPD, GERD/Reflux, Hearing Disorder / Deafness, Hyperlipidemia, Hypertension, Osteoarthritis (OA), Pneumonia, Respiratory Disorder, Sleep Apnea/CPAP/BIPAP, Thyroid Disorder Additional Past Medical History / Comment(s): Lung Cancer, cond stable, currently tx on hold, last chemo was in November/2019, diverticular disease, hx SBO w/ resection/colostomy/reversal, prostate cancer w/ radiation tx, skin cancer removed from face, hypothyroid. Hearing aids. Aortic stenosis History of Any Multi-Drug Resistant Organisms: None Reported Past Surgical History: Bowel Resection, Heart Catheterization, Heart Catheteriza tion With Stent, Orthopedic Surgery, Tonsillectomy Additional Past Surgical History / Comment(s): 01/07/19 bronchoscopy w/ BAL, past bronchoscopies/bx, PCI with stent 2006, bilat reconstructive ear surgery/gland removed under jaw, bowel resection d/t rupture with colostomy later reversed, L cataract removal, grabiel fundoloplasty, bilat total shoulders/knees, L knee arthroscopy x 2, EGD, colonoscopy, prostate bx, bilat exciscion gynecomastia, skin cancer removals. Heart cath, [facility] 07/06/20 Past Anesthesia/Blood Transfusion Reactions: No Reported Reaction, Motion Sickness Date of Last Stent Placement:: 2006 Past Psychological History: No Psychological Hx Reported Smoking Status: Former smoker Past Alcohol Use History: None Reported Past Drug Use History: None Reported - Past Family History Mother Family Medical History: Cancer Additional Family Medical History / Comment(s): MULTIPLE MEYLOMA Father Family Medical History: Cancer Additional Family Medical History / Comment(s): LUNG CANCER Sister(s) Family Medical History: Cancer Additional Family Medical History / Comment(s): sister had rectal cancer. Son(s) Family Medical History: Cancer Additional Family Medical History / Comment(s): Son has hodgkins lymphoma Medications and Allergies Home Medications Medication Instructions Recorded Confirmed Type FLUoxetine HCL [PROzac] 20 mg PO QAM 08/05/14 04/12/21 History Levothyroxine Sodium [Synthroid] 50 mcg PO QAM 08/05/14 04/12/21 History Omeprazole [PriLOSEC] 40 mg PO HS 08/05/14 04/12/21 History Folic Acid 1 mg PO HS 02/12/18 04/12/21 History Fluticasone/Umeclidin/Vilanter 1 puff INHALATION RT-DAILY 11/18/19 04/12/21 History [Trelegy Ellipta 100-62.5-25] L.acidoph,Paracasei, B.lactis 1 cap PO HS 03/01/20 04/12/21 History [Probiotic] Ipratropium-Albuterol Nebulize 3 ml INHALATION RT-QID PRN 04/05/20 04/12/21 History [Duoneb 0.5 mg-3 mg/3 ml Soln] Montelukast Sodium [Singulair] 10 mg PO HS 04/05/20 04/12/21 History Oxymetazoline 0.05% Nasl [place] 3 spray NASAL BID PRN 04/05/20 04/12/21 History [Afrin 0.05% Nasal [place]] Losartan Potassium 50 mg PO QAM 06/11/20 04/12/21 History Furosemide [Lasix] 20 mg PO QAM 06/30/20 04/12/21 History Potassium Chloride 10 meq PO DAILY 06/30/20 04/12/21 History Atorvastatin [Lipitor] 40 mg PO HS #90 tab 08/01/20 04/12/21 Rx Rivaroxaban [Xarelto] 15 mg PO HS #0 08/01/20 04/12/21 Rx Metoprolol Tartrate [Lopressor] 12.5 mg PO DAILY 03/26/21 04/12/21 History Clopidogrel [Plavix] 75 mg PO DAILY 03/31/21 04/12/21 History Albuterol Inhaler [Ventolin Hfa 1 - 2 puff INHALATION RT-QID PRN 04/12/21 04/12/21 History Inhaler] Cholecalciferol [Vitamin D3 (25 25 mcg PO DAILY 04/12/21 04/12/21 History Mcg = 1000 Iu)] Loratadine-Pseudoeph 5-120 mg 1 tab PO Q12HR PRN 04/12/21 04/12/21 History [Claritin-D 12 Hour] Allergies Allergy/AdvReac Type Severity Reaction Status Date / Time No Known Allergies Allergy Verified 04/12/21 08:20 Physical Exam Vitals: Vital Signs Temp Pulse Resp BP Pulse Ox 04/12/21 11:00 80 18 151/84 92 L 04/12/21 10:30 80 19 140/75 92 L 04/12/21 09:37 89 18 171/86 94 L 04/12/21 09:00 90 20 172/88 96 04/12/21 08:32 79 18 206/113 92 L 04/12/21 08:00 91 L 04/12/21 07:15 97.5 F L 82 22 179/104 Intake and Output 04/11/21 04/12/21 04/12/21 22:59 06:59 14:59 Other: Weight 97.522 kg Results CBC & Chem 7: 04/12/21 07:58 04/12/21 07:58 Labs: Abnormal Lab Results - Last 24 Hours (Table) 04/12/21 04/12/21 04/12/21 Range/Units 07:58 07:58 07:58 RBC 4.20 L (4.30-5.90) m/uL Hct 38.2 L (39.0-53.0) % Sodium 130 L (137-145) mmol/L Carbon Dioxide 21 L (22-30) mmol/L BUN 23 H (9-20) mg/dL Creatinine 1.44 H (0.66-1.25) mg/dL Magnesium 1.4 L (1.6-2.3) mg/dL Alkaline Phosphatase 131 H (38-126) U/L Troponin I 0.050 H* (0.000-0.034) ng/mL 04/12/21 Range/Units 10:30 RBC (4.30-5.90) m/uL Hct (39.0-53.0) % Sodium (137-145) mmol/L Carbon Dioxide (22-30) mmol/L BUN (9-20) mg/dL Creatinine (0.66-1.25) mg/dL Magnesium (1.6-2.3) mg/dL Alkaline Phosphatase (38-126) U/L Troponin I 0.058 H* (0.000-0.034) ng/mL
[2021-04-12] MEDS ORDERED: IPRATROPIUM 0.5 MG/2.5 ML NEBU INHALATION SCH (12:00)
[2021-04-12] MEDS ORDERED: IPRATROPIUM-ALBUTEROL 3 ML NEB INHALATION SCH (12:00)
[2021-04-12] MEDS ORDERED: FLUCONAZOLE 100 MG TAB PO ONE (12:00)
[2021-04-12] MEDS ORDERED: ALBUTEROL HFA INHALER INHALATION PRN (12:55)
[2021-04-12] MEDS ORDERED: Magnesium Replacement Protocol 1 EACH MISC MISCELLANE PRN (13:17)
--- NOTE | 2021-04-12 13:21 | P.CRDCN ---
History of Present Illness History of present illness: HISTORY OF PRESENTING ILLNESS This is a pleasant 81-year-old male past medical history significant for coronary artery disease status post PCI of the RCA and diagonal branch, valvular heart disease status post TAVR, paroxysmal atrial fibrillation, hypertension, lung cancer currently in remission and dyslipidemia. He follows in the office with Dr. Kong. We have been asked to see in consultation for chest pain. He presented to the hospital with symptoms of cough, shortness of breath and upper respiratory congestion. He is status post bronchoscopy [address] Kenney. He states the symptoms seem to have gotten progressively worse since that time. He has been diagnosed on this admission with pneumonia and is currently receiving antibiotics. He is seen and examined sitting up in the emergency department in no acute distress. He has no symptoms of chest disco mfort, dizziness or palpitations. He feels stable at rest but states if he gets up and doesn't activity he would feel short of breath. He continues to cough. He is not bringing up any significant sputum at this time. DIAGNOSTICS EKG reveals sinus mechanism. Chest xray chronic appearing density of the left lower lobe increasing left perihilar density. Laboratory reviewed, WBC 6.7, hemoglobin 13, platelets 217, sodium 1:30, potassium 4.5, creatinine 1.44, magnesium 1.4, troponin 0.050, 0.058 and NT proBNP 741. Current cardiac medications include Lasix 20 mg daily, Plavix 75 mg daily, Xarelto 15 mg daily, atorvastatin 40 mg daily, losartan 50 mg daily and Lopressor 12.5 mg daily. Most recent echocardiogram prior to valvular surgery revealed preserved LV systolic function with ejection fraction 65%, moderate concentric LVH, mildly dilated left atrium, mild aortic regurgitation, moderate to severe with mean gradient of 36 mmHg, severely calcified aortic valve, mild to moderate mitral regurgitation, mild to moderate mitral stenosis with mitral valve area of 1.36 cm and a mean gradient of 2 mmHg, mild to moderate tricuspid regurgitation with an RVSP of 31 mmHg. REVIEW OF SYSTEMS At the time of my exam: CONSTITUTIONAL: Denies fever or chills. CARDIOVASCULAR: In place of shortness of breath. Denies chest pain, orthopnea, PND or palpitations. RESPIRATORY: Complains of cough. GASTROINTESTINAL: Denies abdominal pain, diarrhea, constipation, nausea or vomiting. MUSCULOSKELETAL: Denies myalgias. NEUROLOGIC: Denies numbness, tingling, headache or weakness. ENDOCRINE: Denies fatigue, weight change, polydipsia or polyurina. GENITOURINARY: Denies burning, hematuria or urgency with micturation. HEMATOLOGIC: Denies history of anemia or bleeding. PHYSICAL EXAMINATION Blood pressure 151/84 heart rate 80 afebrile and maintaining oxygen saturation on nasal cannula. CONSTITUTIONAL: No apparent distress. HEENT: Head is normocephalic. Pupils are equal, round. Sclerae anicteric. Mucous membranes of the mouth are moist. No JVD. No carotid bruit. CHEST EXAMINATION: Lungs are clear to auscultation. No chest wall tenderness is noted on palpation or with deep breathing. HEART EXAMINATION: Regular rate and rhythm. S1, S2 heard. Systolic ejection murmur at the base, no gallops or rub. ABDOMEN: Soft, nontender. EXTREMITIES: 2+ peripheral pulses, no lower extremity edema and no calf tenderness. NEUROLOGIC EXAMINATION: Patient is awake, alert and oriented x3. ASSESSMENT Pneumonia Coronary artery disease s/p PCI Aortic stenosis s/p TAVR 08/2020 Hypomagnesemia Hypertension Dyslipidemia Paroxysmal atrial fibrillation on Xarelto, currently maintaining sinus rhythm History of lung cancer PLAN Continue current medical regimen. Repeat echocardiogram to assess aortic valve status post TAVR. Replace magnesium per protocol. Clinically euvolemic, no evidence to suggest heart failure. Thank you kindly for this consultation. Nurse Practitioner note has been reviewed, I agree with a documented findings and plan of care. Patient was seen and examined. Past Medical History Past Medical History: Atrial Fibrillation, Asthma, Coronary Artery Disease (CAD), Cancer, COPD, GERD/Reflux, Hearing Disorder / Deafness, Hyperlipidemia, Hypertension, Osteoarthritis (OA), Pneumonia, Respiratory Disorder, Sleep Apnea/CPAP/BIPAP, Thyroid Disorder Additional Past Medical History / Comment(s): Lung Cancer, cond stable, currently tx on hold, last chemo was in November/2019, diverticular disease, hx SBO w/ resection/colostomy/reversal, prostate cancer w/ radiation tx, skin cancer removed from face, hypothyroid. Hearing aids. Aortic stenosis History of Any Multi-Drug Resistant Organisms: None Reported Past Surgical History: Bowel Resection, Heart Catheterization, Heart Catheterization With Stent, Orthopedic Surgery, Tonsillectomy Additional Past Surgical History / Comment(s): 01/07/19 bronchoscopy w/ BAL, past bronchoscopies/bx, PCI with stent 2006, bilat reconstructive ear surgery/gland removed under jaw, bowel resection d/t rupture with colostomy later reversed, L cataract removal, demetra fundoloplasty, bilat total shoulders/knees, L knee arthroscopy x 2, EGD, colonoscopy, prostate bx, bilat exciscion gynecomastia, skin cancer removals. Heart cath, ALEA 07/06/20 Past Anesthesia/Blood Transfusion Reactions: No Reported Reaction, Motion Sickness Date of Last Stent Placement:: 2006 Past Psychological History: No Psychological Hx Reported Smoking Status: Former smoker Past Alcohol Use History: None Reported Past Drug Use History: None Reported - Past Family History Mother Family Medical History: Cancer Additional Family Medical History / Comment(s): MULTIPLE MEYLOMA Father Family Medical History: Cancer Additional Family Medical History / Comment(s): LUNG CANCER Sister(s) Family Medical History: Cancer Additional Family Medical History / Comment(s): sister had rectal cancer. Son(s) Family Medical History: Cancer Additional Family Medical History / Comment(s): Son has hodgkins lymphoma Medications and Allergies Home Medications Medication Instructions Recorded Confirmed Type FLUoxetine HCL [PROzac] 20 mg PO QAM 08/05/14 04/12/21 History Levothyroxine Sodium [Synthroid] 50 mcg PO QAM 08/05/14 04/12/21 History Omeprazole [PriLOSEC] 40 mg PO HS 08/05/14 04/12/21 History Folic Acid 1 mg PO HS 02/12/18 04/12/21 History Fluticasone/Umeclidin/Vilanter 1 puff INHALATION RT-DAILY 11/18/19 04/12/21 History [Trelegy Ellipta 100-62.5-25] L.acidoph,Paracasei, B.lactis 1 cap PO HS 03/01/20 04/12/21 History [Probiotic] Ipratropium-Albuterol Nebulize 3 ml INHALATION RT-QID PRN 04/05/20 04/12/21 History [Duoneb 0.5 mg-3 mg/3 ml Soln] Montelukast Sodium [Singulair] 10 mg PO HS 04/05/20 04/12/21 History Oxymetazoline 0.05% Nasl [place] 3 spray NASAL BID PRN 04/05/20 04/12/21 History [Afrin 0.05% Nasal [place]] Losartan Potassium 50 mg PO QAM 06/11/20 04/12/21 History Furosemide [Lasix] 20 mg PO QAM 06/30/20 04/12/21 History Potassium Chloride 10 meq PO DAILY 06/30/20 04/12/21 History Atorvastatin [Lipitor] 40 mg PO HS #90 tab 08/01/20 04/12/21 Rx Rivaroxaban [Xarelto] 15 mg PO HS #0 08/01/20 04/12/21 Rx Metoprolol Tartrate [Lopressor] 12.5 mg PO DAILY 03/26/21 04/12/21 History Clopidogrel [Plavix] 75 mg PO DAILY 03/31/21 04/12/21 History Albuterol Inhaler [Ventolin Hfa 1 - 2 puff INHALATION RT-QID PRN 04/12/21 History Inhaler] Cholecalciferol [Vitamin D3 (25 25 mcg PO DAILY 04/12/21 04/12/21 History Mcg = 1000 Iu)] Loratadine-Pseudoeph 5-120 mg 1 tab PO Q12HR PRN 04/12/21 04/12/21 History [Claritin-D 12 Hour] Allergies Allergy/AdvReac Type Severity Reaction Status Date / Time No Known Allergies Allergy Verified 04/12/21 08:20 Physical Exam Vitals: Vital Signs Temp Pulse Resp BP Pulse Ox 04/12/21 11:00 80 18 151/84 92 L 04/12/21 10:30 80 19 140/75 92 L 04/12/21 09:37 89 18 171/86 94 L 04/12/21 09:00 90 20 172/88 96 04/12/21 08:32 79 18 206/113 92 L 04/12/21 08:00 91 L 04/12/21 07:15 97.5 F L 82 22 179/104 Intake and Output 04/11/21 04/12/21 04/12/21 22:59 06:59 14:59 Other: Weight 97.522 kg Results 04/12/21 07:58 04/12/21 07:58 Cardiac Enzymes 04/12/21 04/12/21 04/12/21 Range/Units 07:58 07:58 10:30 AST 24 (17-59) U/L Troponin I 0.050 H* 0.058 H* (0.000-0.034) ng/mL Coagulation 04/12/21 Range/Units 07:58 PT 10.2 (9.0-12.0) sec APTT 25.2 (22.0-30.0) sec CBC 04/12/21 Range/Units 07:58 WBC 6.7 (3.8-10.6) k/uL RBC 4.20 L (4.30-5.90) m/uL Hgb 13.0 (13.0-17.5) gm/dL Hct 38.2 L (39.0-53.0) % Plt Count 217 (150-450) k/uL Comprehensive Metabolic Panel 04/12/21 Range/Units 07:58 Sodium 130 L (137-145) mmol/L Potassium 4.5 (3.5-5.1) mmol/L Chloride 99 (98-107) mmol/L Carbon Dioxide 21 L (22-30) mmol/L BUN 23 H (9-20) mg/dL Creatinine 1.44 H (0.66-1.25) mg/dL Glucose 95 (74-99) mg/dL Calcium 10.1 (8.4-10.2) mg/dL AST 24 (17-59) U/L ALT 12 (4-49) U/L Alkaline Phosphatase 131 H (38-126) U/L Total Protein 6.4 (6.3-8.2) g/dL Albumin 3.8 (3.5-5.0) g/dL Current Medications Generic Name Dose Route Start Last Admin Trade Name Freq PRN Reason Stop Dose Admin Acetaminophen 650 mg 04/12/21 09:42 Acetaminophen Tab 325 Mg Tab PO Q6HR PRN Mild Discomfort Albuterol Sulfate 2 puff 04/12/21 12:55 Albuterol Hfa Inhaler INHALATION RT-QID PRN Shortness Of Breath Or Wheezing Albuterol Sulfate 2 puff 04/12/21 16:00 Albuterol Hfa Inhaler INHALATION RT-QID [facility] Aspirin 325 mg 04/13/21 09:00 Aspirin 325 Mg Tab PO DAILY [facility] Atorvastatin Calcium 40 mg 04/12/21 21:00 Atorvastatin 40 Mg Tab PO HS [facility] Budesonide/Formoterol Fumarate 2 puff 04/12/21 20:00 Symbicort 160-4.5 Mcg Inhaler INHALATION RT-BID [facility] Clopidogrel Bisulfate 75 mg 04/13/21 09:00 Clopidogrel 75 Mg Tab PO DAILY [facility] Fluconazole 150 mg 04/13/21 09:00 Fluconazole 150 Mg Tab PO DAILY [facility] Fluoxetine HCl 20 mg 04/13/21 09:00 Fluoxetine Hcl 20 Mg Cap PO QAM [facility] Folic Acid 1 mg 04/12/21 21:00 Folic Acid 1 Mg Tab PO HS [facility] Furosemide 20 mg 04/13/21 09:00 Furosemide 20 Mg Tab PO QAM [facility] Levothyroxine Sodium 50 mcg 04/13/21 06:30 Levothyroxine 50 Mcg Tab PO QAM@0630 [facility] Losartan Potassium 50 mg 04/13/21 09:00 Losartan 50 Mg Tab PO QAM [facility] Metoprolol Tartrate 12.5 mg 04/13/21 09:00 Metoprolol Tartrate 12.5 Mg Tab PO DAILY [facility] Montelukast Sodium 10 mg 04/12/21 21:00 Montelukast 10 Mg Tab PO HS [facility] Nitroglycerin 0.4 mg 04/12/21 09:09 Nitroglycerin Sl Tabs 0.4 Mg Tab SUBLINGUAL Q5M PRN Chest Pain Oxymetazoline HCl 3 spray 04/12/21 10:55 Oxymetazoline 0.05% Nasl [place] 1 [place] Bottle NASAL BID PRN Sinus Symptoms Pantoprazole Sodium 40 mg 04/13/21 07:30 Pantoprazole 40 Mg Tablet PO AC-BRKFST [facility] Potassium Chloride 10 meq 04/13/21 09:00 Potassium Chloride Er 10 Meq Tab.Er.Prt PO DAILY [facility] Rivaroxaban 15 mg 04/12/21 21:00 Rivaroxaban 15 Mg Tab PO HS [facility] Protocol Intake and Output 04/11/21 04/12/21 04/12/21 22:59 06:59 14:59 Other: Weight 97.522 kg Patient Weight 04/13/21 06:59 Weight 97.522 kg 04/12/21 07:58 04/12/21 07:58
[2021-04-12] MEDS: FLUCONAZOLE 150 MG TAB PO SCH (13:37)
[2021-04-12] MEDS: MAGNESIUM SULFATE-D5W PMX 1 GM in DEXTROSE/WATER 1 100ML.BAG IVPB SCH ×3 (15:34→18:28)
--- NOTE | 2021-04-12 15:38 | P.CNPUL ---
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 Most recently in 2018 patient was treated with Opdivo. Most recent CT of the chest, abdomen and pelvis without contrast from January 14 showed stable right upper lobe subpleural nodule, right basilar subpleural nodule which was unchanged, and right lower lobe pulmonary nodule which was unchanged. The right upper lobe subpleural nodule slightly increased from 2.6-2.7 compared to May [address] chest. Patient has upcoming follow-up CT of the chest abdomen and pelvis in April 2021. He is currently not on any active treatment for his lung c ancer. Other medical history includes coronary artery disease, with previous history of stenting, most recently from July 2020 with 3 stents placed to the mid RCA and the diagonal branch, history of paroxysmal atrial fibrillation on Xarelto, valvular heart disease status post TAVR, hypertension, dyslipidemia, hearing disorder with hearing aid. The patient is a bronchoscopy and bronchial lavage with approximately 2 weeks ago of the cultures indicated Shirin and Rhodotorula . The patient is coming in today because of worsening shortness of breath. Yesterday he woke up from sleep having some difficulties in breathing. No reported chest pain. He has a chronic cough. Denies having any worsening of his cough and. No hemoptysis. No pleurisy. His limited normal. Coagulation with Xarelto. No recent history of DVT or embolism. Most recent CAT scan of the chest that was done in December 2020 showed no evidence of any pneumonia. We will some chronic scarring in the left lung base. No evidence of tumor progression. No evidence of any pleural effusion. Her diet, the patient about coming into the hospital. The chest x-ray showed chronic abnormalities. Troponin was elevated and there was some limited troponin leak without any acute acute changes. The patient was admitted to the medical floor. Consultation was requested regarding the possibility of a pneumonia. Note that the patient has COPD his FEV1 is order of 60% of predicted. He has been maintained on Trelegy Ellipta one inhalation a day in addition to albuterol HFA and nebulizer on a when necessary basis. The white cell count is at 6.7. Sodium is 1:30. Creatinine is up to 1.4. Review of Systems Constitutional: Reports fatigue Eyes: denies as per HPI, denies blurred vision, denies bulging eye, denies decreased vision, denies diplopia, denies discharge, denies dry eye, denies irritation, denies itching, denies pain, denies photophobia, denies loss of peripheral vision, denies loss of vision, denies tunnel vision/blind spots Ears: deny: decreased hearing, ear discharge, earache, tinnitus Ears, nose, mouth and throat: Reports as per HPI Breasts: absent: as per HPI, gynecomastia Cardiovascular: Reports decreased exercise tolerance, Reports dyspnea on exertion Respiratory: Reports cough, Reports dyspnea, Reports wheezing Gastrointestinal: Reports as per HPI Genitourinary: Reports as per HPI Musculoskeletal: Reports as per HPI Musculoskeletal: absent: ankle pain, ankle stiffness, ankle swelling Integumentary: Reports as per HPI Neurological: Reports as per HPI Endocrine: Reports as per HPI Hematologic/Lymphatic: Reports as per HPI Allergic/Immunologic: Reports as per HPI Past Medical History Past Medical History: Atrial Fibrillation, Asthma, Coronary Artery Disease (CAD), Cancer, COPD, GERD/Reflux, Hearing Disorder / Deafness, Hyperlipidemia, Hypertension, Osteoarthritis (OA), Pneumonia, Respiratory Disorder, Sleep Apnea/CPAP/BIPAP, Thyroid Disorder Additional Past Medical History / Comment(s): Lung Cancer, cond stable, currently tx on hold, last chemo was in November/2019, diverticular disease, hx SBO w/ resection/colostomy/reversal, prostate cancer w/ radiation tx, skin cancer removed from face, hypothyroid. Hearing aids. Aortic stenosis History of Any Multi-Drug Resistant Organisms: None Reported Past Surgical History: Bowel Resection, Heart Catheterization, Heart Catheterization With Stent, Orthopedic Surgery, Tonsillectomy Additional Past Surgical History / Comment(s): 01/07/19 bronchoscopy w/ BAL, past bronchoscopies/bx, PCI with stent 2006, bilat reconstructive ear surgery/gland removed under jaw, bowel resection d/t rupture with colostomy later reversed, L cataract removal, demetra fundoloplasty, bilat total shoulders/knees, L knee arthroscopy x 2, EGD, colonoscopy, prostate bx, bilat exciscion gynecomastia, skin cancer removals. Heart cath, ALEA 07/06/20 Past Anesthesia/Blood Transfusion Reactions: No Reported Reaction, Motion Sickness Date of Last Stent Placement:: 2006 Past Psychological History: No Psychological Hx Reported Smoking Status: Former smoker Past Alcohol Use History: None Reported Past Drug Use History: None Reported - Past Family History Mother Family Medical History: Cancer Additional Family Medical History / Comment(s): MULTIPLE MEYLOMA Father Family Medical History: Cancer Additional Family Medical History / Comment(s): LUNG CANCER Sister(s) Family Medical History: Cancer Additional Family Medical History / Comment(s): sister had rectal cancer. Son(s) Family Medical History: Cancer Additional Family Medical History / Comment(s): Son has hodgkins lymphoma Medications and Allergies Home Medications Medication Instructions Recorded Confirmed Type FLUoxetine HCL [PROzac] 20 mg PO QAM 08/05/14 04/12/21 History Levothyroxine Sodium [Synthroid] 50 mcg PO QAM 08/05/14 04/12/21 History Omeprazole [PriLOSEC] 40 mg PO HS 08/05/14 04/12/21 History Folic Acid 1 mg PO HS 02/12/18 04/12/21 History Fluticasone/Umeclidin/Vilanter 1 puff INHALATION RT-DAILY 11/18/19 04/12/21 History [Trelegy Ellipta 100-62.5-25] L.acidoph,Paracasei, B.lactis 1 cap PO HS 03/01/20 04/12/21 History [Probiotic] Ipratropium-Albuterol Nebulize 3 ml INHALATION RT-QID PRN 04/05/20 04/12/21 History [Duoneb 0.5 mg-3 mg/3 ml Soln] Montelukast Sodium [Singulair] 10 mg PO HS 04/05/20 04/12/21 History Oxymetazoline 0.05% Nasl [place] 3 spray NASAL BID PRN 04/05/20 04/12/21 History [Afrin 0.05% Nasal [place]] Losartan Potassium 50 mg PO QAM 06/11/20 04/12/21 History Furosemide [Lasix] 20 mg PO QAM 06/30/20 04/12/21 History Potassium Chloride 10 meq PO DAILY 06/30/20 04/12/21 History Atorvastatin [Lipitor] 40 mg PO HS #90 tab 12/05/20 08/16/21 Rx Rivaroxaban [Xarelto] 15 mg PO HS #0 08/01/20 04/12/21 Rx Metoprolol Tartrate [Lopressor] 12.5 mg PO DAILY 03/26/21 04/12/21 History Clopidogrel [Plavix] 75 mg PO DAILY 03/31/21 04/12/21 History Albuterol Inhaler [Ventolin Hfa 1 - 2 puff INHALATION RT-QID PRN 04/12/21 04/12/21 History Inhaler] Cholecalciferol [Vitamin D3 (25 25 mcg PO DAILY 04/12/21 04/12/21 History Mcg = 1000 Iu)] Loratadine-Pseudoeph 5-120 mg 1 tab PO Q12HR PRN 04/12/21 04/12/21 History [Claritin-D 12 Hour] Allergies Allergy/AdvReac Type Severity Reaction Status Date / Time No Known Allergies Allergy Verified 04/12/21 08:20 Physical Exam Vitals: Vital Signs Temp Pulse Resp BP Pulse Ox 04/12/21 13:38 73 18 149/83 93 L 04/12/21 11:00 80 18 151/84 92 L 04/12/21 10:30 80 19 140/75 92 L 04/12/21 09:37 89 18 171/86 94 L 04/12/21 09:00 90 20 172/88 96 04/12/21 08:32 79 18 206/113 92 L 04/12/21 08:00 91 L 04/12/21 07:15 97.5 F L 82 22 179/104 Intake and Output 04/11/21 04/12/21 04/12/21 22:59 06:59 14:59 Other: Weight 97.522 kg ONSTITUTIONAL: No apparent distress. HEENT: Head is normocephalic. Pupils are equal, round. Sclerae anicteric. Mucous membranes of the mouth are moist. No JVD. No carotid bruit. CHEST EXAMINATION: Lungs are clear to auscultation. No chest wall tenderness is noted on palpation or with deep breathing. HEART EXAMINATION: Regular rate and rhythm. S1, S2 heard. Systolic ejection murmur at the base, no gallops or rub. ABDOMEN: Soft, nontender. EXTREMITIES: 2+ peripheral pulses, no lower extremity edema and no calf tenderness. NEUROLOGIC EXAMINATION: Patient is awake, alert and oriented x3. Results - Laboratory Findings CBC and BMP: 04/12/21 07:58 04/12/21 07:58 PT/INR, D-dimer PT 10.2 sec (9.0-12.0) 04/12/21 07:58 INR 0.9 (<1.2) 04/12/21 07:58 Abnormal lab findings: Abnormal Labs 04/12/21 04/12/21 04/12/21 07:58 07:58 07:58 RBC 4.20 L Hct 38.2 L Sodium 130 L Carbon Dioxide 21 L BUN 23 H Creatinine 1.44 H Magnesium 1.4 L Alkaline Phosphatase 131 H Troponin I 0.050 H* 04/12/21 04/12/21 10:30 13:32 RBC Hct Sodium Carbon Dioxide BUN Creatinine Magnesium Alkaline Phosphatase Troponin I 0.058 H* 0.050 H* - Diagnostic Findings Chest x-ray: image reviewed Assessment and Plan Plan: 1 shortness of breath under investigation. The patient is known to have COPD. There is no clear indication of an acute COPD exacerbation. No indication of pneumonia. The most is a bronchoscopy showed Shirin. Nevertheless, based on the follow-up chest x-ray the most recent CAT scan of the chest from December 2020, there is no indication for any pneumonia or recurrent malignancy. No indication of pulmonary embolism and the patient is on long-term anticoagulation with Xarelto. 2 coronary artery disease with previous coronary stenting 3 3 troponin leak without any acute chest pain, consider angina equivalent with secondary shortness of breath 4 history of atrial fibrillation current rhythm is sinus 5 aortic valve stenosis, post TAVR procedure 6 hyperlipidemia 7 chronic kidney disease with a creatinine of 1.4 8 history of lung cancer, with a malignant pleural effusion treated with systemic chemotherapy. His disease remains in remission and the most recent CAT scan of the chest showed no evidence of any tumor or pleural effusion 9 history of colostomy/ball resection for small bowel obstruction with subsequent reversal 10 history of prostate cancer treated with radiation therapy 11 history of skin cancer resected. 12 hypothyroidism 13 Hypertension Plan Agree with Diflucan coverage for possibility of fungal pulmonary infection Hemodynamically stable, no significant hypoxia, no evidence of leukocytosis no fever or chills Continue bronchodilators, no need for IV or oral steroids Continue oral anticoagulation Cardiology recommendations for the mildly elevated troponins We'll continue to follow his clinical course I performed a history & physical examination of the patient and discussed their management with my nurse practitioner, Ladan Awad. I reviewed the nurse practitioner's note and agree with the documented findings and plan of care. Lung sounds are positive for clear with a few rhonchi throughout the lung li. The findings and the impression was discussed with the patient. I attest to the documentation by the nurse practitioner. Time with Patient: Greater than 30
[2021-04-12] MEDS: ALBUTEROL HFA INHALER INHALATION SCH ×2 (15:57→19:38)
[2021-04-12] MEDS ORDERED: ONDANSETRON 4 MG/2 ML VIAL IVP PRN (16:19)
[2021-04-12] MEDS: SYMBICORT 160-4.5 MCG INHALER INHALATION SCH (19:38)
[2021-04-12] MEDS ORDERED: SYMBICORT 80-4.5 MCG INHALER INHALATION SCH (20:00)
[2021-04-12] MEDS ORDERED: FORMOTEROL FUMARATE 20 MCG/2 ML NEBU INHALATION SCH (20:00)
[2021-04-12] MEDS ORDERED: BUDESONIDE 1 MG/2 ML NEBU INHALATION SCH (20:00)
[2021-04-12] MEDS: MELATONIN 3 MG TABLET PO SCH (20:56)
[2021-04-12] MEDS: RIVAROXABAN 15 MG TAB PO SCH (20:56)
[2021-04-12] MEDS: FOLIC ACID 1 MG TAB PO SCH (20:56)
[2021-04-12] MEDS: ACETAMINOPHEN TAB 325 MG TAB PO PRN (20:56)
[2021-04-12] MEDS: MONTELUKAST 10 MG TAB PO SCH (20:56)
[2021-04-12] MEDS: ATORVASTATIN 40 MG TAB PO SCH (20:56)
[2021-04-13] MEDS: PANTOPRAZOLE 40 MG TABLET PO SCH (06:48)
[2021-04-13] MEDS: LEVOTHYROXINE 50 MCG TAB PO SCH (06:48)
[2021-04-13] MEDS: FUROSEMIDE 20 MG TAB PO SCH (07:59)
[2021-04-13] MEDS: FLUoxetine HCL 20 MG CAP PO SCH (07:59)
[2021-04-13] MEDS: POTASSIUM CHLORIDE ER 10 MEQ TAB.ER.PRT PO SCH (08:00)
[2021-04-13] MEDS ORDERED: LOSARTAN 25 MG TAB PO STA (08:25)
[2021-04-13] MEDS: ASPIRIN 81 MG PO SCH (08:49)
[2021-04-13] MEDS ORDERED: ASPIRIN 325 MG TAB PO SCH (09:00)
[2021-04-13] MEDS ORDERED: METOPROLOL TARTRATE 12.5 MG TAB PO SCH (09:00)
[2021-04-13] MEDS ORDERED: CLOPIDOGREL 75 MG TAB PO SCH (09:00)
[2021-04-13] MEDS ORDERED: LOSARTAN 50 MG TAB PO SCH (09:00)
--- NOTE | 2021-04-13 09:03 | ECHOF ---
Referral Reason:sob MEASUREMENTS -------- HEIGHT: 182.9 cm WEIGHT: 97.5 kg BP: 151/84 RVIDd: 3.0 cm (< 3.3) IVSd: 1.5 cm (0.6 - 1.1) LVIDd: 4.6 cm (3.9 - 5.3) LVPWd: 1.6 cm (0.6 - 1.1) IVSs: 1.8 cm LVIDs: 3.3 cm LVPWs: 1.9 cm LA Diam: 4.1 cm (2.7 - 3.8) Ao Diam: 3.1 cm (2.0 - 3.7) MV E Carl: 0.89 m/s MV DecT: 353 ms MV A Carl: 1.35 m/s MV E/A Ratio: 0.66 AV maxP.42 mmHg AV meanP.14 mmHg FINDINGS -------- Sinus rhythm. This was a technically difficult study with suboptimal views. The left ventricular size is normal. There is moderate concentric left ventricular hypertrophy. O verall left ventricular systolic function is normal with, an EF between 60 - 65 %. The right ventricle is normal in size. The global wall thickness of the right ventricle is mildly e nlarged. The left atrium is mildly dilated. 5 ml of Lumason was utilized for enhancement of images. Peak/mean gradient across the Aortic Valve is 19.42mmHg / 11.14mmHg. Normally functioning bioprosth etic valve. TAVR procedure done Mild mitral annular calcification present. Unable to estimate RVSP due to inadequate TR jet spectral doppler profile. The pulmonic valve was not well visualized. The aortic root size is normal. IVC Not well visulized. Echo free space indicative of a pericardial fat pad. There is no pericardial effusion. CONCLUSIONS -------- 1. The left ventricular size is normal. 2. There is moderate concentric left ventricular hypertrophy. 3. Overall left ventricular systolic function is normal with, an EF between 60 - 65 %. 4. The global wall thickness of the right ventricle is mildly enlarged. 5. The left atrium is mildly dilated. 6. 5 ml of Lumason was utilized for enhancement of images. 7. Peak/mean gradient across the Aortic Valve is 19.42mmHg / 11.14mmHg. 8. Normally functioning bioprosthetic valve. 9. TAVR procedure done 10. Mild mitral annular calcification present. 11. Echo free space indicative of a pericardial fat pad. 12. There is no pericardial effusion. PASTEURIZER HELPER: Verona Burr RDCS
[2021-04-13 09:39] LABS: Magnesium 2.1 mg/dL (1.6-2.3)
--- NOTE | 2021-04-13 09:43 | P.PN ---
Subjective Progress Note Date: 04/13/21 HISTORY OF PRESENT ILLNESS: This is a pleasant 81-year-old male past medical history significant for coronary artery disease status post PCI of the RCA and diagonal branch, valvular heart disease status post TAVR, paroxysmal atrial fibrillation, hypertension, lung cancer currently in remission and dyslipidemia. He follows in the office with Dr. Kong. We have been asked to see in consultation for chest pain. He presented to the hospital with symptoms of cough, shortness of breath and upper respiratory congestion. He is status post bronchoscopy [address] Kenney. He states the symptoms seem to have gotten progressively worse since that time. He has been diagnosed on this admission with pneumonia and is currently receiving antibiotics. He is seen and examined sitting up in the emergency department in no acute distress. He has no symptoms of chest discomfort, dizziness or palpitations. He feels stable at rest but states if he gets up and doesn't activity he would feel short of breath. He continues to cough. He is not bringing up any significant sputum at this time. DIAGNOSTICS EKG reveals sinus mechanism. Chest xray chronic appearing density of the left lower lobe increasing left perihilar density. Laboratory reviewed, WBC 6.7, hemoglobin 13, platelets 217, sodium 1:30, potassium 4.5, creatinine 1.44, magnesium 1.4, troponin 0.050, 0.058 and NT proBNP 741. Current cardiac medications include Lasix 20 mg daily, Plavix 75 mg daily, Xarelto 15 mg daily, atorvastatin 40 mg daily, losartan 50 mg daily and Lopressor 12.5 mg daily. Most recent echocardiogram prior to valvular surgery revealed preserved LV systolic function with ejection fraction 65%, moderate concentric LVH, mildly dilated left atrium, mild aortic regurgitation, moderate to severe with mean gradient of 36 mmHg, severely calcified aortic valve, mild to moderate mitral regurgitation, mild to moderate mitral stenosis with mitral valve area of 1.36 cm and a mean gradient of 2 mmHg, mild to moderate tricuspid regurgitation with an RVSP of 31 mmHg. 04/13/2021 Patient examined this morning at the bedside. Patient denies any chest pain or pressure. He does report some mild chest discomfort when he is coughing. He continues to have an occasional cough. He states he is short of breath when he is up and bleeding to the bathroom. He remains on oxygen. Echocardiogram completed revealed ejection fraction 60-65%. Normally functioning bioprosthetic valve. Mean/peak gradient across the aortic valve is 19.42 mmHg/11.14 mmHg. Blood pressure elevated this morning at 153/105. PHYSICAL EXAM: VITAL SIGNS: Reviewed. GENERAL: Well-developed in no acute distress. NECK: Supple. No JVD or thyromegaly LUNGS: Respirations even and unlabored. Lungs essentially clear to auscultation bilaterally. HEART: Regular rate and rhythm. S1 and S2 heard. Systolic murmur noted. EXTREMITIES: Normal range of motion. No clubbing or cyanosis. Peripheral pulses intact. No lower extremity edema ASSESSMENT: Possible pneumonia Abnormal troponins, not indicative of acute coronary syndrome Coronary artery disease status post PCI Aortic stenosis status post TAVR August 2020 Hypomagnesemia Hypertension Hyperlipidemia Paroxysmal atrial for relation on Xarelto History of lung cancer PLAN: Continue current cardiac medications Increase metoprolol to twice a day dosing. Increase Cozaar to 75 mg daily Continue to monitor blood pressure Continue additional cardiac medications including aspirin 81 mg daily, Lipitor 40 mg daily, Lasix 20 mg daily, and Xarelto 15 mg at night Further recommendations pending patient course Nurse practitioner note has been reviewed by physician. Signing provider agrees with the documented findings, assessment, and plan of care. Objective - Vital Signs Vital signs: Vital Signs Temp 98.0 F 04/13/21 07:37 Pulse 78 04/13/21 07:39 Resp 18 04/13/21 07:39 BP 153/105 04/13/21 07:37 Pulse Ox 92 L 04/13/21 07:37 Intake & Output 04/12/21 04/13/21 04/13/21 18:59 06:59 18:59 Intake Total 240 240 Output Total 220 Balance 240 -220 240 Weight 97.522 kg 99.1 kg Intake: Oral 240 240 Output: Urine 220 Other: Voiding Method Urinal Urinal Urinal # Voids 1 - Labs CBC & Chem 7: 04/12/21 07:58 04/12/21 07:58 Labs: Abnormal Lab Results - Last 24 Hours (Table) 04/12/21 04/12/21 Range/Units 10:30 13:32 Troponin I 0.058 H* 0.050 H* (0.000-0.034) ng/mL
[2021-04-13] MEDS: ALBUTEROL HFA INHALER INHALATION SCH ×4 (09:47→19:23)
[2021-04-13] MEDS: SYMBICORT 160-4.5 MCG INHALER INHALATION SCH ×2 (09:47→19:23)
[2021-04-13] MEDS ORDERED: FLUTICASONE 50MCG/SPRAY NASAL 16GM EA NOSTRIL PRN (10:51)
[2021-04-13] MEDS: AZITHROMYCIN 500 MG TAB PO SCH (11:33)
--- NOTE | 2021-04-13 11:41 | P.PN ---
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 Most recently in 2018 patient was treated with Opdivo. Most recent CT of the chest, abdomen and pelvis without contrast from January 14,021 showed stable right upper lobe subpleural nodule, right basilar subpleural nodule which was unchanged, and right lower lobe pulmonary nodule which was unchanged. The right upper lobe subpleural nodule slightly increased from 2.6-2.7 compared to May [address] chest. Patient has upcoming follow-up CT of the chest abdomen and pelvis in April 2021. He is currently not on any active treatment for his lung cancer. Other medical history includes coronary artery disease, with previous history of stenting, most recently from July 2020 with 3 stents placed to the mid RCA and the diagonal branch, history of paroxysmal atrial fibrillation on Xarelto, valvular heart disease status post TAVR, hypertension, dyslipidemia, hearing disorder with hearing aid. The patient is a bronchoscopy and bronchial lavage with approximately 2 weeks ago of the cultures indicated Shirin and Rhodotorula . The patient is coming in today because of worsening shortness of breath. Yesterday he woke up from sleep having some difficulties in breathing. No reported chest pain. He has a chronic cough. Denies having any worsening of his cough and. No hemoptysis. No pleurisy. His limited normal. Coagulation with Xarelto. No recent history of DVT or embolism. Most recent CAT scan of the chest that was done in December 2020 showed no evidence of any pneumonia. We will some chronic scarring in the left lung base. No evidence of tumor progression. No evidence of any pleural effusion. Her diet, the patient about coming into the hospital. The chest x-ray showed chronic abnormalities. Troponin was elevated and there was some limited troponin leak without any acute acute changes. The patient was admitted to the medical floor. Consultation was requested regarding the possibility of a pneumonia. Note that the patient has COPD his FEV1 is order of 60% of predicted. He has been maintained on Trelegy Ellipta one inhalation a day in addition to albuterol HFA and nebulizer on a when necessary basis. The white cell count is at 6.7. Sodium is 130. Creatinine is up to 1.4. On 04/13/2021 patient is seen in follow-up on selective care unit, he states he is feeling much better today, breathing easier, he is on room air pulse ox of 93%, his been afebrile overnight, blood pressure has been running slightly on the elevated side with a systolic in the 150s and diastolic in 70s to 100 range. Cardiology is following, and has made some adjustments to his blood pressure medications. Lung sounds are clear, no wheezing no coughing, patient is complaining of some clear nasal drainage. He states he has had multiple surgeries on his sinuses in the past. No fever or chills. The procalcitonin level came back low at 0.09. Echocardiogram has been noted, showing moderate concentric LVH, and normal left ventricle systolic function with an EF of 60- 65%. Objective - Vital Signs Vital signs: Vital Signs Temp 97.9 F 04/13/21 11:04 Pulse 75 04/13/21 11:04 Resp 18 04/13/21 11:04 BP 137/80 04/13/21 11:04 Pulse Ox 93 L 04/13/21 11:04 Intake & Output 04/12/21 04/13/21 04/13/21 18:59 06:59 18:59 Intake Total 240 240 Output Total 220 Balance 240 -220 240 Weight 97.522 kg 99.1 kg Intake: Oral 240 240 Output: Urine 220 Other: Voiding Method Urinal Urinal Urinal # Voids 1 2 - Exam GENERAL EXAM: Alert, very pleasant, 81-year-old white male, a normal with pulse ox of 93% comfortable in no apparent distress. HEAD: Normocephalic/atraumatic. EYES: Normal reaction of pupils, equal size. Conjunctiva pink, sclera white. NOSE: Clear with pink turbinates. THROAT: No erythema or exudates. NECK: No masses, no JVD, no thyroid enlargement, no adenopathy. CHEST: No chest wall deformity. Symmetrical expansion. LUNGS: Equal air entry with no crackles, wheeze, rhonchi or dullness. CVS: Regular rate and rhythm, normal S1 and S2, no gallops, no murmurs, no rubs ABDOMEN: Soft, nontender. No hepatosplenomegaly, normal bowel sounds, no guarding or rigidity. EXTREMITIES: No clubbing, no edema, no cyanosis, 2+ pulses and upper and lower extremities. MUSCULOSKELETAL: Muscle strength and tone normal. SPINE: No scoliosis or deformity SKIN: No rashes CENTRAL NERVOUS SYSTEM: Alert and oriented -3. No focal deficits, tone is normal in all 4 extremities. PSYCHIATRIC: Alert and oriented -3. Appropriate affect. Intact judgment and insight. - Labs CBC & Chem 7: 04/12/21 07:58 04/12/21 07:58 Labs: Abnormal Lab Results - Last 24 Hours (Table) 04/12/21 04/12/21 Range/Units 10:30 13:32 Troponin I 0.058 H* 0.050 H* (0.000-0.034) ng/mL Assessment and Plan Plan: 1 shortness of breath under investigation. The patient is known to have COPD. There is no clear indication of an acute COPD exacerbation. No indication of pneumonia. Procalcitonin level was negative at 0.09. The most is a bronchoscopy showed Shirin. Nevertheless, based on the follow-up chest x-ray the most recent CAT scan of the chest from December 2020, there is no indication for any pneumonia or recurrent malignancy. No indication of pulmonary embolism and the patient is on long-term anticoagulation with Xarelto. 2 coronary artery disease with previous coronary stenting 3 3 troponin leak without any acute chest pain, consider angina equivalent with secondary shortness of breath 4 history of atrial fibrillation current rhythm is sinus 5 aortic valve stenosis, post TAVR procedure 6 hyperlipidemia 7 chronic kidney disease with a creatinine of 1.4 8 history of lung cancer, with a malignant pleural effusion treated with systemic chemotherapy. His disease remains in remission and the most recent CAT scan of the chest showed no evidence of any tumor or pleural effusion 9 history of colostomy/ball resection for small bowel obstruction with subsequent reversal 10 history of prostate cancer treated with radiation therapy 11 history of skin cancer resected. 12 hypothyroidism 13 Hypertension Plan Continue oral azithromycin Flonase will be added Patient is breathing comfortably, pro-calcitonin level is low, no fever or chills, no clear indication for pneumonia Increase activity as tolerated Possible discharge home today or tomorrow if remains stable and been cleared by cardiology I performed a history & physical examination of the patient and discussed their management with my nurse practitioner, Ladan Awad. I reviewed the nurse practitioner's note and agree with the documented findings and plan of care. Lung sounds are positive for clear with a few rhonchi throughout the lung li. The findings and the impression was discussed with the patient. I attest to the documentation by the nurse practitioner. Time with Patient: Less than 30
--- NOTE | 2021-04-13 15:24 | P.PN ---
Progress Note - Text Progress Note Date: 04/13/21 Chief Complaint: Congested chest History present complaint: This is a pleasant 81-year-old patient of Dr. Roxie Melendez. Chronic stable medical conditions include coronary artery disease, CHF with EF of 50-65%, moderate aortic stenosis with sclerosis, COPD, GERD, hyperlipidemia, hypertension, primary osteoarthritis,(s) sleep apnea, hypothyroid. 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 treated with chemotherapy -being followed with Dr. Rutherford. Patient received last chemotherapy in October 2019 History of Grabiel fundoplication, has had small bowel obstruction with resection colostomy and reversal of the same. prostate cancer treated with radiation.. On 03/31/2021, patient underwent bronchoscopy with lavage by Dr. Sheppard for recurrent pneumonia of the left lower lobe. Found to have bronchomalacia, some hyperemia and fragile mucosa, and pathology came back negative for malignant cells. Cultures were positive for Shirin albicans and Rhodotorula mucilaginosa Patient now presents that since the procedures been having increasing amount of congestion cough. Wheezing. Decreased appetite no phlegm. Some fever. Has had some dizziness also having intermittent chest tightness with coughing. And some chest pain. No radiation. Decided to come in. Tired rundown. Review of systems: GEN.: A bit tired, decreased appetite EYES: None HEENT: None NECK: None RESPIRATORY: As above CARDIOVASCULAR: As above GASTROINTESTINAL: None GENITOURINARY: None MUSCULOSKELETAL: Some joint pains LYMPHATICS: None HEMATOLOGICAL: None PSYCHIATRY: None NEUROLOGICAL: None Past medical history: Include Coronary artery disease with stent , stage IV adenocarcinoma of the lung on chemotherapy-last time in October 2019, history of Grabiel fundoplication, COPD in an ex-smoker, hypothyroidism, essential hypertension, hyperlipidemia, obstructive sleep apnea, CHF with diastolic dysfunction, moderate aortic stenosis with sclerosis. January 2020 - GI bleed. EGD was unremarkable. Bronchomalacia Admitted with possible pneumonia/tracheobronchitis. Patient antibiotics and Diflucan. April 13: Seen by pulmonary. Not felt to be pneumonia. Procalcitonin came back at 0.09. Antibiotics discontinued. On Diflucan. Breathing better. Oral intake good. Review of systems: Was done for constitutional, cardiovascular, GI, pulmonary. relevant finding as above Active Medications Acetaminophen (Acetaminophen Tab 325 Mg Tab) 650 mg PO Q6HR PRN PRN Reason: Mild Discomfort Last Admin: 04/12/21 20:56 Dose: 650 mg Documented by: Albuterol Sulfate (Albuterol Hfa Inhaler) 2 puff INHALATION RT-QID PRN PRN Reason: Shortness Of Breath Or Wheezing Albuterol Sulfate (Albuterol Hfa Inhaler) 2 puff INHALATION RT-QID [facility] Last Admin: 04/13/21 14:30 Dose: Not Given Documented by: Aspirin (Aspirin 81 Mg) 81 mg PO DAILY [facility] Last Admin: 04/13/21 08:49 Dose: Not Given Documented by: Atorvastatin Calcium (Atorvastatin 40 Mg Tab) 40 mg PO [facility] Last Admin: 04/12/21 20:56 Dose: 40 mg Documented by: Azithromycin (Azithromycin 500 Mg Tab) 500 mg PO DAILY [facility] Last Admin: 04/13/21 11:33 Dose: 500 mg Documented by: Budesonide/Formoterol Fumarate (Symbicort 160-4.5 Mcg Inhaler) 2 puff INHALATION RT-BID [facility] Last Admin: 04/13/21 09:47 Dose: 2 puff Documented by: Fluconazole (Fluconazole 150 Mg Tab) 150 mg PO DAILY [facility] Last Admin: 04/12/21 13:37 Dose: 150 mg Documented by: Fluoxetine HCl (Fluoxetine Hcl 20 Mg Cap) 20 mg PO [facility] Last Admin: 04/13/21 07:59 Dose: 20 mg Documented by: Fluticasone Propionate (Fluticasone 50mcg/[place] Nasal 16gm) 2 spray EA NOSTRIL DAILY PRN PRN Reason: Allergy Symptoms Folic Acid (Folic Acid 1 Mg Tab) 1 mg PO [facility] Last Admin: 04/12/21 20:56 Dose: 1 mg Documented by: Furosemide ([facility]semide 20 Mg Tab) [facility] Last Admin: 04/13/21 07:59 Dose: 20 mg Documented by: Levothyroxine Sodium (Levothyroxine 50 Mcg Tab) 50 mcg PO QA@0630 [facility] Last Admin: 04/13/21 06:48 Dose: 50 mcg Documented by: Losartan Potassium (Losartan 25 Mg Tab) [facility] Melatonin (Melatonin 3 Mg Tablet) 3 mg PO [facility] Last Admin: 04/12/21 20:56 Dose: 3 mg Documented by: Metoprolol Tartrate (Metoprolol Tartrate 12.5 Mg Tab) 12.5 mg PO BID [facility] Miscellaneous Information (Magnesium Replacement Protocol 1 Each Misc) 1 each MISCELLANE DAILY PRN; Protocol PRN Reason: Per Protocol Montelukast Sodium (Montelukast 10 Mg Tab) 10 mg PO [facility] Last Admin: 04/12/21 20:56 Dose: 10 mg Documented by: Nitroglycerin (Nitroglycerin Sl Tabs 0.4 Mg Tab) 0.4 mg SUBLINGUAL Q5M PRN PRN Reason: Chest Pain Oxymetazoline HCl (Oxymetazoline 0.05% Nasl [place] 1 [place] Bottle) 3 spray NASAL BID PRN PRN Reason: Sinus Symptoms Pantoprazole Sodium (Pantoprazole 40 Mg Tablet) 40 mg PO AC-BRKFST [facility] Last Admin: 04/13/21 06:48 Dose: 40 mg Documented by: Potassium Chloride (Potassium Chloride Er 10 Meq Tab.Er.Prt) 10 meq PO DAILY [facility] Last Admin: 04/13/21 08:00 Dose: 10 meq Documented by: Rivaroxaban (Rivaroxaban 15 Mg Tab) 15 mg PO [facility]; Protocol Last Admin: 04/12/21 20:56 Dose: 15 mg Documented by: Social history: . Smoked from age of 14 through 1982 . alcohol occasionally. Retired. Family history: sister had rectal cancer Physical examination: VITAL SIGNS: He 7.9, 75, 18, 137/80, 93% room air GENERAL: The declining in bed, looking better EYES: Pupils equal. Conjunctiva normal. HEENT: External appearance of nose and ears normal, oral cavity normal. NECK: JVD not raised; masses not palpable. HEART: First and second heart sounds are normal; no edema. LUNGS: Respiratory rate increased, improved breath sounds. ABDOMEN: Soft, distended, , liver spleen not palpable, no masses palpable. PSYCH: Alert and oriented x3; mood and affect anxious INVESTIGATIONS, reviewed in the clinical context: WBC 6.7 hemoglobin 13 platelets 217 sodium 1:30 potassium 4.5 BUN 23 creatinine 1.44 Troponin I 0.050, 0.058, 0.050 COVID 19: PCR/not detected Pro-calcitonin 0.09 ProBNP 741 EKG tracing personally reviewed by me-normal sinus rhythm Chest x-ray film personally reviewed by me-haziness on the left base. Vascular interstitial prominence. Assessment and plan: -Positive troponin with chest pains. Somewhat atypical presentation. Seen by cardiology. Not felt to be ACS. No further workup. -No pneumonia. Recent BAL results showed Shirin albicans and Rhodotorula mucilaginosa Antibiotics discontinued per pulmonary. Diflucan. -Chronic tracheal bronchomalacia -Colonic diverticulosis, asymptomatic - Grabiel fundoplication, -Coronary artery disease with a prior history of stent Aspirin, Lopressor, Lipitor -Stage IV adenocarcinoma of the lung on chemotherapy Follows with oncology to, Dr. Rutherford -Acute COPD exacerbation in an ex-smoker- Inhaled steroids. Nebulized bronchodilators. -Hypothyroidism Synthroid 50 g daily -Essential hypertension Cozaar 50 mg daily, Lopressor 12.5 daily, -Hyperlipidemia Lipitor 40 mg daily at bedtime -Obstructive sleep apnea -Chronic congestive heart failure from diastolic dysfunction EF 50-60%. No acute exacerbation. Follow clinically -Moderate aortic stenosis with sclerosis nonrheumatic Follow clinically -Primary osteoarthritis multiple joints Use. Medications as needed -Chronic kidney disease. 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 Follow clinically -Paroxysmal atrial fibrillation, currently in sinus rhythm On Lopressor. Xarelto Continue current medication treatment plan. Increase activity. Hopefully home tomorrow. Antibiotics discontinued.
[2021-04-13 15:54] LABS: Chol/HDL Ratio 4.46; LDL Cholesterol,Calculated 51.4 mg/dL (0.0-131.0); VLDL Calculation 45.6 mg/dL (5.00-40.00)
[2021-04-13] MEDS: ACETAMINOPHEN TAB 325 MG TAB PO PRN (21:01)
[2021-04-13] MEDS: METOPROLOL TARTRATE 12.5 MG TAB PO SCH (21:01)
[2021-04-13] MEDS: MONTELUKAST 10 MG TAB PO SCH (21:01)
[2021-04-13] MEDS: FOLIC ACID 1 MG TAB PO SCH (21:02)
[2021-04-13] MEDS: MELATONIN 3 MG TABLET PO SCH (21:02)
[2021-04-13] MEDS: ATORVASTATIN 40 MG TAB PO SCH (21:02)
[2021-04-13] MEDS: RIVAROXABAN 15 MG TAB PO SCH (21:02)
[2021-04-14 04:23] VITALS: RESP 18
[2021-04-14] MEDS: LEVOTHYROXINE 50 MCG TAB PO SCH (06:36)
[2021-04-14] MEDS: PANTOPRAZOLE 40 MG TABLET PO SCH (06:36)
[2021-04-14] MEDS: SYMBICORT 160-4.5 MCG INHALER INHALATION SCH (07:17)
[2021-04-14] MEDS: ALBUTEROL HFA INHALER INHALATION SCH ×2 (07:17→10:51)
[2021-04-14] MEDS ORDERED: ONDANSETRON 4 MG/2 ML VIAL IVP PRN (08:27)
[2021-04-14 08:42] VITALS: BP 142/84; PULSE 75; TEMP 97.6
[2021-04-14] MEDS: FUROSEMIDE 20 MG TAB PO SCH (08:46)
[2021-04-14] MEDS: METOPROLOL TARTRATE 12.5 MG TAB PO SCH (08:46)
[2021-04-14] MEDS: FLUCONAZOLE 150 MG TAB PO SCH (08:46)
[2021-04-14] MEDS: AZITHROMYCIN 500 MG TAB PO SCH (08:46)
[2021-04-14] MEDS: ASPIRIN 81 MG PO SCH (08:46)
[2021-04-14] MEDS: POTASSIUM CHLORIDE ER 10 MEQ TAB.ER.PRT PO SCH (08:48)
[2021-04-14] MEDS: FLUoxetine HCL 20 MG CAP PO SCH (08:48)
[2021-04-14] MEDS: ACETAMINOPHEN TAB 325 MG TAB PO PRN (08:55)
[2021-04-14] MEDS ORDERED: LOSARTAN 25 MG TAB PO SCH (09:00)
--- NOTE | 2021-04-14 11:41 | P.PN ---
Subjective Progress Note Date: 04/14/21 HISTORY OF PRESENT ILLNESS: This is a pleasant 81-year-old male past medical history significant for coronary artery disease status post PCI of the RCA and diagonal branch, valvular heart disease status post TAVR, paroxysmal atrial fibrillation, hypertension, lung cancer currently in remission and dyslipidemia. He follows in the office with Dr. Kong. We have been asked to see in consultation for chest pain. He presented to the hospital with symptoms of cough, shortness of breath and upper respiratory congestion. He is status post bronchoscopy [address] Kenney. He states the symptoms seem to have gotten progressively worse since that time. He has been diagnosed on this admission with pneumonia and is currently receiving antibiotics. He is seen and examined sitting up in the emergency department in no acute distress. He has no symptoms of chest discomfort, dizziness or palpitations. He feels stable at rest but states if he gets up and doesn't activity he would feel short of breath. He continues to cough. He is not bringing up any significant sputum at this time. DIAGNOSTICS EKG reveals sinus mechanism. Chest xray chronic appearing density of the left lower lobe increasing left perihilar density. Laboratory reviewed, WBC 6.7, hemoglobin 13, platelets 217, sodium 1:30, potassium 4.5, creatinine 1.44, magnesium 1.4, troponin 0.050, 0.058 and NT proBNP 741. Current cardiac medications include Lasix 20 mg daily, Plavix 75 mg daily, Xarelto 15 mg daily, atorvastatin 40 mg daily, losartan 50 mg daily and Lopressor 12.5 mg daily. Most recent echocardiogram prior to valvular surgery revealed preserved LV systolic function with ejection fraction 65%, moderate concentric LVH, mildly dilated left atrium, mild aortic regurgitation, moderate to severe with mean gradient of 36 mmHg, severely calcified aortic valve, mild to moderate mitral regurgitation, mild to moderate mitral stenosis with mitral valve area of 1.36 cm and a mean gradient of 2 mmHg, mild to moderate tricuspid regurgitation with an RVSP of 31 mmHg. 04/13/2021 Patient examined this morning at the bedside. Patient denies any chest pain or pressure. He does report some mild chest discomfort when he is coughing. He continues to have an occasional cough. He states he is short of breath when he is up and bleeding to the bathroom. He remains on oxygen. Echocardiogram completed revealed ejection fraction 60-65%. Normally functioning bioprosthetic valve. Mean/peak gradient across the aortic valve is 19.42 mmHg/11.14 mmHg. Blood pressure elevated this morning at 153/105. 04/14/2021 Patient examined this morning at the bedside. He denies chest pain or pressure. He denies shortness of breath. He does report a cough but states he is not able to bring any sputum up. He is on 2 L nasal cannula with oxygen saturations greater than 92%. Telemetry reveals sinus mechanism with heart rate in the 70s. Most recent blood pressures 120/76 and 142/84. PHYSICAL EXAM: VITAL SIGNS: Reviewed. GENERAL: Well-developed in no acute distress. NECK: Supple. No JVD or thyromegaly LUNGS: Respirations even and unlabored. Lungs essentially clear to auscultation bilaterally. HEART: Regular rate and rhythm. S1 and S2 heard. Systolic murmur noted. EXTREMITIES: Normal range of motion. No clubbing or cyanosis. Peripheral pulses intact. No lower extremity edema ASSESSMENT: Possible pneumonia Abnormal troponins, not indicative of acute coronary syndrome Coronary artery disease status post PCI Aortic stenosis status post TAVR August 2020 Hypomagnesemia Hypertension Hyperlipidemia Paroxysmal atrial for relation on Xarelto History of lung cancer PLAN: Continue current cardiac medications including metoprolol 12.5 mg twice a day, Cozaar 75 mg daily, aspirin 81 mg daily, Lipitor 40 mg daily, Lasix 20 mg daily, and Xarelto 15 mg at night We will sign off. Please reconsult if needed. Nurse practitioner note has been reviewed by physician. Signing provider agrees with the documented findings, assessment, and plan of care. Objective - Vital Signs Vital signs: Vital Signs Temp 97.6 F 04/14/21 08:41 Pulse 75 04/14/21 08:41 Resp 18 04/14/21 08:41 BP 142/84 04/14/21 08:41 Pulse Ox 95 04/14/21 08:41 Intake & Output 04/13/21 04/14/21 04/14/21 18:59 06:59 18:59 Intake Total 480 600 Balance 480 600 Weight 100.6 kg Intake: Oral 480 600 Other: Voiding Method Urinal Urinal # Voids 2 4 - Labs CBC & Chem 7: 04/12/21 07:58 04/12/21 07:58 Labs: Abnormal Lab Results - Last 24 Hours (Table) 04/13/21 Range/Units 08:30 Triglycerides 228.0 H (0.0-149.0) mg/dL VLDL Cholesterol, Calc 45.60 H (5.00-40.00) mg/dL HDL Cholesterol 28.0 L (40.0-60.0) mg/dL Microbiology - Last 24 Hours (Table) 04/12/21 09:22 Blood Culture - Preliminary Blood No Growth after 24 hours 04/12/21 09:00 Blood Culture - Preliminary Blood No Growth after 24 hours
--- NOTE | 2021-04-14 20:35 | P.DS ---
Providers Date of admission: 04/12/21 09:47 Expected date of discharge: 04/14/21 Attending physician: Tres Mina Consults: 04/12/21 09:09 Consult Physician Urgent Consulting Provider: Anthony Sheppard Consult Reason/Comments: Pneumonia, recent bronchoscopy Do you want consulting provider notified?: Yes Consult Physician Urgent Consulting Provider: Dexter Kong Consult Reason/Comments: chest pain Do you want consulting provider notified?: Yes Primary care physician: Roxie Melendez [facility] Course: Chief Complaint: Congested chest History present complaint: This is a pleasant 81-year-old patient of Dr. Roxie Melendez. Chronic stable medical conditions include coronary artery disease, CHF with EF of 50-65%, moderate aortic stenosis with sclerosis, COPD, GERD, hyperlipidemia, hypertension, primary osteoarthritis,(s) sleep apnea, hypothyroid. 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 treated with chemotherapy -being followed with Dr. Rutherford. Patient received last chemotherapy in October 2019 History of Grabiel fundoplication, has had small bowel obstruction with resection colostomy and reversal of the same. prostate cancer treated with radiation.. On 03/31/2021, patient underwent bronchoscopy with lavage by Dr. Sheppard for recurrent pneumonia of the left lower lobe. Found to have bronchomalacia, some hyperemia and fragile mucosa, and pathology came back negative for malignant cells. Cultures were positive for Shirin albicans and Rhodotorula mucilaginosa Patient now presents that since the procedures been having increasing amount of congestion cough. Wheezing. Decreased appetite no phlegm. Some fever. Has had some dizziness also having intermittent chest tightness with coughing. And some chest pain. No radiation. Decided to come in. Tired rundown. April 13: Seen by pulmonary. Not felt to be pneumonia. Procalcitonin came back at 0.09. Antibiotics discontinued. On Diflucan. Breathing better. Oral intake good. April 14: Patient felt to have COPD exacerbation. Responded well to bronchodilators. Diflucan was added. Seen by pulmonary. Antibiotics discontinued. Patient is feeling much better today compared to course of Diflucan. Care was discussed. Consultation: Dr. Sigala from [facility] Past medical history: Include Coronary artery disease with stent , stage IV adenocarcinoma of the lung on chemotherapy-last time in October 2019, history of Grabiel fundoplication, COPD in an ex-smoker, hypothyroidism, essential hypertension, hyperlipidemia, obstructive sleep apnea, CHF with diastolic dysfunction, moderate aortic stenosis with sclerosis. January 2020 - GI bleed. EGD was unremarkable. Bronchomalacia Social history: . Smoked from age of 14 through 1982 . alcohol occasionally. Retired. Family history: sister had rectal cancer Physical examination: VITAL SIGNS: 97.6, 75, 18, 142/84, 95% on 2 L GENERAL: Sitting up, looking better EYES: Pupils equal. Conjunctiva normal. HEENT: External appearance of nose and ears normal, oral cavity normal. NECK: JVD not raised; masses not palpable. HEART: First and second heart sounds are normal; no edema. LUNGS: Respiratory rate normal, improved breath sounds. ABDOMEN: Soft, distended, , liver spleen not palpable, no masses palpable. PSYCH: Alert and oriented x3; mood and affect anxious INVESTIGATIONS, reviewed in the clinical context: WBC 6.7 hemoglobin 13 platelets 217 sodium 1:30 potassium 4.5 BUN 23 creatinine 1.44 Troponin I 0.050, 0.058, 0.050 2-D echocardiogram: H 60-65%. Moderate concentric LVH. COVID 19: PCR/not detected Pro-calcitonin 0.09 ProBNP 741 EKG tracing personally reviewed by me-normal sinus rhythm Chest x-ray film personally reviewed by me-haziness on the left base. Vascular interstitial prominence. Assessment and plan: -Acute COPD exacerbation in an ex-smoker- Inhaled steroids. Nebulized bronchodilators. -No pneumonia. Recent BAL results showed Shirin albicans and Rhodotorula mucilaginosa Antibiotics discontinued per pulmonary. Diflucan. -Chronic tracheal bronchomalacia -Colonic diverticulosis, asymptomatic - Grabiel fundoplication, -Positive troponin with chest pains. Somewhat atypical presentation. Seen by cardiology. Not felt to be ACS. No further workup. -Coronary artery disease with a prior history of stent Aspirin, Lopressor, Lipitor -Stage IV adenocarcinoma of the lung on chemotherapy Follows with oncology to, Dr. Rutherford -Hypothyroidism Synthroid 50 g daily -Essential hypertension Cozaar 50 mg daily, Lopressor 12.5 daily, -Hyperlipidemia Lipitor 40 mg daily at bedtime -Obstructive sleep apnea -Chronic congestive heart failure from diastolic dysfunction EF 50-60%. No acute exacerbation. Follow clinically -Moderate aortic stenosis with sclerosis nonrheumatic Follow clinically -Primary osteoarthritis multiple joints Use. Medications as needed -Chronic kidney disease. 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 Follow clinically -Paroxysmal atrial fibrillation, currently in sinus rhythm On Lopressor. Xarelto Disposition: Home Patient Condition at Discharge: Fair Plan - Discharge Summary Discharge Rx Participant: No New Discharge Prescriptions: New Fluconazole [Diflucan] 150 mg PO DAILY #7 tab Budesonide-Formot 160-4.5 Mcg [Symbicort 160-4.5 Mcg Inhaler] 2 puff INHALATION RT-BID #1 puff Azithromycin [Zithromax] 500 mg PO DAILY #3 tab Continue Ipratropium-Albuterol Nebulize [Duoneb 0.5 mg-3 mg/3 ml Soln] 3 ml INHALATION RT-QID PRN PRN Reason: Shortness Of Breath Rivaroxaban [Xarelto] 15 mg PO HS #0 Albuterol Inhaler [Ventolin Hfa Inhaler] 1 - 2 puff INHALATION RT-QID PRN PRN Reason: Shortness Of Breath Loratadine-Pseudoeph 5-120 mg [Claritin-D 12 Hour] 1 tab PO Q12HR PRN PRN Reason: Congestion No Action Levothyroxine Sodium [Synthroid] 50 mcg PO QAM FLUoxetine HCL [PROzac] 20 mg PO QAM Omeprazole [PriLOSEC] 40 mg PO HS Folic Acid 1 mg PO HS Fluticasone/Umeclidin/Vilanter [Trelegy Ellipta 100-62.5-25] 1 puff INHALATION RT-DAILY L.acidoph,Paracasei, B.lactis [Probiotic] 1 cap PO HS Oxymetazoline 0.05% Nasl Cory [Afrin 0.05% Nasal Cory] 3 spray NASAL BID PRN PRN Reason: Sinus Symptoms Montelukast Sodium [Singulair] 10 mg PO HS Losartan Potassium 50 mg PO QAM Potassium Chloride 10 meq PO DAILY Furosemide [Lasix] 20 mg PO QAM Atorvastatin [Lipitor] 40 mg PO HS #90 tab Clopidogrel [Plavix] 75 mg PO DAILY Cholecalciferol [Vitamin D3 (25 Mcg = 1000 Iu)] 25 mcg PO DAILY Metoprolol Tartrate [Lopressor] 12.5 mg PO DAILY Discharge Medication List FLUoxetine HCL [PROzac] 20 mg PO QAM 08/05/14 [History] Levothyroxine Sodium [Synthroid] 50 mcg PO QAM 08/05/14 [History] Omeprazole [PriLOSEC] 40 mg PO HS 08/05/14 [History] Folic Acid 1 mg PO HS 02/12/18 [History] Fluticasone/Umeclidin/Vilanter [Trelegy Ellipta 100-62.5-25] 1 puff INHALATION RT-DAILY 11/18/19 [History] L.acidoph,Paracasei, B.lactis [Probiotic] 1 cap PO HS 03/01/20 [History] Ipratropium-Albuterol Nebulize [Duoneb 0.5 mg-3 mg/3 ml Soln] 3 ml INHALATION RT-QID PRN 04/05/20 [History] Montelukast Sodium [Singulair] 10 mg PO HS 04/05/20 [History] Oxymetazoline 0.05% Nasl Cory [Afrin 0.05% Nasal Cory] 3 spray NASAL BID PRN 04/05/20 [History] Losartan Potassium 50 mg PO QAM 06/11/20 [History] Furosemide [Lasix] 20 mg PO QAM 06/30/20 [History] Potassium Chloride 10 meq PO DAILY 06/30/20 [History] Atorvastatin [Lipitor] 40 mg PO HS #90 tab 08/01/20 [Rx] Rivaroxaban [Xarelto] 15 mg PO HS #0 08/01/20 [Rx] Metoprolol Tartrate [Lopressor] 12.5 mg PO DAILY 03/26/21 [History] Clopidogrel [Plavix] 75 mg PO DAILY 03/31/21 [History] Albuterol Inhaler [Ventolin Hfa Inhaler] 1 - 2 puff INHALATION RT-QID PRN 04/12/21 [History] Cholecalciferol [Vitamin D3 (25 Mcg = 1000 Iu)] 25 mcg PO DAILY 04/12/21 [History] Loratadine-Pseudoeph 5-120 mg [Claritin-D 12 Hour] 1 tab PO Q12HR PRN 04/12/21 [History] Azithromycin [Zithromax] 500 mg PO DAILY #3 tab 04/14/21 [Rx] Budesonide-Formot 160-4.5 Mcg [Symbicort 160-4.5 Mcg Inhaler] 2 puff INHALATION RT-BID #1 puff 04/14/21 [Rx] Fluconazole [Diflucan] 150 mg PO DAILY #7 tab 04/14/21 [Rx] Follow up Appointment(s)/Referral(s): Anthony Sheppard MD [STAFF PHYSICIAN] - 03/28/22 9:45 am Dexter Kong MD [STAFF PHYSICIAN] - 1 Week Roxie Melendez DO [Primary Care Provider] - 04/20/21 4:45 pm Patient Instructions/Handouts: Heart Failure (DC), Viral Pneumonia (DC), Shortness of Breath (DC), Acute Respiratory Failure (GEN) Discharge Disposition: HOME SELF-CARE
== END 2021-04-14 12:26 | disposition home or self-care (01) | DRG 191 ==
LOC: EC 07:15 → 3SCARD 09:47
PROVIDERS: ADMIT Hospitalist; ATTEND Hospitalist
DX: J44.0 Chronic obstructive pulmonary disease with (acute) lower respiratory infection (principal); I13.0 Hypertensive heart and chronic kidney disease with heart failure and stage 1 through stage 4 chronic kidney disease, or unspecified chronic kidney disease; I50.32 Chronic diastolic (congestive) heart failure; C34.90 Malignant neoplasm of unspecified part of unspecified bronchus or lung; K56.609 Unspecified intestinal obstruction, unspecified as to partial versus complete obstruction; J44.1 Chronic obstructive pulmonary disease with (acute) exacerbation; J98.09 Other diseases of bronchus, not elsewhere classified; J98.4 Other disorders of lung; K21.9 Gastro-esophageal reflux disease without esophagitis; K57.30 Diverticulosis of large intestine without perforation or abscess without bleeding; Z79.02 Long term (current) use of antithrombotics/antiplatelets; Z79.890 Hormone replacement therapy; Z79.899 Other long term (current) drug therapy; Z80.0 Family history of malignant neoplasm of digestive organs; Z80.1 Family history of malignant neoplasm of trachea, bronchus and lung; Z85.118 Personal history of other malignant neoplasm of bronchus and lung; Z85.46 Personal history of malignant neoplasm of prostate; Z85.828 Personal history of other malignant neoplasm of skin; Z87.01 Personal history of pneumonia (recurrent); Z87.891 Personal history of nicotine dependence; Z92.21 Personal history of antineoplastic chemotherapy; Z92.3 Personal history of irradiation; Z93.3 Colostomy status; Z95.2 Presence of prosthetic heart valve; Z95.5 Presence of coronary angioplasty implant and graft; Z79.01 Long term (current) use of anticoagulants; N18.9 Chronic kidney disease, unspecified; M19.91 Primary osteoarthritis, unspecified site; Z98.42 Cataract extraction status, left eye; I25.10 Atherosclerotic heart disease of native coronary artery without angina pectoris; I08.0 Rheumatic disorders of both mitral and aortic valves; I48.0 Paroxysmal atrial fibrillation; H91.90 Unspecified hearing loss, unspecified ear; G47.33 Obstructive sleep apnea (adult) (pediatric); E83.42 Hypomagnesemia; E78.5 Hyperlipidemia, unspecified; E03.9 Hypothyroidism, unspecified; M15.9 Polyosteoarthritis, unspecified; K57.90 Diverticulosis of intestine, part unspecified, without perforation or abscess without bleeding; M19.90 Unspecified osteoarthritis, unspecified site
CPT/HCPCS: 36415; 71046; 80053; 80061; 83605; 83735; 83880; 84145; 84484; 85025; 85610; 85730; 87040; 87635; 93005; 93306; 94640; 94760; 96374; 99285

== ENCOUNTER → 2021-04-22 | Outpatient (CLI) | payer MEDICARE ==
--- NOTE | 2021-04-22 11:40 | MR ---
EXAMINATION TYPE: MR brain wo/w con DATE OF EXAM: 04/22/2021 COMPARISON: Brain MRI 11/18/2019, 10/24/2019 HISTORY: Headache left sided, and lung cancer. TECHNIQUE: Multiplanar, multisequence images of the brain and brainstem is performed without and with IV contras t, utilizing 10 mL intravenous Gadavist . FINDINGS: Diffusion weighted images demonstrate no evidence of a recent infarct or other diffusion ab normality. There is no extra-axial fluid collection or significant interval change in white matter s ignal abnormality. The ventricular system and cisternal spaces are normal in size and appearance. T he brain volume is age appropriate, cortical atrophy is stable. Midline structures demonstrate normal morphology. The craniocervical junction appears within normal limits. Post contrast images demonstrate focus of enhancement in the right cerebellar hemisphere, hy pointense on inversion recovery T2-weighted sequences, the focus of enhancement on axial image #18 me asures approximately 5 to 6 mm in size. Along the cerebellum on the left at the superior margin, sagi ttal image 67 and axial image 31 there is an additional focus of enhancement measuring 1 cm in size, an interval change. The dural venous sinuses appear patent. The visualized sinuses are clear and the globes are intact. IMPRESSION: New enhancing lesions within the cerebellum suspicious for metastatic disease
== END | disposition home or self-care (01) ==
LOC: RADMRIMAIN 08:22
PROVIDERS: ATTEND Internal Medicine Hematology & Oncology
DX: C34.90 Malignant neoplasm of unspecified part of unspecified bronchus or lung (principal); G93.9 Disorder of brain, unspecified
CPT/HCPCS: 70553; A9585

== ENCOUNTER → 2021-05-07 | Outpatient (CLI) | payer MEDICARE ==
--- NOTE | 2021-05-10 07:10 | PE ---
EXAMINATION TYPE: PET CT fusion skull to thigh DATE OF EXAM: 05/07/2021 COMPARISON: Most recent CT January 19, 2021 and older studies HISTORY: Left-sided lung cancer progress study. Originally diagnosed 2015. History of prostate cance r treated 2013. TECHNIQUE: Following the intravenous administration of 10.17 mCi of F-18 FDG, whole body images are performed from the skull base to the midthigh. Images are reviewed on the computer in the coronal, a xial, and sagittal planes. Reconstructed rotating images are created on independent workstation and reviewed on the computer. A localization and attenuation correction CT is performed in conjunction with the PET scan. Blood glucose level equals 113. SCAN: Subsequent Scan FINDINGS: SKULL BASE AND NECK: No areas of new abnormal hypermetabolic uptake. CHEST, MEDIASTINUM, AND HILAR REGION: Stable medial right upper lung 2.5 x 1.7 cm hypermetabolic righ t lung nodule from multiple prior studies, max SUV is 4.43 current study versus 4.8 on prior study 20 16. Persistent tiny left pleural effusion. Persistent [id number] left basilar scarring. No new areas of abnormal hypermetabolic uptake. ABDOMEN AND PELVIS: No new areas of abnormal hypermetabolic uptake. OSSEOUS STRUCTURES: Persistent mild hypermetabolic uptake surrounding bilateral shoulder prosthesis p erhaps inflammatory change. No new areas of abnormal hypermetabolic uptake. OTHER CT: Metallic hardware from bilateral shoulder surgery is redemonstrated. Persistent cardiomegal y with metallic stent graft in the aortic root and severe three-vessel coronary artery calcification. Persistent bilateral subareolar gynecomastia. Tiny dependent gallstones redemonstrated. Some scattered colonic diverticula again seen. Moderate to severe calcified plaque in the ectatic abdominal aorta extends into branch vessels. Disc space narrow ing and vacuum disc phenomenon lumbosacral junction redemonstrated. There are 3 gold therapy seeds sc attered throughout the prostate gland. IMPRESSION: Stable medial right upper lung hypermetabolic nodule from 2016. No new areas of abnormal hypermetabolic uptake to suggest active neoplastic recurrence.
== END | disposition home or self-care (01) ==
LOC: RADPETMAIN 10:24
PROVIDERS: ATTEND Internal Medicine Hematology & Oncology
DX: C34.92 Malignant neoplasm of unspecified part of left bronchus or lung (principal); R91.1 Solitary pulmonary nodule; Z85.46 Personal history of malignant neoplasm of prostate
CPT/HCPCS: 78815; A9552

== ENCOUNTER 2021-08-06 11:44 | Inpatient (IN) | payer MEDICARE ==
[2021-08-06] MEDS ORDERED: SODIUM CHLORIDE 0.9% 500 ML 500 ML IV STA (12:13)
--- NOTE | 2021-08-06 12:14 | ED ---
General Adult HPI <Stefan Lopez - Last Filed: 08/06/21 14:16> - General Source: patient Mode of arrival: ambulatory Limitations: no limitations - History of Present Illness -: days(s) (2) Location: head, chest Severity scale (1-10): 0 Consistency: intermittent Improves with: none Worsens with: none Associated Symptoms: chest pain, headaches, shortness of breath, other (dizziness) Treatments Prior to Arrival: none <Jorge Kay - Last Filed: 08/06/21 15:34> - General Chief complaint: Arrhythmia/Palpitations Stated complaint: Covid+, chest pain, SOB Time Seen by Provider: 08/06/21 12:14 - History of Present Illness Initial comments: 81-year-old male patient, alert and oriented 4, presents to the emergency room with worsening shortness of breath with dizziness over the past 2 days. Patient states he tested positive for coronavirus on July 26. He did receive monoclonal antibodies infusion [address] [facility]. He states that he has had increasing shortness of breath cough and increased heart rate with dizziness over the past 2 days. He does have a history of atrial fibrillation and is on Xarelto, hypertension, COPD, asthma. He also has a history of TIA a couple of months ago. He was supposed to have a PET scan today for reevaluation of lung cancer which he has been in remission for several years. 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 Ortez (Jorge Kay) - Related Data Home Medications Medication Instructions Recorded Confirmed FLUoxetine HCL [PROzac] 20 mg PO DAILY 08/05/14 08/06/21 Levothyroxine Sodium [Synthroid] 50 mcg PO DAILY 08/05/14 08/06/21 Omeprazole [PriLOSEC] 40 mg PO HS 08/05/14 08/06/21 Folic Acid 1 mg PO DAILY 02/12/18 08/06/21 Fluticasone/Umeclidin/Vilanter 1 puff INHALATION RT-DAILY 11/18/19 08/06/21 [Trelegy Ellipta 100-62.5-25] L.acidoph,Paracasei, B.lactis 1 cap PO HS 03/01/20 08/06/21 [Probiotic] Montelukast Sodium [Singulair] 10 mg PO HS 04/05/20 08/06/21 Losartan Potassium 50 mg PO DAILY 06/11/20 08/06/21 Furosemide [Lasix] 20 mg PO DAILY 06/30/20 08/06/21 Metoprolol Tartrate [Lopressor] 12.5 mg PO BID 03/26/21 08/06/21 Cholecalciferol [Vitamin D3 (25 25 mcg PO DAILY 04/12/21 08/06/21 Mcg = 1000 Iu)] Aspirin EC [Ecotrin Low Dose] 162 mg PO HS 08/06/21 08/06/21 Potassium Gluconate [Potassium 99 mg PO HS 08/06/21 08/06/21 Gluconate ER] Rivaroxaban [Xarelto] 15 mg PO HS 08/06/21 08/06/21 amLODIPine [Norvasc] 7.5 mg PO HS 08/06/21 08/06/21 Allergies Allergy/AdvReac Type Severity Reaction Status Date / Time No Known Allergies Allergy Verified 08/06/21 12:47 Review of Systems ROS Other: All systems not noted in ROS Statement are negative. <Stefan Lopez - Last Filed: 08/06/21 14:16> ROS Other: All systems not noted in ROS Statement are negative. <Jorge Kay - Last Filed: 08/06/21 15:34> ROS Statement: Those systems with pertinent positive or pertinent negative responses have been documented in the HPI. Past Medical History Past Medical History: Atrial Fibrillation, Asthma, Coronary Artery Disease (CAD), Cancer, COPD, GERD/Reflux, Hearing Disorder / Deafness, Hyperlipidemia, Hypertension, Osteoarthritis (OA), Pneumonia, Respiratory Disorder, Sleep Apnea/CPAP/BIPAP, Thyroid Disorder Additional Past Medical History / Comment(s): Lung Cancer, cond stable, currently tx on hold, last chemo was in November/2019, diverticular disease, hx SBO w/ resection/colostomy/reversal, prostate cancer w/ radiation tx, skin cancer removed from face, hypothyroid. Hearing aids. Aortic stenosis History of Any Multi-Drug Resistant Organisms: None Reported Past Surgical History: Bowel Resection, Heart Catheterization, Heart Catheterization With Stent, Orthopedic Surgery, Tonsillectomy Additional Past Surgical History / Comment(s): 01/07/19 bronchoscopy w/ BAL, past bronchoscopies/bx, PCI with stent 2006, bilat reconstructive ear surgery/gland removed under jaw, bowel resection d/t rupture with colostomy later reversed, L cataract removal, demetra fundoloplasty, bilat total shoulders/knees, L knee arthroscopy x 2, EGD, colonoscopy, prostate bx, bilat exciscion gynecomastia, skin cancer removals. Heart cath, ALEA 07/06/20 Past Anesthesia/Blood Transfusion Reactions: No Reported Reaction, Motion Sickness Date of Last Stent Placement:: 2006 Past Psychological History: No Psychological Hx Reported Smoking Status: Former smoker Past Alcohol Use History: None Reported Past Drug Use History: None Reported - Past Family History Mother Family Medical History: Cancer Additional Family Medical History / Comment(s): MULTIPLE MEYLOMA Father Family Medical History: Cancer Additional Family Medical History / Comment(s): LUNG CANCER Sister(s) Family Medical History: Cancer Additional Family Medical History / Comment(s): sister had rectal cancer. Son(s) Family Medical History: Cancer Additional Family Medical History / Comment(s): Son has hodgkins lymphoma <Jorge Kay - Last Filed: 08/06/21 15:34> General Exam Limitations: no limitations General appearance: alert, in no apparent distress Head exam: Present: atraumatic, normocephalic, normal inspection Eye exam: Present: normal appearance, EOMI. Absent: scleral icterus, conjunctival injection, nystagmus, periorbital swelling, periorbital tenderness ENT exam: Present: normal exam, normal oropharynx, mucous membranes moist Neck exam: Present: normal inspection, full ROM. Absent: tenderness, meningismus, lymphadenopathy, thyromegaly Respiratory exam: Present: rales (bilaterally throughout). Absent: respiratory distress, wheezes, chest wall tenderness, accessory muscle use, decreased breath sounds Cardiovascular Exam: Present: tachycardia, irregular rhythm. Absent: JVD GI/Abdominal exam: Present: soft, normal bowel sounds. Absent: distended, tenderness, guarding, rebound, rigid Extremities exam: Present: normal inspection, full ROM, normal capillary refill. Absent: tenderness, pedal edema, joint swelling, calf tenderness Back exam: Present: normal inspection, full ROM. Absent: tenderness, CVA tenderness (R), CVA tenderness (L), rash noted Neurological exam: Present: alert, oriented X3, CN II-XII intact Psychiatric exam: Present: normal affect, normal mood Skin exam: Present: warm, dry, intact, normal color. Absent: rash, cyanosis, diaphoretic, petechiae, pallor <Jorge Kay - Last Filed: 08/06/21 15:34> Course - Reevaluation(s) Time: 14:08 <Jorge Kay - Last Filed: 08/06/21 15:34> Vital Signs 08/06/21 08/06/21 11:49 14:24 Temperature 97.5 F L Pulse Rate 151 H 97 Respiratory 18 20 Rate Blood Pressure 89/71 122/81 O2 Sat by Pulse 98 95 Oximetry - Reevaluation(s) Reevaluation #1: 08/06/21 14:08 Previous hospitalizations reviewed. Labs show a lactic acidosis, elevated troponin levels and a positive d-dimer. Patient's d-dimer is slightly elevated due to his positive coronavirus. His GFR is low will discuss VQ scan with admitting physician. Troponin is slightly elevated patient is currently on Xarelto. Case was discussed with Dr. Lopez. Patient is feeling better no longer complaining of dizziness rate is controlled with Cardizem drip in the 90's, blood pressure systolic 120s.. 08/06/21 14:17 08/06/21 14:31 08/06/21 14:32 (Jorge Kay) EKG Findings - Dysrhythmias: Supraventricular dysrhythmia: atrial fibrillation (Ventricular rate of 140, QRS 0.90, QTC 0.430) <Jorge Kay - Last Filed: 08/06/21 15:34> Medical Decision Making - Lab Data Result diagrams: 08/06/21 11:59 08/06/21 11:59 <Stefan Lopez - Last Filed: 08/06/21 14:16> - Lab Data Result diagrams: 08/06/21 11:59 08/06/21 11:59 <Jorge Kay - Last Filed: 08/06/21 15:34> - Medical Decision Making Patient reexamined and reevaluated by myself, Dr. Lopez. Patient resting comfor tably in bed. Heart rate between 93 and 97 on Cardizem drip. Lung sounds with mild rhonchi. Labs and chest x-ray reviewed. I agree with PA findings. This includes diagnostic interpretation and treatment plan. (Stefan Lopez) 81-year-old male patient, alert and oriented 4, presents to the emergency room with worsening shortness of breath with dizziness over the past 2 days. He has been covid positive since July 26. He did receive monoclonal antibody infusion [address] [facility]. He states that he has had increasing shortness of breath cough, increased heart rate with dizziness over the past 2 days. He does take Xarelto for afib. His heart rate upon arrival to the ER was 150 with a blood pressure 89/71. He was started on a Cardizem drip. His heart rate improved with a rate of 90 and his blood pressure was above 120 systolic. He no longer has the dizziness. He states that his shortness of breath has improved. Chest x-ray shows no evidence of acute pulmonary disease. There is no evidence of leukocytosis. His d-dimer is elevated at 1.30 which is likely related to the coronavirus. VQ scan was ordered as requested by Dr. Mina. Lactic acid is 4.9 patient was given IV fluids. Troponin elevated at 0.096. Consults to pulmonology and cardiology were placed. (Jorge Kay) - Lab Data Lab Results 08/06/21 08/06/21 08/06/21 Range/Units 11:59 11:59 11:59 WBC 10.6 (3.8-10.6) k/uL RBC 5.34 (4.30-5.90) m/uL Hgb 16.2 (13.0-17.5) gm/dL Hct 48.7 (39.0-53.0) % MCV 91.1 (80.0-100.0) fL MCH 30.2 (25.0-35.0) pg MCHC 33.2 (31.0-37.0) g/dL RDW 15.6 H (11.5-15.5) % Plt Count 208 (150-450) k/uL MPV 8.0 Neutrophils % 69 % Lymphocytes % 21 % Monocytes % 5 % Eosinophils % 2 % Basophils % 1 % Neutrophils # 7.3 (1.3-7.7) k/uL Lymphocytes # 2.2 (1.0-4.8) k/uL Monocytes # 0.5 (0-1.0) k/uL Eosinophils # 0.2 (0-0.7) k/uL Basophils # 0.1 (0-0.2) k/uL PT 10.7 (9.0-12.0) sec INR 1.0 (<1.2) APTT 23.2 (22.0-30.0) sec D-Dimer 1.30 H (<0.60) mg/L FEU Sodium 136 L (137-145) mmol/L Potassium 4.2 (3.5-5.1) mmol/L Chloride 100 (98-107) mmol/L Carbon Dioxide 22 (22-30) mmol/L Anion Gap 14 mmol/L BUN 26 H (9-20) mg/dL Creatinine 1.47 H (0.66-1.25) mg/dL Est GFR (CKD-EPI)AfAm 50 (>60 ml/min/1.73 sqM) Est GFR (CKD-EPI)NonAf 44 (>60 ml/min/1.73 sqM) Glucose 100 H (74-99) mg/dL Plasma Lactic Acid Vel (0.7-2.0) mmol/L Calcium 10.0 (8.4-10.2) mg/dL Magnesium 1.6 (1.6-2.3) mg/dL Total Bilirubin 0.5 (0.2-1.3) mg/dL AST 17 (17-59) U/L ALT 16 (4-49) U/L Alkaline Phosphatase 121 (38-126) U/L Troponin I (0.000-0.034) ng/mL NT-Pro-B Natriuret Pep pg/mL Total Protein 6.6 (6.3-8.2) g/dL Albumin 3.8 (3.5-5.0) g/dL Urine Color Urine Appearance (Clear) Urine pH (5.0-8.0) Ur Specific [place] (1.001-1.035) Urine Protein (Negative) Urine Glucose (UA) (Negative) Urine Ketones (Negative) Urine Blood (Negative) Urine Nitrite (Negative) Urine Bilirubin (Negative) Urine Urobilinogen (<2.0) mg/dL Ur Leukocyte Esterase (Negative) 08/06/21 08/06/21 08/06/21 Range/Units 11:59 11:59 11:59 WBC (3.8-10.6) k/uL RBC (4.30-5.90) m/uL Hgb (13.0-17.5) gm/dL Hct (39.0-53.0) % MCV (80.0-100.0) fL MCH (25.0-35.0) pg MCHC (31.0-37.0) g/dL RDW (11.5-15.5) % Plt Count (150-450) k/uL MPV Neutrophils % % Lymphocytes % % Monocytes % % Eosinophils % % Basophils % % Neutrophils # (1.3-7.7) k/uL Lymphocytes # (1.0-4.8) k/uL Monocytes # (0-1.0) k/uL Eosinophils # (0-0.7) k/uL Basophils # (0-0.2) k/uL PT (9.0-12.0) sec INR (<1.2) APTT (22.0-30.0) sec D-Dimer (<0.60) mg/L FEU Sodium (137-145) mmol/L Potassium (3.5-5.1) mmol/L Chloride (98-107) mmol/L Carbon Dioxide (22-30) mmol/L Anion Gap mmol/L BUN (9-20) mg/dL Creatinine (0.66-1.25) mg/dL Est GFR (CKD-EPI)AfAm (>60 ml/min/1.73 sqM) Est GFR (CKD-EPI)NonAf (>60 ml/min/1.73 sqM) Glucose (74-99) mg/dL Plasma Lactic Acid Vel 4.9 H* (0.7-2.0) mmol/L Calcium (8.4-10.2) mg/dL Magnesium (1.6-2.3) mg/dL Total Bilirubin (0.2-1.3) mg/dL AST (17-59) U/L ALT (4-49) U/L Alkaline Phosphatase (38-126) U/L Troponin I 0.096 H* (0.000-0.034) ng/mL NT-Pro-B Natriuret Pep 5850 pg/mL Total Protein (6.3-8.2) g/dL Albumin (3.5-5.0) g/dL Urine Color Urine Appearance (Clear) Urine pH (5.0-8.0) Ur Specific [place] (1.001-1.035) Urine Protein (Negative) Urine Glucose (UA) (Negative) Urine Ketones (Negative) Urine Blood (Negative) Urine Nitrite (Negative) Urine Bilirubin (Negative) Urine Urobilinogen (<2.0) mg/dL Ur Leukocyte Esterase (Negative) 08/06/21 Range/Units 13:58 WBC (3.8-10.6) k/uL RBC (4.30-5.90) m/uL Hgb (13.0-17.5) gm/dL Hct (39.0-53.0) % MCV (80.0-100.0) fL MCH (25.0-35.0) pg MCHC (31.0-37.0) g/dL RDW (11.5-15.5) % Plt Count (150-450) k/uL MPV Neutrophils % % Lymphocytes % % Monocytes % % Eosinophils % % Basophils % % Neutrophils # (1.3-7.7) k/uL Lymphocytes # (1.0-4.8) k/uL Monocytes # (0-1.0) k/uL Eosinophils # (0-0.7) k/uL Basophils # (0-0.2) k/uL PT (9.0-12.0) sec INR (<1.2) APTT (22.0-30.0) sec D-Dimer (<0.60) mg/L FEU Sodium (137-145) mmol/L Potassium (3.5-5.1) mmol/L Chloride (98-107) mmol/L Carbon Dioxide (22-30) mmol/L Anion Gap mmol/L BUN (9-20) mg/dL Creatinine (0.66-1.25) mg/dL Est GFR (CKD-EPI)AfAm (>60 ml/min/1.73 sqM) Est GFR (CKD-EPI)NonAf (>60 ml/min/1.73 sqM) Glucose (74-99) mg/dL Plasma Lactic Acid Vel (0.7-2.0) mmol/L Calcium (8.4-10.2) mg/dL Magnesium (1.6-2.3) mg/dL Total Bilirubin (0.2-1.3) mg/dL AST (17-59) U/L ALT (4-49) U/L Alkaline Phosphatase (38-126) U/L Troponin I (0.000-0.034) ng/mL NT-Pro-B Natriuret Pep pg/mL Total Protein (6.3-8.2) g/dL Albumin (3.5-5.0) g/dL Urine Color Light Yellow Urine Appearance Clear (Clear) Urine pH 6.0 (5.0-8.0) Ur Specific [place] 1.009 (1.001-1.035) Urine Protein Negative (Negative) Urine Glucose (UA) Negative (Negative) Urine Ketones Negative (Negative) Urine Blood Negative (Negative) Urine Nitrite Negative (Negative) Urine Bilirubin Negative (Negative) Urine Urobilinogen <2.0 (<2.0) mg/dL Ur Leukocyte Esterase Negative (Negative) Critical Care Time Critical Care Time: Yes Total Critical Care Time: 32 <Jorge Kay - Last Filed: 08/06/21 15:34> Disposition <Stefan Lopez - Last Filed: 08/06/21 14:16> Decision Date: 08/06/21 Decision Time: 14:30 <Jorge Kay - Last Filed: 08/06/21 15:34> Clinical Impression: Atrial fibrillation with RVR, COVID-19, Elevated d-dimer, Elevated troponin, Dyspnea Disposition: ADMITTED IP TO THIS HOSP Condition: Fair Referrals: Roxie Melendez DO [Primary Care Provider] - 1-2 days
[2021-08-06] MEDS ORDERED: DILTIAZEM 5 MG/ML 5 ML VIAL IVP STA (12:22)
--- NOTE | 2021-08-06 12:37 | XR ---
EXAMINATION TYPE: XR chest 2V DATE OF EXAM: 08/06/2021 COMPARISON: 04/12/2021 HISTORY: Shortness of breath TECHNIQUE: Frontal and lateral views of the chest are obtained. FINDINGS: Scattered senescent parenchymal changes noted. Hyperinflation compatible with COPD. No evidence for infiltrate. No evidence for atelectasis. Heart size is stable. Mediastinal structures are stable and grossly unremarkable. No evidence for hilar prominence. Degenerative changes dorsal spine. IMPRESSION: 1. No evidence for acute pulmonary disease.
[2021-08-06 12:59] LABS: Albumin 3.8 g/dL (3.5-5.0); Magnesium 1.6 mg/dL (1.6-2.3); Potassium 4.2 mmol/L (3.5-5.1); Total Bilirubin 0.5 mg/dL (0.2-1.3); Total Protein 6.6 g/dL (6.3-8.2)
[2021-08-06] MEDS ORDERED: DILTIAZEM 125 MG in SODIUM CHLORIDE 0.9% 100 ML IV SCH (13:00)
[2021-08-06 13:04] LABS: Partial Thromboplastin Time 23.2 sec (22.0-30.0); Prothrombin Time 10.7 sec (9.0-12.0)
[2021-08-06 13:19] LABS: Basophils # (A) 0.1 k/uL (0-0.2); Basophils % (A) 1 %; Eosinophils # (A) 0.2 k/uL (0-0.7); Eosinophils % (A) 2 %; HCT 48.7 % (39.0-53.0); HGB 16.2 gm/dL (13.0-17.5); Lymphocytes # (A) 2.2 k/uL (1.0-4.8); Lymphocytes % (A) 21 %; MCH 30.2 pg (25.0-35.0); MCHC 33.2 g/dL (31.0-37.0); MCV 91.1 fL (80.0-100.0); Monocytes # (A) 0.5 k/uL (0-1.0); Monocytes % (A) 5 %; Neutrophils # (A) 7.3 k/uL (1.3-7.7); Neutrophils % (A) 69 %; Platelet Count 208 k/uL (150-450); RBC 5.34 m/uL (4.30-5.90); RDW 15.6 % (11.5-15.5); WBC 10.6 k/uL (3.8-10.6)
[2021-08-06] MEDS ORDERED: ACETAMINOPHEN TAB 325 MG TAB PO STA (14:00)
[2021-08-06] MEDS ORDERED: ACETAMINOPHEN TAB 325 MG TAB PO PRN (14:26)
[2021-08-06] MEDS ORDERED: NALOXONE 0.4 MG/ML 1 ML VIAL IV PRN (14:26)
[2021-08-06 14:27] LABS: Appearance,Urine Clear (Clear); Bilirubin,Urine Negative (Negative); Blood,Urine Negative (Negative); Color,Urine Light Yellow; Glucose,Urine (UA) Negative (Negative); Ketones,Urine Negative (Negative); Leukocyte Esterase,Urine Negative (Negative); Nitrite,Urine Negative (Negative); Protein,Urine Negative (Negative); Specific Gravity,Urine 1.009 (1.001-1.035); Urobilinogen,Urine <2.0 mg/dL (<2.0)
[2021-08-06] MEDS: SODIUM CHLORIDE 0.9% 1,000 ML IV SCH ×2 (14:30→21:15)
--- NOTE | 2021-08-06 17:06 | NM ---
EXAMINATION TYPE: NM pul perfusion DATE OF EXAM: 08/06/2021 COMPARISON: NONE HISTORY: 12/27/2018 Following administration of 4.6 mCi Tc 99m MAA. Images obtained post injection. FINDINGS: There are 6 small subsegmental perfusion defects in the periphery of both lungs. There is no segmenta l type defect. Chest x-ray today shows some pulmonary congestion and small pleural effusions. IMPRESSION: There is a low probability of pulmonary embolism. No adverse change compared to old exam.
[2021-08-06] MEDS ORDERED: ONDANSETRON 4 MG/2 ML VIAL IVP PRN (18:12)
[2021-08-06] MEDS ORDERED: MELATONIN 3 MG TABLET PO PRN (18:12)
[2021-08-06] MEDS ORDERED: LACTULOSE 20 GM/30 ML CUP PO PRN (18:12)
[2021-08-06] MEDS ORDERED: LORazepam 0.5 MG TAB PO PRN (18:12)
[2021-08-06] MEDS ORDERED: CALCIUM CARBONATE 500 MG CHEWABLE PO PRN (18:12)
--- NOTE | 2021-08-06 18:21 | P.HPIM ---
History of Present Illness H&P Date: 08/06/21 Chief Complaint: Short of breath History present complaint: This is a pleasant 81-year-old patient of Dr. Roxie Melendez. Chronic stable medical conditions include coronary artery disease, CHF with EF of 50-65%, moderate aortic stenosis with sclerosis, COPD, GERD, hyperlipidemia, hypertension, primary osteoarthritis,(s) sleep apnea, hypothyroid. 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 treated with chemotherapy -being followed with Dr. Rutherford. last chemotherapy in October 2019 History of Grabiel fundoplication, has had small bowel obstruction with resection colostomy and reversal of the same. prostate cancer treated with radiation.. Bronchoscopy in March 2021 negative for malignant cells. Patient has received both his COVID vaccine and received a booster shot 2 weeks ago. On July 26 patient was diagnosed with COVID 19. One week later he did Monoclonal antibodies. Patient been having increasing shortness of breath. Congested. A lot of cough. No sputum. Poor appetite. At some diarrhea 2. D jann. Tired rundown. Presented to the ER. Found to be in atrial fibrillation with a rapid ventricular rate. Started on IV Cardizem drip. Review of systems: GEN.: tired, decreased appetite EYES: None HEENT: None NECK: None RESPIRATORY: As above CARDIOVASCULAR: As above GASTROINTESTINAL: As above GENITOURINARY: None MUSCULOSKELETAL: Some joint pains LYMPHATICS: None HEMATOLOGICAL: None PSYCHIATRY: None NEUROLOGICAL: None Past medical history: Include Coronary artery disease with stent , stage IV adenocarcinoma of the lung on chemotherapy-last time in October 2019, history of Grabiel fundoplication, COPD in an ex-smoker, hypothyroidism, essential hypertension, hyperlipidemia, obstructive sleep apnea, CHF with diastolic dysfunction, moderate aortic stenosis with sclerosis. January 2020 - GI bleed. EGD was unremarkable. Bronchomalacia Social history: . Smoked from age of 14 through 1982 . alcohol occasionally. Retired. Family history: sister had rectal cancer Physical examination: VITAL SIGNS: 97.5, 151, 18, 89/71, 98% room air upon presentation GENERAL: BMI 28.5, reclining in bed, tired, EYES: Pupils equal. Conjunctiva normal. HEENT: External appearance of nose and ears normal, oral cavity normal. NECK: JVD not raised; masses not palpable. HEART: First and second heart sounds are normal; no edema. LUNGS: Respiratory rate increased, decreased breath sounds. Coarse crackles. Some wheezing. ABDOMEN: Soft, distended, , liver spleen not palpable, no masses palpable. PSYCH: Alert and oriented x3; mood and affect anxious NEUROLOGICAL: Cranial nerves grossly intact; no facial asymmetry, power and sensation grossly intact. LYMPHATICS: No lymph nodes palpable in the axilla and neck INVESTIGATIONS, reviewed in the clinical context: White count 10.6 hemoglobin 16.2 platelets 208 d-dimer 1.3 sodium 136 potassium 4.2 BUN 26 creatinine 1.47 EKG tracing: Personally reviewed by me: Atrial fibrillation with a rate of 140 Chest x-ray film personally reviewed by me-scattered infiltrates VQ scan: Low property PE Assessment and plan: -Paroxysmal atrial fibrillation, now presented with atrial fibrillation uncontrolled IV Cardizem drip. Lopressor 12.5 by mouth twice a day. Xarelto 50 mg daily at bedtime -COVID 19 pneumonitis. Patient received his initial COVID vaccine and the booster dose 2 weeks ago. Patient's pulse oxing well. Follow clinically -Acute COPD exacerbation in an ex smoker. Symbicort 80/4.52 puffs twice a day. Bronchodilator. IV Solu-Medrol. -Possible pneumonia IV ceftriaxone. Check pro-calcitonin. -Chronic tracheal bronchomalacia -Colonic diverticulosis, asymptomatic - Grabiel fundoplication, -Coronary artery disease with a prior history of stent Aspirin, Lopressor, -Stage IV adenocarcinoma of the lung received chemotherapy. Patient is due for his PET scan. -Hypothyroidism Synthroid 50 g daily -Essential hypertension Cozaar 50 mg daily, Lopressor 12.5 twice a day -Obstructive sleep apnea -Chronic congestive heart failure from diastolic dysfunction EF 50-60%. No acute exacerbation. Follow clinically -Moderate aortic stenosis with sclerosis nonrheumatic Follow clinically -Primary osteoarthritis multiple joints Use. Medications as needed -Chronic kidney disease. 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 Follow clinically IV ceftriaxone. IV Cardizem drip. IV Solu-Medrol. Resume home medications. Check procalcitonin. Consultation to pulmonary and oncology. PET scan will have to be rescheduled. Discussed with patient. Given the complexity and severity of patient's condition expect the patient to be in the hospital at least for 2 overnights Past Medical History Past Medical History: Atrial Fibrillation, Asthma, Coronary Artery Disease (C AD), Cancer, COPD, GERD/Reflux, Hearing Disorder / Deafness, Hyperlipidemia, Hypertension, Osteoarthritis (OA), Pneumonia, Respiratory Disorder, Sleep Apnea/CPAP/BIPAP, Thyroid Disorder Additional Past Medical History / Comment(s): Lung Cancer, cond stable, currently tx on hold, last chemo was in November/2019, diverticular disease, hx SBO w/ resection/colostomy/reversal, prostate cancer w/ radiation tx, skin cancer removed from face, hypothyroid. Hearing aids. Aortic stenosis History of Any Multi-Drug Resistant Organisms: None Reported Past Surgical History: Bowel Resection, Heart Catheterization, Heart Catheterization With Stent, Orthopedic Surgery, Tonsillectomy Additional Past Surgical History / Comment(s): 01/07/19 bronchoscopy w/ BAL, past bronchoscopies/bx, PCI with stent 2006, bilat reconstructive ear surgery/gland removed under jaw, bowel resection d/t rupture with colostomy later reversed, L cataract removal, grabiel fundoloplasty, bilat total shoulders/knees, L knee arthroscopy x 2, EGD, colonoscopy, prostate bx, bilat exciscion gynecomastia, skin cancer removals. Heart cath, ALEA 07/06/20 Past Anesthesia/Blood Transfusion Reactions: No Reported Reaction, Motion Sickness Date of Last Stent Placement:: 2006 Past Psychological History: No Psychological Hx Reported Smoking Status: Former smoker Past Alcohol Use History: None Reported Past Drug Use History: None Reported - Past Family History Mother Family Medical History: Cancer Additional Family Medical History / Comment(s): MULTIPLE MEYLOMA Father Family Medical History: Cancer Additional Family Medical History / Comment(s): LUNG CANCER Sister(s) Family Medical History: Cancer Additional Family Medical History / Comment(s): sister had rectal cancer. Son(s) Family Medical History: Cancer Additional Family Medical History / Comment(s): Son has hodgkins lymphoma Medications and Allergies Home Medications Medication Instructions Recorded Confirmed Type FLUoxetine HCL [PROzac] 20 mg PO DAILY 08/05/14 08/06/21 History Levothyroxine Sodium [Synthroid] 50 mcg PO DAILY 08/05/14 08/06/21 History Omeprazole [PriLOSEC] 40 mg PO HS 08/05/14 08/06/21 History Folic Acid 1 mg PO DAILY 02/12/18 08/06/21 History Fluticasone/Umeclidin/Vilanter 1 puff INHALATION RT-DAILY 11/18/19 08/06/21 History [Trelegy Ellipta 100-62.5-25] L.acidoph,Paracasei, B.lactis 1 cap PO HS 03/01/20 08/06/21 History [Probiotic] Montelukast Sodium [Singulair] 10 mg PO HS 04/05/20 08/06/21 History Losartan Potassium 50 mg PO DAILY 06/11/20 08/06/21 History Furosemide [Lasix] 20 mg PO DAILY 06/30/20 08/06/21 History Metoprolol Tartrate [Lopressor] 12.5 mg PO BID 03/26/21 08/06/21 History Cholecalciferol [Vitamin D3 (25 25 mcg PO DAILY 04/12/21 08/06/21 History Mcg = 1000 Iu)] Aspirin EC [Ecotrin Low Dose] 162 mg PO HS 08/06/21 08/06/21 History Potassium Gluconate [Potassium 99 mg PO HS 08/06/21 08/06/21 History Gluconate ER] Rivaroxaban [Xarelto] 15 mg PO HS 08/06/21 08/06/21 History amLODIPine [Norvasc] 7.5 mg PO HS 08/06/21 08/06/21 History Allergies Allergy/AdvReac Type Severity Reaction Status Date / Time No Known Allergies Allergy Verified 08/06/21 12:47 Physical Exam Vitals: Vital Signs Temp Pulse Resp BP Pulse Ox 08/06/21 15:32 83 20 135/91 95 08/06/21 14:24 97 20 122/81 95 08/06/21 11:49 97.5 F L 151 H 18 89/71 98 Intake and Output 08/06/21 08/06/21 08/06/21 06:59 14:59 22:59 Other: Weight 95.254 kg Results CBC & Chem 7: 08/06/21 11:59 08/06/21 11:59 Labs: Abnormal Lab Results - Last 24 Hours (Table) 08/06/21 08/06/21 08/06/21 Range/Units 11:59 11:59 11:59 RDW 15.6 H (11.5-15.5) % D-Dimer 1.30 H (<0.60) mg/L FEU Sodium 136 L (137-145) mmol/L BUN 26 H (9-20) mg/dL Creatinine 1.47 H (0.66-1.25) mg/dL Glucose 100 H (74-99) mg/dL Plasma Lactic Acid Vel (0.7-2.0) mmol/L Troponin I (0.000-0.034) ng/mL 08/06/21 08/06/21 Range/Units 11:59 11:59 RDW (11.5-15.5) % D-Dimer (<0.60) mg/L FEU Sodium (137-145) mmol/L BUN (9-20) mg/dL Creatinine (0.66-1.25) mg/dL Glucose (74-99) mg/dL Plasma Lactic Acid Vel 4.9 H* (0.7-2.0) mmol/L Troponin I 0.096 H* (0.000-0.034) ng/mL
[2021-08-06] MEDS: SYMBICORT 80-4.5 MCG INHALER INHALATION SCH (20:27)
[2021-08-06] MEDS: ALBUTEROL HFA INHALER INHALATION SCH (20:27)
[2021-08-06] MEDS ORDERED: METOPROLOL TARTRATE 12.5 MG TAB PO SCH (21:00)
[2021-08-06] MEDS: methylPREDNISolone SOD SUCCI 40 MG/ML 1 ML VIAL IV SCH ×2 (21:13→23:28)
[2021-08-06] MEDS: guaiFENesin 600 MG TABLET.ER PO SCH ×2 (21:13→23:28)
[2021-08-06] MEDS: amLODIPine 5 MG TAB PO SCH (21:14)
[2021-08-06] MEDS: ASPIRIN 81 MG PO SCH (21:14)
[2021-08-06] MEDS: LACTOBACILLUS ACIDOPH & BULGAR 1 EACH PACKET PO SCH (21:14)
[2021-08-06] MEDS: PANTOPRAZOLE 40 MG TABLET PO SCH (21:15)
[2021-08-06] MEDS: POTASSIUM CHLORIDE ER 10 MEQ TAB.ER.PRT PO SCH (21:15)
[2021-08-06] MEDS: MONTELUKAST 10 MG TAB PO SCH (21:15)
[2021-08-06] MEDS: RIVAROXABAN 15 MG TAB PO SCH (21:15)
[2021-08-07] MEDS: ALBUTEROL HFA INHALER INHALATION SCH ×6 (04:11→20:24)
[2021-08-07] MEDS: LEVOTHYROXINE 50 MCG TAB PO SCH (06:41)
[2021-08-07] MEDS: SYMBICORT 80-4.5 MCG INHALER INHALATION SCH ×2 (08:12→20:24)
[2021-08-07] MEDS: TIOTROPIUM 2.5 MCG INHALER INHALATION SCH (08:13)
--- NOTE | 2021-08-07 08:31 | P.CRDCN ---
History of Present Illness Consult date: 08/07/21 Chief complaint: Shortness of breath History of present illness: The patient is an 81-year-old gentleman with a past medical history significant for coronary artery disease and prior revascularization where he underwent stenting of the RCA as well as a stenting of the diagonal branch as well as valvular heart disease and known to have transcutaneous aortic valve replacement and also hypertension and dyslipidemia and paroxysmal atrial fibrillation. We asked to see the patient in a consult regarding atrial fibrillation with RVR. The patient does state that he was tested positive for COVID-19 infection recently and he received monoclonal antibody. This time and for the last few days he has been more short of breath with exertion and he has been experiencing dizziness or lightheadedness. No presyncope or syncope. No symptoms of chest pain or chest discomfort. No feeling of heart racing or fluttering. The patient was brought to the emergency department by ambulance. In the ER an EKG was performed and showed A. fib with RVR. He also was tested again positive for COVID-19 infection. Currently the patient is on isolation. The chest x-ray did not show any acute abnormalities. VQ scan was performed and came in to be unremarkable for PE. Please note that the patient was receiving oral anticoagulation for the atrial fibrillation as an outpatient. 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 He received according to home radiation to the brain but the details on that R and a follicle at this point. The most recent echo from March 2021 revealed normal left ventricular systolic function with normally functioning transcatheter aortic valve. Currently the patient's is hypoxic and he is satting in the lower 90s on 4 L nasal cannula Past Medical History Past Medical History: Atrial Fibrillation, Asthma, Coronary Artery Disease (C AD), Cancer, COPD, GERD/Reflux, Hearing Disorder / Deafness, Hyperlipidemia, Hypertension, Osteoarthritis (OA), Pneumonia, Respiratory Disorder, Sleep Apnea/CPAP/BIPAP, Thyroid Disorder Additional Past Medical History / Comment(s): Lung Cancer, cond stable, currently tx on hold, last chemo was in November/2019, diverticular disease, hx SBO w/ resection/colostomy/reversal, prostate cancer w/ radiation tx, skin cancer removed from face, hypothyroid. Hearing aids. Aortic stenosis History of Any Multi-Drug Resistant Organisms: None Reported Past Surgical History: Bowel Resection, Heart Catheterization, Heart Catheterization With Stent, Orthopedic Surgery, Tonsillectomy Additional Past Surgical History / Comment(s): 01/07/19 bronchoscopy w/ BAL, past bronchoscopies/bx, PCI with stent 2006, bilat reconstructive ear surgery/gland removed under jaw, bowel resection d/t rupture with colostomy later reversed, L cataract removal, demetra fundoloplasty, bilat total shoulders/knees, L knee arthroscopy x 2, EGD, colonoscopy, prostate bx, bilat exciscion gynecomastia, skin cancer removals. Heart cath, [facility] 07/06/20 Past Anesthesia/Blood Transfusion Reactions: No Reported Reaction, Motion Sickness Date of Last Stent Placement:: 2006 Past Psychological History: No Psychological Hx Reported Additional Psychological History / Comment(s): Pt resides with his spouse. He has a nebulizer. He drives. Smoking Status: Former smoker Past Alcohol Use History: None Reported Additional Past Alcohol Use History / Comment(s): SMOKED OCCASIONAL CIGAR. STARTED SMOKING AT AGE 14, SMOKED TILL 1982 Past Drug Use History: None Reported - Past Family History Mother Family Medical History: Cancer Additional Family Medical History / Comment(s): MULTIPLE MEYLOMA Father Family Medical History: Cancer Additional Family Medical History / Comment(s): LUNG CANCER Sister(s) Family Medical History: Cancer Additional Family Medical History / Comment(s): sister had rectal cancer. Son(s) Family Medical History: Cancer Additional Family Medical History / Comment(s): Son has hodgkins lymphoma Medications and Allergies Home Medications Medication Instructions Recorded Confirmed Type FLUoxetine HCL [PROzac] 20 mg PO DAILY 08/05/14 08/06/21 History Levothyroxine Sodium [Synthroid] 50 mcg PO DAILY 08/05/14 08/06/21 History Omeprazole [PriLOSEC] 40 mg PO HS 08/05/14 08/06/21 History Folic Acid 1 mg PO DAILY 02/12/18 08/06/21 History Fluticasone/Umeclidin/Vilanter 1 puff INHALATION RT-DAILY 11/18/19 08/06/21 Hi story [Trelegy Ellipta 100-62.5-25] L.acidoph,Paracasei, B.lactis 1 cap PO HS 03/01/20 08/06/21 History [Probiotic] Montelukast Sodium [Singulair] 10 mg PO HS 04/05/20 08/06/21 History Losartan Potassium 50 mg PO DAILY 06/11/20 08/06/21 History Furosemide [Lasix] 20 mg PO DAILY 06/30/20 08/06/21 History Metoprolol Tartrate [Lopressor] 12.5 mg PO BID 03/26/21 08/06/21 History Cholecalciferol [Vitamin D3 (25 25 mcg PO DAILY 04/12/21 08/06/21 History Mcg = 1000 Iu)] Aspirin EC [Ecotrin Low Dose] 162 mg PO HS 08/06/21 08/06/21 History Potassium Gluconate [Potassium 99 mg PO HS 08/06/21 08/06/21 History Gluconate ER] Rivaroxaban [Xarelto] 15 mg PO HS 08/06/21 08/06/21 History amLODIPine [Norvasc] 7.5 mg PO HS 08/06/21 08/06/21 History Allergies Allergy/AdvReac Type Severity Reaction Status Date / Time No Known Allergies Allergy Verified 08/06/21 12:47 Physical Exam Vitals: Vital Signs Temp Pulse Pulse Resp BP BP Pulse Ox 08/07/21 04:00 97.6 F 74 20 146/80 96 08/07/21 00:00 97.7 F 73 18 123/84 97 08/06/21 21:20 97.8 F 74 18 142/82 96 08/06/21 20:00 97.8 F 74 18 142/82 96 08/06/21 18:12 92 20 128/98 95 08/06/21 15:32 83 20 135/91 95 08/06/21 14:24 97 20 122/81 95 08/06/21 11:49 97.5 F L 151 H 18 89/71 98 Intake and Output 08/06/21 08/07/21 08/07/21 22:59 06:59 14:59 Output Total 750 Balance -750 Output: Urine 750 Other: # Voids 2 Weight 95.254 kg 98 kg - Constitutional General appearance: no acute distress Results 08/06/21 11:59 08/06/21 11:59 Cardiac Enzymes 08/06/21 08/06/21 Range/Units 11:59 11:59 AST 17 (17-59) U/L Troponin I 0.096 H* (0.000-0.034) ng/mL Coagulation 08/06/21 Range/Units 11:59 PT 10.7 (9.0-12.0) sec APTT 23.2 (22.0-30.0) sec CBC 08/06/21 Range/Units 11:59 WBC 10.6 (3.8-10.6) k/uL RBC 5.34 (4.30-5.90) m/uL Hgb 16.2 (13.0-17.5) gm/dL Hct 48.7 (39.0-53.0) % Plt Count 208 (150-450) k/uL Comprehensive Metabolic Panel 08/06/21 Range/Units 11:59 Sodium 136 L (137-145) mmol/L Potassium 4.2 (3.5-5.1) mmol/L Chloride 100 (98-107) mmol/L Carbon Dioxide 22 (22-30) mmol/L BUN 26 H (9-20) mg/dL Creatinine 1.47 H (0.66-1.25) mg/dL Glucose 100 H (74-99) mg/dL Calcium 10.0 (8.4-10.2) mg/dL AST 17 (17-59) U/L ALT 16 (4-49) U/L Alkaline Phosphatase 121 (38-126) U/L Total Protein 6.6 (6.3-8.2) g/dL Albumin 3.8 (3.5-5.0) g/dL Current Medications Generic Name Dose Route Start Last Admin Trade Name Freq PRN Reason Stop Dose Admin Acetaminophen 650 mg 08/06/21 14:26 Acetaminophen Tab 325 Mg Tab PO Q6HR PRN Mild Pain or Fever > 100.5 Albuterol Sulfate 4 puff 08/06/21 20:00 08/07/21 08:09 Albuterol Hfa Inhaler INHALATION 4 puff RT-Q4H JUSTEN Administration Amlodipine Besylate 7.5 mg 08/06/21 21:00 08/06/21 21:14 Amlodipine 5 Mg Tab PO 7.5 mg HS JUSTEN Administration Aspirin 162 mg 08/06/21 21:00 08/06/21 21:14 Aspirin 81 Mg PO 162 mg HS JUSTEN Administration Budesonide/Formoterol Fumarate 2 puff 08/06/21 20:00 08/07/21 08:12 Symbicort 80-4.5 Mcg Inhaler INHALATION 2 puff RT-BID JUSTEN Administration Calcium Carbonate/Glycine 1,000 mg 08/06/21 18:12 Calcium Carbonate 500 Mg Chewable PO Q4HR PRN Dyspepsia Cholecalciferol 25 mcg 08/07/21 09:00 Cholecalciferol 25 Mcg (1000 Iu) Tablet PO DAILY JUSTEN Fluoxetine HCl 20 mg 08/07/21 09:00 Fluoxetine Hcl 20 Mg Cap PO DAILY JUSTEN Folic Acid 1 mg 08/07/21 09:00 Folic Acid 1 Mg Tab PO DAILY JUSTEN Furosemide 20 mg 08/07/21 09:00 Furosemide 20 Mg Tab PO DAILY [facility] Guaifenesin 600 mg 08/06/21 18:30 08/06/21 23:28 Guaifenesin 600 Mg Tablet.Er PO Not Given QID JUSTEN Diltiazem HCl 125 mg/ Sodium 125 mls @ 5 mls/hr 08/06/21 13:00 08/06/21 13:05 Chloride IV 5 mg/hr .Q24H JUSTEN 5 mls/hr Administration 5 MG/HR Sodium Chloride 1,000 mls @ 130 mls/hr 08/06/21 14:00 08/06/21 21:15 Saline 0.9% IV 130 mls/hr .Q7H42M JUSTEN Administration Ceftriaxone Sodium 1 gm/ 50 mls @ 100 mls/hr 08/06/21 21:00 08/06/21 21:14 Sodium Chloride IVPB 100 mls/hr Q12HR JUSTEN Administration Lactobacillus Acidoph/Bulgaricus 1 each 08/06/21 21:00 08/06/21 21:14 Lactobacillus Acidoph & Bulgar 1 Each Packet PO 1 each HS JUSTEN Administration Lactulose 20 gm 08/06/21 18:12 Lactulose 20 Gm/30 Ml Cup PO DAILY PRN Constipation Levothyroxine Sodium 50 mcg 08/07/21 06:30 08/07/21 06:41 Levothyroxine 50 Mcg Tab PO 50 mcg DAILY@0630 JUSTEN Administration Lorazepam 0.5 mg 08/06/21 18:12 Lorazepam 0.5 Mg Tab PO Q6HR PRN Anxiety Losartan Potassium 50 mg 08/07/21 09:00 Losartan 50 Mg Tab PO DAILY [facility] Melatonin 3 mg 08/06/21 18:12 Melatonin 3 Mg Tablet PO HS PRN Insomnia Methylprednisolone Sodium Succinate 40 mg 08/06/21 18:30 08/06/21 23:28 Methylprednisolone Sod Succi 40 Mg/Ml 1 Ml Vial IV Not Given Q8HR JUST[facility] Metoprolol Tartrate 12.5 mg 08/06/21 21:00 08/06/21 21:14 Metoprolol Tartrate 12.5 Mg Tab PO 12.5 mg BID JUSTEN Administration Montelukast Sodium 10 mg 08/06/21 21:00 08/06/21 21:15 Montelukast 10 Mg Tab PO 10 mg HS JUSTEN Administration Naloxone HCl 0.2 mg 08/06/21 14:26 Naloxone 0.4 Mg/Ml 1 Ml Vial IV Q2M PRN Opioid Reversal Ondansetron HCl 4 mg 08/06/21 18:12 Ondansetron 4 Mg/2 Ml Vial IVP Q8HR PRN Nausea And Vomiting Pantoprazole Sodium 40 mg 08/06/21 21:00 08/06/21 21:15 Pantoprazole 40 Mg Tablet PO 40 mg HS JUSTEN Administration Potassium Chloride 10 meq 08/06/21 21:00 08/06/21 21:15 Potassium Chloride Er 10 Meq Tab.Er.Prt PO 10 meq HS JUSTEN Administration Rivaroxaban 15 mg 08/06/21 21:00 08/06/21 21:15 Rivaroxaban 15 Mg Tab PO 15 mg HS JUSTEN Administration Protocol Tiotropium Elbe 2.5 puff 08/07/21 08:00 08/07/21 08:13 Tiotropium 2.5 Mcg Inhaler INHALATION Not Given RT-DAILY JUSTEN Intake and Output 08/06/21 08/07/21 08/07/21 22:59 06:59 14:59 Output Total 750 Balance -750 Output: Urine 750 Other: # Voids 2 Weight 95.254 kg 98 kg 08/06/21 11:59 08/06/21 11:59 Assessment and Plan Assessment: Assessment #1 atrial fibrillation with RVR #2 known paroxysmal atrial fibrillation #3 COVID-19 infection #4 coronary artery disease #5 valvular heart disease #6 lung cancer with metastasis #7 dyslipidemia #8 multiple comorbid conditions Plan #1 continue the current medical regimen #2 increase the dose of beta ava #3 tried to wean the patient from Cardizem #4 follow-up with the patient
[2021-08-07] MEDS: guaiFENesin 600 MG TABLET.ER PO SCH ×4 (09:23→22:11)
[2021-08-07] MEDS: FUROSEMIDE 20 MG TAB PO SCH (09:23)
[2021-08-07] MEDS: FLUoxetine HCL 20 MG CAP PO SCH (09:23)
[2021-08-07] MEDS: methylPREDNISolone SOD SUCCI 40 MG/ML 1 ML VIAL IV SCH (09:23)
[2021-08-07] MEDS: LOSARTAN 50 MG TAB PO SCH (09:23)
[2021-08-07] MEDS: CHOLECALCIFEROL 25 MCG (1000 IU) TABLET PO SCH (09:23)
[2021-08-07] MEDS: FOLIC ACID 1 MG TAB PO SCH (09:23)
[2021-08-07] MEDS: SODIUM CHLORIDE 0.9% 1,000 ML IV SCH ×2 (09:24→12:09)
[2021-08-07] MEDS: METOPROLOL TARTRATE 25 MG TAB PO SCH ×2 (09:28→22:11)
[2021-08-07 09:56] VITALS: RESP 18
--- NOTE | 2021-08-07 13:02 | P.CNPUL ---
History of Present Illness Consult date: 08/07/21 Requesting physician: Tres Mina Reason for consult: dyspnea Chief complaint: Shortness of breath, dizziness History of present illness: This is a very pleasant 81-year-old male patient who has a history of non-small cell lung cancer of the left lower lobe, brain metastasis status post radiation and subsequent TIA. He was scheduled for a follow-up PET scan yesterday that he had been having issues with dizziness and shortness of breath. He did test positive for COVID-19 back on 07/26/2021 and received monoclonal antibodies. He is still testing positive yesterday. He is outside the window for Remdesivir. Not requiring of oxygen for Baricitinib. He has been fully vaccinated with P fizer including a booster dose approximate 3 weeks ago. He has a history of atrial fibrillation and has been anticoagulated with Xarelto. He presented in RVR yesterday. Chest x-ray revealed no acute pulmonary process. VQ scan revealed low probability for pulmonary embolism. White count 10.6. Hemoglobin 16.2. D-dimer 1.3. Sodium 136. Potassium 4.2. Creatinine 1.47. Glucose 100. Lactic acid 1.9. AST 17. ALT 16. Troponin 0.096. ProBNP 5850. He is seen today in consultation on the selective care unit. Awake and alert in no acute distress. Denies any chest pain, worsening shortness of breath, cough or congestion. He is maintaining O2 saturation in the 90s on room air. Afebrile. Hemodynamically stable. He is currently on Symbicort, albuterol, Spiriva, IV Solu-Medrol. Antibiotics in the form of ceftriaxone. Remains on Xarelto. Review of Systems REVIEW OF SYSTEMS: CONSTITUTIONAL: Denies any recent significant weight loss or weight gain. EYES: Denies change in vision. EARS, NOSE, MOUTH, THROAT: Denies headaches, denies sore throat. CARDIOVASCULAR: Deferred dizziness, palpitations no syncopal episodes. RESPIRATORY: Positive for shortness of breath, cough, congestion no hemoptysis. GASTROINTESTINAL: Denies change in appetite, denies abdominal pain GENITOURINARY: Denies hematuria, denies infections. MUSKULOSKELETAL: Denies pain, denies swelling. INTEGUMENTARY: Denies rash, denies eczema. NEUROLOGICAL: Denies recent memory loss, no recent seizure activity. PSYCHIATRIC: Denies anxiety, denies depression. HEMATOLOGIC/LYMPHATIC: Denies anemia, denies enlarged lymph nodes. Past Medical History Past Medical History: Atrial Fibrillation, Asthma, Coronary Artery Disease (CAD), Cancer, COPD, GERD/Reflux, Hearing Disorder / Deafness, Hyperlipidemia, Hypertension, Osteoarthritis (OA), Pneumonia, Respiratory Disorder, Sleep Apnea/CPAP/BIPAP, Thyroid Disorder Additional Past Medical History / Comment(s): Lung Cancer, cond stable, currently tx on hold, last chemo was in November/2019, diverticular disease, hx SBO w/ resection/colostomy/reversal, prostate cancer w/ radiation tx, skin cancer removed from face, hypothyroid. Hearing aids. Aortic stenosis History of Any Multi-Drug Resistant Organisms: None Reported Past Surgical History: Bowel Resection, Heart Catheterization, Heart Catheterization With Stent, Orthopedic Surgery, Tonsillectomy Additional Past Surgical History / Comment(s): 01/07/19 bronchoscopy w/ BAL, past bronchoscopies/bx, PCI with stent 2006, bilat reconstructive ear surgery/gland removed under jaw, bowel resection d/t rupture with colostomy later reversed, L cataract removal, demetra fundoloplasty, bilat total shoulders/knees, L knee arthroscopy x 2, EGD, colonoscopy, prostate bx, bilat exciscion gynecomastia, skin cancer removals. Heart cath, [facility] 07/06/20 Past Anesthesia/Blood Transfusion Reactions: No Reported Reaction, Motion Sickness Date of Last Stent Placement:: 2006 Past Psychological History: No Psychological Hx Reported Additional Psychological History / Comment(s): Pt resides with his spouse. He has a nebulizer. He drives. Smoking Status: Former smoker Past Alcohol Use History: None Reported Additional Past Alcohol Use History / Comment(s): SMOKED OCCASIONAL CIGAR. STARTED SMOKING AT AGE 14, SMOKED TILL 1982 Past Drug Use History: None Reported - Past Family History Mother Family Medical History: Cancer Additional Family Medical History / Comment(s): MULTIPLE MEYLOMA Father Family Medical History: Cancer Additional Family Medical History / Comment(s): LUNG CANCER Sister(s) Family Medical History: Cancer Additional Family Medical History / Comment(s): sister had rectal cancer. Son(s) Family Medical History: Cancer Additional Family Medical History / Comment(s): Son has hodgkins lymphoma Medications and Allergies Home Medications Medication Instructions Recorded Confirmed Type FLUoxetine HCL [PROzac] 20 mg PO DAILY 08/05/14 08/06/21 History Levothyroxine Sodium [Synthroid] 50 mcg PO DAILY 08/05/14 08/06/21 History Omeprazole [PriLOSEC] 40 mg PO HS 08/05/14 08/06/21 History Folic Acid 1 mg PO DAILY 02/12/18 08/06/21 History Fluticasone/Umeclidin/Vilanter 1 puff INHALATION RT-DAILY 11/18/19 08/06/21 History [Trelegy Ellipta 100-62.5-25] L.acidoph,Paracasei, B.lactis 1 cap PO HS 03/01/20 08/06/21 History [Probiotic] Montelukast Sodium [Singulair] 10 mg PO HS 04/05/20 08/06/21 History Losartan Potassium 50 mg PO DAILY 06/11/20 08/06/21 History Furosemide [Lasix] 20 mg PO DAILY 06/30/20 08/06/21 History Metoprolol Tartrate [Lopressor] 12.5 mg PO BID 03/26/21 08/06/21 History Cholecalciferol [Vitamin D3 (25 25 mcg PO DAILY 04/12/21 08/06/21 History Mcg = 1000 Iu)] Aspirin EC [Ecotrin Low Dose] 162 mg PO HS 08/06/21 08/06/21 History Potassium Gluconate [Potassium 99 mg PO HS 08/06/21 08/06/21 History Gluconate ER] Rivaroxaban [Xarelto] 15 mg PO HS 08/06/21 08/06/21 History amLODIPine [Norvasc] 7.5 mg PO HS 08/06/21 08/06/21 History Allergies Allergy/AdvReac Type Severity Reaction Status Date / Time No Known Allergies Allergy Verified 08/06/21 12:47 Physical Exam Vitals: Vital Signs Temp Pulse Pulse Resp BP BP Pulse Ox 08/07/21 11:00 98.2 F 86 18 138/87 98 08/07/21 09:53 98.2 F 111 H 18 134/83 94 L 08/07/21 04:00 97.6 F 74 20 146/80 96 08/07/21 00:00 97.7 F 73 18 123/84 97 08/06/21 21:20 97.8 F 74 18 142/82 96 08/06/21 20:00 97.8 F 74 18 142/82 96 08/06/21 18:12 92 20 128/98 95 08/06/21 15:32 83 20 135/91 95 08/06/21 14:24 97 20 122/81 95 Intake and Output 08/06/21 08/07/21 08/07/21 22:59 06:59 14:59 Intake Total 1001.5 Output Total 750 Balance -750 1001.5 Intake: IV 10 Invasive Line 1 10 Intake, IV Titration 751.5 Amount Diltiazem 125 mg In 101.5 Sodium Chloride 0.9% 100 ml @ 5 MG/HR 5 mls/hr IV .Q24H [facility] Rx#:[id number] Sodium Chloride 0.9% 1, 600 000 ml @ 130 mls/hr IV . Q7H42M JSUTEN Rx#:[id number] cefTRIAXone 1 gm In 50 Sodium Chloride 0.9% 50 ml @ 100 mls/hr IVPB Q12HR JUST[facility] Rx#:[id number] Oral 240 Output: Urine 750 Other: Voiding Method Toilet Urinal # Voids 2 Weight 95.254 kg 98 kg GENERAL EXAM: Alert, very pleasant 81-year-old gentleman, on room air, comfortable in no apparent distress. HEAD: Normocephalic. EYES: Normal reaction of pupils, equal size. NOSE: Clear with pink turbinates. THROAT: No erythema or exudates. NECK: No masses, no JVD. CHEST: No chest wall deformity. LUNGS: Equal air entry with no crackles, wheeze, rhonchi or dullness. CVS: S1 and S2 normal with no audible murmur, regular rhythm. ABDOMEN: No hepatosplenomegaly, normal bowel sounds, no guarding or rigidity. SPINE: No scoliosis or deformity SKIN: No rashes CENTRAL NERVOUS SYSTEM: No focal deficits, tone is normal in all 4 extremities. EXTREMITIES: There is no peripheral edema. No clubbing, no cyanosis. Peripheral pulses are intact. Results - Laboratory Findings CBC and BMP: 08/06/21 11:59 08/06/21 11:59 PT/INR, D-dimer PT 10.7 sec (9.0-12.0) 08/06/21 11:59 INR 1.0 (<1.2) 08/06/21 11:59 D-Dimer 1.30 mg/L FEU (<0.60) H 08/06/21 11:59 Abnormal lab findings: Abnormal Labs 08/06/21 08/06/21 08/06/21 11:59 11:59 11:59 RDW 15.6 H D-Dimer 1.30 H Sodium 136 L BUN 26 H Creatinine 1.47 H Glucose 100 H Plasma Lactic Acid Vel Troponin I Coronavirus (PCR) 08/06/21 08/06/21 08/06/21 11:59 11:59 18:17 RDW D-Dimer Sodium BUN Creatinine Glucose Plasma Lactic Acid Vel 4.9 H* Troponin I 0.096 H* Coronavirus (PCR) Detected A - Diagnostic Findings Chest x-ray: image reviewed Assessment and Plan Assessment: 1 Dizziness, shortness of breath secondary to atrial fibrillation with a rapid ventricular response. 2 Recent diagnosis of COVID-19 infection on 07/26/2021 and received monoclonal antibodies. The patient is fully vaccinated including a booster of Pfizer 3 weeks ago. On room air. 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 PET scan from April 2021 revealed a stable medial right upper lung hypermetabolic nodule from 2016. No new areas of abnormal hypermetabolic uptake to suggest active neoplastic recurrence 5 Recent brain metastasis and subsequent radiation. Recent TIA following radiation 6 Coronary artery disease with previous stenting 3 7 History of aortic valve stenosis, status post TAVR procedure 8 Hyperlipidemia 9 Chronic kidney disease 10 History of small bowel resection with ostomy and subsequent reversal 11 History of prostate cancer status post radiation 12 History of skin cancer, resected 13 Hypothyroidism 14 Hypertension Plan: The patient was seen and evaluated today Currently stable from the pulmonary standpoint and on room air Discontinue IV Solu-Medrol Pro-calcitonin normal, discontinue antibiotics Anticoagulated with Xarelto Cardiology consult regarding rate control Remains on vitamin supplements We will continue to follow and make further recommendations based on his clinical setting I, the cosigning physician, performed a history & physical examination of the patient. Lungs sounds are clear. Maintaining good O2 saturations in the 90s on room air. I discussed the assessment and plan of care with my nurse practitioner, America Saunders. I attest to the above consultation as dictated by her. Time with Patient: Greater than 30
[2021-08-07] MEDS ORDERED: FLUCONAZOLE 100 MG TAB PO ONE (14:00)
--- NOTE | 2021-08-07 16:38 | P.PN ---
Progress Note - Text Progress Note Date: 08/07/21 Chief Complaint: Short of breath History present complaint: This is a pleasant 81-year-old patient of Dr. Roxie Melendez. Chronic stable medical conditions include coronary artery disease, CHF with EF of 50-65%, moderate aortic stenosis with sclerosis, COPD, GERD, hyperlipidemia, hypertension, primary osteoarthritis,(s) sleep apnea, hypothyroid. 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 treated with chemotherapy -being followed with Dr. Rutherford. last chemotherapy in October 2019 History of Grabiel fundoplication, has had small bowel obstruction with resection colostomy and reversal of the same. prostate ca ncer treated with radiation.. Bronchoscopy in March 2021 negative for malignant cells. Patient has received both his COVID vaccine and received a booster shot 2 weeks ago. On July 26 patient was diagnosed with COVID 19. One week later he did Monoclonal antibodies. Patient been having increasing shortness of breath. Congested. A lot of cough. No sputum. Poor appetite. At some diarrhea 2. Dizzy. Tired rundown. Presented to the ER. Found to be in atrial fibrillation with a rapid ventricular rate. Started on IV Cardizem drip. August 07: Heart rate better controlled. IV Cardizem discontinued. Lopressor increased to 25 mg twice a day. Slight sputum. Breathing better. Antibiotics discussed to do it by pulmonary. Not felt to be bacterial. Feeling better. Cough is significantly bothering the patient. Review of systems: Was done for constitutional, cardiovascular, GI, pulmonary. relevant finding as above Active Medications Acetaminophen (Acetaminophen Tab 325 Mg Tab) 650 mg PO Q6HR PRN PRN Reason: Mild Pain or Fever > 100.5 Albuterol Sulfate (Albuterol Hfa Inhaler) 4 puff INHALATION RT-Q4H [facility] Last Admin: 08/07/21 12:03 Dose: 4 puff Documented by: Amlodipine Besylate (Amlodipine 5 Mg Tab) 7.5 mg PO HS [facility] Last Admin: 08/06/21 21:14 Dose: 7.5 mg Documented by: Aspirin (Aspirin 81 Mg) 162 mg PO HS [facility] Last Admin: 08/06/21 21:14 Dose: 162 mg Documented by: Budesonide/Formoterol Fumarate (Symbicort 80-4.5 Mcg Inhaler) 2 puff INHALATION RT-BID [facility] Last Admin: 08/07/21 08:12 Dose: 2 puff Documented by: Calcium Carbonate/Glycine (Calcium Carbonate 500 Mg Chewable) 1,000 mg PO Q4HR PRN PRN Reason: Dyspepsia Cholecalciferol (Cholecalciferol 25 Mcg (1000 Iu) Tablet) 25 mcg PO DAILY [facility] Last Admin: 08/07/21 09:23 Dose: 25 mcg Documented by: Fluconazole (Fluconazole 100 Mg Tab) 100 mg PO DAILY [facility] Fluoxetine HCl (Fluoxetine Hcl 20 Mg Cap) 20 mg PO DAILY [facility] Last Admin: 08/07/21 09:23 Dose: 20 mg Documented by: Folic Acid (Folic Acid 1 Mg Tab) 1 mg PO DAILY [facility] Last Admin: 08/07/21 09:23 Dose: 1 mg Documented by: Furosemide (Furosemide 20 Mg Tab) 20 mg PO DAILY [facility] Last Admin: 08/07/21 09:23 Dose: 20 mg Documented by: Guaifenesin (Guaifenesin 600 Mg Tablet.Er) 600 mg PO QID [facility] Last Admin: 08/07/21 12:17 Dose: 600 mg Documented by: Lactobacillus Acidoph/Bulgaricus (Lactobacillus Acidoph & Bulgar 1 Each Packet) 1 each PO HS [facility] Last Admin: 08/06/21 21:14 Dose: 1 each Documented by: Lactulose (Lactulose 20 Gm/30 Ml Cup) 20 gm PO DAILY PRN PRN Reason: Constipation Levothyroxine Sodium (Levothyroxine 50 Mcg Tab) 50 mcg PO DAILY@0630 [facility] Last Admin: 08/07/21 06:41 Dose: 50 mcg Documented by: Lorazepam (Lorazepam 0.5 Mg Tab) 0.5 mg PO Q6HR PRN PRN Reason: Anxiety Losartan Potassium (Losartan 50 Mg Tab) 50 mg PO DAILY [facility] Last Admin: 08/07/21 09:23 Dose: 50 mg Documented by: Melatonin (Melatonin 3 Mg Tablet) 3 mg PO HS PRN PRN Reason: Insomnia Metoprolol Tartrate (Metoprolol Tartrate 25 Mg Tab) 25 mg PO BID [facility] Last Admin: 08/07/21 09:28 Dose: 25 mg Documented by: Montelukast Sodium (Montelukast 10 Mg Tab) 10 mg PO HS [facility] Last Admin: 08/06/21 21:15 Dose: 10 mg Documented by: Naloxone HCl (Naloxone 0.4 Mg/Ml 1 Ml Vial) 0.2 mg IV Q2M PRN PRN Reason: Opioid Reversal Ondansetron HCl (Ondansetron 4 Mg/2 Ml Vial) 4 mg IVP Q8HR PRN PRN Reason: Nausea And Vomiting Pantoprazole Sodium (Pantoprazole 40 Mg Tablet) 40 mg PO [facility] Last Admin: 08/06/21 21:15 Dose: 40 mg Documented by: Potassium Chloride (Potassium Chloride Er 10 Meq Tab.Er.Prt) 10 meq PO [facility] Last Admin: 08/06/21 21:15 Dose: 10 meq Documented by: Rivaroxaban (Rivaroxaban 15 Mg Tab) 15 mg PO HS [facility]; Protocol Last Admin: 08/06/21 21:15 Dose: 15 mg Documented by: Tiotropium [place] (Tiotropium 2.5 Mcg Inhaler) 2.5 puff INHALATION RT-DAILY [facility] Last Admin: 08/07/21 08:13 Dose: Not Given Documented by: Past medical history: Include Coronary artery disease with stent , stage IV adenocarcinoma of the lung on chemotherapy-last time in October 2019, history of Grabiel fundoplication, COPD in an ex-smoker, hypothyroidism, essential hypertension, hyperlipidemia, obstructive sleep apnea, CHF with diastolic dysfunction, moderate aortic stenosis with sclerosis. January 2020 - GI bleed. EGD was unremarkable. Bronchomalacia Social history: . Smoked from age of 14 through 1982 . alcohol occasionally. Retired. Family history: sister had rectal cancer Physical examination: VITAL SIGNS: 97.8, 93, 18, 09/17/1970, 98% room air GENERAL: Sitting on bed, feeling better EYES: Pupils equal. Conjunctiva normal. HEENT: External appearance of nose and ears normal, oral cavity normal. Scanty white spots in the posterior pharynx NECK: JVD not raised; masses not palpable. HEART: First and second heart sounds are normal; no edema. LUNGS: Respiratory rate increased, decreased breath sounds. Minimal wheezing. ABDOMEN: Soft, distended, , liver spleen not palpable, no masses palpable. PSYCH: Alert and oriented x3; mood and affect anxious INVESTIGATIONS, reviewed in the clinical context: August 07: Pro-calcitonin 0.05 White count 10.6 hemoglobin 16.2 platelets 208 d-dimer 1.3 sodium 136 potassium 4.2 BUN 26 creatinine 1.47 EKG tracing: Personally reviewed by me: Atrial fibrillation with a rate of 140 Chest x-ray film personally reviewed by me-scattered infiltrates VQ scan: Low property PE Assessment and plan: -Paroxysmal atrial fibrillation, now presented with atrial fibrillation uncontrolled, better controlled now. IV Cardizem drip-discontinued. Increase Lopressor 25 mg by mouth twice a day. Xarelto 15 mg daily at bedtime -COVID 19 pneumonitis. Patient received his initial COVID vaccine and the booster dose 2 weeks ago. Patient's pulse oxing well. Follow clinically -Pharyngeal candidiasis Diflucan 200 mg 1 now then 100 mg from tomorrow -Acute COPD exacerbation in an ex smoker., Better Symbicort 80/4.52 puffs twice a day. Bronchodilator. IV [id number]-yuuidhomobep. -Pneumonia ruled out. IV ceftriaxone. Discontinued -Chronic tracheal bronchomalacia -Colonic diverticulosis, asymptomatic - Grabiel fundoplication, -Coronary artery disease with a prior history of stent Aspirin, Lopressor, -Stage IV adenocarcinoma of the lung received chemotherapy. Patient is due for his PET scan. -Hypothyroidism Synthroid 50 g daily -Essential hypertension Cozaar 50 mg daily, Lopressor 12.5 twice a day -Obstructive sleep apnea -Chronic congestive heart failure from diastolic dysfunction EF 50-60%. No acute exacerbation. Follow clinically -Moderate aortic stenosis with sclerosis nonrheumatic Follow clinically -Primary osteoarthritis multiple joints Use. Medications as needed -Chronic kidney disease. 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 Follow clinically IV ceftriaxone discontinued. IV Cardizem drip discontinued. Lopressor increased to 25 mg twice a day. Add Diflucan. Discussed with the patient. Hopefully discharge tomorrow depending on her dose. Increase activity.
[2021-08-07] MEDS ORDERED: METOPROLOL TARTRATE 25 MG TAB PO STA (18:35)
[2021-08-07] MEDS: amLODIPine 5 MG TAB PO SCH (22:11)
[2021-08-07] MEDS: MONTELUKAST 10 MG TAB PO SCH (22:11)
[2021-08-07] MEDS: ASPIRIN 81 MG PO SCH (22:11)
[2021-08-07] MEDS: POTASSIUM CHLORIDE ER 10 MEQ TAB.ER.PRT PO SCH (22:11)
[2021-08-07] MEDS: RIVAROXABAN 15 MG TAB PO SCH (22:11)
[2021-08-07] MEDS: PANTOPRAZOLE 40 MG TABLET PO SCH (22:11)
[2021-08-07] MEDS: LACTOBACILLUS ACIDOPH & BULGAR 1 EACH PACKET PO SCH (22:12)
[2021-08-08] MEDS: ALBUTEROL HFA INHALER INHALATION SCH (01:21)
[2021-08-08 04:34] VITALS: TEMP 97.8
[2021-08-08] MEDS: LEVOTHYROXINE 50 MCG TAB PO SCH (05:46)
[2021-08-08] MEDS: CHOLECALCIFEROL 25 MCG (1000 IU) TABLET PO SCH (07:45)
[2021-08-08] MEDS: FUROSEMIDE 20 MG TAB PO SCH (07:45)
[2021-08-08] MEDS: FOLIC ACID 1 MG TAB PO SCH (07:45)
[2021-08-08] MEDS: guaiFENesin 600 MG TABLET.ER PO SCH ×3 (07:46→13:01)
[2021-08-08] MEDS: LOSARTAN 50 MG TAB PO SCH (07:46)
[2021-08-08] MEDS: METOPROLOL TARTRATE 25 MG TAB PO SCH (07:46)
[2021-08-08] MEDS: FLUoxetine HCL 20 MG CAP PO SCH (07:46)
--- NOTE | 2021-08-08 08:39 | P.PN ---
Subjective Progress Note Date: 08/08/21 Principal diagnosis: Paroxysmal atrial fibrillation The patient is an 81-year-old gentleman with extensive medical history consistent off coronary artery disease and prior stenting of the RCA as well as diagonal as well as valvular heart disease and status post transcutaneous aortic valve replacement and paroxysmal atrial fibrillation as well as hypertension and dyslipidemia and history of lung cancer was admitted to the hospital with shortness of breath associated with dizziness and lightheadedness and he was diagnosed with A. fib with RVR. The patient was diagnosed recently was COVID-19 infection in spite of receiving full vaccination and booster shot He continues to be in atrial fibrillation with slightly uncontrolled heart rate. I'm going to increase the dose of metoprolol to 25 mg by mouth 3 times a day. He stated that the dizziness is a slightly better. He reports no symptoms of chest pain or chest discomfort. He continues to be on oral anticoagulation with Xarelto. Pulmonary still on the case and he seems to be stable from the pulmonary standpoint of view. Objective - Vital Signs Vital signs: Vital Signs Temp 97.8 F 08/08/21 07:46 Pulse 76 08/08/21 07:46 Resp 18 08/08/21 07:46 BP 152/97 08/08/21 07:46 Pulse Ox 97 08/08/21 07:46 Intake & Output 08/07/21 08/08/21 08/08/21 18:59 06:59 18:59 Intake Total 1001.5 20 Output Total 575 Balance 1001.5 -575 20 Weight 99 kg Intake: IV 10 20 Invasive Line 1 10 10 Invasive Line 2 10 Intake, IV Titration 751.5 Amount Diltiazem 125 mg In 101.5 Sodium Chloride 0.9% 100 ml @ 5 MG/HR 5 mls/hr IV .Q24H [facility] Rx#:[id number] Sodium Chloride 0.9% 1, 600 000 ml @ 130 mls/hr IV . Q7H42M [facility] Rx#:[id number] cefTRIAXone 1 gm In 50 Sodium Chloride 0.9% 50 ml @ 100 mls/hr IVPB Q12HR [facility] Rx#:[id number] Oral 240 Output: Urine 575 Other: Voiding Method Toilet Toilet Urinal Urinal - Constitutional General appearance: Present: no acute distress - Labs CBC & Chem 7: 08/06/21 11:59 08/06/21 11:59 Assessment and Plan Assessment: Assessment #1 atrial fibrillation with RVR #2 known paroxysmal atrial fibrillation #3 COVID-19 infection recently #4 coronary artery disease #5 valvular heart disease #6 lung cancer with metastasis #7 dyslipidemia #8 multiple comorbid conditions Plan #1 continue the current medical regimen #2 increase the dose of beta ava #3 continue oral anticoagulation #4 follow-up with the patient
[2021-08-08] MEDS ORDERED: FLUCONAZOLE 100 MG TAB PO SCH (09:00)
[2021-08-08] MEDS ORDERED: METOPROLOL TARTRATE 25 MG TAB PO SCH ×2 (09:00→16:00)
[2021-08-08] MEDS: SYMBICORT 80-4.5 MCG INHALER INHALATION SCH (09:05)
[2021-08-08] MEDS: ALBUTEROL HFA INHALER INHALATION PRN ×2 (09:05→12:45)
[2021-08-08] MEDS ORDERED: TIOTROPIUM 2.5 MCG INHALER INHALATION SCH (09:30)
[2021-08-08] MEDS: TIOTROPIUM 2.5 MCG INHALER INHALATION SCH (10:21)
[2021-08-08 11:17] VITALS: BP 125/74; PULSE 73
--- NOTE | 2021-08-08 12:52 | P.DS ---
Providers Date of admission: 08/06/21 14:37 Expected date of discharge: 08/08/21 Attending physician: Tres Mina Consults: 08/06/21 14:26 Consult Physician Routine Consulting Provider: Dexter Kong Consult Reason/Comments: afib with RVR Do you want consulting provider notified?: Yes 08/06/21 14:27 Consult Physician Routine Consulting Provider: Anthony Sheppard Consult Reason/Comments: covid, elevated d-dimer Do you want consulting provider notified?: Yes Primary care physician: Roxie Melendez [facility] Course: Chief Complaint: Short of breath History present complaint: This is a pleasant 81-year-old patient of Dr. Roxie Melendez. Chronic stable medical conditions include coronary artery disease, CHF with EF of 50-65%, moderate aortic stenosis with sclerosis, COPD, GERD, hyperlipidemia, hypertension, primary osteoarthritis,(s) sleep apnea, hypothyroid. 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 treated with chemotherapy -being followed with Dr. Rutherford. last chemotherapy in October 2019 History of Grabiel fundoplication, has had small bowel obstruction with resection colostomy and reversal of the same. prostate cancer treated with radiation.. Bronchoscopy in March 2021 negative for malignant cells. Patient has received both his COVID vaccine and received a booster shot 2 weeks ago. On July 26 patient was diagnosed with COVID 19. One week later he did Monoclonal antibodies. Patient been having increasing shortness of breath. Congested. A lot of cough. No sputum. Poor appetite. At some diarrhea 2. Dizzy. Tired rundown. Presented to the ER. Found to be in atrial fibrillation with a rapid ventricular rate. Started on IV Cardizem drip. August 07: Heart rate better controlled. IV Cardizem discontinued. Lopressor increased to 25 mg twice a day. Slight sputum. Breathing better. Antibiotics discontinued by pulmonary. Not felt to be bacterial. Feeling better. Cough is significantly bothering the patient. August 08: Heart showed a bit on the higher side. Lopressor increased to 25 mg 3 times a day. Cleared by currently for discharge. Breathing stable. Patient to complete a short course of Diflucan. Warm water with salt gargle advice for throat discomfort. Care was discussed with the patient. Questions answered. Discussion and discharge planning more than 35 minutes Consultation: Dr. Ortez from cardiology Dr. Sheppard from pulmonary Past medical history: Include Coronary artery disease with stent , stage IV adenocarcinoma of the lung on chemotherapy-last time in October 2019, history of Grabiel fundoplication, COPD in an ex-smoker, hypothyroidism, essential hypertension, hyperlipidemia, obstructive sleep apnea, CHF with diastolic dysfunction, moderate aortic stenosis with sclerosis. January 2020 - GI bleed. EGD was unremarkable. Bronchomalacia Social history: . Smoked from age of 14 through 1982 . alcohol occasionally. Retired. Family history: sister had rectal cancer Physical examination: VITAL SIGNS: 97.8, 73, 18, 125 [place] 4, 96% room air GENERAL: Sitting up in chair, awake, comfortable EYES: Pupils equal. Conjunctiva normal. HEENT: External appearance of nose and ears normal, oral cavity normal. Scanty white spots in the posterior pharynx NECK: JVD not raised; masses not palpable. HEART: Heart sounds irregular; no edema. LUNGS: Respiratory rate increased, decreased breath sounds ABDOMEN: Soft, distended, , liver spleen not palpable, no masses palpable. PSYCH: Alert and oriented x3; mood and affect anxious INVESTIGATIONS, reviewed in the clinical context: August 07: Pro-calcitonin 0.05 White count 10.6 hemoglobin 16.2 platelets 208 d-dimer 1.3 sodium 136 potassium 4.2 BUN 26 creatinine 1.47 EKG tracing: Personally reviewed by me: Atrial fibrillation with a rate of 140 Chest x-ray film personally reviewed by me-scattered infiltrates VQ scan: Low property PE Assessment and plan: -Paroxysmal atrial fibrillation, now presented with atrial fibrillation uncontrolled, better controlled now. IV Cardizem drip-discontinued. Lopressor 25 mg by mouth 3 times a day. Xarelto 15 mg daily at bedtime -COVID 19 pneumonitis. Patient received his initial COVID vaccine and the booster dose 2 weeks ago. Patient's pulse oxing well. Follow clinically -Pharyngeal candidiasis Diflucan 100 mg a day for 5 days -Acute COPD exacerbation in an ex smoker., Better Symbicort 80/4.52 puffs twice a day. Bronchodilator. IV Xoay-Enaemd-[id number]. -Pneumonia ruled out. IV ceftriaxone. Discontinued -Chronic tracheal bronchomalacia -Colonic diverticulosis, asymptomatic - Grabiel fundoplication, -Coronary artery disease with a prior history of stent Aspirin, Lopressor, -Stage IV adenocarcinoma of the lung received chemotherapy. Patient is due for his PET scan. -Hypothyroidism Synthroid 50 g daily -Essential hypertension Cozaar 50 mg daily, Lopressor 12.5 twice a day -Obstructive sleep apnea -Chronic congestive heart failure from diastolic dysfunction EF 50-60%. No acute exacerbation. Follow clinically -Moderate aortic stenosis with sclerosis nonrheumatic Follow clinically -Primary osteoarthritis multiple joints Use. Medications as needed -Chronic kidney disease. 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 Follow clinically Disposition: Home Patient Condition at Discharge: Fair Plan - Discharge Summary Discharge Rx Participant: No New Discharge Prescriptions: New Albuterol Inhaler [Ventolin Hfa Inhaler] 2 puff INHALATION RT-QID PRN #1 gm PRN Reason: Shortness Of Breath Or Wheezing Fluconazole [Diflucan] 100 mg PO DAILY #5 tab Continue Levothyroxine Sodium [Synthroid] 50 mcg PO DAILY FLUoxetine HCL [PROzac] 20 mg PO DAILY Omeprazole [PriLOSEC] 40 mg PO HS Folic Acid 1 mg PO DAILY Fluticasone/Umeclidin/Vilanter [Trelegy Ellipta 100-62.5-25] 1 puff INHALATION RT-DAILY L.acidoph,Paracasei, B.lactis [Probiotic] 1 cap PO HS Montelukast Sodium [Singulair] 10 mg PO HS Losartan Potassium 50 mg PO DAILY Furosemide [Lasix] 20 mg PO DAILY Cholecalciferol [Vitamin D3 (25 Mcg = 1000 Iu)] 25 mcg PO DAILY Potassium Gluconate [Potassium Gluconate ER] 99 mg PO HS Aspirin EC [Ecotrin Low Dose] 162 mg PO HS Rivaroxaban [Xarelto] 15 mg PO HS amLODIPine [Norvasc] 7.5 mg PO HS Changed Metoprolol Tartrate [Lopressor] 25 mg PO BID #90 tab Discharge Medication List FLUoxetine HCL [PROzac] 20 mg PO DAILY 08/05/14 [History] Levothyroxine Sodium [Synthroid] 50 mcg PO DAILY 08/05/14 [History] Omeprazole [PriLOSEC] 40 mg PO HS 08/05/14 [History] Folic Acid 1 mg PO DAILY 02/12/18 [History] Fluticasone/Umeclidin/Vilanter [Trelegy Ellipta 100-62.5-25] 1 puff INHALATION RT-DAILY 11/18/19 [History] L.acidoph,Paracasei, B.lactis [Probiotic] 1 cap PO HS 03/01/20 [History] Montelukast Sodium [Singulair] 10 mg PO HS 04/05/20 [History] Losartan Potassium 50 mg PO DAILY 06/11/20 [History] Furosemide [Lasix] 20 mg PO DAILY 06/30/20 [History] Cholecalciferol [Vitamin D3 (25 Mcg = 1000 Iu)] 25 mcg PO DAILY 04/12/21 [History] Aspirin EC [Ecotrin Low Dose] 162 mg PO HS 08/06/21 [History] Potassium Gluconate [Potassium Gluconate ER] 99 mg PO HS 08/06/21 [History] Rivaroxaban [Xarelto] 15 mg PO HS 08/06/21 [History] amLODIPine [Norvasc] 7.5 mg PO HS 08/06/21 [History] Albuterol Inhaler [Ventolin Hfa Inhaler] 2 puff INHALATION RT-QID PRN #1 gm 08/08/21 [Rx] Fluconazole [Diflucan] 100 mg PO DAILY #5 tab 08/08/21 [Rx] Metoprolol Tartrate [Lopressor] 25 mg PO BID #90 tab 08/08/21 [Rx] Follow up Appointment(s)/Referral(s): Anthony Sheppard MD [STAFF PHYSICIAN] - 1 Week (OFFICES ARE CLOSED. PLEASE CALL MONDAY TO GET A POST HOSPITAL FOLLOW UP APPOINTMENT.) Dexter Kong MD [STAFF PHYSICIAN] - 1 Week (OFFICES ARE CLOSED. PLEASE CALL MONDAY TO GET A POST HOSPITAL FOLLOW UP APPOINTMENT.) Roxie Melendez DO [Primary Care Provider] - 1-2 days (OFFICES ARE CLOSED. PLEASE CALL MONDAY TO GET A POST HOSPITAL FOLLOW UP APPOINTMENT.) Patient Instructions/Handouts: Coronavirus Disease 2019 (COVID-19), A-fib (Atrial Fibrillation) (DC), Oral Candidiasis (ED) Activity/Diet/Wound Care/Special Instructions: NO COLD LIQUIDS PLEASE DRINK COFFEE/TEA/ROOM TEMP WATER GARGLE WITH WARM WATER AND SALT UP TO FOUR TIMES A DAY, AT MINIMUM- MORNING AND NIGHT UNTIL THRUSH IS CLEARED UP DYNAMITE RECLAIMER RICOLA COUGH DROPS TO SOOTHE THROAT AND EASE COUGH.
--- NOTE | 2021-08-08 16:04 | P.PN ---
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 He was scheduled for a follow-up PET scan yesterday that he had been having issues with dizziness and shortness of breath. He did test positive for COVID-19 back on 07/26/2021 and received monoclonal antibodies. He is still testing positive yesterday. He is outside the window for Remdesivir. Not requiring of oxygen for Baricitinib. He has been fully vaccinated with [employer] including a booster dose approximate 3 weeks ago. He has a history of atrial fibrillation and has been anticoagulated with Xarelto. He presented in RVR yesterday. Chest x-ray revealed no acute pulmonary process. VQ scan revealed low probability for pulmonary embolism. White count 10.6. Hemoglobin 16.2. D-dimer 1.3. Sodium 136. Potassium 4.2. Creatinine 1.47. Glucose 100. Lactic acid 1.9. AST 17. ALT 16. Troponin 0.096. ProBNP 5850. He is seen today in consultation on the selective care unit. Awake and alert in no acute distress. Denies any chest pain, worsening shortness of breath, cough or congestion. He is maintaining O2 saturation in the 90s on room air. Afebrile. Hemodynamically stable. He is currently on Symbicort, albuterol, Spiriva, IV Solu-Medrol. Antibiotics in the form of ceftriaxone. Remains on Xarelto. On 08/08/2021 patient seen in follow-up on selective care unit, he is breathing comfortably, lung sounds are clear to auscultation, he came in with Maite sandoval with RVR which is currently controlled, rate is 73 BPM, blood pressure has been stable, breathing is nonlabored, room air pulse ox is 96%, his been afebrile, he remains on Xarelto 4 history of atrial fibrillation, he had a recent diagnosis of COVID-19 infection patient is fully vaccinated and received the Pfizer booster 3 weeks ago, and patient received a monoclonal antibody infusion. VQ scan showed low probability for PE. And his chest x-ray on admission showed no evidence of acute pulmonary disease. He had no acute events overnight, Objective - Vital Signs Vital signs: Vital Signs Temp 97.8 F 08/08/21 11:08 Pulse 73 08/08/21 11:08 Resp 18 08/08/21 11:08 BP 125/74 08/08/21 11:08 Pulse Ox 96 08/08/21 11:08 Intake & Output 08/07/21 08/08/21 08/08/21 18:59 06:59 18:59 Intake Total 1001.5 20 Output Total 575 300 Balance 1001.5 -575 -280 Weight 99 kg Intake: IV 10 20 Invasive Line 1 10 10 Invasive Line 2 10 Intake, IV Titration 751.5 Amount Diltiazem 125 mg In 101.5 Sodium Chloride 0.9% 100 ml @ 5 MG/HR 5 mls/hr IV .Q24H [facility] Rx#:[id number] Sodium Chloride 0.9% 1, 600 000 ml @ 130 mls/hr IV . Q7H42M [facility] Rx#:[id number] cefTRIAXone 1 gm In 50 Sodium Chloride 0.9% 50 ml @ 100 mls/hr IVPB Q12HR [facility] Rx#:[id number] Oral 240 Output: Urine 575 300 Other: Voiding Method Toilet Toilet Urinal Urinal - Exam GENERAL EXAM: Alert, very pleasant, 81-year-old white male on room air with a pulse ox of 96% comfortable in no apparent distress. HEAD: Normocephalic/atraumatic. EYES: Normal reaction of pupils, equal size. Conjunctiva pink, sclera white. NOSE: Clear with pink turbinates. THROAT: No erythema or exudates. NECK: No masses, no JVD, no thyroid enlargement, no adenopathy. CHEST: No chest wall deformity. Symmetrical expansion. LUNGS: Equal air entry with no crackles, wheeze, rhonchi or dullness. CVS: Irregular rate and rhythm, normal S1 and S2, no gallops, no murmurs, no rubs ABDOMEN: Soft, nontender. No hepatosplenomegaly, normal bowel sounds, no guarding or rigidity. EXTREMITIES: No clubbing, no edema, no cyanosis, 2+ pulses and upper and lower extremities. MUSCULOSKELETAL: Muscle strength and tone normal. SPINE: No scoliosis or deformity SKIN: No rashes CENTRAL NERVOUS SYSTEM: Alert and oriented -3. No focal deficits, tone is n ormal in all 4 extremities. PSYCHIATRIC: Alert and oriented -3. Appropriate affect. Intact judgment and insight. - Labs CBC & Chem 7: 08/06/21 11:59 08/06/21 11:59 Assessment and Plan Plan: Assessment: #1. Dizziness, shortness of breath related to A. fib with RVR, improved. Chest x-ray showed no acute pulmonary process, V/Q scan showed low probability for pulmonary embolism #2. Recent diagnosis of COVID-19 infection on 07/26/2021, status post monoclonal antibody infusion. Patient is fully vaccinated including a booster of Pfizer 3 weeks ago. He remains on room air #3. History of atrial fibrillation on Xarelto #4. History of non-small cell lung carcinoma with malignant pleural effusion and systemic chemotherapy, PET scan from April 2021 showed a stable medial right upper lobe hypermetabolic nodule from 2015 with no new areas of abnormal hypermetabolic uptake to suggest active neoplastic recurrence #5. Recent brain metastasis and subsequent radiation, recent TIA following radiation #6. Coronary artery disease with previous stenting 3 #7. History of aortic valve stenosis, status postTAVR procedure #8. Hyperlipidemia #9. Chronic kidney disease #10. History of small bowel resection with ostomy and subsequent reversal #11. History of prostate cancer status post radiation #12. History of skin cancer, with resection #13. Hypothyroidism #14. Hypertension #15. History of COPD with FEV1 of 69% of predicted at baseline, consistent with stage II COPD #16. Chronic kidney disease Plan: Patient has been stable from pulmonary perspective History chest x-ray showed no acute pulmonary process, he remains on room air His heart rate is better controlled, he remains on Xarelto From pulmonary perspective he stable for discharge home with outpatient follow- up with Dr. Sheppard in the office He may continue on vitamin supplements and Xarelto and he may resume his inhalers I performed a history & physical examination of the patient and discussed their management with my nurse practitioner, Ladan Awad. I reviewed the nurse practitioner's note and agree with the documented findings and plan of care. Lung sounds are positive for clear breath sounds throughout the lung li. The findings and the impression was discussed with the patient. I attest to the documentation by the nurse practitioner. Time with Patient: Less than 30
== END 2021-08-08 13:30 | disposition home or self-care (01) | DRG 177 ==
LOC: EC 11:44 → 3SCARD 14:37
PROVIDERS: ADMIT Hospitalist; ATTEND Hospitalist
DX: U07.1 COVID-19 (principal); J12.82 Pneumonia due to coronavirus disease 2019; I50.32 Chronic diastolic (congestive) heart failure; I13.0 Hypertensive heart and chronic kidney disease with heart failure and stage 1 through stage 4 chronic kidney disease, or unspecified chronic kidney disease; B37.89 Other sites of candidiasis; J44.0 Chronic obstructive pulmonary disease with (acute) lower respiratory infection; J44.1 Chronic obstructive pulmonary disease with (acute) exacerbation; C79.31 Secondary malignant neoplasm of brain; J91.0 Malignant pleural effusion; K57.30 Diverticulosis of large intestine without perforation or abscess without bleeding; I25.10 Atherosclerotic heart disease of native coronary artery without angina pectoris; Z78.9 Other specified health status; N18.9 Chronic kidney disease, unspecified; M15.9 Polyosteoarthritis, unspecified; K21.9 Gastro-esophageal reflux disease without esophagitis; R09.02 Hypoxemia; I48.0 Paroxysmal atrial fibrillation; I35.0 Nonrheumatic aortic (valve) stenosis; H91.90 Unspecified hearing loss, unspecified ear; G47.33 Obstructive sleep apnea (adult) (pediatric); E78.5 Hyperlipidemia, unspecified; E03.9 Hypothyroidism, unspecified; J98.09 Other diseases of bronchus, not elsewhere classified; Z79.01 Long term (current) use of anticoagulants; Z79.890 Hormone replacement therapy; Z79.899 Other long term (current) drug therapy; Z85.118 Personal history of other malignant neoplasm of bronchus and lung; Z85.46 Personal history of malignant neoplasm of prostate; Z85.828 Personal history of other malignant neoplasm of skin; Z86.73 Personal history of transient ischemic attack (TIA), and cerebral infarction without residual deficits; Z80.1 Family history of malignant neoplasm of trachea, bronchus and lung; Z87.891 Personal history of nicotine dependence; Z92.3 Personal history of irradiation; Z92.21 Personal history of antineoplastic chemotherapy; Z93.3 Colostomy status; Z95.2 Presence of prosthetic heart valve; Z95.5 Presence of coronary angioplasty implant and graft; Z98.42 Cataract extraction status, left eye; Z87.19 Personal history of other diseases of the digestive system
CPT/HCPCS: 36415; 71046; 78580; 80053; 81003; 83605; 83735; 83880; 84145; 84484; 85025; 85379; 85610; 85730; 87070; 87205; 87635; 93005; 94640; 99291

== ENCOUNTER → 2021-08-13 | Outpatient (CLI) | payer MEDICARE ==
--- NOTE | 2021-08-13 13:07 | MR ---
EXAMINATION TYPE: MR brain wo/w con DATE OF EXAM: 08/13/2021 COMPARISON: Prior MRI brain April 22, 2021 and older studies. HISTORY: Secondary malignant neoplasm of brain TECHNIQUE: Multiplanar, multisequence images of the brain and brainstem is performed without and with IV contras t, utilizing 10 mL intravenous Gadavist . FINDINGS: Diffusion weighted images demonstrate no evidence of a recent infarct or other diffusion ab normality. There is persistent mild to moderate ventricular and sulcal prominence. Persistent mild t o moderate multifocal and confluent areas of T2 hyperintensity greatest in the periventricular white matter are redemonstrated. Midline structures redemonstrate normal morphology. The craniocervical junction remains within tony l limits. Punctate 2 mm enhancing focus central right cerebellar hemisphere axial image 15 is decreased in size from prior study. Enhancing lesion left posterior perimesencephalic cistern level measures 6 x 4 mm current study axial image 29, decrease in size from prior study near the marked superior anterior asp ect of the left cerebellum. No definitive new enhancing lesions. The dural venous sinuses appear grubbs nt. Evidence of prior paranasal sinus surgery with mild to moderate residual mucosal thickening in et hmoid sinuses bilaterally and in the anterior-inferior right maxillary sinus. Globes are intact bilat erally. IMPRESSION: Partial positive treatment response as detailed above.
== END | disposition home or self-care (01) ==
LOC: RADMRIMAIN 11:45
PROVIDERS: ATTEND Radiology Radiation Oncology
DX: C79.31 Secondary malignant neoplasm of brain (principal); C80.1 Malignant (primary) neoplasm, unspecified
CPT/HCPCS: 70553; A9585

== ENCOUNTER 2021-08-14 16:15 | Inpatient (IN) | payer MEDICARE ==
--- NOTE | 2021-08-14 16:31 | ED ---
General Adult HPI - General Chief complaint: Weakness Stated complaint: L Sided Numbness, TIA 6 wks ago Time Seen by Provider: 08/14/21 16:25 Source: patient, EMS Mode of arrival: EMS Limitations: no limitations - History of Present Illness Initial comments: Patient presents to the emergency department by ambulance for evaluation. Patient states that for the past 4 days, he has had intermittent left-sided "numbness". Patient states that his left-sided numbness is ONLY present when he is ambulating, and he states that he has no numbness when he is laying down or at rest (patient denies having any numbness currently). Patient states that the numbness includes the entire left side of his face and body except for inferior to his left knee. Patient states that he underwent radiation treatment for lesions in his brain recently, and he had a follow-up brain MRI with and without contrast performed yesterday. I reviewed the patient's MRI report myself, and it shows "partial positive treatment response". Patient states that he already had his ambulatory left-sided numbness symptoms going on for about 3 days when he had his brain MRI obtained yesterday. Patient states that he has chronic mild aphasia from a prior stroke, but he denies any other chronic neurological deficits. Patient denies trauma or injury, any pain, fever or chills, headache, focal weakness, visual changes, neck/back/extremity pain, chest pain, dyspnea, palpitations, dizziness, abdominal pain, nausea/vomiting/diarrhea, dysuria or urinary symptoms, or any other symptoms or complaints. - Related Data Home Medications Medication Instructions Recorded Confirmed FLUoxetine HCL [PROzac] 20 mg PO DAILY 08/05/14 08/14/21 Levothyroxine Sodium [Synthroid] 50 mcg PO DAILY 08/05/14 08/14/21 Omeprazole [PriLOSEC] 40 mg PO HS 08/05/14 08/14/21 Folic Acid 1 mg PO DAILY 02/12/18 08/14/21 Fluticasone/Umeclidin/Vilanter 1 puff INHALATION RT-DAILY 11/18/19 08/14/21 [Trelegy Ellipta 100-62.5-25] L.acidoph,Paracasei, B.lactis 1 cap PO HS 03/01/20 08/14/21 [Probiotic] Montelukast Sodium [Singulair] 10 mg PO HS 04/05/20 08/14/21 Losartan Potassium 50 mg PO DAILY 06/11/20 08/14/21 Furosemide [Lasix] 20 mg PO DAILY 06/30/20 08/14/21 Cholecalciferol [Vitamin D3 (25 25 mcg PO DAILY 04/12/21 08/14/21 Mcg = 1000 Iu)] Aspirin EC [Ecotrin Low Dose] 162 mg PO HS 08/06/21 08/14/21 Potassium Gluconate [Potassium 99 mg PO HS 08/06/21 08/14/21 Gluconate ER] Rivaroxaban [Xarelto] 15 mg PO HS 08/06/21 08/14/21 amLODIPine [Norvasc] 7.5 mg PO HS 08/06/21 08/14/21 Previous Rx's Medication Instructions Recorded Albuterol Inhaler [Ventolin Hfa 2 puff INHALATION RT-QID PRN #1 gm 08/08/21 Inhaler] Metoprolol Tartrate [Lopressor] 25 mg PO BID #90 tab 08/08/21 Allergies Allergy/AdvReac Type Severity Reaction Status Date / Time No Known Allergies Allergy Verified 08/14/21 17:03 Review of Systems ROS Statement: Those systems with pertinent positive or pertinent negative responses have been documented in the HPI. ROS Other: All systems not noted in ROS Statement are negative. Past Medical History Past Medical History: Atrial Fibrillation, Asthma, Coronary Artery Disease (CAD), Cancer, COPD, GERD/Reflux, Hearing Disorder / Deafness, Hyperlipidemia, Hypertension, Osteoarthritis (OA), Pneumonia, Respiratory Disorder, Sleep Apnea/CPAP/BIPAP, Thyroid Disorder Additional Past Medical History / Comment(s): Lung Cancer, cond stable, currently tx on hold, last chemo was in November/2019, diverticular disease, hx SBO w/ resection/colostomy/reversal, prostate cancer w/ radiation tx, skin cancer removed from face, hypothyroid. Hearing aids. Aortic stenosis History of Any Multi-Drug Resistant Organisms: None Reported Past Surgical History: Bowel Resection, Heart Catheterization, Heart Catheterization With Stent, Orthopedic Surgery, Tonsillectomy Additional Past Surgical History / Comment(s): 01/07/19 bronchoscopy w/ BAL, past bronchoscopies/bx, PCI with stent 2006, bilat reconstructive ear surgery/gland removed under jaw, bowel resection d/t rupture with colostomy later reversed, L cataract removal, demetra fundoloplasty, bilat total shoulders/knees, L knee arthroscopy x 2, EGD, colonoscopy, prostate bx, bilat exciscion gynecomastia, skin cancer removals. Heart cath, [facility] 07/06/20 Past Anesthesia/Blood Transfusion Reactions: No Reported Reaction, Motion Sickness Date of Last Stent Placement:: 2006 Past Psychological History: No Psychological Hx Reported Smoking Status: Former smoker Past Alcohol Use History: None Reported Past Drug Use History: None Reported - Past Family History Mother Family Medical History: Cancer Additional Family Medical History / Comment(s): MULTIPLE MEYLOMA Father Family Medical History: Cancer Additional Family Medical History / Comment(s): LUNG CANCER Sister(s) Family Medical History: Cancer Additional Family Medical History / Comment(s): sister had rectal cancer. Son(s) Family Medical History: Cancer Additional Family Medical History / Comment(s): Son has hodgkins lymphoma General Exam Limitations: no limitations General appearance: alert, in no apparent distress Head exam: Present: atraumatic, normocephalic Eye exam: Present: normal appearance, PERRL, EOMI ENT exam: Present: mucous membranes moist Neck exam: Present: other (Trachea is in midline). Absent: tenderness, meningismus Respiratory exam: Present: normal lung sounds bilaterally. Absent: respiratory distress, wheezes, rales, rhonchi, stridor Cardiovascular Exam: Present: normal rhythm, bradycardia, normal heart sounds, other (Normal radial pulses bilaterally) GI/Abdominal exam: Present: soft. Absent: distended, tenderness, guarding Extremities exam: Present: full ROM. Absent: tenderness, pedal edema Back exam: Present: normal inspection. Absent: tenderness Neurological exam: Present: alert, oriented X3, CN II-XII intact. Absent: motor sensory deficit Psychiatric exam: Present: normal affect, normal mood Skin exam: Present: warm, dry, intact, normal color Course Vital Signs 08/14/21 08/14/21 16:17 18:26 Temperature 97.0 F L Pulse Rate 51 L 56 L Respiratory 18 20 Rate Blood Pressure 167/93 144/97 O2 Sat by Pulse 98 98 Oximetry - Reevaluation(s) Reevaluation #1: 08/14/21 19:11 Case, H&P and test results/recent MRI report were discussed with Dr. Garcia (neurologist). He recommends admitting the patient to the hospital for observation, and he states that he will see the patient in consultation tomorrow. He has no further recommendations at this time. 08/14/21 19:56 Case, H&P, test results and my discussion with Dr. Garcai as above were discussed with Dr. Mina. He accepts hospital admission. He has no further recommendations at this time. EKG Findings - EKG Comments: EKG Findings:: Sinus bradycardia, ventricular rate of 50 bpm, no ectopy, normal MS and QRS intervals, normal QT interval, normal axis, no ST or T-wave abnormality Medical Decision Making - Medical Decision Making Patient has a nonfocal neurological exam in the emergency department. Patient denies having any symptoms while at rest in the emergency department. Given the patient's unusual symptoms/history, the patient's case was discussed with Dr. Garcia (neurology), and he has recommended hospital admission for observation. Dr. Mina was then contacted, and he has accepted hospital admission. No head imaging was obtained in the ED given that the patient had a brain MRI with and without contrast done just yesterday, and the patient reports that his symptoms began 4 days ago. Patient's labs are fairly unremarkable. - Lab Data Result diagrams: 08/14/21 17:23 08/14/21 17:23 Lab Results 08/14/21 08/14/21 08/14/21 Range/Units 17:23 17:23 17:23 WBC 7.7 (3.8-10.6) k/uL RBC 4.84 (4.30-5.90) m/uL Hgb 14.2 (13.0-17.5) gm/dL Hct 42.9 (39.0-53.0) % MCV 88.7 (80.0-100.0) fL MCH 29.5 (25.0-35.0) pg MCHC 33.2 (31.0-37.0) g/dL RDW 14.8 (11.5-15.5) % Plt Count 210 (150-450) k/uL MPV 7.7 Neutrophils % 82 % Lymphocytes % 11 % Monocytes % 5 % Eosinophils % 1 % Basophils % 1 % Neutrophils # 6.3 (1.3-7.7) k/uL Lymphocytes # 0.8 L (1.0-4.8) k/uL Monocytes # 0.4 (0-1.0) k/uL Eosinophils # 0.1 (0-0.7) k/uL Basophils # 0.0 (0-0.2) k/uL PT 10.8 (9.0-12.0) sec INR 1.0 (<1.2) APTT 22.0 (22.0-30.0) sec Sodium 131 L (137-145) mmol/L Potassium 4.7 (3.5-5.1) mmol/L Chloride 101 (98-107) mmol/L Carbon Dioxide 21 L (22-30) mmol/L Anion Gap 9 mmol/L BUN 36 H (9-20) mg/dL Creatinine 1.29 H (0.66-1.25) mg/dL Est GFR (CKD-EPI)AfAm 59 (>60 ml/min/1.73 sqM) Est GFR (CKD-EPI)NonAf 51 (>60 ml/min/1.73 sqM) Glucose 142 H (74-99) mg/dL Calcium 9.6 (8.4-10.2) mg/dL Magnesium 1.6 (1.6-2.3) mg/dL Total Bilirubin 0.4 (0.2-1.3) mg/dL AST 17 (17-59) U/L ALT 15 (4-49) U/L Alkaline Phosphatase 85 (38-126) U/L Troponin I (0.000-0.034) ng/mL Total Protein 6.4 (6.3-8.2) g/dL Albumin 3.7 (3.5-5.0) g/dL 08/14/21 Range/Units 17:23 WBC (3.8-10.6) k/uL RBC (4.30-5.90) m/uL Hgb (13.0-17.5) gm/dL Hct (39.0-53.0) % MCV (80.0-100.0) fL MCH (25.0-35.0) pg MCHC (31.0-37.0) g/dL RDW (11.5-15.5) % Plt Count (150-450) k/uL MPV Neutrophils % % Lymphocytes % % Monocytes % % Eosinophils % % Basophils % % Neutrophils # (1.3-7.7) k/uL Lymphocytes # (1.0-4.8) k/uL Monocytes # (0-1.0) k/uL Eosinophils # (0-0.7) k/uL Basophils # (0-0.2) k/uL PT (9.0-12.0) sec INR (<1.2) APTT (22.0-30.0) sec Sodium (137-145) mmol/L Potassium (3.5-5.1) mmol/L Chloride (98-107) mmol/L Carbon Dioxide (22-30) mmol/L Anion Gap mmol/L BUN (9-20) mg/dL Creatinine (0.66-1.25) mg/dL Est GFR (CKD-EPI)AfAm (>60 ml/min/1.73 sqM) Est GFR (CKD-EPI)NonAf (>60 ml/min/1.73 sqM) Glucose (74-99) mg/dL Calcium (8.4-10.2) mg/dL Magnesium (1.6-2.3) mg/dL Total Bilirubin (0.2-1.3) mg/dL AST (17-59) U/L ALT (4-49) U/L Alkaline Phosphatase (38-126) U/L Troponin I <0.012 (0.000-0.034) ng/mL Total Protein (6.3-8.2) g/dL Albumin (3.5-5.0) g/dL - Radiology Data Radiology results: report reviewed (Chest x-ray: Mild pulmonary fibrosis. No heart failure or pulmonary consolidation. No change compared to last exam.) Disposition Clinical Impression: Left sided numbness Disposition: ADMITTED IP TO THIS [facility] Condition: Stable Is patient prescribed a controlled substance at d/c from ED?: No Time of Disposition: 19:33
[2021-08-14 17:34] LABS: Basophils % (A) 1 %; Eosinophils # (A) 0.1 k/uL (0-0.7); Eosinophils % (A) 1 %; HCT 42.9 % (39.0-53.0); HGB 14.2 gm/dL (13.0-17.5); Lymphocytes # (A) 0.8 k/uL (1.0-4.8); Lymphocytes % (A) 11 %; MCH 29.5 pg (25.0-35.0); MCHC 33.2 g/dL (31.0-37.0); MCV 88.7 fL (80.0-100.0); Mean Platelet Volume 7.7; Monocytes # (A) 0.4 k/uL (0-1.0); Monocytes % (A) 5 %; Neutrophils # (A) 6.3 k/uL (1.3-7.7); Neutrophils % (A) 82 %; Platelet Count 210 k/uL (150-450); RBC 4.84 m/uL (4.30-5.90); RDW 14.8 % (11.5-15.5); WBC 7.7 k/uL (3.8-10.6)
[2021-08-14 17:43] LABS: Albumin 3.7 g/dL (3.5-5.0); Calcium 9.6 mg/dL (8.4-10.2); Magnesium 1.6 mg/dL (1.6-2.3); Potassium 4.7 mmol/L (3.5-5.1); Total Bilirubin 0.4 mg/dL (0.2-1.3); Total Protein 6.4 g/dL (6.3-8.2)
--- NOTE | 2021-08-14 17:43 | XR ---
EXAMINATION TYPE: XR chest 1V portable DATE OF EXAM: 08/14/2021 COMPARISON: 08/06/2021 HISTORY: Short of breath TECHNIQUE: Single view FINDINGS: Heart appears slightly enlarged. There is no heart failure. There is some coarsening of int erstitial markings. There is bilateral shoulder prosthesis. IMPRESSION: Mild pulmonary fibrosis. No heart failure or pulmonary consolidation. No change compared to last exam.
[2021-08-14 17:56] LABS: Prothrombin Time 10.8 sec (9.0-12.0)
[2021-08-14] MEDS ORDERED: ALBUTEROL NEBULIZED 2.5 MG/3 ML INHALATION PRN (19:31)
[2021-08-14] MEDS ORDERED: NON FORMULARY DRUG (Potassium Gluconate [Potassium Gluconate Er] 99 MG Tablet) PO SCH (21:00)
[2021-08-14] MEDS: METOPROLOL TARTRATE 25 MG TAB PO SCH (22:42)
[2021-08-14] MEDS: ASPIRIN 81 MG PO SCH (22:44)
[2021-08-14] MEDS: amLODIPine 5 MG TAB PO SCH (22:45)
[2021-08-14] MEDS: RIVAROXABAN 15 MG TAB PO SCH (22:45)
[2021-08-15] MEDS: LEVOTHYROXINE 50 MCG TAB PO SCH (05:54)
[2021-08-15] MEDS: FUROSEMIDE 20 MG TAB PO SCH (09:02)
[2021-08-15] MEDS: METOPROLOL TARTRATE 25 MG TAB PO SCH (09:03)
[2021-08-15] MEDS: FLUoxetine HCL 20 MG CAP PO SCH (09:03)
[2021-08-15] MEDS: LOSARTAN 50 MG TAB PO SCH (09:03)
[2021-08-15 12:23] LABS: HCT 42.6 % (39.6-50.0); HGB 13.7 g/dL (13.0-17.0); MCH 28.5 pg (27.0-32.0); MCHC 32.2 g/dL (32.0-37.0); MCV 88.8 fL (80.0-97.0); Mean Platelet Volume 10.5 fL (9.5-12.2); Platelet Count 215 X 10*3/uL (140-440); RDW 15.4 % (11.5-14.5); WBC 8.19 X 10*3/uL (4.50-10.00)
[2021-08-15 13:06] LABS: African American GFR (CKD) 64.4 (60.0-200.0); Albumin 3.8 g/dL (3.8-4.9); Albumin/Globulin Ratio 1.72 (1.60-3.17); Anion Gap 12.7 mmol/L (10.00-18.00); Blood Urea Nitrogen 27.6 mg/dL (9.0-27.0); Calcium 10.1 mg/dL (8.7-10.3); Carbon Dioxide 21.9 mmol/L (20.0-27.5); Globulin 2.2 g/dL (1.6-3.3); Non-African American GFR(CKD) 55.6 (60.0-200.0); Potassium 5.1 mmol/L (3.5-5.5); Total Bilirubin 0.3 mg/dL (0.30-1.20)
[2021-08-15 13:20] LABS: Basophils # (M) 0 X 10*3/uL (0.00-0.10); Eosinophils # (M) 0 X 10*3/uL (0.04-0.35); Lymphocytes # (M) 0.41 X 10*3/uL (0.90-5.00); Monocytes # (M) 0.74 X 10*3/uL (0.20-1.00); Myelocytes % 8 % (0-0); Neutrophils # (M) 6.39 X 10*3/uL (2.00-8.90); Neutrophils % (M) 78 %
[2021-08-15] MEDS: CHOLECALCIFEROL 25 MCG (1000 IU) TABLET PO SCH (15:08)
[2021-08-15] MEDS: FOLIC ACID 1 MG TAB PO SCH (15:09)
--- NOTE | 2021-08-15 15:26 | CT ---
EXAMINATION TYPE: CT angio head neck DATE OF EXAM: 08/15/2021 COMPARISON: None HISTORY: Left side numbness. CT DLP: 541.5 mGycm Automated exposure control for dose reduction was used. CONTRAST: Performed with IV Contrast, patient injected with 65ml mL of Isovue 370. Images obtained from the aortic arch to the vertex of the brain with IV contrast. There are 3-D post processed images. There is normal branching pattern of the great vessels on the aortic arch. There is bilateral arteria l flow in the subclavian arteries. There is arterial flow in the common internal and external carotid arteries bilaterally. There is moderate plaque at the right carotid artery bifurcation and 70 % sten osis of the proximal right internal carotid artery. There is plaque formation at the left carotid art joe bifurcation with approximate 30% stenosis of the origin of the left internal carotid artery. Ther e is arterial flow in both vertebral arteries. There is arterial flow in the vertebrobasilar artery system. There is no evidence of carotid or verte bral artery aneurysm or dissection. There is arterial flow in the anterior middle and posterior cerebral arteries. There is no mass effec t. There is no evidence of intracranial aneurysm or neovascularity. There is normal enhancement of t he venous sinuses. There is some stenosis of the distal left vertebral artery at the junction with th e basilar artery. 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 There is approximate 50% stenosis of the distal left vertebral artery.
--- NOTE | 2021-08-15 15:49 | P.HPIM ---
History of Present Illness H&P Date: 08/15/21 Chief Complaint: Numbness on the left side Chief Complaint: Short of breath History present complaint: This is a pleasant 81-year-old patient of Dr. Roxie Melnedez. Chronic stable medical conditions include coronary artery disease, CHF with EF of 50-65%, moderate aortic stenosis with sclerosis, atrial fibrillation, COPD, GERD, hyperlipidemia, hypertension, primary osteoarthritis,(s) sleep apnea, hypothyroid. 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 treated with chemotherapy -being followed with Dr. Rutherford. last chemotherapy in October 2019 History of Demetra fundoplication, has had small bowel obstruction with resection colostomy and reversal of the same. prostate cancer treated with radiation.. Bronchoscopy in March 2021 negative for malignant cells. has received both his COVID vaccine and received a booster shot . On July 26 patient was diagnosed with COVID 19. One week later he did Monoclonal antibodies. Patient was recently in the hospital from August 06 through August 08. Admitted with paroxysmal atrial fibrillation, COVID 19 pneumonitis, pharyngeal candidiasis, acute COPD exacerbation. Was doing rather well by the time of discharge. Patient now presents that every time he walks he gets numbness on the left side of the face left arm left leg up to the knee. Only occurs with activity. His appetite is fair. No neck pain. No headache. Patient is chronically lightheaded. Denies any fever and chills. Neurology was consulted. Review of systems: GEN.: tired, EYES: None HEENT: Chronic dizziness NECK: None RESPIRATORY: Some cough CARDIOVASCULAR: As above GASTROINTESTINAL: As above GENITOURINARY: None MUSCULOSKELETAL: Some joint pains LYMPHATICS: None HEMATOLOGICAL: None PSYCHIATRY: None NEUROLOGICAL: None Past medical history: Include Coronary artery disease with stent , stage IV adenocarcinoma of the lung on chemotherapy-last time in October 2019, history of Demetra fundoplication, COPD in an ex-smoker, hypothyroidism, essential hypertension, hyperlipidemia, obstructive sleep apnea, CHF with diastolic dysfunction, moderate aortic stenosis with sclerosis. January 2020 - GI bleed. EGD was unremarkable. Bronchomalacia, atrial fibrillation Social history: . Smoked from age of 14 through 1982 . alcohol occasionally. Retired. Family history: sister had rectal cancer Physical examination: VITAL SIGNS: 97, 51, 18, 140/97, 98% on room air upon presentation GENERAL: BMI 27 reclining in bed, tired, EYES: Pupils equal. Conjunctiva normal. HEENT: External appearance of nose and ears normal, oral cavity normal. NECK: JVD not raised; masses not palpable. HEART: First and second heart sounds are normal; no edema. LUNGS: Respiratory rate increased, decreased breath sounds. ABDOMEN: Soft, distended, , liver spleen not palpable, no masses palpable. PSYCH: Alert and oriented x3; mood and affect anxious NEUROLOGICAL: Cranial nerves grossly intact; no facial asymmetry, power and sensation grossly intact. LYMPHATICS: No lymph nodes palpable in the axilla and neck INVESTIGATIONS, reviewed in the clinical context: White count 8.1 hemoglobin 13.7 platelets 215 potassium 5.1 BUN 27.6 creatinine 1.2 Coronavirus [PCR]: Detected EKG tracing personally reviewed by me-normal sinus rhythm, rate 50 Chest x-ray film personally reviewed by me: coarse interstitial CT angiogram of the neck: 70% stenosis origin right internal carotid artery and 30 (stenosis origin left internal carotid artery. 50% stenosis of distal left vertebral artery. Assessment and plan: -This is a patient who presents with numbness on the left side of the body only with activity. Denies any neck pain. No headache. No fever no chills. Your checks. Neurology consulted. -Paroxysmal atrial fibrillation, currently in sinus rhythm Lopressor 25 mg by mouth twice a day. Xarelto 15 mg daily at bedtime -Asymptomatic COVID 19 (patient was recently COVID positive. Received antibodies. Currently no active COVID symptoms. Follow clinically - COPD exacerbation in an ex smoker., Better Symbicort 80/4.52 puffs twice a day. Atrovent 4 times a day. Ventolin when necessary -Chronic tracheal bronchomalacia -Colonic diverticulosis, asymptomatic - Demetra fundoplication, -Coronary artery disease with a prior history of stent Aspirin, Lopressor, -Stage IV adenocarcinoma of the lung received chemotherapy. Patient is due for his PET scan. -Hypothyroidism Synthroid 50 g daily -Essential hypertension Cozaar 50 mg daily, Lopressor 12.5 twice a day -Obstructive sleep apnea -Chronic congestive heart failure from diastolic dysfunction EF 50-60%. Stable Lasix 20 mg daily -Moderate aortic stenosis with sclerosis nonrheumatic Follow clinically -Primary osteoarthritis multiple joints Use. Medications as needed -Chronic kidney disease. 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 Follow clinically -70% stenosis origin right ICA. Home medications resumed. Neurology consulted. Neuro checks. Care was discussed with the patient. Follow discussed with patient. Past Medical History Past Medical History: Atrial Fibrillation, Asthma, Coronary Artery Disease (CAD), Cancer, COPD, CVA/TIA, GERD/Reflux, Hearing Disorder / Deafness, Hyperlipidemia, Hypertension, Pneumonia, Respiratory Disorder, Sleep Apnea/CPAP/BIPAP, Thyroid Disorder Additional Past Medical History / Comment(s): Lung Cancer in remission, cond stable, currently tx on hold, last chemo was in November/2019, diverticular disease, hx SBO w/ resection/colostomy/reversal, prostate cancer w/ radiation tx, skin cancer removed from face, hypothyroid. Hearing aids. Aortic stenosis. 3 spots on brain that had radiation tx. cvax3 early june 2021. History of Any Multi-Drug Resistant Organisms: None Reported Past Surgical History: Bowel Resection, Heart Catheterization, Heart Catheterization With Stent, Orthopedic Surgery, Tonsillectomy Additional Past Surgical History / Comment(s): 01/07/19 bronchoscopy w/ BAL, past bronchoscopies/bx, PCI with stent 2006, bilat reconstructive ear surgery/gland removed under jaw, bowel resection d/t rupture with colostomy later reversed, L cataract removal, demetra fundoloplasty, bilat total shoulders/knees, L knee arthroscopy x 2, EGD, colonoscopy, prostate bx, bilat exciscion gynecomastia, skin cancer removals. Heart cath, ALEA 07/06/20 Past Anesthesia/Blood Transfusion Reactions: No Reported Reaction, Motion Sickness Date of Last Stent Placement:: 2006 Past Psychological History: No Psychological Hx Reported Additional Psychological History / Comment(s): Pt resides with his spouse. He has a nebulizer. He drives. Smoking Status: Former smoker Past Alcohol Use History: None Reported Additional Past Alcohol Use History / Comment(s): SMOKED OCCASIONAL CIGAR. STARTED SMOKING AT AGE 14, SMOKED TILL 1982 Past Drug Use History: None Reported - Past Family History Mother Family Medical History: Cancer Additional Family Medical History / Comment(s): MULTIPLE MYLOMA Father Family Medical History: Cancer Additional Family Medical History / Comment(s): LUNG CANCER Sister(s) Family Medical History: Cancer Additional Family Medical History / Comment(s): sister had rectal cancer. Son(s) Family Medical History: Cancer Additional Family Medical History / Comment(s): Son has hodgkins lymphoma Medications and Allergies Home Medications Medication Instructions Recorded Confirmed Type FLUoxetine HCL [PROzac] 20 mg PO DAILY 08/05/14 08/14/21 History Levothyroxine Sodium [Synthroid] 50 mcg PO DAILY 08/05/14 08/14/21 History Omeprazole [PriLOSEC] 40 mg PO HS 08/05/14 08/14/21 History Folic Acid 1 mg PO DAILY 02/12/18 08/14/21 History Fluticasone/Umeclidin/Vilanter 1 puff INHALATION RT-DAILY 11/18/19 08/14/21 History [Trelegy Ellipta 100-62.5-25] L.acidoph,Paracasei, B.lactis 1 cap PO HS 03/01/20 08/14/21 History [Probiotic] Montelukast Sodium [Singulair] 10 mg PO HS 04/05/20 08/14/21 History Losartan Potassium 50 mg PO DAILY 06/11/20 08/14/21 History Furosemide [Lasix] 20 mg PO DAILY 06/30/20 08/14/21 History Cholecalciferol [Vitamin D3 (25 25 mcg PO DAILY 04/12/21 08/14/21 History Mcg = 1000 Iu)] Aspirin EC [Ecotrin Low Dose] 162 mg PO HS 08/06/21 08/14/21 History Potassium Gluconate [Potassium 99 mg PO HS 08/06/21 08/14/21 History Gluconate ER] Rivaroxaban [Xarelto] 15 mg PO HS 08/06/21 08/14/21 History amLODIPine [Norvasc] 7.5 mg PO HS 08/06/21 08/14/21 History Albuterol Inhaler [Ventolin Hfa 2 puff INHALATION RT-QID PRN #1 gm 08/08/21 08/14/21 Rx Inhaler] Metoprolol Tartrate [Lopressor] 25 mg PO BID #90 tab 08/08/21 08/14/21 Rx Allergies Allergy/AdvReac Type Severity Reaction Status Date / Time No Known Allergies Allergy Verified 08/14/21 17:03 Physical Exam Vitals: Vital Signs Temp Pulse Pulse Resp BP BP Pulse Ox 08/15/21 07:00 97.7 F 50 L 18 175/94 95 08/15/21 01:24 97.4 F L 49 L 19 155/97 96 08/14/21 22:12 97.5 F L 50 L 18 161/93 95 08/14/21 20:33 55 L 16 160/88 97 08/14/21 18:26 56 L 20 144/97 98 08/14/21 16:17 97.0 F L 51 L 18 167/93 98 Intake and Output 08/14/21 08/15/21 08/15/21 22:59 06:59 14:59 Output Total 950 125 Balance -950 -125 Output: Urine 950 125 Other: # Voids 0 0 Weight 90.265 kg Results CBC & Chem 7: 08/15/21 06:25 08/15/21 06:25 Labs: Abnormal Lab Results - Last 24 Hours (Table) 08/14/21 08/14/21 08/14/21 Range/Units 17:23 17:23 20:32 RDW (11.5-14.5) % Myelocytes % (0-0) % Lymphocytes # 0.8 L (1.0-4.8) k/uL Lymphocytes # (Manual) (0.90-5.00) X 10*3/uL Eosinophils # (Manual) (0.04-0.35) X 10*3/uL Sodium 131 L (137-145) mmol/L Carbon Dioxide 21 L (22-30) mmol/L BUN 36 H (9-20) mg/dL Creatinine 1.29 H (0.66-1.25) mg/dL Est GFR (CKD-EPI)NonAf (60.0-200.0) BUN/Creatinine Ratio (12.00-20.00) Ratio Glucose 142 H (74-99) mg/dL AST (14-35) U/L ALT (10-49) U/L Total Protein (6.2-8.2) g/dL Coronavirus (PCR) Detected A (Not Detectd) 08/15/21 08/15/21 Range/Units 06:25 06:25 RDW 15.4 H (11.5-14.5) % Myelocytes % 8 H (0-0) % Lymphocytes # (1.0-4.8) k/uL Lymphocytes # (Manual) 0.41 L (0.90-5.00) X 10*3/uL Eosinophils # (Manual) 0 L (0.04-0.35) X 10*3/uL Sodium (137-145) mmol/L Carbon Dioxide (22-30) mmol/L BUN 27.6 H (9-20) mg/dL Creatinine (0.66-1.25) mg/dL Est GFR (CKD-EPI)NonAf 55.6 L (60.0-200.0) BUN/Creatinine Ratio 23.00 H (12.00-20.00) Ratio Glucose (74-99) mg/dL AST 11 L (14-35) U/L ALT 9 L (10-49) U/L Total Protein 6.0 L (6.2-8.2) g/dL Coronavirus (PCR) (Not Detectd) Thrombosis Risk Factor Assmnt - Choose All That Apply Any of the Below Risk Factors Present?: Yes Each Factor Represents 1 point: Abnormal pulmonary function (COPD), Obesity (BMI >25) Other Risk Factors: Yes Each Risk Factor Represents 2 Points: Malignancy Each Risk Factor Represents 3 Points: Age 75 years or older Other congenital or acquired thrombophilia - If yes, enter type in comment: No Thrombosis Risk Factor Assessment Total Risk Factor Score: 7 Thrombosis Risk Factor Assessment Level: High Risk
[2021-08-15] MEDS ORDERED: LORazepam 0.5 MG TAB PO PRN (15:50)
[2021-08-15] MEDS ORDERED: LACTULOSE 20 GM/30 ML CUP PO PRN (15:50)
[2021-08-15] MEDS ORDERED: NALOXONE 0.4 MG/ML 1 ML VIAL IV PRN (15:50)
[2021-08-15] MEDS ORDERED: ACETAMINOPHEN TAB 325 MG TAB PO PRN (15:50)
[2021-08-15] MEDS ORDERED: CALCIUM CARBONATE 500 MG CHEWABLE PO PRN (15:50)
[2021-08-15] MEDS ORDERED: MELATONIN 3 MG TABLET PO PRN (15:50)
[2021-08-15] MEDS ORDERED: ONDANSETRON 4 MG/2 ML VIAL IVP PRN (15:50)
--- NOTE | 2021-08-15 16:16 | P.CNNES ---
History of Present Illness Consult date: 08/15/21 Requesting physician: Isidoro Nina Reason for Consult: Left-sided numbness History of Present Illness: This is a telemedicine neurology consultation performed today on 08/15/2021. Patient is a 81-year-old male came to the hospital by ambulance yesterday at 4:15 PM for recurrent positional episodes of numbness of the left side of the body, including face, arm and leg, but excluding the lower leg from knee down to the foot. Patient states that the symptoms started about 5 days ago. Whenever he gets up and walk, the left side as mentioned above gets numb. This is happening on a consistent basis, and occurs instantly or about couple minutes after he is up on his feet. The symptoms stays as long as he is up on the feet. The symptoms goes away when he sits down or lays down. Patient denies any associated droopy face, focal weakness. Patient states that at this time he does feel slight tingling of the left side of his cheek. Patient states that he had couple strokes in early June when he was in [facility]. It involved bilateral hemispheric region. He was told that it may be related to Covid infection. Patient states that initially he developed numbness of the right thumb and index finger about a week ago. It went away, but then he started having symptoms on the left side. He had an MRI of the brain performed as an outpatient yesterday, initiated by his radiation oncologist to follow-up on his cerebellar lesion. However as the symptoms persisted he decided to come to the ER. Patient has an appointment with Dr. Ernst at 9 AM tomorrow as outpatient. Patient states that he also has an appointment with Dr. Jackson on , 08/19/2021 at 2:30 PM by telemedicine. This appointment is to follow up on the strokes that he had in [facility]. Patient's blood pressure at the scene was 155/89, pulse rate 65, respirations 16, saturation 95%. EKG shows sinus bradycardia in the 50. Chest x-ray shows mild pulmonary fibrosis. No heart failure or pulmonary consolidation. Patient states that he has been dizzy for years. He always feels loopy. He believes it is from changing in his blood pressure medications. Patient has history of atrial fibrillation currently on aspirin 162 mg and Xarelto. Patient states he had stent placed in the heart in August 2020. Patient has smoked 2 packs per day for 30 years, quit in 1983. Nor he occasionally smokes cigars. P josselyn states that he used to be on Plavix for a long time along with Xarelto, but was recommended to stop taking it 3 months ago because he was bruising fairly bad. When he developed Covid-19 recently, he was started on aspirin 162 mg. Patient was seen by myself on 11/19/2019 for possible third nerve palsy. Patient was diagnosed with acute third nerve palsy. MRI of the brain was negative at that time. Patient was diagnosed with atrial fibrillation at that time, and started on Eliquis. MRI of the brain was negative. MRA of the brain showed no evidence of aneurysm. Mild to moderate atherosclerotic narrowing involving a 9 mm long span of V4 segment left vertebral artery. Patient's MRI of the brain with and without contrast on 08/13/2021 revealed partial positive treatment response. It revealed punctate 2 mm enhancing focus central right cerebellar hemisphere is decrease in size from prior study. Enhancing lesion left posterior perimesencephalic cistern level measures 6 x 4 mm current study, decreased in size from prior study near the marked superior anterior aspect of the left cerebellum. No definitive new enhancing lesions. Review of Systems As mentioned in HPI. All other review of systems reviewed and noncontributory. Denies any abdominal pain nausea vomiting diarrhea. Denies any chest pain, shortness of breath wheezing or cough. Denies any fever or chills. Past Medical History Past Medical History: Atrial Fibrillation, Asthma, Coronary Artery Disease (CAD), Cancer, COPD, CVA/TIA, GERD/Reflux, Hearing Disorder / Deafness, Hyperlipidemia, Hypertension, Pneumonia, Respiratory Disorder, Sleep Apnea/CPAP/BIPAP, Thyroid Disorder Additional Past Medical History / Comment(s): Lung Cancer in remission, cond stable, currently tx on hold, last chemo was in November/2019, diverticular disease, hx SBO w/ resection/colostomy/reversal, prostate cancer w/ radiation tx, skin cancer removed from face, hypothyroid. Hearing aids. Aortic stenosis. 3 spots on brain that had radiation tx. cvax3 early june 2021. History of Any Multi-Drug Resistant Organisms: None Reported Past Surgical History: Bowel Resection, Heart Catheterization, Heart Catheterization With Stent, Orthopedic Surgery, Tonsillectomy Additional Past Surgical History / Comment(s): 01/07/19 bronchoscopy w/ BAL, past bronchoscopies/bx, PCI with stent 2006, bilat reconstructive ear surgery/gland removed under jaw, bowel resection d/t rupture with colostomy later reversed, L cataract removal, demetra fundoloplasty, bilat total shoulders/knees, L knee arthroscopy x 2, EGD, colonoscopy, prostate bx, bilat exciscion gynecomastia, sk in cancer removals. Heart cath, ALEA 07/06/20 Past Anesthesia/Blood Transfusion Reactions: No Reported Reaction, Motion Sickness Date of Last Stent Placement:: 2006 Past Psychological History: No Psychological Hx Reported Additional Psychological History / Comment(s): Pt resides with his spouse. He mae s a nebulizer. He drives. Smoking Status: Former smoker Past Alcohol Use History: None Reported Additional Past Alcohol Use History / Comment(s): SMOKED OCCASIONAL CIGAR. STARTED SMOKING AT AGE 14, SMOKED TILL 1982 Past Drug Use History: None Reported - Past Family History Mother Family Medical History: Cancer Additional Family Medical History / Comment(s): MULTIPLE MYLOMA Father Family Medical History: Cancer Additional Family Medical History / Comment(s): LUNG CANCER Sister(s) Family Medical History: Cancer Additional Family Medical History / Comment(s): sister had rectal cancer. Son(s) Family Medical History: Cancer Additional Family Medical History / Comment(s): Son has hodgkins lymphoma Medications and Allergies Home Medications Medication Instructions Recorded Confirmed Type FLUoxetine HCL [PROzac] 20 mg PO DAILY 08/05/14 08/14/21 History Levothyroxine Sodium [Synthroid] 50 mcg PO DAILY 08/05/14 08/14/21 History Omeprazole [PriLOSEC] 40 mg PO HS 08/05/14 08/14/21 History Folic Acid 1 mg PO DAILY 02/12/18 08/14/21 History Fluticasone/Umeclidin/Vilanter 1 puff INHALATION RT-DAILY 11/18/19 08/14/21 History [Trelegy Ellipta 100-62.5-25] L.acidoph,Paracasei, B.lactis 1 cap PO HS 03/01/20 08/14/21 History [Probiotic] Montelukast Sodium [Singulair] 10 mg PO HS 04/05/20 08/14/21 History Losartan Potassium 50 mg PO DAILY 06/11/20 08/14/21 History Furosemide [Lasix] 20 mg PO DAILY 06/30/20 08/14/21 History Cholecalciferol [Vitamin D3 (25 25 mcg PO DAILY 04/12/21 08/14/21 History Mcg = 1000 Iu)] Aspirin EC [Ecotrin Low Dose] 162 mg PO HS 08/06/21 08/14/21 History Potassium Gluconate [Potassium 99 mg PO HS 08/06/21 08/14/21 History Gluconate ER] Rivaroxaban [Xarelto] 15 mg PO HS 08/06/21 08/14/21 History amLODIPine [Norvasc] 7.5 mg PO HS 08/06/21 08/14/21 History Albuterol Inhaler [Ventolin Hfa 2 puff INHALATION RT-QID PRN #1 gm 08/08/21 08/14/21 Rx Inhaler] Metoprolol Tartrate [Lopressor] 25 mg PO BID #90 tab 08/08/21 08/14/21 Rx Allergies Allergy/AdvReac Type Severity Reaction Status Date / Time No Known Allergies Allergy Verified 08/14/21 17:03 Physical Examination - Vital Signs Vital Signs: Vital Signs Temp Pulse Pulse Resp BP BP Pulse Ox 08/15/21 07:00 97.7 F 50 L 18 175/94 95 08/15/21 01:24 97.4 F L 49 L 19 155/97 96 08/14/21 22:12 97.5 F L 50 L 18 161/93 95 08/14/21 20:33 55 L 16 160/88 97 08/14/21 18:26 56 L 20 144/97 98 08/14/21 16:17 97.0 F L 51 L 18 167/93 98 Intake and Output 08/14/21 08/15/21 08/15/21 22:59 06:59 14:59 Output Total 950 Balance -950 Output: Urine 950 Other: # Voids 0 0 Weight 90.265 kg Patient is an elderly male, in no acute distress. Patient is alert awake oriented to time place and person. Speech and language functions are normal. Attention, concentration and fund of knowledge is adequate. On cranial examination, patient's right pupil is smaller, 3 mm and the left pupil is 5 mm, both reactive. Patient's visual li are full on confrontation, extraocular muscles are intact with no nystagmus. Face is symmet daniel, tongue protrudes to the midline. Palatal elevation and sensation normal, hearing and shoulder shrug normal, facial sensation normal. Shoulder shrug normal. On muscle strength testing, there is right-sided pronation, but no drift. His strength is normal in arms and legs distally and proximally. Deep tendon reflexes are 1 in the upper limbs, trace at the knees, and plantars downgoing bilaterally. Sensory to touch is equal with no neglect. Cerebellar function revealed ataxia for [id number] testing, left more than right. Mild ataxia for [id number] testing on the left. Tone and bulk of muscles normal. Gait deferred. On general examination, there is no carotid bruit or murmur, S1-S2 audible. Abdomen is soft nontender. Chest is clear. Peripheral pulses are present. No edema. Results - Laboratory Findings CBC and BMP: 08/15/21 06:25 08/15/21 06:25 Abnormal Lab Findings: Abnormal Labs 08/14/21 08/14/21 08/14/21 17:23 17:23 20:32 Lymphocytes # 0.8 L Sodium 131 L Carbon Dioxide 21 L BUN 36 H Creatinine 1.29 H Glucose 142 H Coronavirus (PCR) Detected A Assessment and Plan Assessment: * Recurrent focal of numbness of left side of the body including face, arm and leg, (but excluding left knee down to the foot), occurring in relation to standing up and walking, and resolving after patient sits or lays down in bed. Symptoms are unilateral, suggestive of possible central ischemia. Rule out extracranial or intracranial vascular stenosis. Patient's previous MRA of the head from 11/19/2019 revealed mild to moderate atherosclerotic narrowing involving a 9 mm long segment of V4 segment left vertebral artery. * Atrial fibrillation on anticoagulation * History of lung cancer with cerebellar metastasis, status post radiation, currently in remission. * Acute, current Covid-19 infection * Coronary artery disease, history of cardiac stenting * COPD * X tobacco use * Hypertension * Hyperlipidemia * Obstructive sleep apnea Plan: * CTA of head and neck to evaluate for intracranial or extracranial vascular stenosis. * Consider switching from aspirin to Plavix. * Continue Xarelto. * Patient's lipid panel from 04/13/2021 shows cholesterol 125, LDL 51, HDL 28 and triglycerides 228. We will start Lipitor 40 mg daily. * Check hemoglobin A1c. * Last 2-D echo from 04/13/2021 shows normal left-ventricular size, moderate concentric LVH, EF is between 60-65%. Global wall thickness of the right ventricle. TAVR procedure done. No need to repeat echo. * Patient does have an appointment with Dr. Jackson on 08/19/2021 to follow-up on his recent strokes. * Patient to follow up with radiation oncologist regarding his MRI of the brain results showing residual metastatic lesions. Addendum: CTA of head and neck reported as 70% stenosis or region right ICA and 30% stenos is origin left ICA. There is approximate 50% stenosis of the distal left vertebral artery. We will initiate vascular surgery consultation. Dr. Shashank Aguilar Will resume neurology service from the morning.
[2021-08-15] MEDS ORDERED: IPRATROPIUM 0.5 MG/2.5 ML NEBU INHALATION SCH (20:00)
[2021-08-15] MEDS: SYMBICORT 80-4.5 MCG INHALER INHALATION SCH ×2 (20:19→20:29)
[2021-08-15] MEDS ORDERED: ALBUTEROL HFA INHALER INHALATION PRN (20:20)
[2021-08-15] MEDS: TIOTROPIUM 2.5 MCG INHALER INHALATION SCH ×2 (20:27→20:34)
[2021-08-15] MEDS: LACTOBACILLUS ACIDOPH & BULGAR 1 EACH PACKET PO SCH (21:08)
[2021-08-15] MEDS: PANTOPRAZOLE 40 MG TABLET PO SCH (21:10)
[2021-08-15] MEDS: ATORVASTATIN 40 MG TAB PO SCH (21:10)
[2021-08-15] MEDS: MONTELUKAST 10 MG TAB PO SCH (21:10)
[2021-08-15] MEDS: ASPIRIN 81 MG PO SCH (21:10)
[2021-08-15] MEDS: RIVAROXABAN 15 MG TAB PO SCH (21:10)
[2021-08-15] MEDS: amLODIPine 5 MG TAB PO SCH (21:10)
[2021-08-16] MEDS: METOPROLOL TARTRATE 25 MG TAB PO SCH ×2 (00:51→07:33)
[2021-08-16] MEDS: LEVOTHYROXINE 50 MCG TAB PO SCH (05:44)
[2021-08-16] MEDS: LOSARTAN 50 MG TAB PO SCH (07:32)
[2021-08-16] MEDS: CHOLECALCIFEROL 25 MCG (1000 IU) TABLET PO SCH (07:32)
[2021-08-16] MEDS: FUROSEMIDE 20 MG TAB PO SCH (07:33)
[2021-08-16] MEDS: FLUoxetine HCL 20 MG CAP PO SCH (07:33)
[2021-08-16] MEDS: FOLIC ACID 1 MG TAB PO SCH (07:33)
[2021-08-16] MEDS: SYMBICORT 80-4.5 MCG INHALER INHALATION SCH ×2 (08:31→19:36)
[2021-08-16] MEDS: TIOTROPIUM 2.5 MCG INHALER INHALATION SCH (08:31)
--- NOTE | 2021-08-16 09:54 | US ---
EXAMINATION TYPE: US carotid duplex BILAT DATE OF EXAM: 08/16/2021 COMPARISON: 11/19/2019 CLINICAL HISTORY: 81-year-old male left sided weakness, numbness. TECHNIQUE: Carotid duplex ultrasound examination. Indirect Doppler criteria is utilized. FINDINGS: EXAM MEASUREMENTS: RIGHT: Peak Systolic Velocity (PSV) cm/sec ----- Right CCA: 50.5 ----- Right ICA: 132.3 ----- Right ECA: 137.1 ICA/CCA ratio: 2.6 RIGHT: End Diastole cm/sec ----- Right CCA: 10.6 ----- Right ICA: 24.1 ----- Right ECA: 0.0 LEFT: Peak Systolic Velocity (PSV) cm/sec ----- Left CCA: 47.6 ----- Left ICA: 54.7 ----- Left ECA: 97.7 ICA/CCA ratio: 1.1 LEFT: End Diastole cm/sec ----- Left CCA: 8.5 ----- Left ICA: 12.0 ----- Left ECA: 0.0 VERTEBRALS (direction of flow): Right Vertebral: Antegrade Left Vertebral: Antegrade Rhythm: Arrhythmia Rail Doweling Machine Operator notes: Mild atherosclerotic changes to right CCA as visualized on prior US, otherwise arr hythmia noted bilaterally IMPRESSION: 1. Slight increased peak systolic velocity and ICA/CCA ratio proximal right ICA could reflect a moder ate (50-69%) stenosis. 2. The hand printed circuit board assembler indicates arrhythmia during the exam. Clinically correlate. Criteria for Assigning % of Stenosis / Diameter reduction (Estimation based on the indirect measurements of the internal carotid artery velocities (ICA PSV). 1. Normal (no stenosis)=ICA PSV < 125 cm/s: ratio < 2.0: ICA EDV<40 cm/s. 2. Less than 50% stenosis=ICA PSV < 125 cm/s: ratio < 2.0: ICA EDV<40 cm/s. 3. 50 to 69% stenosis=ICA PSV of 125 to 230 cm/s: ratio 2.0 ? 4.0: ICA EDV 40-100 cm/s. 4. Greater than 70% stenosis to near occlusion= ICA PSV > 230 cm/s: ratio > 4.0: ICA EDV > 100 cm/s. 5. Near occlusion= ICA PSV velocities may be low or undetectable: variable ratio and ICA EDV. 6. Total occlusion=unable to detect flow.
--- NOTE | 2021-08-16 10:02 | P.CRDCN ---
History of Present Illness Consult date: 08/16/21 History of present illness: CHIEF COMPLAINT: A. fib with RVR HISTORY OF PRESENT ILLNESS: This is a 81-year-old male with a past medical history significant for TIA, lung cancer with mets, coronary artery disease with previous stenting of the RCA and diagonal branch, aortic stenosis with previous TAVR, hypertension, hyperlipidemia, and paroxysmal atrial fibrillation. Patient follows in the office with Dr. Kong. We have been asked to see the patient in consultation for afib with RVR. Patient was recently in the hospital earlier this month for Covid and SOB. Patient presented back to the hospital with complaints of left sided weakness. The patient tested positive for Covid upon admission. Telemetry reveals atrial fibrillation with a heart rate around 110- 115. Nursing reports his metoprolol was held last night but he received his dose this morning. DIAGNOSTICS: EKG reveals sinus bradycardia with a heart rate of 50. Chest xray mild pulmonary fibrosis. No heart failure or pulmonary consolidat ion. CT angiogram head and neck: 70% stenosis right internal carotid artery and 30% stenosis left internal carotid artery. There is approximately 50% stenosis of the distal left vertebral artery. Echocardiogram obtained in March 2021 revealed ejection fraction 60-65%, normally functioning bioprosthetic valve Laboratory data: WBC 8.19. Hemoglobin 13.7. Platelet count 215. Sodium 135. Potassium 5.1. BUN 27. Creatinine 1.2. Magnesium 1.6. Troponin negative 1. Current home cardiac medications include amlodipine 7.5 mg at night, Xarelto 15 mg at night, metoprolol titrate 25 mg twice a day, losartan 50 mg daily, aspirin 162 mg at night, Lasix 20 mg daily REVIEW OF SYSTEMS: Thorough review of systems not completed secondary to limited evaluation/examination due to Covid19 PHYSICAL EXAM: Thorough physical exam not completed secondary to limited evaluation/examination due to Covid19 ASSESSMENT: Covid 19 Left sided weakness Paroxysmal atrial fibrillation with RVR Coronary artery disease with previous stenting of the RCA and diagonal branch History of TIA Carotid stenosis History of lung cancer with metastasis History of aortic stenosis with previous TAVR Hypertension Hyperlipidemia Former nicotine dependence PLAN: No need to repeat echocardiogram Continue anticoagulation with Xarelto Neurology following for left-sided weakness Continue additional cardiac medications Continue telemetry monitoring Further recommendations pending patient's course Nurse practitioner note has been reviewed by physician. Signing provider agrees with the documented findings, assessment, and plan of care. Past Medical History Past Medical History: Atrial Fibrillation, Asthma, Coronary Artery Disease (CAD), Cancer, COPD, CVA/TIA, GERD/Reflux, Hearing Disorder / Deafness, Hyperlipidemia, Hypertension, Pneumonia, Respiratory Disorder, Sleep Apnea/CPAP/BIPAP, Thyroid Disorder Additional Past Medical History / Comment(s): Lung Cancer in remission, cond stable, currently tx on hold, last chemo was in November/2019, diverticular disease, hx SBO w/ resection/colostomy/reversal, prostate cancer w/ radiation tx, skin cancer removed from face, hypothyroid. Hearing aids. Aortic stenosis. 3 spots on brain that had radiation tx. [email or web address] early june 2021. History of Any Multi-Drug Resistant Organisms: None Reported Past Surgical History: Bowel Resection, Heart Catheterization, Heart Catheterization With Stent, Orthopedic Surgery, Tonsillectomy Additional Past Surgical History / Comment(s): 01/07/19 bronchoscopy w/ BAL, past bronchoscopies/bx, PCI with stent 2006, bilat reconstructive ear surgery/gland removed under jaw, bowel resection d/t rupture with colostomy later reversed, L cataract removal, demetra fundoloplasty, bilat total shoulders/knees, L knee arthroscopy x 2, EGD, colonoscopy, prostate bx, bilat exciscion gynecomastia, skin cancer removals. Heart cath, [facility] 07/06/20 Past Anesthesia/Blood Transfusion Reactions: No Reported Reaction, Motion Sickness Date of Last Stent Placement:: 2006 Past Psychological History: No Psychological Hx Reported Additional Psychological History / Comment(s): Pt resides with his spouse. He has a nebulizer. He drives. Smoking Status: Former smoker Past Alcohol Use History: None Reported Additional Past Alcohol Use History / Comment(s): SMOKED OCCASIONAL CIGAR. STARTED SMOKING AT AGE 14, SMOKED TILL 1982 Past Drug Use History: None Reported - Past Family History Mother Family Medical History: Cancer Additional Family Medical History / Comment(s): MULTIPLE MYLOMA Father Family Medical History: Cancer Additional Family Medical History / Comment(s): LUNG CANCER Sister(s) Family Medical History: Cancer Additional Family Medical History / Comment(s): sister had rectal cancer. Son(s) Family Medical History: Cancer Additional Family Medical History / Comment(s): Son has hodgkins lymphoma Medications and Allergies Home Medications Medication Instructions Recorded Confirmed Type FLUoxetine HCL [PROzac] 20 mg PO DAILY 08/05/14 08/14/21 History Levothyroxine Sodium [Synthroid] 50 mcg PO DAILY 08/05/14 08/14/21 History Omeprazole [PriLOSEC] 40 mg PO HS 08/05/14 08/14/21 History Folic Acid 1 mg PO DAILY 02/12/18 08/14/21 History Fluticasone/Umeclidin/Vilanter 1 puff INHALATION RT-DAILY 11/18/19 08/14/21 History [Trelegy Ellipta 100-62.5-25] L.acidoph,Paracasei, B.lactis 1 cap PO HS 03/01/20 08/14/21 History [Probiotic] Montelukast Sodium [Singulair] 10 mg PO HS 04/05/20 08/14/21 History Losartan Potassium 50 mg PO DAILY 06/11/20 08/14/21 History Furosemide [Lasix] 20 mg PO DAILY 06/30/20 08/14/21 History Cholecalciferol [Vitamin D3 (25 25 mcg PO DAILY 04/12/21 08/14/21 History Mcg = 1000 Iu)] Aspirin EC [Ecotrin Low Dose] 162 mg PO HS 08/06/21 08/14/21 History Potassium Gluconate [Potassium 99 mg PO HS 08/06/21 08/14/21 History Gluconate ER] Rivaroxaban [Xarelto] 15 mg PO HS 08/06/21 08/14/21 History amLODIPine [Norvasc] 7.5 mg PO HS 08/06/21 08/14/21 History Albuterol Inhaler [Ventolin Hfa 2 puff INHALATION RT-QID PRN #1 gm 08/08/21 08/14/21 Rx Inhaler] Metoprolol Tartrate [Lopressor] 25 mg PO BID #90 tab 08/08/21 08/14/21 Rx Allergies Allergy/AdvReac Type Severity Reaction Status Date / Time No Known Allergies Allergy Verified 08/14/21 17:03 Physical Exam Vitals: Vital Signs Temp Pulse Resp BP BP Pulse Ox 08/16/21 07:00 98 F 76 18 110/76 93 L 08/16/21 05:11 120 H 109/69 97 08/16/21 03:04 97.5 F L 54 L 14 152/77 94 L 08/16/21 02:00 51 L 18 08/15/21 21:00 97.4 F L 53 L 15 152/75 95 08/15/21 19:55 51 L 18 08/15/21 15:50 95 08/15/21 14:47 97.6 F 51 L 18 167/92 95 Intake and Output 08/15/21 08/16/21 08/16/21 22:59 06:59 14:59 Intake Total 300 Output Total 300 Balance 0 Intake: Oral 300 Output: Urine 300 Other: Voiding Method Toilet Toilet Urinal Urinal # Voids 2 # Bowel Movements 1 Results 08/15/21 06:25 08/15/21 06:25 Cardiac Enzymes 08/15/21 Range/Units 06:25 AST 11 L (14-35) U/L CBC 08/15/21 Range/Units 06:25 WBC 8.19 (4.50-10.00) X 10*3/uL RBC 4.80 (4.40-5.60) X 10*6/uL Hgb 13.7 (13.0-17.0) g/dL Hct 42.6 (39.6-50.0) % Plt Count 215 (140-440) X 10*3/uL Comprehensive Metabolic Panel 08/15/21 Range/Units 06:25 Sodium 135 (135-145) mmol/L Potassium 5.1 (3.5-5.5) mmol/L Chloride 100 (96-109) mmol/L Carbon Dioxide 21.9 (20.0-27.5) mmol/L BUN 27.6 H (9.0-27.0) mg/dL Creatinine 1.2 (0.6-1.5) mg/dL Glucose 110 (70-110) mg/dL Calcium 10.1 (8.7-10.3) mg/dL AST 11 L (14-35) U/L ALT 9 L (10-49) U/L Alkaline Phosphatase 91 (41-126) U/L Total Protein 6.0 L (6.2-8.2) g/dL Albumin 3.8 (3.8-4.9) g/dL Current Medications Generic Name Dose Route Start Last Admin Trade Name Freq PRN Reason Stop Dose Admin Acetaminophen 650 mg 08/15/21 15:50 Acetaminophen Tab 325 Mg Tab PO Q6HR PRN Mild Pain or Fever > 100.5 Albuterol Sulfate 2 puff 08/15/21 20:20 Albuterol Hfa Inhaler INHALATION RT-QID PRN Shortness Of Breath Or Wheezing Amlodipine Besylate 7.5 mg 08/14/21 21:00 08/15/21 21:10 Amlodipine 5 Mg Tab PO 7.5 mg HS JUSTEN Administration Aspirin 162 mg 08/14/21 21:00 08/15/21 21:10 Aspirin 81 Mg PO 162 mg HS JUSTEN Administration Atorvastatin Calcium 40 mg 08/15/21 21:00 08/15/21 21:10 Atorvastatin 40 Mg Tab PO 40 mg HS JUSTEN Administration Budesonide/Formoterol Fumarate 2 puff 08/15/21 20:00 08/16/21 08:31 Symbicort 80-4.5 Mcg Inhaler INHALATION 2 puff RT-BID JUSTEN Administration Calcium Carbonate/Glycine 1,000 mg 08/15/21 15:50 Calcium Carbonate 500 Mg Chewable PO Q4HR PRN Dyspepsia Cholecalciferol 25 mcg 08/15/21 13:45 08/16/21 07:32 Cholecalciferol 25 Mcg (1000 Iu) Tablet PO 25 mcg DAILY JUSTEN Administration Fluoxetine HCl 20 mg 08/15/21 09:00 08/16/21 07:33 Fluoxetine Hcl 20 Mg Cap PO 20 mg DAILY JUSTEN Administration Folic Acid 1 mg 08/15/21 13:45 08/16/21 07:33 Folic Acid 1 Mg Tab PO 1 mg DAILY JUSTEN Administration Furosemide 20 mg 08/15/21 09:00 08/16/21 07:33 Furosemide 20 Mg Tab PO 20 mg DAILY JUSTEN Administration Lactobacillus Acidoph/Bulgaricus 1 each 08/15/21 21:00 08/15/21 21:08 Lactobacillus Acidoph & Bulgar 1 Each Packet PO Not Given HS JUSTEN Lactulose 20 gm 08/15/21 15:50 Lactulose 20 Gm/30 Ml Cup PO DAILY PRN Constipation Levothyroxine Sodium 50 mcg 08/15/21 06:30 08/16/21 05:44 Levothyroxine 50 Mcg Tab PO 50 mcg 0630 JUSTEN Administration Lorazepam 0.5 mg 08/15/21 15:50 08/16/21 05:04 Lorazepam 0.5 Mg Tab PO 0.5 mg Q6HR PRN Administration Anxiety Losartan Potassium 50 mg 08/15/21 09:00 08/16/21 07:32 Losartan 50 Mg Tab PO 50 mg DAILY JUSTEN Administration Melatonin 3 mg 08/15/21 15:50 Melatonin 3 Mg Tablet PO HS PRN Insomnia Metoprolol Tartrate 25 mg 08/14/21 21:00 08/16/21 07:33 Metoprolol Tartrate 25 Mg Tab PO 25 mg BID JUSTEN Administration Montelukast Sodium 10 mg 08/15/21 21:00 08/15/21 21:10 Montelukast 10 Mg Tab PO 10 mg HS JUSTEN Administration Naloxone HCl 0.2 mg 08/15/21 15:50 Naloxone 0.4 Mg/Ml 1 Ml Vial IV Q2M PRN Opioid Reversal Ondansetron HCl 4 mg 08/15/21 15:50 Ondansetron 4 Mg/2 Ml Vial IVP Q8HR PRN Nausea And Vomiting Pantoprazole Sodium 40 mg 08/15/21 21:00 08/15/21 21:10 Pantoprazole 40 Mg Tablet PO 40 mg HS JUSTEN Administration Rivaroxaban 15 mg 08/14/21 21:00 08/15/21 21:10 Rivaroxaban 15 Mg Tab PO 15 mg HS JUSTEN Administration Protocol Tiotropium [place] 2 puff 08/16/21 08:00 08/16/21 08:31 Tiotropium 2.5 Mcg Inhaler INHALATION 2 puff RT-DAILY JUSTEN Administration Intake and Output 08/15/21 08/16/21 08/16/21 22:59 06:59 14:59 Intake Total 300 Output Total 300 Balance 0 Intake: Oral 300 Output: Urine 300 Other: Voiding Method Toilet Toilet Urinal Urinal # Voids 2 # Bowel Movements 1 08/15/21 06:25 08/15/21 06:25
--- NOTE | 2021-08-16 10:49 | P.GSCN ---
History of Present Illness Consult date: 08/16/21 Reason for Consult: Symptomatic right ICA stenosis Requesting physician: Darien Garcia History of present illness: This is a 81-year-old male came to the hospital by ambulance for recurrent positional episodes of numbness of the left side of the body, including face, arm and leg, but excluding the lower leg from knee down to the foot. Patient states that the symptoms started about a week ago. Whenever he gets up and walk his left side of his body goes numb. He now states that even lying down his shoulder down feels numb. The past medical history including atrial fibrillation on Xarelto, coronary artery disease, lung cancer with metastasis to the brain, COPD, CVA/TIA, hyperlipidemia, hypertension, sleep apnea, and thyroid disease. Patient has a history of smoking 2 packs a day for 30 years however quit in 1983. Was also recently diagnosed with COVID-19 and was started on a daily aspirin. His coronavirus PCR came back positive this admission as well. Patient is currently in atrial fibrillation, cardiology is on consult and adjusting medications. Patient states that he had couple strokes in early June when he was in [facility]. It involved bilateral hemispheric region. Patient states that initially he developed numbness of the right thumb and index finger about a week ago. It went away, but then he started having symptoms on the left side. He had an MRI of the brain performed as an outpatient 08/13/21, initiated by his radiation oncologist to follow-up on his cerebellar lesion. However as the symptoms persisted he decided to come to the ER. Patient had an appointment with Dr. Ernst today to go over MRI.Patient states that he also has an appointment with Dr. Jackson on , 08/19/2021 at 2:30 PM by telemedicine who is a neurosrugeon according to the patient. Patient's MRI of the brain with and without contrast on 08/13/2021 revealed partial positive treatment response. It revealed punctate 2 mm enhancing focus central right cerebellar hemisphere is decrease in size from prior study. Enhancing lesion left posterior perimesencephalic cistern level measures 6 x 4 mm current study, decreased in size from prior study near the marked superior anterior aspect of the left cerebellum. No definitive new enhancing lesions. He had a CT a of the head and neck that showed 70% stenosis in the origin of the right internal carotid artery and 30% stenosis at the origin of the left internal carotid artery. There is approximate 50% stenosis of the distal left v ertebral artery. Vascular surgery was consulted regarding possible symptomatic right internal carotid artery stenosis. Review of Systems 14 point review systems was completed all pertinent positives and negatives as stated in the HPI Past Medical History Past Medical History: Atrial Fibrillation, Asthma, Coronary Artery Disease ( CAD), Cancer, COPD, CVA/TIA, GERD/Reflux, Hearing Disorder / Deafness, Hyperlipidemia, Hypertension, Pneumonia, Respiratory Disorder, Sleep Apnea/CPAP/BIPAP, Thyroid Disorder Additional Past Medical History / Comment(s): Lung Cancer in remission, cond stable, currently tx on hold, last chemo was in November/2019, diverticular disease, hx SBO w/ resection/colostomy/reversal, prostate cancer w/ radiation tx, skin cancer removed from face, hypothyroid. Hearing aids. Aortic stenosis. 3 spots on brain that had radiation tx. [email or web address] early june 2021. History of Any Multi-Drug Resistant Organisms: None Reported Past Surgical History: Bowel Resection, Heart Catheterization, Heart Catheterization With Stent, Orthopedic Surgery, Tonsillectomy Additional Past Surgical History / Comment(s): 01/07/19 bronchoscopy w/ BAL, past bronchoscopies/bx, PCI with stent 2006, bilat reconstructive ear surgery/gland removed under jaw, bowel resection d/t rupture with colostomy later reversed, L cataract removal, demetra fundoloplasty, bilat total shoulders/knees, L knee arthroscopy x 2, EGD, colonoscopy, prostate bx, bilat exciscion gynecomastia, skin cancer removals. Heart cath, [facility] 07/06/20 Past Anesthesia/Blood Transfusion Reactions: No Reported Reaction, Motion Sickness Date of Last Stent Placement:: 2006 Past Psychological History: No Psychological Hx Reported Additional Psychological History / Comment(s): Pt resides with his spouse. He has a nebulizer. He drives. Smoking Status: Former smoker Past Alcohol Use History: None Reported Additional Past Alcohol Use History / Comment(s): SMOKED OCCASIONAL CIGAR. STARTED SMOKING AT AGE 14, SMOKED TILL 1982 Past Drug Use History: None Reported - Past Family History Mother Family Medical History: Cancer Additional Family Medical History / Comment(s): MULTIPLE MYLOMA Father Family Medical History: Cancer Additional Family Medical History / Comment(s): LUNG CANCER Sister(s) Family Medical History: Cancer Additional Family Medical History / Comment(s): sister had rectal cancer. Son(s) Family Medical History: Cancer Additional Family Medical History / Comment(s): Son has hodgkins lymphoma Medications and Allergies Home Medications Medication Instructions Recorded Confirmed Type FLUoxetine HCL [PROzac] 20 mg PO DAILY 08/05/14 08/14/21 History Levothyroxine Sodium [Synthroid] 50 mcg PO DAILY 08/05/14 08/14/21 History Omeprazole [PriLOSEC] 40 mg PO HS 08/05/14 08/14/21 History Folic Acid 1 mg PO DAILY 02/12/18 08/14/21 History Fluticasone/Umeclidin/Vilanter 1 puff INHALATION RT-DAILY 11/18/19 08/14/21 History [Trelegy Ellipta 100-62.5-25] L.acidoph,Paracasei, B.lactis 1 cap PO HS 03/01/20 08/14/21 History [Probiotic] Montelukast Sodium [Singulair] 10 mg PO HS 04/05/20 08/14/21 History Losartan Potassium 50 mg PO DAILY 06/11/20 08/14/21 History Furosemide [Lasix] 20 mg PO DAILY 06/30/20 08/14/21 History Cholecalciferol [Vitamin D3 (25 25 mcg PO DAILY 04/12/21 08/14/21 History Mcg = 1000 Iu)] Aspirin EC [Ecotrin Low Dose] 162 mg PO HS 08/06/21 08/14/21 History Potassium Gluconate [Potassium 99 mg PO HS 08/06/21 08/14/21 History Gluconate ER] Rivaroxaban [Xarelto] 15 mg PO HS 08/06/21 08/14/21 History amLODIPine [Norvasc] 7.5 mg PO HS 08/06/21 08/14/21 History Albuterol Inhaler [Ventolin Hfa 2 puff INHALATION RT-QID PRN #1 gm 08/08/21 08/14/21 Rx Inhaler] Metoprolol Tartrate [Lopressor] 25 mg PO BID #90 tab 08/08/21 08/14/21 Rx Allergies Allergy/AdvReac Type Severity Reaction Status Date / Time No Known Allergies Allergy Verified 08/14/21 17:03 Surgical - Exam Vital Signs Temp Pulse Resp BP Pulse Ox 97.0 F L 51 L 18 167/93 98 08/14/21 16:17 08/14/21 16:17 08/14/21 16:17 08/14/21 16:17 08/14/21 16:17 General appearance: The patient is alert, oriented, in no acute distress. HET: Head is normocephalic and atraumatic. Pupils are equal and reactive. Neck: Supple without lymphadenopathy. Trachea midline. No audible bruit. Heart: S1 S2. Regular rate and rhythm. Lungs: Clear to auscultation.. Abdomen: Soft, nontender, nondistended. Extremities: Normal skin color and turgor. No cyanosis, rash, ulceration, clubbing, or edema. Neurological: No focal deficits. Strength and sensation are grossly intact. Patient is able to answer questions appropriately, follow commands, speech is fluent. Bilateral upper and lower extremity strength and tone equal 5/5. Results - Labs 08/15/21 06:25 08/15/21 06:25 Abnormal Lab Results - Last 24 Hours (Table) 08/15/21 08/15/21 Range/Units 06:25 06:25 RDW 15.4 H (11.5-14.5) % Myelocytes % 8 H (0-0) % Lymphocytes # (Manual) 0.41 L (0.90-5.00) X 10*3/uL Eosinophils # (Manual) 0 L (0.04-0.35) X 10*3/uL BUN 27.6 H (9.0-27.0) mg/dL Est GFR (CKD-EPI)NonAf 55.6 L (60.0-200.0) BUN/Creatinine Ratio 23.00 H (12.00-20.00) Ratio AST 11 L (14-35) U/L ALT 9 L (10-49) U/L Total Protein 6.0 L (6.2-8.2) g/dL Diabetes panel 08/15/21 Range/Units 06:25 Sodium 135 (135-145) mmol/L Potassium 5.1 (3.5-5.5) mmol/L Chloride 100 (96-109) mmol/L Carbon Dioxide 21.9 (20.0-27.5) mmol/L BUN 27.6 H (9.0-27.0) mg/dL Creatinine 1.2 (0.6-1.5) mg/dL Glucose 110 (70-110) mg/dL Calcium 10.1 (8.7-10.3) mg/dL AST 11 L (14-35) U/L ALT 9 L (10-49) U/L Alkaline Phosphatase 91 (41-126) U/L Total Protein 6.0 L (6.2-8.2) g/dL Albumin 3.8 (3.8-4.9) g/dL Calcium panel 08/15/21 Range/Units 06:25 Calcium 10.1 (8.7-10.3) mg/dL Albumin 3.8 (3.8-4.9) g/dL Pituitary panel 08/15/21 Range/Units 06:25 Sodium 135 (135-145) mmol/L Potassium 5.1 (3.5-5.5) mmol/L Chloride 100 (96-109) mmol/L Carbon Dioxide 21.9 (20.0-27.5) mmol/L BUN 27.6 H (9.0-27.0) mg/dL Creatinine 1.2 (0.6-1.5) mg/dL Glucose 110 (70-110) mg/dL Calcium 10.1 (8.7-10.3) mg/dL Adrenal panel 08/15/21 Range/Units 06:25 Sodium 135 (135-145) mmol/L Potassium 5.1 (3.5-5.5) mmol/L Chloride 100 (96-109) mmol/L Carbon Dioxide 21.9 (20.0-27.5) mmol/L BUN 27.6 H (9.0-27.0) mg/dL Creatinine 1.2 (0.6-1.5) mg/dL Glucose 110 (70-110) mg/dL Calcium 10.1 (8.7-10.3) mg/dL Total Bilirubin 0.30 (0.30-1.20) mg/dL AST 11 L (14-35) U/L ALT 9 L (10-49) U/L Alkaline Phosphatase 91 (41-126) U/L Total Protein 6.0 L (6.2-8.2) g/dL Albumin 3.8 (3.8-4.9) g/dL - Imaging Comments: MRI of the brain with and without contrast on 08/13/2021 revealed partial positive treatment response. It revealed punctate 2 mm enhancing focus central right cerebellar hemisphere is decrease in size from prior study. Enhancing lesion left posterior perimesencephalic cistern level measures 6 x 4 mm current study, decreased in size from prior study near the marked superior anterior aspect of the left cerebellum. No definitive new enhancing lesions. CT a of the head and neck that showed 70% stenosis in the origin of the right internal carotid artery and 30% stenosis at the origin of the left internal carotid artery. There is approximate 50% stenosis of the distal left vertebral artery. Vascular surgery was consulted regarding possible symptomatic right internal carotid artery stenosis. Assessment and Plan Assessment: 1. Right internal carotid artery stenosis approximately 70% per CT angiogram head and neck 2. Left upper extremity numbness and tingling 3. History of CVA/TIA 4. Atrial fibrillation 5. Lung cancer with metastasis to the brain Plan: 1. CT angiogram head and neck reviewed 2. Carotid duplex ordered 3. Continue with recommendations from neurology 4. Continue with recommendations from cardiology 5. Recommend PT/OT 6. Continue Xarelto, aspirin and a atorvastatin 7. Please get disc made of CT angiogram head and neck 8. No plans for any acute intervention. Would recommend outpatient follow-up and further recommendations at that time based on imaging. Thank you for this consultation and allowing us take part in the plan of care of your patient during his hospital stay. The impression and plan of care has been dictated as directed. Dr. Spicer I performed a history and examination of this patient, discussed the same with the dictator. I agree with the dictator's note ,documented as a scribe. Any additional findings or plans will be noted.
[2021-08-16] MEDS ORDERED: METOPROLOL TARTRATE 25 MG TAB PO STA (15:31)
[2021-08-16] MEDS ORDERED: HYDROcodone/APAP 5-325MG 1 EACH TAB PO PRN (15:52)
--- NOTE | 2021-08-16 16:42 | P.PN ---
Subjective Progress Note Date: 08/16/21 I am seeing the patient for the first time during this admission. Please refer to Dr. Garcia's note for further details. Patient continues to have numbness of entire left side of face and left upper and lower extremity as well his body. Initially it was happening to standing up and now it is continuos. Patient has history of lung cancer with brain mets. Objective - Vital Signs Vital signs: Vital Signs Temp 98 F 08/16/21 07:00 Pulse 76 08/16/21 07:00 Resp 18 08/16/21 07:00 BP 110/76 08/16/21 07:00 Pulse Ox 93 L 08/16/21 07:00 Intake & Output 08/15/21 08/16/21 08/16/21 18:59 06:59 18:59 Intake Total 300 120 Output Total 400 300 Balance -400 0 120 Intake: Oral 300 120 Output: Urine 400 300 Other: Voiding Method Toilet Urinal # Voids 2 # Bowel Movements 1 - Exam GENERAL: The patient is lying in bed and is not in acute distress. NEUROLOGICAL: Higher mental function: The patient is awake, alert, oriented to self, place and time. Patient is following commands. No aphasia and no neglect. Cranial nerves: The pupils are round, equal and reactive to light and accommodation. Visual li are full to confrontation throughout. Extraocular movement is intact no nystagmus is noted. Facial sensation is decreased to touch over the left side. The facial strength is normal throughout. . Tongue is midline and moved [id number] without any difficulty. No dysarthria is noted. Shoulder shrug is normal bilaterally. Motor: Gait is deferred. The strength is 5 over 5 throughout. Normal tone and bulk. Cerebellum: Slight left dysmetria over the left upper. Otherwise normal over the right. Sensation: Sensation is decreased over the entire left side to touch. WORK-UP: CTA of head and neck reported as 70% stenosis or region right ICA and 30% stenosis origin left ICA. There is approximate 50% stenosis of the distal left vertebral artery. PREVIOUS WORK-UP: Patient's MRI of the brain with and without contrast on 08/13/2021 revealed partial positive treatment response. It revealed punctate 2 mm enhancing focus central right cerebellar hemisphere is decrease in size from prior study. Enhancing lesion left posterior perimesencephalic cistern level measures 6 x 4 mm current study, decreased in size from prior study near the marked superior anterior aspect of the left cerebellum. No definitive new enhancing lesions. Last 2-D echo from 04/13/2021 shows normal left-ventricular size, moderate concentric LVH, EF is between 60-65%. Global wall thickness of the right ventricle. TAVR procedure done. Patient's lipid panel from 04/13/2021 shows cholesterol 125, LDL 51, HDL 28 and triglycerides 228. - Labs CBC & Chem 7: 08/15/21 06:25 08/15/21 06:25 Assessment and Plan Assessment: * Recurrent focal numbness of left side of the body including face, arm and leg. Intially with standing up and resolving with laying down but has evolved to continuos. Possibly brain mets. * Brain mets: MRI of the brain with and without contrast on 08/13/2021 revealed partial positive treatment response. It revealed punctate 2 mm enhancing focus central right cerebellar hemisphere is decrease in size from prior study. Enhancing lesion left posterior perimesencephalic cistern level measures 6 x 4 mm current study, decreased in size from prior study near the marked superior anterior aspect of the left cerebellum. No definitive new enhancing lesions) * Left ICA stenosis 70% seems asymptomatic. While Right ICA is 30% per CTA * Atrial fibrillation on anticoagulation * History of lung cancer with cerebellar metastasis, status post radiation, currently in remission. * Acute, current Covid-19 infection * Coronary artery disease, history of cardiac stenting * COPD * X tobacco use * Hypertension * Hyperlipidemia * Obstructive sleep apnea Plan: * Continue home medication of ASA 162mg qhs and is on Xarelto (home dose). Continue Lipitor 40mg qhs. * Vascular surgery team is on board for carotid stenosis. * Check hemoglobin A1c per Dr. Garcia request. I ordered Vitamin B12 and folate level. * I started the patient on Gabapentin 100mg 1 tab tid and go up to 2 tab tid in following weeks. * Continue neuro checks. * on Cardiac monitoring. * Last 2-D echo from 04/13/2021 shows normal left-ventricular size, moderate concentric LVH, EF is between 60-65%. Global wall thickness of the right ventricle. TAVR procedure done. No need to repeat echo. * Patient does have an appointment with Dr. Jackson on 08/19/2021 to follow-up on his recent strokes. * Patient to follow up with radiation oncologist regarding his MRI of the brain results showing residual metastatic lesions.. The plan is discussed with the patient's nurse. No further work-up is needed beside stated above. Will defer HbA1c management to primary team. Shashank Aguilar MD Neuro-Hospitalist. Time with Patient: Less than 30
[2021-08-16 16:51] LABS: Basophils # (A) 0.1 k/uL (0-0.2); Basophils % (A) 1 %; Eosinophils # (A) 0.2 k/uL (0-0.7); Eosinophils % (A) 2 %; HCT 49.9 % (39.0-53.0); HGB 15.8 gm/dL (13.0-17.5); Lymphocytes # (A) 1.7 k/uL (1.0-4.8); Lymphocytes % (A) 15 %; MCH 29.8 pg (25.0-35.0); MCHC 31.7 g/dL (31.0-37.0); Mean Platelet Volume 7.5; Monocytes % (A) 9 %; Neutrophils # (A) 7.7 k/uL (1.3-7.7); Neutrophils % (A) 71 %; Platelet Count 249 k/uL (150-450); RBC 5.31 m/uL (4.30-5.90); RDW 15.5 % (11.5-15.5); WBC 10.9 k/uL (3.8-10.6)
[2021-08-16 16:55] LABS: MCV 93.9 fL (80.0-100.0)
[2021-08-16 17:07] LABS: African American GFR (CKD) 37 (>60 ml/min/1.73 sqM); Anion Gap 12 mmol/L; Blood Urea Nitrogen 38 mg/dL (9-20); Calcium 9.6 mg/dL (8.4-10.2); Carbon Dioxide 19 mmol/L (22-30); Chloride 101 mmol/L (98-107); Glucose 121 mg/dL (74-99); LDH 571 U/L (313-618); Magnesium 1.7 mg/dL (1.6-2.3); Non-African American GFR(CKD) 32 (>60 ml/min/1.73 sqM); Potassium 4.2 mmol/L (3.5-5.1); Sodium 132 mmol/L (137-145)
[2021-08-16] MEDS: GABAPENTIN 100 MG CAP PO SCH (19:24)
[2021-08-16] MEDS: ASPIRIN 81 MG PO SCH (21:16)
[2021-08-16] MEDS: DEXAMETHASONE SOD PHOSPHATE 4 MG/ML 1 ML VIAL IVP SCH (21:17)
[2021-08-16] MEDS: RIVAROXABAN 15 MG TAB PO SCH (21:17)
[2021-08-16] MEDS: amLODIPine 5 MG TAB PO SCH (21:17)
[2021-08-16] MEDS: MONTELUKAST 10 MG TAB PO SCH (21:17)
[2021-08-16] MEDS: ATORVASTATIN 40 MG TAB PO SCH (21:17)
[2021-08-16] MEDS: METOPROLOL TARTRATE 50 MG TAB PO SCH (21:17)
[2021-08-16] MEDS: PANTOPRAZOLE 40 MG TABLET PO SCH (21:17)
[2021-08-16] MEDS: LACTOBACILLUS ACIDOPH & BULGAR 1 EACH PACKET PO SCH (21:18)
[2021-08-17] MEDS: GABAPENTIN 100 MG CAP PO SCH ×2 (00:55→07:35)
[2021-08-17] MEDS ORDERED: SODIUM CHLORIDE 0.9% 1,000 ML IV SCH (02:30)
--- NOTE | 2021-08-17 02:33 | P.PN ---
Subjective Progress Note Date: 08/16/21 History present complaint: This is a pleasant 81-year-old patient of Dr. Roxie Melendez. Chronic stable me dical conditions include coronary artery disease, CHF with EF of 50-65%, moderate aortic stenosis with sclerosis, atrial fibrillation, COPD, GERD, hyperlipidemia, hypertension, primary osteoarthritis,(s) sleep apnea, hypothyroid. 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 treated with chemotherapy -being followed with Dr. Rutherford. last chemotherapy in October 2019 History of Grabiel fundoplication, has had small bowel obstruction with resection colostomy and reversal of the same. prostate cancer treated with radiation.. Bronchoscopy in March 2021 negative for malignant cells. has received both his COVID vaccine and received a booster shot . On July 26 patient was diagnosed with COVID 19. One week later he did Monoclonal anti bodies. Patient was recently in the hospital from August 06 through August 08. Admitted with paroxysmal atrial fibrillation, COVID 19 pneumonitis, pharyngeal candidiasis, acute COPD exacerbation. Was doing rather well by the time of discharge. Patient now presents that every time he walks he gets numbness on the left side of the face left arm left leg up to the knee. Only occurs with activity. His appetite is fair. No neck pain. No headache. Patient is chronically lightheaded. Denies any fever and chills. Neurology was consulted. 08/16/2021 Patient is seen at the bedside today stating he is feeling overall worse and the left side facial and upper extremity numbness is continuous and is having pain and asking for pain medications. Patient was scheduled to see Dr. Ernst today outpatient for follow up of MRI of the brain for lesions noted on the brain. Patient follows outpatient for lung ca with malignancy. Patient is also covid positive although not having any respiratory distress. Patient reports to being vaccinated and with a booster as well. Denies any other sick contacts at home. Neuro is following and recommending outpatient follow up and vascular surgery consult for stenosis. Patient is continued on vitamins and zince along with dexamethasone. Patient is maintained on Xarelto. D-dimer was elevated today and kidney functions worsening. will add gentle IV hydration and repeat am labs. Encouraged oral intake. Patient denies chest pain or palpitations. Afebrile Review of systems: GEN.: reports of fatigue anxiety and overall not well RESPIRATORY: no reports of shortness of breath, reports Some cough CARDIOVASCULAR: no reports of chest pain or palpitations GASTROINTESTINAL: no reports of nausea or vomiting, no loose stools GENITOURINARY: no reports of dysuria or burning with urination MUSCULOSKELETAL: reports Some joint pains NEUROLOGICAL: reports continued left side numbness Active Medications Acetaminophen (Acetaminophen Tab 325 Mg Tab) 650 mg PO Q6HR PRN PRN Reason: Mild Pain or Fever > 100.5 Hydrocodone Bitart/Acetaminophen (Hydrocodone/Apap 5-325mg 1 Each Tab) 0.5 each PO Q8HR PRN PRN Reason: Pain Last Admin: 08/16/21 16:03 Dose: 0.5 each Documented by: Albuterol Sulfate (Albuterol Hfa Inhaler) 2 puff INHALATION RT-QID PRN PRN Reason: Shortness Of Breath Or Wheezing Amlodipine Besylate (Amlodipine 5 Mg Tab) 7.5 mg PO HS [facility] Last Admin: 08/16/21 21:17 Dose: 7.5 mg Documented by: Aspirin (Aspirin 81 Mg) 162 mg PO HS [facility] Last Admin: 08/16/21 21:16 Dose: 162 mg Documented by: Atorvastatin Calcium (Atorvastatin 40 Mg Tab) 40 mg PO HS [facility] Last Admin: 08/16/21 21:17 Dose: 40 mg Documented by: Budesonide/Formoterol Fumarate (Symbicort 80-4.5 Mcg Inhaler) 2 puff INHALATION RT-BID [facility] Last Admin: 08/16/21 19:36 Dose: 2 puff Documented by: Calcium Carbonate/Glycine (Calcium Carbonate 500 Mg Chewable) 1,000 mg PO Q4HR PRN PRN Reason: Dyspepsia Cholecalciferol (Cholecalciferol 25 Mcg (1000 Iu) Tablet) 25 mcg PO DAILY [facility] Last Admin: 08/16/21 07:32 Dose: 25 mcg Documented by: Dexamethasone Sodium Phosphate (Dexamethasone Sod Phosphate 4 Mg/Ml 1 Ml Vial) 4 mg IVP BID [facility] Last Admin: 08/16/21 21:17 Dose: 4 mg Documented by: Fluoxetine HCl (Fluoxetine Hcl 20 Mg Cap) 20 mg PO DAILY [facility] Last Admin: 08/16/21 07:33 Dose: 20 mg Documented by: Folic Acid (Folic Acid 1 Mg Tab) 1 mg PO DAILY [facility] Last Admin: 08/16/21 07:33 Dose: 1 mg Documented by: Furosemide (Furosemide 20 Mg Tab) 20 mg PO DAILY [facility] Last Admin: 08/16/21 07:33 Dose: 20 mg Documented by: Gabapentin (Gabapentin 100 Mg Cap) 100 mg PO TID [facility] Last Admin: 08/17/21 00:55 Dose: 100 mg Documented by: Lactobacillus Acidoph/Bulgaricus (Lactobacillus Acidoph & Bulgar 1 Each Packet) 1 each PO HS [facility] Last Admin: 08/16/21 21:18 Dose: Not Given Documented by: Lactulose (Lactulose 20 Gm/30 Ml Cup) 20 gm PO DAILY PRN PRN Reason: Constipation Levothyroxine Sodium (Levothyroxine 50 Mcg Tab) 50 mcg PO 0630 [facility] Last Admin: 08/16/21 05:44 Dose: 50 mcg Documented by: Lorazepam (Lorazepam 0.5 Mg Tab) 0.5 mg PO Q6HR PRN PRN Reason: Anxiety Last Admin: 08/16/21 05:04 Dose: 0.5 mg Documented by: Losartan Potassium (Losartan 50 Mg Tab) 50 mg PO DAILY [facility] Last Admin: 08/16/21 07:32 Dose: 50 mg Documented by: Melatonin (Melatonin 3 Mg Tablet) 3 mg PO HS PRN PRN Reason: Insomnia Metoprolol Tartrate (Metoprolol Tartrate 50 Mg Tab) 50 mg PO BID [facility] Last Admin: 08/16/21 21:17 Dose: 50 mg Documented by: Montelukast Sodium (Montelukast 10 Mg Tab) 10 mg PO HS [facility] Last Admin: 08/16/21 21:17 Dose: 10 mg Documented by: Naloxone HCl (Naloxone 0.4 Mg/Ml 1 Ml Vial) 0.2 mg IV Q2M PRN PRN Reason: Opioid Reversal Ondansetron HCl (Ondansetron 4 Mg/2 Ml Vial) 4 mg IVP Q8HR PRN PRN Reason: Nausea And Vomiting Pantoprazole Sodium (Pantoprazole 40 Mg Tablet) 40 mg PO HS [facility] Last Admin: 08/16/21 21:17 Dose: 40 mg Documented by: Rivaroxaban (Rivaroxaban 15 Mg Tab) 15 mg PO HS [facility]; Protocol Last Admin: 08/16/21 21:17 Dose: 15 mg Documented by: Tiotropium [place] (Tiotropium 2.5 Mcg Inhaler) 2 puff INHALATION RT-DAILY [facility] Last Admin: 08/16/21 08:31 Dose: 2 puff Documented by: Physical examination: GENERAL: 81 year old male lying in bed, anxious, alert and oriented x 3, well developed, well nourished EYES: Pupils equal. Conjunctiva normal. HEENT: External appearance of nose and ears normal, oral cavity normal. NECK: JVD not raised; masses not palpable. HEART: S1, S2 muffled, irregular LUNGS: decreased breath sounds no wheezing or rhonchi noted ABDOMEN: Soft, obese, nontender, bowel sounds noted PSYCH: Alert and oriented x3; mood and affect anxious NEUROLOGICAL: Cranial nerves grossly intact; no facial asymmetry, no focal def icit. LYMPHATICS: No lymph nodes palpable in the axilla and neck Assessment and plan: -left side numbness -elevated d dimer secondary to covid infection, suspicion for PE is low and unable to get CTA at this time due to elevated kidney functions, patient is also denying shortness of breath and on room air. -paroxysmal atrial fibrillation with RVR, currently sinus -Covid 19 infection with no hypoxia -COPD acute exacerbation -past medical history of nicotine use -Chronic tracheal bronchomalacia -Colonic diverticulosis, asymptomatic -Grabiel fundoplication history -Coronary artery disease with a prior history of stent -Stage IV adenocarcinoma of the lung received chemotherapy. -Hypothyroidism -Essential hypertension -Obstructive sleep apnea -Chronic congestive heart failure from diastolic dysfunction EF 50-60%. Stable -Moderate aortic stenosis with sclerosis nonrheumatic -Primary osteoarthritis multiple joints -Chronic kidney disease. 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 with acute kidney injury -70% stenosis origin right ICA. -full code plan: recommend to continue with current medications and consultations. Dr Ernst consulted as he was to follow up today regarding lesions noted in the brain and MRI results. Patient follows with oncology outpatient. Neurological workup in progress and recommending outpatient follow up for further testing after covid resolved. Patient is extremely anxious and states he is having pain and numbness of the face and left upper extremity. Patient was in Afib RVR last night and cardiology consulted and given metoprolol and currently sinus rhythm. Patient is continued on xarelto. D dimer was elevated although most likely related to covid infection and patient kidney functions would not tolerate CT contrast at this time and patient is maintained on xarelto. Patient is not having any shortness of breath and 02 is above 94% on room air. Will add gentle IV hydration and repeat am labs. Due to multiple complex medical issues, prognosis is guarded. Discussed code status with patient and he wishes to remain full code. Home medications resumed. Neurology consulted. Neuro checks. Care was discussed with the patient. Follow discussed with patient. Objective - Vital Signs Vital signs: Vital Signs Temp 98 F 08/16/21 07:00 Pulse 76 08/16/21 07:00 Resp 18 08/16/21 07:00 BP 110/76 08/16/21 07:00 Pulse Ox 93 L 08/16/21 07:00 Intake & Output 08/15/21 08/16/21 08/16/21 18:59 06:59 18:59 Intake Total 300 Output Total 400 300 Balance -400 0 Intake: Oral 300 Output: Urine 400 300 Other: Voiding Method Toilet Urinal # Voids 2 # Bowel Movements 1 - Labs CBC & Chem 7: 08/16/21 16:31 08/16/21 16:31 Labs: Abnormal Lab Results - Last 24 Hours (Table) 08/15/21 08/15/21 Range/Units 06:25 06:25 RDW 15.4 H (11.5-14.5) % Myelocytes % 8 H (0-0) % Lymphocytes # (Manual) 0.41 L (0.90-5.00) X 10*3/uL Eosinophils # (Manual) 0 L (0.04-0.35) X 10*3/uL BUN 27.6 H (9.0-27.0) mg/dL Est GFR (CKD-EPI)NonAf 55.6 L (60.0-200.0) BUN/Creatinine Ratio 23.00 H (12.00-20.00) Ratio AST 11 L (14-35) U/L ALT 9 L (10-49) U/L Total Protein 6.0 L (6.2-8.2) g/dL
[2021-08-17] MEDS: LEVOTHYROXINE 50 MCG TAB PO SCH (05:43)
[2021-08-17 06:51] LABS: Basophils % (A) 0 %; Eosinophils % (A) 0 %; HCT 45.1 % (39.0-53.0); HGB 14.9 gm/dL (13.0-17.5); Lymphocytes % (A) 11 %; MCH 29.5 pg (25.0-35.0); MCV 89.4 fL (80.0-100.0); Mean Platelet Volume 7.6; Monocytes # (A) 0.4 k/uL (0-1.0); Monocytes % (A) 4 %; Neutrophils # (A) 7.7 k/uL (1.3-7.7); Neutrophils % (A) 84 %; Platelet Count 215 k/uL (150-450); RBC 5.05 m/uL (4.30-5.90); RDW 14.9 % (11.5-15.5); WBC 9.1 k/uL (3.8-10.6)
[2021-08-17 07:11] LABS: African American GFR (CKD) 48 (>60 ml/min/1.73 sqM); Anion Gap 7 mmol/L; Blood Urea Nitrogen 39 mg/dL (9-20); Calcium 9.6 mg/dL (8.4-10.2); Carbon Dioxide 23 mmol/L (22-30); Chloride 102 mmol/L (98-107); Glucose 132 mg/dL (74-99); Non-African American GFR(CKD) 41 (>60 ml/min/1.73 sqM); Sodium 132 mmol/L (137-145)
[2021-08-17] MEDS: FUROSEMIDE 20 MG TAB PO SCH (07:34)
[2021-08-17] MEDS: METOPROLOL TARTRATE 50 MG TAB PO SCH (07:34)
[2021-08-17] MEDS: CHOLECALCIFEROL 25 MCG (1000 IU) TABLET PO SCH (07:34)
[2021-08-17] MEDS: FOLIC ACID 1 MG TAB PO SCH (07:35)
[2021-08-17] MEDS: DEXAMETHASONE SOD PHOSPHATE 4 MG/ML 1 ML VIAL IVP SCH (07:35)
[2021-08-17] MEDS: LOSARTAN 50 MG TAB PO SCH (07:35)
[2021-08-17 08:10] VITALS: TEMP 97.5
[2021-08-17] MEDS: SYMBICORT 80-4.5 MCG INHALER INHALATION SCH (08:44)
[2021-08-17] MEDS: TIOTROPIUM 2.5 MCG INHALER INHALATION SCH (08:44)
[2021-08-17] MEDS: FLUoxetine HCL 20 MG CAP PO SCH (09:27)
--- NOTE | 2021-08-17 10:34 | P.PN ---
Subjective Progress Note Date: 08/17/21 This 81-year-old male who presented to the emergency room with complaints of left-sided numbness and tingling. Patient states he continues to have numbness and tingling along the left side of his body. He is status post radiation for lung cancer with metastasis to the brain. Neurology has seen patient this is unlikely symptoms related to TIA/CVA. Patient is COVID positive. He has good tone and strength to his left upper and lower extremities. His speech is fluent, he is able to follow commands. He did undergo a carotid ultrasound that shows possible moderate stenosis of right ICA up to 50-69%. Discussed the CT angiogram of head and neck was obtained. Patient eyes any new focal deficits to day. Objective - Vital Signs Vital signs: Vital Signs Temp 97.5 F L 08/17/21 07:50 Pulse 60 08/17/21 07:50 Resp 18 08/17/21 07:50 BP 158/93 08/17/21 07:50 Pulse Ox 94 L 08/17/21 07:50 Intake & Output 08/16/21 08/17/21 08/17/21 18:59 06:59 18:59 Intake Total 240 500 Balance 240 500 Intake: Oral 240 500 Other: Voiding Method Toilet Urinal # Voids 1 2 # Bowel Movements 1 1 - Exam General appearance: The patient is alert, oriented, in no acute distress. HET: Head is normocephalic and atraumatic. Pupils are equal and reactive. Neck: Supple without lymphadenopathy. Trachea midline. Extremities: Normal skin color and turgor. No cyanosis, rash, ulceration, clubbing, or edema. Neurological: No focal deficits. Strength and sensation are grossly intact. - Labs CBC & Chem 7: 08/17/21 06:10 08/17/21 06:10 Labs: Abnormal Lab Results - Last 24 Hours (Table) 08/16/21 08/16/21 08/16/21 Range/Units 16:31 16:31 16:31 WBC 10.9 H (3.8-10.6) k/uL D-Dimer 1.72 H (<0.60) mg/L FEU Sodium 132 L (137-145) mmol/L Carbon Dioxide 19 L (22-30) mmol/L BUN 38 H (9-20) mg/dL Creatinine 1.89 H (0.66-1.25) mg/dL Glucose 121 H (74-99) mg/dL Procalcitonin (0.02-0.09) ng/mL 08/16/21 08/17/21 Range/Units 16:31 06:10 WBC (3.8-10.6) k/uL D-Dimer (<0.60) mg/L FEU Sodium 132 L (137-145) mmol/L Carbon Dioxide (22-30) mmol/L BUN 39 H (9-20) mg/dL Creatinine 1.54 H (0.66-1.25) mg/dL Glucose 132 H (74-99) mg/dL Procalcitonin 0.11 H (0.02-0.09) ng/mL Assessment and Plan Assessment: 1. Right internal carotid artery stenosis approximately 70% per CT angiogram head and neck, 50-69% per carotid duplex 2. Left upper extremity numbness and tingling 3. History of CVA/TIA 4. Atrial fibrillation 5. Lung cancer with metastasis to the brain undergoing radiation Plan: 1. CT angiogram head and neck reviewed 2. Carotid duplex reviewed 3. Continue with recommendations from neurology 4. Continue with recommendations from cardiology 5. Continue Xarelto, aspirin and a atorvastatin 6. No plans for any acute intervention. Would recommend outpatient follow-up and further recommendations at that time. Thank you for this consultation and allowing us take part in the plan of care of your patient during his hospital stay. Vascular surgery will sign off at this time. The impression and plan of care has been dictated as directed. Dr. Spicer I performed a history and examination of this patient, discussed the same with the dictator. I agree with the dictator's note ,documented as a scribe. Any additional findings or plans will be noted.
--- NOTE | 2021-08-17 10:47 | P.PN ---
Subjective Progress Note Date: 08/17/21 Principal diagnosis: Paroxysmal atrial fibrillation The patient is a pleasant 81-year-old gentleman with coronary artery disease as well as valvular heart disease and prior transcutaneous aortic valve replacement as well as multiple comorbid conditions including history of TIA and lung cancer who was admitted to the hospital with left sided weakness. He continues to be tested positive for COVID-19 infection. The patient was evaluated this morning. He continues to be stable from a cardiovascular standpoint of view. He continues to be on anticoagulation as well. From the cardiovascular standpoint overview, we'll continue the current medical regimen. We'll follow-up with the patient on when necessary case. Please call if you have any question Objective - Vital Signs Vital signs: Vital Signs Temp 97.5 F L 08/17/21 07:50 Pulse 60 08/17/21 07:50 Resp 18 08/17/21 07:50 BP 158/93 08/17/21 07:50 Pulse Ox 94 L 08/17/21 07:50 Intake & Output 08/16/21 08/17/21 08/17/21 18:59 06:59 18:59 Intake Total 240 500 Balance 240 500 Intake: Oral 240 500 Other: Voiding Method Toilet Urinal # Voids 1 2 # Bowel Movements 1 1 - Labs CBC & Chem 7: 08/17/21 06:10 08/17/21 06:10 Labs: Abnormal Lab Results - Last 24 Hours (Table) 08/16/21 08/16/21 08/16/21 Range/Units 16:31 16:31 16:31 WBC 10.9 H (3.8-10.6) k/uL D-Dimer 1.72 H (<0.60) mg/L FEU Sodium 132 L (137-145) mmol/L Carbon Dioxide 19 L (22-30) mmol/L BUN 38 H (9-20) mg/dL Creatinine 1.89 H (0.66-1.25) mg/dL Glucose 121 H (74-99) mg/dL Procalcitonin (0.02-0.09) ng/mL 08/16/21 08/17/21 Range/Units 16:31 06:10 WBC (3.8-10.6) k/uL D-Dimer (<0.60) mg/L FEU Sodium 132 L (137-145) mmol/L Carbon Dioxide (22-30) mmol/L BUN 39 H (9-20) mg/dL Creatinine 1.54 H (0.66-1.25) mg/dL Glucose 132 H (74-99) mg/dL Procalcitonin 0.11 H (0.02-0.09) ng/mL Assessment and Plan Assessment: Assessment #1 COVID-19 infection #2 paroxysmal atrial fibrillation #3 coronary artery disease #4 valvular heart disease #5 multiple comorbid conditions Plan #1 continue the current medical regimen #2 continue oral anticoagulation #3 follow-up with the patient on when necessary case
--- NOTE | 2021-08-17 12:16 | P.PN ---
Subjective Progress Note Date: 08/17/21 The patient is seen at bedside and he continues to feels numbness and tingling over the entire left side including face. He feels he is doing better. The nurse feels he is doing better today compared to yesterday. He denies of any new neurological problems. The primary team started the patient on Dexamethasone 4mg 1 tab bid. Radiation Oncology team was informed of use of Dexamethasone. Objective - Vital Signs Vital signs: Vital Signs Temp 97.5 F L 08/17/21 07:50 Pulse 60 08/17/21 07:50 Resp 18 08/17/21 07:50 BP 158/93 08/17/21 07:50 Pulse Ox 94 L 08/17/21 07:50 Intake & Output 08/16/21 08/17/21 08/17/21 18:59 06:59 18:59 Intake Total 240 500 Balance 240 500 Intake: Oral 240 500 Other: Voiding Method Toilet Urinal # Voids 1 2 # Bowel Movements 1 1 - Exam GENERAL: The patient is lying in bed and is not in acute distress. NEUROLOGICAL: Higher mental function: The patient is awake, alert, oriented to self, place and time. Patient is following commands. No aphasia and no neglect. Cranial nerves: The pupils are round, equal and reactive to light and accommodation. Visual li are full to confrontation throughout. Extraocular movement is intact no nystagmus is noted. Facial sensation is decreased to touch over the left side. The facial strength is normal throughout. . Tongue is midline and moved [id number] without any difficulty. No dysarthria is noted. Shoulder shrug is normal bilaterally. Motor: Gait is deferred. The strength is left forearm flexion is 4+ to 5-. Otherwise 5 over 5 throughout. Normal tone and bulk. Cerebellum: Minimal dysmetria over the left upper. Otherwise normal over the right. Sensation: Sensation is normal to touch throughout. WORK-UP: CTA of head and neck reported as 70% stenosis or region right ICA and 30% stenosis origin left ICA. There is approximate 50% stenosis of the distal left vertebral artery. PREVIOUS WORK-UP: Patient's MRI of the brain with and without contrast on 08/13/2021 revealed partial positive treatment response. It revealed punctate 2 mm enhancing focus central right cerebellar hemisphere is decrease in size from prior study. Enhancing lesion left posterior perimesencephalic cistern level measures 6 x 4 mm current study, decreased in size from prior study near the marked superior anterior aspect of the left cerebellum. No definitive new enhancing lesions. Last 2-D echo from 04/13/2021 shows normal left-ventricular size, moderate concentric LVH, EF is between 60-65%. Global wall thickness of the right ventricle. TAVR procedure done. Patient's lipid panel from 04/13/2021 shows cholesterol 125, LDL 51, HDL 28 and triglycerides 228. - Labs CBC & Chem 7: 08/17/21 06:10 08/17/21 06:10 Labs: Abnormal Lab Results - Last 24 Hours (Table) 08/16/21 08/16/21 08/16/21 Range/Units 16:31 16:31 16:31 WBC 10.9 H (3.8-10.6) k/uL D-Dimer 1.72 H (<0.60) mg/L FEU Sodium 132 L (137-145) mmol/L Carbon Dioxide 19 L (22-30) mmol/L BUN 38 H (9-20) mg/dL Creatinine 1.89 H (0.66-1.25) mg/dL Glucose 121 H (74-99) mg/dL Procalcitonin (0.02-0.09) ng/mL 08/16/21 08/17/21 Range/Units 16:31 06:10 WBC (3.8-10.6) k/uL D-Dimer (<0.60) mg/L FEU Sodium 132 L (137-145) mmol/L Carbon Dioxide (22-30) mmol/L BUN 39 H (9-20) mg/dL Creatinine 1.54 H (0.66-1.25) mg/dL Glucose 132 H (74-99) mg/dL Procalcitonin 0.11 H (0.02-0.09) ng/mL Assessment and Plan Assessment: * Recurrent subjective focal numbness of left side of the body including face, arm and leg. Intially with standing up and resolving with laying down but has evolved to continuos but on examination felt it was normal to touch but has slight dysmetria over the left upper. Possibly brain mets. * Brain mets: MRI of the brain with and without contrast on 08/13/2021 revealed partial positive treatment response. It revealed punctate 2 mm enhancing focus central right cerebellar hemisphere is decrease in size from prior study. Enhancing lesion left posterior perimesencephalic cistern level me asures 6 x 4 mm current study, decreased in size from prior study near the marked superior anterior aspect of the left cerebellum. No definitive new enhancing lesions) * Left ICA stenosis 70% seems asymptomatic. While Right ICA is 30% per CTA * Atrial fibrillation on anticoagulation * History of lung cancer with cerebellar metastasis, status post radiation, currently in remission. * Acute, current Covid-19 infection * Coronary artery disease, history of cardiac stenting * COPD * X tobacco use * Hypertension * Hyperlipidemia * Obstructive sleep apnea Plan: * Continue home medication of ASA 162mg qhs and is on Xarelto (home dose). Continue Lipitor 40mg qhs. * Vascular surgery team is on board for carotid stenosis. * Check hemoglobin A1c per Dr. Garcia request. I ordered Vitamin B12 and folate level. * Continue Gabapentin 100mg 1 tab tid since feels it is helping. * Primary team started the patient on Dexamethasone 5mg 1 tab bid. Not sure if patient needs steroids. Radiation Oncology team is on board. * Continue neuro checks. * on Cardiac monitoring. * Patient does have an appointment with Dr. Jackson on 08/19/2021 to follow-up on his recent strokes. * Patient to follow up with radiation oncologist regarding his MRI of the brain results showing residual metastatic lesions.. The plan is discussed with the patient's nurse. No further work-up is needed beside stated above. Shashank Aguilar MD Neuro-Hospitalist. Time with Patient: Less than 30
--- NOTE | 2021-08-17 13:36 | P.CONS ---
History of Present Illness - Reason for Consult Consult date: 08/17/21 left sided numbness Requesting physician: Mor Medellin - Chief Complaint left sided numbness, nausea/diarrhea - History of Present Illness The patient is an 81-year-old male with a history of metastatic adenocarcinoma the left lung is initially presenting with a malignant effusion in November 2015. The patient has undergone several lines of systemic therapy and has done quite well with minimal systemic burden. He was recently discovered to have a few small lesions in the cerebellum based on recent MRI. He underwent a course of SBRT to these lesions finishing on 05/24/2021. The patient reports he has been having new onset numbness involving the left face, left upper and lower extremities. He reports no difficulty with headaches or nausea. He was diagnosed with covid in the past couple weeks, and unfortunately had a lot of diarrhea secondary to this. The patient was admitted to the hospital and underwent an MRI of the brain on August 13. No evidence of CVA. This showed decreased size of the previously treated brain lesions. There is no evidence of vasogenic edema. The patient was also on admission found to be in atrial fibrillation with rapid response. He has been evaluated by cardiology. The patient states that he felt poorly yesterday and was again having frequent bowel movements. However, he states he is feeling better today. He was recently started on 4 mg dexamethasone twice a day. He was also started on Neurontin. It is difficult to tell which of these interventions may be helping. Review of Systems Constitutional: Denies chills, Denies fever Eyes: denies blurred vision Ears: bilateral: decreased hearing Cardiovascular: Reports irregular heart beat, Denies chest pain Respiratory: Denies cough, Denies dyspnea Gastrointestinal: Reports change in bowel habits, Reports diarrhea, Denies abdominal pain Genitourinary: Denies incontinence Integumentary: Denies rash Neurological: Reports lack of coordination, Reports numbness, Reports tingling, Denies change in mentation, Denies change in speech, Denies confusion, Denies convulsions, Denies double vision, Denies gait dysfunction, Denies headaches, Denies paralysis, Denies paresthesias, Denies seizures Psychiatric: Denies anxiety, Denies confusion Past Medical History Past Medical History: Atrial Fibrillation, Asthma, Coronary Artery Disease (CAD), Cancer, COPD, CVA/TIA, GERD/Reflux, Hearing Disorder / Deafness, Hyperlipidemia, Hypertension, Pneumonia, Respiratory Disorder, Sleep Apnea/CPAP/BIPAP, Thyroid Disorder Additional Past Medical History / Comment(s): Lung Cancer in remission, cond stable, currently tx on hold, last chemo was in November/2019, diverticular disease, hx SBO w/ resection/colostomy/reversal, prostate cancer w/ radiation tx, skin cancer removed from face, hypothyroid. Hearing aids. Aortic stenosis. 3 spots on brain that had radiation tx. cvax3 early june 2021. History of Any Multi-Drug Resistant Organisms: None Reported Past Surgical History: Bowel Resection, Heart Catheterization, Heart Catheterization With Stent, Orthopedic Surgery, Tonsillectomy Additional Past Surgical History / Comment(s): 01/07/19 bronchoscopy w/ BAL, past bronchoscopies/bx, PCI with stent 2006, bilat reconstructive ear surgery/gland removed under jaw, bowel resection d/t rupture with colostomy later reversed, L cataract removal, demetra fundoloplasty, bilat total shoulders/knees, L knee arthroscopy x 2, EGD, colonoscopy, prostate bx, bilat exciscion gynecomastia, skin cancer removals. Heart cath, [facility] 07/06/20 Past Anesthesia/Blood Transfusion Reactions: No Reported Reaction, Motion Sickness Date of Last Stent Placement:: 2006 Past Psychological History: No Psychological Hx Reported Additional Psychological History / Comment(s): Pt resides with his spouse. He has a nebulizer. He drives. Smoking Status: Former smoker Past Alcohol Use History: None Reported Additional Past Alcohol Use History / Comment(s): SMOKED OCCASIONAL CIGAR. STARTED SMOKING AT AGE 14, SMOKED TILL 1983 Past Drug Use History: None Reported - Past Family History Mother Family Medical History: Cancer Additional Family Medical History / Comment(s): MULTIPLE MYLOMA Father Family Medical History: Cancer Additional Family Medical History / Comment(s): LUNG CANCER Sister(s) Family Medical History: Cancer Additional Family Medical History / Comment(s): sister had rectal cancer. Son(s) Family Medical History: Cancer Additional Family Medical History / Comment(s): Son has hodgkins lymphoma Medications and Allergies Home Medications Medication Instructions Recorded Confirmed Type FLUoxetine HCL [PROzac] 20 mg PO DAILY 08/05/14 08/14/21 History Levothyroxine Sodium [Synthroid] 50 mcg PO DAILY 08/05/14 08/14/21 History Omeprazole [PriLOSEC] 40 mg PO HS 08/05/14 08/14/21 History Folic Acid 1 mg PO DAILY 02/12/18 08/14/21 History Fluticasone/Umeclidin/Vilanter 1 puff INHALATION RT-DAILY 11/18/19 08/14/21 History [Trelegy Ellipta 100-62.5-25] L.acidoph,Paracasei, B.lactis 1 cap PO HS 03/01/20 08/14/21 History [Probiotic] Montelukast Sodium [Singulair] 10 mg PO HS 04/05/20 08/14/21 History Losartan Potassium 50 mg PO DAILY 06/11/20 08/14/21 History Furosemide [Lasix] 20 mg PO DAILY 06/30/20 08/14/21 History Cholecalciferol [Vitamin D3 (25 25 mcg PO DAILY 04/12/21 08/14/21 History Mcg = 1000 Iu)] Aspirin EC [Ecotrin Low Dose] 162 mg PO HS 08/06/21 08/14/21 History Potassium Gluconate [Potassium 99 mg PO HS 08/06/21 08/14/21 History Gluconate ER] Rivaroxaban [Xarelto] 15 mg PO HS 08/06/21 08/14/21 History amLODIPine [Norvasc] 7.5 mg PO HS 08/06/21 08/14/21 History Albuterol Inhaler [Ventolin Hfa 2 puff INHALATION RT-QID PRN #1 gm 08/08/21 08/14/21 Rx Inhaler] Metoprolol Tartrate [Lopressor] 25 mg PO BID #90 tab 08/08/21 08/14/21 Rx Allergies Allergy/AdvReac Type Severity Reaction Status Date / Time No Known Allergies Allergy Verified 08/14/21 17:03 Physical Exam Vitals: Vital Signs Temp Pulse Resp BP BP Pulse Ox 08/17/21 07:50 97.5 F L 60 18 158/93 94 L 08/17/21 02:00 96.8 F L 55 L 18 147/87 92 L 08/16/21 20:00 97.4 F L 64 16 97/52 123/81 94 L 08/16/21 19:28 57 L 18 08/16/21 14:00 97.9 F 138 H 18 124/74 96 Intake and Output 08/16/21 08/17/21 08/17/21 22:59 06:59 14:59 Intake Total 120 500 Balance 120 500 Intake: Oral 120 500 Other: Voiding Method Toilet Urinal # Voids 1 2 # Bowel Movements 1 1 - Constitutional General appearance: no acute distress - EENT Eyes: EOMI, PERRLA ENT: hard of hearing - Neck Neck: no lymphadenopathy - Respiratory Respiratory: bilateral: CTA - Cardiovascular Rhythm: regular - Integumentary Integumentary: no calor, no pale - Neurologic Neurologic: CNII-XII intact - Musculoskeletal Musculoskeletal: strength equal bilaterally - Psychiatric Psychiatric: A&O x's 3, appropriate affect Results CBC & Chem 7: 08/17/21 06:10 08/17/21 06:10 Labs: Abnormal Lab Results - Last 24 Hours (Table) 08/16/21 08/16/21 08/16/21 Range/Units 16:31 16:31 16:31 WBC 10.9 H (3.8-10.6) k/uL D-Dimer 1.72 H (<0.60) mg/L FEU Sodium 132 L (137-145) mmol/L Carbon Dioxide 19 L (22-30) mmol/L BUN 38 H (9-20) mg/dL Creatinine 1.89 H (0.66-1.25) mg/dL Glucose 121 H (74-99) mg/dL Procalcitonin (0.02-0.09) ng/mL 08/16/21 08/17/21 Range/Units 16:31 06:10 WBC (3.8-10.6) k/uL D-Dimer (<0.60) mg/L FEU Sodium 132 L (137-145) mmol/L Carbon Dioxide (22-30) mmol/L BUN 39 H (9-20) mg/dL Creatinine 1.54 H (0.66-1.25) mg/dL Glucose 132 H (74-99) mg/dL Procalcitonin 0.11 H (0.02-0.09) ng/mL MRI - head: report reviewed, image reviewed Assessment and Plan Assessment: The patient is an 81-year-old male with a history of metastatic adenocarcinoma the left lung is initially presenting with a malignant effusion in November 2015. The patient has undergone several lines of systemic therapy and has done quite well with minimal systemic burden. He was recently discovered to have a few small lesions in the cerebellum based on recent MRI. He underwent a course of SBRT to these lesions finishing on 05/24/2021. He now presents with left sided numbness involving the face, left arm and left leg. Plan: 1. Left sided numbness: Brain lesions have decreased in size; no visible edema. No evidence of CVA. I suppose this is possibly related to his brain radiotherapy, but the distribution does not localize to the area where radiation was delivered. He has improved with Neurontin and decadron. I do feel he should continue low dose decadron at 4 mg daily and return for an outpatient appointment within 1 week of discharge. 2. Metastatic NSCLC: Not on active systemic therapy at this time. Will need continued surveillance. 3. COVID+: Patient still having some loose stools which may be related - continue medical management. Time with Patient: Less than 30
[2021-08-17 15:45] VITALS: BP 151/83; PULSE 61; RESP 16
[2021-08-17 21:31] LABS: Folate, Serum >20.00 ng/mL (4.40-31.00)
--- NOTE | 2021-08-19 11:40 | P.DS ---
Providers Date of admission: 08/16/21 10:14 Expected date of discharge: 08/17/21 Attending physician: Tres Mina Consults: 08/14/21 19:16 Consult Physician Urgent Consulting Provider: Darien Garcia Consult Reason/Comments: Left-sided numbness Do you want consulting provider notified?: Already Contacted 08/15/21 16:14 Consult Physician Routine Consulting Provider: Leon Jimenez Consult Reason/Comments: Symptomatic right ICA stenosis, ? suggest ICA stenting Do you want consulting provider notified?: Yes 08/16/21 06:46 Consult Physician Routine Consulting Provider: Flako Newman Consult Reason/Comments: afib rvr Do you want consulting provider notified?: Yes 08/16/21 15:15 Consult Physician Routine Consulting Provider: Waldemar Ernst Consult Reason/Comments: brain lesions, MRI results Do you want consulting provider notified?: Yes Primary care physician: Roxie Melendez Hospital Course: Final Diagnosis -left side numbness most likely secondary to metastatic brain lesions, TIA ruled out -elevated d dimer secondary to covid infection, suspicion for PE is low and unable to get CTA at this time due to elevated kidney functions -paroxysmal atrial fibrillation with RVR, currently sinus -Covid 19 infection with no hypoxia -COPD acute exacerbation -past medical history of nicotine use -Chronic tracheal bronchomalacia -Colonic diverticulosis, asymptomatic -Grabiel fundoplication history -Coronary artery disease with a prior history of stent -Stage IV adenocarcinoma of the lung received chemotherapy. -Hypothyroidism -Essential hypertension -Obstructive sleep apnea -Chronic congestive heart failure from diastolic dysfunction EF 50-60%. Stable -Moderate aortic stenosis with sclerosis nonrheumatic -Primary osteoarthritis multiple joints -Chronic kidney disease. 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 with acute kidney injury -70% stenosis origin right ICA. -full code Discharge disposition Patient is being discharged in a stable condition with guarded prognosis to home. Patient will follow-up with in the outpatient setting upon discharge. Patient to also follow up with Dr. Leon. Patient to continue with decadron on discharge along with vitamin and zinc supplements. Total time taken is greater than 35 minutes. Hospital course This is a pleasant 81-year-old patient of Dr. Roxie Melendez. Chronic stable me dical conditions include coronary artery disease, CHF with EF of 50-65%, moderate aortic stenosis with sclerosis, atrial fibrillation, COPD, GERD, hyperlipidemia, hypertension, primary osteoarthritis,(s) sleep apnea, hypothyroid. 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 treated with chemotherapy -being followed with Dr. Rutherford. last chemotherapy in October 2019 History of Grabiel fundoplication, has had small bowel obstruction with resection colostomy and reversal of the same. prostate cancer treated with radiation.. Bronchoscopy in March 2021 negative for malignant cells. has received both his COVID vaccine and received a booster shot . On July 26 patient was diagnosed with COVID 19. One week later he did Monoclonal anti bodies. Patient was recently in the hospital from August 06 through August 08. Admitted with paroxysmal atrial fibrillation, COVID 19 pneumonitis, pharyngeal candidiasis, acute COPD exacerbation. Was doing rather well by the time of discharge. Patient now presents that every time he walks he gets numbness on the left side of the face left arm left leg up to the knee. Only occurs with activity. His appetite is fair. No neck pain. No headache. Patient is chronically lightheaded. Denies any fever and chills. Neurology was consulted. 08/16/2021 Patient is seen at the bedside today stating he is feeling overall worse and the left side facial and upper extremity numbness is continuous and is having pain and asking for pain medications. Patient was scheduled to see Dr. Ernst today outpatient for follow up of MRI of the brain for lesions noted on the brain. Patient follows outpatient for lung ca with malignancy. Patient is also covid positive although not having any respiratory distress. Patient reports to being vaccinated and with a booster as well. Denies any other sick contacts at home. Neuro is following and recommending outpatient follow up and vascular surgery consult for stenosis. Patient is continued on vitamins and zince along with dexamethasone. Patient is maintained on Xarelto. D-dimer was elevated today and kidney functions worsening. will add gentle IV hydration and repeat am labs. Encouraged oral intake. Patient denies chest pain or palpitations. Afebrile 08/17/2021 Patient seen in follow up and feeling much better. Patient is on room air and afebrile. No reports of further numbness as intense as it was. Patient was seen by rad onc Dr. Ernst and discussed recent mri brain of the lesions and will follow closely with him and neurology outpatient. Patient to continue with decadron taper to complete the course. Patient would like to go home today. Currently no reports of chest pain, palpitations, or shortness of breath. Patient is afebrile. No reports of nausea or vomiting noted. Patient tolerating diet. Patient will be discharged home today. Guarded prognosis Physical examination: GENERAL: 81 year old male sitting up in the chair, alert and oriented x 3, well developed, well nourished EYES: Pupils equal. Conjunctiva normal. HEENT: External appearance of nose and ears normal, oral cavity normal. NECK: JVD not raised; masses not palpable. HEART: S1, S2 muffled, irregular LUNGS: decreased breath sounds no wheezing or rhonchi noted ABDOMEN: Soft, obese, nontender, bowel sounds noted PSYCH: Alert and oriented x3; mood and affect appropriate NEUROLOGICAL: Cranial nerves grossly intact; no facial asymmetry, no focal deficit. LYMPHATICS: No lymph nodes palpable in the axilla and neck Please refer to medication reconciliation sheet for a list of medications. Patient Condition at Discharge: Stable Plan - Discharge Summary Discharge Rx Participant: No New Discharge Prescriptions: New Atorvastatin [Lipitor] 40 mg PO HS #30 tab Gabapentin [Neurontin] 100 mg PO TID #12 cap Famotidine [Pepcid] 20 mg PO DAILY 14 Days #14 tablet Calcium Carbonate [Tums] 1,000 mg PO Q4HR PRN tab PRN Reason: Dyspepsia Dexamethasone [Decadron] 4 mg PO DAILY 5 Days #5 tablet Metoprolol Tartrate [Lopressor] 50 mg PO BID 30 Days #60 tab Acetaminophen Tab [Tylenol] 650 mg PO Q6HR PRN tab PRN Reason: Mild Pain Or Fever > 100.5 Continue Levothyroxine Sodium [Synthroid] 50 mcg PO DAILY FLUoxetine HCL [PROzac] 20 mg PO DAILY Omeprazole [PriLOSEC] 40 mg PO HS Folic Acid 1 mg PO DAILY Fluticasone/Umeclidin/Vilanter [Trelegy Ellipta 100-62.5-25] 1 puff INHALATION RT-DAILY L.acidoph,Paracasei, B.lactis [Probiotic] 1 cap PO HS Montelukast Sodium [Singulair] 10 mg PO HS Losartan Potassium 50 mg PO DAILY Furosemide [Lasix] 20 mg PO DAILY Cholecalciferol [Vitamin D3 (25 Mcg = 1000 Iu)] 25 mcg PO DAILY Aspirin EC [Ecotrin Low Dose] 162 mg PO HS Albuterol Inhaler [Ventolin Hfa Inhaler] 2 puff INHALATION RT-QID PRN #1 gm PRN Reason: Shortness Of Breath Or Wheezing Rivaroxaban [Xarelto] 15 mg PO HS amLODIPine [Norvasc] 7.5 mg PO HS Discontinued Potassium Gluconate [Potassium Gluconate ER] 99 mg PO HS Metoprolol Tartrate [Lopressor] 25 mg PO BID #90 tab Discharge Medication List FLUoxetine HCL [PROzac] 20 mg PO DAILY 08/05/14 [History] Levothyroxine Sodium [Synthroid] 50 mcg PO DAILY 08/05/14 [History] Omeprazole [PriLOSEC] 40 mg PO HS 08/05/14 [History] Folic Acid 1 mg PO DAILY 02/12/18 [History] Fluticasone/Umeclidin/Vilanter [Trelegy Ellipta 100-62.5-25] 1 puff INHALATION RT-DAILY 11/18/19 [History] L.acidoph,Paracasei, B.lactis [Probiotic] 1 cap PO HS 03/01/20 [History] Montelukast Sodium [Singulair] 10 mg PO HS 04/05/20 [History] Losartan Potassium 50 mg PO DAILY 06/11/20 [History] Furosemide [Lasix] 20 mg PO DAILY 06/30/20 [History] Cholecalciferol [Vitamin D3 (25 Mcg = 1000 Iu)] 25 mcg PO DAILY 04/12/21 [History] Aspirin EC [Ecotrin Low Dose] 162 mg PO HS 08/06/21 [History] Rivaroxaban [Xarelto] 15 mg PO HS 08/06/21 [History] amLODIPine [Norvasc] 7.5 mg PO HS 08/06/21 [History] Albuterol Inhaler [Ventolin Hfa Inhaler] 2 puff INHALATION RT-QID PRN #1 gm 08/08/21 [Rx] Acetaminophen Tab [Tylenol] 650 mg PO Q6HR PRN tab 08/17/21 [Rx] Atorvastatin [Lipitor] 40 mg PO HS #30 tab 08/17/21 [Rx] Calcium Carbonate [Tums] 1,000 mg PO Q4HR PRN tab 08/17/21 [Rx] Dexamethasone [Decadron] 4 mg PO DAILY 5 Days #5 tablet 08/17/21 [Rx] Famotidine [Pepcid] 20 mg PO DAILY 14 Days #14 tablet 08/17/21 [Rx] Gabapentin [Neurontin] 100 mg PO TID #12 cap 08/17/21 [Rx] Metoprolol Tartrate [Lopressor] 50 mg PO BID 30 Days #60 tab 08/17/21 [Rx] Follow up Appointment(s)/Referral(s): Eddie Jackson MD [STAFF PHYSICIAN] - 1 Week [facility],Equipment [NON-STAFF] - As Needed (Supplier of two wheeled walker) Lisbet Spicer DO [STAFF PHYSICIAN] - 2 Weeks Roxie Melendez DO [Primary Care Provider] - 1-2 days [facility], [NON-STAFF] - 1-2 Days Waldemar Ernst MD [STAFF PHYSICIAN] - 1 Week Ambulatory/Diagnostic Orders: Complete Blood Count w/diff [LAB.AMB] Time Frame: 3 Days, Location: None Selected Activity/Diet/Wound Care/Special Instructions: Activity Limited until follow-up Follow-up with primary care provider Follow-up with oncology and radiation oncology outpatient Follow-up neurology outpatient Follow-up cardiology Follow-up vascular surgery in the outpatient setting Encourage fluids and rest Discharge/Stand Alone Forms: Personal [employer] Discharge Disposition: HOME WITH HOME HEALTH SERVICES
== END 2021-08-17 15:38 | disposition home health service (06) | DRG 54 ==
LOC: EC 16:15 → 6NMEDSUR 19:30 → OBSVTOIN 08-16 10:14
PROVIDERS: ADMIT Hospitalist; ATTEND Hospitalist
DX: C79.31 Secondary malignant neoplasm of brain (principal); U07.1 COVID-19; B37.89 Other sites of candidiasis; G45.9 Transient cerebral ischemic attack, unspecified; I13.0 Hypertensive heart and chronic kidney disease with heart failure and stage 1 through stage 4 chronic kidney disease, or unspecified chronic kidney disease; I50.32 Chronic diastolic (congestive) heart failure; J44.1 Chronic obstructive pulmonary disease with (acute) exacerbation; N17.9 Acute kidney failure, unspecified; J44.0 Chronic obstructive pulmonary disease with (acute) lower respiratory infection; N18.2 Chronic kidney disease, stage 2 (mild); I48.0 Paroxysmal atrial fibrillation; I65.02 Occlusion and stenosis of left vertebral artery; I65.23 Occlusion and stenosis of bilateral carotid arteries; E03.9 Hypothyroidism, unspecified; E78.5 Hyperlipidemia, unspecified; G47.33 Obstructive sleep apnea (adult) (pediatric); H49.00 Third [oculomotor] nerve palsy, unspecified eye; H91.90 Unspecified hearing loss, unspecified ear; I25.10 Atherosclerotic heart disease of native coronary artery without angina pectoris; I35.0 Nonrheumatic aortic (valve) stenosis; I69.320 Aphasia following cerebral infarction; J84.10 Pulmonary fibrosis, unspecified; J98.09 Other diseases of bronchus, not elsewhere classified; K21.9 Gastro-esophageal reflux disease without esophagitis; K57.30 Diverticulosis of large intestine without perforation or abscess without bleeding; M15.9 Polyosteoarthritis, unspecified; Z79.01 Long term (current) use of anticoagulants; Z79.82 Long term (current) use of aspirin; Z79.890 Hormone replacement therapy; Z79.899 Other long term (current) drug therapy; Z80.0 Family history of malignant neoplasm of digestive organs; Z80.1 Family history of malignant neoplasm of trachea, bronchus and lung; Z85.118 Personal history of other malignant neoplasm of bronchus and lung; Z85.46 Personal history of malignant neoplasm of prostate; Z85.828 Personal history of other malignant neoplasm of skin; Z92.21 Personal history of antineoplastic chemotherapy; Z92.3 Personal history of irradiation; Z93.3 Colostomy status; Z95.2 Presence of prosthetic heart valve; Z95.5 Presence of coronary angioplasty implant and graft; Z98.42 Cataract extraction status, left eye; Z87.19 Personal history of other diseases of the digestive system
CPT/HCPCS: 36415; 70496; 70498; 70553; 71045; 80048; 80053; 82607; 82746; 83036; 83615; 83735; 84145; 84484; 85025; 85379; 85610; 85730; 87635; 93005; 93880; 94640; 99285

== ENCOUNTER → 2021-10-13 | Outpatient (CLI) | payer MEDICARE ==
--- NOTE | 2021-10-13 13:58 | MR ---
EXAMINATION TYPE: MR brain wo/w con DATE OF EXAM: 10/13/2021 1:35 PM COMPARISON: NONE HISTORY: HX OF PROSTATE CA CONTRAST: Patient received 10ML mL intravenous Gadavist gadolinium contrast. Multiplanar and multispin-echo imaging of the brain was performed . Pre and post contrast enhanced i mages are obtained. The ventricles, basal cisterns and sulci overlying the cerebral convexities are mildly enlarged. There is evidence of mild periventricular white matter ischemic demyelination. Remote deep white matter insults are also noted. No acute edema is seen on diffusion weighted imaging. There is no evidence for midline shift or mass effect. Acute intracranial hemorrhage or extra-axial collection is not evident. No enhancing lesions are seen. The paranasal sinuses and mastoid air cells are well-aerated. IMPRESSION: Age-related atrophic and chronic small vessel ischemic change. No acute intracranial process at this time. No enhancing lesions are seen.
== END | disposition home or self-care (01) ==
LOC: RADMRIMAIN 12:26
PROVIDERS: ATTEND Radiology Radiation Oncology
DX: I67.82 Cerebral ischemia (principal); G31.89 Other specified degenerative diseases of nervous system
CPT/HCPCS: 70553; A9585

== ENCOUNTER 2021-12-19 14:54 | Emergency (ER) | payer MEDICARE ==
[2021-12-19 15:06] VITALS: BP 130/73; PULSE 48; RESP 18; TEMP 97.7
[2021-12-19] MEDS ORDERED: CEPHALEXIN 500 MG CAP PO STA (16:20)
[2021-12-19] MEDS ORDERED: DIPH,PERTUS(ACELL)TETVAC-LF 0.5 ML VIAL IM ONE (16:20)
--- NOTE | 2021-12-19 16:26 | ED ---
Wound/Laceration HPI - General Chief Complaint: Wound/Laceration Stated Complaint: Lt Thumb Laceration Time Seen by Provider: 12/19/21 16:15 Source: patient, family, RN notes reviewed Mode of arrival: ambulatory Limitations: no limitations - History of Present Illness Initial Comments: This is a pleasant, [id number] 81-year-old male who injured his left thumb yesterday when he inadvertently reached into a hydraulic log splitter and had his thumb caught. Patient states he was able to hold them out but sustained lacerations to the distal aspect of thumb. Patient complaining of mild pain and swelling. This injury occurred at noon yesterday in [facility]. Patient did not seek care. Patient comes in today after the wound was assessed by his spouse. Patient has no history of immunosuppression. Patient is on anticoagulation therapy for atrial fibrillation. No other injuries. Denies any loss of sensation. No headache, no fever or chills, no changes in vision or hearing, no sore throat or difficulty with speech, no neck pain, no chest pain or shortness of breath, no abdominal pain, no nausea or vomiting, no changes in urination or bowel movements, no numbness or tingling, no skin rashes or lesions. - Related Data Home Medications Medication Instructions Recorded Confirmed FLUoxetine HCL [PROzac] 20 mg PO DAILY 08/05/14 08/14/21 Levothyroxine Sodium [Synthroid] 50 mcg PO DAILY 08/05/14 08/14/21 Omeprazole [PriLOSEC] 40 mg PO HS 08/05/14 08/14/21 Folic Acid 1 mg PO DAILY 02/12/18 08/14/21 Fluticasone/Umeclidin/Vilanter 1 puff INHALATION RT-DAILY 11/18/19 08/14/21 [Trelegy Ellipta 100-62.5-25] L.acidoph,Paracasei, B.lactis 1 cap PO HS 03/01/20 08/14/21 [Probiotic] Montelukast Sodium [Singulair] 10 mg PO HS 04/05/20 08/14/21 Losartan Potassium 50 mg PO DAILY 06/11/20 08/14/21 Furosemide [Lasix] 20 mg PO DAILY 06/30/20 08/14/21 Cholecalciferol [Vitamin D3 (25 25 mcg PO DAILY 04/12/21 08/14/21 Mcg = 1000 Iu)] Aspirin EC [Ecotrin Low Dose] 162 mg PO HS 08/06/21 08/14/21 Rivaroxaban [Xarelto] 15 mg PO HS 08/06/21 08/14/21 amLODIPine [Norvasc] 7.5 mg PO HS 08/06/21 08/14/21 Previous Rx's Medication Instructions Recorded Albuterol Inhaler [Ventolin Hfa 2 puff INHALATION RT-QID PRN #1 gm 08/08/21 Inhaler] Acetaminophen Tab [Tylenol] 650 mg PO Q6HR PRN tab 08/17/21 Atorvastatin [Lipitor] 40 mg PO HS #30 tab 08/17/21 Calcium Carbonate [Tums] 1,000 mg PO Q4HR PRN tab 08/17/21 Dexamethasone [Decadron] 4 mg PO DAILY 5 Days #5 tablet 08/17/21 Famotidine [Pepcid] 20 mg PO DAILY 14 Days #14 tablet 08/17/21 Gabapentin [Neurontin] 100 mg PO TID #12 cap 08/17/21 Metoprolol Tartrate [Lopressor] 50 mg PO BID 30 Days #60 tab 08/17/21 Cephalexin [Keflex] 500 mg PO Q6HR #40 cap 12/19/21 Allergies Allergy/AdvReac Type Severity Reaction Status Date / Time No Known Allergies Allergy Verified 12/19/21 15:06 Review of Systems ROS Statement: Those systems with pertinent positive or pertinent negative responses have been documented in the HPI. ROS Other: All systems not noted in ROS Statement are negative. Past Medical History Past Medical History: Atrial Fibrillation, Asthma, Coronary Artery Disease (CAD), Cancer, COPD, GERD/Reflux, Hearing Disorder / Deafness, Hyperlipidemia, Hypertension, Osteoarthritis (OA), Pneumonia, Respiratory Disorder, Sleep Apnea/CPAP/BIPAP, Thyroid Disorder Additional Past Medical History / Comment(s): Lung Cancer, cond stable, currently tx on hold, last chemo was in November/2019, diverticular disease, hx SBO w/ resection/colostomy/reversal, prostate cancer w/ radiation tx, skin cancer removed from face, hypothyroid. Hearing aids. Aortic stenosis History of Any Multi-Drug Resistant Organisms: None Reported Past Surgical History: Bowel Resection, Heart Catheterization, Heart Catheterization With Stent, Orthopedic Surgery, Tonsillectomy Additional Past Surgical History / Comment(s): 01/07/19 bronchoscopy w/ BAL, past bronchoscopies/bx, PCI with stent 2006, bilat reconstructive ear surgery/gland removed under jaw, bowel resection d/t rupture with colostomy later reversed, L cataract removal, demetra fundoloplasty, bilat total shoulders/knees, L knee arthroscopy x 2, EGD, colonoscopy, prostate bx, bilat exciscion gynecomastia, skin cancer removals. Heart cath, [facility] 07/06/20 Past Anesthesia/Blood Transfusion Reactions: No Reported Reaction, Motion Sickness Date of Last Stent Placement:: 2006 Past Psychological History: No Psychological Hx Reported Smoking Status: Former smoker Past Alcohol Use History: None Reported Past Drug Use History: None Reported - Past Family History Mother Family Medical History: Cancer Additional Family Medical History / Comment(s): MULTIPLE MYLOMA Father Family Medical History: Cancer Additional Family Medical History / Comment(s): LUNG CANCER Sister(s) Family Medical History: Cancer Additional Family Medical History / Comment(s): sister had rectal cancer. Son(s) Family Medical History: Cancer Additional Family Medical History / Comment(s): Son has hodgkins lymphoma General Exam Limitations: no limitations General appearance: alert, in no apparent distress Head exam: Present: atraumatic, normocephalic, normal inspection Eye exam: Present: normal appearance, PERRL, EOMI. Absent: scleral icterus, conjunctival injection, periorbital swelling ENT exam: Present: normal exam, mucous membranes moist Neck exam: Present: normal inspection. Absent: tenderness, meningismus, lymphadenopathy Respiratory exam: Present: normal lung sounds bilaterally. Absent: respiratory distress, wheezes, rales, rhonchi, stridor Cardiovascular Exam: Present: regular rate, normal rhythm, normal heart sounds. Absent: systolic murmur, diastolic murmur, rubs, gallop, clicks GI/Abdominal exam: Present: soft, normal bowel sounds. Absent: distended, tenderness, guarding, rebound, rigid Extremities exam: Present: full ROM, tenderness (Pulses intact, nail plate intact, no evidence of neurovascular insult.), normal capillary refill, other (Patient has edema noted to the distal aspect left thumb with bruising which ascends proximally. No specific bony point tenderness. Full range of motion all joints of the phalanges, hand, wrist. Pulses are intact. Capillary refill less than 2 seconds. No evidence of infectious process. ). Absent: normal inspection Back exam: Present: normal inspection Neurological exam: Present: alert, oriented X3, CN II-XII intact Psychiatric exam: Present: normal affect, normal mood Skin exam: Present: warm, dry, intact, normal color. Absent: rash Course Vital Signs 12/19/21 15:02 Temperature 97.7 F Pulse Rate 48 L Respiratory 18 Rate Blood Pressure 130/73 O2 Sat by Pulse 94 L Oximetry Medical Decision Making - Medical Decision Making Crush injury, old wound, injury occurred at noon yesterday. No bleeding. Soft tissue swelling. No bony involvement. X-rays read by me. No evidence of foreign body or osseous lesion. No fracture. No dislocation. Patient education on signs and symptoms of infection. Antibiotics prescribed. Wound care discussed in detail. Follow-up discussed. All questions answered. Patient was told to return to the ER for any signs or symptoms worsen. Told to return immediately if any other problems arise. All questions answered. Treatment plan discussed. Patient in agreement Every effort has been made to ensure accuracy of this dictation. However, due to the limitations of electronic medical records and dictation devices, errors in charting still occur Tetanus updated Patient educated on heart rate. Patient is on rate control for atrial fibrillation. However the patient is asymptomatic regarding this. Told the patient was with his regular physician and his hangar attendant. Patient only here for the left thumb. No other symptomology - Radiology Data Radiology results: image reviewed Disposition Clinical Impression: Laceration of left thumb without damage to nail, Crushing injury of finger Disposition: HOME SELF-CARE Condition: Good Instructions (If sedation given, give patient instructions): Acute Wounds (ED) Additional Instructions: Wash the wound daily with warm soap and water. Apply a thin layer of Neosporin or triple antibiotic on it. Keep covered with a sterile bandage. Follow-up with orthopedics on Monday for recheck. Take antibiotics as directed Return to the ER immediately if any symptoms worsen, new symptoms arise, or any other problems develop. Is patient prescribed a controlled substance at d/c from ED?: No Referrals: Roxie Melendez DO [Primary Care Provider] - 12/21/21 Neil Mandel MD [REFERRING] - 12/21/21 Time of Disposition: 16:56
[2021-12-19] MEDS ORDERED: BACITRACIN OINT 1 EACH PACKET TOPICAL ONE (17:11)
--- NOTE | 2021-12-19 17:14 | XR ---
EXAMINATION TYPE: XR finger LT DATE OF EXAM: 12/19/2021 COMPARISON: NONE HISTORY: Thumb pain TECHNIQUE: 3 views FINDINGS: There is some mild spurring at the IP joint of the left thumb. I see no fracture nor disloc ation. IMPRESSION: Mild spurring. No fracture seen. Mild soft tissue swelling.
== END 2021-12-19 18:12 | disposition home or self-care (01) ==
LOC: EC 14:54
DX: S67.02XA Crushing injury of left thumb, initial encounter (principal); S61.012A Laceration without foreign body of left thumb without damage to nail, initial encounter; Z23 Encounter for immunization; I48.91 Unspecified atrial fibrillation; I25.10 Atherosclerotic heart disease of native coronary artery without angina pectoris; J44.9 Chronic obstructive pulmonary disease, unspecified; K21.9 Gastro-esophageal reflux disease without esophagitis; E78.5 Hyperlipidemia, unspecified; I10 Essential (primary) hypertension; M19.90 Unspecified osteoarthritis, unspecified site; E07.9 Disorder of thyroid, unspecified; Z79.82 Long term (current) use of aspirin; Z85.118 Personal history of other malignant neoplasm of bronchus and lung; Z96.653 Presence of artificial knee joint, bilateral; Z87.891 Personal history of nicotine dependence; Z85.46 Personal history of malignant neoplasm of prostate; Z90.79 Acquired absence of other genital organ(s); W23.0XXA Caught, crushed, jammed, or pinched between moving objects, initial encounter
CPT/HCPCS: 90471; 90715; 99283

== ENCOUNTER → 2021-12-28 | Outpatient (CLI) | payer MEDICARE ==
--- NOTE | 2021-12-28 12:39 | MR ---
EXAMINATION TYPE: MR brain wo/w con DATE OF EXAM: 12/28/2021 COMPARISON: MRI brain October 13, 2021 and older MRIs HISTORY: Secondary malignant neoplasm of brain. TECHNIQUE: Multiplanar, multisequence images of the brain and brainstem is performed without and with IV contras t, utilizing 9 mL intravenous Gadavist . FINDINGS: Diffusion weighted images demonstrate no evidence of a recent infarct or other diffusion ab normality. There is persistent mild to moderate ventricular and sulcal prominence. Persistent mild t o moderate multifocal and confluent areas of T2 hyperintensity greatest in the periventricular white matter are redemonstrated. Midline structures redemonstrate normal morphology. The craniocervical junction remains within tony l limits. Punctate 2 mm enhancing focus central right cerebellar hemisphere axial image 37 is not significantly changed in size from most recent prior studies, less well-seen on coronal and sagittal images. Enhancing lesion left posterior perimesencephalic cistern level measures 4 x 2 mm current study axial image 66, not clearly identified on most recent MRI. It is diminished in size from MRI before this. Small focus of encephalomalacia posterior right cerebellar hemisphere axial image 51 has some surroun ding enhancement along the anterior margin superiorly and inferiorly on current study which was not c learly seen on most recent MRI corresponding to the level of a metastatic focus axial image 18 on the April 22, 2021 study. No definitive new enhancing lesions. The dural venous sinuses remain patent. Mild/moderate mucosal thickening in ethmoid sinuses bilateral ly is redemonstrated and in the inferior aspect of the bilateral maxillary sinuses. Globes are intact bilaterally. IMPRESSION: As above. Possible active neoplastic recurrence from most recent MRI. Continued short-ter m MRI follow-up is advised.
== END | disposition home or self-care (01) ==
LOC: RADMRIMAIN 10:46
PROVIDERS: ATTEND Radiology Radiation Oncology
DX: G93.89 Other specified disorders of brain (principal)
CPT/HCPCS: 70553; A9585

== ENCOUNTER → 2022-01-28 | Outpatient (CLI) | payer MEDICARE ==
--- NOTE | 2022-01-29 07:22 | PE ---
EXAMINATION TYPE: PET CT fusion skull to thigh DATE OF EXAM: 01/28/2022 COMPARISON: Prior PET/CT September 03, 2021 HISTORY: Lung cancer progress study. TECHNIQUE: Following the intravenous administration of 10.75 mCi of F-18 FDG, whole body images are performed from the skull base to the midthigh. Images are reviewed on the computer in the coronal, a xial, and sagittal planes. Reconstructed rotating images are created on independent workstation and reviewed on the computer. A localization and attenuation correction CT is performed in conjunction with the PET scan. Blood Glucose level equals 99. SCAN: Subsequent Scan FINDINGS: SKULL BASE AND NECK: No new areas of new abnormal hypermetabolic uptake. CHEST, MEDIASTINUM, AND HILAR REGION: Stable medial right upper lung 2.3 x 1.8 cm hypermetabolic righ t lung nodule from multiple prior studies abutting the mediastinum, max SUV is 6.04 on current study increased slightly from 5.27 on prior. Persistent and stable tiny left pleural effusion. Persistent m [id number] left greater than right bibasilar linear scarring. No new areas of abnormal hypermeta bolic uptake. ABDOMEN AND PELVIS: New ivee-xj-jxkrmlma scattered areas of nonspecific bowel uptake. Surgical suture s anteriorly lower abdomen redemonstrated. Normal excretion noted. OSSEOUS STRUCTURES: Persistent mild hypermetabolic uptake surrounding bilateral shoulder prosthesis p erhaps inflammatory change at this level is redemonstrated. New hypermetabolic lesion anterior right T10 level axial image 114, max SUV is 5.1. OTHER CT: Moderate 2 severe calcified plaque with medial deviated carotid bulbs bilaterally is redemo nstrated. Metallic hardware from bilateral shoulder surgery is redemonstrated. Persistent cardiomegal y with metallic stent graft in the aortic root and severe three-vessel coronary artery calcification and/or stents are redemonstrated. Stable tiny pericardial effusion. Persistent bilateral subareolar g ynecomastia. Tiny dependent gallstones and/or gallbladder sludge redemonstrated. Diffuse colonic diverticulosis ag ain seen. Moderate to severe calcified plaque in the ectatic abdominal aorta extends into branch vess els similar to prior. Disc space narrowing and vacuum disc phenomenon lumbosacral junction redemonstr ated. There are 3 gold therapy seeds scattered throughout the normal size prostate gland. IMPRESSION: Stable medial right upper lung hypermetabolic nodule from several prior studies should be correlated clinically. There is new suspicious hypermetabolic destructive lesion involving anterior T10 vertebra suspicious for early osseous metastatic disease.
== END | disposition home or self-care (01) ==
LOC: RADXRMAIN 09:29
PROVIDERS: ATTEND Internal Medicine Hematology & Oncology
DX: C34.11 Malignant neoplasm of upper lobe, right bronchus or lung (principal)
CPT/HCPCS: 78815; A9552

== ENCOUNTER → 2022-04-07 | Outpatient (CLI) | payer MEDICARE ==
--- NOTE | 2022-04-07 15:59 | MR ---
EXAMINATION TYPE: MR brain wo/w con DATE OF EXAM: 04/07/2022 COMPARISON: 12/28/2021, 04/22/2021, 10/13/2021 HISTORY: 82-year-old male C79.31, Metastatic lung cancer. TECHNIQUE: Multiplanar, multisequence images of the brain and brainstem were acquired before and aft er administration of 10 mL IV Gadavist. Diffusion weighted imaging is performed. FINDINGS: Diffusion-weighted images show no evidence for acute infarct. There is moderate generalized supratentorial volume loss. Mild ventriculomegaly likely secondary to c entral cerebral atrophy. T2/FLAIR weighted sequences show confluent periventricular white white matter change and additional m ild to moderate scattered foci in the subcortical regions of both cerebral hemispheres. Old lacunar i nfarct right bowel limits Focus of susceptibility artifact posterior right cerebellar hemisphere measuring 7 mm shows thin saba pheral rim enhancement. This is in comparison to 5 mm, previously. Additional punctate focus within t he left perimesencephalic cistern measuring 3 mm, axial image 70 and 71 (versus 4 mm, previously). Ot herwise, no additional enhancing intracranial lesions. Dural venous sinuses are patent. There is no midline shift, herniation, effacement of the basal subarachnoid cisterns, or extra-axial fluid collection. The major intracranial flow voids are intact. Midline structures demonstrate normal morphology. The craniocervical junction is normal. Moderate to severe mucosal thickening right maxillary sinus and ethmoid air cells. Some probably laye ring fluid right sphenoid sinus. Globes appear intact. IMPRESSION: 1. Right cerebellar lesion continues to show thin rim enhancement, likely corresponding to site of tr eated disease. However, the area measures slightly larger at 7 mm versus 5 mm, previously. The overal l degree of enhancement is not increased. Continued follow-up recommended. 2. The punctate 4 mm focus of enhancement within the left perimesencephalic cistern is stable to smal ler at 3 mm. 3. No new enhancing lesion seen. 4. Moderate chronic ethmoid and right maxillary sinus disease. Correlate for possible superimposed ac cocopah right sphenoid sinusitis.
== END | disposition home or self-care (01) ==
LOC: RADMRIMAIN 11:08
PROVIDERS: ATTEND Radiology Radiation Oncology
DX: C79.31 Secondary malignant neoplasm of brain (principal)
CPT/HCPCS: 70553; A9585

== ENCOUNTER 2022-04-27 06:34 | Inpatient (IN) | payer MEDICARE ==
[2022-04-27] MEDS ORDERED: SODIUM CHLORIDE 0.9% 500 ML 500 ML IV STA (06:58)
--- NOTE | 2022-04-27 07:07 | ED ---
Abdominal Pain HPI - General Chief Complaint: Abdominal Pain Stated Complaint: Abdominal Pain Time Seen by Provider: 04/27/22 06:39 Source: patient, EMS, RN notes reviewed Mode of arrival: EMS Limitations: no limitations - History of Present Illness Initial Comments: This is a 82-year-old male presents emergency Department chief complaint of abdominal pain. Patient's been having increasing abdominal last several days. Patient states worse when he stands up. Patient states she's not had a bowel movement. He has tried some [id number] medications for this with no relief. Patient does admit that he's had a prior colostomy, reversal secondary to perforation. Patient states he has no dysuria no hematuria he does admit that he has metastatic lung cancer brain, bone and chemo and radiation therapy. He states pain is much better when he is laying down. Denies reported fever but states she's felt hot and cold. - Related Data Home Medications Medication Instructions Recorded Confirmed FLUoxetine HCL [PROzac] 20 mg PO DAILY 08/05/14 08/14/21 Levothyroxine Sodium [Synthroid] 50 mcg PO DAILY 08/05/14 08/14/21 Omeprazole [PriLOSEC] 40 mg PO HS 08/05/14 08/14/21 Folic Acid 1 mg PO DAILY 02/12/18 08/14/21 Fluticasone/Umeclidin/Vilanter 1 puff INHALATION RT-DAILY 11/18/19 08/14/21 [Trelegy Ellipta 100-62.5-25] L.acidoph,Paracasei, B.lactis 1 cap PO HS 03/01/20 08/14/21 [Probiotic] Montelukast Sodium [Singulair] 10 mg PO HS 04/05/20 08/14/21 Losartan Potassium 50 mg PO DAILY 06/11/20 08/14/21 Furosemide [Lasix] 20 mg PO DAILY 06/30/20 08/14/21 Cholecalciferol [Vitamin D3 (25 25 mcg PO DAILY 04/12/21 08/14/21 Mcg = 1000 Iu)] Aspirin EC [Ecotrin Low Dose] 162 mg PO HS 08/06/21 08/14/21 Rivaroxaban [Xarelto] 15 mg PO HS 08/06/21 08/14/21 amLODIPine [Norvasc] 7.5 mg PO HS 08/06/21 08/14/21 Previous Rx's Medication Instructions Recorded Albuterol Inhaler [Ventolin Hfa 2 puff INHALATION RT-QID PRN #1 gm 08/08/21 Inhaler] Acetaminophen Tab [Tylenol] 650 mg PO Q6HR PRN tab 08/17/21 Atorvastatin [Lipitor] 40 mg PO HS #30 tab 08/17/21 Calcium Carbonate [Tums] 1,000 mg PO Q4HR PRN tab 08/17/21 Famotidine [Pepcid] 20 mg PO DAILY 14 Days #14 tablet 08/17/21 Gabapentin [Neurontin] 100 mg PO TID #12 cap 08/17/21 Metoprolol Tartrate [Lopressor] 50 mg PO BID 30 Days #60 tab 08/17/21 dexAMETHasone [Decadron] 4 mg PO DAILY 5 Days #5 tablet 08/17/21 Cephalexin [Keflex] 500 mg PO Q6HR #40 cap 12/19/21 Allergies Allergy/AdvReac Type Severity Reaction Status Date / Time No Known Allergies Allergy Verified 12/19/21 15:06 Review of Systems ROS Statement: Those systems with pertinent positive or pertinent negative responses have been documented in the HPI. ROS Other: All systems not noted in ROS Statement are negative. Past Medical History Past Medical History: Atrial Fibrillation, Asthma, Coronary Artery Disease (CAD), Cancer, COPD, GERD/Reflux, Hearing Disorder / Deafness, Hyperlipidemia, Hypertension, Osteoarthritis (OA), Pneumonia, Respiratory Disorder, Sleep Apnea/CPAP/BIPAP, Thyroid Disorder Additional Past Medical History / Comment(s): Lung Cancer, cond stable, currently tx on hold, last chemo was in November/2019, diverticular disease, hx SBO w/ resection/colostomy/reversal, prostate cancer w/ radiation tx, skin cancer removed from face, hypothyroid. Hearing aids. Aortic stenosis History of Any Multi-Drug Resistant Organisms: None Reported Past Surgical History: Bowel Resection, Heart Catheterization, Heart Catheterization With Stent, Orthopedic Surgery, Tonsillectomy Additional Past Surgical History / Comment(s): 01/07/19 bronchoscopy w/ BAL, past bronchoscopies/bx, PCI with stent 2006, bilat reconstructive ear surgery/gland removed under jaw, bowel resection d/t rupture with colostomy later reversed, L cataract removal, demetra fundoloplasty, bilat total shoulders/knees, L knee arthroscopy x 2, EGD, colonoscopy, prostate bx, bilat exciscion gynecomastia, skin cancer removals. Heart cath, [facility] 07/06/20 Past Anesthesia/Blood Transfusion Reactions: No Reported Reaction, Motion Sickness Date of Last Stent Placement:: 2006 Past Psychological History: No Psychological Hx Reported Smoking Status: Former smoker Past Alcohol Use History: None Reported Past Drug Use History: None Reported - Past Family History Mother Family Medical History: Cancer Additional Family Medical History / Comment(s): MULTIPLE MYLOMA Father Family Medical History: Cancer Additional Family Medical History / Comment(s): LUNG CANCER Sister(s) Family Medical History: Cancer Additional Family Medical History / Comment(s): sister had rectal cancer. Son(s) Family Medical History: Cancer Additional Family Medical History / Comment(s): Son has hodgkins lymphoma General Exam Limitations: no limitations General appearance: alert, in no apparent distress Head exam: Present: atraumatic, normocephalic, normal inspection Eye exam: Present: normal appearance, PERRL, EOMI. Absent: scleral icterus, conjunctival injection, periorbital swelling ENT exam: Present: normal exam, normal oropharynx, mucous membranes moist Neck exam: Present: normal inspection, full ROM. Absent: tenderness, meningismus, lymphadenopathy Respiratory exam: Present: normal lung sounds bilaterally. Absent: respiratory distress, wheezes, rales, rhonchi, stridor Cardiovascular Exam: Present: regular rate, normal rhythm, normal heart sounds. Absent: systolic murmur, diastolic murmur, rubs, gallop, clicks GI/Abdominal exam: Present: soft, tenderness, normal bowel sounds. Absent: distended, guarding, rebound, rigid Back exam: Absent: CVA tenderness (R), CVA tenderness (L) Neurological exam: Present: alert Skin exam: Present: warm, dry, intact, normal color. Absent: rash Course Vital Signs 04/27/22 04/27/22 06:47 06:53 Temperature 98.3 F Pulse Rate 75 Respiratory 22 Rate Blood Pressure 143/97 O2 Sat by Pulse 91 L 90 L Oximetry Medical Decision Making - Lab Data Result diagrams: 04/27/22 07:11 04/27/22 07:11 Lab Results 04/27/22 04/27/22 04/27/22 Range/Units 07:11 07:11 07:11 WBC 8.8 (3.8-10.6) k/uL RBC 4.15 L (4.30-5.90) m/uL Hgb 12.1 L (13.0-17.5) gm/dL Hct 37.3 L (39.0-53.0) % MCV 89.8 (80.0-100.0) fL MCH 29.2 (25.0-35.0) pg MCHC 32.5 (31.0-37.0) g/dL RDW 15.2 (11.5-15.5) % Plt Count 202 (150-450) k/uL MPV 7.8 Neutrophils % 81 % Lymphocytes % 8 % Monocytes % 7 % Eosinophils % 1 % Basophils % 0 % Neutrophils # 7.1 (1.3-7.7) k/uL Lymphocytes # 0.7 L (1.0-4.8) k/uL Monocytes # 0.6 (0-1.0) k/uL Eosinophils # 0.1 (0-0.7) k/uL Basophils # 0.0 (0-0.2) k/uL PT 12.6 H (9.0-12.0) sec INR 1.2 H (<1.2) APTT 33.0 H (22.0-30.0) sec Sodium 132 L (137-145) mmol/L Potassium 4.9 (3.5-5.1) mmol/L Chloride 99 (98-107) mmol/L Carbon Dioxide 23 (22-30) mmol/L Anion Gap 10 mmol/L BUN 24 H (9-20) mg/dL Creatinine 1.46 H (0.66-1.25) mg/dL Est GFR (CKD-EPI)AfAm 50 (>60 ml/min/1.73 sqM) Est GFR (CKD-EPI)NonAf 44 (>60 ml/min/1.73 sqM) Glucose 99 (74-99) mg/dL Plasma Lactic Acid Vel (0.7-2.0) mmol/L Calcium 8.8 (8.4-10.2) mg/dL Total Bilirubin 1.1 (0.2-1.3) mg/dL AST 68 H (17-59) U/L ALT 51 H (4-49) U/L Alkaline Phosphatase 87 (38-126) U/L Total Protein 6.0 L (6.3-8.2) g/dL Albumin 3.1 L (3.5-5.0) g/dL Amylase 61 (30-110) U/L Lipase 299 (23-300) U/L 04/27/22 Range/Units 07:11 WBC (3.8-10.6) k/uL RBC (4.30-5.90) m/uL Hgb (13.0-17.5) gm/dL Hct (39.0-53.0) % MCV (80.0-100.0) fL MCH (25.0-35.0) pg MCHC (31.0-37.0) g/dL RDW (11.5-15.5) % Plt Count (150-450) k/uL MPV Neutrophils % % Lymphocytes % % Monocytes % % Eosinophils % % Basophils % % Neutrophils # (1.3-7.7) k/uL Lymphocytes # (1.0-4.8) k/uL Monocytes # (0-1.0) k/uL Eosinophils # (0-0.7) k/uL Basophils # (0-0.2) k/uL PT (9.0-12.0) sec INR (<1.2) APTT (22.0-30.0) sec Sodium (137-145) mmol/L Potassium (3.5-5.1) mmol/L Chloride (98-107) mmol/L Carbon Dioxide (22-30) mmol/L Anion Gap mmol/L BUN (9-20) mg/dL Creatinine (0.66-1.25) mg/dL Est GFR (CKD-EPI)AfAm (>60 ml/min/1.73 sqM) Est GFR (CKD-EPI)NonAf (>60 ml/min/1.73 sqM) Glucose (74-99) mg/dL Plasma Lactic Acid Vel 1.4 (0.7-2.0) mmol/L Calcium (8.4-10.2) mg/dL Total Bilirubin (0.2-1.3) mg/dL AST (17-59) U/L ALT (4-49) U/L Alkaline Phosphatase (38-126) U/L Total Protein (6.3-8.2) g/dL Albumin (3.5-5.0) g/dL Amylase (30-110) U/L Lipase (23-300) U/L Disposition Clinical Impression: Adenocarcinoma of lung, stage 4, Acute exacerbation of chronic obstructive pulmonary disease (COPD), Pneumonia, Abdominal pain, Hypoxia Disposition: ADMITTED IP TO THIS HOSP Condition: Poor Referrals: Roxie Melendez DO [Primary Care Provider] - 1-2 days Time of Disposition: 09:53
[2022-04-27 07:33] LABS: Basophils % (A) 0 %; Eosinophils # (A) 0.1 k/uL (0-0.7); Eosinophils % (A) 1 %; HCT 37.3 % (39.0-53.0); HGB 12.1 gm/dL (13.0-17.5); Lymphocytes # (A) 0.7 k/uL (1.0-4.8); Lymphocytes % (A) 8 %; MCH 29.2 pg (25.0-35.0); MCHC 32.5 g/dL (31.0-37.0); MCV 89.8 fL (80.0-100.0); Mean Platelet Volume 7.8; Monocytes # (A) 0.6 k/uL (0-1.0); Monocytes % (A) 7 %; Neutrophils # (A) 7.1 k/uL (1.3-7.7); Neutrophils % (A) 81 %; Platelet Count 202 k/uL (150-450); RBC 4.15 m/uL (4.30-5.90); RDW 15.2 % (11.5-15.5); WBC 8.8 k/uL (3.8-10.6)
[2022-04-27 07:47] LABS: INR 1.2 (<1.2); Prothrombin Time 12.6 sec (9.0-12.0)
[2022-04-27 08:03] LABS: Albumin 3.1 g/dL (3.5-5.0); Calcium 8.8 mg/dL (8.4-10.2); Total Bilirubin 1.1 mg/dL (0.2-1.3)
[2022-04-27 08:12] LABS: Potassium 4.9 mmol/L (3.5-5.1)
--- NOTE | 2022-04-27 08:54 | CT ---
EXAMINATION TYPE: CT abdomen pelvis w con DATE OF EXAM: 04/27/2022 COMPARISON: PET/CT 01/29/2020 INDICATION: constipation, lung CA DLP: 1315.5 mGycm, Automated exposure control for dose reduction was used. CONTRAST: 80 mL of Isovue 300. Study performed without Oral Contrast TECHNIQUE: Axial images were obtained from above the diaphragm to the pubic rami in the axial plane a t 5 mm thick sections. Reconstructed images are reviewed on the computer in the coronal plane. FINDINGS: Limited CT sections are obtained the lung bases. There is a consolidation at the right lung base. Sm all bilateral pleural effusions are present. Vascular calcification and coronary vessels. Prior aorti c valve surgery is evident.. CT ABDOMEN: Liver: Normal Spleen: Normal Pancreas: Normal Adrenal glands: The adrenal glands are normal. Gallbladder: Cholelithiasis is present. Kidneys: No masses are evident. No hydronephrosis is present. Small cortical renal cysts in the inf erior pole right kidney. Delayed images were obtained through the kidneys, which remain unremarkable . Aorta: Vascular calcification is within the aorta. Inferior vena cava: Normal. CT PELVIS: Multiple diverticuli are present within the colon. This study is without oral contrast limiting bowel evaluation. Appendix: Not identified. Correlate with surgical history. Urinary bladder: Normal. Genitourinary structures: Markers appear to be present within the small prostate. Osseous structures: There is a sclerotic area in the T10 level superior endplate. Metastatic disease excluded. Small Schmorl's node formations may be within the endplates of the lumbar vertebral bodies. Additional sclerotic area is in the right aspect of L3 . The T10 level was abnormal on the PET scan. IMPRESSIONS: 1. Consolidation right lung base. Small bilateral pleural effusions are present. These are interval findings from January 2022. 2. Diverticulosis without acute diverticulitis. 3. Small right renal cortical cyst. 4. Sclerotic T10 and L3 vertebral bodies.
--- NOTE | 2022-04-27 09:22 | XR ---
EXAMINATION TYPE: XR chest 2V DATE OF EXAM: 04/27/2022 COMPARISON: 03/09/2022 INDICATION: Short of breath, history of lung cancer TECHNIQUE: Frontal and lateral views of the chest are obtained. FINDINGS: The heart size is mildly prominent. The pulmonary vasculature is prominent. There is a posterior pleural effusion. Mild diffuse increased lung markings are present. This may be more focal in the lower lung field possibly left. Correlate for atypical pulmonary edema and pneumoni a. Patient's known lung cancer not identified. Prior cardiac valve surgery is evident. Bilateral shou lder prostheses are present. IMPRESSION: 1. Focal correlation recommended for atypical pulmonary edema or pneumonia left lower lobe. 2. Cardiomegaly with prominent pulmonary vascular markings and diffuse bilateral lung infiltrates, co rrelate for congestive heart failure. 3. Follow-up can be performed as clinically indicated.
[2022-04-27] MEDS ORDERED: IPRATROPIUM-ALBUTEROL 3 ML NEB INHALATION STA (09:50)
[2022-04-27] MEDS ORDERED: AZITHROMYCIN 500 MG in SODIUM CHLORIDE 0.9% 250 ML IVPB STA (09:51)
[2022-04-27] MEDS ORDERED: methylPREDNISolone SOD SUCCI 125 MG/2 ML VIAL IV STA (09:52)
[2022-04-27] MEDS ORDERED: ALBUTEROL NEBULIZED 2.5 MG/3 ML INHALATION PRN (09:56)
[2022-04-27] MEDS ORDERED: PNEUMONIA PROTOCOL UTILIZED 1 EACH MISC PO PRN (09:56)
[2022-04-27] MEDS ORDERED: ONDANSETRON 4 MG/2 ML VIAL IVP STA (11:50)
[2022-04-27] MEDS: IPRATROPIUM-ALBUTEROL 3 ML NEB INHALATION SCH ×3 (11:51→20:54)
--- NOTE | 2022-04-27 13:09 | P.CNPUL ---
History of Present Illness Consult date: 04/27/22 Requesting physician: Tres Mina Reason for consult: dyspnea, hypoxemia, abnormal CXR/CT Chief complaint: Abdominal pain, shortness of breath History of present illness: This is a very 82-year-old male patient who follows with Dr. Melendez as his primary care provider. He has a history of coronary artery disease with previous stent placements, hypothyroidism, atrial fibrillation anticoagulated with Xarelto, BPH, hypertension, obstructive sleep apnea, gastroesophageal reflux disease, previous TAVR procedure. He has COPD and follows with Dr. Sheppard in our office. 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 His 2021 PET scan revealed stable medial right upper lung hypermetabolic nodule. There is new suspicious hypermetabolic destruction destructive lesion involving the anterior T10 vertebrae suspicious for early osseous metastases metastatic disease. He did undergo radiation to the spine, right lung and brain. MRI of the brain from 04/07/2022 revealed right cerebellar lesion continued to show thin rim enhancement. Likely responding to site of treated disease. He is due for repeat scans next month. He presented here to the emergency room early this morning with complaints of abdominal discomfort and shortness of breath. ET scan of the abdomen revealed consolidation of the right lung base. Small bilateral pleural effusions. These are interval findings compared to January 2022. There is diverticulosis without acute diverticulitis. Small right renal cortical cyst. Sclerotic T10 and L3 vertebral bodies. Chest x-ray revealed focal correlation for atypical pulmonary edema versus left lower lobe pneumonia. Cardiomegaly with prominent, and a vascular markings and diffuse bilateral lung infiltrates possible congestive heart failure. He is seen in consultation in the emergency room. He is sitting up on the stretcher. Awake and alert. He is coughing up blood-tinged sputum. He is afebrile. He was hypoxemic and is currently 88% O2 saturation on 6 L nasal cannula. White count 8.8. Hemoglobin 12.1. Sodium 132. Potassium 4.9. BUN 24. Creatinine 1.46. AST 68. ALT 51. ProBNP 2920. Amylase 61. Lipase 299. Hernandez virus by PCR not detected. He was initiated on ceftriaxone and azithromycin along with DuoNeb inhalations. Blood cultures are pending. Pro-calcitonin pending. Sputum culture pending. Review of Systems REVIEW OF SYSTEMS: CONSTITUTIONAL: Denies any recent significant weight loss or weight gain. EYES: Denies change in vision. EARS, NOSE, MOUTH, THROAT: Denies headaches, denies sore throat. CARDIOVASCULAR: Denies chest pain, palpitations or syncopal episodes. RESPIRATORY: Positive for shortness of breath, cough, congestion,hemoptysis. GASTROINTESTINAL: Positive for abdominal pain, poor appetite GENITOURINARY: Denies hematuria, denies infections. MUSKULOSKELETAL: Denies pain, denies swelling. INTEGUMENTARY: Denies rash, denies eczema. NEUROLOGICAL: Denies recent memory loss, no recent seizure activity. PSYCHIATRIC: Denies anxiety, denies depression. HEMATOLOGIC/LYMPHATIC: Denies anemia, denies enlarged lymph nodes. Past Medical History Past Medical History: Atrial Fibrillation, Asthma, Coronary Artery Disease (CAD), Cancer, COPD, GERD/Reflux, Hearing Disorder / Deafness, Hyperlipidemia, Hypertension, Osteoarthritis (OA), Pneumonia, Respiratory Disorder, Sleep Apnea/CPAP/BIPAP, Thyroid Disorder Additional Past Medical History / Comment(s): Lung Cancer, cond stable, currently tx on hold, last chemo was in November/2019, diverticular disease, hx SBO w/ resection/colostomy/reversal, prostate cancer w/ radiation tx, skin cancer removed from face, hypothyroid. Hearing aids. Aortic stenosis History of Any Multi-Drug Resistant Organisms: None Reported Past Surgical History: Bowel Resection, Heart Catheterization, Heart Catheterization With Stent, Orthopedic Surgery, Tonsillectomy Additional Past Surgical History / Comment(s): 01/07/19 bronchoscopy w/ BAL, past bronchoscopies/bx, PCI with stent 2006, bilat reconstructive ear surgery/gland removed under jaw, bowel resection d/t rupture with colostomy later reversed, L cataract removal, demetra fundoloplasty, bilat total shoulders/knees, L knee arthroscopy x 2, EGD, colonoscopy, prostate bx, bilat exciscion gynecomastia, skin cancer removals. Heart cath, [facility] 07/06/20 Past Anesthesia/Blood Transfusion Reactions: No Reported Reaction, Motion Sickness Date of Last Stent Placement:: 2006 Past Psychological History: No Psychological Hx Reported Smoking Status: Former smoker Past Alcohol Use History: None Reported Past Drug Use History: None Reported - Past Family History Mother Family Medical History: Cancer Additional Family Medical History / Comment(s): MULTIPLE MYLOMA Father Family Medical History: Cancer Additional Family Medical History / Comment(s): LUNG CANCER Sister(s) Family Medical History: Cancer Additional Family Medical History / Comment(s): sister had rectal cancer. Son(s) Family Medical History: Cancer Additional Family Medical History / Comment(s): Son has hodgkins lymphoma Medications and Allergies Home Medications Medication Instructions Recorded Confirmed Type FLUoxetine HCL [PROzac] 20 mg PO DAILY 08/05/14 04/27/22 History Levothyroxine Sodium [Synthroid] 50 mcg PO DAILY 08/05/14 04/27/22 History Omeprazole [PriLOSEC] 40 mg PO HS 08/05/14 04/27/22 History Folic Acid 1 mg PO DAILY 02/12/18 04/27/22 History Montelukast Sodium [Singulair] 10 mg PO HS 04/05/20 04/27/22 History Losartan Potassium 50 mg PO DAILY 06/11/20 04/27/22 History Furosemide [Lasix] 20 mg PO DAILY 06/30/20 04/27/22 History Atorvastatin [Lipitor] 40 mg PO HS #30 tab 08/17/21 04/27/22 Rx Albuterol Sulfate [Ventolin HFA] 2 puff INHALATION RT-Q4H PRN 04/27/22 04/27/22 History Amiodarone [Cordarone] 200 mg PO BID 04/27/22 04/27/22 History Fluticasone Propion/Salmeterol 1 puff INHALATION RT-BID 04/27/22 04/27/22 History [Advair 250-50 Diskus] Meclizine [Antivert] 25 mg PO TID PRN 04/27/22 04/27/22 History Metoprolol Tartrate [Lopressor] 25 mg PO BID 04/27/22 04/27/22 History Rivaroxaban [Xarelto] 20 mg PO W/SUPPER 04/27/22 04/27/22 History Sertraline [Zoloft] 50 mg PO DAILY 04/27/22 04/27/22 History Tamsulosin HCl [Flomax] 0.4 mg PO DAILY 04/27/22 04/27/22 History predniSONE 5 mg PO DAILY 04/27/22 04/27/22 History Allergies Allergy/AdvReac Type Severity Reaction Status Date / Time No Known Allergies Allergy Verified 04/27/22 10:57 Physical Exam Vitals: Vital Signs Temp Pulse Resp BP Pulse Ox 04/27/22 11:58 62 18 04/27/22 11:51 68 18 04/27/22 10:14 64 22 04/27/22 10:06 64 18 04/27/22 09:00 63 20 88 L 04/27/22 08:00 65 20 156/96 91 L 04/27/22 07:26 69 21 91 L 04/27/22 06:53 90 L 04/27/22 06:47 98.3 F 75 22 143/97 91 L Intake and Output 04/26/22 04/27/22 04/27/22 22:59 06:59 14:59 Other: Weight 92.986 kg GENERAL EXAM: Alert, pleasant 82-year-old male patient, on 6 L nasal cannula, fairly comfortable in no apparent distress. HEAD: Normocephalic. EYES: Normal reaction of pupils, equal size. NOSE: Clear with pink turbinates. THROAT: No erythema or exudates. NECK: No masses, no JVD. CHEST: No chest wall deformity. LUNGS: Equal air entry with crackles in the right lung base. CVS: S1 and S2 normal with no audible murmur, regular rhythm. ABDOMEN: No hepatosplenomegaly, normal bowel sounds, no guarding or rigidity. SPINE: No scoliosis or deformity SKIN: No rashes CENTRAL NERVOUS SYSTEM: No focal deficits, tone is normal in all 4 extremities. EXTREMITIES: There is no peripheral edema. No clubbing, no cyanosis. Peripheral pulses are intact. Results - Laboratory Findings CBC and BMP: 04/27/22 07:11 04/27/22 07:11 PT/INR, D-dimer PT 12.6 sec (9.0-12.0) H 04/27/22 07:11 INR 1.2 (<1.2) H 04/27/22 07:11 Abnormal lab findings: Abnormal Labs 04/27/22 04/27/22 04/27/22 07:11 07:11 07:11 RBC 4.15 L Hgb 12.1 L Hct 37.3 L Lymphocytes # 0.7 L PT 12.6 H INR 1.2 H APTT 33.0 H Sodium 132 L BUN 24 H Creatinine 1.46 H AST 68 H ALT 51 H Total Protein 6.0 L Albumin 3.1 L - Diagnostic Findings Chest x-ray: image reviewed Assessment and Plan Assessment: Abdominal pain of unclear etiology. CT scan of the abdomen and pelvis revealed diverticulosis without acute diverticulitis. Small right renal cortical cysts. Acute hypoxemic respiratory failure secondary to early pneumonia in the right lung base with consolidation noted on CT scan of the abdomen with small bilateral pleural effusions, currently on 6 L O2 nasal cannula Acute on chronic diastolic congestive heart failure History of atrial fibrillation, anticoagulated with Xarelto History of previous COVID-19 infection in June 2021 receiving monoclonal antibodies. He is vaccinated and boosted. CoVID screen this admission negative History of metastatic left lung pulmonary adenocarcinoma initial diagnosis in 2016 most recently found to have metastatic lesions to the right lung, spine and brain status post radiation in February 2022 Coronary artery disease with previous stent placement 3 History of aortic valve stenosis status post TAVR procedure Hyperlipidemia Chronic kidney disease History of small bowel resection with ostomy and subsequent reversal History of prostate cancer status post radiation History of skin cancer status post resection Hypothyroidism Hypertension Plan: The patient was seen and evaluated Computed tomography scan, chest x-ray and labs reviewed Continue ceftriaxone and azithromycin for now Procalcitonin pending Blood culture and sputum culture pending Continue bronchodilators Titrate the FiO2 as tolerated We will continue to follow and make further recommendations based on his clin ical status I have personally seen and examined the patient, performed the documentation and the assessment and plan as written. Number of minutes spent on the visit: 20. I have personally seen and examined the patient and reviewed the documentation. I performed a joint evaluation with the nurse practitioner in this evaluation was done more than 30 minutes. I fully agree with the documentation above and the plan of care. A joint evaluation done with the nurse practitioner. A known case of stage IV lung cancer who recently received radiation therapy to abnormal metastatic spots which involved lungs/right apex and spine and brain. Patient is presenting with symptoms and signs suggestive of a right lower lobe pneumonia, currently on a combination of antibiotics. We'll check sputum Gram stain and culture. Multiple comorbidities as mentioned. We'll continue to follow. Is currently on oxygen for hypoxic respiratory failure on 6 L per minute nasal cannula
[2022-04-27] MEDS ORDERED: ACETAMINOPHEN TAB 325 MG TAB PO PRN (17:13)
[2022-04-27] MEDS ORDERED: NALOXONE 0.4 MG/ML 1 ML VIAL IV PRN (17:13)
[2022-04-27] MEDS ORDERED: CALCIUM CARBONATE 500 MG CHEWABLE PO PRN (17:13)
--- NOTE | 2022-04-27 17:14 | P.HPIM ---
History of Present Illness H&P Date: 04/27/22 Chief Complaint: Short of breath History present complaint: This is a pleasant 82-year-old patient of Dr. Roxie Melendez. Chronic stable medical conditions include coronary artery disease, CHF with EF of 50-65%, moderate aortic stenosis with sclerosis, atrial fibrillation, COPD, GERD, hyperlipidemia, hypertension, primary osteoarthritis,(s) sleep apnea, hypothyroid. 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 treated with chemotherapy -being followed with Dr. Rutherford. last chemotherapy in October 2019 History of Demetra fundoplication, has had small bowel obstruction with resection colostomy and reversal of the same. prostate cancer treated with radiation.. Bronchoscopy in March 2021 negative for malignant cells. June 2021 had COVID 19. Patient now presents with increasing shortness of breath last 3-4 days. Congested cough. Able to expectorate only a little amount. Fevers. Poor appetite. Not been sleeping well. Normally uses a cane. Currently just become very weak in the last 2-3 days. No bowel movement for 3 days. Also complaining of some abdominal discomfort. No nausea vomiting. Review of systems: GEN.: Fever, tired, EYES: None HEENT: Chronic dizziness NECK: None RESPIRATORY: As above CARDIOVASCULAR: No chest pain GASTROINTESTINAL: Constipation GENITOURINARY: None MUSCULOSKELETAL: Some joint pains LYMPHATICS: None HEMATOLOGICAL: None PSYCHIATRY: None NEUROLOGICAL: None Past medical history: Include Coronary artery disease with stent , stage IV adenocarcinoma of the lung on chemotherapy-last time in October 2019, history of Demetra fundoplication, COPD in an ex-smoker, hypothyroidism, essential hypertension, hyperlipidemia, obstructive sleep apnea, CHF with diastolic dysfunction, moderate aortic stenosis with sclerosis. January 2020 - GI bleed. EGD was unremarkable. B ronchomalacia, atrial fibrillation, COVID 19 Social history: . Smoked from age of 14 through 1982 . alcohol occasionally. Retired. Uses a cane Family history: sister had rectal cancer Physical examination: VITAL SIGNS: 98.3, 75, 22, 143/97, 91% on 3 L GENERAL: BMI 27.8, reclining in bed, short of breath, tired EYES: Pupils equal. Conjunctiva normal. HEENT: External appearance of nose and ears normal, oral cavity normal. NECK: JVD not raised; masses not palpable. HEART: First and second heart sounds are normal; no edema. LUNGS: Respiratory rate increased, decreased breath sounds. Coarse basal crackles. ABDOMEN: Soft, nontender, , liver spleen not palpable, no masses palpable. PSYCH: Alert and oriented x3; mood and affect anxious NEUROLOGICAL: Cranial nerves grossly intact; no facial asymmetry, power and sensation grossly intact. LYMPHATICS: No lymph nodes palpable in the axilla and neck INVESTIGATIONS, reviewed in the clinical context: White count 8.8 hemoglobin 12.1 platelets 202 sodium 132 potassium 4.9. 24 creatinine 1.46 COVID 19: Not detected Chest x-ray film personally reviewed by me-acute and/or chronic changes Computed tomography scan abdomen and pelvis: Consolidation right lung base, small bilateral pleural effusions. Diverticulosis. Sclerosis of T10 and L3 [address] angiogram of the neck: 70% stenosis origin right internal carotid artery and 30 (stenosis origin left internal carotid artery. 50% stenosis of distal left vertebral artery. Assessment and plan: -Pneumonia, suspect gram-negative organism. IV ceftriaxone. Mucinex. -Acute constipation. Lactulose 20 g. Add Metamucil. -Acute COPD exacerbation in a ex-smoker. DuoNeb. Nebulized Pulmicort and long-acting beta agonist . -Paroxysmal atrial fibrillation, currently in sinus rhythm Lopressor 25 mg by mouth twice a day. Xarelto 20 mg daily at bedtime -Chronic tracheal bronchomalacia -Colonic diverticulosis, asymptomatic - Demetra fundoplication, -Coronary artery disease with a prior history of stent Aspirin, Lopressor, -Stage IV adenocarcinoma of the lung received chemotherapy. Consult pulmonary -Hypothyroidism Synthroid 50 g daily -Essential hypertension Cozaar 50 mg daily, Lopressor 25 twice a day -Obstructive sleep apnea -Chronic congestive heart failure from diastolic dysfunction EF 50-60%. Stable Lasix 20 mg daily -Moderate aortic stenosis with sclerosis nonrheumatic Follow clinically -Primary osteoarthritis multiple joints Use. Medications as needed -Chronic kidney disease. 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 Follow clinically - chronic 70% stenosis origin right ICA. IV ceftriaxone. Mucinex. Nebulized bronchodilators. IV Solu-Medrol. Resume home medications. Continue xarelto. Consult pulmonary. Given the complexity and severity of patient's condition expect the patient to be in the hospital at least for 2 overnights Past Medical History Past Medical History: Atrial Fibrillation, Asthma, Coronary Artery Disease (CAD), Cancer, COPD, GERD/Reflux, Hearing Disorder / Deafness, Hyperlipidemia, Hypertension, Osteoarthritis (OA), Pneumonia, Respiratory Disorder, Sleep Apne a/CPAP/BIPAP, Thyroid Disorder Additional Past Medical History / Comment(s): Lung Cancer, cond stable, currently tx on hold, last chemo was in November/2019, diverticular disease, hx SBO w/ resection/colostomy/reversal, prostate cancer w/ radiation tx, skin cancer removed from face, hypothyroid. Hearing aids. Aortic stenosis History of Any Multi-Drug Resistant Organisms: None Reported Past Surgical History: Bowel Resection, Heart Catheterization, Heart Catheterization With Stent, Orthopedic Surgery, Tonsillectomy Additional Past Surgical History / Comment(s): 01/07/19 bronchoscopy w/ BAL, past bronchoscopies/bx, PCI with stent 2006, bilat reconstructive ear surgery/gland removed under jaw, bowel resection d/t rupture with colostomy later reversed, L cataract removal, demetra fundoloplasty, bilat total shoulders/knees, L knee arthroscopy x 2, EGD, colonoscopy, prostate bx, bilat exciscion gynecomastia, skin cancer removals. Heart cath, ALEA 07/06/20 Past Anesthesia/Blood Transfusion Reactions: No Reported Reaction, Motion Sickness Date of Last Stent Placement:: 2006 Past Psychological History: No Psychological Hx Reported Smoking Status: Former smoker Past Alcohol Use History: None Reported Past Drug Use History: None Reported - Past Family History Mother Family Medical History: Cancer Additional Family Medical History / Comment(s): MULTIPLE MYLOMA Father Family Medical History: Cancer Additional Family Medical History / Comment(s): LUNG CANCER Sister(s) Family Medical History: Cancer Additional Family Medical History / Comment(s): sister had rectal cancer. Son(s) Family Medical History: Cancer Additional Family Medical History / Comment(s): Son has hodgkins lymphoma Medications and Allergies Home Medications Medication Instructions Recorded Confirmed Type FLUoxetine HCL [PROzac] 20 mg PO DAILY 08/05/14 04/27/22 History Levothyroxine Sodium [Synthroid] 50 mcg PO DAILY 08/05/14 04/27/22 History Omeprazole [PriLOSEC] 40 mg PO HS 08/05/14 04/27/22 History Folic Acid 1 mg PO DAILY 02/12/18 04/27/22 History Montelukast Sodium [Singulair] 10 mg PO HS 04/05/20 04/27/22 History Losartan Potassium 50 mg PO DAILY 06/11/20 04/27/22 History Furosemide [Lasix] 20 mg PO DAILY 06/30/20 04/27/22 History Atorvastatin [Lipitor] 40 mg PO HS #30 tab 08/17/21 04/27/22 Rx Albuterol Sulfate [Ventolin HFA] 2 puff INHALATION RT-Q4H PRN 04/27/22 04/27/22 History Amiodarone [Cordarone] 200 mg PO BID 04/27/22 04/27/22 History Fluticasone Propion/Salmeterol 1 puff INHALATION RT-BID 04/27/22 04/27/22 History [Advair 250-50 Diskus] Meclizine [Antivert] 25 mg PO TID PRN 04/27/22 04/27/22 History Metoprolol Tartrate [Lopressor] 25 mg PO BID 04/27/22 04/27/22 History Rivaroxaban [Xarelto] 20 mg PO W/SUPPER 04/27/22 04/27/22 History Sertraline [Zoloft] 50 mg PO DAILY 04/27/22 04/27/22 History Tamsulosin HCl [Flomax] 0.4 mg PO DAILY 04/27/22 04/27/22 History predniSONE 5 mg PO DAILY 04/27/22 04/27/22 History Allergies Allergy/AdvReac Type Severity Reaction Status Date / Time No Known Allergies Allergy Verified 04/27/22 10:57 Physical Exam Vitals: Vital Signs Temp Pulse Resp BP Pulse Ox 04/27/22 15:33 66 20 04/27/22 15:26 94 L 04/27/22 15:24 66 20 04/27/22 15:00 64 22 90 L 04/27/22 14:00 66 20 158/80 04/27/22 13:00 65 22 148/82 04/27/22 12:00 63 20 150/80 90 L 04/27/22 11:58 62 18 04/27/22 11:51 68 18 04/27/22 11:00 66 20 154/88 89 L 04/27/22 10:14 64 22 04/27/22 10:06 64 18 04/27/22 10:00 62 18 86 L 04/27/22 09:00 63 20 88 L 04/27/22 08:00 65 20 156/96 91 L 04/27/22 07:26 69 21 91 L 04/27/22 06:53 90 L 04/27/22 06:47 98.3 F 75 22 143/97 91 L Intake and Output 04/27/22 04/27/22 04/27/22 06:59 14:59 22:59 Other: Weight 92.986 kg Results CBC & Chem 7: 04/27/22 07:11 04/27/22 07:11 Labs: Abnormal Lab Results - Last 24 Hours (Table) 04/27/22 04/27/22 04/27/22 Range/Units 07:11 07:11 07:11 RBC 4.15 L (4.30-5.90) m/uL Hgb 12.1 L (13.0-17.5) gm/dL Hct 37.3 L (39.0-53.0) % Lymphocytes # 0.7 L (1.0-4.8) k/uL PT 12.6 H (9.0-12.0) sec INR 1.2 H (<1.2) APTT 33.0 H (22.0-30.0) sec Sodium 132 L (137-145) mmol/L BUN 24 H (9-20) mg/dL Creatinine 1.46 H (0.66-1.25) mg/dL AST 68 H (17-59) U/L ALT 51 H (4-49) U/L Total Protein 6.0 L (6.3-8.2) g/dL Albumin 3.1 L (3.5-5.0) g/dL
[2022-04-27 17:20] LABS: Appearance,Urine Clear (Clear); Bilirubin,Urine Negative (Negative); Blood,Urine Negative (Negative); Color,Urine Yellow; Glucose,Urine (UA) Negative (Negative); Ketones,Urine Negative (Negative); Leukocyte Esterase,Urine Negative (Negative); Nitrite,Urine Negative (Negative); PH, Urine 6.5 (5.0-8.0); Protein,Urine 1+ (Negative); RBC,Urine 1 /hpf (0-5); WBC,Urine 1 /hpf (0-5)
[2022-04-27] MEDS ORDERED: LACTULOSE 20 GM/30 ML CUP PO ONE (17:30)
[2022-04-27 17:35] LABS: Specific Gravity,Urine 1.048 (1.001-1.035)
[2022-04-27] MEDS: guaiFENesin 600 MG TABLET.ER PO SCH ×2 (17:40→21:22)
[2022-04-27] MEDS: methylPREDNISolone SOD SUCCI 40 MG/ML 1 ML VIAL IV SCH (17:40)
[2022-04-27] MEDS: PSYLLIUM HUSK 100% 6 GM PACKET PO SCH (17:41)
[2022-04-27] MEDS: RIVAROXABAN 20 MG TAB PO SCH (18:03)
[2022-04-27] MEDS: FORMOTEROL FUMARATE 20 MCG/2 ML NEBU INHALATION SCH (20:54)
[2022-04-27] MEDS: BUDESONIDE 1 MG/2 ML NEBU INHALATION SCH (20:54)
[2022-04-27] MEDS: ATORVASTATIN 40 MG TAB PO SCH (21:22)
[2022-04-27] MEDS: ZOLPIDEM 5 MG TAB PO SCH (21:22)
[2022-04-27] MEDS: PANTOPRAZOLE 40 MG TABLET PO SCH (21:22)
[2022-04-27] MEDS: METOPROLOL TARTRATE 25 MG TAB PO SCH (21:22)
[2022-04-27] MEDS: MONTELUKAST 10 MG TAB PO SCH (21:22)
[2022-04-28] MEDS: methylPREDNISolone SOD SUCCI 40 MG/ML 1 ML VIAL IV SCH ×3 (02:06→15:15)
[2022-04-28] MEDS: LEVOTHYROXINE 50 MCG TAB PO SCH (06:15)
[2022-04-28] MEDS: PSYLLIUM HUSK 100% 6 GM PACKET PO SCH (08:21)
[2022-04-28] MEDS: AZITHROMYCIN 500 MG TAB PO SCH (08:21)
[2022-04-28] MEDS: SERTRALINE 50 MG TAB PO SCH (08:22)
[2022-04-28] MEDS: LOSARTAN 50 MG TAB PO SCH (08:22)
[2022-04-28] MEDS: AMIODARONE 200 MG TAB PO SCH (08:22)
[2022-04-28] MEDS: METOPROLOL TARTRATE 25 MG TAB PO SCH ×2 (08:22→21:10)
[2022-04-28] MEDS: FOLIC ACID 1 MG TAB PO SCH (08:22)
[2022-04-28] MEDS: guaiFENesin 600 MG TABLET.ER PO SCH ×4 (08:22→21:10)
[2022-04-28] MEDS: TAMSULOSIN 0.4 MG CAP.ER.24H PO SCH (08:22)
[2022-04-28] MEDS: IPRATROPIUM-ALBUTEROL 3 ML NEB INHALATION SCH ×4 (08:30→20:25)
[2022-04-28] MEDS: FORMOTEROL FUMARATE 20 MCG/2 ML NEBU INHALATION SCH ×2 (08:31→20:25)
[2022-04-28] MEDS: BUDESONIDE 1 MG/2 ML NEBU INHALATION SCH ×2 (08:31→20:26)
[2022-04-28] MEDS ORDERED: FLUoxetine HCL 20 MG CAP PO SCH (09:00)
--- NOTE | 2022-04-28 09:02 | P.GSCN ---
History of Present Illness Consult date: 04/28/22 History of present illness: REASON FOR CONSULTATION: Abdominal pain HISTORY OF PRESENT ILLNESS: The patient is a 82 year old male who presented to the emergency room with exacerbation of chronic obstructive pulmonary disease including violent chronic cough. Reports having trouble breathing. He is on oxygen. Patient reports intractable and regular coughing which then propagated generalized abdominal pain. Since admission, he reports his breathing has improved. He comes in with multiple comorbidities including congestive heart failure, chronic obstructive pulmonary disease, ischemic cardiomyopathy and atrial fibrillation. He denies any specific abdominal pain or food intolerances. No reports of blood in stools. Due to his abdominal pain, general surgery is consulted. At the time assessment, patient denied any abdominal pain. PAST MEDICAL HISTORY: See list and reviewed PAST SURGICAL HISTORY: See list and reviewed MEDICATIONS: See list and reviewed ALLERGIES: See list and reviewed SOCIAL HISTORY: See list and reviewed FAMILY HISTORY: See list and reviewed REVIEW OF ORGAN SYSTEMS: CONSTITUTIONAL: No fevers or chills. No recent weight loss. BMI 27.8 EYES: Denies any trouble with vision. No glasses. HEENT: Has hearing aids. No nosebleeds. No difficulty swallowing. RESPIRATORY: Has obstructive sleep apnea. Has troubles with breathing or dyspnea on exertion. Has chronic obstructive pulmonary disease. On oxygen. Past history of lung cancer. CARDIOVASCULAR: Has hypertensive heart disease including atrial fibrillation. Has congestive heart failure. Has hyperlipidemia. Has cardiac stent placement. Has aortic stenosis. Has coronary artery disease. GASTROINTESTINAL: Denies fatty food intolerance. Denies change in bowel habits and gas bloat. Has gastroesophageal reflux disease. History of bowel resection. Past Demetra fundoplasty. History of diverticular disease and bowel obstruction. GENITOURINARY: Denies any blood in urine. Has increased urinary frequency. NEUROLOGICAL: Denies any numbness or tingling along the distal extremities. No seizure disorders or headaches. MUSCULOSKELETAL: Has back pain, stiffness or joint arthritis. SKIN: History of skin cancer. No rash. PSYCHIATRIC: Has depressive disorder. ENDOCRINE: Has hypothyroidism. Denies any blood sugar glucose intolerance. On chronic steroids. HEME/LYMPHATIC: Denies any lumps and bumps around the neck. No recent deep venous thrombosis. On chronic anticoagulation. ALLERGY/IMMUNOLOGY: No immunoglobulin therapy. No immune deficiencies. History of chemotherapy for lung cancer. BREAST: Denies current breast lumps, pain or nipple discharge. PHYSICAL EXAM: VITALS: Reviewed CONSTITUTIONAL: Well developed and in no acute distress. EYES: Conjuctivae without sclera icterus. Extraocular movements grossly intact. HEAD, EARS, NOSE, THROAT: Moist buccal mucosa. Head is atraumatic, normocephalic. Hears conversational speech. No nasal drainage. NECK: Supple. No JV distention. No thyroidomegaly. RESPIRATORY: Non-labored respirations and equal bilateral excursions. Has nasal cannula oxygen. CARDIOVASCULAR: Palpable 2+ radial pulses. ABDOMEN: Nontender. Nondistended. LYMPH: No neck lymphadenopathy. MUSCULOSKELETAL: No clubbing cyanosis. SKIN: Warm and well perfused with good skin turgor. NEUROLOGIC: Cranial nerves II through XII grossly intact. No focal or lateralizing signs. PSYCH: Appropriate affect. Alert and oriented to person, place and time. Displays appropriate insight. CLINCAL LABS: Reviewed. WBC on admission normal 8.8. Hemoglobin low at 12.1. Creatinine elevated 1.46. AST and ALT elevated. Covid negative. IMAGING: Independently reviewed. CT of the abdomen and pelvis demonstrates small gallstones. No inflammatory changes along the colon or gallbladder. No bowel obstruction. This was my independent interpretation. Yip diverticulosis including the ascending colon. Person. Bowel resection in the lower pelvis. RADIOLOGY: Report reviewed CT abdomen and pelvis demonstrated moderate div erticulosis. Presence of cholelithiasis RECORDS: previous old records reviewed of colonoscopy for GI bleed January 2019 demonstrates severe yip diverticulosis including localized transverse colon colitis. ALEA from 2019 demonstrates severe stenosis. Normal left ventricular function. ASSESSMENT: 1. Abdominal pain 2. Acute exacerbation of chronic obstructive pulmonary disease 3. Atrial fibrillation 4. Oxygen dependent chronic obstructive pulmonary disease 5. Pandiverticulosis 6. Elevated LFTs 7. Gallstones PLAN: 1. Patient seen and evaluated. Patient reports generalized abdominal pain due to vigorous coughing. CT reviewed consistent with gallstones. 2. LFTs mildly elevated. We'll monitor LFTs. 3. Due to acute exacerbation of COPD, recommend hold and/defer any surgical pr evention during this hospitalization. 4. Patient agreeable with care plan. 5. Recommend repeat labs regarding LFTs 6. At this time, patient asymptomatic gallstones ADVANCE DIRECTIVE: Thank you for this kind consultation. Past Medical History Past Medical History: Atrial Fibrillation, Asthma, Coronary Artery Disease (CAD), Cancer, COPD, GERD/Reflux, Hearing Disorder / Deafness, Hyperlipidemia, Hypertension, Osteoarthritis (OA), Pneumonia, Respiratory Disorder, Sleep Apnea/CPAP/BIPAP, Thyroid Disorder Additional Past Medical History / Comment(s): Lung Cancer, cond stable, currently tx on hold, last chemo was in November/2019, diverticular disease, hx SBO w/ resection/colostomy/reversal, prostate cancer w/ radiation tx, skin cancer removed from face, hypothyroid. Hearing aids. Aortic stenosis History of Any Multi-Drug Resistant Organisms: None Reported Past Surgical History: Bowel Resection, Heart Catheterization, Heart Catheterization With Stent, Orthopedic Surgery, Tonsillectomy Additional Past Surgical History / Comment(s): 01/07/19 bronchoscopy w/ BAL, past bronchoscopies/bx, PCI with stent 2006, bilat reconstructive ear surgery/gland removed under jaw, bowel resection d/t rupture with colostomy later reversed, L cataract removal, demetra fundoloplasty, bilat total shoulders/knees, L knee arthroscopy x 2, EGD, colonoscopy, prostate bx, bilat exciscion gynecomastia, skin cancer removals. Heart cath, ALEA 07/06/20 Past Anesthesia/Blood Transfusion Reactions: No Reported Reaction, Motion Sickness Date of Last Stent Placement:: 2006 Past Psychological History: No Psychological Hx Reported Smoking Status: Former smoker Past Alcohol Use History: None Reported Past Drug Use History: None Reported - Past Family History Mother Family Medical History: Cancer Additional Family Medical History / Comment(s): MULTIPLE MYLOMA Father Family Medical History: Cancer Additional Family Medical History / Comment(s): LUNG CANCER Sister(s) Family Medical History: Cancer Additional Family Medical History / Comment(s): sister had rectal cancer. Son(s) Family Medical History: Cancer Additional Family Medical History / Comment(s): Son has hodgkins lymphoma Medications and Allergies Home Medications Medication Instructions Recorded Confirmed Type FLUoxetine HCL [PROzac] 20 mg PO DAILY 08/05/14 04/27/22 History Levothyroxine Sodium [Synthroid] 50 mcg PO DAILY 08/05/14 04/27/22 History Omeprazole [PriLOSEC] 40 mg PO HS 08/05/14 04/27/22 History Folic Acid 1 mg PO DAILY 02/12/18 04/27/22 History Montelukast Sodium [Singulair] 10 mg PO HS 04/05/20 04/27/22 History Losartan Potassium 50 mg PO DAILY 06/11/20 04/27/22 History Furosemide [Lasix] 20 mg PO DAILY 06/30/20 04/27/22 History Atorvastatin [Lipitor] 40 mg PO HS #30 tab 08/17/21 04/27/22 Rx Albuterol Sulfate [Ventolin HFA] 2 puff INHALATION RT-Q4H PRN 04/27/22 04/27/22 History Amiodarone [Cordarone] 200 mg PO BID 04/27/22 04/27/22 History Fluticasone Propion/Salmeterol 1 puff INHALATION RT-BID 04/27/22 04/27/22 History [Advair 250-50 Diskus] Meclizine [Antivert] 25 mg PO TID PRN 04/27/22 04/27/22 History Metoprolol Tartrate [Lopressor] 25 mg PO BID 04/27/22 04/27/22 History Rivaroxaban [Xarelto] 20 mg PO W/SUPPER 04/27/22 04/27/22 History Sertraline [Zoloft] 50 mg PO DAILY 04/27/22 04/27/22 History Tamsulosin HCl [Flomax] 0.4 mg PO DAILY 04/27/22 04/27/22 History predniSONE 5 mg PO DAILY 04/27/22 04/27/22 History Allergies Allergy/AdvReac Type Severity Reaction Status Date / Time No Known Allergies Allergy Verified 04/27/22 10:57 Surgical - Exam Vital Signs Temp Pulse Resp BP Pulse Ox 98.3 F 75 22 143/97 91 L 04/27/22 06:47 04/27/22 06:47 04/27/22 06:47 04/27/22 06:47 04/27/22 06:47 Results - Labs 04/27/22 07:11 04/27/22 07:11 Abnormal Lab Results - Last 24 Hours (Table) 04/27/22 04/27/22 Range/Units 07:11 07:11 Procalcitonin 0.21 H (0.02-0.09) ng/mL Ur Specific [place] 1.048 H (1.001-1.035) Urine Protein 1+ H (Negative) Microbiology - Last 24 Hours (Table) 04/27/22 11:54 Sputum Culture - Preliminary Sputum
[2022-04-28] MEDS ORDERED: ONDANSETRON 4 MG/2 ML VIAL IVP PRN (10:37)
--- NOTE | 2022-04-28 12:46 | XR ---
EXAMINATION TYPE: XR chest 2V DATE OF EXAM: 04/28/2022 12:39 PM COMPARISON: Chest radiographs from 04/27/2022. TECHNIQUE: XR chest 2V Frontal and lateral views of the chest. CLINICAL INDICATION:Male, 82 years old with history of pneumonia; FINDINGS: Lungs/Pleura: No pneumothorax. Small bilateral pleural effusions. Mild diffuse increased lung marking s redemonstrated and more prominent on the right. Patient's known lung cancer is not well identified. Pulmonary vascularity: Pulmonary vascular congestion. Heart/mediastinum: Cardiomediastinal silhouette is enlarged and stable. Prior cardiac valve surgery is evident. Musculoskeletal: No acute osseous pathology. Bilateral shoulder prosthesis. IMPRESSION: Cardiomegaly with small bilateral pleural effusions and prominent pulmonary vascular markings and dif fuse bilateral lung infiltrates. This is more focal at the right lung. Correlate for congestive heart failure. Superimposed infectious process is not excluded.
--- NOTE | 2022-04-28 13:18 | P.PN ---
Subjective Progress Note Date: 04/28/22 This is a very 82-year-old male patient who follows with Dr. Melendez as his primary care provider. He has a history of coronary artery disease with previous stent placements, hypothyroidism, atrial fibrillation anticoagulated with Xarelto, BPH, hypertension, obstructive sleep apnea, gastroesophageal reflu x disease, previous TAVR procedure. He has COPD and follows with Dr. Sheppard in our office. 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 His January 2022 PET scan revealed stable medial right upper lung hypermetabolic nodule. There is new suspicious hypermetabolic destruction destructive lesion involving the anterior T10 vertebrae suspicious for early osseous metastases metastatic disease. He did undergo radiation to the spine, right lung and brain. MRI of the brain from 04/07/2022 revealed right cerebellar lesion continued to show thin rim enhancement. Likely responding to site of treated disease. He is due for repe at scans next month. He presented here to the emergency room early this morning with complaints of abdominal discomfort and shortness of breath. ET scan of the abdomen revealed consolidation of the right lung base. Small bilateral pleural effusions. These are interval findings compared to January 2022. There is diverticulosis without acute diverticulitis. Small right renal cortical cyst. Sclerotic T10 and L3 vertebral bodies. Chest x-ray revealed focal correlation for atypical pulmonary edema versus left lower lobe pneumonia. Cardiomegaly with prominent, and a vascular markings and diffuse bilateral lung infiltrates possible congestive heart failure. He is seen in consultation in the emergency room. He is sitting up on the stretcher. Awake and alert. He is coughing up blood-tinged sputum. He is afebrile. He was hypoxemic and is currently 88% O2 saturation on 6 L nasal cannula. White count 8.8. Hemoglobin 12.1. Sodium 132. Potassium 4.9. BUN 24. Creatinine 1.46. AST 68. ALT 51. ProBNP 2920. Amylase 61. Lipase 299. Hernandez virus by PCR not detected. He was initiated on ceftriaxone and azithromycin along with DuoNeb inhalations. Blood cultures are pending. Pro-calcitonin pending. Sputum culture pending. The patient is seen today 04/28/2022 in follow-up on the regular medical floor. He is currently sitting up in bed. Awake and alert in no acute distress. Continue O2 saturations in the 90s on 6 L high flow nasal cannula. He's been afebrile. Hemodynamically stable. His main complaint today is of nausea. Chest x-ray reveals cardiomegaly with small bilateral effusions present prominent pulmonary vascular markings with diffuse bilateral lung infiltrates. More focal in the right lung. Sputum culture pending. Blood cultures reveal no growth thus far. He is continued on DuoNeb inhalations, Pulmicort and Perforomist inhalations, IV site Medrol. Anticoagulated with Xarelto. Antibiotics in the form of ceftriaxone and azithromycin. Pro-calcitonin 0.21. Objective - Vital Signs Vital signs: Vital Signs Temp 97.8 F 04/28/22 09:00 Pulse 80 04/28/22 12:40 Resp 28 H 04/28/22 09:00 BP 130/76 04/28/22 09:00 Pulse Ox 91 L 04/28/22 08:31 FiO2 Intake & Output 04/27/22 04/28/22 04/28/22 18:59 06:59 18:59 Weight 92.986 kg Other: # Voids 2 1 # Bowel Movements 1 - Exam GENERAL EXAM: Alert, pleasant 82-year-old female patient, 6 L nasal cannula, fairly comfortable in no apparent distress. HEAD: Normocephalic. EYES: Normal reaction of pupils, equal size. NOSE: Clear with pink turbinates. THROAT: No erythema or exudates. NECK: No masses, no JVD. CHEST: No chest wall deformity. LUNGS: Equal air entry with rales in the bilateral bases. CVS: S1 and S2 normal with no audible murmur, regular rhythm. ABDOMEN: No hepatosplenomegaly, normal bowel sounds, no guarding or rigidity. SPINE: No scoliosis or deformity SKIN: No rashes CENTRAL NERVOUS SYSTEM: No focal deficits, tone is normal in all 4 extremities. EXTREMITIES: There is no peripheral edema. No clubbing, no cyanosis. Peripheral pulses are intact. - Labs CBC & Chem 7: 04/27/22 07:11 04/27/22 07:11 Labs: Abnormal Lab Results - Last 24 Hours (Table) 04/27/22 04/27/22 Range/Units 07:11 07:11 Procalcitonin 0.21 H (0.02-0.09) ng/mL Ur Specific Buckley 1.048 H (1.001-1.035) Urine Protein 1+ H (Negative) Microbiology - Last 24 Hours (Table) 04/27/22 09:50 Blood Culture - Preliminary Blood No Growth after 24 hours 04/27/22 10:07 Blood Culture - Preliminary Blood No Growth after 24 hours 04/27/22 11:54 Gram Stain - Preliminary Sputum Sputum Culture - Preliminary Assessment and Plan Assessment: Abdominal pain of unclear etiology. CT scan of the abdomen and pelvis revealed diverticulosis without acute diverticulitis. Small right renal cortical cysts. Acute hypoxemic respiratory failure secondary to early pneumonia in the right glendy ng base with consolidation noted on CT scan of the abdomen with small bilateral pleural effusions Acute on chronic diastolic congestive heart failure History of atrial fibrillation, anticoagulated with Xarelto History of previous COVID-19 infection in June 2021 receiving monoclonal antibodies. He is vaccinated and boosted. CoVID screen this admission negative History of metastatic left lung pulmonary adenocarcinoma initial diagnosis in 2016 most recently found to have metastatic lesions to the right lung, spine and brain status post radiation in February 2022 Coronary artery disease with previous stent placement 3 History of aortic valve stenosis status post TAVR procedure Hyperlipidemia Chronic kidney disease History of small bowel resection with ostomy and subsequent reversal History of prostate cancer status post radiation History of skin cancer status post resection Hypothyroidism Hypertension Plan: The patient was seen and evaluated Medications, chest x-ray and labs reviewed Continue ceftriaxone and azithromycin for now Blood culture and sputum culture pending Continue bronchodilators Titrate the FiO2 as tolerated We will continue to follow I have personally seen and examined the patient, performed the documentation and the assessment and plan as written. Number of minutes spent on the visit: 10. I have personally seen and examined the patient and reviewed the documentation. I performed a joint evaluation with the nurse practitioner in this evaluation was done more than 20 minutes. I fully agree with the documentation above and the plan of care. The patient will be kept on the same antibiotic coverage for now. Repeat chest x-ray in the morning. We will add Zofran for some nausea. We'll continue to follow
--- NOTE | 2022-04-28 16:37 | P.PN ---
Progress Note - Text Progress Note Date: 04/28/22 Chief Complaint: Short of breath History present complaint: This is a pleasant 82-year-old patient of Dr. Roxie Melendez. Chronic stable medical conditions include coronary artery disease, CHF with EF of 50-65%, moderate aortic stenosis with sclerosis, atrial fibrillation, COPD, GERD, hyperlipidemia, hypertension, primary osteoarthritis,(s) sleep apnea, hypothyroid. 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 treated with chemotherapy -being followed with Dr. Rutherford. last chemotherapy in October 2019 History of Grabiel fundoplication, has had small bowel obstruction with resection colostomy and reversal of the same. prostate cancer treated with radiation.. Bronchoscopy in March 2021 negative for malignant cells. June 2021 had COVID 19. Patient now presents with increasing shortness of breath last 3-4 days. Congested cough. Able to expectorate only a little amount. Fevers. Poor appetite. Not been sleeping well. Normally uses a cane. Currently just become very weak in the last 2-3 days. No bowel movement for 3 days. Also complaining of some abdominal discomfort. No nausea vomiting. Admitted with pneumonia/tracheal bronchitis. IV ceftriaxone. COPD exacerbation. April 28: Sitting in the 80s the bed. Breathing a bit better. Decreased cough. Told to use incentive spirometry. Discussed with the patient and . Increase activity. On IV Solu-Medrol Active Medications Acetaminophen (Acetaminophen Tab 325 Mg Tab) 650 mg PO Q6HR PRN PRN Reason: Mild Pain or Fever > 100.5 Albuterol Sulfate (Albuterol Nebulized 2.5 Mg/3 Ml) 2.5 mg INHALATION RT-Q2H PRN PRN Reason: Shortness Of Breath Or Wheezing Albuterol/Ipratropium (Ipratropium-Albuterol 3 Ml Neb) 3 ml INHALATION RT-QID [facility] Last Admin: 04/28/22 16:08 Dose: 3 ml Amiodarone HCl (Amiodarone 200 Mg Tab) 200 mg PO DAILY [facility] Last Admin: 04/28/22 08:22 Dose: 200 mg Atorvastatin Calcium (Atorvastatin 40 Mg Tab) 40 mg PO HS [facility] Last Admin: 04/27/22 21:22 Dose: 40 mg Azithromycin (Azithromycin 500 Mg Tab) 500 mg PO DAILY [facility]; Protocol Stop: 04/29/22 09:01 Last Admin: 04/28/22 08:21 Dose: 500 mg Budesonide (Budesonide 1 Mg/2 Ml Nebu) 1 mg INHALATION RT-BID [facility] Last Admin: 04/28/22 08:31 Dose: 1 mg Calcium Carbonate/Glycine (Calcium Carbonate 500 Mg Chewable) 1,000 mg PO Q4HR PRN PRN Reason: Dyspepsia Folic Acid (Folic Acid 1 Mg Tab) 1 mg PO DAILY [facility] Last Admin: 04/28/22 08:22 Dose: 1 mg Formoterol Fumarate (Formoterol Fumarate 20 Mcg/2 Ml Nebu) 20 mcg INHALATION RT-BID [facility] Last Admin: 04/28/22 08:31 Dose: 20 mcg Guaifenesin (Guaifenesin 600 Mg Tablet.Er) 600 mg PO QID [facility] Last Admin: 04/28/22 12:06 Dose: 600 mg Ceftriaxone Sodium 2 gm/ (Sodium Chloride) 50 mls @ 100 mls/hr IVPB Q24HR [facility]; Protocol Stop: 05/01/22 09:29 Last Admin: 04/28/22 08:20 Dose: 100 mls/hr Levothyroxine Sodium (Levothyroxine 50 Mcg Tab) 50 mcg PO DAILY@0630 [facility] Last Admin: 04/28/22 06:15 Dose: 50 mcg Lorazepam (Lorazepam 0.5 Mg Tab) 0.5 mg PO Q6HR PRN PRN Reason: Anxiety Losartan Potassium (Losartan 50 Mg Tab) 50 mg PO DAILY [facility] Last Admin: 04/28/22 08:22 Dose: 50 mg Methylprednisolone Sodium Succinate (Methylprednisolone Sod Succi 40 Mg/Ml 1 Ml Vial) 40 mg IV Q8HR [facility] Last Admin: 04/28/22 15:15 Dose: 40 mg Metoprolol Tartrate (Metoprolol Tartrate 25 Mg Tab) 25 mg PO BID [facility] Last Admin: 04/28/22 08:22 Dose: 25 mg Miscellaneous Information (Pneumonia Protocol Utilized 1 Each Misc) 1 each PO ONCE PRN PRN Reason: Per Protocol Montelukast Sodium (Montelukast 10 Mg Tab) 10 mg PO HS [facility] Last Admin: 04/27/22 21:22 Dose: 10 mg Naloxone HCl (Naloxone 0.4 Mg/Ml 1 Ml Vial) 0.2 mg IV Q2M PRN PRN Reason: Opioid Reversal Ondansetron HCl (Ondansetron 4 Mg/2 Ml Vial) 4 mg IVP Q6HR PRN PRN Reason: Nausea And Vomiting Pantoprazole Sodium (Pantoprazole 40 Mg Tablet) 40 mg PO HS [facility] Last Admin: 04/27/22 21:22 Dose: 40 mg Psyllium Hydrophilic Mucilloid (Psyllium Husk 100% 6 Gm Packet) 6 gm PO DAILY [facility] Last Admin: 04/28/22 08:21 Dose: 6 gm Rivaroxaban (Rivaroxaban 20 Mg Tab) 20 mg PO W/SUPPER [facility]; Protocol Last Admin: 04/27/22 18:03 Dose: 20 mg Sertraline HCl (Sertraline 50 Mg Tab) 50 mg PO DAILY [facility] Last Admin: 04/28/22 08:22 Dose: 50 mg Tamsulosin HCl (Tamsulosin 0.4 Mg Cap.Er.24h) 0.4 mg PO DAILY [facility] Last Admin: 04/28/22 08:22 Dose: 0.4 mg Zolpidem Tartrate (Zolpidem 5 Mg Tab) 5 mg PO [facility] Last Admin: 04/27/22 21:22 Dose: 5 mg Past medical history: Include Coronary artery disease with stent , stage IV adenocarcinoma of the lung on chemotherapy-last time in October 2019, history of Grabiel fundoplication, COPD in an ex-smoker, hypothyroidism, essential hypertension, hyperlipidemia, obstructive sleep apnea, CHF with diastolic dysfunction, moderate aortic stenosis with sclerosis. January 2020 - GI bleed. EGD was unremarkable. Bronchomalacia, atrial fibrillation, COVID 19 Social history: . Smoked from age of 14 through 1983 . alcohol occasionally. Retired. Uses a cane Family history: sister had rectal cancer Physical examination: VITAL SIGNS: 98.1, 73, 18, 97 x 61, 92% on 4 L GENERAL: Sitting on the edge of the bed, breathing better EYES: Pupils equal. Conjunctiva normal. HEENT: External appearance of nose and ears normal, oral cavity normal. NECK: JVD not raised; masses not palpable. HEART: First and second heart sounds are normal; no edema. LUNGS: Respiratory rate increased, decreased breath sounds. ABDOMEN: Soft, nontender, , liver spleen not palpable, no masses palpable. PSYCH: Alert and oriented x3; mood and affect anxious INVESTIGATIONS, reviewed in the clinical context: Pro-calcitonin 0.21 White count 8.8 hemoglobin 12.1 platelets 202 sodium 132 potassium 4.9. 24 creatinine 1.46 COVID 19: Not detected Chest x-ray film personally reviewed by me-acute and/or chronic changes Computed tomography scan abdomen and pelvis: Consolidation right lung base, small bilateral pleural effusions. Diverticulosis. Sclerosis of T10 and L3 [address] angiogram of the neck: 70% stenosis origin right internal carotid artery and 30 (stenosis origin left internal carotid artery. 50% stenosis of distal left vertebral artery. Assessment and plan: -Pneumonia, suspect gram-negative organism.: Better IV ceftriaxone. Mucinex. -Acute constipation. Lactulose 20 g. Add Metamucil. -Acute COPD exacerbation in a ex-smoker.: Some improvement DuoNeb. Nebulized Pulmicort and long-acting beta agonist . -Paroxysmal atrial fibrillation, currently in sinus rhythm Lopressor 25 mg by mouth twice a day. Xarelto 20 mg daily at bedtime -Chronic tracheal bronchomalacia -Colonic diverticulosis, asymptomatic - Grabiel fundoplication, -Coronary artery disease with a prior history of stent Aspirin, Lopressor, -Stage IV adenocarcinoma of the lung received chemotherapy. Consult pulmonary -Hypothyroidism Synthroid 50 g daily -Essential hypertension Cozaar 50 mg daily, Lopressor 25 twice a day -Obstructive sleep apnea -Chronic congestive heart failure from diastolic dysfunction EF 50-60%. Stable Lasix 20 mg daily -Moderate aortic stenosis with sclerosis nonrheumatic Follow clinically -Primary osteoarthritis multiple joints Use. Medications as needed -Chronic kidney disease. 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 Follow clinically - chronic 70% stenosis origin right ICA. IV ceftriaxone. Mucinex. Nebulized bronchodilators. IV Solu-Medrol. Incentive spirometry. Increase activity. Discussed with the patient and the .
[2022-04-28] MEDS: RIVAROXABAN 20 MG TAB PO SCH (17:36)
[2022-04-28] MEDS: ZOLPIDEM 5 MG TAB PO SCH (21:10)
[2022-04-28] MEDS: MONTELUKAST 10 MG TAB PO SCH (21:10)
[2022-04-28] MEDS: PANTOPRAZOLE 40 MG TABLET PO SCH (21:10)
[2022-04-28] MEDS: ATORVASTATIN 40 MG TAB PO SCH (21:10)
--- NOTE | 2022-04-28 21:10 | P.PN ---
Progress Note - Text Progress Note Date: 04/28/22 Patient be evaluated at this evening. He is tolerating diet. No reports of abdominal pain. Patient reports falling earlier today. He is resting in bed comfortably. At this time, patient asymmetric gallstones. No surgical intervention needed at this time. May follow up as outpatient.
[2022-04-29] MEDS: methylPREDNISolone SOD SUCCI 40 MG/ML 1 ML VIAL IV SCH ×2 (00:24→09:44)
[2022-04-29] MEDS: LEVOTHYROXINE 50 MCG TAB PO SCH (06:13)
[2022-04-29] MEDS: LORazepam 0.5 MG TAB PO PRN (06:26)
[2022-04-29] MEDS: BUDESONIDE 1 MG/2 ML NEBU INHALATION SCH ×2 (06:56→21:15)
[2022-04-29] MEDS: IPRATROPIUM-ALBUTEROL 3 ML NEB INHALATION SCH ×4 (06:56→21:15)
[2022-04-29] MEDS: FORMOTEROL FUMARATE 20 MCG/2 ML NEBU INHALATION SCH ×2 (06:56→21:15)
--- NOTE | 2022-04-29 07:56 | XR ---
EXAMINATION TYPE: XR chest 1V portable DATE OF EXAM: 04/29/2022 CLINICAL HISTORY: Pneumonia progress study. History of lung cancer. TECHNIQUE: Single AP portable upright view of the chest is obtained. COMPARISON: Chest x-ray from one day earlier and older studies FINDINGS: Persistent cardiomegaly with stent graft in the aortic root and atherosclerotic and ectati c thoracic aorta. Chronic parenchymal changes with diffuse increased reticular opacities throughout t he right lung redemonstrated. Worsening left lower lung reticular opacities noted. A few Elvis B tremayne es in the left lung periphery redemonstrated. Stable small bilateral pleural effusions. Metallic hard landry from bilateral shoulder surgery is partially imaged. IMPRESSION: Diffuse right lung edema and/or infiltrates redemonstrated. Stable cardiomegaly with smal l bilateral pleural effusions. Worsening left lower lung edema and/or developing infiltrates noted. C orrelate for infectious process on CHF exacerbation.
[2022-04-29] MEDS: TAMSULOSIN 0.4 MG CAP.ER.24H PO SCH (09:40)
[2022-04-29] MEDS: LOSARTAN 50 MG TAB PO SCH (09:40)
[2022-04-29] MEDS: METOPROLOL TARTRATE 25 MG TAB PO SCH ×2 (09:41→20:23)
[2022-04-29] MEDS: guaiFENesin 600 MG TABLET.ER PO SCH ×4 (09:41→20:23)
[2022-04-29] MEDS: SERTRALINE 50 MG TAB PO SCH (09:42)
[2022-04-29] MEDS: FOLIC ACID 1 MG TAB PO SCH (09:42)
[2022-04-29] MEDS: AMIODARONE 200 MG TAB PO SCH (09:42)
[2022-04-29] MEDS: PSYLLIUM HUSK 100% 6 GM PACKET PO SCH (09:43)
[2022-04-29] MEDS: AZITHROMYCIN 500 MG TAB PO SCH (10:02)
[2022-04-29] MEDS ORDERED: RX INFO: IV CONTRAST WAS GIVEN 1 EACH MISC MISCELLANE PRN (11:04)
--- NOTE | 2022-04-29 12:54 | CT ---
EXAMINATION TYPE: CT chest w con DATE OF EXAM: 04/29/2022 COMPARISON: Prior CT January 19, [address] PET CT January 28, 2022 HISTORY: Difficulty breathing with lung cancer CT DLP: 561.9 mGycm. Automated Exposure Control for Dose Reduction was Utilized. TECHNIQUE: CT scan of the thorax is performed following with IV Contrast, patient injected with 80 m L of Isovue 300. FINDINGS: LUNGS: New diffuse groundglass opacity throughout the right lung with some areas of organizing consol idation central right suprahilar region axial image 26. Relative sparing of the periphery of the righ t lung apex due to peripheral blebs. Stable small to tiny left pleural effusion. Mild to moderate tremayne ear scarring and/or atelectasis in the left mid to lower lung is redemonstrated. Stable pleural-based 2.3 x 1.7 cm medial left upper lung nodule image 13. MEDIASTINUM: There are no greater than 1 cm hilar or mediastinal lymph nodes. No pericardial effus ion is seen. Heart size stable and upper limits of normal. Calcification at level of the mitral valv e redemonstrated. Stent graft in the aortic root again seen. Coronary artery calcification and/or dung nts redemonstrated. Prominent pulmonary arteries suggesting underlying pulmonary artery hypertension redemonstrated. OTHER: Metallic hardware from bilateral shoulder surgery causes streak artifact limiting evaluation o f supraclavicular level. Dependent small gallstones in contracted gallbladder. Slight scoliotic curva ture redemonstrated. Small degree of bilateral subareolar gynecomastia again seen. IMPRESSION: New diffuse right lung groundglass opacity with more central organizing consolidation sug gests edema and/or atypical infiltrate. Correlate clinically. Stable small to tiny left pleural effus ion along with right medial pleural based mass or neoplasm.
[2022-04-29] MEDS: methylPREDNISolone SOD SUCCI 125 MG/2 ML VIAL IV SCH ×2 (13:33→17:07)
--- NOTE | 2022-04-29 15:10 | P.PN ---
Subjective Progress Note Date: 04/29/22 This is a very 82-year-old male patient who follows with Dr. Melendez as his primary care provider. He has a history of coronary artery disease with previous stent placements, hypothyroidism, atrial fibrillation anticoagulated with Xarelto, BPH, hypertension, obstructive sleep apnea, gastroesophageal reflu x disease, previous TAVR procedure. He has COPD and follows with Dr. Sheppard in our office. 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 His January 2022 PET scan revealed stable medial right upper lung hypermetabolic nodule. There is new suspicious hypermetabolic destruction destructive lesion involving the anterior T10 vertebrae suspicious for early osseous metastases metastatic disease. He did undergo radiation to the spine, right lung and brain. MRI of the brain from 04/07/2022 revealed right cerebellar lesion continued to show thin rim enhancement. Likely responding to site of treated disease. He is due for repe at scans next month. He presented here to the emergency room early this morning with complaints of abdominal discomfort and shortness of breath. ET scan of the abdomen revealed consolidation of the right lung base. Small bilateral pleural effusions. These are interval findings compared to January 2022. There is diverticulosis without acute diverticulitis. Small right renal cortical cyst. Sclerotic T10 and L3 vertebral bodies. Chest x-ray revealed focal correlation for atypical pulmonary edema versus left lower lobe pneumonia. Cardiomegaly with prominent, and a vascular markings and diffuse bilateral lung infiltrates possible congestive heart failure. He is seen in consultation in the emergency room. He is sitting up on the stretcher. Awake and alert. He is coughing up blood-tinged sputum. He is afebrile. He was hypoxemic and is currently 88% O2 saturation on 6 L nasal cannula. White count 8.8. Hemoglobin 12.1. Sodium 132. Potassium 4.9. BUN 24. Creatinine 1.46. AST 68. ALT 51. ProBNP 2920. Amylase 61. Lipase 299. Hernandez virus by PCR not detected. He was initiated on ceftriaxone and azithromycin along with DuoNeb inhalations. Blood cultures are pending. Pro-calcitonin pending. Sputum culture pending. The patient is seen today 04/28/2022 in follow-up on the regular medical floor. He is currently sitting up in bed. Awake and alert in no acute distress. Continue O2 saturations in the 90s on 6 L high flow nasal cannula. He's been afebrile. Hemodynamically stable. His main complaint today is of nausea. Chest x-ray reveals cardiomegaly with small bilateral effusions present prominent pulmonary vascular markings with diffuse bilateral lung infiltrates. More focal in the right lung. Sputum culture pending. Blood cultures reveal no growth thus far. He is continued on DuoNeb inhalations, Pulmicort and Perforomist inhalations, IV site Medrol. Anticoagulated with Xarelto. Antibiotics in the form of ceftriaxone and azithromycin. Pro-calcitonin 0.21. 04/29/2022, the patient is still struggling with his breathing. He still short of breath congested and he gets short of breath with limited amount of activity. He remains on 6 L of O2 nasal cannula. The chest x-ray shows no major changes and the patient has extensive infiltration of the right lung along with infiltration of the lung bases bilaterally. Based on that, a computed donal graphy scan of the chest was done and computed tomography scan showed a new diffuse right lung groundglass opacity and more central organizing consolidation suggestive of any significant infiltrates/edema. The patient also has a small tiny left-sided pleural effusion along the right medial base area. There is a stable pleural-based lesion measuring 2.3 x 1.7 cm in size. Remains on bronchodilators. He remains on Pulmicort and Perforomist nebulized treatments around the clock. Remains on DuoNeb.the antibiotic coverage is in the form of Rocephin and Zithromax. The patienthas negative sputum sample and negative cultures. Objective - Vital Signs Vital signs: Vital Signs Temp 98.6 F 04/29/22 13:34 Pulse 78 04/29/22 13:34 Resp 19 04/29/22 13:34 BP 106/65 04/29/22 13:34 Pulse Ox 92 L 04/29/22 13:34 FiO2 Intake & Output 04/28/22 04/29/22 04/29/22 18:59 06:59 18:59 Weight 93.1 kg Other: # Voids 1 1 # Bowel Movements 1 - Exam GENERAL EXAM: Alert, pleasant 82-year-old female patient, 6 L nasal cannula, fairly comfortable in no apparent distress. HEAD: Normocephalic. EYES: Normal reaction of pupils, equal size. NOSE: Clear with pink turbinates. THROAT: No erythema or exudates. NECK: No masses, no JVD. CHEST: No chest wall deformity. LUNGS: Equal air entry with rales in the bilateral bases. CVS: S1 and S2 normal with no audible murmur, regular rhythm. ABDOMEN: No hepatosplenomegaly, normal bowel sounds, no guarding or rigidity. SPINE: No scoliosis or deformity SKIN: No rashes CENTRAL NERVOUS SYSTEM: No focal deficits, tone is normal in all 4 extremities. EXTREMITIES: There is no peripheral edema. No clubbing, no cyanosis. Peripheral pulses are intact. - Labs CBC & Chem 7: 04/27/22 07:11 04/27/22 07:11 Labs: Microbiology - Last 24 Hours (Table) 04/27/22 09:50 Blood Culture - Preliminary Blood No Growth after 48 hours 04/27/22 10:07 Blood Culture - Preliminary Blood No Growth after 48 hours 04/27/22 11:54 Gram Stain - Final Sputum Sputum Culture - Final Assessment and Plan Assessment: Abdominal pain of unclear etiology. CT scan of the abdomen and pelvis revealed diverticulosis without acute diverticulitis. Small right renal cortical cysts. Acute hypoxemic respiratory failure secondary to extensive pneumonia the patient had diffuse groundglass pulmonary infiltration of the right lung. Rule out atypical pneumonia. Rule out radiation pneumonia. Infiltration of the m alignancy involving the right lung is felt to be less likely.the patient is currently on 3 L O2 nasal cannula. Atypical CHF/interstitial edema is felt to be less likely. Acute on chronic diastolic congestive heart failure History of atrial fibrillation, anticoagulated with Xarelto History of previous COVID-19 infection in June 2021 receiving monoclonal antibodies. He is vaccinated and boosted. CoVID screen this admission negative History of metastatic left lung pulmonary adenocarcinoma initial diagnosis in 2016 most recently found to have metastatic lesions to the right lung, spine and brain status post radiation in February 2022 Coronary artery disease with previous stent placement 3 History of aortic valve stenosis status post TAVR procedure Hyperlipidemia Chronic kidney disease History of small bowel resection with ostomy and subsequent reversal History of prostate cancer status post radiation History of skin cancer status post resection Hypothyroidism Hypertension Plan: CAT scan of the chest was noted Changes IV Solu Medrol to 60 mg every 6 hours Continue bronchodilators Continue same antibiotic coverage May benefit from bronchoscopy is no improvement as the patient diffuse infiltration of the right lung and the exact etiology is not clearas the patient's cultures are negative and the patient's pro calcitonin level is at 0.21 and the COVID 19 testing were negative. keep same antibiotic coverage for now. continue anticoagulation we'll continue to follow.
--- NOTE | 2022-04-29 15:20 | P.PN ---
Subjective Progress Note Date: 04/29/22 CHIEF COMPLAINT: Abdominal pain HISTORY OF PRESENT ILLNESS: The patient is a 82 year old male who was admitted the hospital for exacerbation of chronic obstructive pulmonary disease and dyspnea. No reports of abdominal pain. He is tolerating diet. He is resting comfortably. He is having bowel movements. REVIEW OF ORGAN SYSTEMS: CONSTITUTIONAL: No fevers or chills. RESPIRATORY: Has obstructive sleep apnea. Has troubles with breathing or dyspnea on exertion. Has chronic obstructive pulmonary disease. On oxygen. Past history of lung cancer. No current dyspnea. CARDIOVASCULAR: Has hypertensive heart disease including atrial fibrillation. Has congestive heart failure. Has hyperlipidemia. Has cardiac stent placement. Has aortic stenosis. Has coronary artery disease. No acute chest pain GASTROINTESTINAL: Denies fatty food intolerance. Denies change in bowel habits and gas bloat. Has gastroesophageal reflux disease. History of bowel resection. Past Grabiel fundoplasty. History of diverticular disease and bowel obstruction. Has bowel movements. PHYSICAL EXAM: VITALS: Reviewed CONSTITUTIONAL: Well developed and in no acute distress. EYES: Conjuctivae without sclera icterus. Extraocular movements grossly intact. HEAD, EARS, NOSE, THROAT: Moist buccal mucosa. Head is atraumatic, normocephalic. Hears conversational speech. No nasal drainage. RESPIRATORY: Non-labored respirations and equal bilateral excursions. Has nasal cannula oxygen. CARDIOVASCULAR: Palpable 2+ radial pulses. ABDOMEN: Nontender. Nondistended. MUSCULOSKELETAL: No clubbing cyanosis. SKIN: Warm and well perfused with good skin turgor. NEUROLOGIC: Cranial nerves II through XII grossly intact. No focal or lateralizing signs. PSYCH: Appropriate affect. Alert and oriented to person, place and time. Displays appropriate insight. CLINCAL LABS: Reviewed. No new labs. ASSESSMENT: 1. Abdominal pain 2. Acute exacerbation of chronic obstructive pulmonary disease 3. Atrial fibrillation 4. Oxygen dependent chronic obstructive pulmonary disease 5. Pandiverticulosis 6. Elevated LFTs 7. Gallstones PLAN: 1. Overall, he denies any abdominal pain and resting comfortably. 2. He is asymptomatic with regards to his gallstobes. 3. Will follow up as outpatient. 4. Will sign off. 5. Re-consult if needed. Objective - Vital Signs Vital signs: Vital Signs Temp 98.6 F 04/29/22 13:34 Pulse 78 04/29/22 13:34 Resp 19 04/29/22 13:34 BP 106/65 04/29/22 13:34 Pulse Ox 92 L 04/29/22 13:34 FiO2 Intake & Output 04/28/22 04/29/22 04/29/22 18:59 06:59 18:59 Weight 93.1 kg Other: # Voids 1 1 # Bowel Movements 1 - Labs CBC & Chem 7: 04/27/22 07:11 04/27/22 07:11 Labs: Microbiology - Last 24 Hours (Table) 04/27/22 09:50 Blood Culture - Preliminary Blood No Growth after 48 hours 04/27/22 10:07 Blood Culture - Preliminary Blood No Growth after 48 hours 04/27/22 11:54 Gram Stain - Final Sputum Sputum Culture - Final
[2022-04-29] MEDS: RIVAROXABAN 20 MG TAB PO SCH (17:07)
--- NOTE | 2022-04-29 18:08 | P.PN ---
Progress Note - Text Progress Note Date: 04/29/22 Chief Complaint: Short of breath History present complaint: This is a pleasant 82-year-old patient of Dr. Roxie Melendez. Chronic stable medical conditions include coronary artery disease, CHF with EF of 50-65%, moderate aortic stenosis with sclerosis, atrial fibrillation, COPD, GERD, hyperlipidemia, hypertension, primary osteoarthritis,(s) sleep apnea, hypothyroid. 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 treated with chemotherapy -being followed with Dr. Rutherford. last chemotherapy in October 2019 History of Grabiel fundoplication, has had small bowel obstruction with resection colostomy and reversal of the same. prostate cancer treated with radiation.. Bronchoscopy in March 2021 negative for malignant cells. June 2021 had COVID 19. Patient now presents with increasing shortness of breath last 3-4 days. Congested cough. Able to expectorate only a little amount. Fevers. Poor appetite. Not been sleeping well. Normally uses a cane. Currently just become very weak in the last 2-3 days. No bowel movement for 3 days. Also complaining of some abdominal discomfort. No nausea vomiting. Admitted with pneumonia/tracheal bronchitis. IV ceftriaxone. COPD exacerbation. April 28: Sitting in the 80s the bed. Breathing a bit better. Decreased cough. Told to use incentive spirometry. Discussed with the patient and . Increase activity. On IV Solu-Medrol April 29: Sitting up in a chair. Tired.. A lot of coughing. Not much expectoration. Short of breath. CT chest showing consolidation/infiltrate, ordered by pulmonary. Continue with ceftriaxone. Steroids. Decreased appetite Active Medications Acetaminophen (Acetaminophen Tab 325 Mg Tab) 650 mg PO Q6HR PRN PRN Reason: Mild Pain or Fever > 100.5 Albuterol Sulfate (Albuterol Nebulized 2.5 Mg/3 Ml) 2.5 mg INHALATION RT-Q2H PRN PRN Reason: Shortness Of Breath Or Wheezing Albuterol/Ipratropium (Ipratropium-Albuterol 3 Ml Neb) 3 ml INHALATION RT-QID [facility] Last Admin: 04/29/22 16:29 Dose: 3 ml Amiodarone HCl (Amiodarone 200 Mg Tab) 200 mg PO DAILY [facility] Last Admin: 04/29/22 09:42 Dose: 200 mg Atorvastatin Calcium (Atorvastatin 40 Mg Tab) 40 mg PO HS [facility] Last Admin: 04/28/22 21:10 Dose: 40 mg Budesonide (Budesonide 1 Mg/2 Ml Nebu) 1 mg INHALATION RT-BID [facility] Last Admin: 04/29/22 06:56 Dose: 1 mg Calcium Carbonate/Glycine (Calcium Carbonate 500 Mg Chewable) 1,000 mg PO Q4HR PRN PRN Reason: Dyspepsia Last Admin: 04/29/22 00:28 Dose: 1,000 mg Folic Acid (Folic Acid 1 Mg Tab) 1 mg PO DAILY [facility] Last Admin: 04/29/22 09:42 Dose: 1 mg Formoterol Fumarate (Formoterol Fumarate 20 Mcg/2 Ml Nebu) 20 mcg INHALATION RT-BID [facility] Last Admin: 04/29/22 06:56 Dose: 20 mcg Guaifenesin (Guaifenesin 600 Mg Tablet.Er) 600 mg PO QID [facility] Last Admin: 04/29/22 17:07 Dose: 600 mg Ceftriaxone Sodium 2 gm/ (Sodium Chloride) 50 mls @ 100 mls/hr IVPB Q24HR [facility]; Protocol Stop: 05/01/22 09:29 Last Admin: 04/29/22 09:46 Dose: 100 mls/hr Levothyroxine Sodium (Levothyroxine 50 Mcg Tab) 50 mcg PO DAILY@0630 [facility] Last Admin: 04/29/22 06:13 Dose: 50 mcg Lorazepam (Lorazepam 0.5 Mg Tab) 0.5 mg PO Q6HR PRN PRN Reason: Anxiety Last Admin: 04/29/22 06:26 Dose: 0.5 mg Losartan Potassium (Losartan 50 Mg Tab) 50 mg PO DAILY [facility] Last Admin: 04/29/22 09:40 Dose: 50 mg Methylprednisolone Sodium Succinate (Methylprednisolone Sod Succi 125 Mg/2 Ml Vial) 60 mg IV Q6HR [facility] Last Admin: 04/29/22 17:07 Dose: 60 mg Metoprolol Tartrate (Metoprolol Tartrate 25 Mg Tab) 25 mg PO BID [facility] Last Admin: 04/29/22 09:41 Dose: 25 mg Miscellaneous Information (Pneumonia Protocol Utilized 1 Each Misc) 1 each PO ONCE PRN PRN Reason: Per Protocol Miscellaneous Information (Rx Info: Iv Contrast Was Given 1 Each Misc) 1 each MISCELLANE DAILY PRN PRN Reason: Per Protocol Stop: 05/01/22 11:05 Montelukast Sodium (Montelukast 10 Mg Tab) 10 mg PO HS [facility] Last Admin: 04/28/22 21:10 Dose: 10 mg Naloxone HCl (Naloxone 0.4 Mg/Ml 1 Ml Vial) 0.2 mg IV Q2M PRN PRN Reason: Opioid Reversal Ondansetron HCl (Ondansetron 4 Mg/2 Ml Vial) 4 mg IVP Q6HR PRN PRN Reason: Nausea And Vomiting Last Admin: 04/29/22 06:13 Dose: 4 mg Pantoprazole Sodium (Pantoprazole 40 Mg Tablet) 40 mg PO HS [facility] Last Admin: 04/28/22 21:10 Dose: 40 mg Psyllium Hydrophilic Mucilloid (Psyllium Husk 100% 6 Gm Packet) 6 gm PO DAILY [facility] Last Admin: 04/29/22 09:43 Dose: 6 gm Rivaroxaban (Rivaroxaban 20 Mg Tab) 20 mg PO W/SUPPER [facility]; Protocol Last Admin: 04/29/22 17:07 Dose: 20 mg Sertraline HCl (Sertraline 50 Mg Tab) 50 mg PO DAILY [facility] Last Admin: 04/29/22 09:42 Dose: 50 mg Tamsulosin HCl (Tamsulosin 0.4 Mg Cap.Er.24h) 0.4 mg PO DAILY [facility] Last Admin: 04/29/22 09:40 Dose: 0.4 mg Zolpidem Tartrate (Zolpidem 5 Mg Tab) 5 mg PO [facility] Last Admin: 04/28/22 21:10 Dose: 5 mg Past medical history: Include Coronary artery disease with stent , stage IV adenocarcinoma of the lung on chemotherapy-last time in October 2019, history of Grabiel fundoplication, COPD in an ex-smoker, hypothyroidism, essential hypertension, hyperlipidemia, obstructive sleep apnea, CHF with diastolic dysfunction, moderate aortic stenosis with sclerosis. January 2020 - GI bleed. EGD was unremarkable. Bronchomalacia, atrial fibrillation, COVID 19 Social history: . Smoked from age of 14 through 1982 . alcohol occasionally. Retired. Uses a cane Family history: sister had rectal cancer Physical examination: VITAL SIGNS: 98.6, 78, 19, 106/65, 92% on 3 L GENERAL: Sitting up in chair, short of breath EYES: Pupils equal. Conjunctiva normal. HEENT: External appearance of nose and ears normal, oral cavity normal. NECK: JVD not raised; masses not palpable. HEART: First and second heart sounds are normal; no edema. LUNGS: Respiratory rate increased, decreased breath sounds, right-sided coarse crackles. ABDOMEN: Soft, nontender, , liver spleen not palpable, no masses palpable. PSYCH: Alert and oriented x3; mood and affect anxious INVESTIGATIONS, reviewed in the clinical context: Computed tomography scan chest: Extensive right-sided infiltrate/consolidation Pro-calcitonin 0.21 White count 8.8 hemoglobin 12.1 platelets 202 sodium 132 potassium 4.9. 24 creatinine 1.46 COVID 19: Not detected Chest x-ray film personally reviewed by me-acute and/or chronic changes Computed tomography scan abdomen and pelvis: Consolidation right lung base, small bilateral pleural effusions. Diverticulosis. Sclerosis of T10 and L3 [address] angiogram of the neck: 70% stenosis origin right internal carotid artery and 30 (stenosis origin left internal carotid artery. 50% stenosis of distal left vertebral artery. Assessment and plan: -Pneumonia, suspect gram-negative organism.: Not improving IV ceftriaxone. Mucinex. -Acute constipation. Lactulose 20 g. Add Metamucil. -Acute COPD exacerbation in a ex-smoker.: Slow to respond DuoNeb. Nebulized Pulmicort and long-acting beta agonist . -Paroxysmal atrial fibrillation, currently in sinus rhythm Lopressor 25 mg by mouth twice a day. Xarelto 20 mg daily at bedtime -Chronic tracheal bronchomalacia -Colonic diverticulosis, asymptomatic - Grabiel fundoplication, -Coronary artery disease with a prior history of stent Aspirin, Lopressor, -Stage IV adenocarcinoma of the lung received chemotherapy. In 2016. Most recently found a metastatic lesion in the right lung/spine/brain status post radiation in February 2022. Follow with pulmonary -Hypothyroidism Synthroid 50 g daily -Essential hypertension Cozaar 50 mg daily, Lopressor 25 twice a day -Obstructive sleep apnea -Chronic congestive heart failure from diastolic dysfunction EF 50-60%. Stable Lasix 20 mg daily -Moderate aortic stenosis with sclerosis nonrheumatic Follow clinically -Primary osteoarthritis multiple joints Use. Medications as needed -Chronic kidney disease. 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 Follow clinically - chronic 70% stenosis origin right ICA. IV ceftriaxone. Mucinex. Nebulized bronchodilators. IV Solu-Medrol. Incentive spirometry. Discussed with patient. Continue current treatment.
[2022-04-29] MEDS: ATORVASTATIN 40 MG TAB PO SCH (20:23)
[2022-04-29] MEDS: PANTOPRAZOLE 40 MG TABLET PO SCH (20:23)
[2022-04-29] MEDS: ZOLPIDEM 5 MG TAB PO SCH (20:24)
[2022-04-29] MEDS: MONTELUKAST 10 MG TAB PO SCH (20:24)
[2022-04-30] MEDS: methylPREDNISolone SOD SUCCI 125 MG/2 ML VIAL IV SCH ×2 (01:52→08:15)
[2022-04-30] MEDS: LEVOTHYROXINE 50 MCG TAB PO SCH (06:11)
[2022-04-30] MEDS: IPRATROPIUM-ALBUTEROL 3 ML NEB INHALATION SCH ×4 (07:33→19:18)
[2022-04-30] MEDS: BUDESONIDE 1 MG/2 ML NEBU INHALATION SCH ×2 (07:33→19:18)
[2022-04-30] MEDS: FORMOTEROL FUMARATE 20 MCG/2 ML NEBU INHALATION SCH ×2 (07:33→19:18)
[2022-04-30] MEDS: guaiFENesin 600 MG TABLET.ER PO SCH ×4 (08:24→22:12)
[2022-04-30] MEDS: FOLIC ACID 1 MG TAB PO SCH (08:24)
[2022-04-30] MEDS: TAMSULOSIN 0.4 MG CAP.ER.24H PO SCH (08:24)
[2022-04-30] MEDS: METOPROLOL TARTRATE 25 MG TAB PO SCH ×3 (08:24→22:13)
[2022-04-30] MEDS: SERTRALINE 50 MG TAB PO SCH (08:24)
[2022-04-30] MEDS: PSYLLIUM HUSK 100% 6 GM PACKET PO SCH (08:25)
[2022-04-30] MEDS: LOSARTAN 50 MG TAB PO SCH (08:25)
[2022-04-30] MEDS: AMIODARONE 200 MG TAB PO SCH (08:25)
[2022-04-30] MEDS ORDERED: FUROSEMIDE 10 MG/ML 4 ML VIAL IV STA (11:41)
[2022-04-30] MEDS ORDERED: predniSONE 20 MG TAB PO SCH (11:45)
[2022-04-30] MEDS ORDERED: LEVOFLOXACIN 750 MG TAB PO SCH (11:45)
[2022-04-30] MEDS: CEFEPIME 2 GM in SODIUM CHLORIDE 0.9% 100 ML IVPB SCH ×2 (12:31→22:13)
[2022-04-30 13:10] LABS: ALT 63 U/L (4-49); AST 44 U/L (17-59); African American GFR (CKD) 33 (>60 ml/min/1.73 sqM); Albumin 3.2 g/dL (3.5-5.0); Albumin/Globulin Ratio 1.3; Alkaline Phosphatase 104 U/L (38-126); Anion Gap 14 mmol/L; Blood Urea Nitrogen 61 mg/dL (9-20); Calcium 9.3 mg/dL (8.4-10.2); Carbon Dioxide 22 mmol/L (22-30); Chloride 91 mmol/L (98-107); Globulin 2.5 g/dL; Glucose 147 mg/dL (74-99); Non-African American GFR(CKD) 29 (>60 ml/min/1.73 sqM); Potassium 4.1 mmol/L (3.5-5.1); Sodium 127 mmol/L (137-145); Total Bilirubin 0.3 mg/dL (0.2-1.3); Total Protein 5.7 g/dL (6.3-8.2)
[2022-04-30 13:26] LABS: Basophils % (A) 0 %; Eosinophils % (A) 0 %; HCT 33.8 % (39.0-53.0); HGB 11.2 gm/dL (13.0-17.5); Lymphocytes # (A) 0.3 k/uL (1.0-4.8); Lymphocytes % (A) 3 %; MCH 30.6 pg (25.0-35.0); MCHC 33.3 g/dL (31.0-37.0); MCV 91.9 fL (80.0-100.0); Mean Platelet Volume 8.3; Monocytes # (A) 0.4 k/uL (0-1.0); Monocytes % (A) 4 %; Neutrophils # (A) 8.8 k/uL (1.3-7.7); Neutrophils % (A) 91 %; Platelet Count 241 k/uL (150-450); RBC 3.67 m/uL (4.30-5.90); RDW 15.4 % (11.5-15.5); WBC 9.7 k/uL (3.8-10.6)
--- NOTE | 2022-04-30 14:17 | P.PN ---
Subjective Progress Note Date: 04/30/22 This is a very 82-year-old male patient who follows with Dr. Melendez as his primary care provider. He has a history of coronary artery disease with previous stent placements, hypothyroidism, atrial fibrillation anticoagulated with Xarelto, BPH, hypertension, obstructive sleep apnea, gastroesophageal reflu x disease, previous TAVR procedure. He has COPD and follows with Dr. Sheppard in our office. 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 His January 2022 PET scan revealed stable medial right upper lung hypermetabolic nodule. There is new suspicious hypermetabolic destruction destructive lesion involving the anterior T10 vertebrae suspicious for early osseous metastases metastatic disease. He did undergo radiation to the spine, right lung and brain. MRI of the brain from 04/07/2022 revealed right cerebellar lesion continued to show thin rim enhancement. Likely responding to site of treated disease. He is due for repe at scans next month. He presented here to the emergency room early this morning with complaints of abdominal discomfort and shortness of breath. ET scan of the abdomen revealed consolidation of the right lung base. Small bilateral pleural effusions. These are interval findings compared to January 2022. There is diverticulosis without acute diverticulitis. Small right renal cortical cyst. Sclerotic T10 and L3 vertebral bodies. Chest x-ray revealed focal correlation for atypical pulmonary edema versus left lower lobe pneumonia. Cardiomegaly with prominent, and a vascular markings and diffuse bilateral lung infiltrates possible congestive heart failure. He is seen in consultation in the emergency room. He is sitting up on the stretcher. Awake and alert. He is coughing up blood-tinged sputum. He is afebrile. He was hypoxemic and is currently 88% O2 saturation on 6 L nasal cannula. White count 8.8. Hemoglobin 12.1. Sodium 132. Potassium 4.9. BUN 24. Creatinine 1.46. AST 68. ALT 51. ProBNP 2920. Amylase 61. Lipase 299. Hernandez virus by PCR not detected. He was initiated on ceftriaxone and azithromycin along with DuoNeb inhalations. Blood cultures are pending. Pro-calcitonin pending. Sputum culture pending. The patient is seen today 04/28/2022 in follow-up on the regular medical floor. He is currently sitting up in bed. Awake and alert in no acute distress. Continue O2 saturations in the 90s on 6 L high flow nasal cannula. He's been afebrile. Hemodynamically stable. His main complaint today is of nausea. Chest x-ray reveals cardiomegaly with small bilateral effusions present prominent pulmonary vascular markings with diffuse bilateral lung infiltrates. More focal in the right lung. Sputum culture pending. Blood cultures reveal no growth thus far. He is continued on DuoNeb inhalations, Pulmicort and Perforomist inhalations, IV site Medrol. Anticoagulated with Xarelto. Antibiotics in the form of ceftriaxone and azithromycin. Pro-calcitonin 0.21. 04/29/2022, the patient is still struggling with his breathing. He still short of breath congested and he gets short of breath with limited amount of activity. He remains on 6 L of O2 nasal cannula. The chest x-ray shows no major changes and the patient has extensive infiltration of the right lung along with infiltration of the lung bases bilaterally. Based on that, a computed donal graphy scan of the chest was done and computed tomography scan showed a new diffuse right lung groundglass opacity and more central organizing consolidation suggestive of any significant infiltrates/edema. The patient also has a small tiny left-sided pleural effusion along the right medial base area. There is a stable pleural-based lesion measuring 2.3 x 1.7 cm in size. Remains on bronchodilators. He remains on Pulmicort and Perforomist nebulized treatments around the clock. Remains on DuoNeb.the antibiotic coverage is in the form of Rocephin and Zithromax. The patienthas negative sputum sample and negative cultures. On 04/30/2022, the patient continues to struggle with his breathing and currently is requiring oxygen at 13 L per minute nasal cannula. As mentioned, this is a case of stage IV adenocarcinoma of the lung with metastasis to the spine and the brain and a new right upper lobe lesion for which the patient received SP RT. The patient is coming in with extensive right lung infiltration and a CAT scan of the chest was done yesterday a new diffuse groundglass opacity throughout the right lung and some areas of consolidating organizing consolidation in the central right suprahilar region. There is also stable pleural-based 2.3 x 1.7 cm left upper lobe lung nodule. The mediastinum is free of any significant lymph nodes. This could be an area of infection, and acute lung injury post radiation therapy, interstitial edema/fluid is felt to be less likely and that this is another asymmetric. Malignancy is also felt to be less likely due to the rapid progression and those abnormalities were not present on his earlier CAT scan that was done a few months back. Meanwhile, the patient had a blood work today that showed a sodium level of 127, BUN of 61 with a crea tinine of 2.06 and the patient has a white cell count 9.7 with a hemoglobin of 11.2 and a platelet count of 241. COVID 19 testing was negative. Influenza screen was done today and this came back negative. Objective - Vital Signs Vital signs: Vital Signs Temp 97.3 F L 04/30/22 08:00 Pulse 66 04/30/22 11:35 Resp 18 04/30/22 08:00 BP 163/79 04/30/22 08:00 Pulse Ox 90 L 04/30/22 08:00 FiO2 Intake & Output 04/29/22 04/30/22 04/30/22 18:59 06:59 18:59 Intake Total 1080 Balance 1080 Weight 92.5 kg Intake: Oral 1080 Other: Voiding Method Toilet Toilet # Voids 1 - Exam GENERAL EXAM: Alert, pleasant 82-year-old female patient, 13 L nasal cannula, fairly comfortable in no apparent distress. HEAD: Normocephalic. EYES: Normal reaction of pupils, equal size. NOSE: Clear with pink turbinates. THROAT: No erythema or exudates. NECK: No masses, no JVD. CHEST: No chest wall deformity. LUNGS: The patient has cracked and somewhat coarse in the right lung base and most of the catheter present on the right compared to the left lung. CVS: S1 and S2 normal with no audible murmur, regular rhythm. ABDOMEN: No hepatosplenomegaly, normal bowel sounds, no guarding or rigidity. SPINE: No scoliosis or deformity SKIN: No rashes CENTRAL NERVOUS SYSTEM: No focal deficits, tone is normal in all 4 extremities. EXTREMITIES: There is no peripheral edema. No clubbing, no cyanosis. Peripheral pulses are intact. - Labs CBC & Chem 7: 04/30/22 12:30 04/30/22 12:30 Labs: Abnormal Lab Results - Last 24 Hours (Table) 04/30/22 04/30/22 Range/Units 12:30 12:30 RBC 3.67 L (4.30-5.90) m/uL Hgb 11.2 L (13.0-17.5) gm/dL Hct 33.8 L (39.0-53.0) % Neutrophils # 8.8 H (1.3-7.7) k/uL Lymphocytes # 0.3 L (1.0-4.8) k/uL Sodium 127 L (137-145) mmol/L Chloride 91 L (98-107) mmol/L BUN 61 H (9-20) mg/dL Creatinine 2.06 H (0.66-1.25) mg/dL Glucose 147 H (74-99) mg/dL ALT 63 H (4-49) U/L Total Protein 5.7 L (6.3-8.2) g/dL Albumin 3.2 L (3.5-5.0) g/dL Microbiology - Last 24 Hours (Table) 04/27/22 09:50 Blood Culture - Preliminary Blood No Growth after 72 hours 04/27/22 10:07 Blood Culture - Preliminary Blood No Growth after 72 hours 04/27/22 11:54 Gram Stain - Final Sputum Sputum Culture - Final Assessment and Plan Assessment: Acute hypoxemic respiratory failure secondary to extensive pneumonia the patient had diffuse groundglass pulmonary infiltration of the right lung. Rule out atypical pneumonia. Rule out radiation pneumonia. Infiltration of the malignancy involving the right lung is felt to be less likely. The patient had progressive worsening in the oxygenation currently is up to 13 L of oxygen by nasal cannula. CAT scan of the chest shows a new groundglass right lung pul monary infiltrate which is quite extensive with central areas of consolidation and this is a new finding. Malignancy is felt to be less likely. This could be an area of acute lung injury post radiation therapy, this could be also radiation pneumonitis. Infections including atypical microorganisms cannot be ruled out. The patient is less likely to have interstitial edema/asymmetric pulmonary edema. Acute hyponatremia sodium level is down to 127 Acute on chronic kidney injury in the creatinine is up to 2.1 Abdominal pain of unclear etiology. CT scan of the abdomen and pelvis revealed diverticulosis without acute diverticulitis. Small right renal cortical cysts. Acute on chronic diastolic congestive heart failure History of atrial fibrillation, anticoagulated with Xarelto History of previous COVID-19 infection in June 2021 receiving monoclonal antibodies. He is vaccinated and boosted. CoVID screen this admission negative History of metastatic left lung pulmonary adenocarcinoma initial diagnosis in 2016 most recently found to have metastatic lesions to the right lung, spine and brain status post radiation in February 2022 Coronary artery disease with previous stent placement 3 History of aortic valve stenosis status post TAVR procedure Hyperlipidemia Chronic kidney disease History of small bowel resection with ostomy and subsequent reversal History of prostate cancer status post radiation History of skin cancer status post resection Hypothyroidism Hypertension Plan: Restart the patient on gentle hydration with normal saline at the rate of 50 mL an hour Influenza screen was negative We'll check a Legionella urine antigen Check pro calcitonin and this will be rechecked initial level was at 0.21 Cover the patient with a combination of cefepime and Levaquin Patient was having significant amount of side effects to steroids. This will be discontinued and the patient will be placed on 40 mg of prednisone May benefit from bronchoscopy is no improvement as the patient diffuse infiltration of the right lung and the exact etiology is not clearas the patient's cultures are negative and the patient's pro calcitonin level is at 0.21 and the COVID 19 testing were negative. keep same antibiotic coverage for now. continue anticoagulation we'll continue to follow. I did have a lengthy discussion with the at the bedside and explained the situation. Very understanding . Condition however is quite concerning especially with the progression of this patient's pulmonary infiltrate and hypoxic respiratory failure that the patient and counseling.
--- NOTE | 2022-04-30 17:23 | P.PN ---
Progress Note - Text Progress Note Date: 04/30/22 Chief Complaint: Short of breath History present complaint: This is a pleasant 82-year-old patient of Dr. Roxie Melendez. Chronic stable medical conditions include coronary artery disease, CHF with EF of 50-65%, moderate aortic stenosis with sclerosis, atrial fibrillation, COPD, GERD, hyperlipidemia, hypertension, primary osteoarthritis,(s) sleep apnea, hypothyroid. 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 treated with chemotherapy -being followed with Dr. Rutherford. last chemotherapy in October 2019 History of Grabiel fundoplication, has had small bowel obstruction with resection colostomy and reversal of the same. prostate cancer treated with radiation.. Bronchoscopy in March 2021 negative for malignant cells. June 2021 had COVID 19. Patient now presents with increasing shortness of breath last 3-4 days. Congested cough. Able to expectorate only a little amount. Fevers. Poor appetite. Not been sleeping well. Normally uses a cane. Currently just become very weak in the last 2-3 days. No bowel movement for 3 days. Also complaining of some abdominal discomfort. No nausea vomiting. Admitted with pneumonia/tracheal bronchitis. IV ceftriaxone. COPD exacerbation. April 28: Sitting in the 80s the bed. Breathing a bit better. Decreased cough. Told to use incentive spirometry. Discussed with the patient and . Increase activity. On IV Solu-Medrol April 29: Sitting up in a chair. Tired.. A lot of coughing. Not much expectoration. Short of breath. CT chest showing consolidation/infiltrate, ordered by pulmonary. Continue with ceftriaxone. Steroids. Decreased appetite April 30: Oxygen requirement 13 L. Computed tomography scan results discussed with Dr. Sigala. Pneumonia/pneumonitis/radiation injury all possible. IV Solu-Medrol changed to prednisone. Tired. at the bedside. 90 discussion with the patient and about CODE STATUS. Wishes to be DO NOT RESUSCITATE. Some cough. Active Medications Acetaminophen (Acetaminophen Tab 325 Mg Tab) 650 mg PO Q6HR PRN PRN Reason: Mild Pain or Fever > 100.5 Albuterol Sulfate (Albuterol Nebulized 2.5 Mg/3 Ml) 2.5 mg INHALATION RT-Q2H PRN PRN Reason: Shortness Of Breath Or Wheezing Albuterol/Ipratropium (Ipratropium-Albuterol 3 Ml Neb) 3 ml INHALATION RT-QID [facility] Last Admin: 04/30/22 15:47 Dose: 3 ml Amiodarone HCl (Amiodarone 200 Mg Tab) 200 mg PO DAILY [facility] Last Admin: 04/30/22 08:25 Dose: 200 mg Atorvastatin Calcium (Atorvastatin 40 Mg Tab) 40 mg PO HS [facility] Last Admin: 04/29/22 20:23 Dose: 40 mg Budesonide (Budesonide 1 Mg/2 Ml Nebu) 1 mg INHALATION RT-BID [facility] Last Admin: 04/30/22 07:33 Dose: 1 mg Calcium Carbonate/Glycine (Calcium Carbonate 500 Mg Chewable) 1,000 mg PO Q4HR PRN PRN Reason: Dyspepsia Last Admin: 04/29/22 00:28 Dose: 1,000 mg Folic Acid (Folic Acid 1 Mg Tab) 1 mg PO DAILY [facility] Last Admin: 04/30/22 08:24 Dose: 1 mg Formoterol Fumarate (Formoterol Fumarate 20 Mcg/2 Ml Nebu) 20 mcg INHALATION RT-BID [facility] Last Admin: 04/30/22 07:33 Dose: 20 mcg Guaifenesin (Guaifenesin 600 Mg Tablet.Er) 600 mg PO QID [facility] Last Admin: 04/30/22 12:28 Dose: 600 mg Cefepime HCl 2 gm/ Sodium (Chloride) 100 mls @ 25 mls/hr IVPB Q12HR [facility]; Protocol Last Admin: 04/30/22 12:31 Dose: 25 mls/hr Sodium Chloride (Saline 0.9%) 1,000 mls @ 50 mls/hr IV .Q20H JUSTEN Levofloxacin (Levofloxacin 750 Mg Tab) 750 mg PO Q48H [facility]; Protocol Levothyroxine Sodium (Levothyroxine 50 Mcg Tab) 50 mcg PO DAILY@0630 [facility] Last Admin: 04/30/22 06:11 Dose: 50 mcg Lorazepam (Lorazepam 0.5 Mg Tab) 0.5 mg PO Q6HR PRN PRN Reason: Anxiety Last Admin: 04/29/22 06:26 Dose: 0.5 mg Losartan Potassium (Losartan 50 Mg Tab) 50 mg PO DAILY [facility] Last Admin: 04/30/22 08:25 Dose: 50 mg Metoprolol Tartrate (Metoprolol Tartrate 25 Mg Tab) 25 mg PO BID [facility] Last Admin: 04/30/22 08:28 Dose: 25 mg Miscellaneous Information (Pneumonia Protocol Utilized 1 Each Misc) 1 each PO ONCE PRN PRN Reason: Per Protocol Miscellaneous Information (Rx Info: Iv Contrast Was Given 1 Each Misc) 1 each MISCELLANE DAILY PRN PRN Reason: Per Protocol Stop: 05/01/22 11:05 Montelukast Sodium (Montelukast 10 Mg Tab) 10 mg PO HS [facility] Last Admin: 04/29/22 20:24 Dose: 10 mg Naloxone HCl (Naloxone 0.4 Mg/Ml 1 Ml Vial) 0.2 mg IV Q2M PRN PRN Reason: Opioid Reversal Ondansetron HCl (Ondansetron 4 Mg/2 Ml Vial) 4 mg IVP Q6HR PRN PRN Reason: Nausea And Vomiting Last Admin: 04/29/22 06:13 Dose: 4 mg Pantoprazole Sodium (Pantoprazole 40 Mg Tablet) 40 mg PO HS [facility] Last Admin: 04/29/22 20:23 Dose: 40 mg Prednisone (Prednisone 20 Mg Tab) 40 mg PO DAILY [facility] Last Admin: 04/30/22 12:25 Dose: 40 mg Psyllium Hydrophilic Mucilloid (Psyllium Husk 100% 6 Gm Packet) 6 gm PO DAILY [facility] Last Admin: 04/30/22 08:25 Dose: 6 gm Rivaroxaban (Rivaroxaban 20 Mg Tab) 20 mg PO W/SUPPER [facility]; Protocol Last Admin: 04/29/22 17:07 Dose: 20 mg Sertraline HCl (Sertraline 50 Mg Tab) 50 mg PO DAILY [facility] Last Admin: 04/30/22 08:24 Dose: 50 mg Tamsulosin HCl (Tamsulosin 0.4 Mg Cap.Er.24h) 0.4 mg PO DAILY [facility] Last Admin: 04/30/22 08:24 Dose: 0.4 mg Zolpidem Tartrate (Zolpidem 5 Mg Tab) 5 mg PO [facility] Past medical history: Include Coronary artery disease with stent , stage IV adenocarcinoma of the lung on chemotherapy-last time in October 2019, history of Grabiel fundoplication, COPD in an ex-smoker, hypothyroidism, essential hypertension, hyperlipidemia, obstructive sleep apnea, CHF with diastolic dysfunction, moderate aortic stenosis with sclerosis. January 2020 - GI bleed. EGD was unremarkable. Bronchomalacia, atrial fibrillation, COVID 19 Social history: . Smoked from age of 14 through 1982 . alcohol occasionally. Retired. Uses a cane Family history: sister had rectal cancer Physical examination: VITAL SIGNS: 98.2, 61, 17, 1:30/72, 90% on 13 L GENERAL: Sitting up in chair, short of breath EYES: Pupils equal. Conjunctiva normal. HEENT: External appearance of nose and ears normal, oral cavity normal. NECK: JVD not raised; masses not palpable. HEART: First and second heart sounds are normal; no edema. LUNGS: Respiratory rate increased, decreased breath sounds, right-sided coarse crackles. ABDOMEN: Soft, nontender, , liver spleen not palpable, no masses palpable. PSYCH: Alert and oriented x3; mood and affect anxious INVESTIGATIONS, reviewed in the clinical context: April 30: White count 9.7 hemoglobin 11.2 sodium 127 potassium 4.1 BUN 61 creatinine 2.06 Computed tomography scan chest: Extensive right-sided infiltrate/consolidation Pro-calcitonin 0.21 White count 8.8 hemoglobin 12.1 platelets 202 sodium 132 potassium 4.9. 24 creatinine 1.46 COVID 19: Not detected Chest x-ray film personally reviewed by me-acute and/or chronic changes Computed tomography scan abdomen and pelvis: Consolidation right lung base, small bilateral pleural effusions. Diverticulosis. Sclerosis of T10 and L3 [address] angiogram of the neck: 70% stenosis origin right internal carotid artery and 30 (stenosis origin left internal carotid artery. 50% stenosis of distal left vertebral artery. Assessment and plan: -Pneumonia, suspect gram-negative organism.: Not improving IV cefepime -Acute hypoxic respiratory failure, worsening 13 L high flow -Acute constipation. Lactulose 20 g. Add Metamucil. -Acute COPD exacerbation in a ex-smoker.: Slow to respond DuoNeb. Nebulized Pulmicort and long-acting beta agonist. Oral prednisone . -Paroxysmal atrial fibrillation, currently in sinus rhythm Lopressor 25 mg by mouth twice a day. Xarelto 20 mg daily at bedtime -Chronic tracheal bronchomalacia -Colonic diverticulosis, asymptomatic - Grabiel fundoplication, -Coronary artery disease with a prior history of stent Aspirin, Lopressor, -Stage IV adenocarcinoma of the lung received chemotherapy. In 2016. Most recently found a metastatic lesion in the right lung/spine/brain status post radiation in February 2022. Follow with pulmonary -Hypothyroidism Synthroid 50 g daily -Essential hypertension Cozaar 50 mg daily, Lopressor 25 twice a day -Obstructive sleep apnea -Chronic congestive heart failure from diastolic dysfunction EF 50-60%. Stable Lasix 20 mg daily-hold -Moderate aortic stenosis with sclerosis nonrheumatic Follow clinically -Primary osteoarthritis multiple joints Use. Medications as needed -Chronic kidney disease. 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 Follow clinically - chronic 70% stenosis origin right ICA. IV ceftriaxone changed to IV cefepime. IV Solu-Medrol changed to oral prednisone. Requiring high flow oxygen. [address] Sigala. Pneumonitis/radiation injury/pneumonia and differential. Advanced care planning: Discussed with the patient and at bedside. Several questions answered. Patient understand his prognosis is guarded. Especially in the view of cancer. He decided to proceed with DO NOT RESUSCITATE. Time spent about 25 minutes with this
[2022-04-30] MEDS: RIVAROXABAN 20 MG TAB PO SCH (19:20)
[2022-04-30] MEDS: SODIUM CHLORIDE 0.9% 1,000 ML IV SCH (19:21)
[2022-04-30] MEDS ORDERED: ZOLPIDEM 5 MG TAB PO SCH (21:00)
[2022-04-30] MEDS: MONTELUKAST 10 MG TAB PO SCH (22:13)
[2022-04-30] MEDS: ATORVASTATIN 40 MG TAB PO SCH (22:13)
[2022-04-30] MEDS: PANTOPRAZOLE 40 MG TABLET PO SCH (22:13)
[2022-05-01] MEDS ORDERED: FUROSEMIDE 10 MG/ML 10 ML VIAL IV STA ×2 (00:50→03:11)
[2022-05-01] MEDS: LORazepam 0.5 MG TAB PO PRN (01:50)
[2022-05-01] MEDS: LEVOTHYROXINE 50 MCG TAB PO SCH (05:27)
--- NOTE | 2022-05-01 07:51 | XR ---
EXAMINATION TYPE: XR chest 1V portable DATE OF EXAM: 05/01/2022 7:13 AM COMPARISON: Chest radiographs from 04/29/2022, CT chest 05/17/2022 TECHNIQUE: XR chest 1V portable Frontal view of the chest. CLINICAL INDICATION:Male, 82 years old with history of Pneumonia; FINDINGS: Persistent cardiomegaly with stent graft in the aortic root and atherosclerotic and ectatic thoracic aorta. Chronic parenchymal changes with diffuse increased reticular opacities throughout the right lung rede monstrated. Stable small bilateral pleural effusions. Metallic hardware from bilateral shoulder surge ry is partially imaged. IMPRESSION: 1. Diffuse right lung infiltrates are unchanged. 2. Stable cardiomegaly with small bilateral pleural effusions.
[2022-05-01 08:24] LABS: ABG Base Excess -2.2 mmol/L; ABG HCO3 22 mmol/L (21-25); ABG Hematocrit 32 % (34.0-46.0); ABG Oxygen Saturation 93.8 % (94-97); ABG PCO2 35 mmHg (35-45); ABG PH 7.41 (7.35-7.45); ABG PO2 67 mmHg (83-108); ABG TCO2 24 mmol/L (19-24); Allen Test Performed? Yes
[2022-05-01] MEDS: FORMOTEROL FUMARATE 20 MCG/2 ML NEBU INHALATION SCH (08:34)
[2022-05-01] MEDS: IPRATROPIUM-ALBUTEROL 3 ML NEB INHALATION SCH ×2 (08:34→11:00)
[2022-05-01] MEDS: BUDESONIDE 1 MG/2 ML NEBU INHALATION SCH (08:34)
[2022-05-01 08:40] LABS: Glucose,Whole Blood 138 mg/dL (70-110)
[2022-05-01] MEDS ORDERED: DEXMEDETOMIDINE/0.9% NACL(PMX) 400 MCG in EMPTY BAG 1 BAG IV SCH (08:45)
[2022-05-01] MEDS ORDERED: methylPREDNISolone SOD SUCCI 125 MG/2 ML VIAL IV SCH (09:00)
[2022-05-01 09:14] LABS: Basophils # (A) 0.02 X 10*3/uL (0.00-0.10); Basophils % (A) 0.2 %; Eosinophils # (A) 0 X 10*3/uL (0.04-0.35); Eosinophils % (A) 0 %; HCT 30.3 % (39.6-50.0); HGB 10.1 g/dL (13.0-17.0); Immature Grans, Automated 1.7 %; Lymphocytes # (A) 0.27 X 10*3/uL (0.90-5.00); Lymphocytes % (A) 2.7 %; MCH 29.4 pg (27.0-32.0); MCHC 33.3 g/dL (32.0-37.0); MCV 88.1 fL (80.0-97.0); Mean Platelet Volume 10.3 fL (9.5-12.2); Monocytes # (A) 0.95 X 10*3/uL (0.20-1.00); Monocytes % (A) 9.4 %; NRBC Per 100 WBC 0 /100 WBCS (0.0-0.0); Neutrophils # (A) 8.75 X 10*3/uL (1.80-7.70); Platelet Count 224 X 10*3/uL (140-440); RBC 3.44 X 10*6/uL (4.40-5.60); WBC 10.16 X 10*3/uL (4.50-10.00)
[2022-05-01] MEDS: SODIUM CHLORIDE 0.9% 1,000 ML IV SCH (09:17)
[2022-05-01 09:25] LABS: Basophils % (A) 0 %; Eosinophils % (A) 0 %; HCT 33.8 % (39.0-53.0); HGB 11.2 gm/dL (13.0-17.5); Lymphocytes # (A) 0.4 k/uL (1.0-4.8); Lymphocytes % (A) 3 %; MCH 29.6 pg (25.0-35.0); MCV 89.5 fL (80.0-100.0); Mean Platelet Volume 7.9; Monocytes # (A) 0.8 k/uL (0-1.0); Monocytes % (A) 7 %; Neutrophils # (A) 9.4 k/uL (1.3-7.7); Neutrophils % (A) 87 %; Platelet Count 247 k/uL (150-450); RBC 3.78 m/uL (4.30-5.90); RDW 14.9 % (11.5-15.5); WBC 10.8 k/uL (3.8-10.6)
[2022-05-01] MEDS: CEFEPIME 2 GM in SODIUM CHLORIDE 0.9% 100 ML IVPB SCH (09:30)
[2022-05-01] MEDS: METOPROLOL TARTRATE 25 MG TAB PO SCH (09:39)
[2022-05-01 09:53] VITALS: TEMP 98.5
[2022-05-01 10:02] LABS: ALT 67 U/L (4-49); AST 55 U/L (17-59); African American GFR (CKD) 27 (>60 ml/min/1.73 sqM); Albumin 3.1 g/dL (3.5-5.0); Albumin/Globulin Ratio 1.2; Alkaline Phosphatase 110 U/L (38-126); Anion Gap 12 mmol/L; Blood Urea Nitrogen 70 mg/dL (9-20); Calcium 8.9 mg/dL (8.4-10.2); Carbon Dioxide 23 mmol/L (22-30); Chloride 93 mmol/L (98-107); Globulin 2.5 g/dL; Glucose 119 mg/dL (74-99); Non-African American GFR(CKD) 24 (>60 ml/min/1.73 sqM); Potassium 3.9 mmol/L (3.5-5.1); Sodium 128 mmol/L (137-145); Total Bilirubin 0.3 mg/dL (0.2-1.3); Total Protein 5.6 g/dL (6.3-8.2)
[2022-05-01] MEDS: AMIODARONE 200 MG TAB PO SCH (10:12)
[2022-05-01] MEDS: LOSARTAN 50 MG TAB PO SCH (10:13)
[2022-05-01] MEDS: PSYLLIUM HUSK 100% 6 GM PACKET PO SCH (10:17)
[2022-05-01] MEDS: TAMSULOSIN 0.4 MG CAP.ER.24H PO SCH (10:20)
[2022-05-01] MEDS: FOLIC ACID 1 MG TAB PO SCH (10:20)
[2022-05-01] MEDS: guaiFENesin 600 MG TABLET.ER PO SCH ×2 (10:20→12:22)
[2022-05-01] MEDS: SERTRALINE 50 MG TAB PO SCH (11:53)
[2022-05-01 11:55] LABS: African American GFR (CKD) 27.3 (60.0-200.0); Albumin 3.1 g/dL (3.8-4.9); Albumin/Globulin Ratio 1.43 (1.60-3.17); Anion Gap 16.7 mmol/L (10.00-18.00); BUN/Creat Ratio 26.42 Ratio (12.00-20.00); Blood Urea Nitrogen 64.2 mg/dL (9.0-27.0); Calcium 9.1 mg/dL (8.7-10.3); Carbon Dioxide 18.3 mmol/L (20.0-27.5); Globulin 2.2 g/dL (1.6-3.3); Non-African American GFR(CKD) 23.5 (60.0-200.0); Total Bilirubin 0.2 mg/dL (0.30-1.20); Total Protein 5.3 g/dL (6.2-8.2)
[2022-05-01] MEDS ORDERED: LORazepam 2 MG/ML INJ IV STA (11:58)
[2022-05-01] MEDS ORDERED: LORazepam 1 MG/0.5 ML VIAL ONE (12:08)
[2022-05-01] MEDS ORDERED: HALOPERIDOL LACTATE 5 MG/ML 1 ML VIAL IVP STA (12:15)
[2022-05-01] MEDS: HYDROmorphone 1 MG/ML 1 ML SYRINGE IVP PRN ×2 (12:31→13:15)
--- NOTE | 2022-05-01 12:37 | P.PN ---
Subjective Progress Note Date: 05/01/22 This is a very 82-year-old male patient who follows with Dr. Melendez as his primary care provider. He has a history of coronary artery disease with previous stent placements, hypothyroidism, atrial fibrillation anticoagulated with Xarelto, BPH, hypertension, obstructive sleep apnea, gastroesophageal reflu x disease, previous TAVR procedure. He has COPD and follows with Dr. Sheppard in our office. 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 His January 2022 PET scan revealed stable medial right upper lung hypermetabolic nodule. There is new suspicious hypermetabolic destruction destructive lesion involving the anterior T10 vertebrae suspicious for early osseous metastases metastatic disease. He did undergo radiation to the spine, right lung and brain. MRI of the brain from 04/07/2022 revealed right cerebellar lesion continued to show thin rim enhancement. Likely responding to site of treated disease. He is due for repe at scans next month. He presented here to the emergency room early this morning with complaints of abdominal discomfort and shortness of breath. ET scan of the abdomen revealed consolidation of the right lung base. Small bilateral pleural effusions. These are interval findings compared to January 2022. There is diverticulosis without acute diverticulitis. Small right renal cortical cyst. Sclerotic T10 and L3 vertebral bodies. Chest x-ray revealed focal correlation for atypical pulmonary edema versus left lower lobe pneumonia. Cardiomegaly with prominent, and a vascular markings and diffuse bilateral lung infiltrates possible congestive heart failure. He is seen in consultation in the emergency room. He is sitting up on the stretcher. Awake and alert. He is coughing up blood-tinged sputum. He is afebrile. He was hypoxemic and is currently 88% O2 saturation on 6 L nasal cannula. White count 8.8. Hemoglobin 12.1. Sodium 132. Potassium 4.9. BUN 24. Creatinine 1.46. AST 68. ALT 51. ProBNP 2920. Amylase 61. Lipase 299. Hernandez virus by PCR not detected. He was initiated on ceftriaxone and azithromycin along with DuoNeb inhalations. Blood cultures are pending. Pro-calcitonin pending. Sputum culture pending. The patient is seen today 04/28/2022 in follow-up on the regular medical floor. He is currently sitting up in bed. Awake and alert in no acute distress. Continue O2 saturations in the 90s on 6 L high flow nasal cannula. He's been afebrile. Hemodynamically stable. His main complaint today is of nausea. Chest x-ray reveals cardiomegaly with small bilateral effusions present prominent pulmonary vascular markings with diffuse bilateral lung infiltrates. More focal in the right lung. Sputum culture pending. Blood cultures reveal no growth thus far. He is continued on DuoNeb inhalations, Pulmicort and Perforomist inhalations, IV site Medrol. Anticoagulated with Xarelto. Antibiotics in the form of ceftriaxone and azithromycin. Pro-calcitonin 0.21. 04/29/2022, the patient is still struggling with his breathing. He still short of breath congested and he gets short of breath with limited amount of activity. He remains on 6 L of O2 nasal cannula. The chest x-ray shows no major changes and the patient has extensive infiltration of the right lung along with infiltration of the lung bases bilaterally. Based on that, a computed donal graphy scan of the chest was done and computed tomography scan showed a new diffuse right lung groundglass opacity and more central organizing consolidation suggestive of any significant infiltrates/edema. The patient also has a small tiny left-sided pleural effusion along the right medial base area. There is a stable pleural-based lesion measuring 2.3 x 1.7 cm in size. Remains on bronchodilators. He remains on Pulmicort and Perforomist nebulized treatments around the clock. Remains on DuoNeb.the antibiotic coverage is in the form of Rocephin and Zithromax. The patienthas negative sputum sample and negative cultures. On 04/30/2022, the patient continues to struggle with his breathing and currently is requiring oxygen at 13 L per minute nasal cannula. As mentioned, this is a case of stage IV adenocarcinoma of the lung with metastasis to the spine and the brain and a new right upper lobe lesion for which the patient received SP RT. The patient is coming in with extensive right lung infiltration and a CAT scan of the chest was done yesterday a new diffuse groundglass opacity throughout the right lung and some areas of consolidating organizing consolidation in the central right suprahilar region. There is also stable pleural-based 2.3 x 1.7 cm left upper lobe lung nodule. The mediastinum is free of any significant lymph nodes. This could be an area of infection, and acute lung injury post radiation therapy, interstitial edema/fluid is felt to be less likely and that this is another asymmetric. Malignancy is also felt to be less likely due to the rapid progression and those abnormalities were not present on his earlier CAT scan that was done a few months back. Meanwhile, the patient had a blood work today that showed a sodium level of 127, BUN of 61 with a crea tinine of 2.06 and the patient has a white cell count 9.7 with a hemoglobin of 11.2 and a platelet count of 241. COVID 19 testing was negative. Influenza screen was done today and this came back negative. 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 Overnight, the patient was given diuretics by the primary care team and I made also modification his antibiotic course. Nevertheless, the patient continued to be hypoxic and short of breath and his condition decompensated and he was becoming more restless and delirious and agitated. He got moved to the intensive care unit where he was started on Precedex and the dose was titrated gradually to control his restlessness and agitation. At the same time, the patient became more hypoxic and the patient was placed on on the percent nonrebreather facemask. I reviewed the chest x-ray and there is extensive right lung consolidation/pulmonary infiltrate, unchanged compared to yesterday. The patient remains on a combination of cefepime and Levaquin. The patient was on prednisone I switched him back to IV Solu-Medrol as the patient was found to have significant amount of bronchospasm and wheezing earlier this morning in combination with [facility] treatment [id number], Pulmicort Respules and Perforomist. At the same time, the patient is having chest congestion and he had a wet congested cough and he was unable to bring up any sputum. He remains hemodynamically stable. In fact he became hypertensive as the patient was becoming more restless and delirious and agitated. The white cell count from today Marzena 0.8 and hemoglobin of 11.2 and a platelet count of 247. The blood gases was done immediately after he arrived to the intensive care unit and 100% nonrebreather facemask and the patient was found to have a pH of 7.41 with a pCO2 of 35 and a pO2 of 67. Blood work and electrodes showed a sodium level of 128, potassium level III.9 with a bicarb of 93 and a bicarb of 23. The BUN is at 70 with a creatinine of 2.4. Rest of electrolytes showed a potassium level of 3.9. LFTs were essentially within normal limits. His pro- calcitonin level at time of admission was 0.3. I had a lengthy discussion with the and later on several occasions arrived to the bedside and we had a lengthy discussion with them. I offered them the different treatment options including the potential of intubation mechanical ventilation bronchoscopy. The patient is known case of stage IV lung cancer and he has multiple medical problems and comorbidities at the age of 82. After having a lengthy discussion, the family opted for comfort care measures and no intubation. Note that the patient had a DNR/DNI CODE STATUS from the start. Objective - Vital Signs Vital signs: Vital Signs Temp 98.5 F 05/01/22 09:00 Pulse 70 05/01/22 11:10 Resp 29 H 05/01/22 11:00 BP 187/91 05/01/22 11:00 Pulse Ox 92 L 05/01/22 11:00 FiO2 100 05/01/22 08:34 Intake & Output 04/30/22 05/01/22 05/01/22 18:59 06:59 18:59 Intake Total 275.871 Output Total 1400 1050 Balance -1400 -774.129 Weight 94.5 kg Intake: IV 250 Cefepime 2 gm In Sodium 100 Chloride 0.9% 100 ml @ 25 mls/hr IVPB Q12HR JUSTEN Rx #:[id number] Sodium Chloride 0.9% 1, 150 000 ml @ 50 mls/hr IV . Q20H JUSTEN Rx#:[id number] Intake, IV Titration 25.871 Amount Dexmedetomidine/0.9% NaCl 25.871 (Pmx) 400 mcg In Empty Bag 1 bag @ 0.2 MCG/KG/HR 4.725 mls/hr IV .[id number] JUSTEN Rx#:[id number] Output: Urine 1400 1050 Other: Voiding Method Toilet Indwelling Catheter # Voids 5 - Exam GENERAL EXAM: Alert, pleasant 82-year-old female patient, respiratory distress, agitated, restless and 100% on a beta facemask HEAD: Normocephalic. EYES: Normal reaction of pupils, equal size. NOSE: Clear with pink turbinates. THROAT: No erythema or exudates. NECK: No masses, no JVD. CHEST: No chest wall deformity. LUNGS: The patient has cracked and somewhat coarse in the right lung base and most of the catheter present on the right compared to the left lung. Labored b reathing and the patient is using his muscles of breathing CVS: S1 and S2 normal with no audible murmur, regular rhythm. ABDOMEN: No hepatosplenomegaly, normal bowel sounds, no guarding or rigidity. SPINE: No scoliosis or deformity SKIN: No rashes CENTRAL NERVOUS SYSTEM: No focal deficits, tone is normal in all 4 extremities. Confused and delirious EXTREMITIES: There is no peripheral edema. No clubbing, no cyanosis. Peripheral pulses are intact. - Labs CBC & Chem 7: 05/01/22 09:08 05/01/22 09:08 Labs: Abnormal Lab Results - Last 24 Hours (Table) 04/30/22 04/30/22 04/30/22 Range/Units 12:30 12:30 12:30 WBC (4.50-10.00) X 10*3/uL RBC 3.67 L (4.30-5.90) m/uL Hgb 11.2 L (13.0-17.5) gm/dL Hct 33.8 L (39.0-53.0) % RDW (11.5-14.5) % Immature Gran # (0.00-0.04) X 10*3/uL Neutrophils # 8.8 H (1.3-7.7) k/uL Lymphocytes # 0.3 L (1.0-4.8) k/uL Eosinophils # (0.04-0.35) X 10*3/uL ABG pO2 (83-108) mmHg ABG O2 Saturation (94-97) % ABG Hematocrit (34.0-46.0) % Hemoglobin (13.0-17.5) gm/dL Sodium 127 L (137-145) mmol/L Chloride 91 L (98-107) mmol/L Carbon Dioxide (20.0-27.5) mmol/L BUN 61 H (9-20) mg/dL Creatinine 2.06 H (0.66-1.25) mg/dL Est GFR (CKD-EPI)AfAm (60.0-200.0) Est GFR (CKD-EPI)NonAf (60.0-200.0) BUN/Creatinine Ratio (12.00-20.00) Ratio Glucose 147 H (74-99) mg/dL POC Glucose (mg/dL) (70-110) mg/dL Total Bilirubin (0.30-1.20) mg/dL AST (14-35) U/L ALT 63 H (4-49) U/L Total Protein 5.7 L (6.3-8.2) g/dL Albumin 3.2 L (3.5-5.0) g/dL Albumin/Globulin Ratio (1.60-3.17) g/dL Procalcitonin 0.30 H (0.02-0.09) ng/mL 05/01/22 05/01/22 05/01/22 Range/Units 03:39 03:39 08:07 WBC 10.16 H (4.50-10.00) X 10*3/uL RBC 3.44 L (4.30-5.90) m/uL Hgb 10.1 L (13.0-17.5) gm/dL Hct 30.3 L (39.0-53.0) % RDW 15.0 H (11.5-14.5) % Immature Gran # 0.17 H (0.00-0.04) X 10*3/uL Neutrophils # 8.75 H (1.3-7.7) k/uL Lymphocytes # 0.27 L (1.0-4.8) k/uL Eosinophils # 0 L (0.04-0.35) X 10*3/uL ABG pO2 67 L (83-108) mmHg ABG O2 Saturation 93.8 L (94-97) % ABG Hematocrit 32 L (34.0-46.0) % Hemoglobin 10.4 L (13.0-17.5) gm/dL Sodium 128 L (137-145) mmol/L Chloride 93 L (98-107) mmol/L Carbon Dioxide 18.3 L (20.0-27.5) mmol/L BUN 64.2 H (9-20) mg/dL Creatinine 2.4 H (0.66-1.25) mg/dL Est GFR (CKD-EPI)AfAm 27.3 L (60.0-200.0) Est GFR (CKD-EPI)NonAf 23.5 L (60.0-200.0) BUN/Creatinine Ratio 26.42 H (12.00-20.00) Ratio Glucose 146 H (74-99) mg/dL POC Glucose (mg/dL) (70-110) mg/dL Total Bilirubin 0.20 L (0.30-1.20) mg/dL AST 51 H (14-35) U/L ALT 71 H (4-49) U/L Total Protein 5.3 L (6.3-8.2) g/dL Albumin 3.1 L (3.5-5.0) g/dL Albumin/Globulin Ratio 1.43 L (1.60-3.17) g/dL Procalcitonin (0.02-0.09) ng/mL 05/01/22 05/01/22 05/01/22 Range/Units 08:38 09:08 09:08 WBC 10.8 H (4.50-10.00) X 10*3/uL RBC 3.78 L (4.30-5.90) m/uL Hgb 11.2 L (13.0-17.5) gm/dL Hct 33.8 L (39.0-53.0) % RDW (11.5-14.5) % Immature Gran # (0.00-0.04) X 10*3/uL Neutrophils # 9.4 H (1.3-7.7) k/uL Lymphocytes # 0.4 L (1.0-4.8) k/uL Eosinophils # (0.04-0.35) X 10*3/uL ABG pO2 (83-108) mmHg ABG O2 Saturation (94-97) % ABG Hematocrit (34.0-46.0) % Hemoglobin (13.0-17.5) gm/dL Sodium 128 L (137-145) mmol/L Chloride 93 L (98-107) mmol/L Carbon Dioxide (20.0-27.5) mmol/L BUN 70 H (9-20) mg/dL Creatinine 2.42 H (0.66-1.25) mg/dL Est GFR (CKD-EPI)AfAm (60.0-200.0) Est GFR (CKD-EPI)NonAf (60.0-200.0) BUN/Creatinine Ratio (12.00-20.00) Ratio Glucose 119 H (74-99) mg/dL POC Glucose (mg/dL) 138 H (70-110) mg/dL Total Bilirubin (0.30-1.20) mg/dL AST (14-35) U/L ALT 67 H (4-49) U/L Total Protein 5.6 L (6.3-8.2) g/dL Albumin 3.1 L (3.5-5.0) g/dL Albumin/Globulin Ratio (1.60-3.17) g/dL Procalcitonin (0.02-0.09) ng/mL Microbiology - Last 24 Hours (Table) 04/27/22 10:07 Blood Culture - Preliminary Blood No Growth after 96 hours 04/27/22 09:50 Blood Culture - Preliminary Blood No Growth after 96 hours Assessment and Plan Assessment: Acute hypoxemic respiratory failure secondary to extensive pneumonia the patient had diffuse groundglass pulmonary infiltration of the right lung. Rule out atypical pneumonia. Rule out radiation pneumonia. Infiltration of the malignancy involving the right lung is felt to be less likely. The patient had progressive worsening in the oxygenation currently is up to 13 L of oxygen by nasal cannula. CAT scan of the chest shows a new groundglass right lung pulmona ry infiltrate which is quite extensive with central areas of consolidation and this is a new finding. Malignancy is felt to be less likely. Subsequently, there was further decompensation and worsening in her oxygenation and patient got transferred to the ICU on 100% on a facemask, became more delirious, agitated and restless and he was using assistive muscles of breathing. His reason respiratory failure and the chest x-ray findings were essentially stable and unchanged compared to yesterday. Blood gases was noted. Blood work was noted. Patient is a DNR/DNI CODE STATUS. Acute hyponatremia sodium level is 128 Acute on chronic kidney injury in the creatinine is up to 2.4 Abdominal pain of unclear etiology. CT scan of the abdomen and pelvis revealed diverticulosis without acute diverticulitis. Small right renal cortical cysts. Acute on chronic diastolic congestive heart failure History of atrial fibrillation, anticoagulated with Xarelto History of previous COVID-19 infection in June 2021 receiving monoclonal antibodies. He is vaccinated and boosted. CoVID screen this admission negative History of metastatic left lung pulmonary adenocarcinoma initial diagnosis in 017 most recently found to have metastatic lesions to the right lung, spine and brain status post radiation in February 2022 Coronary artery disease with previous stent placement 3 History of aortic valve stenosis status post TAVR procedure Hyperlipidemia Chronic kidney disease History of small bowel resection with ostomy and subsequent reversal History of prostate cancer status post radiation History of skin cancer status post resection Hypothyroidism Hypertension Plan: Patient is a DNR/DNI CODE STATUS. Family had multiple questions There were inquiring on intubation mechanical ventilation. I gave him all the information is needed. I think the patient's overall prognosis poor and based on his age and comorbidities and stage IV adenocarcinoma, history of I was going to be extremely poor. Based on that, the family opted to proceed with comfort care measures. Comfort care measures will be initiated on this patient. He was given 100% on a beta facemasks. No intubation. No life support. No mechanical ventilation. We'll continue with end-of-life care unit and ICU Family is at the bedside including and 3 other children
[2022-05-01] MEDS ORDERED: MORPHINE SULFATE (100 MG/2 ML) 100 MG in SODIUM CHLORIDE 0.9% 100 ML IV SCH (13:00)
--- NOTE | 2022-05-01 14:25 | P.PN ---
Progress Note - Text Progress Note Date: 05/01/22 Chief Complaint: Short of breath History present complaint: This is a pleasant 82-year-old patient of Dr. Roxie Melendez. Chronic stable medical conditions include coronary artery disease, CHF with EF of 50-65%, moderate aortic stenosis with sclerosis, atrial fibrillation, COPD, GERD, hyperlipidemia, hypertension, primary osteoarthritis,(s) sleep apnea, hypothyroid. 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 treated with chemotherapy -being followed with Dr. Rutherford. last chemotherapy in October 2019 History of Grabiel fundoplication, has had small bowel obstruction with resection colostomy and reversal of the same. prostate cancer treated with radiation.. Bronchoscopy in March 2021 negative for malignant cells. June 2021 had COVID 19. Patient now presents with increasing shortness of breath last 3-4 days. Congested cough. Able to expectorate only a little amount. Fevers. Poor appetite. Not been sleeping well. Normally uses a cane. Currently just become very weak in the last 2-3 days. No bowel movement for 3 days. Also complaining of some abdominal discomfort. No nausea vomiting. Admitted with pneumonia/tracheal bronchitis. IV ceftriaxone. COPD exacerbation. April 28: Sitting in the 80s the bed. Breathing a bit better. Decreased cough. Told to use incentive spirometry. Discussed with the patient and . Increase activity. On IV Solu-Medrol April 29: Sitting up in a chair. Tired.. A lot of coughing. Not much expectoration. Short of breath. CT chest showing consolidation/infiltrate, ordered by pulmonary. Continue with ceftriaxone. Steroids. Decreased appetite April 30: Oxygen requirement 13 L. Computed tomography scan results discussed with Dr. Sigala. Pneumonia/pneumonitis/radiation injury all possible. IV Solu-Medrol changed to prednisone. Tired. at the bedside. 90 discussion with the patient and about CODE STATUS. Wishes to be DO NOT RESUSCITATE. Some cough. May 01: On yesterday patient's respiratory status deteriorated. Moved to the ICU and 100% Ventimask. Earlier Dr. Sigala spoke to the family at the bedside. Decided to proceed with comfort measures. Patient put on oxygen and morphine. Other medications discontinued. Patient's in several family members at the bedside. Has several questions answered them. Active Medications Hydromorphone HCl (Hydromorphone 1 Mg/Ml 1 Ml Syringe) 1 mg IVP Q1H PRN PRN Reason: Moderate Pain (Scale 4 to 6) Last Admin: 05/01/22 13:15 Dose: 1 mg Sodium Chloride (Saline 0.9%) 1,000 mls @ 50 mls/hr IV .Q20H JUSTEN Last Admin: 05/01/22 09:17 Dose: 50 mls/hr Dexmedetomidine HCl 400 mcg/ (IV Solution) 100 mls @ 4.725 mls/hr IV .[id number] JUSTEN; Protocol Last Titration: 05/01/22 12:50 Dose: 0.8 mcg/kg/hr, 18.9 mls/hr Morphine Sulfate 100 mg/ (Sodium Chloride) 102 mls @ 1.02 mls/hr IV .Q24H JUSTEN; Protocol Last Titration: 05/01/22 13:30 Dose: 16 mg/hr, 16.32 mls/hr Lorazepam (Lorazepam 0.5 Mg Tab) 0.5 mg PO Q6HR PRN PRN Reason: Anxiety Last Admin: 05/01/22 01:50 Dose: 0.5 mg Ondansetron HCl (Ondansetron 4 Mg/2 Ml Vial) 4 mg IVP Q6HR PRN PRN Reason: Nausea And Vomiting Last Admin: 04/29/22 06:13 Dose: 4 mg Past medical history: Include Coronary artery disease with stent , stage IV adenocarcinoma of the lung on chemotherapy-last time in October 2019, history of Grabiel fundoplication, COPD in an ex-smoker, hypothyroidism, essential hypertension, hyperlipidemia, obstructive sleep apnea, CHF with diastolic dysfunction, moderate aortic stenosis with sclerosis. January 2020 - GI bleed. EGD was unremarkable. Bronchomalacia, atrial fibrillation, COVID 19 Social history: . Smoked from age of 14 through 1982 . alcohol occasionally. Retired. Uses a cane Family history: sister had rectal cancer Physical examination: VITAL SIGNS: 55, 25, 108/93, 92% on 15 L GENERAL: Laying in bed, oxygen support, rattly chest EYES: Pupils equal. Conjunctiva normal. NECK: JVD unable to assess; masses not palpable. HEART: First and second heart sounds are normal; no edema. LUNGS: Respiratory rate increased, decreased breath sounds, accessory muscles are working, coarse breath sounds. ABDOMEN: Soft, nontender, , liver spleen not palpable, no masses palpable. PSYCH: Unable to assess INVESTIGATIONS, reviewed in the clinical context: May 01: WBC 10.8 hemoglobin 11.2 potassium 3.9 BUN 70 creatinine 2.4 to sodium 128.Chest x-ray film personally reviewed by me-scattered infiltrate April 30: White count 9.7 hemoglobin 11.2 sodium 127 potassium 4.1 BUN 61 creatinine 2.06 Computed tomography scan chest: Extensive right-sided infiltrate/consolidation Pro-calcitonin 0.21 White count 8.8 hemoglobin 12.1 platelets 202 sodium 132 potassium 4.9. 24 creatinine 1.46 COVID 19: Not detected Chest x-ray film personally reviewed by me-acute and/or chronic changes Computed tomography scan abdomen and pelvis: Consolidation right lung base, small bilateral pleural effusions. Diverticulosis. Sclerosis of T10 and L3 [address] angiogram of the neck: 70% stenosis origin right internal carotid artery and 30 (stenosis origin left internal carotid artery. 50% stenosis of distal left vertebral artery. Assessment and plan: -Pneumonia, suspect gram-negative organism.: Worsening IV cefepime -Acute hypoxic respiratory failure, worsening 13 L high flow -Acute constipation. Lactulose 20 g. Add Metamucil. -Acute COPD exacerbation in a ex-smoker.: Slow to respond DuoNeb. Nebulized Pulmicort and long-acting beta agonist. Oral prednisone . -Paroxysmal atrial fibrillation, currently in sinus rhythm Lopressor 25 mg by mouth twice a day. Xarelto 20 mg daily at bedtime -Chronic tracheal bronchomalacia -Colonic diverticulosis, asymptomatic - Grabiel fundoplication, -Coronary artery disease with a prior history of stent Aspirin, Lopressor, -Stage IV adenocarcinoma of the lung received chemotherapy. In 2017. Most recently found a metastatic lesion in the right lung/spine/brain status post radiation in February 2022. Follow with pulmonary -Hypothyroidism Synthroid 50 g daily -Essential hypertension Cozaar 50 mg daily, Lopressor 25 twice a day -Obstructive sleep apnea -Chronic congestive heart failure from diastolic dysfunction EF 50-60%. Stable Lasix 20 mg daily-hold -Moderate aortic stenosis with sclerosis nonrheumatic Follow clinically -Primary osteoarthritis multiple joints Use. Medications as needed -Chronic kidney disease. 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 Follow clinically - chronic 70% stenosis origin right ICA. -DO NOT RESUSCITATE/Comfort Care measures initiated today Above medications were all discontinued. Including IV and by mouth. Patient put on a morphine drip. Oxygen for support. Many questions were answered including the and the children and other family members at the bedside. There is tenderness patient is actively dying. Comfort measures.
[2022-05-01 16:35] VITALS: BP 0/0; PULSE 0; RESP 0
--- NOTE | 2022-05-01 18:21 | P.DS ---
Providers Date of admission: 04/27/22 09:56 Expected date of discharge: 05/01/22 Attending physician: Tres Mina Consults: 04/27/22 10:09 Consult Physician Urgent Consulting Provider: Rose Mary Pineda Consult Reason/Comments: Abdominal pain Do you want consulting provider notified?: Yes 04/27/22 16:27 Consult Physician Routine Consulting Provider: Alissa Sigala Consult Reason/Comments: sob Do you want consulting provider notified?: Yes Primary care physician: Roxie Melendez [facility] Course: Chief Complaint: Short of breath History present complaint: This is a pleasant 82-year-old patient of Dr. Roxie Melendez. Chronic stable medical conditions include coronary artery disease, CHF with EF of 50-65%, moderate aortic stenosis with sclerosis, atrial fibrillation, COPD, GERD, hyperlipidemia, hypertension, primary osteoarthritis,(s) sleep apnea, hypothyroid. 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 treated with chemotherapy -being followed with Dr. Rutherford. last chemotherapy in October 2019 History of Grabiel fundoplication, has had small bowel obstruction with resection colostomy and reversal of the same. prostate cancer treated with radiation.. Bronchoscopy in March 2021 negative for malignant cells. June 2021 had COVID 19. Patient now presents with increasing shortness of breath last 3-4 days. Congested cough. Able to expectorate only a little amount. Fevers. Poor appetite. Not been sleeping well. Normally uses a cane. Currently just become very weak in the last 2-3 days. No bowel movement for 3 days. Also complaining of some abdominal discomfort. No nausea vomiting. Admitted with pneumonia/tracheal bronchitis. IV ceftriaxone. COPD exacerb ation. April 28: Sitting in the 80s the bed. Breathing a bit better. Decreased cough. Told to use incentive spirometry. Discussed with the patient and . Increase activity. On IV Solu-Medrol April 29: Sitting up in a chair. Tired.. A lot of coughing. Not much expectoration. Short of breath. CT chest showing consolidation/infiltrate, ordered by pulmonary. Continue with ceftriaxone. Steroids. Decreased appetite April 30: Oxygen requirement 13 L. Computed tomography scan results discussed with Dr. Sigala. Pneumonia/pneumonitis/radiation injury all possible. IV Solu-Medrol changed to prednisone. Tired. at the bedside. 90 discussion with the patient and about CODE STATUS. Wishes to be DO NOT RESUSCITATE. Some cough. May 01: On yesterday patient's respiratory status deteriorated. Moved to the ICU and 100% Ventimask. Earlier Dr. Sigala spoke to the family at the bedside. Decided to proceed with comfort measures. Patient put on oxygen and morphine. Other medications discontinued. Patient's in several family members at the bedside. Has several questions answered them. Late in the day patient Past medical history: Include Coronary artery disease with stent , stage IV adenocarcinoma of the lung on chemotherapy-last time in October 2019, history of Grabiel fundoplication, COPD in an ex-smoker, hypothyroidism, essential hypertension, hyperlipidemia, obstructive sleep apnea, CHF with diastolic dysfunction, moderate aortic stenosis with sclerosis. January 2020 - GI bleed. EGD was unremarkable. Bronchomalacia, atrial fibrillation, COVID 19 Social history: . Smoked from age of 14 through 1982 . alcohol occasionally. Retired. Uses a cane Family history: sister had rectal cancer INVESTIGATIONS, reviewed in the clinical context: May 01: WBC 10.8 hemoglobin 11.2 potassium 3.9 BUN 70 creatinine 2.4 to sodium 128.Chest x-ray film personally reviewed by me-scattered infiltrate April 30: White count 9.7 hemoglobin 11.2 sodium 127 potassium 4.1 BUN 61 creatinine 2.06 Computed tomography scan chest: Extensive right-sided infiltrate/consolidation Pro-calcitonin 0.21 White count 8.8 hemoglobin 12.1 platelets 202 sodium 132 potassium 4.9. 24 creatinine 1.46 COVID 19: Not detected Chest x-ray film personally reviewed by me-acute and/or chronic changes Computed tomography scan abdomen and pelvis: Consolidation right lung base, small bilateral pleural effusions. Diverticulosis. Sclerosis of T10 and L3 [address] angiogram of the neck: 70% stenosis origin right internal carotid artery and 30 (stenosis origin left internal carotid artery. 50% stenosis of distal left vertebral artery. Cause of : Stage IV adenocarcinoma of the lung. Assessment and plan: -Pneumonia, suspect gram-negative organism.: Worsening IV cefepime -Acute hypoxic respiratory failure, worsening 13 L high flow -Acute constipation. Lactulose 20 g. Add Metamucil. -Acute COPD exacerbation in a ex-smoker.: Slow to respond DuoNeb. Nebulized Pulmicort and long-acting beta agonist. Oral prednisone . -Paroxysmal atrial fibrillation, currently in sinus rhythm Lopressor 25 mg by mouth twice a day. Xarelto 20 mg daily at bedtime -Chronic tracheal bronchomalacia -Colonic diverticulosis, asymptomatic - Grabiel fundoplication, -Coronary artery disease with a prior history of stent Aspirin, Lopressor, -Stage IV adenocarcinoma of the lung received chemotherapy. In 2016. Most recently found a metastatic lesion in the right lung/spine/brain status post radiation in February 2022. Follow with pulmonary -Hypothyroidism Synthroid 50 g daily -Essential hypertension Cozaar 50 mg daily, Lopressor 25 twice a day -Obstructive sleep apnea -Chronic congestive heart failure from diastolic dysfunction EF 50-60%. Stable Lasix 20 mg daily-hold -Moderate aortic stenosis with sclerosis nonrheumatic Follow clinically -Primary osteoarthritis multiple joints Use. Medications as needed -Chronic kidney disease. 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 Follow clinically - chronic 70% stenosis origin right ICA. -DO NOT RESUSCITATE/Comfort Care measures initiated today Patient Patient Condition at Discharge: Poor Plan - Discharge Summary New Discharge Prescriptions: No Action Levothyroxine Sodium [Synthroid] 50 mcg PO DAILY FLUoxetine HCL [PROzac] 20 mg PO DAILY Omeprazole [PriLOSEC] 40 mg PO HS Folic Acid 1 mg PO DAILY Montelukast Sodium [Singulair] 10 mg PO HS Losartan Potassium 50 mg PO DAILY Furosemide [Lasix] 20 mg PO DAILY Atorvastatin [Lipitor] 40 mg PO HS #30 tab Metoprolol Tartrate [Lopressor] 25 mg PO BID Albuterol Sulfate [Ventolin HFA] 2 puff INHALATION RT-Q4H PRN PRN Reason: Shortness Of Breath predniSONE 5 mg PO DAILY Tamsulosin HCl [Flomax] 0.4 mg PO DAILY Sertraline [Zoloft] 50 mg PO DAILY Meclizine [Antivert] 25 mg PO TID PRN PRN Reason: dizziness Fluticasone Propion/Salmeterol [Advair 250-50 Diskus] 1 puff INHALATION RT- BID Amiodarone [Cordarone] 200 mg PO BID Rivaroxaban [Xarelto] 20 mg PO W/SUPPER Discharge Medication List FLUoxetine HCL [PROzac] 20 mg PO DAILY 08/05/14 [History] Levothyroxine Sodium [Synthroid] 50 mcg PO DAILY 08/05/14 [History] Omeprazole [PriLOSEC] 40 mg PO HS 08/05/14 [History] Folic Acid 1 mg PO DAILY 02/12/18 [History] Montelukast Sodium [Singulair] 10 mg PO HS 04/05/20 [History] Losartan Potassium 50 mg PO DAILY 06/11/20 [History] Furosemide [Lasix] 20 mg PO DAILY 06/30/20 [History] Atorvastatin [Lipitor] 40 mg PO HS #30 tab 08/17/21 [Rx] Albuterol Sulfate [Ventolin HFA] 2 puff INHALATION RT-Q4H PRN 04/27/22 [History] Amiodarone [Cordarone] 200 mg PO BID 04/27/22 [History] Fluticasone Propion/Salmeterol [Advair 250-50 Diskus] 1 puff INHALATION RT-BID 04/27/22 [History] Meclizine [Antivert] 25 mg PO TID PRN 04/27/22 [History] Metoprolol Tartrate [Lopressor] 25 mg PO BID 04/27/22 [History] Rivaroxaban [Xarelto] 20 mg PO W/SUPPER 04/27/22 [History] Sertraline [Zoloft] 50 mg PO DAILY 04/27/22 [History] Tamsulosin HCl [Flomax] 0.4 mg PO DAILY 04/27/22 [History] predniSONE 5 mg PO DAILY 04/27/22 [History] Follow up Appointment(s)/Referral(s): Rsoe Mary Pineda MD [STAFF PHYSICIAN] - 05/17/22 Roxie Melendez DO [Primary Care Provider] - 1-2 days Patient Instructions/Handouts: Gallstones (DC)
[2022-05-02] MEDS ORDERED: LEVOFLOXACIN 750 MG TAB PO SCH (09:00)
== END 2022-05-01 18:31 | disposition expired | DRG 177 ==
LOC: EC 06:34 → 4SSUR 09:56 → 2SICU 05-01 08:51
PROVIDERS: ADMIT Hospitalist; ATTEND Hospitalist
PROC: 5A0945A Assistance with Respiratory Ventilation, 24-96 Consecutive Hours, High Flow/Velocity Cannula (ICD-10-PCS; principal; 2022-04-28)
DX: J15.6 Pneumonia due to other Gram-negative bacteria (principal); I50.33 Acute on chronic diastolic (congestive) heart failure; J96.01 Acute respiratory failure with hypoxia; C79.31 Secondary malignant neoplasm of brain; C79.51 Secondary malignant neoplasm of bone; J44.1 Chronic obstructive pulmonary disease with (acute) exacerbation; J44.0 Chronic obstructive pulmonary disease with (acute) lower respiratory infection; I13.0 Hypertensive heart and chronic kidney disease with heart failure and stage 1 through stage 4 chronic kidney disease, or unspecified chronic kidney disease; E87.1 Hypo-osmolality and hyponatremia; C34.92 Malignant neoplasm of unspecified part of left bronchus or lung; J98.09 Other diseases of bronchus, not elsewhere classified; I65.02 Occlusion and stenosis of left vertebral artery; I35.0 Nonrheumatic aortic (valve) stenosis; E03.9 Hypothyroidism, unspecified; I65.23 Occlusion and stenosis of bilateral carotid arteries; N18.2 Chronic kidney disease, stage 2 (mild); R74.01 Elevation of levels of liver transaminase levels; R45.1 Restlessness and agitation; Z99.81 Dependence on supplemental oxygen; Z20.822 Contact with and (suspected) exposure to COVID-19; Z66 Do not resuscitate; Z51.5 Encounter for palliative care; Z95.2 Presence of prosthetic heart valve; Z79.01 Long term (current) use of anticoagulants; W19.XXXA Unspecified fall, initial encounter; N40.0 Benign prostatic hyperplasia without lower urinary tract symptoms; N28.1 Cyst of kidney, acquired; M15.9 Polyosteoarthritis, unspecified; K80.20 Calculus of gallbladder without cholecystitis without obstruction; K59.00 Constipation, unspecified; K21.9 Gastro-esophageal reflux disease without esophagitis; K57.30 Diverticulosis of large intestine without perforation or abscess without bleeding; I48.0 Paroxysmal atrial fibrillation; I45.4 Nonspecific intraventricular block; I25.10 Atherosclerotic heart disease of native coronary artery without angina pectoris; I25.5 Ischemic cardiomyopathy; H91.90 Unspecified hearing loss, unspecified ear; G47.33 Obstructive sleep apnea (adult) (pediatric); F41.9 Anxiety disorder, unspecified; E78.5 Hyperlipidemia, unspecified; Z98.42 Cataract extraction status, left eye; Z95.5 Presence of coronary angioplasty implant and graft; Z92.3 Personal history of irradiation; Z92.21 Personal history of antineoplastic chemotherapy; Z87.891 Personal history of nicotine dependence; Z86.16 Personal history of COVID-19; Z85.828 Personal history of other malignant neoplasm of skin; Z85.46 Personal history of malignant neoplasm of prostate; Z79.899 Other long term (current) drug therapy; Z79.890 Hormone replacement therapy; Z79.82 Long term (current) use of aspirin; Z79.51 Long term (current) use of inhaled steroids; Z87.19 Personal history of other diseases of the digestive system; Z90.49 Acquired absence of other specified parts of digestive tract; Z80.7 Family history of other malignant neoplasms of lymphoid, hematopoietic and related tissues; Z80.1 Family history of malignant neoplasm of trachea, bronchus and lung; Z80.0 Family history of malignant neoplasm of digestive organs
CPT/HCPCS: 36415; 36600; 71045; 71046; 71260; 74177; 80053; 81001; 82150; 82805; 83605; 83690; 83735; 83880; 84145; 85025; 85610; 85730; 87040; 87070; 87205; 87449; 87502; 87635; 93005; 94640; 94760; 96365; 96367; 96375; 99285